=== PATIENT | male | born 1940 | race Caucasian/White ===

== ENCOUNTER → 2016-06-23 | Outpatient (CLI) | payer OTHER, MEDICARE ==
[~2016-06-23] MED LIST: ALLO100T PO; ALLO1TAB51 PO; BIOF500T PO; CALC-393 PO; CALCTAB5 PO; CHOL1000 PO; CHOL5000 PO; CYM/30 PO; DOCU100C22 PO; DOCU100C31 PO; DXY100 PO; FLUOCRE TOP; FURO-85 PO; LYR50 PO; METO5TAB25 PO; MULT-845 PO; OXYC-57 PO; POTA10CA28 PO; TAMS0.4C38 PO; TAMS0.4C59 PO; TNR25 PO; WARF5TAB7 PO; XRL15 PO
== END | disposition home or self-care (01) ==
LOC: C.LABBC 10:16
PROVIDERS: ATTEND Urology
DX: N40.0 Benign prostatic hyperplasia without lower urinary tract symptoms (principal); I48.91 Unspecified atrial fibrillation; Z12.5 Encounter for screening for malignant neoplasm of prostate

== ENCOUNTER → 2016-09-10 | Outpatient (CLI) | payer OTHER, MEDICARE ==
--- NOTE | 2016-09-10 12:45 | DIAGNOSTIC IMAGING REPORT ---
CHEST 2 VIEWS ROUTINE CLINICAL HISTORY: R05 [id number] COMPARISON STUDY: 09/11/2013 FINDINGS: The heart is enlarged. Postsurgical changes are present in left hemithorax. There is a small left pleural effusion. There is no acute parenchymal consolidation. There is prominence of the central pulmonary arteries. Pulmonary arterial hypertension must be considered. There is calcification of the posterior longitudinal ligament with the dorsal spine.[ IMPRESSION: 1. Cardiomegaly with possible pulmonary hypertension 2. Mild left pleural effusion 3. No evidence of acute parenchymal consolidation Electronically signed by: Manuel Rogers M.D. 09/10/2016 12:43 PM Dictated Date/Time: 09/10/2016 12:42 PM
== END | disposition home or self-care (01) ==
LOC: C.LABBC 12:29
PROVIDERS: ATTEND Physician Assistant
DX: R05 Cough (principal); I48.91 Unspecified atrial fibrillation; R73.9 Hyperglycemia, unspecified; M19.90 Unspecified osteoarthritis, unspecified site; N18.9 Chronic kidney disease, unspecified; I10 Essential (primary) hypertension; I51.7 Cardiomegaly; J90 Pleural effusion, not elsewhere classified

== ENCOUNTER → 2016-11-24 | Outpatient (CLI) | payer OTHER, MEDICARE ==
[2016-11-24 13:41] LABS: INR 1.2 (0.9-1.1); PROTHROMBIN TIME (PATIENT) 13.2 SECONDS (9.0-12.0)
== END | disposition home or self-care (01) ==
LOC: C.LABBC 09:34
PROVIDERS: ATTEND Internal Medicine Geriatric Medicine
DX: I10 Essential (primary) hypertension (principal); I48.91 Unspecified atrial fibrillation; N18.9 Chronic kidney disease, unspecified; M19.90 Unspecified osteoarthritis, unspecified site; R73.9 Hyperglycemia, unspecified

== ENCOUNTER → 2016-12-16 | Outpatient (CLI) | payer OTHER, MEDICARE ==
[2016-12-16 13:31] LABS: BASO ABS # 0.06 K/uL (0-0.2); COMPLETE YES; EOS % 6.3 %; HEMATOCRIT 46.4 % (42-52); IG% 0.2 %; LYMPH % 19.5 %; LYMPH ABS # 1.15 K/uL (1.2-3.4); MEAN CELL VOLUME 103.8 fL (80-100); MEAN CORPUSCULAR HEMOGLOBIN 33.8 pg (25-34); MEAN CORPUSCULAR HGB CONC 32.5 g/dl (32-36); MEAN PLATELET VOLUME 11.9 fL (7.4-10.4); PLATELET COUNT 178 K/uL (130-400); RED BLOOD COUNT 4.47 M/uL (4.7-6.1); WHITE BLOOD COUNT 5.91 K/uL (4.8-10.8)
[2016-12-16 13:53] LABS: BLOOD UREA NITROGEN 46 mg/dl (7-18); BUN/CREATININE RATIO 32.8 (10-20); CALCIUM 9.8 mg/dl (8.5-10.1); CARBON DIOXIDE 31 mmol/L (21-32); CHLORIDE 100 mmol/L (98-107); GLUCOSE 112 mg/dl (70-99); POTASSIUM 3.5 mmol/L (3.5-5.1); SODIUM 139 mmol/L (136-145)
[2016-12-16 14:56] LABS: LYME DISEASE AB IGM NEG (NEG)
[2016-12-16 14:58] LABS: LYME DISEASE AB IGG POS (NEG)
[2016-12-17 07:38] LABS: ESTIMATED AVERAGE GLUCOSE 117 mg/dl; HA1C FLAG Normal (Normal)
[2016-12-22 23:16] LABS: 18KDIGG BAND NONREACTIVE (NONREACTIVE); 23KDIGG BAND NONREACTIVE (NONREACTIVE); 23KDIGM BAND NONREACTIVE (NONREACTIVE); 28KDIGG BAND NONREACTIVE (NONREACTIVE); 30KDIGG BAND NONREACTIVE (NONREACTIVE); 39KDIGG BAND NONREACTIVE (NONREACTIVE); 39KDIGM BAND NONREACTIVE (NONREACTIVE); 41KDIGG BAND REACTIVE (NONREACTIVE); 41KDIGM BAND NONREACTIVE (NONREACTIVE); 45KDIGG BAND NONREACTIVE (NONREACTIVE); 58KDIGG BAND NONREACTIVE (NONREACTIVE); 66KDIGG BAND NONREACTIVE (NONREACTIVE); 93KDIGG BAND NONREACTIVE (NONREACTIVE)
== END | disposition home or self-care (01) ==
LOC: C.LABBC 10:36
PROVIDERS: ATTEND Internal Medicine Geriatric Medicine
DX: R73.9 Hyperglycemia, unspecified (principal); G62.9 Polyneuropathy, unspecified; I10 Essential (primary) hypertension

== ENCOUNTER 2016-12-22 12:38 | Inpatient (IN) | payer OTHER, MEDICARE ==
[~2016-12-22] VITALS: Ht 172.7 cm; Wt 122.0 kg
[~2016-12-22 12:38] MED LIST changes: -ALLO100T PO; -CALC-393 PO; -CHOL1000 PO; -CYM/30 PO; -DOCU100C31 PO; -DXY100 PO; -FLUOCRE TOP; -OXYC-57 PO; -TAMS0.4C38 PO; -XRL15 PO
[2016-12-22 12:40] VITALS: Ht 172.7 cm; Wt 122.0 kg
[2016-12-22] MEDS ORDERED: FLUOCRE TOP (13:09)
[2016-12-22] MEDS ORDERED: TAMS0.4C38 PO (13:09)
[2016-12-22] MEDS ORDERED: DXY100 PO (13:09)
[2016-12-22] MEDS ORDERED: POTA10CA28 PO (13:09)
[2016-12-22] MEDS ORDERED: DOCU100C31 PO (13:09)
[2016-12-22] MEDS ORDERED: ALLO100T PO (13:09)
[2016-12-22] MEDS ORDERED: OXYC-57 PO (13:09)
[2016-12-22] MEDS ORDERED: CYM/30 PO (13:09)
[2016-12-22] MEDS ORDERED: XRL15 PO (13:09)
[2016-12-22] MEDS ORDERED: CHOL1000 PO (13:09)
[2016-12-22] MEDS ORDERED: CALC-393 PO (13:09)
--- NOTE | 2016-12-22 13:26 | EMERGENCY ROOM VISIT NOTE ---
History Report prepared by Avelino: Philip Arriaga Under the Supervision of: Dr. Filipe Newman M.D. First contact with patient: 13:07 Chief Complaint: LEG PAIN,LEG INJURY Stated Complaint: BRUISE AND PAIN IN RIGHT CALF History of Present Illness The patient is a 75 year old male who presents to the Emergency Room with complaints of constant left leg pain and swelling for the past five days. The patient states that she got up from his lounge chair, and he stumbled and hit his cane on his legs, and it scraped it on the way down. He states that the next day he was having severe pain and some blistering, so he went to the hospital for x-rays and an ultrasound. There were no fractures or blood clots. The patient states that he has been taking Percocet and Tylenol for the pain every 6 hours. Additionally, the patient states that he is on Xarelto for A- fib. The patient states that he saw his doctor this morning, and they told him to come here for further evaluation. The patient denies any fevers, chills, toe pain, numbness, weakness, chest pain, or shortness of breath. Source of History: patient Onset: five days ago Position: leg (left) Quality: other (swelling) Timing: constant Associated Symptoms: No fevers, No chills, No chest pain, No SOB, No weakness, No numbness Note: Associated symptoms: blisters Review of Systems See HPI for pertinent positives & negatives. A total of 10 systems reviewed and were otherwise negative. Past Medical & Surgical Medical Problems: (1) Anticoagulants,Lt,Current Use (2) Atrial Fibrillation (3) Calculus Of Kidney (4) Chronic Kidney Disease, Unspecified (5) Diab Adela Wo Compl, Type Ii Or Unspec Type, Not Uncntrld (6) Gout Nos (7) Hx-Venous Thrombosis&Embolism (8) Hyperlipidemia Nec/Nos (9) Hypertension Nos (10) Knee Joint Replacement Status (11) Leg injury (12) Lumbago (13) Obstructive Sleep Apnea (Adult) (Pediatric) (14) Osteoarthros Nos-Unspec (15) Personal History Of Pulmonary Embolism (16) Personal History Of Tuberculosis (17) Spinal Stenosis-Oth Site Surgical Problems: (1) History of back surgery Old medical records were reviewed. Nurse's notes were reviewed and I agree with. Family History Patient reports no known family medical history. Social History Smoking Status: Never Smoker Drug Use: none Marital Status: Housing Status: lives with family Occupation Status: retired Current/Historical Medications Scheduled Allopurinol (Zyloprim), 200 MG PO DAILY Atenolol (Atenolol), 25 MG PO DAILY Bioflavonoid Products (Shante-C), 1 TAB PO DAILY Calcium Carbonate (Calcium), 1,200 MG PO DAILY Cholecalciferol (Vitamin D3), 1,000 UNITS PO DAILY Docusate Sodium (Docusate Sodium), 100 MG PO BID Doxycycline Hyclate (Doxycycline Hyclate), 100 MG PO BID Duloxetine HCl (Cymbalta), 30 MG PO QPM Fluocinonide Emulsified Base (Fluocinonide-E), 1 APPLN TOP BID Furosemide (Lasix), 60 MG PO QAM Metolazone (Zaroxolyn), 5 MG PO MWF Multiple Vitamins W/ Minerals (Centrum Silver Adult 50+), 1 TAB PO QDB Potassium Chloride (Micro-K Ext Rel), 20 MEQ PO AMPM Rivaroxaban (Xarelto), 15 MG PO DAILY Tamsulosin Hcl (Flomax), 0.4 MG PO QPM Scheduled PRN Oxycodone/Acetaminophen 5MG/325MG (Percocet 5MG/325MG), 1 TABLET PO Q6H PRN for Pain Allergies Coded Allergies: No Known Allergies (Verified , 10/12/15) Physical Exam Vital Signs Date Time Temp Pulse Resp B/P (MAP) Pulse Ox O2 Delivery O2 Flow Rate FiO2 12/22/16 16:30 69 18 116/63 94 12/22/16 15:25 95 Room Air 12/22/16 14:30 65 20 115/39 95 12/22/16 12:40 36.6 63 20 128/64 96 Physical Exam General: Non-ill appearing older male in no acute distress. HEENT: Normal cephalic atraumatic. Pupils are equal round and reactive to light. Extraocular movements are intact. Oropharynx is pink with moist mucous membranes. No swelling of the mouth lips or tongue. Neck: Supple with a midline trachea. No meningeal signs or stiffness, no JVD or bruits. No Stridor. Chest: Clear to auscultation bilaterally. No wheezes or rhonchi. No increased work of breathing. Heart: regular rate and rhythm. Abdomen: Soft nontender, nondistended without rebound guarding or rigidity. Extremities: Left lower extremity has marked swelling and edema with purplish discoloration. Dopplerable pulse. No pain in toes. Normal motor and sensation in the toes. No cyanosis clubbing or edema. No calf tenderness or assymetry Spine/Back. Non tender to palpation. No CVA tenderness Skin: Good turgor without rashes. Neurologic exam: Cranial nerves two through 12 are intact. Motor and sensation are intact and symmetrical throughout. Medical Decision & Procedures ER Provider Diagnostic Interpretation: Radiology results as stated below per my review and radiologist interpretation: LEFT LOWER EXTREMITY VENOUS DOPPLER HISTORY: eval for DVT, hematoma COMPARISON STUDY: None. FINDINGS: There is normal compressibility, flow, and augmentation within the left lower extremity deep venous system. Subcutaneous edema/fluid within the left calf IMPRESSION: No DVT within the left lower extremity. Subcutaneous edema/fluid within the left calf. Electronically signed by: Richard Torres M.D. 12/22/2016 2:27 PM Dictated Date/Time: 12/22/2016 2:27 PM CHEST ONE VIEW PORTABLE CLINICAL HISTORY: Atypical chest pain COMPARISON STUDY: 09/10/2016 FINDINGS: The heart remains enlarged. There is stable prominence of central pulmonary arteries. There is no lobar consolidation. There is no failure. There is chronic blunting of the left lateral costophrenic angle.[ IMPRESSION: 1. Cardiomegaly with possible pulmonary arterial hypertension 2. No evidence of focal pulmonary consolidation 3. Stable left pleural fluid/scarring Electronically signed by: Manuel Rogers M.D. 12/22/2016 1:37 PM Dictated Date/Time: 12/22/2016 1:36 PM Laboratory Results 12/22/16 13:34 Red Blood Count 3.91, Mean Corpuscular Volume 102.6, Mean Corpuscular Hemoglobin 32.2, Mean Corpuscular Hemoglobin Concent 31.4, Mean Platelet Volume 10.6, Neutrophils (%) (Auto) 67.4, Lymphocytes (%) (Auto) 16.5, Monocytes (%) ( Auto) 12.9, Eosinophils (%) (Auto) 2.6, Basophils (%) (Auto) 0.5, Neutrophils # (Auto) 4.90, Lymphocytes # (Auto) 1.20, Monocytes # (Auto) 0.94, Eosinophils # ( Auto) 0.19, Basophils # (Auto) 0.04 12/22/16 13:34 Test 12/22/16 13:34 White Blood Count 7.28 K/uL (4.8-10.8) Red Blood Count 3.91 M/uL (4.7-6.1) Hemoglobin 12.6 g/dL (14.0-18.0) Hematocrit 40.1 % (42-52) Mean Corpuscular Volume 102.6 fL (80-100) Mean Corpuscular Hemoglobin 32.2 pg (25-34) Mean Corpuscular Hemoglobin Concent 31.4 g/dl (32-36) Platelet Count 179 K/uL (130-400) Mean Platelet Volume 10.6 fL (7.4-10.4) Neutrophils (%) (Auto) 67.4 % Lymphocytes (%) (Auto) 16.5 % Monocytes (%) (Auto) 12.9 % Eosinophils (%) (Auto) 2.6 % Basophils (%) (Auto) 0.5 % Neutrophils # (Auto) 4.90 K/uL (1.4-6.5) Lymphocytes # (Auto) 1.20 K/uL (1.2-3.4) Monocytes # (Auto) 0.94 K/uL (0.11-0.59) Eosinophils # (Auto) 0.19 K/uL (0-0.5) Basophils # (Auto) 0.04 K/uL (0-0.2) RDW Standard Deviation 56.6 fL (36.4-46.3) RDW Coefficient of Variation 15.2 % (11.5-14.5) Immature Granulocyte % (Auto) 0.1 % Immature Granulocyte # (Auto) 0.01 K/uL (0.00-0.02) Nucleated RBC Absolute Count (auto) 0.03 K/uL (0-0) Nucleated Red Blood Cells % 0.4 % Prothrombin Time 14.0 SECONDS (9.0-12.0) Prothromb Time International Ratio 1.3 (0.9-1.1) Activated Partial Thromboplast Time 38.2 SECONDS (21.0-31.0) Partial Thromboplastin Ratio 1.5 Anion Gap 6.0 mmol/L (3-11) Estimated GFR () 48.1 Estimated GFR (Non- 41.5 BUN/Creatinine Ratio 37.8 (10-20) Calcium Level 9.5 mg/dl (8.5-10.1) Total Bilirubin 1.5 mg/dl (0.2-1) Direct Bilirubin 0.4 mg/dl (0-0.2) Aspartate Amino Transf (AST/SGOT) 22 U/L (15-37) Alanine Aminotransferase (ALT/SGPT) 25 U/L (12-78) Alkaline Phosphatase 54 U/L (45-117) Total Protein 8.0 gm/dl (6.4-8.2) Albumin 3.3 gm/dl (3.4-5.0) Lipase 108 U/L (73-393) Laboratory studies as stated above per my review. Medications Administered Medications (Trade) Dose Ordered Sig/Guero Route Start Time Stop Time Status Last Admin Dose Admin Morphine Sulfate (MoRPHine SULFATE INJ) 4 mg NOW STAT IV 12/22/16 14:56 12/22/16 14:57 DC 12/22/16 15:04 4 MG Ondansetron HCl (Zofran Inj) 4 mg NOW STAT IV 12/22/16 14:56 12/22/16 14:57 DC 12/22/16 15:03 4 MG Ondansetron HCl (Zofran Inj) 4 mg Q6H PRN IV 12/22/16 16:30 01/21/17 16:29 12/22/16 16:45 4 MG Morphine Sulfate (MoRPHine SULFATE INJ) 2 mg Q2H PRN IV 12/22/16 16:30 01/05/17 16:29 12/22/16 16:45 2 MG ECG Indication: other (leg injruy) Rate (beats per minute): 58 Rhythm: atrial fibrillation Findings: other (low voltage non-specific T wave abnormality) Comparison ECG Date: 09/17/13 Change: Rate has decreased ED Course 1307: Past medical records reviewed. The patient was evaluated in room A12, and a complete history and physical examination were performed. 1450: I reevaluated the patient, and he was resting. 1456: Zofran Inj 4mg IV, Morphine Sulfate 4mg IV 1526: Discussed the patient's case with Deedee Sparrow PA-C. The patient will be evaluated for further management. Medical Decision Differentials include, but are not limited to; DVT, compartment syndrome, infection, and hematoma This patient comes in as described above he's had pain and swelling in his left leg after falling last week he is on Xarelto is seen by his primary care doctor who referred in the ER for concern for possible compartment syndrome. The patient has no pain in his toes or numbness or weakness. He does have a dopplerable pulse. He does have significant edema in his foot and calf says difficult to feel he tells me that the leg. It has been unchanged for the last several days. He does not appear acutely worse today according to the family, he does have a lot of pain management problems with this. He was given IV morphine and Zofran. EKG and blood testing was obtained. He has no DVT but he has edema. I do think he needs to be admitted for further treatment and evaluation monitoring orthopedic consultation and observation. I have consulted the [facility] [address] hospitalist and they saw him in the ER. Medication Reconcilliation Current Medication List: was personally reviewed by me Blood Pressure Screening Patient's blood pressure: Normal blood pressure Consults Time Called: 1520 Consulting Physician: Deedee Sparrow PA-C Returned Call: 1526 Discussed the patient's case with Deedee Sparrow PA-C. The patient will be evaluated for further management. Impression Primary Impression: Edema of left lower extremity Additional Impression: On rivaroxaban therapy Scribe Attestation The scribe's documentation has been prepared under my direction and personally reviewed by me in its entirety. I confirm that the note above accurately reflects all work, treatment, procedures, and medical decision making performed by me. Departure Information Dispostion Being Evaluated By Hospitalist Referrals Saleem Gil M.D. (PCP) Patient Instructions My [facility] Problem Qualifiers
--- NOTE | 2016-12-22 13:38 | DIAGNOSTIC IMAGING REPORT ---
CHEST ONE VIEW PORTABLE CLINICAL HISTORY: Atypical chest pain COMPARISON STUDY: 09/10/2016 FINDINGS: The heart remains enlarged. There is stable prominence of central pulmonary arteries. There is no lobar consolidation. There is no failure. There is chronic blunting of the left lateral costophrenic angle.[ IMPRESSION: 1. Cardiomegaly with possible pulmonary arterial hypertension 2. No evidence of focal pulmonary consolidation 3. Stable left pleural fluid/scarring Electronically signed by: Manuel Rogers M.D. 12/22/2016 1:37 PM Dictated Date/Time: 12/22/2016 1:36 PM
[2016-12-22 13:49] LABS: BASO % 0.5 %; BASO ABS # 0.04 K/uL (0-0.2); COMPLETE YES; EOS % 2.6 %; HEMATOCRIT 40.1 % (42-52); IG% 0.1 %; LYMPH % 16.5 %; MEAN CELL VOLUME 102.6 fL (80-100); MEAN CORPUSCULAR HEMOGLOBIN 32.2 pg (25-34); MEAN CORPUSCULAR HGB CONC 31.4 g/dl (32-36); MEAN PLATELET VOLUME 10.6 fL (7.4-10.4); MONO % 12.9 %; NEUT % 67.4 %; PLATELET COUNT 179 K/uL (130-400); RED BLOOD COUNT 3.91 M/uL (4.7-6.1); WHITE BLOOD COUNT 7.28 K/uL (4.8-10.8)
[2016-12-22 14:06] LABS: INR 1.3 (0.9-1.1); PARTIAL THROMBOPLASTIN RATIO 1.5
[2016-12-22 14:14] LABS: ALT/SGPT 25 U/L (12-78); BLOOD UREA NITROGEN 61 mg/dl (7-18); BUN/CREATININE RATIO 37.8 (10-20); CALCIUM 9.5 mg/dl (8.5-10.1); CARBON DIOXIDE 32 mmol/L (21-32); CHLORIDE 98 mmol/L (98-107); GLUCOSE 109 mg/dl (70-99); POTASSIUM 3.6 mmol/L (3.5-5.1); SODIUM 136 mmol/L (136-145)
[2016-12-22 14:16] LABS: ALKALINE PHOSPHATASE 54 U/L (45-117); AST/SGOT 22 U/L (15-37)
--- NOTE | 2016-12-22 14:28 | DIAGNOSTIC IMAGING REPORT ---
LEFT LOWER EXTREMITY VENOUS DOPPLER HISTORY: eval for DVT, hematoma COMPARISON STUDY: None. FINDINGS: There is normal compressibility, flow, and augmentation within the left lower extremity deep venous system. Subcutaneous edema/fluid within the left calf IMPRESSION: No DVT within the left lower extremity. Subcutaneous edema/fluid within the left calf. Electronically signed by: Richard Torres M.D. 12/22/2016 2:27 PM Dictated Date/Time: 12/22/2016 2:27 PM
[2016-12-22] MEDS ORDERED: ONDANSETRON INJ 2 MG/ML 2 ML VIAL IV STA (14:56)
[2016-12-22] MEDS ORDERED: MoRPHine SULFATE 4 MG/ML 1 ML CARP\\VIAL IV STA (14:56)
[2016-12-22 15:25] VITALS: O2SAT 95
--- NOTE | 2016-12-22 16:17 | History and Physical ---
History & Physical Date & Time of Service: Dec 22, 2016 at 16:07 Chief Complaint: Bruise And Pain In Right Calf Primary Care Physician: Saleem Gil M.D. History of Present Illness Source: patient, family This patient is a 75-year-old male that presents emergency department with diffuse left leg swelling and pain after having a mechanical fall 5 days ago. The patient typically ambulates with 2 canes. He landed on his cane during the fall. He denies any other injuries. The patient was evaluated at [facility] 2 days after the fall. Imaging was performed. No fractures of the leg were noted. The patient has a history of A. fib and is on chronic anticoagulation with Xarelto. The patient was seen by his primary care physician's office this morning, and sent here for further evaluation. The patient does complain of significant pain in the leg. He denies any numbness, tingling or weakness into the foot. Past Medical/Surgical History Surgical Problems: (1) History of back surgery Status: Chronic A. fib Diastolic heart failure Chronic kidney disease creatinine typically 1.3-1.7 Hypertension Peripheral neuropathy History of pancreatic cysts. History of spinal stenosis status post spinal surgery in 2013 Family History Patient reports no known family medical history. Social History Smoking Status: Never Smoker Smokeless Tobacco Use: No Alcohol Use: none Drug Use: none Marital Status: Housing status: lives with family Occupational Status: retired Immunizations History of Influenza Vaccine: N/A Influenza Vaccine Date: Feb 07, 2010 History of Tetanus Vaccine?: Yes Tetanus Immunization Date: May 30, 2005 History of Pneumococcal: Yes Pneumococcal Date: May 30, 2005 History of Hepatitis B Vaccine: No Multi-Drug Resistant Organisms History of MDRO: No Allergies Coded Allergies: No Known Allergies (Verified , 10/12/15) Home Medications Scheduled Allopurinol (Zyloprim), 200 MG PO DAILY Atenolol (Atenolol), 25 MG PO DAILY Bioflavonoid Products (Shante-C), 1 TAB PO DAILY Calcium Carbonate (Calcium), 1,200 MG PO DAILY Cholecalciferol (Vitamin D3), 1,000 UNITS PO DAILY Docusate Sodium (Docusate Sodium), 100 MG PO BID Doxycycline Hyclate (Doxycycline Hyclate), 100 MG PO BID Duloxetine HCl (Cymbalta), 30 MG PO QPM Fluocinonide Emulsified Base (Fluocinonide-E), 1 APPLN TOP BID Furosemide (Lasix), 60 MG PO QAM Metolazone (Zaroxolyn), 5 MG PO MWF Multiple Vitamins W/ Minerals (Centrum Silver Adult 50+), 1 TAB PO QDB Potassium Chloride (Micro-K Ext Rel), 20 MEQ PO AMPM Rivaroxaban (Xarelto), 15 MG PO DAILY Tamsulosin Hcl (Flomax), 0.4 MG PO QPM Scheduled PRN Oxycodone/Acetaminophen 5MG/325MG (Percocet 5MG/325MG), 1 TABLET PO Q6H PRN for Pain Review of Systems 10 system review performed and negative unless noted in HPI or below Physical Exam Vital Signs Date Time Temp Pulse Resp B/P (MAP) Pulse Ox O2 Delivery O2 Flow Rate FiO2 12/22/16 15:25 95 Room Air 12/22/16 14:30 65 20 115/39 95 12/22/16 12:40 36.6 63 20 128/64 96 General Appearance: no apparent distress Head: normocephalic Eyes: EOMI Neck: no JVD Respiratory/Chest: lungs clear Cardiovascular: + pertinent finding (occasionally irregular. No murmur auscultated.) Abdomen/GI: normal bowel sounds, non tender, soft Extremities/Musculoskelatal: + pertinent finding (diffuse nonpitting edema starting from the mid thigh distally to the left foot. The skin is intact, but very tight. DP pulse palpable. Capillary refill less than 2 seconds. The patient is able to dorsiflex and plantarflex the foot.) Neurologic/Psych: no motor/sensory deficits, oriented x 3 Skin: warm/dry Diagnostics Laboratory Results Results Past 24 Hours Test 12/22/16 13:34 Range/Units White Blood Count 7.28 4.8-10.8 K/uL Red Blood Count 3.91 4.7-6.1 M/uL Hemoglobin 12.6 14.0-18.0 g/dL Hematocrit 40.1 42-52 % Mean Corpuscular Volume 102.6 80-100 fL Mean Corpuscular Hemoglobin 32.2 25-34 pg Mean Corpuscular Hemoglobin Concent 31.4 32-36 g/dl Platelet Count 179 130-400 K/uL Mean Platelet Volume 10.6 7.4-10.4 fL Neutrophils (%) (Auto) 67.4 % Lymphocytes (%) (Auto) 16.5 % Monocytes (%) (Auto) 12.9 % Eosinophils (%) (Auto) 2.6 % Basophils (%) (Auto) 0.5 % Neutrophils # (Auto) 4.90 1.4-6.5 K/uL Lymphocytes # (Auto) 1.20 1.2-3.4 K/uL Monocytes # (Auto) 0.94 0.11-0.59 K/uL Eosinophils # (Auto) 0.19 0-0.5 K/uL Basophils # (Auto) 0.04 0-0.2 K/uL RDW Standard Deviation 56.6 36.4-46.3 fL RDW Coefficient of Variation 15.2 11.5-14.5 % Immature Granulocyte % (Auto) 0.1 % Immature Granulocyte # (Auto) 0.01 0.00-0.02 K/uL Nucleated RBC Absolute Count (auto) 0.03 0-0 K/uL Nucleated Red Blood Cells % 0.4 % Prothrombin Time 14.0 9.0-12.0 SECONDS Prothromb Time International Ratio 1.3 0.9-1.1 Activated Partial Thromboplast Time 38.2 21.0-31.0 SECONDS Partial Thromboplastin Ratio 1.5 Sodium Level 136 136-145 mmol/L Potassium Level 3.6 3.5-5.1 mmol/L Chloride Level 98 98-107 mmol/L Carbon Dioxide Level 32 21-32 mmol/L Anion Gap 6.0 3-11 mmol/L Blood Urea Nitrogen 61 7-18 mg/dl Creatinine 1.60 0.60-1.40 mg/dl Estimated GFR () 48.1 Estimated GFR (Non- 41.5 BUN/Creatinine Ratio 37.8 10-20 Random Glucose 109 70-99 mg/dl Calcium Level 9.5 8.5-10.1 mg/dl Total Bilirubin 1.5 0.2-1 mg/dl Direct Bilirubin 0.4 0-0.2 mg/dl Aspartate Amino Transf (AST/SGOT) 22 15-37 U/L Alanine Aminotransferase (ALT/SGPT) 25 12-78 U/L Alkaline Phosphatase 54 45-117 U/L Total Protein 8.0 6.4-8.2 gm/dl Albumin 3.3 3.4-5.0 gm/dl Lipase 108 73-393 U/L Diagnostic Radiology LEFT LOWER EXTREMITY VENOUS DOPPLER HISTORY: eval for DVT, hematoma COMPARISON STUDY: None. FINDINGS: There is normal compressibility, flow, and augmentation within the left lower extremity deep venous system. Subcutaneous edema/fluid within the left calf IMPRESSION: No DVT within the left lower extremity. Subcutaneous edema/fluid within the left calf. IMPRESSION: 1. Cardiomegaly with possible pulmonary arterial hypertension 2. No evidence of focal pulmonary consolidation 3. Stable left pleural fluid/scarring Electronically signed by: Manuel Rogers M.D. 12/22/2016 1:37 PM Dictated Date/Time: 12/22/2016 1:36 PM Impression Assessment and Plan 75-year-old male presents emergency department with a mechanical fall and significant ecchymosis, swelling and pain in the left lower extremity. Patient was sent in from the primary care physician for concerns of compartment syndrome. Left leg injury -Observe on medical floor -Hold Xarelto -Morphine 2 mg every 2 hours as needed for pain -PT/OT -Orthopedic surgery consult. I spoke with Carlos Bernard PA-C. The patient will be evaluated by orthopedics today. -consider CT pending ortho consult -bedrest and elevate leg History of paroxysmal A. fib -Continue atenolol 25 mg daily -Hold Anticoagulation as noted above -Continue Lasix 60 mg daily -Continue metolazone 5 mg Thursday, Thursday, Thursday chronic kidney disease-creatinine is at baseline DVT prophylaxis -Anticoagulation contraindicated -No TEDs, SCDs to L leg CODE STATUS -LEVEL I FULL CODE Attending Addendum: I have physically seen and examined this patient, have directed the physician assistants medical activities, and agree with the H&P as noted above with the following exceptions: NONE The patient is awake, well-developed and adequately nourished, alert and oriented 3, normocephalic and atraumatic, lying in bed and in no acute distress. HEENT--PERRL, EOMI, mucous membranes and oropharynx dry. Neck--supple, no JVD or bruits, thyroid normal, trachea midline, no adenopathy. Heart--normal S1 and S2, occasional extra beats, no murmurs, rubs or gallops. Lungs--clear bilaterally with good air movement, no respiratory distress, no accessory muscle use. Abdomen--normal bowel sounds and soft, nontender and nondistended, no hernias or masses, no organomegaly. Extremities--right lower extremity normal. Left lower extremity with significant swelling, tenderness skin, and warmth Dermatologic--right lower extremity normal. Neurologic--cranial nerves II through XII grossly intact, motor and sensory examination normal. Rheumatologic--normal range of motion, nontender, muscles and joints. Psychiatric--normal affect. Assessment and Plan: 1. Left lower extremity with pain, swelling risk for compartment syndrome. Has been assessed by orthopedics Dr. Jiang while in the ED, and feels he does not need surgery at this time, that needs to be watched closely. Admit to the medical floor. Hold Xarelto. If there is any question of change, we will order an MRI lower extremity. Keep leg at heart level. Level of Care Med/Surg Advanced Directives Existing Advance Directive: No Existing Living Will: Yes Existing Power of Rural Mail Carrier: Yes Resuscitation Status FULL RESUSCITATION VTE Prophylaxis VTE Risk Assessment Done? Y/N: Yes Risk Level: Low Given or contraindicated: Contraindicated
[2016-12-22] MEDS ORDERED: ONDANSETRON INJ 2 MG/ML 2 ML VIAL IV PRN (16:30)
[2016-12-22] MEDS ORDERED: ALUMINUM/MAGNESIUM/SIMETH (MAALOX MAX) 30 ML UDC PO PRN (16:30)
[2016-12-22] MEDS ORDERED: MAGNESIUM HYDROXIDE SUSP 30 ML UDC PO PRN (16:30)
[2016-12-22] MEDS ORDERED: ACETAMINOPHEN 325 MG TAB PO PRN (16:30)
[2016-12-22] MEDS: MoRPHine SULFATE 2 MG/ML CARP IV PRN ×3 (16:45→23:52)
[2016-12-22] MEDS ORDERED: IV FLUIDS COMPLETED PRN ×2 (18:15→18:30)
--- NOTE | 2016-12-22 19:22 | ORTHOPEDIC CONSULTATION ---
DATE OF CONSULTATION: 12/22/2016 HISTORY OF PRESENT ILLNESS: The patient is a 75-year-old male who has known spinal stenosis and weakness in his right leg. He walks with 2 canes. He got his leg wedged between a sofa and a leg of furniture and his cane fell across in a horizontal fashion. He contused the front of his leg. This was 6 days ago. He had some swelling and bruising. He went to [facility] and they chose to keep him on his Xarelto as he has atrial fibrillation on chronic coagulants. The patient has some pain, but no numbness of the foot and has had no problems with circulation. PAST MEDICAL HISTORY: Also positive for chronic kidney disease, hypertension, peripheral neuropathy, pancreatic cyst. Has a Lookery filter in place. PAST FAMILY HISTORY: Noncontributory. SOCIAL HISTORY: Lives at home with and family. MEDICATIONS: Multiple, also include allopurinol, atenolol, biflavonoid products, calcium carbonate, vitamin D, docusate sodium, doxycycline hyclate, Cymbalta, fluocinonide E, Lasix, Zaroxolyn, multiple vitamins, Micro-K extended release, potassium tablets, Xarelto was on 15 mg daily, last dose was yesterday evening. Also on Flomax 0.4 mg q.p.m. PHYSICAL EXAMINATION: Demonstrates in no distress. He is not any severe pain. He can actively dorsiflex and plantarflex his left foot without difficulty and it is not painful. He is tender over the anterior compartment and lateral compartment. There is moderate swelling there. The other compartments are not tense or swollen. He does have ecchymosis from the knee level down to the foot. He does have edema from the knee level down to the foot. Does have some fracture blisters over the anterior knee, has old anterior scar across the knee. ASSESSMENT: Left leg contusion and bleeding due to anticoagulants. Ultrasound, no clear hematoma, just edema fluid. He does have some risk of developing a lateral or anterior compartment syndrome, but there is no evidence at all of that at this time with no pain on passive or active motion involving any of the compartments. At this time, I would recommend stopping the Xarelto until the situation resolves. He has a filter in place. Would recommend no anticoagulants. Would recommend ice to the extremity. Recommend elevate at heart level. Recommend bed rest and no physical therapy at this time. He may need bed rest for several days until the situation settles down.
[2016-12-22 20:30] VITALS: BP 103/64; PULSE 60; TEMP 37.2; O2SAT 90
[2016-12-22] MEDS: TAMSULOSIN HCL 0.4 MG CAP PO SCH (21:00)
[2016-12-22] MEDS: DULOXETINE (CYMBALTA) 30 MG CAP PO SCH (21:01)
[2016-12-22 23:15] VITALS: BP 120/71; PULSE 77; TEMP 36.5; O2SAT 94
[2016-12-23] MEDS: MoRPHine SULFATE 2 MG/ML CARP IV PRN ×3 (05:25→19:51)
[2016-12-23 05:45] LABS: BASO % 0.4 %; BASO ABS # 0.03 K/uL (0-0.2); COMPLETE YES; EOS % 2.3 %; HEMATOCRIT 36.1 % (42-52); IG% 0.3 %; LYMPH % 15.7 %; LYMPH ABS # 1.15 K/uL (1.2-3.4); MEAN CELL VOLUME 103.7 fL (80-100); MEAN CORPUSCULAR HEMOGLOBIN 33.6 pg (25-34); MEAN CORPUSCULAR HGB CONC 32.4 g/dl (32-36); MEAN PLATELET VOLUME 11.1 fL (7.4-10.4); MONO % 17.7 %; NEUT % 63.6 %; PLATELET COUNT 165 K/uL (130-400); RED BLOOD COUNT 3.48 M/uL (4.7-6.1); WHITE BLOOD COUNT 7.34 K/uL (4.8-10.8)
[2016-12-23 05:51] LABS: INR 1.2 (0.9-1.1); PROTHROMBIN TIME (PATIENT) 12.7 SECONDS (9.0-12.0)
[2016-12-23 06:16] LABS: BLOOD UREA NITROGEN 63 mg/dl (7-18); BUN/CREATININE RATIO 39.2 (10-20); CALCIUM 9.1 mg/dl (8.5-10.1); CARBON DIOXIDE 30 mmol/L (21-32); CHLORIDE 101 mmol/L (98-107); GLUCOSE 118 mg/dl (70-99); MAGNESIUM 2.3 mg/dl (1.8-2.4); POTASSIUM 3.7 mmol/L (3.5-5.1); SODIUM 137 mmol/L (136-145)
[2016-12-23 07:20] VITALS: BP 134/88; PULSE 82; TEMP 36.9; O2SAT 93
--- NOTE | 2016-12-23 07:27 | Progress Note ---
Orthopedic SOAP Note Subjective Date of Service: Dec 23, 2016. Reports: pain controlled w PO medications Problem List Medical Problems: (1) Edema of left lower extremity Status: Acute (2) On rivaroxaban therapy Status: Acute (3) Pancreatic abnormality Status: Acute (4) Warfarin-induced coagulopathy Status: Acute Objective leg swollen , some tenseness lateral compartment and anterior compartment but no severe pain no pain with passive rom and no numbness and good motor function. no major change since last pm exam Date Time Temp Pulse Resp B/P (MAP) Pulse Ox O2 Delivery O2 Flow Rate FiO2 12/23/16 07:05 Room Air 12/23/16 00:00 Room Air 12/22/16 23:15 36.5 77 20 120/71 (87) 94 Room Air 12/22/16 20:30 37.2 60 20 103/64 (77) 90 Room Air 12/22/16 20:30 Room Air 12/22/16 19:21 36.6 65 18 132/60 94 12/22/16 19:00 65 18 132/60 94 12/22/16 16:30 69 18 116/63 94 12/22/16 15:25 95 Room Air 12/22/16 14:30 65 20 115/39 95 12/22/16 12:40 36.6 63 20 128/64 96 Laboratory Results 24 Hours: Test 12/22/16 13:34 12/23/16 05:05 White Blood Count 7.28 K/uL 7.34 K/uL Red Blood Count 3.91 M/uL 3.48 M/uL Hemoglobin 12.6 g/dL 11.7 g/dL Hematocrit 40.1 % 36.1 % Mean Corpuscular Volume 102.6 fL 103.7 fL Mean Corpuscular Hemoglobin 32.2 pg 33.6 pg Mean Corpuscular Hemoglobin Concent 31.4 g/dl 32.4 g/dl Platelet Count 179 K/uL 165 K/uL Mean Platelet Volume 10.6 fL 11.1 fL Neutrophils (%) (Auto) 67.4 % 63.6 % Lymphocytes (%) (Auto) 16.5 % 15.7 % Monocytes (%) (Auto) 12.9 % 17.7 % Eosinophils (%) (Auto) 2.6 % 2.3 % Basophils (%) (Auto) 0.5 % 0.4 % Neutrophils # (Auto) 4.90 K/uL 4.67 K/uL Lymphocytes # (Auto) 1.20 K/uL 1.15 K/uL Monocytes # (Auto) 0.94 K/uL 1.30 K/uL Eosinophils # (Auto) 0.19 K/uL 0.17 K/uL Basophils # (Auto) 0.04 K/uL 0.03 K/uL Prothromb Time International Ratio 1.3 1.2 Prothrombin Time 14.0 SECONDS 12.7 SECONDS Assessment contusion bleed anticoag hx xerelto at risk for compartment syndrome but not clinically present yet Plan stict bedrest , ice ,observation,hold all anticoagulants
[2016-12-23] MEDS: ALLOPURINOL 100 MG TAB PO SCH (08:11)
[2016-12-23] MEDS: FUROSEMIDE 20 MG TAB PO SCH (08:12)
[2016-12-23 09:24] VITALS: O2SAT 93
--- NOTE | 2016-12-23 09:24 | Clinical Documentation Query ---
CLINICAL DOCUMENTATION QUERY Dr. PHOENIX, In your clinical opinion is this patient being managed for: (x ) Chronic kidney disease, stage 3 ( ) Other explanation of clinical findings (Please Explain) ( ) Unable to determine (Please Define) ( ) Need to Discuss ( ) Not Agree The medical record reflects the following clinical findings, treatment, and risk factors. Clinical Indicators: 75 yo male presenting with LLE contusion. Noted to have CKD with baseline Cr of 1.3-1.7. Review of GFR showed range of 41.5-53.4 over the past year Treatment: monitor PRP's, treat comorbid conditions Risk Factors: age, A fib, DM, HTN, diastolic CHF Please clarify and document your clinical opinion in the progress notes and discharge summary. Terms such as "probable", "suspected", "likely", "questionable", "possible", or "still to be ruled out" are acceptable. IF IN AGREEMENT, YOU MUST DOCUMENT ABOVE DIAGNOSTIC STATEMENT IN DAILY PROGRESS NOTES AND DISCHARGE SUMMARY. This document is not part of the patient's record. Thank You, Glo Lyn, RN [phone]
[2016-12-23 17:02] VITALS: BP 109/60; PULSE 72; TEMP 36.7; O2SAT 93
[2016-12-23] MEDS ORDERED: POLYETHYLENE (MIRALAX) 17 GM PACK PO ONE (18:45)
[2016-12-23] MEDS: TAMSULOSIN HCL 0.4 MG CAP PO SCH (20:22)
[2016-12-23] MEDS: DULOXETINE (CYMBALTA) 30 MG CAP PO SCH (20:22)
[2016-12-23 23:27] VITALS: BP 110/65; PULSE 74; TEMP 36.9; O2SAT 91
--- NOTE | 2016-12-23 23:34 | Hospitalist Progress Note ---
Hospitalist Progress Note Date of Service Dec 23, 2016. Subjective Pt evaluation today including: conversation w/ patient, conversation w/ family , physical exam Pt states he has a lot of pain in his leg. First he asked me to come back later after he was done eating his dinner. Then, when I did come back he said I could not touch his leg to examine him. He states the pain is better since admission as he is receiving morphine. No CP or SOB, no headache, no N/V, no abd pain All Other Systems: Reviewed and Negative Objective Vital Signs Date Time Temp Pulse Resp B/P (MAP) Pulse Ox O2 Delivery O2 Flow Rate FiO2 12/23/16 20:20 Room Air 12/23/16 17:02 36.7 72 18 109/60 (76) 93 Room Air 12/23/16 09:24 93 Room Air 12/23/16 07:20 36.9 82 16 134/88 (103) 93 Room Air 12/23/16 07:05 Room Air 12/23/16 00:00 Room Air Physical Exam General Appearance: no apparent distress, + obese Eyes: normal inspection, sclerae normal ENT: hearing grossly normal Neck: trachea midline Respiratory/Chest: lungs clear, normal breath sounds, no respiratory distress, no accessory muscle use Cardiovascular: no murmur, + irregularly irregular, + pertinent finding (Left leg and distal lateral thigh with 4+ edema and diffuse purple ecchymosis, 2+ DP pulses bilat, able to move toes bilat, sensation in left foot intact, cap refill normal) Abdomen: normal bowel sounds, non tender, soft (and obese) Extremities: + swelling (as above) Neurologic/Psychiatric: alert Skin: warm/dry, no rash Laboratory Results Last 24 Hours Test 12/23/16 05:05 White Blood Count 7.34 K/uL Red Blood Count 3.48 M/uL Hemoglobin 11.7 g/dL Hematocrit 36.1 % Mean Corpuscular Volume 103.7 fL Mean Corpuscular Hemoglobin 33.6 pg Mean Corpuscular Hemoglobin Concent 32.4 g/dl Platelet Count 165 K/uL Mean Platelet Volume 11.1 fL Neutrophils (%) (Auto) 63.6 % Lymphocytes (%) (Auto) 15.7 % Monocytes (%) (Auto) 17.7 % Eosinophils (%) (Auto) 2.3 % Basophils (%) (Auto) 0.4 % Neutrophils # (Auto) 4.67 K/uL Lymphocytes # (Auto) 1.15 K/uL Monocytes # (Auto) 1.30 K/uL Eosinophils # (Auto) 0.17 K/uL Basophils # (Auto) 0.03 K/uL RDW Standard Deviation 58.0 fL RDW Coefficient of Variation 15.3 % Immature Granulocyte % (Auto) 0.3 % Immature Granulocyte # (Auto) 0.02 K/uL Prothrombin Time 12.7 SECONDS Prothromb Time International Ratio 1.2 Sodium Level 137 mmol/L Potassium Level 3.7 mmol/L Chloride Level 101 mmol/L Carbon Dioxide Level 30 mmol/L Anion Gap 6.0 mmol/L Blood Urea Nitrogen 63 mg/dl Creatinine 1.60 mg/dl Estimated GFR () 48.1 Estimated GFR (Non- 41.5 BUN/Creatinine Ratio 39.2 Random Glucose 118 mg/dl Calcium Level 9.1 mg/dl Magnesium Level 2.3 mg/dl Assessment and Plan This patient is a 75-year-old male with a h/o A-fib on Xarelto, CKD stage III, obesity, chronic diastolic CHF, HTN, Peripheral neuropathy, pancreatic cysts, and spinal stenosis with gait dysfunction, who presents with a mechanical fall and significant ecchymosis, swelling and pain in the left lower extremity. Patient was sent in from the primary care physician for concerns of compartment syndrome. Doppler of the LLE neg for DVT. Previous xrays at outside hospital negative for fractures. Left leg injury/Massive edema,ecchymosis exacerbated by anticoagulation-seen by Ortho and deemed to not have compartment syndrome at this time. -recommend elevation, strict bedrest, cessation of Xarelto, and icing -Appreciate Ortho consultation -Morphine 2 mg every 2 hours as needed for pain HTN, chronic diastolic CHF, History of paroxysmal A. fib-stable, rate controlled -Continue atenolol 25 mg daily -Holding Anticoagulation as noted above due to massive leg swelling and bleeding -Continue Lasix 60 mg daily -Continue metolazone 5 mg Thursday, Thursday, Thursday Chronic kidney disease stage III-creatinine is at baseline at 1.6 -renally dose meds -avoid nephrotoxins DVT prophylaxis -Anticoagulation contraindicated -No TEDs, SCDs to L leg CODE STATUS -LEVEL I FULL CODE
[2016-12-24] MEDS: MoRPHine SULFATE 2 MG/ML CARP IV PRN ×5 (02:59→23:51)
[2016-12-24 06:00] LABS: BASO % 0.4 %; BASO ABS # 0.03 K/uL (0-0.2); COMPLETE YES; EOS % 1.8 %; HEMATOCRIT 35.2 % (42-52); IG% 0.1 %; LYMPH % 16.3 %; LYMPH ABS # 1.24 K/uL (1.2-3.4); MEAN CELL VOLUME 102.9 fL (80-100); MEAN CORPUSCULAR HEMOGLOBIN 33.9 pg (25-34); MEAN PLATELET VOLUME 11.1 fL (7.4-10.4); MONO % 16.5 %; NEUT % 64.9 %; PLATELET COUNT 167 K/uL (130-400); RED BLOOD COUNT 3.42 M/uL (4.7-6.1); WHITE BLOOD COUNT 7.63 K/uL (4.8-10.8)
[2016-12-24 06:39] LABS: BLOOD UREA NITROGEN 71 mg/dl (7-18); BUN/CREATININE RATIO 39.2 (10-20); CALCIUM 8.8 mg/dl (8.5-10.1); CARBON DIOXIDE 29 mmol/L (21-32); CHLORIDE 97 mmol/L (98-107); GLUCOSE 125 mg/dl (70-99); POTASSIUM 3.7 mmol/L (3.5-5.1); SODIUM 133 mmol/L (136-145)
[2016-12-24 07:45] VITALS: BP 134/86; PULSE 73; TEMP 36.7; O2SAT 93
[2016-12-24 08:20] VITALS: O2SAT 93
[2016-12-24] MEDS: METOLAZONE 5 MG TAB PO SCH (08:27)
[2016-12-24] MEDS: ALLOPURINOL 100 MG TAB PO SCH (09:01)
[2016-12-24] MEDS: FUROSEMIDE 20 MG TAB PO SCH (09:04)
[2016-12-24] MEDS: POLYETHYLENE (MIRALAX) 17 GM PACK PO SCH (09:04)
[2016-12-24 15:10] VITALS: BP 111/63; PULSE 65; TEMP 36.5; O2SAT 99
--- NOTE | 2016-12-24 19:15 | Hospitalist Progress Note ---
Hospitalist Progress Note Date of Service Dec 24, 2016. Subjective Pt evaluation today including: conversation w/ patient, conversation w/ family , physical exam Pt still with significant pain in leg, however appears more comfortable today, swelling down slightly in the ankle. Has been resting, icing the leg, and keeping elevated or at level of heart. All Other Systems: Reviewed and Negative Objective Vital Signs Date Time Temp Pulse Resp B/P (MAP) Pulse Ox O2 Delivery O2 Flow Rate FiO2 12/24/16 15:10 36.5 65 18 111/63 (79) 99 Nasal Cannula 2.0 12/24/16 08:20 93 Room Air 12/24/16 07:45 36.7 73 16 134/86 (102) 93 Room Air 12/24/16 07:15 Room Air 12/23/16 23:27 36.9 74 20 110/65 (80) 91 Room Air 12/23/16 23:25 Room Air 12/23/16 20:20 Room Air Physical Exam General Appearance: WD/WN, no apparent distress, + obese Eyes: normal inspection, sclerae normal ENT: hearing grossly normal Neck: trachea midline Respiratory/Chest: lungs clear, normal breath sounds, no respiratory distress, no accessory muscle use Cardiovascular: no murmur, + irregularly irregular (with normal rate) Abdomen: normal bowel sounds, non tender, soft, + hernia (ventral hernia to left of midline scar that is easily reducible) Extremities: + swelling (Left leg with massive edema but is slightly decreased in more distal leg, most pronounced and most TTP in lateral compartment of leg, 2+ DP pulse, able to move toes, sensation intact to lt touch throughout foot) Neurologic/Psychiatric: alert, normal mood/affect, oriented x 3 Skin: + pertinent finding (large amount of purple ecchymosis covering entire left leg and left lateral thigh) Laboratory Results Last 24 Hours Test 12/24/16 05:23 12/24/16 09:06 White Blood Count 7.63 K/uL Red Blood Count 3.42 M/uL Hemoglobin 11.6 g/dL Hematocrit 35.2 % Mean Corpuscular Volume 102.9 fL Mean Corpuscular Hemoglobin 33.9 pg Mean Corpuscular Hemoglobin Concent 33.0 g/dl Platelet Count 167 K/uL Mean Platelet Volume 11.1 fL Neutrophils (%) (Auto) 64.9 % Lymphocytes (%) (Auto) 16.3 % Monocytes (%) (Auto) 16.5 % Eosinophils (%) (Auto) 1.8 % Basophils (%) (Auto) 0.4 % Neutrophils # (Auto) 4.95 K/uL Lymphocytes # (Auto) 1.24 K/uL Monocytes # (Auto) 1.26 K/uL Eosinophils # (Auto) 0.14 K/uL Basophils # (Auto) 0.03 K/uL RDW Standard Deviation 57.0 fL RDW Coefficient of Variation 15.2 % Immature Granulocyte % (Auto) 0.1 % Immature Granulocyte # (Auto) 0.01 K/uL Nucleated RBC Absolute Count (auto) 0.05 K/uL Nucleated Red Blood Cells % 0.6 % Sodium Level 133 mmol/L Potassium Level 3.7 mmol/L Chloride Level 97 mmol/L Carbon Dioxide Level 29 mmol/L Anion Gap 7.0 mmol/L Blood Urea Nitrogen 71 mg/dl Creatinine 1.80 mg/dl Estimated GFR () 41.7 Estimated GFR (Non- 36.0 BUN/Creatinine Ratio 39.2 Random Glucose 125 mg/dl Calcium Level 8.8 mg/dl Vitamin B12 Level 570 pg/mL Folate > 24.00 ng/mL Thyroid Stimulating Hormone (TSH) 2.550 uIu/ml Assessment and Plan This patient is a 75-year-old male with a h/o A-fib on Xarelto, CKD stage III, obesity, chronic diastolic CHF, HTN, Peripheral neuropathy, pancreatic cysts, h/ o colon rupture, and spinal stenosis with gait dysfunction, who presents with a mechanical fall and significant ecchymosis, swelling and pain in the left lower extremity. Patient was sent in from the primary care physician for concerns of compartment syndrome. Doppler of the LLE neg for DVT. Previous xrays at outside hospital negative for fractures. Left leg injury/Massive edema,ecchymosis exacerbated by anticoagulation-seen by Ortho and deemed to not have compartment syndrome at this time. Only minimal improvement currently. -continue elevation, strict bedrest, cessation of Xarelto, and icing -Appreciate Ortho consultation for any further recommendations and limitations -Morphine 2 mg every 2 hours as needed for pain HTN, chronic diastolic CHF, History of paroxysmal A. fib-stable, rate controlled -Continue atenolol 25 mg daily -Holding Anticoagulation as noted above due to massive leg swelling and bleeding -Continue Lasix 60 mg daily -Continue metolazone 5 mg Thursday, Thursday, Thursday Chronic kidney disease stage III-creatinine at baseline at 1.6, today up a bit to 1.8 -renally dose meds -avoid nephrotoxins -follow PRP Macrocytosis, Anemia of acute blood loss-Macrocytosis is chronic off and on since 2009, also with borderline thrombocytopenia, but no leukopenia. Anemia is new just since this injury with bleeding. B12, folate, TSH all normal. He does not drink any EtOH to explain macrocytosis. -discussed with pt and . May benefit from routine Hematology referral as outpt for evaluation for MDS DVT prophylaxis -Anticoagulation contraindicated at this time -No TEDs, SCDs to L leg CODE STATUS -LEVEL I FULL CODE
[2016-12-24] MEDS: TAMSULOSIN HCL 0.4 MG CAP PO SCH (20:58)
[2016-12-24] MEDS: DULOXETINE (CYMBALTA) 30 MG CAP PO SCH (20:58)
[2016-12-24 23:05] VITALS: BP 116/79; PULSE 66; TEMP 36.7; O2SAT 97
--- NOTE | 2016-12-24 23:20 | Progress Note ---
Orthopedic SOAP Note Subjective Date of Service: Dec 24, 2016. Additional Notes: no pain at rest or with active motion Problem List Medical Problems: (1) Edema of left lower extremity Status: Acute (2) On rivaroxaban therapy Status: Acute (3) Pancreatic abnormality Status: Acute (4) Warfarin-induced coagulopathy Status: Acute Objective swollen and ecchymotic left leg.still tense soft tissue anterolateral but no pain with any active motion or resisted strength testing and good ehl and dorsiflexion and eversion without any pain .still very tender over anterior and lateral compartment. Date Time Temp Pulse Resp B/P (MAP) Pulse Ox O2 Delivery O2 Flow Rate FiO2 12/24/16 15:30 Nasal Cannula 2.0 12/24/16 15:10 36.5 65 18 111/63 (79) 99 Nasal Cannula 2.0 12/24/16 08:20 93 Room Air 12/24/16 07:45 36.7 73 16 134/86 (102) 93 Room Air 12/24/16 07:15 Room Air 12/23/16 23:27 36.9 74 20 110/65 (80) 91 Room Air 12/23/16 23:25 Room Air Laboratory Results 24 Hours: Test 12/24/16 05:23 White Blood Count 7.63 K/uL Red Blood Count 3.42 M/uL Hemoglobin 11.6 g/dL Hematocrit 35.2 % Mean Corpuscular Volume 102.9 fL Mean Corpuscular Hemoglobin 33.9 pg Mean Corpuscular Hemoglobin Concent 33.0 g/dl Platelet Count 167 K/uL Mean Platelet Volume 11.1 fL Neutrophils (%) (Auto) 64.9 % Lymphocytes (%) (Auto) 16.3 % Monocytes (%) (Auto) 16.5 % Eosinophils (%) (Auto) 1.8 % Basophils (%) (Auto) 0.4 % Neutrophils # (Auto) 4.95 K/uL Lymphocytes # (Auto) 1.24 K/uL Monocytes # (Auto) 1.26 K/uL Eosinophils # (Auto) 0.14 K/uL Basophils # (Auto) 0.03 K/uL Assessment contusion bleed anticoag hx xerelto at risk for compartment syndrome but not clinically present yet Plan stict bedrest , ice ,observation,hold all anticoagulants
[2016-12-25 00:30] VITALS: O2SAT 83
[2016-12-25 00:35] VITALS: O2SAT 96
[2016-12-25 06:23] LABS: BASO % 0.6 %; BASO ABS # 0.05 K/uL (0-0.2); COMPLETE YES; EOS % 3.4 %; HEMATOCRIT 33.7 % (42-52); IG% 0.3 %; LYMPH % 10.8 %; LYMPH ABS # 0.84 K/uL (1.2-3.4); MEAN CELL VOLUME 102.4 fL (80-100); MEAN CORPUSCULAR HEMOGLOBIN 34.3 pg (25-34); MEAN CORPUSCULAR HGB CONC 33.5 g/dl (32-36); MEAN PLATELET VOLUME 10.7 fL (7.4-10.4); MONO % 13.1 %; NEUT % 71.8 %; PLATELET COUNT 173 K/uL (130-400); RED BLOOD COUNT 3.29 M/uL (4.7-6.1); WHITE BLOOD COUNT 7.76 K/uL (4.8-10.8)
[2016-12-25 07:45] VITALS: BP 117/73; PULSE 68; TEMP 36.4; O2SAT 98
--- NOTE | 2016-12-25 08:05 | Orthopedic Progress Note ---
Orthopedic Progress Note Date of Service Dec 25, 2016. Subjective Reports: feeling well, calf pain, Denies: chest pain, SOB, nausea / vomiting, pain controlled w PO medications Objective N/V intact, capillary refill less than 2 sec., A&O x3, toes mobile No pain with AROM and PROM of ankle and toes, good strength at ankle with no pain. Wrinkling noted ant LE indicated poss decrease in swelling, fish tender laterally. Date Time Temp Pulse Resp B/P (MAP) Pulse Ox O2 Delivery O2 Flow Rate FiO2 12/25/16 00:35 96 Nasal Cannula 2.0 12/25/16 00:30 83 Room Air 12/24/16 23:30 Nasal Cannula 2.0 12/24/16 23:05 36.7 66 20 116/79 (91) 97 Nasal Cannula 2.0 12/24/16 15:30 Nasal Cannula 2.0 12/24/16 15:10 36.5 65 18 111/63 (79) 99 Nasal Cannula 2.0 12/24/16 08:20 93 Room Air Laboratory Results 24 Hours: Test 12/25/16 05:30 White Blood Count 7.76 K/uL Red Blood Count 3.29 M/uL Hemoglobin 11.3 g/dL Hematocrit 33.7 % Mean Corpuscular Volume 102.4 fL Mean Corpuscular Hemoglobin 34.3 pg Mean Corpuscular Hemoglobin Concent 33.5 g/dl Platelet Count 173 K/uL Mean Platelet Volume 10.7 fL Neutrophils (%) (Auto) 71.8 % Lymphocytes (%) (Auto) 10.8 % Monocytes (%) (Auto) 13.1 % Eosinophils (%) (Auto) 3.4 % Basophils (%) (Auto) 0.6 % Neutrophils # (Auto) 5.57 K/uL Lymphocytes # (Auto) 0.84 K/uL Monocytes # (Auto) 1.02 K/uL Eosinophils # (Auto) 0.26 K/uL Basophils # (Auto) 0.05 K/uL Assessment & Plan Assessment: contusion bleed anticoag hx xerelto at risk for compartment syndrome but not clinically present yet Plan: strict bedrest , ice ,observation,hold all anticoagulants poss get OOB tomorrow after re eval., continue elevation today.
[2016-12-25] MEDS: FUROSEMIDE 20 MG TAB PO SCH (08:49)
[2016-12-25] MEDS: ALLOPURINOL 100 MG TAB PO SCH (08:49)
[2016-12-25] MEDS: POLYETHYLENE (MIRALAX) 17 GM PACK PO SCH (08:49)
[2016-12-25] MEDS: MoRPHine SULFATE 2 MG/ML CARP IV PRN ×3 (12:03→21:05)
[2016-12-25 15:00] VITALS: BP 136/80; PULSE 64; TEMP 36.8; O2SAT 99
--- NOTE | 2016-12-25 16:38 | Hospitalist Progress Note ---
Hospitalist Progress Note Date of Service Dec 25, 2016. Subjective Pt evaluation today including: conversation w/ patient, physical exam, chart review (reviewed outpatient record extensively today), lab review pain slightly improved from yesterday, swelling down in leg. Tried to have a BM today but couldn't. Requiring some O2 off and on but denies SOB, denies CP All Other Systems: Reviewed and Negative Objective Vital Signs Date Time Temp Pulse Resp B/P (MAP) Pulse Ox O2 Delivery O2 Flow Rate FiO2 12/25/16 15:00 36.8 64 18 136/80 (98) 99 Nasal Cannula 2.0 12/25/16 07:45 36.4 68 20 117/73 (88) 98 Nasal Cannula 1.5 12/25/16 07:30 Nasal Cannula 2.0 12/25/16 00:35 96 Nasal Cannula 2.0 12/25/16 00:30 83 Room Air 12/24/16 23:30 Nasal Cannula 2.0 12/24/16 23:05 36.7 66 20 116/79 (91) 97 Nasal Cannula 2.0 Physical Exam General Appearance: no apparent distress, + obese Eyes: normal inspection, sclerae normal ENT: + pertinent finding (VIEJAS) Neck: trachea midline Respiratory/Chest: lungs clear, normal breath sounds, no respiratory distress, no accessory muscle use Cardiovascular: + irregularly irregular (with normal rate), + pertinent finding (left leg with significant edema but is slightly decreased from yesterday, less tense in anterolateral leg and less tender on lateral leg) Abdomen: normal bowel sounds, non tender, soft, + hernia (reducible ventral hernia) Extremities: + pertinent finding (as above; able to move left toes and dorsiflex and plantarflex ankle without any pain in leg, 2+ DP pulses bilat) Neurologic/Psychiatric: alert Skin: warm/dry, + pertinent finding (entire left leg and left lateral distal thigh with purple ecchymosis) Laboratory Results Last 24 Hours Test 12/25/16 05:30 White Blood Count 7.76 K/uL Red Blood Count 3.29 M/uL Hemoglobin 11.3 g/dL Hematocrit 33.7 % Mean Corpuscular Volume 102.4 fL Mean Corpuscular Hemoglobin 34.3 pg Mean Corpuscular Hemoglobin Concent 33.5 g/dl Platelet Count 173 K/uL Mean Platelet Volume 10.7 fL Neutrophils (%) (Auto) 71.8 % Lymphocytes (%) (Auto) 10.8 % Monocytes (%) (Auto) 13.1 % Eosinophils (%) (Auto) 3.4 % Basophils (%) (Auto) 0.6 % Neutrophils # (Auto) 5.57 K/uL Lymphocytes # (Auto) 0.84 K/uL Monocytes # (Auto) 1.02 K/uL Eosinophils # (Auto) 0.26 K/uL Basophils # (Auto) 0.05 K/uL RDW Standard Deviation 55.1 fL RDW Coefficient of Variation 14.8 % Immature Granulocyte % (Auto) 0.3 % Immature Granulocyte # (Auto) 0.02 K/uL Nucleated RBC Absolute Count (auto) 0.02 K/uL Nucleated Red Blood Cells % 0.3 % Assessment and Plan This patient is a 75-year-old male with a h/o chronic A-fib on Xarelto, CKD stage III, obesity, chronic diastolic CHF, pulmonary HTN, HTN, Peripheral neuropathy, IPMNs, h/o colon rupture, and spinal stenosis with gait dysfunction , who presents with a mechanical fall and significant ecchymosis, swelling and pain in the left lower extremity. Patient was sent in from the primary care physician for concerns of compartment syndrome. Doppler of the LLE neg for DVT. Previous xrays at outside hospital negative for fractures. Left leg injury/Massive edema,ecchymosis exacerbated by anticoagulation-seen by Ortho and deemed to not have compartment syndrome at this time. Making steady improvement each day with less edema, less pain -continue elevation, strict bedrest, cessation of Xarelto, and icing -Ortho says maybe able to get out of bed tomorrow -Appreciate Ortho consultation for any further recommendations and limitations -Morphine 2 mg every 2 hours as needed for pain -will need PT eval to see if needs SNF after discharge -SCD ordered to rt leg only for DVT proph HTN, chronic diastolic CHF, chronic A. 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 Anemia is new just since this injury with bleeding. B12, folate, TSH all normal. He does not drink any EtOH to explain macrocytosis. -discussed with pt and . May benefit from routine Hematology referral as outpt for evaluation for MDS Constipation-acute on chronic-added docusate bid, senna qhs, continue daily Miralax DVT prophylaxis -Anticoagulation contraindicated at this time -No TEDs, SCDs to L leg but ordered SCD for right leg today CODE STATUS -LEVEL I FULL CODE
[2016-12-25] MEDS: TAMSULOSIN HCL 0.4 MG CAP PO SCH (21:05)
[2016-12-25] MEDS: DOCUSATE SODIUM 100 MG CAP PO SCH (21:06)
[2016-12-25] MEDS: DULOXETINE (CYMBALTA) 30 MG CAP PO SCH (21:06)
[2016-12-25] MEDS: SENNA 8.6 MG TAB PO SCH (21:07)
[2016-12-25 23:00] VITALS: BP 112/66; PULSE 59; TEMP 37; O2SAT 96
[2016-12-26 06:01] LABS: BASO % 0.1 %; BASO ABS # 0.01 K/uL (0-0.2); COMPLETE YES; EOS % 2.8 %; HEMATOCRIT 35.1 % (42-52); IG% 0.3 %; LYMPH % 9.2 %; MEAN CORPUSCULAR HEMOGLOBIN 32.6 pg (25-34); MEAN CORPUSCULAR HGB CONC 31.9 g/dl (32-36); MEAN PLATELET VOLUME 10.4 fL (7.4-10.4); MONO % 12.1 %; NEUT % 75.5 %; PLATELET COUNT 194 K/uL (130-400); RED BLOOD COUNT 3.44 M/uL (4.7-6.1); WHITE BLOOD COUNT 7.58 K/uL (4.8-10.8)
[2016-12-26 06:56] LABS: BLOOD UREA NITROGEN 60 mg/dl (7-18); BUN/CREATININE RATIO 42.5 (10-20); CALCIUM 8.8 mg/dl (8.5-10.1); CARBON DIOXIDE 34 mmol/L (21-32); CHLORIDE 93 mmol/L (98-107); GLUCOSE 114 mg/dl (70-99); MAGNESIUM 2.5 mg/dl (1.8-2.4); POTASSIUM 2.5 mmol/L (3.5-5.1); SODIUM 136 mmol/L (136-145)
[2016-12-26] MEDS ORDERED: NURSING VERBAL MED ORDER ONE (07:00)
[2016-12-26 07:15] VITALS: BP 113/70; PULSE 63; TEMP 36.8; O2SAT 92
[2016-12-26] MEDS ORDERED: POTASSIUM CHLORIDE 20 MEQ TABCR PO ONE (07:30)
[2016-12-26] MEDS: METOLAZONE 5 MG TAB PO SCH (08:12)
[2016-12-26] MEDS: DOCUSATE SODIUM 100 MG CAP PO SCH ×2 (08:13→21:38)
[2016-12-26] MEDS: ALLOPURINOL 100 MG TAB PO SCH (08:13)
[2016-12-26] MEDS: POLYETHYLENE (MIRALAX) 17 GM PACK PO SCH (08:15)
--- NOTE | 2016-12-26 08:23 | Orthopedic Progress Note ---
Orthopedic Progress Note Date of Service Dec 26, 2016. Subjective Reports: pain controlled w PO medications, Denies: chest pain, SOB, nausea / vomiting, light headedness, calf pain Additional Notes: states left LE pain is getting better. Objective N/V intact, capillary refill less than 2 sec., A&O x3, toes mobile PROM and AROM of toes and ankle continue to be pain free, pulses good, less tender lateral compartment today, no sign of compartment syndrome, improving. Date Time Temp Pulse Resp B/P (MAP) Pulse Ox O2 Delivery O2 Flow Rate FiO2 12/26/16 07:15 36.8 63 20 113/70 (84) 92 Nasal Cannula 1.0 12/26/16 07:15 Nasal Cannula 3.0 12/25/16 23:00 37.0 59 20 112/66 (81) 96 Room Air 12/25/16 19:10 Nasal Cannula 2.0 12/25/16 16:00 Nasal Cannula 2.0 12/25/16 15:00 36.8 64 18 136/80 (98) 99 Nasal Cannula 2.0 Laboratory Results 24 Hours: Test 12/26/16 05:10 White Blood Count 7.58 K/uL Red Blood Count 3.44 M/uL Hemoglobin 11.2 g/dL Hematocrit 35.1 % Mean Corpuscular Volume 102.0 fL Mean Corpuscular Hemoglobin 32.6 pg Mean Corpuscular Hemoglobin Concent 31.9 g/dl Platelet Count 194 K/uL Mean Platelet Volume 10.4 fL Neutrophils (%) (Auto) 75.5 % Lymphocytes (%) (Auto) 9.2 % Monocytes (%) (Auto) 12.1 % Eosinophils (%) (Auto) 2.8 % Basophils (%) (Auto) 0.1 % Neutrophils # (Auto) 5.72 K/uL Lymphocytes # (Auto) 0.70 K/uL Monocytes # (Auto) 0.92 K/uL Eosinophils # (Auto) 0.21 K/uL Basophils # (Auto) 0.01 K/uL Assessment & Plan Assessment: contusion bleed anticoag hx xerelto compartment syndrome not clinically present and improving Plan: start ambulating, ice,observation,hold all anticoagulants. continue elevation today. No signs of compartment syndrome, ortho will sign off, thank you.
--- NOTE | 2016-12-26 08:25 | Consultant Recommendations ---
Community Relations Assistant Recommendations Date of Service Dec 26, 2016. Community Relations Assistant Recommendations Continue observation, no clinical signs of compartment syndrome or surgical indication Left LE. Ice, elevation and medical input. Follow with 2-3 weeks, call [phone] for appt.
[2016-12-26] MEDS: POTASSIUM CHLR 10 MEQ / WTR 10 MEQ in PREMIXED WATER 100 ML IV SCH ×4 (08:38→12:32)
[2016-12-26] MEDS: FUROSEMIDE 20 MG TAB PO SCH (08:41)
[2016-12-26 09:04] VITALS: BP 115/59; O2SAT 92
[2016-12-26] MEDS: MoRPHine SULFATE 2 MG/ML CARP IV PRN ×2 (11:20→23:20)
[2016-12-26 15:05] VITALS: BP 104/67; PULSE 55; TEMP 36.4; O2SAT 99
[2016-12-26] MEDS ORDERED: ALBUTEROL 0.083% NEBU SOLN 3 ML VIAL INH ONE (18:08)
[2016-12-26] MEDS ORDERED: ALBUTEROL 0.083% NEBU SOLN 3 ML VIAL INH PRN (18:15)
--- NOTE | 2016-12-26 18:18 | Hospitalist Progress Note ---
Hospitalist Progress Note Date of Service Dec 26, 2016. Subjective Pt evaluation today including: conversation w/ patient Leg less painful and less swollen todya. Ortho cleared him to get out of bed and he sat in chair x 2 hours. No other problems All Other Systems: Reviewed and Negative Objective Vital Signs Date Time Temp Pulse Resp B/P (MAP) Pulse Ox O2 Delivery O2 Flow Rate FiO2 12/26/16 15:50 Room Air 12/26/16 15:05 36.4 55 18 104/67 (79) 99 Nasal Cannula 1.0 12/26/16 09:04 92 12/26/16 07:15 36.8 63 20 113/70 (84) 92 Nasal Cannula 1.0 12/26/16 07:15 Nasal Cannula 3.0 12/25/16 23:00 37.0 59 20 112/66 (81) 96 Room Air 12/25/16 19:10 Nasal Cannula 2.0 Physical Exam General Appearance: no apparent distress, + obese Eyes: normal inspection, sclerae normal ENT: + pertinent finding (PLATINUM) Neck: trachea midline Respiratory/Chest: no respiratory distress, no accessory muscle use, + wheezing (exp diffusely and faint, air movement decreased throughout; NC in place) Cardiovascular: no murmur, + irregularly irregular (with normal rate) Abdomen: normal bowel sounds, non tender, soft Extremities: + swelling (3+ edema left leg with diffuse purple ecchymosis which is slightly improved, still very tender over lateral left leg but softer than previous, able to dorsi and plantarflex the left ankle without pain, able to flex left knee to 30 degrees) Neurologic/Psychiatric: alert, normal mood/affect, oriented x 3 Skin: warm/dry, no rash Laboratory Results Last 24 Hours Test 12/26/16 05:10 12/26/16 07:16 White Blood Count 7.58 K/uL Red Blood Count 3.44 M/uL Hemoglobin 11.2 g/dL Hematocrit 35.1 % Mean Corpuscular Volume 102.0 fL Mean Corpuscular Hemoglobin 32.6 pg Mean Corpuscular Hemoglobin Concent 31.9 g/dl Platelet Count 194 K/uL Mean Platelet Volume 10.4 fL Neutrophils (%) (Auto) 75.5 % Lymphocytes (%) (Auto) 9.2 % Monocytes (%) (Auto) 12.1 % Eosinophils (%) (Auto) 2.8 % Basophils (%) (Auto) 0.1 % Neutrophils # (Auto) 5.72 K/uL Lymphocytes # (Auto) 0.70 K/uL Monocytes # (Auto) 0.92 K/uL Eosinophils # (Auto) 0.21 K/uL Basophils # (Auto) 0.01 K/uL RDW Standard Deviation 54.4 fL RDW Coefficient of Variation 14.8 % Immature Granulocyte % (Auto) 0.3 % Immature Granulocyte # (Auto) 0.02 K/uL Nucleated RBC Absolute Count (auto) 0.03 K/uL Nucleated Red Blood Cells % 0.3 % Sodium Level 136 mmol/L Potassium Level 2.5 mmol/L 2.6 mmol/L Chloride Level 93 mmol/L Carbon Dioxide Level 34 mmol/L Anion Gap 9.0 mmol/L Blood Urea Nitrogen 60 mg/dl Creatinine 1.40 mg/dl Estimated GFR () 56.6 Estimated GFR (Non- 48.8 BUN/Creatinine Ratio 42.5 Random Glucose 114 mg/dl Calcium Level 8.8 mg/dl Magnesium Level 2.5 mg/dl Assessment and Plan This patient is a 75-year-old male with a h/o chronic A-fib on Xarelto, CKD stage III, obesity, chronic diastolic CHF, pulmonary HTN, HTN, Peripheral neuropathy, IPMNs, h/o colon rupture, and spinal stenosis with gait dysfunction , who presents with a mechanical fall and significant ecchymosis, swelling and pain in the left lower extremity. Patient was sent in from the primary care physician for concerns of compartment syndrome. Doppler of the LLE neg for DVT. Previous xrays at outside hospital negative for fractures. Left leg injury/Massive edema,ecchymosis exacerbated by anticoagulation-seen by Ortho and deemed to not have compartment syndrome at this time. Improved from previous -continue elevation, was on bedrest but now allowed to ambulate as per Ortho, continue to hold Xarelto, and continue icing -Ortho consult appreciated and they have now signed off -Appreciate Ortho consultation for any further recommendations and limitations -continue Morphine 2 mg every 2 hours as needed for pain -PT can now evaluate tomorrow and will likely need SNF -SCD ordered to rt leg only for DVT proph HTN, chronic diastolic CHF, chronic A. fib-stable, rate controlled, Pulm HTN, Cor pulmonale--> no current issues -Continue atenolol 25 mg daily -Holding Anticoagulation as noted above due to massive leg swelling and bleeding -Continue Lasix 60 mg daily -Continue metolazone 5 mg Thursday, Thursday, Thursday -replace KCl Hypokalemia-severe, K+ 2.5, on diuretics and was not on home KCl -replaced IV/po today and restart home dose KCl po Chronic kidney disease stage III-creatinine at baseline at 1.6, was up to 1.8, now down to 1.4 -renally dose meds -avoid nephrotoxins -follow PRP tomorrow Wheezing, acute respiratory insufficiency-requiring 2LNC, with wheezing on exam. Has a h/o requiring Symbicort, may have some component of reactive airway disease. -albuterol nebs ordered -supplemental O2 and wean as tolerated -add IS Macrocytosis, Anemia of acute blood loss-Macrocytosis is chronic off and on since 2009, also with borderline thrombocytopenia, but no leukopenia. Anemia is new just since this injury with bleeding. B12, folate, TSH all normal. He does not drink any EtOH to explain macrocytosis. -discussed with pt and . May benefit from routine Hematology referral as outpt for evaluation for MDS Constipation-acute on chronic-added docusate bid, senna qhs, continue daily Miralax and now moving bowels DVT prophylaxis -Anticoagulation contraindicated at this time -No TEDs, SCDs to L leg but ordered SCD for right leg CODE STATUS -LEVEL I FULL CODE Dispo-to likely SNF in 1-2 days
[2016-12-26] MEDS: TAMSULOSIN HCL 0.4 MG CAP PO SCH (21:38)
[2016-12-26] MEDS: SENNA 8.6 MG TAB PO SCH (21:38)
[2016-12-26] MEDS: DULOXETINE (CYMBALTA) 30 MG CAP PO SCH (21:39)
[2016-12-26] MEDS: POTASSIUM CHLORIDE 10 MEQ TABCR PO SCH (21:39)
[2016-12-26 23:05] VITALS: BP 117/62; PULSE 61; TEMP 36.7; O2SAT 96
[2016-12-27 07:02] LABS: BLOOD UREA NITROGEN 52 mg/dl (7-18); BUN/CREATININE RATIO 47.2 (10-20); CALCIUM 8.8 mg/dl (8.5-10.1); CARBON DIOXIDE 37 mmol/L (21-32); CHLORIDE 94 mmol/L (98-107); GLUCOSE 121 mg/dl (70-99); MAGNESIUM 2.5 mg/dl (1.8-2.4); POTASSIUM 2.8 mmol/L (3.5-5.1); SODIUM 137 mmol/L (136-145)
[2016-12-27 07:35] VITALS: BP 126/64; PULSE 62; TEMP 36.6; O2SAT 98
[2016-12-27] MEDS: DOCUSATE SODIUM 100 MG CAP PO SCH ×2 (08:43→21:19)
[2016-12-27] MEDS: POTASSIUM CHLORIDE 10 MEQ TABCR PO SCH ×3 (08:44→21:20)
[2016-12-27] MEDS: ALLOPURINOL 100 MG TAB PO SCH (08:45)
[2016-12-27] MEDS: POLYETHYLENE (MIRALAX) 17 GM PACK PO SCH (08:46)
[2016-12-27] MEDS: FUROSEMIDE 20 MG TAB PO SCH (08:46)
[2016-12-27] MEDS: POTASSIUM CHLR 10 MEQ / WTR 10 MEQ in PREMIXED WATER 100 ML IV SCH ×4 (11:12→15:57)
[2016-12-27] MEDS: MoRPHine SULFATE 2 MG/ML CARP IV PRN ×2 (11:12→19:42)
[2016-12-27 15:30] VITALS: BP 124/70; PULSE 76; TEMP 36.6; O2SAT 93
[2016-12-27 20:05] VITALS: PULSE 84; O2SAT 92
--- NOTE | 2016-12-27 20:08 | Hospitalist Progress Note ---
Hospitalist Progress Note Date of Service Dec 27, 2016. Subjective Pt evaluation today including: conversation w/ patient, conversation w/ family Pain a little better today. Was OOB to chair for 4 hours today and then walked around the room with his walker. Was painful. All Other Systems: Reviewed and Negative Objective Vital Signs Date Time Temp Pulse Resp B/P (MAP) Pulse Ox O2 Delivery O2 Flow Rate FiO2 12/27/16 16:00 Room Air 12/27/16 15:30 36.6 76 18 124/70 (88) 93 Room Air 12/27/16 10:52 Room Air 12/27/16 07:35 36.6 62 18 126/64 (84) 98 Nasal Cannula 2.0 12/27/16 00:19 Nasal Cannula 1.0 12/26/16 23:05 36.7 61 18 117/62 (80) 96 Nasal Cannula 2.0 Physical Exam General Appearance: no apparent distress, + obese Eyes: normal inspection, sclerae normal ENT: + pertinent finding ([place]) Neck: trachea midline Respiratory/Chest: no respiratory distress, no accessory muscle use, + wheezing (diffusely insp and exp) Cardiovascular: no murmur, + irregularly irregular (with normal rate), + pertinent finding (left leg with 3+ edema, +TTP over lateral leg but softer and less tender today, purple ecchymosis entire left leg) Abdomen: normal bowel sounds, non tender, soft Extremities: + pertinent finding (able to dorsi and plantarflex left ankle and foot without pain, 2+ DP pulse on left) Neurologic/Psychiatric: alert Skin: warm/dry Laboratory Results Last 24 Hours Test 12/27/16 05:30 Sodium Level 137 mmol/L Potassium Level 2.8 mmol/L Chloride Level 94 mmol/L Carbon Dioxide Level 37 mmol/L Anion Gap 6.0 mmol/L Blood Urea Nitrogen 52 mg/dl Creatinine 1.10 mg/dl Estimated GFR () 75.7 Estimated GFR (Non- 65.3 BUN/Creatinine Ratio 47.2 Random Glucose 121 mg/dl Calcium Level 8.8 mg/dl Magnesium Level 2.5 mg/dl Assessment and Plan This patient is a 75-year-old male with a h/o chronic A-fib on Xarelto, CKD stage III, obesity, chronic diastolic CHF, pulmonary HTN, HTN, Peripheral neuropathy, IPMNs, h/o colon rupture, and spinal stenosis with gait dysfunction , who presents with a mechanical fall and significant ecchymosis, swelling and pain in the left lower extremity. Patient was sent in from the primary care physician for concerns of compartment syndrome. Doppler of the LLE neg for DVT. Previous xrays at outside hospital negative for fractures. Left leg injury/Massive edema,ecchymosis exacerbated by anticoagulation-seen by Ortho and deemed to not have compartment syndrome at this time. Improved from previous and now out of bed and ambulated today, making progress -continue elevation and ice when in bed -ambulate with PT -continue to hold Xarelto -Ortho consult appreciated and they have now signed off -continue Morphine 2 mg every 2 hours as needed for pain but try to switch to po pain meds percocet ordered -PT eval as will need SNF -SCD ordered to rt leg only for DVT proph HTN, chronic diastolic CHF, chronic A. fib-stable, rate controlled, Pulm HTN, Cor pulmonale--> no current issues except mild resp insufficiency and some wheezing -Continue atenolol 25 mg daily -Holding Anticoagulation as noted above due to massive leg swelling and bleeding -consider restarting in 1 week -Continue Lasix 60 mg daily -Continue metolazone 5 mg Thursday, Thursday, Thursday Hypokalemia-severe, K+ 2.5, on diuretics and was not on home KCl -replaced KCl again today -repeat K+ this evening Chronic kidney disease stage III-creatinine at baseline at 1.6, was up to 1.8, now down to 1.1 -renally dose meds -avoid nephrotoxins -follow PRP tomorrow Wheezing, acute respiratory insufficiency-requiring 2LNC, with wheezing on exam. 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 Anemia is new just since this injury with bleeding. B12, folate, TSH all normal. He does not drink any EtOH to explain macrocytosis. -discussed with pt and . May benefit from routine Hematology referral as outpt for evaluation for MDS Constipation-acute on chronic-added docusate bid, senna qhs, continue daily Miralax and now moving bowels DVT prophylaxis -Anticoagulation contraindicated at this time -No TEDs, SCDs to L leg but ordered SCD for right leg CODE STATUS -LEVEL I FULL CODE Dispo-to likely SNF in 1-2 days
[2016-12-27] MEDS: ALBUTEROL 0.083% NEBU SOLN 3 ML VIAL INH SCH (21:01)
[2016-12-27] MEDS: SENNA 8.6 MG TAB PO SCH (21:19)
[2016-12-27] MEDS: DULOXETINE (CYMBALTA) 30 MG CAP PO SCH (21:19)
[2016-12-27] MEDS: TAMSULOSIN HCL 0.4 MG CAP PO SCH (21:20)
[2016-12-27] MEDS: OXYCODONE/ACETAMINOPHEN 5-325 TAB PO PRN (21:22)
[2016-12-27 22:55] VITALS: BP 109/64; PULSE 69; TEMP 36.5; O2SAT 87
[2016-12-27 22:59] VITALS: O2SAT 95
[2016-12-28] VITALS (8 sets, daily range): BP systolic 101–121; BP diastolic 50–71; PULSE 61–86; TEMP 36.5; O2SAT 92–98
[2016-12-28] MEDS: POTASSIUM CHLR 10 MEQ / WTR 10 MEQ in PREMIXED WATER 100 ML IV SCH ×8 (00:16→17:59)
[2016-12-28] MEDS: ALBUTEROL 0.083% NEBU SOLN 3 ML VIAL INH SCH ×4 (02:45→19:48)
[2016-12-28 06:25] LABS: BASO % 0.7 %; BASO ABS # 0.04 K/uL (0-0.2); COMPLETE YES; EOS % 6.8 %; IG% 0.2 %; LYMPH % 18.7 %; LYMPH ABS # 1.05 K/uL (1.2-3.4); MEAN CELL VOLUME 102.8 fL (80-100); MEAN CORPUSCULAR HEMOGLOBIN 33.3 pg (25-34); MEAN CORPUSCULAR HGB CONC 32.4 g/dl (32-36); MEAN PLATELET VOLUME 10.4 fL (7.4-10.4); MONO % 11.9 %; NEUT % 61.7 %; PLATELET COUNT 205 K/uL (130-400); RED BLOOD COUNT 3.21 M/uL (4.7-6.1); WHITE BLOOD COUNT 5.61 K/uL (4.8-10.8)
[2016-12-28 07:02] LABS: BLOOD UREA NITROGEN 52 mg/dl (7-18); BUN/CREATININE RATIO 42.9 (10-20); CALCIUM 8.6 mg/dl (8.5-10.1); CARBON DIOXIDE 34 mmol/L (21-32); CHLORIDE 96 mmol/L (98-107); GLUCOSE 114 mg/dl (70-99); MAGNESIUM 2.6 mg/dl (1.8-2.4); POTASSIUM 3.2 mmol/L (3.5-5.1); SODIUM 136 mmol/L (136-145)
[2016-12-28] MEDS: ALLOPURINOL 100 MG TAB PO SCH (09:28)
[2016-12-28] MEDS: DOCUSATE SODIUM 100 MG CAP PO SCH ×2 (09:29→21:16)
[2016-12-28] MEDS: FUROSEMIDE 20 MG TAB PO SCH (09:29)
[2016-12-28] MEDS: POTASSIUM CHLORIDE 10 MEQ TABCR PO SCH ×3 (09:29→21:17)
[2016-12-28] MEDS: POLYETHYLENE (MIRALAX) 17 GM PACK PO SCH (09:30)
[2016-12-28] MEDS: OXYCODONE/ACETAMINOPHEN 5-325 TAB PO PRN ×2 (09:34→12:52)
--- NOTE | 2016-12-28 10:25 | Hospitalist Progress Note ---
Hospitalist Progress Note Date of Service Dec 28, 2016. Subjective Pt evaluation today including: conversation w/ patient Voiding: no voiding problems OOB to chair and ambulated to m[place]ox and back today, still with severe pain, swelling. Says "I'm in no cobb to get out of here." Also with nasal congestion. Breathing is better, off O2 now, K+ still low. Today is his birthday All Other Systems: Reviewed and Negative Objective Vital Signs Date Time Temp Pulse Resp B/P (MAP) Pulse Ox O2 Delivery O2 Flow Rate FiO2 12/28/16 07:30 75 18 98 Nasal Cannula 2.0 12/28/16 07:18 36.5 67 18 116/65 (82) 96 Nasal Cannula 2.0 12/28/16 02:45 86 18 97 Nasal Cannula 2.0 12/27/16 22:59 95 Nasal Cannula 2.0 12/27/16 22:55 36.5 69 16 109/64 (79) 87 Room Air 12/27/16 20:05 84 18 92 Room Air 12/27/16 19:30 Room Air 12/27/16 16:00 Room Air 12/27/16 15:30 36.6 76 18 124/70 (88) 93 Room Air 12/27/16 10:52 Room Air Physical Exam General Appearance: no apparent distress, + obese Eyes: normal inspection, sclerae normal Neck: trachea midline Respiratory/Chest: no respiratory distress, no accessory muscle use, + wheezing (faint but much improved from yesterday, better air movement throughout today) Cardiovascular: no murmur, + irregularly irregular (with normal rate) Abdomen: normal bowel sounds, non tender, soft (and obese) Extremities: + swelling (left leg maybe slightly less edema but not much changed, still tense and tender lateral compartment but can dorsi and plantarflex ankle, 2+ DP pulse, sensation intact, diffuse purple ecchymosis, calf tense) Neurologic/Psychiatric: alert, normal mood/affect, oriented x 3 Skin: no rash Laboratory Results Last 24 Hours Test 12/27/16 20:20 12/28/16 05:08 Potassium Level 3.0 mmol/L 3.2 mmol/L White Blood Count 5.61 K/uL Red Blood Count 3.21 M/uL Hemoglobin 10.7 g/dL Hematocrit 33.0 % Mean Corpuscular Volume 102.8 fL Mean Corpuscular Hemoglobin 33.3 pg Mean Corpuscular Hemoglobin Concent 32.4 g/dl Platelet Count 205 K/uL Mean Platelet Volume 10.4 fL Neutrophils (%) (Auto) 61.7 % Lymphocytes (%) (Auto) 18.7 % Monocytes (%) (Auto) 11.9 % Eosinophils (%) (Auto) 6.8 % Basophils (%) (Auto) 0.7 % Neutrophils # (Auto) 3.46 K/uL Lymphocytes # (Auto) 1.05 K/uL Monocytes # (Auto) 0.67 K/uL Eosinophils # (Auto) 0.38 K/uL Basophils # (Auto) 0.04 K/uL RDW Standard Deviation 56.3 fL RDW Coefficient of Variation 14.9 % Immature Granulocyte % (Auto) 0.2 % Immature Granulocyte # (Auto) 0.01 K/uL Sodium Level 136 mmol/L Chloride Level 96 mmol/L Carbon Dioxide Level 34 mmol/L Anion Gap 6.0 mmol/L Blood Urea Nitrogen 52 mg/dl Creatinine 1.20 mg/dl Estimated GFR () 67.7 Estimated GFR (Non- 58.4 BUN/Creatinine Ratio 42.9 Random Glucose 114 mg/dl Calcium Level 8.6 mg/dl Magnesium Level 2.6 mg/dl Assessment and Plan This patient is a 75-year-old male with a h/o chronic A-fib on Xarelto, CKD stage III, obesity, chronic diastolic CHF, pulmonary HTN, HTN, Peripheral neuropathy, IPMNs, h/o colon rupture, and spinal stenosis with gait dysfunction , who presents with a mechanical fall and significant ecchymosis, swelling and pain in the left lower extremity. Patient was sent in from the primary care physician for concerns of compartment syndrome. Doppler of the LLE neg for DVT. Previous xrays at outside hospital negative for fractures. Has an IVC filter in place. Left leg injury/Massive edema,ecchymosis exacerbated by anticoagulation-seen by Ortho and deemed to not have compartment syndrome at this time. Stable, still very painful and swollen, but is out of bed and ambulated today, making progress -continue elevation and ice when in bed -ambulate with PT -continue to hold Xarelto but could restart perhaps in 1 week -Ortho consult appreciated and they have now signed off -continue Morphine 2 mg every 2 hours as needed for pain but prefer po pain meds percocet and increase to 2 tabs today -PT eval as will need SNF -SCD ordered to rt leg only for DVT proph -Check Doppler LLE again today as high risk for DVT, does have IVC filter in place HTN, chronic diastolic CHF, chronic A. fib-stable, rate controlled, Pulm HTN, Cor pulmonale, Acute resp insufficiency--> no current issues except mild resp insufficiency and some wheezing which is now improved with albuterol nebs, will need nocturnal O2 at SNF -Continue atenolol 25 mg daily -Holding Anticoagulation as noted above due to massive leg swelling and bleeding -consider restarting in 1 week -Continue Lasix 60 mg daily -Continue metolazone 5 mg Thursday, Thursday, Thursday Hypokalemia-severe, K+ 2.5, on diuretics and was not on home KCl for 2 days initially--> now improved to 3.2 -replace KCl again today IV nad po -follow PRP Chronic kidney disease stage III-creatinine at baseline at 1.6, was up to 1.8, now down to 1.2 -renally dose meds -avoid nephrotoxins -follow PRP Wheezing, acute respiratory insufficiency-requiring 2LNC, with wheezing on exam. Has a h/o requiring Symbicort, may have some component of reactive airway disease plus atelectasis from bedrest and morbid obesity, some could be pulm edema. 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 Anemia is new just since this injury with bleeding. B12, folate, TSH all normal. He does not drink any EtOH to explain macrocytosis. -discussed with pt and . May benefit from routine Hematology referral as outpt for evaluation for MDS Constipation-acute on chronic-added docusate bid, senna qhs, continue daily Miralax and now moving bowels DVT prophylaxis -Anticoagulation contraindicated at this time -No TEDs, SCDs to L leg but ordered SCD for right leg CODE STATUS -LEVEL I FULL CODE Dispo-to likely SNF in 1-2 days
[2016-12-28] MEDS: SODIUM CHLORIDE 0.65% NA SOLN 45 ML (OCEAN) SCH ×2 (13:07→21:16)
--- NOTE | 2016-12-28 14:15 | DIAGNOSTIC IMAGING REPORT ---
LEFT LOWER EXTREMITY VENOUS DOPPLER HISTORY: Leg injury. Leg pain. COMPARISON STUDY: Venous Doppler 12/22/2016. FINDINGS: There is normal compressibility, flow, and augmentation within the left lower extremity deep venous system. There is an 11 x 2 cm complex subcutaneous fluid collection extending from the left knee to the lower leg. IMPRESSION: No DVT within the left lower extremity. An 11 x 2 cm complex fluid collection extending from the left knee to the lower leg. This favors a hematoma. Electronically signed by: Richard Torres M.D. 12/28/2016 2:14 PM Dictated Date/Time: 12/28/2016 2:12 PM
[2016-12-28] MEDS: SENNA 8.6 MG TAB PO SCH (21:16)
[2016-12-28] MEDS: TAMSULOSIN HCL 0.4 MG CAP PO SCH (21:17)
[2016-12-28] MEDS: DULOXETINE (CYMBALTA) 30 MG CAP PO SCH (21:17)
[2016-12-29 02:06] VITALS: PULSE 76; O2SAT 98
[2016-12-29] MEDS: ALBUTEROL 0.083% NEBU SOLN 3 ML VIAL INH SCH ×3 (02:06→14:29)
[2016-12-29 05:39] LABS: BASO % 0.8 %; BASO ABS # 0.05 K/uL (0-0.2); COMPLETE YES; EOS % 6.5 %; HEMATOCRIT 35.9 % (42-52); IG% 0.2 %; LYMPH % 14.2 %; LYMPH ABS # 0.88 K/uL (1.2-3.4); MEAN CELL VOLUME 104.1 fL (80-100); MEAN CORPUSCULAR HEMOGLOBIN 33.6 pg (25-34); MEAN CORPUSCULAR HGB CONC 32.3 g/dl (32-36); MEAN PLATELET VOLUME 9.9 fL (7.4-10.4); MONO % 9.9 %; NEUT % 68.4 %; PLATELET COUNT 202 K/uL (130-400); RED BLOOD COUNT 3.45 M/uL (4.7-6.1); WHITE BLOOD COUNT 6.18 K/uL (4.8-10.8)
[2016-12-29 06:15] LABS: BLOOD UREA NITROGEN 46 mg/dl (7-18); BUN/CREATININE RATIO 41.4 (10-20); CALCIUM 8.6 mg/dl (8.5-10.1); CARBON DIOXIDE 35 mmol/L (21-32); CHLORIDE 99 mmol/L (98-107); GLUCOSE 114 mg/dl (70-99); MAGNESIUM 2.6 mg/dl (1.8-2.4); POTASSIUM 3.6 mmol/L (3.5-5.1); SODIUM 138 mmol/L (136-145)
[2016-12-29 06:23] VITALS: BP 137/73; PULSE 81; TEMP 36.8; O2SAT 92
[2016-12-29 07:03] VITALS: PULSE 88; O2SAT 94
[2016-12-29] MEDS: DOCUSATE SODIUM 100 MG CAP PO SCH (07:16)
[2016-12-29] MEDS: SODIUM CHLORIDE 0.65% NA SOLN 45 ML (OCEAN) SCH ×2 (07:16→14:23)
[2016-12-29] MEDS: POTASSIUM CHLORIDE 10 MEQ TABCR PO SCH ×2 (07:17→12:03)
[2016-12-29] MEDS: FUROSEMIDE 20 MG TAB PO SCH (07:17)
[2016-12-29] MEDS: POLYETHYLENE (MIRALAX) 17 GM PACK PO SCH (07:19)
[2016-12-29] MEDS: METOLAZONE 5 MG TAB PO SCH (07:19)
[2016-12-29] MEDS: OXYCODONE/ACETAMINOPHEN 5-325 TAB PO PRN ×2 (07:28→16:18)
[2016-12-29] MEDS ORDERED: NURSING VERBAL MED ORDER ONE (07:30)
[2016-12-29] MEDS ORDERED: ALLOPURINOL 100 MG TAB PO SCH (12:30)
[2016-12-29] MEDS ORDERED: OXYC-57 PO (13:27)
--- NOTE | 2016-12-29 13:32 | Discharge Instructions ---
Discharge Instructions Date of Service Dec 29, 2016. Admission Reason for Admission: Leg Injury Discharge Discharge Diagnosis / Problem: Left leg hematoma after fall, on Xarelto Discharge Goals Goal(s): Decrease discomfort, Improve function Activity Recommendations Activity Level: Assistance Required Therapies: Physical Therapy, Occupational Therapy Weightbearing Status: Left weightbearing (as tolerated) Lifting Limitations: none Exercise/Sports Limitations: as tolerated Shower/Bathe: no limitations . Additional Information Patient informed of condition: Yes Advance Directives: Yes DNR: No Level of Care: Skilled (for rehab) Communicable Disease: No Prognosis: Improving Oxygen at (LPM): no Lr Catheter: No Instructions / Follow-Up Instructions / Follow-Up Medications: please note that patient should be on all of his prior medications with the exception of Xarelto, see below - XARELTO: hold for another week, safe to resume on 01/05 as long as leg swelling and bruising are improving - PERCOCET: use as needed for pain, prescribed 2 tabs every 4 hours but can be decreased to 1 tablet if pain only moderate Left leg has been swollen, tense, tender since admission. Good distal pulses, no pallor, full ROM of ankle. Evaluated by orthopedics, no signs of compartment syndrome. Left leg is warmer than the right leg, no fever the entire admission, normal WBC the entire admission. If he develops fever, would treat for cellulitis but currently no signs of infection. FOLLOW UP - primary care physician or physician at SNF this week Current Hospital Diet Patient's current hospital diet: AHA Diet (Heart Healthy) Discharge Diet Recommended Diet: AHA Diet (Heart Healthy) Pending Studies Studies pending at discharge: no Physician Orders On Transfer POLST Discussion: Not Applicable Laboratory Results Hemoglobin A1c Test 12/16/16 10:41 Range/Units Estimated Average Glucose 117 mg/dl Hemoglobin A1c 5.7 H 4.5-5.6 % Medical Emergencies . Who to Call and When: Medical Emergencies: If at any time you feel your situation is an emergency, please call 911 immediately. . Non-Emergent Contact Non-Emergency issues call your: Primary Care Provider Call Non-Emergent contact if: you have a fever, your pain is not controlled, your pain is worsening, you have any medication questions . . "Provider Documentation" section prepared by Jose Zaragoza. . Director Of Services Recommendations Director Of Services Recommendations: Continue observation, no clinical signs of compartment syndrome or surgical indication Left LE. Ice, elevation and medical input. Follow with 2-3 weeks, call [phone] for appt. Core Measure Problem Core Measures: None [place] Drug Monitoring Program Search Results: no issues identified
[2016-12-29 14:31] VITALS: PULSE 61; O2SAT 96
--- NOTE | 2016-12-29 15:02 | Discharge Summary ---
Discharge Summary Date of Service Dec 29, 2016. Discharge Summary Admission Date: Dec 22, 2016 at 18:22 Discharge Date: Dec 29, 2016 Discharge Disposition: [facility] facility (with rehab) Principal Diagnosis: Left leg hematoma from fall while on anticoagulation Problems/Secondary Diagnoses: chronic afib on Xarelto Chronic diastolic HF Hypertension CKD stage III Immunizations: Have You Had Influenza Vaccine: N/A Influenza Vaccine Date: Feb 07, 2010 History of Tetanus Vaccine?: Yes Tetanus Immunization Date: May 30, 2005 History of Pneumococcal: Yes Pneumococcal Date: May 30, 2005 History of Hepatitis B Vaccine: No Procedures: none Consultations: Orthopedics Medication Reconciliation New Medications: Oxycodone/Acetaminophen 5MG/325MG (Percocet 5MG/325MG) Tab 2 TAB PO Q4H PRN for Pain, #60 TAB 0 Refills PAIN Continued Medications: Allopurinol (Zyloprim) 100 Mg Tab 200 MG PO DAILY, TAB Atenolol (Atenolol) 25 Mg Tab 25 MG PO DAILY Bioflavonoid Products (Shante-C) 1 Tab Tab 1 TAB PO DAILY Calcium Carbonate (Calcium) 600 Mg Tab 1200 MG PO DAILY Cholecalciferol (Vitamin D3) 1,000 Unit Tab 1000 UNITS PO DAILY for 90 Days, TAB 3 Refills Docusate Sodium (Docusate Sodium) 100 Mg Cap 100 MG PO BID for 7 Days, #14 CAP Duloxetine HCl (Cymbalta) 30 Mg Cap 30 MG PO QPM for 30 Days, CAP 2 Refills Fluocinonide Emulsified Base (Fluocinonide-E) 0.05 % Cre 1 APPLN TOP BID Furosemide (Lasix) 20 Mg Tab 60 MG PO QAM, TAB Metolazone (Zaroxolyn) 5 Mg Tab 5 MG PO MWF, TAB Multiple Vitamins W/ Minerals (Centrum Silver Adult 50+) 1 Tab Tab 1 TAB PO QDB Potassium Chloride (Micro-K Ext Rel) 10 Meq Capcr 20 MEQ PO AMPM, CAP TAKE WITH BREAKFAST & DINNER Tamsulosin Hcl (Flomax) 0.4 Mg Cap 0.4 MG PO QPM, CAP TAKE 1 HOUR AFTER SUPPER Discontinued Medications: Doxycycline Hyclate (Doxycycline Hyclate) 100 Mg Cap 100 MG PO BID STARTED 12/16/16 TO TAKE FOR 7 DAYS Oxycodone/Acetaminophen 5MG/325MG (Percocet 5MG/325MG) Tab 1 TABLET PO Q6H PRN for Pain, TAB Rivaroxaban (Xarelto) 15 Mg Tab 15 MG PO DAILY Discharge Exam Patient says he has no pain while laying down, has moderate pain while sitting and walking. Discussed going to [facility] for rehab. discussed d/c plans with the patient and his at the bedside plan to hold Xarelto for a week, Percocet for pain Review of Systems: Constitutional: + weakness, + fatigue, No fever, No chills, No sweats, No weight loss, No problem reported Eyes: No worsening of vision, No eye pain, No redness, No discharge, No diplopia, No problem reported ENT: No hearing loss, No unusual epistaxis, No nasal symptoms, No sore throat, No tinnitus, No dental problems, No trouble swallowing, No problem reported Respiratory: No cough, No sputum, No wheezing, No shortness of breath, No dyspnea on exertion, No dyspnea at rest, No hemoptysis, No problem reported Cardiovascular: No chest pain, No orthopnea, No PND, No edema, No claudication, No palpitations, No problem reported Abdomen: No pain, No nausea, No vomiting, No diarrhea, No constipation, No GI bleeding, No problem reported Musculoskeletal: + swelling (left lower leg), No joint pain, No muscle pain , No calf pain, No problem reported Genitourinary - Male: No hematuria, No dysuria, No urinary frequency, No urinary urgency Neurologic: No memory loss, No paralysis, No weakness, No numbness/tingling , No vertigo, No balance problems, No problem reported Psychiatric: No depression symptoms, No anhedonism, No anxiety, No insomnia , No substance abuse, No problem reported Endocrine: No fatigue, No excessive thirst, No excessive urination, No problem reported Hematologic / Lymphatic: No abnormal bleeding/bruising, No clotting problems , No swollen lymph nodes, No night sweats, No problem reported Integumentary: + problem reported (left lower leg bruising) Physical Exam: General Appearance: WD/WN, no apparent distress Eyes: normal inspection, EOMI, sclerae normal ENT: normal ENT inspection, hearing grossly normal, pharynx normal Neck: supple, no adenopathy, no JVD, trachea midline Respiratory/Chest: chest non-tender, lungs clear, normal breath sounds, no respiratory distress, no accessory muscle use Cardiovascular: no edema, no gallop, no JVD, no murmur, normal peripheral pulses, + irregularly irregular Abdomen / GI: normal bowel sounds, non tender, soft, no organomegaly Extremities: normal capillary refill, normal range of motion, pelvis stable , + pertinent finding (left lower leg larger in circumference, tense, tender, dark discoloration and warmer than right leg, distal pulses intact) Neurologic/Psychiatric: slab puller II-XII nml as tested, no motor/sensory deficits , alert, normal mood/affect, normal reflexes, oriented x 3 Skin: + pertinent finding (left lower leg bruising from knee to ankle) Hospital Course This patient is a 75-year-old male with a h/o chronic A-fib on Xarelto, CKD stage III, obesity, chronic diastolic CHF, pulmonary HTN, HTN, Peripheral neuropathy, IPMNs, h/o colon rupture, and spinal stenosis with gait dysfunction , who presents with a mechanical fall and significant ecchymosis, swelling and pain in the left lower extremity. Patient was sent in from the primary care physician for concerns of compartment syndrome. Doppler of the LLE neg for DVT. Previous xrays at outside hospital negative for fractures. Has an IVC filter in place. Left leg injury/Massive edema,ecchymosis exacerbated by anticoagulation-seen by Ortho and deemed to not have compartment syndrome (pulses intact, no pallor, moving ankle) ambulating slowly with therapy, using walker pain controlled while laying down, increased pain when sitting and standing leg is warm, tense, tender but no fever, normal WBC so doubt cellulitis at this time Percocet PRN for pain control continue to hold Xarelto for a week, can resume on 01/05 d/c to [facility] for rehab HTN, chronic diastolic CHF, chronic A. fib-stable, rate controlled, Pulm HTN, Cor pulmonale, Acute resp insufficiency--> no current issues except mild resp insufficiency and some wheezing which quickly resolved with albuterol nebs -Continue atenolol 25 mg daily -Holding Anticoagulation as noted above due to massive leg swelling and bleeding -consider restarting in 1 week (01/05) -Continue Lasix 60 mg daily -Continue metolazone 5 mg Thursday, Thursday, Thursday Hypokalemia- resolved with IV and PO supplementation - continue home regimen Chronic kidney disease stage III-creatinine at baseline at 1.6, was up to 1.8, back down to 1.2 on most recent check -renally dose meds Macrocytosis, Anemia of acute blood loss-Macrocytosis is chronic off and on since 2009, also with borderline thrombocytopenia, but no leukopenia. Anemia is new just since this injury with bleeding. - hb on d/c is 11.6 B12, folate, TSH all normal. He does not drink any EtOH to explain macrocytosis. -discussed with pt and . May benefit from routine Hematology referral as outpt for evaluation for MDS Constipation-acute on chronic-added docusate bid, senna qhs, continue daily Miralax and now moving bowels DVT prophylaxis -Anticoagulation contraindicated at this time -No TEDs, SCDs to L leg but ordered SCD for right leg CODE STATUS -LEVEL I FULL CODE Total Time Spent: Greater than 30 minutes This includes examination of the patient, discharge planning, medication reconciliation, and communication with other providers. Discharge Instructions Please refer to the electronic Patient Visit Report (Discharge Instructions) for additional information. Follow-Up Physician at [facility] this week Additional Copies To Saleem Gil M.D.
[2016-12-29 16:05] VITALS: BP 137/73; PULSE 61; TEMP 36.8; O2SAT 96
== END 2016-12-29 16:45 | DRG 813 ==
LOC: C.EDB 12:39 → C.3E 18:22 → ENRESERV 18:25
PROVIDERS: ADMIT Hospitalist; ATTEND Internal Medicine
DX: D68.32 Hemorrhagic disorder due to extrinsic circulating anticoagulants (principal); I50.32 Chronic diastolic (congestive) heart failure; S80.12XA Contusion of left lower leg, initial encounter; I12.9 Hypertensive chronic kidney disease with stage 1 through stage 4 chronic kidney disease, or unspecified chronic kidney disease; N18.3 Chronic kidney disease, stage 3 (moderate); E87.6 Hypokalemia; E11.9 Type 2 diabetes mellitus without complications; M10.9 Gout, unspecified; E78.5 Hyperlipidemia, unspecified; Z96.659 Presence of unspecified artificial knee joint; G47.33 Obstructive sleep apnea (adult) (pediatric); M19.90 Unspecified osteoarthritis, unspecified site; Z86.711 Personal history of pulmonary embolism; I48.0 Paroxysmal atrial fibrillation; W19.XXXA Unspecified fall, initial encounter; Z79.01 Long term (current) use of anticoagulants

== ENCOUNTER → 2017-02-02 | Outpatient (CLI) | payer OTHER, MEDICARE ==
[~2017-02-02] MED LIST changes: +ALLO100T PO; -ALLO1TAB51 PO; +CALC-393 PO; -CALCTAB5 PO; +CHOL1000 PO; -CHOL5000 PO; +CYM/30 PO; -DOCU100C22 PO; +DOCU100C31 PO; +FLUOCRE TOP; -LYR50 PO; +OXYC-57 PO; +TAMS0.4C38 PO; -TAMS0.4C59 PO; -WARF5TAB7 PO
[2017-02-03 15:57] LABS: ALBUMIN 4.2 G/DL (3.8-4.8); GAMMA GLOBULIN 1.4 G/DL (0.8-1.7); TOTAL PROTEIN 7.7 G/DL (6.2-8.3)
== END | disposition home or self-care (01) ==
LOC: C.LABBC 10:02
PROVIDERS: ATTEND Psychiatry & Neurology Neurology
DX: G62.9 Polyneuropathy, unspecified (principal)

== ENCOUNTER → 2017-03-16 | Outpatient (CLI) | payer OTHER, MEDICARE ==
[2017-03-16 13:40] LABS: BLOOD UREA NITROGEN 46 mg/dl (7-18); BUN/CREATININE RATIO 37.3 (10-20); CREATININE 1.24 mg/dl (0.60-1.40)
== END | disposition home or self-care (01) ==
LOC: C.LABBC 10:24
PROVIDERS: ATTEND Urology
DX: R97.20 Elevated prostate specific antigen [PSA] (principal)

== ENCOUNTER → 2017-03-30 | Outpatient (CLI) | payer OTHER, MEDICARE ==
[~2017-03-30] MED LIST changes: +GADAVIST IV PRN
--- NOTE | 2017-03-30 14:00 | DIAGNOSTIC IMAGING REPORT ---
PROSTATE MRI COMBO CLINICAL HISTORY: 76 years-old Male presenting with ELEVATED PSA R97.20. Patient presents with elevated PSA and negative biopsy. TECHNIQUE: Multisequence, multiplanar MR imaging of the prostate was performed before and after the administration of intravenous contrast. Additional postprocessing was performed on a separate [employer] workstation by the radiologist for 3-D volumetric segmentation of the prostate and contouring of region(s) of interest (RADHA) for targeting. IV contrast: 12 mL Gadavist. COMPARISON: MRI of the abdomen 03/25/2017. FINDINGS: Prostate: The prostate measures 4.2 x 4.5 x 3.4 cm (DynaCAD prostate boundary segmentation volume 37.8 mL). Moderate changes of benign prostatic hyperplasia. Precontrast T1 weighted imaging demonstrates no evidence of intrinsic T1 hyperintensity to suggest hemorrhage. The seminal vesicles demonstrate inspissated debris or hemorrhagic material. Suspicious lesion(s) described below: Lesion (DynaCAD RADHA) : Location: Left posterolateral peripheral zone at the base. The lesion does not extend across the midline. Size: 13 x 8 mm (as measured on ADC for PZ lesion and T2WI for TZ lesion) T2W: Focal markedly T2 hypointense No evidence of extraprostatic extension. DWI: 4. Focal markedly hypointense on ADC and markedly hyperintense on high b-value DWI. DCE: Positive. Focal enhancement corresponding to a suspicious finding, earlier or contemporaneous with adjacent normal tissue. PI-RADS: 4. Clinically significant cancer is likely to be present. Bladder: Bladder wall thickening likely indicating chronic outlet obstruction. Bowel: Visualized portion of the rectum normal. Peritoneum: No free fluid in the pelvis. Lymph nodes: No lymphadenopathy in the visualized portion of the pelvis. Vasculature: Iliac vessels patent. Osseous structures: Normal bone marrow signal intensity. IMPRESSION: 1. 13 mm lesion in the left posterolateral peripheral zone at the base. PI-RADS 4. Clinically significant cancer is likely to be present. This lesion has been segmented for targeted biopsy. 2. Benign prostatic hyperplasia. Electronically signed by: Oh Gill M.D. 03/30/2017 1:58 PM Dictated Date/Time: 03/30/2017 1:26 PM
== END | disposition home or self-care (01) ==
LOC: C.MRIBC 10:14
PROVIDERS: ATTEND Urology
DX: R97.20 Elevated prostate specific antigen [PSA] (principal); N40.0 Benign prostatic hyperplasia without lower urinary tract symptoms

== ENCOUNTER → 2017-04-19 | Outpatient (CLI) | payer OTHER, MEDICARE ==
[~2017-04-19] MED LIST changes: -GADAVIST IV PRN
[2017-04-19 13:18] LABS: BASO % 1.3 %; BASO ABS # 0.07 K/uL (0-0.2); COMPLETE YES; EOS % 8.3 %; HEMATOCRIT 44.9 % (42-52); IG% 0.2 %; LYMPH ABS # 1.38 K/uL (1.2-3.4); MEAN CELL VOLUME 102.5 fL (80-100); MEAN CORPUSCULAR HEMOGLOBIN 33.1 pg (25-34); MEAN CORPUSCULAR HGB CONC 32.3 g/dl (32-36); MEAN PLATELET VOLUME 10.9 fL (7.4-10.4); MONO % 9.1 %; NEUT % 56.1 %; PLATELET COUNT 168 K/uL (130-400); RED BLOOD COUNT 4.38 M/uL (4.7-6.1); WHITE BLOOD COUNT 5.52 K/uL (4.8-10.8)
[2017-04-19 13:49] LABS: ALT/SGPT 25 U/L (12-78); AST/SGOT 21 U/L (15-37); BLOOD UREA NITROGEN 58 mg/dl (7-18); BUN/CREATININE RATIO 44.2 (10-20); CALCIUM 9.5 mg/dl (8.5-10.1); CARBON DIOXIDE 30 mmol/L (21-32); CHLORIDE 99 mmol/L (98-107); CREATININE 1.32 mg/dl (0.60-1.40); GLUCOSE 103 mg/dl (70-99); POTASSIUM 3.6 mmol/L (3.5-5.1); SODIUM 138 mmol/L (136-145)
[2017-04-19 13:59] LABS: ALB/GLOB RATIO 0.8 (0.9-2); ALKALINE PHOSPHATASE 64 U/L (45-117); CHOLESTEROL 149 mg/dl (0-200); HDL CHOLESTEROL 50 mg/dl; LDL CHOLESTEROL CALCULATED 78 mg/dl; TRIGLYCERIDES 105 mg/dl (0-150); VERY LOW DENSITY LIPOPROT CALC 21 mg/dl
[2017-04-20 07:54] LABS: ESTIMATED AVERAGE GLUCOSE 114 mg/dl; HA1C FLAG Normal (Normal)
== END | disposition home or self-care (01) ==
LOC: C.LAB 12:21
PROVIDERS: ATTEND Internal Medicine Geriatric Medicine
DX: M10.9 Gout, unspecified (principal); R73.9 Hyperglycemia, unspecified; N18.9 Chronic kidney disease, unspecified; E78.5 Hyperlipidemia, unspecified; I12.9 Hypertensive chronic kidney disease with stage 1 through stage 4 chronic kidney disease, or unspecified chronic kidney disease; I48.2 Chronic atrial fibrillation; Z68.41 Body mass index [BMI] 40.0-44.9, adult

== ENCOUNTER → 2017-06-11 | Outpatient (CLI) | payer OTHER, MEDICARE | END | disposition home or self-care (01) | LOC: C.PATHSPEC 17:15 | PROVIDERS: ATTEND Urology | DX: C61 Malignant neoplasm of prostate (principal) ==

== ENCOUNTER 2017-06-22 15:37 | Inpatient (IN) | payer OTHER, MEDICARE ==
[~2017-06-22] VITALS: Ht 172.7 cm; Wt 128.8 kg
[~2017-06-22 15:37] MED LIST changes: -DULO60CA44 PO; -OPTIRAY 320 IV PRN
[2017-06-22] MEDS ORDERED: LEVAQUIN 750MG / 150ML D5W IV STA (16:47)
[2017-06-22] MEDS ORDERED: PIPERACILLIN/TAZOBACTAM 4.5 GM/100ML D5W IV STA (16:47)
[2017-06-22 17:24] LABS: BASO % 0.8 %; BASO ABS # 0.04 K/uL (0-0.2); EOS % 4.9 %; EOS ABS # 0.26 K/uL (0-0.5); HEMATOCRIT 41.5 % (42-52); HEMOGLOBIN 13.2 g/dL (14.0-18.0); IG# 0.01 K/uL (0.00-0.02); LYMPH % 20.9 %; MEAN CELL VOLUME 103.5 fL (80-100); MEAN CORPUSCULAR HEMOGLOBIN 32.9 pg (25-34); MEAN CORPUSCULAR HGB CONC 31.8 g/dl (32-36); MEAN PLATELET VOLUME 11.1 fL (7.4-10.4); MONO % 9.5 %; NEUT % 63.7 %; NEUT ABS # 3.36 K/uL (1.4-6.5); NUCLEATED RED BLOOD CELL ABS 0.03 K/uL (0-0); PLATELET COUNT 149 K/uL (130-400); RED CELL DISTRIBUTION WIDTH SD 64.6 fL (36.4-46.3); WHITE BLOOD COUNT 5.27 K/uL (4.8-10.8)
[2017-06-22 17:32] LABS: INR 1.2 (0.9-1.1); PTT PATIENT 30.2 SECONDS (21.0-31.0)
[2017-06-22] MEDS ORDERED: DULO60CA44 PO (17:40)
[2017-06-22 17:41] LABS: ALBUMIN 3.6 gm/dl (3.4-5.0); CALCIUM 9.5 mg/dl (8.5-10.1); CREATININE 1.24 mg/dl (0.60-1.40); POTASSIUM 3.7 mmol/L (3.5-5.1)
[2017-06-22 18:06] LABS: INFLUENZA B ANTIGEN Neg for Influ B (NEG)
[2017-06-22 18:35] LABS: INFLUENZA A PCR Neg for Influ A (NEG); INFLUENZA B PCR Neg for Influ B (NEG)
[2017-06-22] MEDS ORDERED: ONDANSETRON INJ 2 MG/ML 2 ML VIAL IV PRN (19:30)
[2017-06-22] MEDS ORDERED: OXYCODONE/ACETAMINOPHEN 5-325 TAB PO PRN (19:30)
[2017-06-22] MEDS ORDERED: ALUMINUM/MAGNESIUM/SIMETH (MAALOX MAX) 30 ML UDC PO PRN (19:30)
[2017-06-22] MEDS ORDERED: MAGNESIUM HYDROXIDE SUSP 30 ML UDC PO PRN (19:30)
[2017-06-22] MEDS ORDERED: LIDOCAINE HCL 5% OINT 30 GM TUBE EXT PRN (19:30)
[2017-06-22] MEDS ORDERED: POLYETHYLENE (MIRALAX) 17 GM PACK PO PRN (19:30)
--- NOTE | 2017-06-22 19:40 | EMERGENCY ROOM VISIT NOTE ---
History Report prepared by Avelino: Beau Fisher Under the Supervision of: Dr. Nik Argueta M.D. First contact with patient: 16:32 Chief Complaint: SHORTNESS OF BREATH Stated Complaint: SOB History of Present Illness The patient is a 76 year old male who presents to the Emergency Room after referral from his primary care physician Dr. Gil. The patient had a CT scan of the chest performed this morning which showed patchy consolidation of the right lower lobe, as well as the right upper and middle lobes to a lesser degree. There was no pulmonary emboli. The patient also had Venous Doppler of the lower extremities performed which showed no deep vein thrombosis. He was told he could leave the hospital after his scans. As the patient an his were leaving the hospital they were called by Dr. Saleem Gil and told to come to the Emergency Department immediately. The CT scans today were performed secondary to persistent shortness of breath and cough for 2 weeks. His cough was producing a green mucous. These symptoms are still present currently. The Venous Doppler of the legs was performed due to some increased edema to the bilateral calfs. The patient and his note that his legs are red and warm to the touch at baseline. He states this is been going on for years since his knee replacements. He denies any fevers or chest pain. The patient is on Xarelto daily, he stopped this medication for a few days for a prostate biopsy, and began taking it again two days ago. Source of History: patient, spouse/significant other Position: chest (Respiratory) Symptom Intensity: moderate Quality: other (SOB) Timing: other (persistent) Associated Symptoms: + cough, No fevers, No chest pain Review of Systems See HPI for pertinent positives & negatives. A total of 10 systems reviewed and were otherwise negative. Past Medical & Surgical Medical Problems: (1) Anticoagulants,Lt,Current Use (2) Atrial Fibrillation (3) Calculus Of Kidney (4) Chronic Kidney Disease, Unspecified (5) Diab Adela Wo Compl, Type Ii Or Unspec Type, Not Uncntrld (6) Gout Nos (7) Hx-Venous Thrombosis&Embolism (8) Hyperlipidemia Nec/Nos (9) Hypertension Nos (10) Knee Joint Replacement Status (11) Leg injury (12) Lumbago (13) Obstructive Sleep Apnea (Adult) (Pediatric) (14) Osteoarthros Nos-Unspec (15) Personal History Of Pulmonary Embolism (16) Personal History Of Tuberculosis (17) PNA (pneumonia) (18) Spinal Stenosis-Oth Site Surgical Problems: (1) History of back surgery Family History Patient reports no known family medical history. Social History Smoking Status: Never Smoker Drug Use: none Marital Status: Housing Status: lives with family Occupation Status: retired Current/Historical Medications Scheduled Allopurinol (Zyloprim), 200 MG PO DAILY Atenolol (Atenolol), 25 MG PO DAILY Bioflavonoid Products (Shante-C), 1 TAB PO DAILY Calcium Carbonate (Calcium), 1,200 MG PO DAILY Cholecalciferol (Vitamin D3), 1,000 UNITS PO DAILY Docusate Sodium (Docusate Sodium), 100 MG PO BID Duloxetine Hcl (Cymbalta), 1 CAP PO DAILY Furosemide (Lasix), 60 MG PO QAM Metolazone (Zaroxolyn), 5 MG PO MWF Multiple Vitamins W/ Minerals (Centrum Silver Adult 50+), 1 TAB PO QDB Potassium Chloride (Micro-K Ext Rel), 20 MEQ PO AMPM Tamsulosin Hcl (Flomax), 0.4 MG PO QPM Scheduled PRN Oxycodone/Acetaminophen 5MG/325MG (Percocet 5MG/325MG), 2 TAB PO Q4H PRN for Pain Allergies Coded Allergies: No Known Allergies (Verified , 10/12/15) Physical Exam Vital Signs Date Time Temp Pulse Resp B/P (MAP) Pulse Ox O2 Delivery O2 Flow Rate FiO2 06/22/17 18:41 65 22 131/73 95 Room Air 06/22/17 17:38 61 22 113/49 94 Room Air 06/22/17 17:03 64 06/22/17 17:00 94 Room Air 06/22/17 17:00 94 Room Air 06/22/17 16:12 36.7 69 18 160/80 95 Room Air Physical Exam Constitutional: Vital signs reviewed. Eyes: Pupils are equal round reactive to light. Conjunctiva are noninjected. ENT: Pharynx is clear without erythema or exudate. Mucous membranes are moist. Neck supple without meningeal signs. Respiratory: Clear to auscultation bilaterally. Breath sounds are equal bilaterally. Cardiovascular: Regular rate and rhythm. No rubs or gallops. GI: Soft, nondistended and nontender. Bowel sounds are present. Musculoskeletal: There is bilateral lower extremity edema on exam, with increased redness and warmth to the lower legs bilaterally. Integumentary: No cyanosis. Neurological: The patient is awake and alert. No focal deficits. Psychiatric: Normal affect. Medical Decision & Procedures Laboratory Results 06/22/17 17:00 Red Blood Count 4.01, Mean Corpuscular Volume 103.5, Mean Corpuscular Hemoglobin 32.9, Mean Corpuscular Hemoglobin Concent 31.8, Mean Platelet Volume 11.1, Neutrophils (%) (Auto) 63.7, Lymphocytes (%) (Auto) 20.9, Monocytes (%) ( Auto) 9.5, Eosinophils (%) (Auto) 4.9, Basophils (%) (Auto) 0.8, Neutrophils # ( Auto) 3.36, Lymphocytes # (Auto) 1.10, Monocytes # (Auto) 0.50, Eosinophils # ( Auto) 0.26, Basophils # (Auto) 0.04 06/22/17 17:00 Test 06/22/17 17:00 06/22/17 17:03 06/22/17 17:18 White Blood Count 5.27 K/uL (4.8-10.8) Red Blood Count 4.01 M/uL (4.7-6.1) Hemoglobin 13.2 g/dL (14.0-18.0) Hematocrit 41.5 % (42-52) Mean Corpuscular Volume 103.5 fL (80-100) Mean Corpuscular Hemoglobin 32.9 pg (25-34) Mean Corpuscular Hemoglobin Concent 31.8 g/dl (32-36) Platelet Count 149 K/uL (130-400) Mean Platelet Volume 11.1 fL (7.4-10.4) Neutrophils (%) (Auto) 63.7 % Lymphocytes (%) (Auto) 20.9 % Monocytes (%) (Auto) 9.5 % Eosinophils (%) (Auto) 4.9 % Basophils (%) (Auto) 0.8 % Neutrophils # (Auto) 3.36 K/uL (1.4-6.5) Lymphocytes # (Auto) 1.10 K/uL (1.2-3.4) Monocytes # (Auto) 0.50 K/uL (0.11-0.59) Eosinophils # (Auto) 0.26 K/uL (0-0.5) Basophils # (Auto) 0.04 K/uL (0-0.2) RDW Standard Deviation 64.6 fL (36.4-46.3) RDW Coefficient of Variation 17.0 % (11.5-14.5) Immature Granulocyte % (Auto) 0.2 % Immature Granulocyte # (Auto) 0.01 K/uL (0.00-0.02) Nucleated RBC Absolute Count (auto) 0.03 K/uL (0-0) Nucleated Red Blood Cells % 0.5 % Prothrombin Time 12.6 SECONDS (9.0-12.0) Prothromb Time International Ratio 1.2 (0.9-1.1) Activated Partial Thromboplast Time 30.2 SECONDS (21.0-31.0) Partial Thromboplastin Ratio 1.2 Anion Gap 8.0 mmol/L (3-11) Est Creatinine Clear Calc Drug Dose 68.3 ml/min Estimated GFR () 65.0 Estimated GFR (Non- 56.1 BUN/Creatinine Ratio 33.9 (10-20) Calcium Level 9.5 mg/dl (8.5-10.1) Total Bilirubin 0.9 mg/dl (0.2-1) Aspartate Amino Transf (AST/SGOT) 28 U/L (15-37) Alanine Aminotransferase (ALT/SGPT) 29 U/L (12-78) Alkaline Phosphatase 48 U/L (45-117) Total Protein 8.0 gm/dl (6.4-8.2) Albumin 3.6 gm/dl (3.4-5.0) Globulin 4.4 gm/dl (2.5-4.0) Albumin/Globulin Ratio 0.8 (0.9-2) Influenza Type A (RT-PCR) Neg for Influ A (NEG) Influenza Type A Antigen Neg for Influ A (NEG) Influenza Type B Antigen Neg for Influ B (NEG) Influenza Type B (RT-PCR) Neg for Influ B (NEG) Bedside Lactic Acid Venous 1.28 mmol/L (0.90-1.70) Laboratory results as reviewed by me. Medications Administered Medications (Trade) Dose Ordered Sig/Guero Route Start Time Stop Time Status Last Admin Dose Admin Piperacillin Sod/ Tazobactam Sod (Zosyn Iv) 4.5 gm ONE STAT IV 06/22/17 16:47 06/22/17 16:49 DC 06/22/17 17:37 4.5 GM Levofloxacin (Levaquin / D5W) 750 mg ONE STAT IV 06/22/17 16:47 06/22/17 16:49 DC 06/22/17 18:10 750 MG ECG Indication: SOB/dyspnea Rate (beats per minute): 64 Rhythm: atrial fibrillation Findings: PVC, other (Low voltage QRS) Change: Patient's electrocardiogram per my interpretation. ED Course 163: The patient was evaluated in room C4. A complete history and physical exam was performed. 164: Ordered Zosyn 4.5 gm IV, Levofloxacin 750 mg IV. 1800: I discussed the case with Dr. Luigi Encinas. He will evaluate the patient for further treatment. 180: After my discussion with Dr. Meyers I spoke with the patient. He is still agreeable to an inpatient stay. Medical Decision This is a 76-year-old male presents with shortness breath and cough. Differential diagnosis includes pneumonia, bronchitis, influenza, metastatic disease, sepsis. I did perform a limited focused review of portions of the patient's old chart on the electronic medical record. The patient had a CT scan of the chest performed this morning which showed patchy consolidation of the right lower lobe, as well as the right upper and middle lobes to a lesser degree. There is no pulmonary emboli. The patient also had Venous Doppler of the lower extremities performed which showed no deep vein thrombosis. I did evaluate the patient as noted above. IV access was established. The patient was placed on a continuous equipment monitor phototypesetting. I did order and personally review the patient's 12-lead EKG as described above. I did order and review the patient's blood work as noted in the electronic medical record. A rapid flu test was obtained and was negative. I did discuss the test results with the patient and his . I did treat him with IV Zosyn and Levaquin. I did discuss the case with the hospitalist and correctional counselor/case manager. Medication Reconcilliation Current Medication List: was personally reviewed by me Blood Pressure Screening Patient's blood pressure: Elevated blood pressure Consults Time Called: 1800 Consulting Physician: Dr. Luigi Encinas Returned Call: 1800 I discussed the case with Dr. Luigi Encinas. He will evaluate the patient for further treatment. Impression Primary Impression: Multifocal pneumonia Scribe Attestation The scribe's documentation has been prepared under my direct and personally reviewed by me in its entirety. I confirm that the note above accurately reflects all work, treatment, procedures, and medical decision making performed by me. Departure Information Dispostion Being Evaluated By Hospitalist Referrals Saleem Gil M.D. (PCP) Patient Instructions My [facility]
--- NOTE | 2017-06-22 19:42 | History and Physical ---
History & Physical Date & Time of Service: Jun 22, 2017 at 19:25 Chief Complaint: SOB Primary Care Physician: Saleem Gil M.D. History of Present Illness Source: patient, clinic records, hospital records Patient is a pleasant 75 y/o male, with PMHx of chronic a.fib, HTN, chronic diastolic CHF, gout, BPH, chronic lower extremity edema, who presented to the ED due to PNA findings on CT today. Patient has been complaining of progressive SOB and productive cough x2 weeks. He went to see his PCP this AM who ordered a CTA and bilateral lower extremities dopplers. No evidence of DVT or PE. R lower/ mid/upper PNA noted. Patient has chronic bilateral lower extremity edema, warmth , and swelling since bilateral knee replacement in the past. He states bilateral lower extremities look at baseline. He is currently being worked up outpatient. Patient denies any fever, chills, sweats, lightheadedness, dizziness , vision changes, CP, palpitations, edema, wheezing, abdominal pain, nausea, vomiting, diarrhea, urinary symptoms, melena, numbness/tingling, weakness, muscle/joint pain, anxiety/depression, active bleeding, or new skin discoloration/changes. Past Medical/Surgical History chronic a.fib HTN chronic diastolic CHF gout BPH chronic lower extremity edema back surgery bilateral knee replacement Family History Patient reports no known family medical history. Social History Smoking Status: Never Smoker Drug Use: none Marital Status: Housing status: lives with family Occupational Status: retired Immunizations History of Influenza Vaccine: N/A Influenza Vaccine Date: Feb 07, 2010 History of Tetanus Vaccine?: Yes Tetanus Immunization Date: May 30, 2005 History of Pneumococcal: Yes Pneumococcal Date: May 30, 2005 History of Hepatitis B Vaccine: No Multi-Drug Resistant Organisms History of MDRO: No Allergies Coded Allergies: No Known Allergies (Verified , 10/12/15) Home Medications Scheduled Allopurinol (Zyloprim), 200 MG PO DAILY Atenolol (Atenolol), 25 MG PO DAILY Bioflavonoid Products (Shante-C), 1 TAB PO DAILY Calcium Carbonate (Calcium), 1,200 MG PO DAILY Cholecalciferol (Vitamin D3), 1,000 UNITS PO DAILY Docusate Sodium (Docusate Sodium), 100 MG PO BID Duloxetine Hcl (Cymbalta), 1 CAP PO DAILY Furosemide (Lasix), 60 MG PO QAM Metolazone (Zaroxolyn), 5 MG PO MWF Multiple Vitamins W/ Minerals (Centrum Silver Adult 50+), 1 TAB PO QDB Potassium Chloride (Micro-K Ext Rel), 20 MEQ PO AMPM Tamsulosin Hcl (Flomax), 0.4 MG PO QPM Scheduled PRN Oxycodone/Acetaminophen 5MG/325MG (Percocet 5MG/325MG), 2 TAB PO Q4H PRN for Pain Physical Exam Vital Signs Date Time Temp Pulse Resp B/P (MAP) Pulse Ox O2 Delivery O2 Flow Rate FiO2 06/22/17 18:41 65 22 131/73 95 Room Air 06/22/17 17:38 61 22 113/49 94 Room Air 06/22/17 17:03 64 06/22/17 17:00 94 Room Air 06/22/17 17:00 94 Room Air 06/22/17 16:12 36.7 69 18 160/80 95 Room Air General Appearance: no apparent distress, + obese Head: normocephalic, atraumatic Eyes: PERRL ENT: hearing grossly normal Neck: supple Respiratory/Chest: no respiratory distress, no accessory muscle use, + crackles (R lung base ), + wheezing (mild expiratory wheeze ) Cardiovascular: + irregularly irregular (rate controlled ) Abdomen/GI: normal bowel sounds, non tender, soft Back: normal inspection Extremities/Musculoskelatal: + swelling (bilateral lower extremities ), + pertinent finding (erythem, ttp, and warmth to bilateral lower extremities (mid- beckett to toes)- chronic per patient; chronic stasis changes) Neurologic/Psych: alert, normal mood/affect, oriented x 3 Skin: normal color, warm/dry, no rash Diagnostics Laboratory Results Results Past 24 Hours Test 06/22/17 17:00 06/22/17 17:03 06/22/17 17:18 Range/Units White Blood Count 5.27 4.8-10.8 K/uL Red Blood Count 4.01 4.7-6.1 M/uL Hemoglobin 13.2 14.0-18.0 g/dL Hematocrit 41.5 42-52 % Mean Corpuscular Volume 103.5 80-100 fL Mean Corpuscular Hemoglobin 32.9 25-34 pg Mean Corpuscular Hemoglobin Concent 31.8 32-36 g/dl Platelet Count 149 130-400 K/uL Mean Platelet Volume 11.1 7.4-10.4 fL Neutrophils (%) (Auto) 63.7 % Lymphocytes (%) (Auto) 20.9 % Monocytes (%) (Auto) 9.5 % Eosinophils (%) (Auto) 4.9 % Basophils (%) (Auto) 0.8 % Neutrophils # (Auto) 3.36 1.4-6.5 K/uL Lymphocytes # (Auto) 1.10 1.2-3.4 K/uL Monocytes # (Auto) 0.50 0.11-0.59 K/uL Eosinophils # (Auto) 0.26 0-0.5 K/uL Basophils # (Auto) 0.04 0-0.2 K/uL RDW Standard Deviation 64.6 36.4-46.3 fL RDW Coefficient of Variation 17.0 11.5-14.5 % Immature Granulocyte % (Auto) 0.2 % Immature Granulocyte # (Auto) 0.01 0.00-0.02 K/uL Nucleated RBC Absolute Count (auto) 0.03 0-0 K/uL Nucleated Red Blood Cells % 0.5 % Prothrombin Time 12.6 9.0-12.0 SECONDS Prothromb Time International Ratio 1.2 0.9-1.1 Activated Partial Thromboplast Time 30.2 21.0-31.0 SECONDS Partial Thromboplastin Ratio 1.2 Sodium Level 139 136-145 mmol/L Potassium Level 3.7 3.5-5.1 mmol/L Chloride Level 100 98-107 mmol/L Carbon Dioxide Level 31 21-32 mmol/L Anion Gap 8.0 3-11 mmol/L Blood Urea Nitrogen 42 7-18 mg/dl Creatinine 1.24 0.60-1.40 mg/dl Est Creatinine Clear Calc Drug Dose 68.3 ml/min Estimated GFR () 65.0 Estimated GFR (Non- 56.1 BUN/Creatinine Ratio 33.9 10-20 Random Glucose 101 70-99 mg/dl Calcium Level 9.5 8.5-10.1 mg/dl Total Bilirubin 0.9 0.2-1 mg/dl Aspartate Amino Transf (AST/SGOT) 28 15-37 U/L Alanine Aminotransferase (ALT/SGPT) 29 12-78 U/L Alkaline Phosphatase 48 45-117 U/L Total Protein 8.0 6.4-8.2 gm/dl Albumin 3.6 3.4-5.0 gm/dl Globulin 4.4 2.5-4.0 gm/dl Albumin/Globulin Ratio 0.8 0.9-2 Influenza Type A (RT-PCR) Neg for Influ A NEG Influenza Type A Antigen Neg for Influ A NEG Influenza Type B Antigen Neg for Influ B NEG Influenza Type B (RT-PCR) Neg for Influ B NEG Bedside Lactic Acid Venous 1.28 0.90-1.70 mmol/L Microbiology Results 06/22/17 Blood Culture, Received Pending 06/22/17 Blood Culture, Received Pending Diagnostic Radiology (CHEST FOR PE) ANGIO WITH CLINICAL HISTORY: 76 years-old Male presenting with permanent atrial fibrillation, leg swelling, dyspnea, clinical concern for pulmonary embolus. TECHNIQUE: Multidetector CT angiography of the chest was performed after administration of intravenous contrast. 3-D volumetric and/or maximum intensity projection (MIP) images were subsequently reconstructed for review. IV contrast: 93 mL of Optiray 320. A dose lowering technique was used consistent with the principles of ALARA (as low as reasonably achievable). COMPARISON: 09/01/2013. CT DOSE (mGy.cm): The estimated cumulative dose is 908.21 mGy.cm. FINDINGS: [employer] topogram: Cardiomegaly. Pulmonary vasculature: The study is adequate for assessment of the pulmonary vascular tree. No filling defect within the pulmonary arteries to suggest embolus. Main pulmonary artery enlarged measuring 4.2 cm in transverse dimension. No flattening of the interventricular septum. No intracardiac filling defect. Reflux of contrast into the IVC and hepatic veins. Remaining chest: On soft tissue windows, normal thyroid. Bilateral gynecomastia. Prominent wall collateral veins Atherosclerosis of the aorta. Multichamber enlargement of the heart. Coronary artery calcification. No pericardial or pleural effusion. Cholecystectomy clips noted. 1.6 cm nodule noted in the left adrenal gland consistent with a benign adenoma by density. This is unchanged from prior exam. On lung windows, respiratory motion artifact grades evaluation at the lung bases. Allowing for this, multifocal patchy opacity primarily in the right lower lobe and minimally involving the right middle lobe and right upper lobe in a peribronchovascular distribution. Mosaic attenuation noted primarily in the right lung. Bronchial wall thickening also noted right greater than left. Large airways patent. On bone windows, degenerative changes of the spine. IMPRESSION: 1. No pulmonary embolus. 2. Patchy consolidation primarily in the right lower lobe also involving the right middle and upper lobes to a lesser degree with associated pocket wall thickening. Findings consistent with multifocal pneumonia. 3. Enlargement of the main pulmonary artery suggest pulmonary hypertension. This may be secondary to elevated left heart pressures. 4. Cardiomegaly. Electronically signed by: Mauricio Brown M.D. 06/22/2017 3:03 PM Dictated Date/Time: 06/22/2017 2:56 PM The status of this report is Signed. Draft = Not yet reviewed or approved by Radiologist. Signed = Reviewed and approved by Radiologist. ULTRASOUND BILATERAL LOWER EXTREMITY VENOUS CLINICAL HISTORY: Lower extremity edema. Dyspnea. COMPARISON STUDY: Bilateral lower extremity venous ultrasound dated 10/07/2010. TECHNIQUE: Real-time, grayscale, and color Doppler sonography of the deep veins of the right and left lower extremity was performed from the inguinal crease to the calf. Compression and augmentation were utilized. FINDINGS: There is no sonographic evidence of deep venous thrombosis identified in the right or left lower extremity. The common femoral, superficial femoral, and popliteal veins are patent and normally compressible bilaterally. The greater saphenous vein and the profunda femoris vein at the junction with the common femoral vein are clear in both legs. The visualized calf veins are patent bilaterally. IMPRESSION: There is no sonographic evidence of deep venous thrombosis identified in the right or left lower extremity. Electronically signed by: Reji Almonte M.D. 06/22/2017 2:08 PM Dictated Date/Time: 06/22/2017 2:08 PM The status of this report is Signed. Draft = Not yet reviewed or approved by Radiologist. Signed = Reviewed and approved by Radiologist. EKG MAURICIO PADILLA ID:[id number] 22-JUN-2017 17:33:20 [facility] Atrial fibrillation with premature ventricular or aberrantly conducted complexes Low voltage QRS Cannot rule out Anterior infarct (cited on or before 17-SEP-2013) Abnormal ECG When compared with ECG of 22-DEC-2016 13:27, No significant change was found 25mm/s 10mm/mV 150Hz 8.0 SP2 12SL 241 DAIANA: 3 Referred by: Saleem Gil Unconfirmed Vent. rate 64 BPM MS interval * ms QRS duration 88 ms QT/QTc 414/427 ms P-R-T axes * -15 1940 (76 yr) Male Room: Loc:15 Special Effects Specialist:PANDA Oliva ind: Impression Assessment and Plan Patient is a pleasant 75 y/o male, with PMHx of chronic a.fib, HTN, chronic diastolic CHF, gout, BPH, chronic lower extremity edema, who presented to the ED due to PNA findings on CT today. Multifocal PNA: - Admit to med/surg - IV Zosyn + Levaquin in ED; continue IV Levaquin daily - DuoNebs QID and PRN for SOB - BCx pending - Obtain sputum culture and MRSA swab - Influenza negative Chronic a.fib, HTN, chronic diastolic CHF- STABLE- follows w/ Dr. Evans: - Continue Atenolol 25 mg daily, Lasix 60 mg daily, Metolazone 5 mg MWF, KCL supplement, Xarelto 15 mg daily Chronic lower extremity edema: - Bilateral venous Doppler negative for PE - Continue Lidocaine ointment TID PRN Gout: Continue Allopurinol BPH: - Continue Flomax - Recently had prostate biopsy- continue outpatient f/u DVT prophylaxis: Xarelto Code status: LEVEL I, FULL Dispo: From home, lives w/ Resident Physician Supervision Note: I was present with Dieter DANIEL during the history and exam. I discussed the case with the PA and agree with the findings and plan as documented in the note. Any exceptions or clarifications are listed here: 76 y/o M chronic AF, chronic diastolic CHF, gout, BPH, chronic lower extremity edema, morbid obesity Progressive SOB and cough > one week - he had been off anticoagulation for a short period so that a PE was suspected. The pt was sent for a CTA which did not confirmed a PE - a multifocal PNM was seen and he was sent fro admission. OE AAO x 3 S1,2 irr Poor air movement and end exp wheezing NT, ND LE edema and cellulitic changes present - no significant warmth - pt states this is chronic P: Placed on Nebs and Levaquin - 02 protocol provided - consider steroids AM if there is no improvement with nebs alone AF - cont Atenolol, Xarelto CHF - cont Lasix, Metolazone Documented By: Blade Chaidez Level of Care Med/Surg Resuscitation Status FULL RESUSCITATION VTE Prophylaxis VTE Risk Assessment Done? Y/N: Yes Risk Level: Moderate Given or contraindicated: Other Anticoagulation
[2017-06-22] MEDS ORDERED: ALBUT/IPRATROP 3MG/0.5MG NEB 3 ML VIAL INH SCH (20:00)
[2017-06-22] MEDS ORDERED: LEVOFLOXACIN CONSULT ACTIVE PRN (20:00)
[2017-06-22] MEDS ORDERED: LEVALBUTEROL 1.25MG/3ML NEB INH PRN (20:30)
[2017-06-22 20:42] VITALS: BP 148/77; PULSE 69; TEMP 36.6; O2SAT 91
[2017-06-22 21:33] VITALS: O2SAT 93; Ht 172.7 cm; Wt 128.8 kg
[2017-06-22] MEDS: TAMSULOSIN HCL 0.4 MG CAP PO SCH (22:28)
[2017-06-22] MEDS: POTASSIUM CHLORIDE 20 MEQ TABCR PO SCH (22:29)
[2017-06-23] VITALS (8 sets, daily range): BP systolic 115–148; BP diastolic 67–81; PULSE 55–81; TEMP 36.4–36.8; O2SAT 92–97
[2017-06-23] MEDS: ALBUT/IPRATROP 3MG/0.5MG NEB 3 ML VIAL INH SCH ×4 (02:08→19:52)
[2017-06-23 07:39] LABS: HEMATOCRIT 40.3 % (42-52); HEMOGLOBIN 12.6 g/dL (14.0-18.0); MEAN CELL VOLUME 103.1 fL (80-100); MEAN CORPUSCULAR HEMOGLOBIN 32.2 pg (25-34); MEAN CORPUSCULAR HGB CONC 31.3 g/dl (32-36); NUCLEATED RED BLOOD CELL ABS 0.04 K/uL (0-0); PLATELET COUNT 141 K/uL (130-400); RED CELL DISTRIBUTION WIDTH CV 16.9 % (11.5-14.5); RED CELL DISTRIBUTION WIDTH SD 63.2 fL (36.4-46.3); WHITE BLOOD COUNT 5.44 K/uL (4.8-10.8)
[2017-06-23] MEDS: DULOXETINE HCL 60 MG CAP PO SCH (07:49)
[2017-06-23] MEDS: ALLOPURINOL 100 MG TAB PO SCH (07:49)
[2017-06-23] MEDS: POTASSIUM CHLORIDE 20 MEQ TABCR PO SCH ×3 (07:50→20:57)
[2017-06-23 08:13] LABS: CALCIUM 9.1 mg/dl (8.5-10.1); CREATININE 1.26 mg/dl (0.60-1.40)
[2017-06-23] MEDS ORDERED: FUROSEMIDE 20 MG TAB PO SCH (09:00)
[2017-06-23] MEDS ORDERED: LEVALBUTEROL 1.25MG/3ML NEB INH PRN (13:30)
[2017-06-23] MEDS: ACETAMINOPHEN 325 MG TAB PO PRN ×2 (13:43→18:45)
--- NOTE | 2017-06-23 14:23 | Progress Note ---
Subjective Date of Service: Jun 23, 2017. Subjective Pt evaluation today including: conversation w/ patient, conversation w/ family , physical exam, chart review, lab review, review of studies, conversation w/ test consultant, review of inpatient medication list Some labored breathing when talking , with yellow and thick sputum, and difficult to cough up, dyspnea on exertion, and wheezing, deny fever and chill Problem List Medical Problems: (1) Edema of left lower extremity Status: Acute (2) Multifocal pneumonia Status: Acute (3) On rivaroxaban therapy Status: Acute (4) Pancreatic abnormality Status: Acute (5) Warfarin-induced coagulopathy Status: Acute Review of Systems Constitutional: + weakness, + fatigue, No fever, No chills, No sweats, No weight loss, No problem reported Eyes: No worsening of vision, No eye pain, No redness, No discharge, No diplopia ENT: No hearing loss, No unusual epistaxis, No nasal symptoms, No sore throat, No tinnitus, No dental problems, No trouble swallowing Respiratory: + cough, + sputum, + wheezing, + shortness of breath, No dyspnea on exertion, No dyspnea at rest, No hemoptysis Cardiac: + edema, No chest pain, No orthopnea, No PND, No claudication, No palpitations Abdomen: No pain, No nausea, No vomiting, No diarrhea, No constipation Musculoskeletal: No joint pain, No muscle pain, No swelling, No calf pain Male : No dysuria, No urinary frequency, No incontinence, No nocturia more than once/night, No slowing stream, No hematuria Neurologic: No memory loss, No paralysis, No weakness, No numbness/tingling, No vertigo, No balance problems Psychiatric: No depression symptoms, No anhedonism, No anxiety, No insomnia, No substance abuse Heme: No abnormal bleeding/bruising, No clotting problems, No swollen lymph nodes, No night sweats Endo: No fatigue, No excessive thirst, No excessive urination Skin: + rash ( mild hot in bilateral lower exts), No itch, No new/changing skin lesions, No color change, No bleeding Objective Vital Signs Date Time Temp Pulse Resp B/P (MAP) Pulse Ox O2 Delivery O2 Flow Rate FiO2 06/23/17 08:20 Nasal Cannula 2.0 06/23/17 07:56 36.4 73 20 148/67 (94) 92 2.0 06/23/17 07:13 81 20 96 Nasal Cannula 2.0 06/23/17 02:08 69 14 94 Nasal Cannula 2.0 06/23/17 00:21 36.7 67 18 134/81 (98) 95 Nasal Cannula 1.5 06/23/17 00:00 Nasal Cannula 2.0 06/22/17 21:33 93 Nasal Cannula 2.0 06/22/17 20:42 36.6 69 28 148/77 (100) 91 Room Air 06/22/17 20:20 73 30 93 06/22/17 20:05 76 22 88 06/22/17 20:01 136/62 06/22/17 19:50 75 21 90 06/22/17 19:45 77 28 93 06/22/17 19:31 122/67 06/22/17 19:30 66 18 94 06/22/17 19:15 75 17 95 06/22/17 19:01 137/73 06/22/17 19:00 68 23 94 06/22/17 18:45 66 24 95 06/22/17 18:41 65 22 131/73 95 Room Air 06/22/17 17:38 61 22 113/49 94 Room Air 06/22/17 17:03 64 06/22/17 17:00 94 Room Air 06/22/17 17:00 94 Room Air 06/22/17 16:12 36.7 69 18 160/80 95 Room Air Physical Exam General Appearance: WD/WN, no apparent distress, + obese Eyes: normal inspection, PERRL, EOMI, sclerae normal ENT: normal ENT inspection, hearing grossly normal, pharynx normal Neck: supple, no adenopathy, thyroid normal, no JVD, no carotid bruits, trachea midline Respiratory/Chest: + respiratory distress, + decreased breath sounds, + crackles, + rales, + wheezing Cardiovascular: regular rate, rhythm, no gallop, no JVD, no murmur, + pertinent finding (2-3+ edema in bilateral lower extremity) Abdomen: normal bowel sounds, non tender, soft, no organomegaly, no pulsatile mass Extremities: normal range of motion, non-tender, normal inspection, no pedal edema, no calf tenderness, normal capillary refill, pelvis stable Neurologic/Psychiatric: picking supervisor II-XII nml as tested, no motor/sensory deficits, alert, normal mood/affect, oriented x 3 Skin: normal color, warm/dry, + pertinent finding (rashes in bilateral lower exts, no open wound) Lymphatic: no adenopathy Laboratory Results Last 24 Hours Test 06/22/17 17:00 06/22/17 17:03 06/22/17 17:18 06/23/17 07:24 White Blood Count 5.27 K/uL 5.44 K/uL Red Blood Count 4.01 M/uL 3.91 M/uL Hemoglobin 13.2 g/dL 12.6 g/dL Hematocrit 41.5 % 40.3 % Mean Corpuscular Volume 103.5 fL 103.1 fL Mean Corpuscular Hemoglobin 32.9 pg 32.2 pg Mean Corpuscular Hemoglobin Concent 31.8 g/dl 31.3 g/dl Platelet Count 149 K/uL 141 K/uL Mean Platelet Volume 11.1 fL 11.0 fL Neutrophils (%) (Auto) 63.7 % Lymphocytes (%) (Auto) 20.9 % Monocytes (%) (Auto) 9.5 % Eosinophils (%) (Auto) 4.9 % Basophils (%) (Auto) 0.8 % Neutrophils # (Auto) 3.36 K/uL Lymphocytes # (Auto) 1.10 K/uL Monocytes # (Auto) 0.50 K/uL Eosinophils # (Auto) 0.26 K/uL Basophils # (Auto) 0.04 K/uL RDW Standard Deviation 64.6 fL 63.2 fL RDW Coefficient of Variation 17.0 % 16.9 % Immature Granulocyte % (Auto) 0.2 % Immature Granulocyte # (Auto) 0.01 K/uL Nucleated RBC Absolute Count (auto) 0.03 K/uL 0.04 K/uL Nucleated Red Blood Cells % 0.5 % 0.7 % Prothrombin Time 12.6 SECONDS Prothromb Time International Ratio 1.2 Activated Partial Thromboplast Time 30.2 SECONDS Partial Thromboplastin Ratio 1.2 Sodium Level 139 mmol/L 139 mmol/L Potassium Level 3.7 mmol/L 4.0 mmol/L Chloride Level 100 mmol/L 102 mmol/L Carbon Dioxide Level 31 mmol/L 30 mmol/L Anion Gap 8.0 mmol/L 7.0 mmol/L Blood Urea Nitrogen 42 mg/dl 40 mg/dl Creatinine 1.24 mg/dl 1.26 mg/dl Est Creatinine Clear Calc Drug Dose 68.3 ml/min 67.2 ml/min Estimated GFR () 65.0 63.8 Estimated GFR (Non- 56.1 55.0 BUN/Creatinine Ratio 33.9 31.5 Random Glucose 101 mg/dl 105 mg/dl Calcium Level 9.5 mg/dl 9.1 mg/dl Total Bilirubin 0.9 mg/dl Aspartate Amino Transf (AST/SGOT) 28 U/L Alanine Aminotransferase (ALT/SGPT) 29 U/L Alkaline Phosphatase 48 U/L Total Protein 8.0 gm/dl Albumin 3.6 gm/dl Globulin 4.4 gm/dl Albumin/Globulin Ratio 0.8 Influenza Type A (RT-PCR) Neg for Influ A Influenza Type A Antigen Neg for Influ A Influenza Type B Antigen Neg for Influ B Influenza Type B (RT-PCR) Neg for Influ B Bedside Lactic Acid Venous 1.28 mmol/L Test 06/23/17 13:59 Assessment and Plan 75 y/o male admitted on 06/23/2017 because of multiple lobes PNA findings on CT today. Multifocal PNA: Stable improving, he got IV Zosyn + Levaquin in ED; continue IV Levaquin daily, continue , DuoNebs QID and PRN for SOB Influenza negative , follow up sputum and blood culture results, emergency room chest CT has rule out PE Chronic a.fib, HTN, chronic diastolic CHF Check echocardiogram, follows w/ Dr. Evans: Continue Atenolol 25 mg daily, Metolazone 5 mg MWF, KCL supplement, Xarelto 15 mg daily May increase Nasonex to 40 twice a day cause a combined bilateral lower extremity edema Possible bilateral lower extremity mild cellulitis with some skin rash and mild hot with hx of chronic lower extremity edema, Currently on antibiotic of Levaquin will cover this condition Bilateral venous Doppler negative for PE Continue Lidocaine ointment TID PRN Raise bilateral lower extremity whenever have chances Gout: BPH: We will continue current medication, Recently had prostate biopsy- continue outpatient f/u DVT prophylaxis: Xarelto Code status: LEVEL I, FULL Dispo: From home, lives w/ [facility]ued [facility] stay due to: multiple IV medications needed Discharge planning: home
[2017-06-23] MEDS: LEVOFLOXACIN / D5W 750 MG in PREMIXED IN D5W 150 ML IV SCH (18:00)
[2017-06-23] MEDS: FUROSEMIDE 40 MG TAB PO SCH (18:01)
[2017-06-23] MEDS: RIVAROXABAN TAB 15 MG TAB PO SCH (18:02)
[2017-06-23] MEDS: GUAIFENESIN 600 MG TABCR PO SCH (20:55)
[2017-06-23] MEDS: TAMSULOSIN HCL 0.4 MG CAP PO SCH (20:56)
[2017-06-24] VITALS (9 sets, daily range): BP systolic 125–142; BP diastolic 67–77; PULSE 62–78; TEMP 36.4–36.8; O2SAT 89–97
[2017-06-24] MEDS: ALBUT/IPRATROP 3MG/0.5MG NEB 3 ML VIAL INH SCH ×4 (01:35→19:04)
[2017-06-24] MEDS: DULOXETINE HCL 60 MG CAP PO SCH (07:58)
[2017-06-24] MEDS: ALLOPURINOL 100 MG TAB PO SCH (07:59)
[2017-06-24] MEDS: FUROSEMIDE 40 MG TAB PO SCH (07:59)
[2017-06-24] MEDS: GUAIFENESIN 600 MG TABCR PO SCH ×2 (07:59→19:44)
[2017-06-24] MEDS: POTASSIUM CHLORIDE 20 MEQ TABCR PO SCH ×3 (08:00→19:44)
[2017-06-24] MEDS: METOLAZONE 5 MG TAB PO SCH (08:00)
[2017-06-24 09:28] LABS: HEMATOCRIT 38.3 % (42-52); HEMOGLOBIN 12.2 g/dL (14.0-18.0); MEAN CELL VOLUME 103.5 fL (80-100); MEAN CORPUSCULAR HGB CONC 31.9 g/dl (32-36); MEAN PLATELET VOLUME 11.6 fL (7.4-10.4); NUCLEATED RED BLOOD CELL ABS 0.04 K/uL (0-0); PLATELET COUNT 133 K/uL (130-400); RED CELL DISTRIBUTION WIDTH CV 16.9 % (11.5-14.5); RED CELL DISTRIBUTION WIDTH SD 64.7 fL (36.4-46.3); WHITE BLOOD COUNT 5.48 K/uL (4.8-10.8)
[2017-06-24 09:59] LABS: CALCIUM 8.7 mg/dl (8.5-10.1); CREATININE 1.51 mg/dl (0.60-1.40); PHOSPHORUS 3.1 mg/dl (2.5-4.9); POTASSIUM 4.5 mmol/L (3.5-5.1)
[2017-06-24] MEDS ORDERED: PERFLUTREN LIPID MICROSPHERE (DEFINITY) IV ONE (11:41)
--- NOTE | 2017-06-24 11:41 | Cardiology Consultation ---
Cardiology Consultation Date of Consultation: Jun 24, 2017. Requesting Physician: Dr. Vazquez History of Present Illness Mr. Lundberg this is a very pleasant 76-year-old man with a history of diastolic heart failure, obesity and obstructive sleep apnea, cor pulmonale with right heart failure, persistent atrial fibrillation on anticoagulation, paroxysmal nonsustained ventricular tachycardia, hypertension, stage III CKD and remote pulmonary embolism who was admitted with shortness of breath in the setting of pneumonia on CT scan. Patient is followed by Dr. Evans for his cardiac care, last seen by him in March of 2017. Cardiology consult today for help with management of his diastolic heart failure. Patient was seen by Dr. Gil's office 2 days ago with complaints shortness of breath/exertional dyspnea for the preceding 2 weeks. This was associated with productive cough, wheezing. He had also endorsed mildly increased lower extremity swelling which she attributes to sleeping in his recliner over the last several weeks due to injuring his back while exercising. Patient denies any recent chest pain, palpitations. Denies any fevers or chills. Due to symptoms and the fact that had been off his home anticoagulation recently in the setting of prostate biopsy was sent for a chest CTA which was negative for PE but showed suggestion right lobe pneumonia. Venous duplex of his lower extremities was also negative for DVT. Due to pneumonia was instructed to present to the ED. Since being here has been treated with broad-spectrum antibiotics, now on Levaquin. Has been receiving 40 mg Lasix daily along with 1 dose of metolazone today) home regimen 60 mg Lasix daily, metolazone MWF). At present feels that breathing is still labored with exertion. Feels that lower extremity edema is near baseline. No other new symptoms. Past Medical/Surgical History Permanent atrial fibrillation, chronic diastolic heart failure, his chronic kidney disease, dyslipidemia, hypertension, morbid obesity with nocturnal hypoxia, spinal stenosis, peripheral neuropathy, pancreatic cyst, osteoarthritis status post knee replacement, urinary retention post recent prostate biopsy Family History Patient reports no known family medical history. Social History Smoking Status: Never Smoker History of Alcohol Use: No Review of Systems Respiratory: + cough, + sputum, + wheezing, + shortness of breath, No dyspnea on exertion, No dyspnea at rest, No hemoptysis Cardiac: + edema, No chest pain, No orthopnea, No PND, No claudication, No palpitations 10 point review of systems was completed and was otherwise negative unless stated in HPI Allergies Coded Allergies: No Known Allergies (Verified , 10/12/15) Medications Current Inpatient Medications Medications (Trade) Dose Ordered Sig/Guero Route Start Time Stop Time Status Last Admin Dose Admin Acetaminophen (Tylenol Tab) 650 mg Q4H PRN PO 06/22/17 19:30 07/22/17 19:29 06/23/17 18:45 650 MG Al Hydrox/Mg Hydrox/Simethicone (Maalox Max Susp) 15 ml Q4H PRN PO 06/22/17 19:30 07/22/17 19:29 Magnesium Hydroxide (Milk Of Magnesia Susp) 30 ml Q6H PRN PO 06/22/17 19:30 07/22/17 19:29 Polyethylene (Miralax Powder Packet) 17 gm DAILY PRN PO 06/22/17 19:30 07/22/17 19:29 Ondansetron HCl (Zofran Inj) 4 mg Q6H PRN IV 06/22/17 19:30 07/22/17 19:29 Levofloxacin 750 mg/Prmx 150 ml @ 100 mls/hr Q24H IV 06/23/17 18:00 06/29/17 17:59 06/23/17 18:00 100 MLS/HR Allopurinol (Zyloprim Tab) 200 mg DAILY PO 06/23/17 09:00 07/23/17 08:59 06/24/17 07:59 200 MG Atenolol (Tenormin Tab) 25 mg DAILY PO 06/23/17 09:00 07/23/17 08:59 06/24/17 08:00 25 MG Duloxetine HCl (Cymbalta Cap) 60 mg DAILY PO 06/23/17 09:00 07/23/17 08:59 06/23/17 07:49 60 MG Metolazone (Zaroxolyn Tab) 5 mg MoWeFr@0900 PO 06/24/17 09:00 07/24/17 08:59 06/24/17 08:00 5 MG Oxycodone/ Acetaminophen (Percocet 5-325mg Tab) 2 tab Q4H PRN PO 06/22/17 19:30 07/06/17 19:29 Potassium Chloride (Klor-Con Tab) 40 meq BID PO 06/22/17 21:00 07/22/17 20:59 06/24/17 08:00 40 MEQ Tamsulosin HCl (Flomax Cap) 0.4 mg QPM PO 06/22/17 21:00 07/22/17 20:59 06/23/17 20:56 0.4 MG Potassium Chloride (Klor-Con Tab) 20 meq DAILY@1200 PO 06/23/17 12:00 07/23/17 11:59 06/23/17 12:12 20 MEQ Rivaroxaban (Xarelto Tab) 15 mg QDD PO 06/23/17 17:00 07/23/17 17:59 06/23/17 18:02 15 MG Lidocaine HCl (Xylocaine Oint 5%) 1 appln TID PRN EXT 06/22/17 19:30 07/22/17 19:29 Levofloxacin (Consult) 1 ea UD PRN N/A 06/22/17 20:00 07/22/17 19:59 Albuterol/ Ipratropium (Duoneb) 3 ml Q6R INH 06/23/17 03:00 07/23/17 02:59 06/24/17 07:24 3 ML Levalbuterol (Xopenex 1.25MG/ 3ML Neb) 1.25 mg Q2H PRN INH 06/23/17 13:30 07/23/17 13:29 Guaifenesin (Mucinex Contr Rel Tab) 600 mg Q12 PO 06/23/17 21:00 07/23/17 20:59 06/24/17 07:59 600 MG Furosemide 40 mg/ Syringe 4 ml @ 4 mls/min BID17 IV 06/24/17 17:00 07/24/17 16:59 Physical Exam Vital Signs Past 12 Hours Date Time Temp Pulse Resp B/P (MAP) Pulse Ox O2 Delivery O2 Flow Rate FiO2 06/24/17 08:00 Nasal Cannula 2.0 06/24/17 07:24 78 16 97 Nasal Cannula 2.0 06/24/17 07:16 36.4 70 20 142/67 (92) 90 Room Air 2.0 Nasal Cannula 06/24/17 01:35 62 16 97 Nasal Cannula 2.0 06/24/17 00:10 Nasal Cannula 2.0 06/23/17 23:22 36.8 55 18 125/79 (94) 95 Room Air General: Comfortable, no acute distress, dyspneic with prolonged sitting up but breathing comfortably lying flat Eyes: Sclerae anicteric, extraocular movements intact HENT: Oropharynx clear, mucous membranes dry Neck: Normal carotid upstrokes, no bruits. JVD difficult to assess Lungs: Decreased air movement, scattered wheezes, few crackles over right lung field Cardiac: Distant heart sounds, irregularly irregular, no murmurs . Abdomen: Soft, nontender, nondistended, positive bowel sounds. Extremities: Well perfused, 1+ lower extremity edema right greater than left, diffuse erythema right greater than left with associated warmth Neuro: Nonfocal Psych: Alert orient x3, normal affect and mood Data Laboratory Results: Last 24 Hours Test 06/23/17 13:59 06/24/17 08:55 Pro-B-Type Natriuretic Peptide 5155 pg/ml White Blood Count 5.48 K/uL Red Blood Count 3.70 M/uL Hemoglobin 12.2 g/dL Hematocrit 38.3 % Mean Corpuscular Volume 103.5 fL Mean Corpuscular Hemoglobin 33.0 pg Mean Corpuscular Hemoglobin Concent 31.9 g/dl RDW Standard Deviation 64.7 fL RDW Coefficient of Variation 16.9 % Platelet Count 133 K/uL Mean Platelet Volume 11.6 fL Nucleated RBC Absolute Count (auto) 0.04 K/uL Nucleated Red Blood Cells % 0.6 % Sodium Level 137 mmol/L Potassium Level 4.5 mmol/L Chloride Level 102 mmol/L Carbon Dioxide Level 28 mmol/L Anion Gap 7.0 mmol/L Blood Urea Nitrogen 46 mg/dl Creatinine 1.51 mg/dl Est Creatinine Clear Calc Drug Dose 56.1 ml/min Estimated GFR () 51.3 Estimated GFR (Non- 44.2 BUN/Creatinine Ratio 30.4 Random Glucose 113 mg/dl Calcium Level 8.7 mg/dl Phosphorus Level 3.1 mg/dl Magnesium Level 2.3 mg/dl Imaging: CT chest (06/22/2017): Patchy consolidation involving right lower lobe , middle lobe and upper lobe. Enlarged pulmonary arteries suggestive of pulmonary hypertension, cardiomegaly, no PE EKG (06/22): Atrial fibrillation with occasional PVCs, nonspecific ST changes Assessment & Plan 1. Right lower lobe pneumonia 2. Heart failure with preserved ejection fraction 3. Cor pulmonale/pulmonary hypertension/right-sided heart failure 4. Chronic kidney disease 5. Persistent atrial fibrillation on Coumadin 6. Suspected reactive airway disease Mr. Lundberg was admitted with 2 weeks of exertional dyspnea in the setting pneumonia diagnosed by CT scan. He has been treated with broad-spectrum antibiotics with modest improvement in dyspnea. Difficult exam to assess volume status but in the setting of reduced diuretics during hospitalization, lower extremity edema worse than previously described, and significantly increased weight from recent clinic visits agree with increased diuresis. --received p.o. Lasix and metolazone this a.m., agree with dose of IV Lasix this evening --followed daily weights, I&Os and renal function--consider transfer to telemetry for closer monitoring --continue home atenolol and Xarelto for anticoagulation --continued antibiotics and bronchodilators for wheezing and suspected reactive airway disease Dr. Evans to resume cardiac care tomorrow and will decide regarding additional diuretics.
--- NOTE | 2017-06-24 12:15 | ECHOCARDIOGRAM REPORT ---
*NOTICE TO RECEIVING [employer] This information is strictly Confidential and protected under [place] law. [place] law prohibits you from making any further disclosure of this information unless further disclosure is expressly permitted by the written consent of the person to whom it pertains or is authorized by law. A general authorization for the release of medical or other information is not sufficient for this purpose. Hospital accepts no responsibility if the information is made available to any other person, INCLUDING THE PATIENT. Interpretation Summary * Name: BRAD PADILLA Study Date: 06/24/2017 10:42 AM BP: 115/67 mmHg * Patient Location: .[id number]\W262\S\2 HR: 57 * : 1940 (M/d/yyyy) Gender: Male Height: 67 in * Age: 76 yrs Ethnicity: [place] Weight: 299 lb * Ordering Physician: Gerald Vazquez * Referring Physician: Saleem Gil * Performed By: Val Hawkins RDCS * * Reason For Study: Edema * BSA: 2.4 m2 * -- Conclusions -- * The left ventricle is mildly dilated. * There is borderline concentric left ventricular hypertrophy. * Left ventricular systolic function is normal. * Flattened septum is consistent with RV pressure overload. * The right ventricle is mild to moderately dilated. * The left atrium is moderately dilated. * The right atrium is moderately dilated. * There is mild to moderate tricuspid regurgitation. * Right ventricular systolic pressure is elevated at >60mmHg. * The inferior vena cava is mildly dilated. * Compared to study from 2011, there appears to be less mitral regurgitation. The estimated pulmonary pressures are higher. Procedure Details * A complete two-dimensional transthoracic echocardiogram was performed (2D, M-mode, Doppler and color flow Doppler). * The study was technically difficult. * The study was technically difficult, but visualization was adequate with the administration of Definity ultrasound contrast. * There were technical limitations due to patient'sbody habitus * A contrast injection of Definity was performed to improve assessment of LV function. * Contrast was injected into an intravenous site in the right arm. * One vial of Definity ultrasound contrast was diluted in normal saline to a total volume of 10 ml. A total of '1.5' ml of solution was administered during imaging. * Lot # [id number] of Definity utilized for procedure. * Expiration date . * The attending nurse who injected the contrast agent was Kala Werner RN. Left Ventricle * The left ventricle is mildly dilated. * There is borderline concentric left ventricular hypertrophy. * Ejection Fraction = 50-55%. * Left ventricular systolic function is normal. * The left ventricular wall motion is normal. * Flattened septum is consistent with RV pressure overload. Right Ventricle * The right ventricle is mild to moderately dilated. * The right ventricle is not well visualized. Atria * The left atrium is moderately dilated. * The right atrium is moderately dilated. * There is a catheter/pacemaker lead seen in the right atrium. Mitral Valve * The mitral valve is grossly normal. * There is trace mitral regurgitation. Tricuspid Valve * The tricuspid valve is not well visualized, but is grossly normal. * There is mild to moderate tricuspid regurgitation. * Right ventricular systolic pressure is elevated at >60mmHg. Aortic Valve * The aortic valve is not well visualized. * No hemodynamically significant valvular aortic stenosis. * There is no significant aortic regurgitation. Great Vessels * The aortic root is normal size. Pericardium/Pleural * There is no pericardial effusion. Great Vessels * The inferior vena cava is mildly dilated. MMode 2D Measurements and Calculations IVSd 1.3 cm IVSs 1.6 cm LVIDd 5.8 cm LVIDs 4.4 cm LVPWd 1.2 cm LVPWs 1.7 cm IVS/LVPW 1.1 FS 24.3 % EDV(Teich) 164.8 ml ESV(Teich) 86.4 ml EF(Teich) 47.6 % EDV(cubed) 192.4 ml ESV(cubed) 83.5 ml EF(cubed) 56.6 % % IVS thick 18.5 % % LVPW thick 40.7 % LV mass(C)d 314.8 grams LV mass(C)dI 131.2 grams/m\S\2 LV mass(C)s 299.3 grams LV mass(C)sI 124.8 grams/m\S\2 SV(Teich) 78.4 ml SI(Teich) 32.7 ml/m\S\2 SV(cubed) 108.9 ml SI(cubed) 45.4 ml/m\S\2 Ao root diam 3.0 cm Ao root area 7.1 cm\S\2 ACS 1.9 cm LA dimension 4.8 cm LA/Ao 1.6 LVOT diam 1.9 cm LVOT area 2.7 cm\S\2 LVAd ap4 41.1 cm\S\2 LVLd ap4 9.0 cm EDV(MOD-sp4) 164.0 ml EDV(sp4-el) 159.0 ml LVAs ap4 29.1 cm\S\2 LVLs ap4 8.3 cm ESV(MOD-sp4) 93.9 ml ESV(sp4-el) 86.6 ml EF(MOD-sp4) 42.7 % EF(sp4-el) 45.6 % LVAd ap2 30.1 cm\S\2 LVLd ap2 7.7 cm EDV(MOD-sp2) 99.4 ml EDV(sp2-el) 99.5 ml LVAs ap2 20.2 cm\S\2 LVLs ap2 7.4 cm ESV(MOD-sp2) 50.0 ml ESV(sp2-el) 47.3 ml EF(MOD-sp2) 49.7 % EF(sp2-el) 52.5 % LVLd %diff -16.33 % EDV(MOD-bp) 136.5 ml LVLs %diff -12.46 % ESV(MOD-bp) 72.4 ml EF(MOD-bp) 46.9 % SV(MOD-sp4) 70.0 ml SI(MOD-sp4) 29.2 ml/m\S\2 SV(MOD-sp2) 49.4 ml SI(MOD-sp2) 20.6 ml/m\S\2 SV(MOD-bp) 64.0 ml SI(MOD-bp) 26.7 ml/m\S\2 SV(sp4-el) 72.4 ml SI(sp4-el) 30.2 ml/m\S\2 SV(sp2-el) 52.2 ml SI(sp2-el) 21.8 ml/m\S\2 Doppler Measurements and Calculations MV E max vee 136.9 cm/sec MV A max vee 45.9 cm/sec MV E/A 3.0 MV dec time 0.16 sec Ao V2 max 208.3 cm/sec Ao max PG 17.4 mmHg Ao max PG (full) 13.1 mmHg Ao V2 mean 117.1 cm/sec Ao mean PG 7.0 mmHg Ao mean PG (full) 5.4 mmHg Ao V2 VTI 37.4 cm CASSIA(I,A) 1.5 cm\S\2 CASSIA(I,D) 1.5 cm\S\2 CASSIA(V,A) 1.3 cm\S\2 CASSIA(V,D) 1.3 cm\S\2 LV V1 max PG 4.2 mmHg LV V1 mean PG 1.6 mmHg LV V1 max 102.5 cm/sec LV V1 mean 55.7 cm/sec LV V1 VTI 20.1 cm SV(Ao) 264.4 ml SI(Ao) 110.2 ml/m\S\2 SV(LVOT) 54.8 ml SI(LVOT) 22.8 ml/m\S\2 PA V2 max 94.2 cm/sec PA max PG 3.5 mmHg PI max vee 147.7 cm/sec PI max PG 8.7 mmHg PI dec slope 136.7 cm/sec\S\2 PI P1/2t 316.4 msec TR max vee 403.6 cm/sec
--- NOTE | 2017-06-24 12:18 | Progress Note ---
Subjective Date of Service: Jun 24, 2017. Subjective Pt evaluation today including: conversation w/ patient, conversation w/ family , physical exam, chart review, lab review, review of studies, conversation w/ identity management consultant, review of inpatient medication list Generally feeling the same, possible less difficulty breathing, has good urine output, however his drinking a lot as well, extremity still 's swelling, however is less hot or painful Problem List Medical Problems: (1) Edema of left lower extremity Status: Acute (2) Multifocal pneumonia Status: Acute (3) On rivaroxaban therapy Status: Acute (4) Pancreatic abnormality Status: Acute (5) Warfarin-induced coagulopathy Status: Acute Review of Systems Constitutional: + weakness, No fever, No chills, No sweats, No weight loss, No fatigue, No problem reported Eyes: No worsening of vision, No eye pain, No redness, No discharge, No diplopia ENT: No hearing loss, No unusual epistaxis, No nasal symptoms, No sore throat, No tinnitus, No dental problems, No trouble swallowing Respiratory: + cough, + shortness of breath, + dyspnea on exertion, No sputum, No wheezing, No dyspnea at rest, No hemoptysis Cardiac: + edema, No chest pain, No orthopnea, No PND, No claudication, No palpitations Abdomen: No pain, No nausea, No vomiting, No diarrhea, No constipation Musculoskeletal: + swelling, No joint pain, No muscle pain, No calf pain Male : No dysuria, No urinary frequency, No incontinence, No nocturia more than once/night, No slowing stream, No hematuria Neurologic: No memory loss, No paralysis, No weakness, No numbness/tingling, No vertigo, No balance problems Psychiatric: No depression symptoms, No anhedonism, No anxiety, No insomnia, No substance abuse Heme: No abnormal bleeding/bruising, No clotting problems, No swollen lymph nodes, No night sweats Endo: No fatigue, No excessive thirst, No excessive urination Skin: + rash (is better is ej lower extremities), No itch, No new/changing skin lesions, No color change, No bleeding Objective Vital Signs Date Time Temp Pulse Resp B/P (MAP) Pulse Ox O2 Delivery O2 Flow Rate FiO2 06/24/17 08:00 Nasal Cannula 2.0 06/24/17 07:24 78 16 97 Nasal Cannula 2.0 06/24/17 07:16 36.4 70 20 142/67 (92) 90 Room Air 2.0 Nasal Cannula 06/24/17 01:35 62 16 97 Nasal Cannula 2.0 06/24/17 00:10 Nasal Cannula 2.0 06/23/17 23:22 36.8 55 18 125/79 (94) 95 Room Air 06/23/17 19:52 55 16 97 Nasal Cannula 2.0 06/23/17 16:00 Nasal Cannula 2.0 06/23/17 15:10 36.8 57 18 115/67 (83) 96 2.0 06/23/17 14:16 68 16 97 Nasal Cannula 2.0 Physical Exam General Appearance: WD/WN, no apparent distress, + obese Eyes: normal inspection, PERRL, EOMI, sclerae normal ENT: normal ENT inspection, hearing grossly normal, pharynx normal Neck: supple, no adenopathy, thyroid normal, no JVD, no carotid bruits, trachea midline Respiratory/Chest: chest non-tender, normal breath sounds, no accessory muscle use, + decreased breath sounds, + wheezing (occasional) Cardiovascular: regular rate, rhythm, no edema, no gallop, no JVD, no murmur Abdomen: normal bowel sounds, non tender, soft, no organomegaly, no pulsatile mass Extremities: normal range of motion, non-tender, normal inspection, no pedal edema, no calf tenderness, normal capillary refill, pelvis stable, + swelling (2 -3+ edema) Neurologic/Psychiatric: 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6 fL Nucleated RBC Absolute Count (auto) 0.04 K/uL Nucleated Red Blood Cells % 0.6 % Sodium Level 137 mmol/L Potassium Level 4.5 mmol/L Chloride Level 102 mmol/L Carbon Dioxide Level 28 mmol/L Anion Gap 7.0 mmol/L Blood Urea Nitrogen 46 mg/dl Creatinine 1.51 mg/dl Est Creatinine Clear Calc Drug Dose 56.1 ml/min Estimated GFR () 51.3 Estimated GFR (Non- 44.2 BUN/Creatinine Ratio 30.4 Random Glucose 113 mg/dl Calcium Level 8.7 mg/dl Phosphorus Level 3.1 mg/dl Magnesium Level 2.3 mg/dl Assessment and Plan 75 y/o male admitted on 06/23/2017 because of multiple lobes PNA findings on CT today, he found possible has diastolic CHF exacerbation Multifocal PNA: Stable improving, gotIV Zosyn + Levaquin in ED; continue IV Levaquin daily, DuoNebs QID and PRN for SOB Influenza negative , follow up sputum and blood culture results, emergency room chest CT has rule out PE Possible acute on chronic diastolic CHF, with evidence of dyspnea on exertion, worsening bilateral lower extremity swelling, weight gain, and significant elevated BNP Continue Atenolol 25 mg daily, Metolazone 5 mg MWF, KCL supplement, Xarelto 15 mg daily increase lasix to 40 twice a day bilateral lower extremity edema Watch lytes and input and output, discussed with patient and family about the risk of worsening renal functions they understand and agreed, free water restriction to 1.8 L daily Possible bilateral lower extremity mild cellulitis with some skin rash and mild hot with hx of chronic lower extremity edema, improving when on Levaquin Currently on antibiotic of Levaquin for pneumonia will cover this condition Bilateral venous Doppler negative for PE Continue Lidocaine ointment TID PRN Raise bilateral lower extremity whenever have chances Gout: BPH: We will continue current medication, Recently had prostate biopsy- continue outpatient f/u DVT prophylaxis: Xarelto Code status: LEVEL I, FULL Dispo: From home, lives w/ Continued [facility] stay due to: multiple IV medications needed Discharge planning: home
[2017-06-24] MEDS: RIVAROXABAN TAB 15 MG TAB PO SCH (15:43)
[2017-06-24] MEDS: FUROSEMIDE INJ 40 MG in SYRINGE 0 ML IV SCH (15:43)
[2017-06-24] MEDS: LEVOFLOXACIN / D5W 750 MG in PREMIXED IN D5W 150 ML IV SCH (17:16)
[2017-06-24] MEDS: TAMSULOSIN HCL 0.4 MG CAP PO SCH (19:44)
[2017-06-25] VITALS (14 sets, daily range): BP systolic 107–181; BP diastolic 63–84; PULSE 59–77; TEMP 36.5–37.1; O2SAT 93–97
[2017-06-25] MEDS: ALBUT/IPRATROP 3MG/0.5MG NEB 3 ML VIAL INH SCH ×4 (02:33→19:35)
[2017-06-25 06:38] LABS: HEMATOCRIT 38.6 % (42-52); MEAN CORPUSCULAR HEMOGLOBIN 32.3 pg (25-34); MEAN CORPUSCULAR HGB CONC 31.1 g/dl (32-36); MEAN PLATELET VOLUME 10.8 fL (7.4-10.4); PLATELET COUNT 127 K/uL (130-400); RED CELL DISTRIBUTION WIDTH CV 17.1 % (11.5-14.5); RED CELL DISTRIBUTION WIDTH SD 64.3 fL (36.4-46.3)
[2017-06-25 07:13] LABS: CALCIUM 8.4 mg/dl (8.5-10.1); CREATININE 1.44 mg/dl (0.60-1.40); PHOSPHORUS 3.2 mg/dl (2.5-4.9); POTASSIUM 3.5 mmol/L (3.5-5.1)
[2017-06-25] MEDS: POTASSIUM CHLORIDE 20 MEQ TABCR PO SCH ×3 (07:55→21:28)
[2017-06-25] MEDS: FUROSEMIDE INJ 40 MG in SYRINGE 0 ML IV SCH ×2 (07:55→16:09)
[2017-06-25] MEDS: GUAIFENESIN 600 MG TABCR PO SCH ×2 (07:56→21:28)
[2017-06-25] MEDS: ALLOPURINOL 100 MG TAB PO SCH (07:56)
[2017-06-25] MEDS: DULOXETINE HCL 60 MG CAP PO SCH ×2 (07:56→08:04)
--- NOTE | 2017-06-25 09:39 | CARDIOLOGY PROGRESS NOTE ---
DATE: 06/25/2017 TIME: 9:30 a.m. SUBJECTIVE: He believes that his lower extremity swelling has improved significantly since admission. His breathing has improved. He admits that he had eaten foods higher in sodium content around New Years. He had progressively worsening lower extremity edema and shortness of breath. He has also been diagnosed with pneumonia on CT scan on 06/22/2017 with patchy consolidation in the right lower lobe also involving the right middle lobe and upper lobes consistent with multifocal pneumonia. He denies angina, syncope, near syncope, palpitations or bleeding. He is coughing up brown sputum. OBJECTIVE: VITAL SIGNS: Temperature 36.7 degrees, heart rate 77 beats per minute, respiration rate 18, blood pressure 138/81 mmHg, oxygen saturation is 93% on room air. I's and O's negative 1.9 liters yesterday. He is already negative 850 mL today. His weight is 133 kg. GENERAL: No acute distress. He is alert. NECK: Thick, cannot assess for JVD. CARDIAC EXAM: No ventricular heave, irregularly irregular, normal S1, S2. There were no audible murmurs, rubs or gallops. LUNGS: Rhonchi at the right base, otherwise clear. ABDOMEN: Soft, nontender, nondistended. Normoactive bowel sounds. EXTREMITIES: 1-2+ tense lower extremity edema in the right leg to above the knee. Trace to 1+ tense lower extremity edema in the left lower extremity. No cyanosis. PSYCHIATRIC: Affect appears appropriate. MEDICATIONS: Include atenolol 25 mg p.o. daily, Lasix 40 mg IV b.i.d., levofloxacin 750 mg IV q. 24 hours, Zaroxolyn 5 mg every Thursday, Thursday, Thursday; potassium chloride 40 mEq p.o. b.i.d. and also another 20 mEq daily at noon, Xarelto 15 mg daily. LABORATORY DATA: White blood cell count 6.6, hemoglobin 12, platelets 127. Sodium 138, potassium 3.5, BUN 42, creatinine 1.44, magnesium 2.1. ProBNP 5155. CT scan of the chest report reviewed. Venous Doppler report from 06/22/2017 reviewed. No DVT bilateral lower extremities. Telemetry personally reviewed. Atrial fibrillation. Echocardiogram report from 06/24/2017 personally reviewed. Mildly dilated left ventricle with normal systolic function. EF 50-55%. Flattened septum consistent with RV pressure overload per report. Right ventricle appeared mildly to moderately dilated. Mild to moderate TR. RVSP greater than 60. Moderate biatrial dilation. Dilated IVC. ECG on presentation personally reviewed. Atrial fibrillation at 64 beats per minute with PVCs or aberrantly conducted complexes. ASSESSMENT AND PLAN: 1. Acute on chronic diastolic congestive heart failure/cor pulmonale: He is hypervolemic. He apparently is improving with diuretics. He is diuresing quite nicely on current regimen. Continue current regimen for now. At home he takes 60 mg of Lasix daily with metolazone on Thursday, Thursday, Thursday. Continue intravenous Lasix. Continue low sodium diet, strict I's and O's and daily weights. 2. Pneumonia: As per primary service. 3. Atrial fibrillation: He is well rate controlled on atenolol 25 mg daily. Continue beta sudhir. Continue anticoagulation for stroke risk reduction. 4. Pulmonary hypertension: He has chronic pulmonary hypertension, some of which may be secondary to left heart failure. Cardiac catheterization in 2011 identified a mildly to moderately elevated pulmonary capillary wedge pressure with a pulmonary pressure of 62/18. Echo 2014 had improved RVSP at 49 mmHg, but still elevated. In part, it is likely that his significantly elevated right ventricular systolic pressure is now due to hypervolemia. This should improve with diuresis. 5. Disposition: Cardiology will continue to follow, but I will be out of the hospital for the next 3 days. Cardiology Светлана Cortez PA-C, will see him tomorrow in followup. Please call with any other questions or concerns.
[2017-06-25] MEDS: ACETAMINOPHEN 325 MG TAB PO PRN ×2 (10:57→22:05)
--- NOTE | 2017-06-25 12:45 | Progress Note ---
Subjective Date of Service: Jun 25, 2017. Subjective Pt evaluation today including: conversation w/ patient, conversation w/ family , physical exam, chart review, lab review, review of studies, conversation w/ sec reporting consultant, review of inpatient medication list Voiding: gar catheter in place Has good diuretic, good urine output, still have cough and sometimes wheezing, generally feeling better, deny fever and chill, deny chest pain Problem List Medical Problems: (1) Edema of left lower extremity Status: Acute (2) Multifocal pneumonia Status: Acute (3) On rivaroxaban therapy Status: Acute (4) Pancreatic abnormality Status: Acute (5) Warfarin-induced coagulopathy Status: Acute Review of Systems Constitutional: No fever, No chills, No sweats, No weight loss, No weakness, No fatigue, No problem reported Eyes: No worsening of vision, No eye pain, No redness, No discharge, No diplopia ENT: No hearing loss, No unusual epistaxis, No nasal symptoms, No sore throat, No tinnitus, No dental problems, No trouble swallowing Respiratory: + cough, + wheezing, + shortness of breath, + dyspnea on exertion , No sputum, No hemoptysis Cardiac: + edema, No chest pain, No orthopnea, No PND, No claudication, No palpitations Abdomen: No pain, No nausea, No vomiting, No diarrhea, No constipation Musculoskeletal: + swelling, No joint pain, No muscle pain, No calf pain Male : No dysuria, No urinary frequency, No incontinence, No nocturia more than once/night, No slowing stream, No hematuria Neurologic: No memory loss, No paralysis, No weakness, No numbness/tingling, No vertigo, No balance problems Psychiatric: No depression symptoms, No anhedonism, No anxiety, No insomnia, No substance abuse Heme: No abnormal bleeding/bruising, No clotting problems, No swollen lymph nodes, No night sweats Endo: + fatigue, No excessive thirst, No excessive urination Skin: + problem reported (no lower extremity swelling and hot is much), No rash , No itch, No new/changing skin lesions, No color change, No bleeding Objective Vital Signs Date Time Temp Pulse Resp B/P (MAP) Pulse Ox O2 Delivery O2 Flow Rate FiO2 06/25/17 11:25 37.0 64 18 124/70 (88) 95 Room Air 06/25/17 08:00 Nasal Cannula 2.0 06/25/17 07:29 36.7 77 18 138/81 (100) 93 Room Air 06/25/17 07:19 69 18 97 Nasal Cannula 2.0 06/25/17 04:00 Nasal Cannula 2.0 06/25/17 03:34 36.8 71 16 121/68 (85) 94 06/25/17 02:02 69 18 95 Nasal Cannula 2.0 06/25/17 00:11 36.5 70 18 124/70 (88) 95 06/25/17 00:00 Nasal Cannula 2.0 06/24/17 20:22 89 Room Air 06/24/17 20:22 95 Nasal Cannula 2.0 06/24/17 20:00 Nasal Cannula 2.0 06/24/17 19:32 36.8 75 18 125/74 (91) 90 Room Air 06/24/17 19:04 65 18 96 Nasal Cannula 2.0 06/24/17 14:37 Nasal Cannula 2.0 06/24/17 14:37 36.6 62 24 129/77 (94) 96 Nasal Cannula 2.0 06/24/17 14:34 73 18 96 Nasal Cannula 2.0 06/24/17 14:08 36.4 78 16 97 2.0 Physical Exam General Appearance: WD/WN, no apparent distress, + obese Eyes: normal inspection, PERRL, EOMI, sclerae normal ENT: normal ENT inspection, hearing grossly normal, pharynx normal Neck: supple, no adenopathy, thyroid normal, no JVD, no carotid bruits, trachea midline Respiratory/Chest: chest non-tender, normal breath sounds, no respiratory distress, no accessory muscle use, + decreased breath sounds, + wheezing Cardiovascular: regular rate, rhythm, no gallop, no JVD, no murmur, + pertinent finding (3+ edema improved to 2+ edema,) Abdomen: normal bowel sounds, non tender, soft, no organomegaly, no pulsatile mass Extremities: normal range of motion, non-tender, normal inspection, no pedal edema, no calf tenderness, normal capillary refill, pelvis stable 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, no motor/sensory deficits, alert, normal mood/affect, oriented x 3 Skin: normal color, warm/dry, no rash Lymphatic: no adenopathy Laboratory Results Last 24 Hours Test 06/25/17 06:12 White Blood Count 6.60 K/uL Red Blood Count 3.71 M/uL Hemoglobin 12.0 g/dL Hematocrit 38.6 % Mean Corpuscular Volume 104.0 fL Mean Corpuscular Hemoglobin 32.3 pg Mean Corpuscular Hemoglobin Concent 31.1 g/dl RDW Standard Deviation 64.3 fL RDW Coefficient of Variation 17.1 % Platelet Count 127 K/uL Mean Platelet Volume 10.8 fL Sodium Level 138 mmol/L Potassium Level 3.5 mmol/L Chloride Level 101 mmol/L Carbon Dioxide Level 31 mmol/L Anion Gap 6.0 mmol/L Blood Urea Nitrogen 42 mg/dl Creatinine 1.44 mg/dl Est Creatinine Clear Calc Drug Dose 58.2 ml/min Estimated GFR () 54.3 Estimated GFR (Non- 46.8 BUN/Creatinine Ratio 29.4 Random Glucose 108 mg/dl Calcium Level 8.4 mg/dl Phosphorus Level 3.2 mg/dl Magnesium Level 2.1 mg/dl Assessment and Plan 75 y/o male admitted on 06/23/2017 because of multiple lobes PNA findings on CT today, he found possible has diastolic CHF exacerbation Multifocal PNA: Stable improving, got IV Zosyn + Levaquin in ED; continue IV Levaquin daily, DuoNebs QID and PRN for SOB, Mucinex for the cough , Influenza negative , so for sputum and blood culture negative emergency room chest CT has rule out PE acute on chronic diastolic CHF exacerbation with significant fluid overload, with evidence of dyspnea on exertion, worsening bilateral lower extremity swelling, weight gain, and significant elevated BNP Continue Atenolol 25 mg daily, Metolazone 5 mg MWF, KCL supplement, Xarelto 15 mg daily increase lasix to 40 twice a day bilateral lower extremity edema Watch lytes and input and output, discussed with patient and family about the risk of worsening renal functions they understand and agreed, free water restriction to 1.5 L daily Has been tolerating well and weight lost, we'll continue, discussed with cardiology and patient about a care plan, they agreed to taking the risk of in case worsening renal function Possible bilateral lower extremity mild cellulitis with some skin rash and mild hot with hx of chronic lower extremity edema, Continue improving when on Levaquin Currently on antibiotic of Levaquin for pneumonia will cover this condition Bilateral venous Doppler negative for DVT Continue Lidocaine ointment TID PRN Raise bilateral lower extremity whenever have chances Gout: BPH: We will continue current medication, Recently had prostate biopsy- continue outpatient f/u DVT prophylaxis: Xarelto Code status: LEVEL I, FULL Dispo: From home, lives w/ Continued [facility] stay due to: multiple IV medications needed Discharge planning: home
[2017-06-25] MEDS: RIVAROXABAN TAB 15 MG TAB PO SCH (16:09)
[2017-06-25] MEDS: LEVOFLOXACIN 750 MG TAB PO SCH (19:23)
[2017-06-25] MEDS: TAMSULOSIN HCL 0.4 MG CAP PO SCH (21:27)
[2017-06-26] VITALS (11 sets, daily range): BP systolic 110–134; BP diastolic 63–79; PULSE 55–79; TEMP 36.4–37.1; O2SAT 91–98
[2017-06-26] MEDS: ALBUT/IPRATROP 3MG/0.5MG NEB 3 ML VIAL INH SCH ×4 (01:48→19:52)
[2017-06-26 06:54] LABS: INR 1.6 (0.9-1.1)
[2017-06-26 07:17] LABS: CALCIUM 8.5 mg/dl (8.5-10.1); CREATININE 1.64 mg/dl (0.60-1.40); PHOSPHORUS 3.1 mg/dl (2.5-4.9); POTASSIUM 3.4 mmol/L (3.5-5.1)
[2017-06-26] MEDS: ALLOPURINOL 100 MG TAB PO SCH (07:55)
[2017-06-26] MEDS: METOLAZONE 5 MG TAB PO SCH (07:55)
[2017-06-26] MEDS: GUAIFENESIN 600 MG TABCR PO SCH ×2 (07:56→20:04)
[2017-06-26] MEDS: POTASSIUM CHLORIDE 20 MEQ TABCR PO SCH ×3 (07:56→20:04)
[2017-06-26] MEDS: FUROSEMIDE INJ 40 MG in SYRINGE 0 ML IV SCH ×2 (07:56→16:59)
[2017-06-26] MEDS: DULOXETINE HCL 60 MG CAP PO SCH (07:56)
[2017-06-26] MEDS ORDERED: POTASSIUM CHLORIDE 10 MEQ TABCR PO STA (07:57)
--- NOTE | 2017-06-26 08:54 | Hospitalist Progress Note ---
Hospitalist Progress Note Date of Service Jun 26, 2017. Subjective Pt evaluation today including: conversation w/ patient, physical exam, chart review, lab review, review of studies Pain: None PO Intake: Good Voiding: gar catheter in place The patient was seen and examined this morning. Pt reports doing well today, he has no acute complains regarding shortness of breath. He is on 2 L of O2 and feels well. He has been up ambulating about the halls without difficulty, using the walker. Pt reports swelling is improved in his lower legs. He has no other acute complaints. ROS: no cp, sob at rest, no abd pain, n/v/d/c, no fever, chills, sweats. All other ROS negative. Objective Vital Signs Date Time Temp Pulse Resp B/P (MAP) Pulse Ox O2 Delivery O2 Flow Rate FiO2 06/26/17 07:38 36.4 72 18 115/69 (84) 94 2.0 06/26/17 07:04 73 18 93 Nasal Cannula 2.0 06/26/17 04:00 Nasal Cannula 2.0 06/26/17 03:00 36.4 69 22 122/67 (85) 92 Nasal Cannula 2.0 06/26/17 01:48 79 18 96 Nasal Cannula 2.0 06/26/17 00:10 Nasal Cannula 2.0 06/25/17 23:20 36.9 61 17 107/63 (78) 95 Nasal Cannula 2.0 06/25/17 20:00 96 Nasal Cannula 2.0 06/25/17 19:35 59 18 96 Nasal Cannula 2.0 06/25/17 18:48 37.1 71 19 136/73 (94) 94 Nasal Cannula 3.0 06/25/17 16:00 95 Nasal Cannula 2.0 06/25/17 15:09 36.7 70 18 115/63 (80) 95 Nasal Cannula 2.0 06/25/17 14:29 69 18 95 Nasal Cannula 2.0 06/25/17 12:00 Nasal Cannula 2.0 06/25/17 11:25 37.0 64 18 124/70 (88) 95 Room Air Physical Exam General Appearance: WD/WN, no apparent distress, + pertinent finding (morbidly obese) Eyes: PERRL, EOMI ENT: hearing grossly normal, pharynx normal Neck: supple Respiratory/Chest: chest non-tender, no respiratory distress, no accessory muscle use, + pertinent finding (on 2 L via NC, R sided rhonchi throughout, good aeration throughout the left.) Cardiovascular: + systolic murmur, + irregularly irregular (rate controlled), + pertinent finding (JVD difficult to assess due to body habitus) Abdomen: normal bowel sounds, non tender, soft Extremities: non-tender, no calf tenderness, + pedal edema (2+ BLE, R> L, + chronic venous stasis changes.) Neurologic/Psychiatric: alert, normal mood/affect, oriented x 3 Skin: normal color, warm/dry Laboratory Results Last 24 Hours Test 06/26/17 06:09 Prothrombin Time 16.2 SECONDS Prothromb Time International Ratio 1.6 Sodium Level 139 mmol/L Potassium Level 3.4 mmol/L Chloride Level 100 mmol/L Carbon Dioxide Level 33 mmol/L Anion Gap 7.0 mmol/L Blood Urea Nitrogen 49 mg/dl Creatinine 1.64 mg/dl Est Creatinine Clear Calc Drug Dose 50.7 ml/min Estimated GFR () 46.4 Estimated GFR (Non- 40.0 BUN/Creatinine Ratio 29.7 Random Glucose 108 mg/dl Calcium Level 8.5 mg/dl Phosphorus Level 3.1 mg/dl Magnesium Level 2.2 mg/dl Assessment and Plan 76 y/o male admitted on 06/23/2017 because of multiple lobes PNA findings on CT today, he found possible has diastolic CHF exacerbation Multifocal PNA: Stable improving, got IV Zosyn + Levaquin in ED; - Levaquin switched to PO, DuoNebs QID and PRN for SOB, Mucinex for the cough - Influenza negative, neg sputum culture and BCx - CT for PE negative. Acute on chronic diastolic CHF exacerbation with significant fluid overload, with evidence of dyspnea on exertion, worsening bilateral lower extremity swelling, weight gain, and significant elevated BNP Likely cardiorenal syndrome with elevated Cr Chronic atrial fibrillation - Continue Atenolol 25 mg daily, Metolazone 5 mg MWF, KCL supplement, Xarelto 15 mg daily - Cont lasix 40 mg BID IV - PRP ok, given extra potassium with K=3.4 - Strict I/Os cumulative outs are ~ 2L. - free water restriction to 1.5 L daily, lower extremity edema improving per pt. - Has been tolerating well and weight lost, we'll continue to diuresis despite slightly elevated Cr- cardiology agrees to taking the risk of in case worsening renal function Possible bilateral lower extremity mild cellulitis Chronic Venous stasis changes. - no skin rash, no warmth but with chronic lower extremity edema - Continue on Levaquin as above. - Bilateral venous Doppler negative for DVT - Continue Lidocaine ointment TID PRN - Raise bilateral lower extremity as tolerated. Gout: continue allopurinol BPH: We will continue current medication, Recently had prostate biopsy- continue outpatient f/u DVT prophylaxis: Xarelto Code status: LEVEL I, FULL Dispo: From home, lives w/ , possible dc in ~ 2 days.
--- NOTE | 2017-06-26 10:00 | Cardiology Follow-Up ---
Subjective Date of Service: Jun 26, 2017. Pt evaluation today including: conversation w/ patient, physical exam, chart review, lab review, review of studies, review of inpatient medication list, conversation w/ attending History of Present Illness His breathing and edema have improved since his admission, but he feels that he is still retaining some fluid. He continues to have some lower extremity edema. He denies shortness of breath, but he has not been able to get up and walk much. He denies orthopnea or PND. He denies chest pain, palpitations, lightheadedness, or presyncope. He has diuresed a total of 2 L thus far. Labs have shown a gradual rise in his BUN and creatinine. Social History Smoking Status: Never Smoker History of Alcohol Use: No Review of Systems 10 point review of systems was completed and was otherwise negative unless stated in HPI Objective Vital Signs Past 12 Hours Date Time Temp Pulse Resp B/P (MAP) Pulse Ox O2 Delivery O2 Flow Rate FiO2 06/26/17 07:38 36.4 72 18 115/69 (84) 94 2.0 06/26/17 07:04 73 18 93 Nasal Cannula 2.0 06/26/17 04:00 Nasal Cannula 2.0 06/26/17 03:00 36.4 69 22 122/67 (85) 92 Nasal Cannula 2.0 06/26/17 01:48 79 18 96 Nasal Cannula 2.0 06/26/17 00:10 Nasal Cannula 2.0 06/25/17 23:20 36.9 61 17 107/63 (78) 95 Nasal Cannula 2.0 Last Recorded Weight-Kilograms: 131.100 Physical Exam Constitutional: Alert, oriented, in no acute distress HEENT: Head is atraumatic and normocephalic. EOMs intact. Sclera anicteric. Face is symmetric. No perioral cyanosis. Mucous membranes moist. Neck: Supple, elevated JVP Pulmonary: Normal respiratory effort, decreased breath sounds, scattered wheezes Cardiac: Irregularly irregular, normal S1 and S2, no gallops, no rubs, no murmurs Extremities: Trace to 1+ edema, R>L. Pulses 2+ and symmetric Abdomen: Normal bowel sounds, soft, non-tender, no abdominal mass palpated Skin: Diffuse erythema of the lower extremities, no rash, no skin lesions Neurological: Oriented to person, place, and time Data Laboratory Results: Last 24 Hours Test 06/26/17 06:09 Prothrombin Time 16.2 SECONDS Prothromb Time International Ratio 1.6 Sodium Level 139 mmol/L Potassium Level 3.4 mmol/L Chloride Level 100 mmol/L Carbon Dioxide Level 33 mmol/L Anion Gap 7.0 mmol/L Blood Urea Nitrogen 49 mg/dl Creatinine 1.64 mg/dl Est Creatinine Clear Calc Drug Dose 50.7 ml/min Estimated GFR () 46.4 Estimated GFR (Non- 40.0 BUN/Creatinine Ratio 29.7 Random Glucose 108 mg/dl Calcium Level 8.5 mg/dl Phosphorus Level 3.1 mg/dl Magnesium Level 2.2 mg/dl Telemetry reviewed: Atrial fibrillation with controlled ventricular response Assessment and Plan ASSESSMENT AND PLAN: 1. Acute on chronic diastolic congestive heart failure/cor pulmonale: He has improved symptomatically, but he continues to appear mildly hypervolemic. His BUN/creatinine have been slowly rising. Recommend continued IV diuretic therapy today, then switching to his usual PO Lasix tomorrow. Continue metolazone Thursday , Thursday, and Thursday. Continue low sodium diet, strict I's and O's and daily weights. 2. Pneumonia: As per primary service. 3. Atrial fibrillation: He is well rate controlled on atenolol 25 mg daily. Continue beta sudhir. Continue Xarelto for thromboembolic prophylaxis. 4. Pulmonary hypertension: He has chronic pulmonary hypertension, some of which may be secondary to left heart failure. Cardiac catheterization in 2011 identified a mildly to moderately elevated pulmonary capillary wedge pressure with a pulmonary pressure of 62/18. Echo 2013 had improved RVSP at 49 mmHg, but still elevated. In part, it is likely that his significantly elevated right ventricular systolic pressure is now due to hypervolemia. This should improve with diuresis. The patient was seen and discussed with Dr. Kennedy, and the plan was made in collaboration with him.
[2017-06-26] MEDS: LEVOFLOXACIN 750 MG TAB PO SCH (10:17)
[2017-06-26] MEDS: ACETAMINOPHEN 325 MG TAB PO PRN (15:33)
[2017-06-26] MEDS: RIVAROXABAN TAB 15 MG TAB PO SCH (16:59)
[2017-06-26] MEDS ORDERED: LEVOFLOXACIN 750 MG TAB PO SCH (18:00)
[2017-06-26] MEDS: TAMSULOSIN HCL 0.4 MG CAP PO SCH (20:05)
[2017-06-27] VITALS (10 sets, daily range): BP systolic 113–151; BP diastolic 67–84; PULSE 59–88; TEMP 36.3–36.9; O2SAT 92–98
[2017-06-27] MEDS: ALBUT/IPRATROP 3MG/0.5MG NEB 3 ML VIAL INH SCH ×4 (02:22→19:09)
[2017-06-27 08:22] LABS: CALCIUM 8.5 mg/dl (8.5-10.1); CREATININE 1.49 mg/dl (0.60-1.40); POTASSIUM 3.2 mmol/L (3.5-5.1)
[2017-06-27 08:27] LABS: PHOSPHORUS 2.9 mg/dl (2.5-4.9)
[2017-06-27] MEDS: DULOXETINE HCL 60 MG CAP PO SCH (09:00)
[2017-06-27] MEDS: POTASSIUM CHLORIDE 20 MEQ TABCR PO SCH ×3 (09:04→20:59)
[2017-06-27] MEDS: GUAIFENESIN 600 MG TABCR PO SCH ×2 (09:04→20:59)
[2017-06-27] MEDS: FUROSEMIDE INJ 40 MG in SYRINGE 0 ML IV SCH ×2 (09:04→17:07)
[2017-06-27] MEDS: ACETAMINOPHEN 325 MG TAB PO PRN ×2 (09:08→18:34)
[2017-06-27] MEDS: LEVOFLOXACIN 750 MG TAB PO SCH (11:05)
[2017-06-27] MEDS: ALLOPURINOL 100 MG TAB PO SCH (11:05)
--- NOTE | 2017-06-27 14:29 | Progress Note ---
Subjective Date of Service: Jun 27, 2017. Subjective Pt evaluation today including: conversation w/ patient, conversation w/ family , physical exam, chart review, lab review, review of studies, conversation w/ otm consultant, review of inpatient medication list Voiding: gar catheter in place Continue have 1.5 L of negative yesterday, generally feeling okay, feeling better, deny fever or chills, sob, and lower extremities swelling is much better Problem List Medical Problems: (1) Edema of left lower extremity Status: Acute (2) Multifocal pneumonia Status: Acute (3) On rivaroxaban therapy Status: Acute (4) Pancreatic abnormality Status: Acute (5) Warfarin-induced coagulopathy Status: Acute Review of Systems Constitutional: + weakness, + fatigue, No fever, No chills, No sweats, No weight loss, No problem reported Eyes: No worsening of vision, No eye pain, No redness, No discharge, No diplopia ENT: No hearing loss, No unusual epistaxis, No nasal symptoms, No sore throat, No tinnitus, No dental problems, No trouble swallowing Respiratory: No cough, No sputum, No wheezing, No shortness of breath, No dyspnea on exertion, No dyspnea at rest, No hemoptysis Cardiac: + edema (is better), No chest pain, No orthopnea, No PND, No claudication, No palpitations Abdomen: No pain, No nausea, No vomiting, No diarrhea, No constipation Musculoskeletal: + joint pain, No muscle pain, No swelling, No calf pain Male : No dysuria, No urinary frequency, No incontinence, No nocturia more than once/night, No slowing stream, No hematuria Neurologic: No memory loss, No paralysis, No weakness, No numbness/tingling, No vertigo, No balance problems Psychiatric: No depression symptoms, No anhedonism, No anxiety, No insomnia, No substance abuse Heme: No abnormal bleeding/bruising, No clotting problems, No swollen lymph nodes, No night sweats Endo: No fatigue, No excessive thirst, No excessive urination Skin: + rash, No itch, No new/changing skin lesions, No color change, No bleeding Objective Vital Signs Date Time Temp Pulse Resp B/P (MAP) Pulse Ox O2 Delivery O2 Flow Rate FiO2 06/27/17 14:14 85 16 94 Nasal Cannula 2.0 06/27/17 12:00 Nasal Cannula 2.0 06/27/17 11:42 36.5 61 20 113/71 (85) 97 Nasal Cannula 3.0 06/27/17 08:00 Nasal Cannula 2.0 06/27/17 07:32 36.7 75 22 151/84 (106) 94 Nasal Cannula 2.0 06/27/17 07:11 88 15 94 Nasal Cannula 2.0 06/27/17 04:00 Nasal Cannula 2.0 06/27/17 03:30 36.5 75 23 128/71 (90) 92 Nasal Cannula 2.0 06/26/17 23:59 96 Nasal Cannula 2.0 06/26/17 23:30 36.5 61 23 110/63 (79) 95 Nasal Cannula 3.0 06/26/17 20:02 36.4 62 18 128/78 (95) 98 Nasal Cannula 2.0 06/26/17 20:00 Nasal Cannula 2.0 06/26/17 19:52 55 18 94 Nasal Cannula 3.0 06/26/17 16:16 36.7 67 20 119/69 (86) 91 Nasal Cannula 2.0 06/26/17 16:00 Nasal Cannula 2.0 Physical Exam General Appearance: WD/WN, no apparent distress, + obese Eyes: normal inspection, PERRL, EOMI, sclerae normal ENT: normal ENT inspection, hearing grossly normal, pharynx normal Neck: supple, no adenopathy, thyroid normal, no JVD, no carotid bruits, trachea midline Respiratory/Chest: chest non-tender, normal breath sounds, no respiratory distress, no accessory muscle use, + decreased breath sounds, + pertinent finding (seems better airway movement in the now) Cardiovascular: regular rate, rhythm, no gallop, no JVD, no murmur Abdomen: normal bowel sounds, non tender, soft, no organomegaly, no pulsatile mass Extremities: normal range of motion, non-tender, normal inspection, no pedal edema, no calf tenderness, normal capillary refill, pelvis stable, + swelling (1 -2+ which is better compared 3-4+ when he was admitted) 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, no motor/sensory deficits, alert, normal mood/affect, oriented x 3 Skin: normal color, warm/dry Lymphatic: no adenopathy Laboratory Results Last 24 Hours Test 06/27/17 07:26 Sodium Level 139 mmol/L Potassium Level 3.2 mmol/L Chloride Level 99 mmol/L Carbon Dioxide Level 36 mmol/L Anion Gap 5.0 mmol/L Blood Urea Nitrogen 48 mg/dl Creatinine 1.49 mg/dl Est Creatinine Clear Calc Drug Dose 55.5 ml/min Estimated GFR () 52.1 Estimated GFR (Non- 44.9 BUN/Creatinine Ratio 31.9 Random Glucose 117 mg/dl Calcium Level 8.5 mg/dl Phosphorus Level 2.9 mg/dl Magnesium Level 2.2 mg/dl Pro-B-Type Natriuretic Peptide 5486 pg/ml Assessment and Plan 75 y/o male admitted on 06/23/2017 because of multiple lobes PNA findings on CT today, he was found diastolic CHF exacerbation, continue significant improving because of renal tolerate IV diuretic very well patient continue have negative in and out, has continue losing weight Multifocal PNA: Stable improving, got IV Zosyn + Levaquin in ED; continue IV Levaquin daily, DuoNebs QID and PRN for SOB, Mucinex for the cough , Influenza negative , so for sputum and blood culture negative emergency room chest CT has rule out PE acute on chronic diastolic CHF exacerbation with significant fluid overload, with evidence of dyspnea on exertion, worsening bilateral lower extremity swelling, weight gain, and significant elevated BNP prior to admission Continue Atenolol 25 mg daily, Metolazone 5 mg MWF, KCL supplement, Xarelto 15 mg daily increase lasix to 40, iv, twice a day Watch lytes and input and output, discussed with patient and family about the risk of worsening renal functions they understand and agreed, free water restriction to 1.5 L daily Has been tolerating well and weight lost, we'll continue, discussed with cardiology and patient about a care plan, they agreed to taking the risk of in case worsening renal function Possible bilateral lower extremity mild cellulitis with some skin rash and mild hot with hx of chronic lower extremity edema, Continue improving when on Levaquin Currently on antibiotic of Levaquin for pneumonia will cover this condition Possible CKD stage III, likely secondary to kidney congestions from CHF exacerbation, which caused decrease kidney function, GFR continue improving after diuretic, we'll continue current care Bilateral venous Doppler negative for DVT Continue Lidocaine ointment TID PRN Raise bilateral lower extremity whenever have chances Gout: BPH: continue current medication, Recently had prostate biopsy- continue outpatient f /u DVT prophylaxis: Xarelto Code status: LEVEL I, FULL Dispo: From home, lives w/ Continued [facility] stay due to: multiple IV medications needed Discharge planning: home
[2017-06-27] MEDS: RIVAROXABAN TAB 15 MG TAB PO SCH (17:08)
[2017-06-27] MEDS: TAMSULOSIN HCL 0.4 MG CAP PO SCH (20:59)
[2017-06-28] VITALS (12 sets, daily range): BP systolic 113–134; BP diastolic 66–81; PULSE 56–98; TEMP 36.4–36.9; O2SAT 62–98
[2017-06-28] MEDS: ALBUT/IPRATROP 3MG/0.5MG NEB 3 ML VIAL INH SCH ×4 (02:04→20:08)
[2017-06-28 08:08] LABS: BASO % 0.5 %; BASO ABS # 0.03 K/uL (0-0.2); EOS % 6.3 %; EOS ABS # 0.37 K/uL (0-0.5); HEMATOCRIT 39.5 % (42-52); HEMOGLOBIN 12.5 g/dL (14.0-18.0); IG# 0.01 K/uL (0.00-0.02); LYMPH % 12.8 %; LYMPH ABS # 0.75 K/uL (1.2-3.4); MEAN CELL VOLUME 104.8 fL (80-100); MEAN CORPUSCULAR HEMOGLOBIN 33.2 pg (25-34); MEAN CORPUSCULAR HGB CONC 31.6 g/dl (32-36); MONO % 13.5 %; MONO ABS # 0.79 K/uL (0.11-0.59); NEUT % 66.7 %; PLATELET COUNT 133 K/uL (130-400); RED CELL DISTRIBUTION WIDTH CV 16.9 % (11.5-14.5); RED CELL DISTRIBUTION WIDTH SD 64.4 fL (36.4-46.3); WHITE BLOOD COUNT 5.85 K/uL (4.8-10.8)
[2017-06-28 08:27] LABS: CALCIUM 8.7 mg/dl (8.5-10.1); CREATININE 1.49 mg/dl (0.60-1.40)
[2017-06-28] MEDS: FUROSEMIDE INJ 40 MG in SYRINGE 0 ML IV SCH (08:35)
[2017-06-28] MEDS: DULOXETINE HCL 60 MG CAP PO SCH (08:36)
[2017-06-28] MEDS: ALLOPURINOL 100 MG TAB PO SCH (08:36)
[2017-06-28] MEDS: POTASSIUM CHLORIDE 20 MEQ TABCR PO SCH ×3 (08:36→21:42)
[2017-06-28] MEDS: GUAIFENESIN 600 MG TABCR PO SCH ×2 (08:37→21:42)
[2017-06-28] MEDS: POTASSIUM CHLORIDE 20 MEQ TABCR PO STA ×2 (09:07→11:33)
--- NOTE | 2017-06-28 09:33 | Progress Note ---
Subjective Date of Service: Jun 28, 2017. Subjective Pt evaluation today including: conversation w/ patient, physical exam, chart review, lab review, review of studies, conversation w/ fashion consultant selling, review of inpatient medication list Right nose bleeding, history of right nose bleeding, he's on blood thinner for stroke prevention, Has some postnasal fresh blood Was packed by Cotton which does not help Problem List Medical Problems: (1) Edema of left lower extremity Status: Acute (2) Multifocal pneumonia Status: Acute (3) On rivaroxaban therapy Status: Acute (4) Pancreatic abnormality Status: Acute (5) Warfarin-induced coagulopathy Status: Acute Review of Systems Constitutional: No fever, No chills, No sweats, No weight loss, No weakness, No fatigue, No problem reported Eyes: No worsening of vision, No eye pain, No redness, No discharge, No diplopia ENT: + see HPI, + nasal symptoms, No hearing loss, No unusual epistaxis, No sore throat, No tinnitus, No dental problems, No trouble swallowing Respiratory: + shortness of breath (is in baseline), No cough, No sputum, No wheezing, No dyspnea on exertion, No dyspnea at rest, No hemoptysis Cardiac: + edema (is better), No chest pain, No orthopnea, No PND, No claudication, No palpitations Abdomen: No pain, No nausea, No vomiting, No diarrhea, No constipation Musculoskeletal: No joint pain, No muscle pain, No swelling, No calf pain Male : No dysuria, No urinary frequency, No incontinence, No nocturia more than once/night, No slowing stream, No hematuria Neurologic: No memory loss, No paralysis, No weakness, No numbness/tingling, No vertigo, No balance problems Psychiatric: No depression symptoms, No anhedonism, No anxiety, No insomnia, No substance abuse Heme: No abnormal bleeding/bruising, No clotting problems, No swollen lymph nodes, No night sweats Endo: No fatigue, No excessive thirst, No excessive urination Skin: No rash, No itch, No new/changing skin lesions, No color change, No bleeding Objective Vital Signs Date Time Temp Pulse Resp B/P (MAP) Pulse Ox O2 Delivery O2 Flow Rate FiO2 06/28/17 07:57 36.7 61 24 132/81 (98) 97 Nasal Cannula 3.0 06/28/17 07:54 86 16 72 Nasal Cannula 3.0 06/28/17 04:00 Nasal Cannula 2.0 06/28/17 03:45 36.4 61 23 119/69 (86) 97 Room Air 06/28/17 02:04 56 16 93 Nasal Cannula 2.0 06/28/17 00:02 Nasal Cannula 2.0 06/27/17 23:30 36.7 72 22 116/67 (83) 96 Nasal Cannula 2.0 06/27/17 20:00 Nasal Cannula 2.0 06/27/17 19:40 36.3 59 18 137/73 (94) 96 Room Air 06/27/17 19:09 80 16 92 Nasal Cannula 2.0 06/27/17 16:03 36.9 65 18 138/78 (98) 98 Nasal Cannula 2.0 06/27/17 16:00 Nasal Cannula 2.0 06/27/17 14:14 85 16 94 Nasal Cannula 2.0 06/27/17 12:00 Nasal Cannula 2.0 06/27/17 11:42 36.5 61 20 113/71 (85) 97 Nasal Cannula 3.0 Physical Exam General Appearance: WD/WN, no apparent distress, + obese Eyes: normal inspection, PERRL, EOMI, sclerae normal ENT: pharynx normal, + pertinent finding (right nose bleeding is packed by Vaseline gauges) Neck: supple, no adenopathy, thyroid normal, no JVD, no carotid bruits, trachea midline Respiratory/Chest: chest non-tender, normal breath sounds, no respiratory distress, no accessory muscle use, + decreased breath sounds Cardiovascular: regular rate, rhythm, no gallop, no JVD, no murmur Abdomen: normal bowel sounds, non tender, soft, no organomegaly, no pulsatile mass Extremities: normal range of motion, non-tender, normal inspection, no pedal edema, no calf tenderness, normal capillary refill, pelvis stable, + swelling (1 -2+ edema which is better) 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, no motor/sensory deficits, alert, normal mood/affect, oriented x 3 Skin: normal color, warm/dry, no rash Lymphatic: no adenopathy Laboratory Results Last 24 Hours Test 06/28/17 08:00 White Blood Count 5.85 K/uL Red Blood Count 3.77 M/uL Hemoglobin 12.5 g/dL Hematocrit 39.5 % Mean Corpuscular Volume 104.8 fL Mean Corpuscular Hemoglobin 33.2 pg Mean Corpuscular Hemoglobin Concent 31.6 g/dl Platelet Count 133 K/uL Mean Platelet Volume 10.0 fL Neutrophils (%) (Auto) 66.7 % Lymphocytes (%) (Auto) 12.8 % Monocytes (%) (Auto) 13.5 % Eosinophils (%) (Auto) 6.3 % Basophils (%) (Auto) 0.5 % Neutrophils # (Auto) 3.90 K/uL Lymphocytes # (Auto) 0.75 K/uL Monocytes # (Auto) 0.79 K/uL Eosinophils # (Auto) 0.37 K/uL Basophils # (Auto) 0.03 K/uL RDW Standard Deviation 64.4 fL RDW Coefficient of Variation 16.9 % Immature Granulocyte % (Auto) 0.2 % Immature Granulocyte # (Auto) 0.01 K/uL Sodium Level 139 mmol/L Potassium Level 3.0 mmol/L Chloride Level 98 mmol/L Carbon Dioxide Level 37 mmol/L Anion Gap 4.0 mmol/L Blood Urea Nitrogen 52 mg/dl Creatinine 1.49 mg/dl Est Creatinine Clear Calc Drug Dose 55.7 ml/min Estimated GFR () 52.1 Estimated GFR (Non- 44.9 BUN/Creatinine Ratio 34.6 Random Glucose 117 mg/dl Calcium Level 8.7 mg/dl Magnesium Level 2.2 mg/dl Assessment and Plan 75 y/o male admitted on 06/23/2017 because of multiple lobes PNA findings on CT today, he was found diastolic CHF exacerbation, continue significant improving because of renal tolerate IV diuretic very well patient continue have negative in and out, has continue losing weight Right epistaxis, is packed by Vaseline gauges, no more bleeding after packing, has hold Xarelto, discussed risk and benefit of hold this medication, which may increase the risk of stroke , I devised all the throat secretions should be spit up to follow-up in amount of blood lost from post nasal bleeding, patient is on antibiotics, possible able to remove tomorrow, we will give nasal spray keep moisture to prevent rebleeding, ENT consult if needed Multifocal PNA: Stable improving, got IV Zosyn + Levaquin in ED; continue po Levaquin daily, day 7 out of 10 days of abx, DuoNebs QID and PRN for SOB, Mucinex for the cough, Influenza negative , so for sputum and blood culture negative emergency room chest CT has rule out PE acute on chronic diastolic CHF exacerbation with significant fluid overload, with evidence of dyspnea on exertion, worsening bilateral lower extremity swelling, weight gain, and significant elevated BNP prior to admission Has been on lasix to 40, iv, twice a day, will change by mouth today Continue Atenolol 25 mg daily, Metolazone 5 mg MWF, KCL supplement, Xarelto 15 mg daily which is on hold Watch lytes and input and output, discussed with patient and family about the risk of worsening renal functions they understand and agreed, free water restriction to 1.5 L daily Has been tolerating well and weight lost, we'll continue, discussed with cardiology and patient about a care plan, they agreed to taking the risk of in case worsening renal function Has been 4-5 kg weight lost while on diuretic Possible bilateral lower extremity mild cellulitis with some skin rash and mild hot with hx of chronic lower extremity edema, Possible UTI upon admission, About poor condition is covered by Levaquin Possible CKD stage III, likely secondary to kidney congestions from CHF exacerbation, which caused decrease kidney function, GFR continue improving/ stable after diuretic, we'll continue current care Bilateral venous Doppler negative for DVT Continue Lidocaine ointment TID PRN Raise bilateral lower extremity whenever have chances Gout: BPH: continue current medication, Recently had prostate biopsy- continue outpatient f /u DVT prophylaxis: Xarelto Code status: LEVEL I, FULL Dispo: From home, lives w/ , possible discharge home tomorrow Continued [facility] stay due to: home environment unsafe for pt Discharge planning: home
[2017-06-28] MEDS: LEVOFLOXACIN 750 MG TAB PO SCH (11:32)
[2017-06-28 12:15] LABS: HEMATOCRIT 38.7 % (42-52); HEMOGLOBIN 12.3 g/dL (14.0-18.0)
[2017-06-28] MEDS: FUROSEMIDE 40 MG TAB PO SCH (16:40)
[2017-06-28] MEDS: TAMSULOSIN HCL 0.4 MG CAP PO SCH (21:42)
[2017-06-29] VITALS (11 sets, daily range): BP systolic 117–146; BP diastolic 68–84; PULSE 59–76; TEMP 36.4–36.6; O2SAT 84–98
[2017-06-29] MEDS: ALBUT/IPRATROP 3MG/0.5MG NEB 3 ML VIAL INH SCH ×4 (02:19→19:24)
[2017-06-29 06:55] LABS: BASO % 0.7 %; BASO ABS # 0.04 K/uL (0-0.2); EOS % 8.8 %; EOS ABS # 0.49 K/uL (0-0.5); HEMATOCRIT 37.3 % (42-52); HEMOGLOBIN 11.7 g/dL (14.0-18.0); IG# 0.01 K/uL (0.00-0.02); LYMPH % 15.9 %; LYMPH ABS # 0.89 K/uL (1.2-3.4); MEAN CELL VOLUME 104.5 fL (80-100); MEAN CORPUSCULAR HEMOGLOBIN 32.8 pg (25-34); MEAN CORPUSCULAR HGB CONC 31.4 g/dl (32-36); MEAN PLATELET VOLUME 10.4 fL (7.4-10.4); MONO % 16.5 %; MONO ABS # 0.92 K/uL (0.11-0.59); NEUT % 57.9 %; NEUT ABS # 3.24 K/uL (1.4-6.5); PLATELET COUNT 136 K/uL (130-400); RED CELL DISTRIBUTION WIDTH CV 16.8 % (11.5-14.5); RED CELL DISTRIBUTION WIDTH SD 64.2 fL (36.4-46.3); WHITE BLOOD COUNT 5.59 K/uL (4.8-10.8)
[2017-06-29 07:30] LABS: CALCIUM 8.8 mg/dl (8.5-10.1); CREATININE 1.31 mg/dl (0.60-1.40); POTASSIUM 3.2 mmol/L (3.5-5.1)
[2017-06-29] MEDS ORDERED: POTASSIUM CHLORIDE 10 MEQ TABCR PO ONE (08:30)
[2017-06-29] MEDS: GUAIFENESIN 600 MG TABCR PO SCH ×2 (08:54→20:36)
[2017-06-29] MEDS: DULOXETINE HCL 60 MG CAP PO SCH (08:54)
[2017-06-29] MEDS: ALLOPURINOL 100 MG TAB PO SCH (08:54)
[2017-06-29] MEDS: POTASSIUM CHLORIDE 20 MEQ TABCR PO SCH ×3 (08:55→20:36)
[2017-06-29] MEDS: RIVAROXABAN TAB 15 MG TAB PO SCH (08:56)
[2017-06-29] MEDS: FUROSEMIDE 40 MG TAB PO SCH (08:57)
[2017-06-29] MEDS: METOLAZONE 5 MG TAB PO SCH (08:57)
[2017-06-29] MEDS: LEVOFLOXACIN 750 MG TAB PO SCH (08:57)
--- NOTE | 2017-06-29 09:20 | CARDIOLOGY PROGRESS NOTE ---
DATE: 06/29/2017 TIME: 08:44 a.m. SUBJECTIVE: He feels that his breathing is much better. He has been having issues with a nosebleed from the right nostril. He is currently packed. The primary service has held anticoagulation as it was apparently a significant bleed. He believes that his edema has improved. He feels as though he is dry and would like to drink more. He denies chest pain, palpitations, syncope or near syncope. OBJECTIVE: VITAL SIGNS: Temperature 36.4 degrees, heart rate 62 beats per minute, respiratory rate 18, blood pressure 125/68 mmHg, and oxygen saturation 98% on OxyMask. I's and O's negative 1.6 liters yesterday. Weight is 129.8 kg. Net fluid balance for the hospitalization is negative 6.4 liters. GENERAL: In no acute distress. Alert and oriented. HEAD, EYES, EARS, NOSE AND THROAT: Anicteric sclerae. NECK: Thick. CARDIAC EXAM: No ventricular heave. Irregularly irregular. Normal S1 and S2. There are no audible murmurs, rubs or gallops. LUNGS: Occasional right basilar rhonchi. ABDOMEN: Obese, soft, nontender, nondistended. Normoactive bowel sounds. EXTREMITIES: 1+ bilateral lower extremity edema. No cyanosis. PSYCHIATRIC: Affect appears appropriate. MEDICATIONS: Include atenolol 25 mg daily; Lasix 40 mg p.o. b.i.d. with his last dose of IV Lasix yesterday morning; levofloxacin 750 mg p.o. daily; metolazone 5 mg every Thursday, Thursday and Thursday; potassium chloride 40 mg p.o. b.i.d., 20 mEq daily at noon, and additional 40 mg x1 today; and Xarelto, currently on hold, last dose on 06/27/2017 due to significant epistaxis. Telemetry personally reviewed. Atrial fibrillation. LABORATORY DATA: Sodium 142, potassium 3.2, BUN 53, creatinine 1.31 down from 1.49, and magnesium 2.3. WBC 5.59, hemoglobin 11.7, and platelets 136. ASSESSMENT AND PLAN: 1. Acute on chronic diastolic congestive heart failure/cor pulmonale: He is still hypervolemic compared to his baseline, but has diuresed nicely. His creatinine has improved. He has been switched to oral diuretics. Agree with 40 mg p.o. b.i.d. of Lasix for now, and current metolazone dose, which is his usual home regimen of metolazone. Close heart failure followup is being arranged through the office. Continue I's and O's, daily weights and low sodium diet. 2. Pneumonia: Treatment as per primary service. 3. Atrial fibrillation: Well rate controlled on his home dose of beta sudhir. Continue medications. Resume anticoagulation when okay from a bleeding standpoint. 4. Pulmonary hypertension: Chronic pulmonary hypertension, some of which is likely secondary to left heart failure on his most recent echo. Continue diuresis as above. 5. Disposition: Close cardiology followup is being arranged. If he does not diurese adequately on oral diuretics, would recommend restarting IV diuretics; however, he is already negative approximately 500 mL so far today. MTDD
--- NOTE | 2017-06-29 12:16 | Clinical Documentation Query ---
CLINICAL DOCUMENTATION QUERY Patient is a pleasant 75 y/o male, with PMHx of chronic a.fib, HTN, chronic diastolic CHF, gout, BPH, chronic lower extremity edema, who presented to the ED due to PNA findings on CT today. He is being treated for acute diastolic CHF with significant fluid overload. The patient's creatinine level trended up to 1.64 from a baseline of around 1.24. In your clinical opinion is this patient being managed for: ( x) Acute kidney failure, resolved ( ) Not Agree ( ) Other explanation of clinical findings (Please Explain) ( ) Unable to determine (Please Define) ( ) Need to Discuss The medical record reflects the following clinical findings, treatment, and risk factors. Clinical Indicators: As above Treatment: I&O, serial PRPs Risk Factors: Age, acute CHF, HTN Please clarify and document your clinical opinion in the progress notes and discharge summary. Terms such as "probable", "suspected", "likely", "questionable", "possible", or "still to be ruled out" are acceptable. IF IN AGREEMENT, YOU MUST DOCUMENT ABOVE DIAGNOSTIC STATEMENT IN DAILY PROGRESS NOTES AND DISCHARGE SUMMARY. This document is not part of the patient's record. Thank You, Liana Mcdonald RN [phone]
--- NOTE | 2017-06-29 14:51 | Progress Note ---
Subjective Date of Service: Jun 29, 2017. Subjective Pt evaluation today including: conversation w/ patient, conversation w/ family , physical exam, chart review, lab review, review of studies, conversation w/ surgery consultant, review of inpatient medication list No more nose bleeding after packing yesterday, no postnasal bleeding, has good urine output, deny cough, sputum, denied fever and chill, and ej lower extremities swelling continue better Problem List Medical Problems: (1) Edema of left lower extremity Status: Acute (2) Multifocal pneumonia Status: Acute (3) On rivaroxaban therapy Status: Acute (4) Pancreatic abnormality Status: Acute (5) Warfarin-induced coagulopathy Status: Acute Review of Systems Constitutional: + weight loss, + weakness, + fatigue, No fever, No chills, No sweats, No problem reported Eyes: No worsening of vision, No eye pain, No redness, No discharge, No diplopia ENT: No hearing loss, No unusual epistaxis, No nasal symptoms, No sore throat, No tinnitus, No dental problems, No trouble swallowing Respiratory: + shortness of breath, + dyspnea on exertion, No cough, No sputum , No wheezing, No dyspnea at rest, No hemoptysis Cardiac: + edema, No chest pain, No orthopnea, No PND, No claudication, No palpitations Abdomen: No pain, No nausea, No vomiting, No diarrhea, No constipation Musculoskeletal: No joint pain, No muscle pain, No swelling, No calf pain Male : No dysuria, No urinary frequency, No incontinence, No nocturia more than once/night, No slowing stream, No hematuria Neurologic: No memory loss, No paralysis, No weakness, No numbness/tingling, No vertigo, No balance problems Psychiatric: No depression symptoms, No anhedonism, No anxiety, No insomnia, No substance abuse Heme: No abnormal bleeding/bruising, No clotting problems, No swollen lymph nodes, No night sweats Endo: + fatigue, No excessive thirst, No excessive urination Skin: No rash, No itch, No new/changing skin lesions, No color change, No bleeding Objective Vital Signs Date Time Temp Pulse Resp B/P (MAP) Pulse Ox O2 Delivery O2 Flow Rate FiO2 06/29/17 14:18 70 16 84 Room Air 06/29/17 11:52 Oxymask 3.0 06/29/17 11:20 36.6 65 18 146/84 (104) 96 3.0 06/29/17 08:00 Oxymask 3.0 06/29/17 07:25 61 16 98 Mask 3.0 06/29/17 07:22 36.4 62 18 125/68 (87) 98 3.0 06/29/17 04:00 Oxymask 3.0 06/29/17 03:35 36.6 59 20 117/72 (87) 98 Nasal Cannula 3.0 06/29/17 01:55 69 16 98 Mask 3.0 06/29/17 00:02 Oxymask 3.0 06/28/17 23:35 36.6 60 22 127/77 (94) 97 Nasal Cannula 3.0 06/28/17 20:08 62 16 98 Mask 3.0 06/28/17 20:00 Oxymask 3.0 06/28/17 19:37 36.5 65 18 113/70 (84) 93 Room Air 06/28/17 16:01 36.9 71 16 134/66 (88) 96 Oxymask 3.0 06/28/17 16:00 Nasal Cannula 2.0 06/28/17 15:21 98 16 62 Mask 3.0 Physical Exam General Appearance: WD/WN, no apparent distress, + obese Eyes: normal inspection, PERRL, EOMI, sclerae normal ENT: hearing grossly normal, pharynx normal, + pertinent finding (right nose no bleeding afterremoval) Neck: supple, no adenopathy, thyroid normal, no JVD, no carotid bruits, trachea midline Respiratory/Chest: chest non-tender, normal breath sounds, no respiratory distress, no accessory muscle use, + decreased breath sounds Cardiovascular: regular rate, rhythm, no gallop, no JVD, no murmur, + pertinent finding (you have 2+ edema) Abdomen: normal bowel sounds, non tender, soft, no organomegaly, no pulsatile mass Extremities: normal range of motion, non-tender, normal inspection, no pedal edema, no calf tenderness, normal capillary refill, pelvis stable Neurologic/Psychiatric: 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, no motor/sensory deficits, alert, normal mood/affect, oriented x 3 Skin: normal color, warm/dry, no rash Lymphatic: no adenopathy Laboratory Results Last 24 Hours Test 06/29/17 06:35 White Blood Count 5.59 K/uL Red Blood Count 3.57 M/uL Hemoglobin 11.7 g/dL Hematocrit 37.3 % Mean Corpuscular Volume 104.5 fL Mean Corpuscular Hemoglobin 32.8 pg Mean Corpuscular Hemoglobin Concent 31.4 g/dl Platelet Count 136 K/uL Mean Platelet Volume 10.4 fL Neutrophils (%) (Auto) 57.9 % Lymphocytes (%) (Auto) 15.9 % Monocytes (%) (Auto) 16.5 % Eosinophils (%) (Auto) 8.8 % Basophils (%) (Auto) 0.7 % Neutrophils # (Auto) 3.24 K/uL Lymphocytes # (Auto) 0.89 K/uL Monocytes # (Auto) 0.92 K/uL Eosinophils # (Auto) 0.49 K/uL Basophils # (Auto) 0.04 K/uL RDW Standard Deviation 64.2 fL RDW Coefficient of Variation 16.8 % Immature Granulocyte % (Auto) 0.2 % Immature Granulocyte # (Auto) 0.01 K/uL Sodium Level 142 mmol/L Potassium Level 3.2 mmol/L Chloride Level 100 mmol/L Carbon Dioxide Level 38 mmol/L Anion Gap 4.0 mmol/L Blood Urea Nitrogen 53 mg/dl Creatinine 1.31 mg/dl Est Creatinine Clear Calc Drug Dose 63.1 ml/min Estimated GFR () 60.9 Estimated GFR (Non- 52.5 BUN/Creatinine Ratio 40.4 Random Glucose 118 mg/dl Calcium Level 8.8 mg/dl Magnesium Level 2.3 mg/dl Assessment and Plan 75 y/o male admitted on 06/23/2017 because of multiple lobes PNA findings on CT today, he was found diastolic CHF exacerbation, continue significant improving because of renal tolerate IV diuretic very well Right epistaxis, was packed by Vaseline gauges on June 28 2017 Packing was removed today, no bleeding, ordered erythromycin ointment no claudication 2 time a day for total 7 days Discussed about the bleeding risk after restarting of Xarelto, patient and understand and agreed to start and take the risk Multifocal PNA: Stable improving, got IV Zosyn + Levaquin in ED; continue po Levaquin daily, day 8 out of 10 days of abx, DuoNebs QID and PRN for SOB, Mucinex for the cough, Influenza negative , so for sputum and blood culture negative emergency room chest CT has rule out PE acute on chronic diastolic CHF exacerbation with significant fluid overload upon admission with evidence of dyspnea on exertion, worsening bilateral lower extremity swelling, weight gain, and significant elevated BNP Has been on lasix to 40, iv, twice a day, will change by mouth yesterday, resume IV 40 twice a day because patient was not doing well with oral Lasix per cloth finishing range back tender Continue Atenolol 25 mg daily, Metolazone 5 mg MWF, KCL supplement, Xarelto 15 mg daily which is on hold Watch lytes and input and output, discussed with patient and family about the risk of worsening renal functions they understand and agreed, free water restriction to 1.5 L daily Has been tolerating well and weight lost, Possible bilateral lower extremity mild cellulitis with some skin rash and mild hot with hx of chronic lower extremity edema, Possible UTI upon admission, Above condition is covered by Levaquin Possible CKD stage III, likely secondary to kidney congestions from CHF exacerbation, which caused decrease kidney function, GFR continue improving/ stable after diuretic, we'll continue current care Bilateral venous Doppler negative for DVT Continue Lidocaine ointment TID PRN Raise bilateral lower extremity whenever have chances Gout: BPH: continue current medication, Recently had prostate biopsy- continue outpatient f /u Had to CHF teaching, and Dr. Evans recommend CHF outpatient clinic after discharge DVT prophylaxis: Xarelto Code status: LEVEL I, FULL Dispo: From home, lives w/ , possible discharge home tomorrow Continued [facility] stay due to: multiple IV medications needed Discharge planning: home
[2017-06-29] MEDS: RIVAROXABAN 20 MG TAB PO SCH (16:50)
[2017-06-29] MEDS: FUROSEMIDE INJ 40 MG in SYRINGE 0 ML IV SCH (20:36)
[2017-06-29] MEDS: ERYTHROMYCIN OP OINT 5 MG/GM 3.5 GM TUBE OP SCH (20:36)
[2017-06-29] MEDS: TAMSULOSIN HCL 0.4 MG CAP PO SCH (20:36)
[2017-06-30] VITALS (10 sets, daily range): BP systolic 110–128; BP diastolic 65–76; PULSE 55–77; TEMP 36.3–36.8; O2SAT 88–99
[2017-06-30] MEDS: ALBUT/IPRATROP 3MG/0.5MG NEB 3 ML VIAL INH SCH ×4 (02:32→19:18)
[2017-06-30 07:51] LABS: CALCIUM 8.9 mg/dl (8.5-10.1); CREATININE 1.3 mg/dl (0.60-1.40); POTASSIUM 3.5 mmol/L (3.5-5.1)
[2017-06-30] MEDS: ERYTHROMYCIN OP OINT 5 MG/GM 3.5 GM TUBE OP SCH ×2 (07:58→19:23)
[2017-06-30] MEDS: LEVOFLOXACIN 750 MG TAB PO SCH (07:58)
[2017-06-30] MEDS: DULOXETINE HCL 60 MG CAP PO SCH (07:58)
[2017-06-30] MEDS: FUROSEMIDE INJ 40 MG in SYRINGE 0 ML IV SCH ×2 (07:58→17:11)
[2017-06-30] MEDS: GUAIFENESIN 600 MG TABCR PO SCH ×2 (07:59→19:23)
[2017-06-30] MEDS: POTASSIUM CHLORIDE 20 MEQ TABCR PO SCH ×3 (07:59→19:23)
[2017-06-30] MEDS: ALLOPURINOL 100 MG TAB PO SCH (07:59)
[2017-06-30] MEDS: ACETAMINOPHEN 325 MG TAB PO PRN ×2 (11:14→23:51)
--- NOTE | 2017-06-30 12:28 | Hospitalist Progress Note ---
Hospitalist Progress Note Date of Service Jun 30, 2017. (Linda Briscoe ., CITLALYC) Subjective Pt evaluation today including: conversation w/ patient, conversation w/ family ( at bedside ), physical exam, lab review, review of studies, review of inpatient medication list Voiding: no voiding problems Patient sitting in bedside chair. Eating and drinking OK. +SOB. Still requiring O2 supplement. +cough- sometimes bringing up dark sputum. Lower extremity edema seems significantly improved since admission. Patient denies any fever, chills, sweats, lightheadedness, dizziness, vision changes, CP, palpitations, wheezing, abdominal pain, nausea, vomiting, diarrhea , urinary symptoms, melena, numbness/tingling, weakness, muscle/joint pain, anxiety/depression, active bleeding, or new skin discoloration/changes. (Linda Briscoe ., MARÍA-C) Medications Current Inpatient Medications Medications (Trade) Dose Ordered Sig/Guero Route Start Time Stop Time Status Last Admin Dose Admin Acetaminophen (Tylenol Tab) 650 mg Q4H PRN PO 06/22/17 19:30 07/22/17 19:29 06/30/17 11:14 650 MG Al Hydrox/Mg Hydrox/Simethicone (Maalox Max Susp) 15 ml Q4H PRN PO 06/22/17 19:30 07/22/17 19:29 Magnesium Hydroxide (Milk Of Magnesia Susp) 30 ml Q6H PRN PO 06/22/17 19:30 07/22/17 19:29 Polyethylene (Miralax Powder Packet) 17 gm DAILY PRN PO 06/22/17 19:30 07/22/17 19:29 Ondansetron HCl (Zofran Inj) 4 mg Q6H PRN IV 06/22/17 19:30 07/22/17 19:29 Allopurinol (Zyloprim Tab) 200 mg DAILY PO 06/23/17 09:00 07/23/17 08:59 06/30/17 07:59 200 MG Atenolol (Tenormin Tab) 25 mg DAILY PO 06/23/17 09:00 07/23/17 08:59 06/30/17 07:58 25 MG Duloxetine HCl (Cymbalta Cap) 60 mg DAILY PO 06/23/17 09:00 07/23/17 08:59 06/30/17 07:58 60 MG Metolazone (Zaroxolyn Tab) 5 mg MoWeFr@0900 PO 06/24/17 09:00 07/24/17 08:59 06/29/17 08:57 5 MG Oxycodone/ Acetaminophen (Percocet 5-325mg Tab) 2 tab Q4H PRN PO 06/22/17 19:30 07/06/17 19:29 Potassium Chloride (Klor-Con Tab) 40 meq BID PO 06/22/17 21:00 07/22/17 20:59 06/30/17 07:59 40 MEQ Tamsulosin HCl (Flomax Cap) 0.4 mg QPM PO 06/22/17 21:00 07/22/17 20:59 06/29/17 20:36 0.4 MG Potassium Chloride (Klor-Con Tab) 20 meq DAILY@1200 PO 06/23/17 12:00 07/23/17 11:59 06/30/17 11:15 20 MEQ Lidocaine HCl (Xylocaine Oint 5%) 1 appln TID PRN EXT 06/22/17 19:30 07/22/17 19:29 Levofloxacin (Consult) 1 ea UD PRN N/A 06/22/17 20:00 07/22/17 19:59 Albuterol/ Ipratropium (Duoneb) 3 ml Q6R INH 06/23/17 03:00 07/23/17 02:59 06/30/17 07:34 3 ML Levalbuterol (Xopenex 1.25MG/ 3ML Neb) 1.25 mg Q2H PRN INH 06/23/17 13:30 07/23/17 13:29 Guaifenesin (Mucinex Contr Rel Tab) 600 mg Q12 PO 06/23/17 21:00 07/23/17 20:59 06/30/17 07:59 600 MG Levofloxacin (Levaquin Tab) 750 mg DAILY@11 PO 06/29/17 11:00 07/01/17 11:01 06/30/17 07:58 750 MG Furosemide 40 mg/ Syringe 4 ml @ 4 mls/min BID17 IV 06/29/17 21:00 07/29/17 20:59 06/30/17 07:58 4 MLS/MIN Erythromycin (Erythromycin Oph Oint) 1 appln BID OP 06/29/17 21:00 07/09/17 20:59 06/30/17 07:58 1 APPLN Rivaroxaban (Xarelto Tab) 20 mg QDD PO 06/29/17 16:45 07/29/17 16:44 06/29/17 16:50 20 MG (Linda Briscoe ., PA-C) Objective Vital Signs Date Time Temp Pulse Resp B/P (MAP) Pulse Ox O2 Delivery O2 Flow Rate FiO2 06/30/17 11:48 36.8 58 18 116/74 (88) 99 3.0 06/30/17 08:00 Oxymask 2.5 06/30/17 07:34 68 16 98 Mask 3.0 06/30/17 07:27 36.4 71 18 122/76 (91) 97 3.0 06/30/17 04:00 Oxymask 2.5 06/30/17 03:33 36.3 66 23 128/71 (90) 97 Nasal Cannula 2.5 06/30/17 02:10 77 16 98 Mask 3.0 06/30/17 00:01 Oxymask 2.5 06/29/17 23:33 36.6 76 20 123/72 (89) 91 Nasal Cannula 2.5 06/29/17 20:14 95 Oxymask 3.0 06/29/17 19:31 36.6 65 20 132/74 (93) 98 Oxymask 3.0 06/29/17 19:24 68 16 98 Mask 3.0 06/29/17 15:34 Oxymask 3.0 06/29/17 15:31 36.4 69 18 126/71 (89) 95 Oxymask 3.0 06/29/17 14:18 70 16 84 Room Air (Linda Briscoe ., PA-C) Physical Exam General Appearance: no apparent distress, + obese, + pertinent finding ( OxyMask on ) Eyes: normal inspection, PERRL ENT: hearing grossly normal Neck: supple Respiratory/Chest: no respiratory distress, no accessory muscle use, + decreased breath sounds (throughout ) Cardiovascular: + irregularly irregular (rate controlled ) Abdomen: normal bowel sounds, non tender, soft Extremities: no calf tenderness, + swelling (+2 pitting edema of bilateral lower extremities ), + pertinent finding (+chronic venous stasis changes of bilateral lower extremities ) Neurologic/Psychiatric: alert, normal mood/affect, oriented x 3 Skin: normal color, warm/dry, no rash (Linda Briscoe ., MARY) Laboratory Results Last 24 Hours Test 06/30/17 06:47 Sodium Level 141 mmol/L Potassium Level 3.5 mmol/L Chloride Level 100 mmol/L Carbon Dioxide Level 35 mmol/L Anion Gap 6.0 mmol/L Blood Urea Nitrogen 55 mg/dl Creatinine 1.30 mg/dl Est Creatinine Clear Calc Drug Dose 63.1 ml/min Estimated GFR () 61.4 Estimated GFR (Non- 53.0 BUN/Creatinine Ratio 42.1 Random Glucose 122 mg/dl Calcium Level 8.9 mg/dl Magnesium Level 2.3 mg/dl (Linda Briscoe, MARY) Assessment and Plan Patient is a pleasant 75 y/o male, with PMHx of chronic a.fib, HTN, chronic diastolic CHF, gout, BPH, chronic lower extremity edema, who presented to the ED due to PNA findings on CT today. Multifocal PNA: - Admit to med/surg - IV Zosyn + Levaquin in ED; continue IV Levaquin daily x10 days- treatment completed on 07/01 - DuoNebs QID and PRN for SOB - Mucinex 600 mg BID - BCx NGTD; MRSA negative; sputum culture negative - Influenza negative Acute on chronic diastolic CHF, pulmonary HTN: - IV Lasix 40 mg BID; Lasix 60 mg daily held - Continue Metolazone 5 mg MWF, KCL supplement - Monitor I&Os and daily weights- negative 6.9L - 1500 mL fluid restriction - ECHO reviewed Chronic a.fib, HTN- STABLE- follows w/ Dr. Evans: Continue Atenolol 25 mg daily, Xarelto 15 mg daily CKD stage III- STABLE: Follow PRP Chronic lower extremity edema: - Bilateral venous Doppler negative for PE - Continue Lidocaine ointment TID PRN - IV Lasix as above Abnormal UA: Levaquin coverage as above Gout: Continue Allopurinol BPH: - Continue Flomax - Recently had prostate biopsy- continue outpatient f/u DVT prophylaxis: Xarelto Code status: LEVEL I, FULL Dispo: From home, lives w/ - PT/OT and CM consulted- planning to return to [facility] at discharge (Linda Briscoe, MARY) Reviewed: Pt Seen/Exam by Me (Corinne Cerrato MD) History Physician [employer] Supervision Note: I interviewed and examined the patient. Discussed with MARÍA Briscoe and agree with findings and plan as documented in the note. Any exceptions or clarifications are listed here: Pt still feeling SOB, still requiring O2. Says he had a sleep study a few years back and was told he does not have JAMILA. Had a 5 beat run on VT while sleeping today. Continues to diurese. No further epistaxis Vitals and tele reviewed-Afib rafal to the 40s at times, VT 5 beats Obese, sitting in chair, some tachypnea with speaking fluent sentences without O2 on irreg irreg, no mgr +bibasilar crackles, otherwise CTAB Abd +BS, soft, NT ND Ext 2+ pitting edema nad chronic venous stasis changes with purple and brown hemosiderin deposits This patient is a 75-year-old male with a h/o chronic A-fib on Xarelto, CKD stage III, obesity, chronic diastolic CHF, pulmonary HTN, HTN, Peripheral neuropathy, IPMNs, h/o colon rupture, and spinal stenosis with gait dysfunction , who presents with acute on chronic diastolic CHF, multifocal PNA, and acute on chronic hyoxemic respiratory failure. Doppler of the LLEs neg for DVT. Has an IVC filter in place. CTA CHest neg for PE Acute on chronic diastolic CHF/Pulm HTN,Cor pulmonale -continue to diurese with IV lasix until cobol application developer rises-d/w Cardiology today -continue metolazone -changed to Low Na+ diet today -continue fluid restriction -recommend repeat testing for JAMILA as outpt after discharge Acute hypoxemic resp failure/Multifocal PNA and secodary to Acute CHF -wean supplemental O2 -finish abx -nebs -diuretics as above HTN, chronic A. fib-stable, rate controlled/NSVT--> EF normal, some VT on monitor with sleeping -Continue atenolol 25 mg daily --agree with increasing Xarelto to 20mg dose as CrCl is > 50 Macrocytosis, Anemia of acute blood loss-Macrocytosis is chronic off and on since 2009, also with borderline thrombocytopenia, but no leukopenia. B12, folate, TSH all normal previously. He does not drink any EtOH to explain macrocytosis. -May benefit from routine Hematology referral as outpt for evaluation for MDS as suggested last admission Documented By: Corinne Cerrato (Corinne Cerrato MD)
[2017-06-30] MEDS: RIVAROXABAN 20 MG TAB PO SCH (17:10)
[2017-06-30] MEDS: TAMSULOSIN HCL 0.4 MG CAP PO SCH (19:23)
[2017-07-01] VITALS (10 sets, daily range): BP systolic 106–155; BP diastolic 65–78; PULSE 57–70; TEMP 36.2–36.8; O2SAT 90–98
[2017-07-01] MEDS: ALBUT/IPRATROP 3MG/0.5MG NEB 3 ML VIAL INH SCH ×4 (02:07→19:52)
[2017-07-01 06:50] LABS: HEMATOCRIT 38.9 % (42-52); MEAN CELL VOLUME 104.6 fL (80-100); MEAN CORPUSCULAR HEMOGLOBIN 32.3 pg (25-34); MEAN CORPUSCULAR HGB CONC 30.8 g/dl (32-36); MEAN PLATELET VOLUME 10.9 fL (7.4-10.4); PLATELET COUNT 135 K/uL (130-400); RED CELL DISTRIBUTION WIDTH CV 16.5 % (11.5-14.5); RED CELL DISTRIBUTION WIDTH SD 63.1 fL (36.4-46.3); WHITE BLOOD COUNT 5.56 K/uL (4.8-10.8)
[2017-07-01 07:22] LABS: CALCIUM 9.1 mg/dl (8.5-10.1); CREATININE 1.33 mg/dl (0.60-1.40); POTASSIUM 3.4 mmol/L (3.5-5.1)
[2017-07-01] MEDS: DULOXETINE HCL 60 MG CAP PO SCH (07:45)
[2017-07-01] MEDS: ALLOPURINOL 100 MG TAB PO SCH (07:45)
[2017-07-01] MEDS: FUROSEMIDE INJ 40 MG in SYRINGE 0 ML IV SCH ×2 (07:45→16:58)
[2017-07-01] MEDS: POTASSIUM CHLORIDE 20 MEQ TABCR PO SCH ×3 (07:45→19:45)
[2017-07-01] MEDS: METOLAZONE 5 MG TAB PO SCH (07:46)
[2017-07-01] MEDS: ERYTHROMYCIN OP OINT 5 MG/GM 3.5 GM TUBE OP SCH ×2 (07:46→19:46)
[2017-07-01] MEDS: GUAIFENESIN 600 MG TABCR PO SCH ×2 (07:46→19:46)
[2017-07-01] MEDS: LEVOFLOXACIN 750 MG TAB PO SCH (11:53)
[2017-07-01] MEDS ORDERED: POTASSIUM CHLORIDE 20 MEQ TABCR PO ONE (12:00)
[2017-07-01] MEDS: POLYETHYLENE (MIRALAX) 17 GM PACK PO SCH (13:11)
--- NOTE | 2017-07-01 15:02 | Cardiology Follow-Up ---
Subjective Subjective Date of Service: Jul 01, 2017. Pt evaluation today including: conversation w/ patient, physical exam, chart review, lab review, review of studies, review of inpatient medication list Additional Details: Feeling well. Still intermittently hypoxic with movement requiring O2. Comfortable at rest. I/O - -200 yesterday Tele reviewed-- no events. Problem List Medical Problems: (1) Edema of left lower extremity Status: Acute (2) Multifocal pneumonia Status: Acute (3) On rivaroxaban therapy Status: Acute (4) Pancreatic abnormality Status: Acute (5) Warfarin-induced coagulopathy Status: Acute Review of Systems Constitutional: + fatigue Respiratory: + shortness of breath, + dyspnea on exertion Cardiac: + edema, No chest pain Abdomen: No pain, No nausea Heme: No abnormal bleeding/bruising Endo: + fatigue, No excessive thirst, No excessive urination Skin: + rash Objective Vital Signs Last Vital Signs Documentation Date Time Temp Pulse Resp B/P (MAP) Pulse Ox O2 Delivery O2 Flow Rate FiO2 07/01/17 14:19 65 16 98 Mask 2.0 07/01/17 12:56 36.8 155/77 (103) Physical Exam: General Appearance: no apparent distress, + obese, + pertinent finding ( OxyMask on ) ENT: hearing grossly normal Neck: supple Respiratory/Chest: no respiratory distress, no accessory muscle use, + crackles (few at left base; no wheezing) Cardiovascular: no murmur, + irregularly irregular (rate controlled ) Abdomen: normal bowel sounds, non tender, soft Extremities: no calf tenderness, + swelling (+1 edema and erythema to shins bilaterally of bilateral lower extremities ) Neurologic/Psychiatric: alert, normal mood/affect, oriented x 3 Skin: normal color, warm/dry, no rash Lymphatic: no adenopathy Assessment and Plan 1. Pneumonia 2. Heart failure with preserved ejection fraction 3. Cor pulmonale/pulmonary hypertension/right-sided heart failure 4. Chronic kidney disease 5. Persistent atrial fibrillation on Coumadin Down 7Kg/7.5 L since admission. Minimal pulmonary/systemic venous congestion on exam. Residual LE edema but suspect reaching intravascular euvolemia (rising BUN/ Bicarb). -- Transition back to PO diuretics today; 40mg PO BID with current metolazone regimen. -- Continue to monitor renal function/electrolytes -- Continue current atenolol and Xarelto -- Close HF clinic follow-up on discharge Continued [facility] stay due to: multiple IV medications needed Discharge planning: home Medications: Current Inpatient Medications Medications (Trade) Dose Ordered Sig/Guero Route Start Time Stop Time Status Last Admin Dose Admin Acetaminophen (Tylenol Tab) 650 mg Q4H PRN PO 06/22/17 19:30 07/22/17 19:29 06/30/17 23:51 650 MG Al Hydrox/Mg Hydrox/Simethicone (Maalox Max Susp) 15 ml Q4H PRN PO 06/22/17 19:30 07/22/17 19:29 Magnesium Hydroxide (Milk Of Magnesia Susp) 30 ml Q6H PRN PO 06/22/17 19:30 07/22/17 19:29 Polyethylene (Miralax Powder Packet) 17 gm DAILY PRN PO 06/22/17 19:30 07/22/17 19:29 Ondansetron HCl (Zofran Inj) 4 mg Q6H PRN IV 06/22/17 19:30 07/22/17 19:29 Allopurinol (Zyloprim Tab) 200 mg DAILY PO 06/23/17 09:00 07/23/17 08:59 07/01/17 07:45 200 MG Atenolol (Tenormin Tab) 25 mg DAILY PO 06/23/17 09:00 07/23/17 08:59 07/01/17 07:46 25 MG Duloxetine HCl (Cymbalta Cap) 60 mg DAILY PO 06/23/17 09:00 07/23/17 08:59 07/01/17 07:45 60 MG Metolazone (Zaroxolyn Tab) 5 mg MoWeFr@0900 PO 06/24/17 09:00 07/24/17 08:59 07/01/17 07:46 5 MG Oxycodone/ Acetaminophen (Percocet 5-325mg Tab) 2 tab Q4H PRN PO 06/22/17 19:30 07/06/17 19:29 Potassium Chloride (Klor-Con Tab) 40 meq BID PO 06/22/17 21:00 07/22/17 20:59 07/01/17 07:45 40 MEQ Tamsulosin HCl (Flomax Cap) 0.4 mg QPM PO 06/22/17 21:00 07/22/17 20:59 2/6/18 19:23 0.4 MG Potassium Chloride (Klor-Con Tab) 20 meq DAILY@1200 PO 06/23/17 12:00 07/23/17 11:59 07/01/17 11:53 20 MEQ Lidocaine HCl (Xylocaine Oint 5%) 1 appln TID PRN EXT 06/22/17 19:30 07/22/17 19:29 Albuterol/ Ipratropium (Duoneb) 3 ml Q6R INH 06/23/17 03:00 07/23/17 02:59 07/01/17 14:19 3 ML Levalbuterol (Xopenex 1.25MG/ 3ML Neb) 1.25 mg Q2H PRN INH 06/23/17 13:30 07/23/17 13:29 Guaifenesin (Mucinex Contr Rel Tab) 600 mg Q12 PO 06/23/17 21:00 07/23/17 20:59 07/01/17 07:46 600 MG Furosemide 40 mg/ Syringe 4 ml @ 4 mls/min BID17 IV 06/29/17 21:00 07/29/17 20:59 07/01/17 07:45 4 MLS/MIN Erythromycin (Erythromycin Oph Oint) 1 appln BID OP 06/29/17 21:00 07/09/17 20:59 07/01/17 07:46 1 APPLN Rivaroxaban (Xarelto Tab) 20 mg QDD PO 06/29/17 16:45 07/29/17 16:44 06/30/17 17:10 20 MG Polyethylene (Miralax Powder Packet) 17 gm DAILY PO 07/01/17 12:45 07/31/17 12:44 07/01/17 13:11 17 GM Lab Results: 07/01/17 06:19 07/01/17 06:19 Test 07/01/17 06:19 Red Blood Count 3.72 M/uL (4.7-6.1) Mean Corpuscular Volume 104.6 fL (80-100) Mean Corpuscular Hemoglobin 32.3 pg (25-34) Mean Corpuscular Hemoglobin Concent 30.8 g/dl (32-36) RDW Standard Deviation 63.1 fL (36.4-46.3) RDW Coefficient of Variation 16.5 % (11.5-14.5) Mean Platelet Volume 10.9 fL (7.4-10.4) Anion Gap 4.0 mmol/L (3-11) Est Creatinine Clear Calc Drug Dose 61.9 ml/min Estimated GFR () 59.8 Estimated GFR (Non- 51.6 BUN/Creatinine Ratio 42.1 (10-20) Calcium Level 9.1 mg/dl (8.5-10.1)
[2017-07-01] MEDS: RIVAROXABAN 20 MG TAB PO SCH (16:58)
--- NOTE | 2017-07-01 18:14 | Hospitalist Progress Note ---
Hospitalist Progress Note Date of Service Jul 01, 2017. (Linda Briscoe ., MARY) Subjective Pt evaluation today including: conversation w/ patient, physical exam, lab review, review of inpatient medication list Voiding: no voiding problems Patient resting in bed. Eating and drinking OK. Now on RA. Denies SOB. No BM in the last few days- add MiraLAX daily Patient denies any fever, chills, sweats, lightheadedness, dizziness, vision changes, CP, palpitations, edema, SOB, wheezing, cough, abdominal pain, nausea, vomiting, diarrhea, urinary symptoms, melena, numbness/tingling, weakness, muscle/joint pain, anxiety/depression, active bleeding, or new skin discoloration/changes. (Linda Briscoe ., CITLALYC) Medications Current Inpatient Medications Medications (Trade) Dose Ordered Sig/Guero Route Start Time Stop Time Status Last Admin Dose Admin Acetaminophen (Tylenol Tab) 650 mg Q4H PRN PO 06/22/17 19:30 07/22/17 19:29 06/30/17 23:51 650 MG Al Hydrox/Mg Hydrox/Simethicone (Maalox Max Susp) 15 ml Q4H PRN PO 06/22/17 19:30 07/22/17 19:29 Magnesium Hydroxide (Milk Of Magnesia Susp) 30 ml Q6H PRN PO 06/22/17 19:30 07/22/17 19:29 Polyethylene (Miralax Powder Packet) 17 gm DAILY PRN PO 06/22/17 19:30 07/22/17 19:29 Ondansetron HCl (Zofran Inj) 4 mg Q6H PRN IV 06/22/17 19:30 07/22/17 19:29 Allopurinol (Zyloprim Tab) 200 mg DAILY PO 06/23/17 09:00 07/23/17 08:59 07/01/17 07:45 200 MG Atenolol (Tenormin Tab) 25 mg DAILY PO 06/23/17 09:00 07/23/17 08:59 07/01/17 07:46 25 MG Duloxetine HCl (Cymbalta Cap) 60 mg DAILY PO 06/23/17 09:00 07/23/17 08:59 07/01/17 07:45 60 MG Metolazone (Zaroxolyn Tab) 5 mg MoWeFr@0900 PO 06/24/17 09:00 07/24/17 08:59 07/01/17 07:46 5 MG Oxycodone/ Acetaminophen (Percocet 5-325mg Tab) 2 tab Q4H PRN PO 06/22/17 19:30 07/06/17 19:29 Potassium Chloride (Klor-Con Tab) 40 meq BID PO 06/22/17 21:00 07/22/17 20:59 07/01/17 07:45 40 MEQ Tamsulosin HCl (Flomax Cap) 0.4 mg QPM PO 06/22/17 21:00 07/22/17 20:59 06/30/17 19:23 0.4 MG Potassium Chloride (Klor-Con Tab) 20 meq DAILY@1200 PO 06/23/17 12:00 07/23/17 11:59 07/01/17 11:53 20 MEQ Lidocaine HCl (Xylocaine Oint 5%) 1 appln TID PRN EXT 06/22/17 19:30 07/22/17 19:29 Levofloxacin (Consult) 1 ea UD PRN N/A 06/22/17 20:00 07/22/17 19:59 Albuterol/ Ipratropium (Duoneb) 3 ml Q6R INH 06/23/17 03:00 07/23/17 02:59 07/01/17 07:18 3 ML Levalbuterol (Xopenex 1.25MG/ 3ML Neb) 1.25 mg Q2H PRN INH 06/23/17 13:30 07/23/17 13:29 Guaifenesin (Mucinex Contr Rel Tab) 600 mg Q12 PO 06/23/17 21:00 07/23/17 20:59 07/01/17 07:46 600 MG Furosemide 40 mg/ Syringe 4 ml @ 4 mls/min BID17 IV 06/29/17 21:00 07/29/17 20:59 07/01/17 07:45 4 MLS/MIN Erythromycin (Erythromycin Oph Oint) 1 appln BID OP 06/29/17 21:00 07/09/17 20:59 07/01/17 07:46 1 APPLN Rivaroxaban (Xarelto Tab) 20 mg QDD PO 06/29/17 16:45 07/29/17 16:44 06/30/17 17:10 20 MG (Linda Briscoe PA-C) Objective Vital Signs Date Time Temp Pulse Resp B/P (MAP) Pulse Ox O2 Delivery O2 Flow Rate FiO2 07/01/17 08:00 Room Air 07/01/17 07:32 36.3 59 20 147/76 (99) 98 Nasal Cannula 2.0 07/01/17 07:18 69 16 98 Mask 2.0 07/01/17 04:52 36.4 60 23 106/65 (79) 97 Room Air 07/01/17 04:00 Room Air 2.5 Oxymask 07/01/17 02:07 57 16 95 Mask 2.0 07/01/17 00:00 Room Air 2.5 Oxymask 06/30/17 23:45 36.4 63 24 110/70 (83) 95 Nasal Cannula 3.0 06/30/17 20:00 Room Air 2.5 Oxymask 06/30/17 19:30 36.4 55 20 121/75 (90) 99 Oxymask 2.5 06/30/17 19:19 62 16 88 Room Air 06/30/17 16:00 Oxymask 2.0 06/30/17 15:17 36.5 63 22 115/65 (82) 94 Oxymask 2.0 06/30/17 14:30 57 16 99 Mask 3.0 (Linda Brisceo PA-C) Physical Exam General Appearance: no apparent distress, + obese Eyes: normal inspection, PERRL ENT: hearing grossly normal Neck: supple Respiratory/Chest: no respiratory distress, no accessory muscle use, + wheezing (mild anterior expiratory wheeze ) Cardiovascular: + irregularly irregular (rate controlled ) Abdomen: normal bowel sounds, non tender, soft Extremities: no calf tenderness, + swelling (+2 pitting edema of bilateral lower extremities ), + pertinent finding (chronic venous stasis changes to bilateral lower extremities ) Neurologic/Psychiatric: alert, normal mood/affect, oriented x 3 Skin: normal color, warm/dry, no rash (Linda Briscoe, MARÍA-C) Laboratory Results Last 24 Hours Test 07/01/17 06:19 White Blood Count 5.56 K/uL Red Blood Count 3.72 M/uL Hemoglobin 12.0 g/dL Hematocrit 38.9 % Mean Corpuscular Volume 104.6 fL Mean Corpuscular Hemoglobin 32.3 pg Mean Corpuscular Hemoglobin Concent 30.8 g/dl RDW Standard Deviation 63.1 fL RDW Coefficient of Variation 16.5 % Platelet Count 135 K/uL Mean Platelet Volume 10.9 fL Sodium Level 138 mmol/L Potassium Level 3.4 mmol/L Chloride Level 96 mmol/L Carbon Dioxide Level 38 mmol/L Anion Gap 4.0 mmol/L Blood Urea Nitrogen 56 mg/dl Creatinine 1.33 mg/dl Est Creatinine Clear Calc Drug Dose 61.9 ml/min Estimated GFR () 59.8 Estimated GFR (Non- 51.6 BUN/Creatinine Ratio 42.1 Random Glucose 120 mg/dl Calcium Level 9.1 mg/dl (Linda Briscoe, PADagobertoC) Assessment and Plan Patient is a pleasant 75 y/o male, with PMHx of chronic a.fib, HTN, chronic diastolic CHF, gout, BPH, chronic lower extremity edema, who presented to the ED due to PNA findings on CT today. Multifocal PNA: - Admit to med/surg - IV Zosyn + Levaquin in ED; continue IV Levaquin daily x10 days- treatment completed on 07/01 - DuoNebs QID and PRN for SOB - Mucinex 600 mg BID - BCx NGTD; MRSA negative; sputum culture negative - Influenza negative Acute on chronic diastolic CHF, pulmonary HTN: - IV Lasix 40 mg BID- changed to 40 mg PO BID today - Continue Metolazone 5 mg MWF, KCL supplement - Monitor I&Os and daily weights- negative 7.5L - 1500 mL fluid restriction and low sodium diet - ECHO reviewed Chronic a.fib, HTN- STABLE- follows w/ Dr. Evans: Continue Atenolol 25 mg daily, Xarelto 15 mg daily CKD stage III- STABLE: Follow PRP Chronic lower extremity edema: - Bilateral venous Doppler negative for PE - Continue Lidocaine ointment TID PRN - IV Lasix as above Abnormal UA: Levaquin coverage as above Gout: Continue Allopurinol BPH: - Continue Flomax - Recently had prostate biopsy- continue outpatient f/u DVT prophylaxis: Xarelto Code status: LEVEL I, FULL Dispo: From home, lives w/ - PT/OT and CM consulted- planning to return to [facility] at discharge (Linda Briscoe, MARY) Reviewed: Pt Seen/Exam by Me (Corinne Cerrato MD) History Physician [employer] Supervision Note: I interviewed and examined the patient. Discussed with MARÍA Briscoe and agree with findings and plan as documented in the note. Any exceptions or clarifications are listed here: Walked the halls today, still requiring O2 even at rest. BUN/cook vegetable starting to rise a bit, Cardio recommended switching to po lasix. No epistaxis. Remains in A -fib on tele with controlled rates. Continues to diurese although not as much and weight stable from previous Vitals and tele reviewed Obese, sitting in chair, NAD irreg irreg, no mgr CTAB no wcr, breathing unlabored Abd +BS, soft, NT ND Ext 1+ pitting edema and chronic venous stasis changes with purple and brown hemosiderin deposits This patient is a 75-year-old male with a h/o chronic A-fib on Xarelto, CKD stage III, obesity, chronic diastolic CHF, pulmonary HTN, HTN, Peripheral neuropathy, IPMNs, h/o colon rupture, and spinal stenosis with gait dysfunction , who presents with acute on chronic diastolic CHF, multifocal PNA, and acute on chronic hyoxemic respiratory failure. Doppler of the LLEs neg for DVT. Has an IVC filter in place. CTA Chest neg for PE Acute on chronic diastolic CHF/Pulm HTN,Cor pulmonale -continues to diurese but BUN/[employer] slight rise--> switch to po lasix higher dose than home at 40mg bid -continue metolazone MWF -recommend repeat testing for JAMILA as outpt after discharge -Needs 2-step for home O2 arranged for discharge tomorrow -f/u in CHF clinic within 2 weeks after discharge Acute hypoxemic resp failure/Multifocal PNA and secondary to Acute CHF -2- step in AM, will need home O2 -finished abx -nebs -diuretics as above HTN, chronic A. 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 B12, folate, TSH all normal previously. He does not drink any EtOH to explain macrocytosis. -May benefit from routine Hematology referral as outpt for evaluation for MDS as suggested last admission- I do not see that this has been done yet in outpatient record BPH/Prostate CA- biopsies show CA, but outpt record does not show any f/u with Urology yet. Recommend outpatient f/u with Urology to discuss further evaluation /treatment Biopsy from 06/11/17: I. PROSTATE, SIDE UNSPECIFIED, TARGET LESION X3, BIOPSY: 1. 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 2. MICHAEL PATTERN 4 COMPRISES 20% OF TUMOR PRESENT. 3. TUMOR INVOLVES ONE OF THREE TISSUE CORES. 4. TUMOR INVOLVES 10% OF A 1.2 CM CORE. 5. NO PERINEURAL INVASION IDENTIFIED. Dispo- to home with Home O2 tomorrow Documented By: Corinne Cerrato (Corinne Cerrato MD)
[2017-07-01] MEDS: TAMSULOSIN HCL 0.4 MG CAP PO SCH (19:46)
[2017-07-02] VITALS (9 sets, daily range): BP systolic 107–152; BP diastolic 62–83; PULSE 63–86; TEMP 36.4–36.7; O2SAT 94–99
[2017-07-02] MEDS: ALBUT/IPRATROP 3MG/0.5MG NEB 3 ML VIAL INH SCH ×3 (01:48→14:18)
[2017-07-02 03:09] LABS: HEMOGLOBIN 11.7 g/dL (14.0-18.0); MEAN CELL VOLUME 102.8 fL (80-100); MEAN CORPUSCULAR HEMOGLOBIN 32.5 pg (25-34); MEAN CORPUSCULAR HGB CONC 31.6 g/dl (32-36); MEAN PLATELET VOLUME 9.9 fL (7.4-10.4); PLATELET COUNT 134 K/uL (130-400); RED CELL DISTRIBUTION WIDTH CV 16.1 % (11.5-14.5); RED CELL DISTRIBUTION WIDTH SD 60.6 fL (36.4-46.3); WHITE BLOOD COUNT 6.57 K/uL (4.8-10.8)
[2017-07-02 03:25] LABS: CALCIUM 8.8 mg/dl (8.5-10.1); CREATININE 1.35 mg/dl (0.60-1.40); POTASSIUM 3.3 mmol/L (3.5-5.1)
[2017-07-02] MEDS ORDERED: POTASSIUM CHLORIDE 20 MEQ TABCR PO STA (03:47)
--- NOTE | 2017-07-02 03:56 | Progress Note ---
Progress Note Date of Service Jul 02, 2017. Progress Note Called re: 23 beat run of v tach Patient asymptomatic. Vitals WNL Checked BMP and Mg+ - Mg 2.1, K+ 3.3 Ordered 60mEq KCl tablet stat. Aware that he will receive another 40mEq at 9am Scheduled to recheck BMP at noon Advised nursing staff to hold 12pm KCl tablet until BMP results return to assess need for further supplementation based on K+ level Resident Tracking Resident Involvement: Resident Care Provided Care Provided: Adult Hospital Medicine
[2017-07-02] MEDS: GUAIFENESIN 600 MG TABCR PO SCH (08:11)
[2017-07-02] MEDS: POTASSIUM CHLORIDE 20 MEQ TABCR PO SCH ×2 (08:11→12:00)
[2017-07-02] MEDS: ERYTHROMYCIN OP OINT 5 MG/GM 3.5 GM TUBE OP SCH (08:11)
[2017-07-02] MEDS: POLYETHYLENE (MIRALAX) 17 GM PACK PO SCH (08:12)
[2017-07-02] MEDS: DULOXETINE HCL 60 MG CAP PO SCH (08:12)
[2017-07-02] MEDS: ALLOPURINOL 100 MG TAB PO SCH (08:12)
[2017-07-02] MEDS ORDERED: FUROSEMIDE 40 MG TAB PO SCH (09:00)
[2017-07-02 12:01] LABS: CALCIUM 9.3 mg/dl (8.5-10.1); CREATININE 1.37 mg/dl (0.60-1.40); POTASSIUM 4.3 mmol/L (3.5-5.1)
[2017-07-02] MEDS ORDERED: RIVA1TAB4 PO (13:45)
[2017-07-02] MEDS ORDERED: LSX40 PO (13:45)
--- NOTE | 2017-07-02 13:56 | CARDIOLOGY PROGRESS NOTE ---
DATE: 07/02/2017 TIME: 13:27 p.m. SUBJECTIVE: He has dyspnea with exertion, which improves with supplemental oxygen. He denies shortness of breath at rest or orthopnea. He denies chest pain, syncope, near syncope, or palpitations. His edema has improved. He denies any bleeding. OBJECTIVE: VITAL SIGNS: Temperature 36.7 degrees, heart rate 63 beats per minute, respiratory rate 20, and blood pressure 152/83 mmHg; however, his blood pressure has been mostly normotensive. Oxygen saturation 94% on 2 liters per nasal cannula. I's and O's negative 885 mL yesterday. Weight is 128.8 kilograms. Cumulative fluid balance for hospitalization is negative 8.6 liters. GENERAL: In no acute distress. He is alert. NECK: Thick. CARDIAC EXAM: No ventricular heave. Irregularly irregular. Normal S1 and S2. There are no audible murmurs, rubs or gallops. LUNGS: Relatively clear. ABDOMEN: Soft, nontender, and nondistended. Normoactive bowel sounds. EXTREMITIES: 1+ bilateral lower extremity edema. Chronic venous stasis changes. No cyanosis. PSYCHIATRIC: Affect appears appropriate. MEDICATIONS: Include, 1. Lasix 40 mg p.o. b.i.d. 2. Atenolol 25 mg daily. 3. Metolazone 5 mg every Thursday, Thursday, and Thursday. 4. Potassium chloride 20 mEq at noon and otherwise 40 mEq p.o. b.i.d. He also received 60 mEq this morning. 5. Xarelto 20 mg daily. LABORATORY DATA: White blood cell count is 6.57, hemoglobin 11.7, and platelets 134. Sodium 138, potassium 4.3, BUN 50, creatinine 1.37 and magnesium was 2.1. Telemetry personally reviewed. Atrial fibrillation. There was a 24-beat run of ventricular tachycardia overnight. ASSESSMENT AND PLAN: 1. Acute on chronic diastolic congestive heart failure/cor pulmonale: He still has residual edema, more than baseline. Continue 40 mg of Lasix twice daily with metolazone on Thursday, Thursday and Thursday. He has been on metolazone chronically. With cor pulmonale, he may have some residual edema going forward, even when euvolemic. Heart failure clinic upon followup. 2. Pneumonia: As per primary service. 3. Atrial fibrillation: His heart rate is adequately controlled. Continue anticoagulation for stroke risk reduction. 4. Pulmonary hypertension: He has chronic pulmonary hypertension, some of which is likely secondary to left heart failure based on his most recent echo. Continue current regimen. 5. Ventricular tachycardia: Twenty-four beat run of ventricular tachycardia. He was also hypokalemic. Optimize electrolytes. Continue beta sudhir. No other intervention recommended at this time. 6. Disposition: Follow up in heart failure clinic upon discharge. Cardiology nursing staff has been personally notified and they are arranging this appointment for him to be done within the next 7-10 days to follow with heart failure protocol. Plan of care has been discussed with primary service, Linda Briscoe.
--- NOTE | 2017-07-02 13:57 | Discharge Instructions ---
Discharge Instructions Date of Service Jul 02, 2017. Admission Reason for Admission: PNA Discharge Discharge Diagnosis / Problem: Congestive heart failure exacerbation Discharge Goals Goal(s): Decrease discomfort, Improve function, Increase independence, Improve disease control, Learn about illness, Diagnostic testing, Therapeutic intervention, Prevent Disease Progression Activity Recommendations Activity Limitations: resume your previous activity . Instructions / Follow-Up Instructions / Follow-Up You were admitted to [facility] due to progressive shortness of breath. You were treated for: Pneumonia (lung infection): You have completed a course of antibiotics Congestive heart failure: You were treated with IV Lasix Medications changes: Lasix was INCREASED to 40 mg twice daily Xarelto was INREASED to 20 mg DAILY (was previously 15mg daily) Resume all other regular home medications as prescribed You now require 3L oxygen supplement with ambulation FOLLOW-UPS: Please follow-up with your PCP within 5-7 days Please follow-up with Cardiology/CHF clinic within 2 weeks Please follow-up/keep all of your subspecialty appointments Call your Primary Care doctor if any of the following symptoms or problems start or get worse: * Shortness of breath or difficulty breathing * Wake up at night short of breath * Chest pain * Cough * Swelling of your hands, feet, or legs * More fatigued or tired with your normal activity * Palpitations - sudden fast heart beats WEIGHT * Weigh yourself every morning after using the bathroom. * Use the same scale. * Wear the same amount of clothing. * Write your weight down on a chart. * Call your Primary Care doctor if you gain more than 2-3 pounds in 1-2 days. MEDICATIONS * Use this discharge instruction sheet for medication instructions. * Take your medications at the time your doctor ordered. * Do not skip a dose of your medicines. * If you miss a dose of medicine, take it as soon as possible, but DO NOT DOUBLE A DOSE. * Read your medicine information when you get home. * Know all of the side effects of your medicine. If in doubt, ask your pharmacist * Call your Primary Care doctor's office if you have any side effects. * Be sure all of your doctors know what medicine and herbs you take (including cold, flu, and herbal medicine). Take the following with you to your follow-up doctor appointments: * Weight Chart * Medication List * List of questions Do not drink excessive alcohol, beer or wine. Current Hospital Diet Patient's current hospital diet: Low Sodium Diet (2gm Na) Discharge Diet Recommended Diet: AHA Diet (Heart Healthy), Low Sodium Diet (2gm Na) Fluid Restriction: 1500 ml (6 cups) Pending Studies Studies pending at discharge: no Laboratory Results Hemoglobin A1c Test 04/19/17 12:46 Range/Units Estimated Average Glucose 114 mg/dl Hemoglobin A1c 5.6 4.5-5.6 % Lipid Panel Test 04/19/17 12:46 Range/Units Triglycerides Level 105 0-150 mg/dl Cholesterol Level 149 0-200 mg/dl HDL Cholesterol 50 mg/dl Cholesterol/HDL Ratio 3.0 LDL Cholesterol, Calculated 78 mg/dl Medical Emergencies . Who to Call and When: Call 911 or go to the Emergency Room if: * If at any time you feel your situation is an emergency * You have tightness or pain in your chest that does not go away with rest or Nitroglycerin * You are very short of breath even with rest . Non-Emergent Contact Non-Emergency issues call your: Primary Care Provider, Autobody Technician Call Non-Emergent contact if: you have any medication questions . . "Provider Documentation" section prepared by Linda Briscoe. . VTE Core Measure Inpt VTE Proph given/why not?: Other Anticoagulation
--- NOTE | 2017-07-02 14:05 | Discharge Summary ---
Discharge Summary Date of Service Jul 02, 2017. Discharge Summary Admission Date: Jun 22, 2017 at 19:24 Discharge Date: Jul 02, 2017 Discharge Disposition: Home with services Principal Diagnosis: Acute on chronic diastolic CHF exacerbation Problems/Secondary Diagnoses: Multifocal PNA Acute hypoxic respiratory failure pulmonary HTN mild to moderate tricuspid regurgitation mitral regurgitation Chronic a.fib NSVT hypokalemia HTN CKD stage III Chronic lower extremity edema peripheral neuropathy Abnormal UA Gout BPH Prostate CA morbid obesity IPMNs h/o colon rupture spinal stenosis with gait dysfunction anemia, macrocytosis, borderline thrombocytopenia Immunizations: Have You Had Influenza Vaccine: N/A Influenza Vaccine Date: Feb 07, 2010 History of Tetanus Vaccine?: Yes Tetanus Immunization Date: May 30, 2005 History of Pneumococcal: Yes Pneumococcal Date: May 30, 2005 History of Hepatitis B Vaccine: No Procedures: ECHOCARDIOGRAM: Interpretation Summary * Name: MAURICIO PADILLA Study Date: 06/24/2017 10:42 AM BP: 115/67 mmHg * Patient Location: [id number]\2 HR: 57 * : 1940 (M/d/yyyy) Gender: Male Height: 67 in * Age: 76 yrs Ethnicity: CA Weight: 299 lb * Ordering Physician: Gerald Vazquez * Referring Physician: Saleem Gil * Performed By: Val Hawkins RDCS * * Reason For Study: Edema * BSA: 2.4 m2 * -- Conclusions -- * The left ventricle is mildly dilated. * There is borderline concentric left ventricular hypertrophy. * Left ventricular systolic function is normal. * Flattened septum is consistent with RV pressure overload. * The right ventricle is mild to moderately dilated. * The left atrium is moderately dilated. * The right atrium is moderately dilated. * There is mild to moderate tricuspid regurgitation. * Right ventricular systolic pressure is elevated at >60mmHg. * The inferior vena cava is mildly dilated. * Compared to study from 2012, there appears to be less mitral regurgitation. The estimated pulmonary pressures are higher. Procedure Details * A complete two-dimensional transthoracic echocardiogram was performed (2D, M- mode, Doppler and color flow Doppler). * The study was technically difficult. * The study was technically difficult, but visualization was adequate with the administration of Definity ultrasound contrast. * There were technical limitations due to patient'sbody habitus * A contrast injection of Definity was performed to improve assessment of LV function. * Contrast was injected into an intravenous site in the right arm. * One vial of Definity ultrasound contrast was diluted in normal saline to a total volume of 10 ml. A total of '1.5' ml of solution was administered during imaging. * Lot # [id number] of Definity utilized for procedure. * Expiration date AN. * The attending nurse who injected the contrast agent was Kala Werner RN. Left Ventricle * The left ventricle is mildly dilated. * There is borderline concentric left ventricular hypertrophy. * Ejection Fraction = 50-55%. * Left ventricular systolic function is normal. * The left ventricular wall motion is normal. * Flattened septum is consistent with RV pressure overload. Right Ventricle * The right ventricle is mild to moderately dilated. * The right ventricle is not well visualized. Atria * The left atrium is moderately dilated. * The right atrium is moderately dilated. * There is a catheter/pacemaker lead seen in the right atrium. Mitral Valve * The mitral valve is grossly normal. * There is trace mitral regurgitation. Tricuspid Valve * The tricuspid valve is not well visualized, but is grossly normal. * There is mild to moderate tricuspid regurgitation. * Right ventricular systolic pressure is elevated at >60mmHg. Aortic Valve * The aortic valve is not well visualized. * No hemodynamically significant valvular aortic stenosis. * There is no significant aortic regurgitation. Great Vessels * The aortic root is normal size. Pericardium/Pleural * There is no pericardial effusion. Great Vessels * The inferior vena cava is mildly dilated. ULTRASOUND BILATERAL LOWER EXTREMITY VENOUS CLINICAL HISTORY: Lower extremity edema. Dyspnea. COMPARISON STUDY: Bilateral lower extremity venous ultrasound dated 10/07/2010. TECHNIQUE: Real-time, grayscale, and color Doppler sonography of the deep veins of the right and left lower extremity was performed from the inguinal crease to the calf. Compression and augmentation were utilized. FINDINGS: There is no sonographic evidence of deep venous thrombosis identified in the right or left lower extremity. The common femoral, superficial femoral, and popliteal veins are patent and normally compressible bilaterally. The greater saphenous vein and the profunda femoris vein at the junction with the common femoral vein are clear in both legs. The visualized calf veins are patent bilaterally. IMPRESSION: There is no sonographic evidence of deep venous thrombosis identified in the right or left lower extremity. Electronically signed by: Reji Almonte M.D. 06/22/2017 2:08 PM Dictated Date/Time: 06/22/2017 2:08 PM The status of this report is Signed. Draft = Not yet reviewed or approved by Radiologist. Signed = Reviewed and approved by Radiologist (CHEST FOR PE) ANGIO WITH CLINICAL HISTORY: 76 years-old Male presenting with permanent atrial fibrillation, leg swelling, dyspnea, clinical concern for pulmonary embolus. TECHNIQUE: Multidetector CT angiography of the chest was performed after administration of intravenous contrast. 3-D volumetric and/or maximum intensity projection (MIP) images were subsequently reconstructed for review. IV contrast: 93 mL of Optiray 320. A dose lowering technique was used consistent with the principles of ALARA (as low as reasonably achievable). COMPARISON: 09/01/2013. CT DOSE (mGy.cm): The estimated cumulative dose is 908.21 mGy.cm. FINDINGS: Helminthology Teacher topogram: Cardiomegaly. Pulmonary vasculature: The study is adequate for assessment of the pulmonary vascular tree. No filling defect within the pulmonary arteries to suggest embolus. Main pulmonary artery enlarged measuring 4.2 cm in transverse dimension. No flattening of the interventricular septum. No intracardiac filling defect. Reflux of contrast into the IVC and hepatic veins. Remaining chest: On soft tissue windows, normal thyroid. Bilateral gynecomastia. Prominent wall collateral veins Atherosclerosis of the aorta. Multichamber enlargement of the heart. Coronary artery calcification. No pericardial or pleural effusion. Cholecystectomy clips noted. 1.6 cm nodule noted in the left adrenal gland consistent with a benign adenoma by density. This is unchanged from prior exam. On lung windows, respiratory motion artifact grades evaluation at the lung bases. Allowing for this, multifocal patchy opacity primarily in the right lower lobe and minimally involving the right middle lobe and right upper lobe in a peribronchovascular distribution. Mosaic attenuation noted primarily in the right lung. Bronchial wall thickening also noted right greater than left. Large airways patent. On bone windows, degenerative changes of the spine. IMPRESSION: 1. No pulmonary embolus. 2. Patchy consolidation primarily in the right lower lobe also involving the right middle and upper lobes to a lesser degree with associated pocket wall thickening. Findings consistent with multifocal pneumonia. 3. Enlargement of the main pulmonary artery suggest pulmonary hypertension. This may be secondary to elevated left heart pressures. 4. Cardiomegaly. Electronically signed by: Mauricio Brown M.D. 06/22/2017 3:03 PM Dictated Date/Time: 06/22/2017 2:56 PM The status of this report is Signed. Draft = Not yet reviewed or approved by Radiologist. Signed = Reviewed and approved by Radiologist. Consultations: Cardiology- Dr. Evans/Dr. Lyn Medication Reconciliation New Medications: Rivaroxaban (Xarelto) 20 Mg Tab 1 TAB PO DAILY for 30 Days, #30 TAB 11 Refills Changed Medications: Furosemide (Furosemide) 40 Mg Tab 40 MG PO BID for 30 Days, #60 TABS (Changed from: Furosemide (Lasix) 20 Mg Tab 60 Mg PO QAM) Continued Medications: Allopurinol (Zyloprim) 100 Mg Tab 200 MG PO DAILY, TAB Atenolol (Atenolol) 25 Mg Tab 25 MG PO DAILY Bioflavonoid Products (Shante-C) 1 Tab Tab 1 TAB PO DAILY Calcium Carbonate (Calcium) 600 Mg Tab 1200 MG PO DAILY Cholecalciferol (Vitamin D3) 1,000 Unit Tab 1000 UNITS PO DAILY for 90 Days, TAB 3 Refills Docusate Sodium (Docusate Sodium) 100 Mg Cap 100 MG PO BID for 7 Days, #14 CAP Duloxetine Hcl (Cymbalta) 60 Mg Cap 1 CAP PO DAILY for 90 Days, #90 CAP 3 Refills Metolazone (Zaroxolyn) 5 Mg Tab 5 MG PO MWF, TAB Multiple Vitamins W/ Minerals (Centrum Silver Adult 50+) 1 Tab Tab 1 TAB PO QDB Oxycodone/Acetaminophen 5MG/325MG (Percocet 5MG/325MG) Tab 2 TAB PO Q4H PRN for Pain, #60 TAB 0 Refills PAIN Potassium Chloride (Micro-K Ext Rel) 10 Meq Capcr 20 MEQ PO AMPM, CAP TAKE WITH BREAKFAST & DINNER Tamsulosin Hcl (Flomax) 0.4 Mg Cap 0.4 MG PO QPM, CAP TAKE 1 HOUR AFTER SUPPER Discharge Exam Review of Systems: Constitutional: No fever, No chills, No sweats, No weakness, No fatigue Eyes: No worsening of vision ENT: No hearing loss Respiratory: + shortness of breath, + dyspnea on exertion, No cough, No dyspnea at rest, No hemoptysis Cardiovascular: + edema, No chest pain, No palpitations Abdomen: No pain, No nausea, No vomiting, No diarrhea, No constipation Musculoskeletal: No joint pain, No muscle pain, No swelling, No calf pain Genitourinary - Male: No hematuria, No urinary urgency Neurologic: No weakness, No numbness/tingling Psychiatric: No depression symptoms, No anxiety Endocrine: No fatigue Hematologic / Lymphatic: No abnormal bleeding/bruising Integumentary: No rash, No itch, No new/changing skin lesions Physical Exam: General Appearance: no apparent distress, + obese Eyes: normal inspection, PERRL ENT: hearing grossly normal Neck: supple Respiratory/Chest: lungs clear, no respiratory distress, no accessory muscle use Cardiovascular: + irregularly irregular (rate controlled ) Abdomen / GI: normal bowel sounds, non tender, soft Extremities: no calf tenderness, + swelling (+2 pitting edema of bilateral lower extremities ), + pertinent finding (chronic venous stasis changes of bilateral lower extremities ) Neurologic/Psychiatric: alert, normal mood/affect, oriented x 3 Skin: normal color, warm/dry, no rash Hospital Course Patient is a pleasant 75 y/o male, with PMHx of chronic a.fib, HTN, chronic diastolic CHF, gout, BPH, chronic lower extremity edema, who presented to the ED due to PNA findings on CT today. Multifocal PNA: - IV Zosyn + Levaquin in ED; continue IV Levaquin daily x10 days- treatment completed on 07/01 - DuoNebs QID and PRN for SOB - Mucinex 600 mg BID - BCx NGTD; MRSA negative; sputum culture negative - Influenza negative Acute on chronic diastolic CHF, acute hypoxic respiratory failure, pulmonary HTN , chronic a.fib, HTN- STABLE, NSVT- follows w/ Dr. Evans: - Tele for cardiac monitoring- a.fib w/ rates in 60s, 23 beat run of VT at 0230 on 07/02 - IV Lasix 40 mg BID- changed to 40 mg PO BID - Continue Metolazone 5 mg MWF, KCL supplement 20 mEq BID - O2 protocol- 2 step completed prior to discharge, require 3L O2 NC w/ ambulation - Monitor I&Os and daily weights- negative 8.6L - 1500 mL fluid restriction and low sodium diet - ECHO reviewed - Continue Atenolol 25 mg daily, Xarelto 20 mg daily - Recommend outpatient sleep study to assess for JAMILA Hypokalemia, secondary to Lasix: Follow K and replace PRN, continue BID KCL supplement CKD stage III- STABLE: Follow PRP Chronic lower extremity edema: - Bilateral venous Doppler negative for PE - Continue Lidocaine ointment TID PRN - Lasix as above Abnormal UA: Levaquin coverage as above Macrocytosis- chronic off and on since 2009, anemia- STABLE, borderline thrombocytopenia: - Follow CBC - B12, folate, TSH check in 12/2016- WNL, does not drink any EtOH to explain macrocytosis - Recommend outpatient hematology/oncology follow-up for ?MDS Gout: Continue Allopurinol BPH, prostate CA: - Continue Flomax - Recently had prostate biopsy- continue outpatient f/u DVT prophylaxis: Xarelto Code status: LEVEL I, FULL Dispo: Discharge to home w/ [facility] Total Time Spent: Greater than 30 minutes This includes examination of the patient, discharge planning, medication reconciliation, and communication with other providers. Discharge Instructions Please refer to the electronic Patient Visit Report (Discharge Instructions) for additional information. Follow-Up Please follow-up with your PCP within 5-7 days Please follow-up with Cardiology/CHF clinic within 2 weeks Recommend hematology/oncology follow-up for anemia Please follow-up/keep all of your subspecialty appointments Additional Copies To Saleem Gil M.D.; Deangelo Evans MD Reviewed: Pt Seen/Exam by Me History Physician Helpdesk Specialist Supervision Note: I interviewed and examined the patient. Discussed with MARÍA Briscoe and agree with findings and plan as documented in the note. Any exceptions or clarifications are listed here: Continues to diurese. Still requiring O2 but only with ambulation. Has concerns about the cost of his Xarelto which is $500+ dollars for a 90 day supply. Is ready to go home. Vitals and tele reviewed Obese, sitting in chair, NAD irreg irreg, no mgr CTAB no wcr, breathing unlabored Abd +BS, soft, NT ND Ext 1+ pitting edema and chronic venous stasis changes with purple and brown hemosiderin deposits This patient is a 75-year-old male with a h/o chronic A-fib on Xarelto, CKD stage III, obesity, chronic diastolic CHF, pulmonary HTN, HTN, Peripheral neuropathy, IPMNs, h/o colon rupture, and spinal stenosis with gait dysfunction , who presents with acute on chronic diastolic CHF, multifocal PNA, and acute on chronic hyoxemic respiratory failure. Doppler of the LLEs neg for DVT. Has an IVC filter in place. CTA Chest neg for PE Acute on chronic diastolic CHF/Pulm HTN,Cor pulmonale-much improved, but still has some further diuresis to get back to baseline--> this can be done with increased dose of po lasix upon discharge at home with close f/u in CHF clinic -go home on lasix 40mg po bid -continue metolazone MW -recommend repeat testing for JAMILA as outpt after discharge -home with supplemental O2 with ambulation -f/u in CHF clinic within 2 weeks after discharge Acute hypoxemic resp failure/Multifocal PNA and secondary to Acute CHF -finished abx -diuretics as above, O2 as above HTN, chronic A. fib-stable, rate controlled/NSVT--> EF normal, some VT on monitor and potassium repleted -Continue atenolol 25 mg daily --agree with increasing Xarelto to 20mg dose as CrCl is > 50---> HOWEVER, advised pt that if it is NOT cost affordable to fill this 20mg Rx for Xarelto, he should continue on the 15mg dose for now and inquire with his PCP or Cardiology about switching to Eliquis or Pradaxa if more affordable with his current insurance plan Macrocytosis, Anemia of acute blood loss-Macrocytosis is chronic off and on since 2009, also with borderline thrombocytopenia, but no leukopenia. B12, folate, TSH all normal previously. He does not drink any EtOH to explain macrocytosis. -May benefit from routine Hematology referral as outpt for evaluation for MDS as suggested last admission- I do not see that this has been done yet in outpatient record BPH/Prostate CA- biopsies show CA, but outpt record does not show any f/u with Urology yet. Recommend outpatient f/u with Urology to discuss further evaluation /treatment Biopsy from 06/11/17: I. PROSTATE, SIDE UNSPECIFIED, TARGET LESION X3, BIOPSY: 1. 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 2. MICHAEL PATTERN 4 COMPRISES 20% OF TUMOR PRESENT. 3. TUMOR INVOLVES ONE OF THREE TISSUE CORES. 4. TUMOR INVOLVES 10% OF A 1.2 CM CORE. 5. NO PERINEURAL INVASION IDENTIFIED. Dispo- to home with Home O2 today Documented By: Corinne Cerrato
[2017-07-02] MEDS ORDERED: OXGN (14:18)
[2017-07-02] MEDS: RIVAROXABAN 20 MG TAB PO SCH (15:39)
== END 2017-07-02 16:51 | disposition home health service (06) | DRG 291 ==
LOC: C.EDB 15:38 → C.MS2W 19:24 → ENRESERV 20:06 → C.2T 06-24 14:23
PROVIDERS: ADMIT Internal Medicine; ATTEND Family Medicine
DX: I13.0 Hypertensive heart and chronic kidney disease with heart failure and stage 1 through stage 4 chronic kidney disease, or unspecified chronic kidney disease (principal); J18.9 Pneumonia, unspecified organism; I50.33 Acute on chronic diastolic (congestive) heart failure; Z68.42 Body mass index [BMI] 45.0-49.9, adult; L03.115 Cellulitis of right lower limb; L03.116 Cellulitis of left lower limb; I48.1 Persistent atrial fibrillation; N17.9 Acute kidney failure, unspecified; I27.81 Cor pulmonale (chronic); I48.2 Chronic atrial fibrillation; N18.3 Chronic kidney disease, stage 3 (moderate); R04.0 Epistaxis; I27.29 Other secondary pulmonary hypertension; D75.89 Other specified diseases of blood and blood-forming organs; M10.9 Gout, unspecified; N40.0 Benign prostatic hyperplasia without lower urinary tract symptoms; R60.0 Localized edema; E66.01 Morbid (severe) obesity due to excess calories; Z79.899 Other long term (current) drug therapy

== ENCOUNTER → 2017-06-22 | Outpatient (CLI) | payer OTHER, MEDICARE ==
[~2017-06-22] MED LIST changes: +DULO60CA44 PO; +OPTIRAY 320 IV PRN
--- NOTE | 2017-06-22 14:10 | DIAGNOSTIC IMAGING REPORT ---
ULTRASOUND BILATERAL LOWER EXTREMITY VENOUS CLINICAL HISTORY: Lower extremity edema. Dyspnea. COMPARISON STUDY: Bilateral lower extremity venous ultrasound dated 10/07/2010. TECHNIQUE: Real-time, grayscale, and color Doppler sonography of the deep veins of the right and left lower extremity was performed from the inguinal crease to the calf. Compression and augmentation were utilized. FINDINGS: There is no sonographic evidence of deep venous thrombosis identified in the right or left lower extremity. The common femoral, superficial femoral, and popliteal veins are patent and normally compressible bilaterally. The greater saphenous vein and the profunda femoris vein at the junction with the common femoral vein are clear in both legs. The visualized calf veins are patent bilaterally. IMPRESSION: There is no sonographic evidence of deep venous thrombosis identified in the right or left lower extremity. Electronically signed by: Reji Almonte M.D. 06/22/2017 2:08 PM Dictated Date/Time: 06/22/2017 2:08 PM
--- NOTE | 2017-06-22 15:05 | DIAGNOSTIC IMAGING REPORT ---
(CHEST FOR PE) ANGIO WITH CLINICAL HISTORY: 76 years-old Male presenting with permanent atrial fibrillation, leg swelling, dyspnea, clinical concern for pulmonary embolus. TECHNIQUE: Multidetector CT angiography of the chest was performed after administration of intravenous contrast. 3-D volumetric and/or maximum intensity projection (MIP) images were subsequently reconstructed for review. IV contrast: 93 mL of Optiray 320. A dose lowering technique was used consistent with the principles of ALARA (as low as reasonably achievable). COMPARISON: 09/01/2013. CT DOSE (mGy.cm): The estimated cumulative dose is 908.21 mGy.cm. FINDINGS: Supervisor [employer] topogram: Cardiomegaly. Pulmonary vasculature: The study is adequate for assessment of the pulmonary vascular tree. No filling defect within the pulmonary arteries to suggest embolus. Main pulmonary artery enlarged measuring 4.2 cm in transverse dimension. No flattening of the interventricular septum. No intracardiac filling defect. Reflux of contrast into the IVC and hepatic veins. Remaining chest: On soft tissue windows, normal thyroid. Bilateral gynecomastia. Prominent wall collateral veins Atherosclerosis of the aorta. Multichamber enlargement of the heart. Coronary artery calcification. No pericardial or pleural effusion. Cholecystectomy clips noted. 1.6 cm nodule noted in the left adrenal gland consistent with a benign adenoma by density. This is unchanged from prior exam. On lung windows, respiratory motion artifact grades evaluation at the lung bases. Allowing for this, multifocal patchy opacity primarily in the right lower lobe and minimally involving the right middle lobe and right upper lobe in a peribronchovascular distribution. Mosaic attenuation noted primarily in the right lung. Bronchial wall thickening also noted right greater than left. Large airways patent. On bone windows, degenerative changes of the spine. IMPRESSION: 1. No pulmonary embolus. 2. Patchy consolidation primarily in the right lower lobe also involving the right middle and upper lobes to a lesser degree with associated pocket wall thickening. Findings consistent with multifocal pneumonia. 3. Enlargement of the main pulmonary artery suggest pulmonary hypertension. This may be secondary to elevated left heart pressures. 4. Cardiomegaly. Electronically signed by: Mauricio Brown M.D. 06/22/2017 3:03 PM Dictated Date/Time: 06/22/2017 2:56 PM
== END | disposition home or self-care (01) ==
LOC: C.ULTRBC 12:48
PROVIDERS: ATTEND Nurse Practitioner Adult Health
DX: I48.2 Chronic atrial fibrillation (principal); R06.00 Dyspnea, unspecified

== ENCOUNTER → 2017-07-10 | Outpatient (CLI) | payer OTHER, MEDICARE ==
[~2017-07-10] MED LIST changes: -CYM/30 PO; +DULO60CA44 PO; -FLUOCRE TOP; -FURO-85 PO; +LSX40 PO; +OXGN; +RIVA1TAB4 PO
[2017-07-10 17:47] LABS: BLOOD UREA NITROGEN 37 mg/dl (7-18); CALCIUM 10.6 mg/dl (8.5-10.1); CARBON DIOXIDE 43 mmol/L (21-32); CREATININE 1.26 mg/dl (0.60-1.40); GLUCOSE 104 mg/dl (70-99); POTASSIUM 3.4 mmol/L (3.5-5.1); SODIUM 137 mmol/L (136-145)
== END | disposition home or self-care (01) ==
LOC: C.LABBC 13:00
PROVIDERS: ATTEND Physician Assistant
DX: I50.32 Chronic diastolic (congestive) heart failure (principal)

== ENCOUNTER → 2017-07-15 | Outpatient (CLI) | payer OTHER, MEDICARE ==
[2017-07-15 14:16] LABS: BLOOD UREA NITROGEN 40 mg/dl (7-18); CALCIUM 9.7 mg/dl (8.5-10.1); CARBON DIOXIDE 36 mmol/L (21-32); CREATININE 1.48 mg/dl (0.60-1.40); GLUCOSE 106 mg/dl (70-99); POTASSIUM 3.4 mmol/L (3.5-5.1); SODIUM 136 mmol/L (136-145)
== END | disposition home or self-care (01) ==
LOC: C.LABBC 10:02
PROVIDERS: ATTEND Internal Medicine Geriatric Medicine
DX: I50.32 Chronic diastolic (congestive) heart failure (principal)

== ENCOUNTER → 2017-08-04 | Outpatient (CLI) | payer OTHER, MEDICARE ==
--- NOTE | 2017-08-04 12:01 | DIAGNOSTIC IMAGING REPORT ---
CHEST 2 VIEWS ROUTINE CLINICAL HISTORY: PNEUOMINA dyspnea COMPARISON STUDY: 12/22/2016 FINDINGS: Mild stable cardia megaly. Chronic blunting left lateral costophrenic angle. Hilar prominence unaltered. Lungs otherwise are clear. There are postoperative changes lateral aspect left midlung unchanged. IMPRESSION: Chronic and postoperative change. No acute process. The above report was generated using voice recognition software. It may contain grammatical, syntax or spelling errors. Electronically signed by: Andrez Tolliver M.D. 08/04/2017 12:00 PM Dictated Date/Time: 08/04/2017 11:59 AM
[2017-08-04 13:46] LABS: BASO % 1.5 %; BASO ABS # 0.08 K/uL (0-0.2); EOS % 8.7 %; EOS ABS # 0.45 K/uL (0-0.5); HEMATOCRIT 44.1 % (42-52); HEMOGLOBIN 14.6 g/dL (14.0-18.0); IG# 0.01 K/uL (0.00-0.02); LYMPH % 29.1 %; LYMPH ABS # 1.51 K/uL (1.2-3.4); MEAN CELL VOLUME 98.2 fL (80-100); MEAN CORPUSCULAR HEMOGLOBIN 32.5 pg (25-34); MEAN CORPUSCULAR HGB CONC 33.1 g/dl (32-36); MEAN PLATELET VOLUME 11.7 fL (7.4-10.4); MONO % 12.3 %; MONO ABS # 0.64 K/uL (0.11-0.59); NEUT % 48.2 %; PLATELET COUNT 186 K/uL (130-400); RED CELL DISTRIBUTION WIDTH SD 60.4 fL (36.4-46.3); WHITE BLOOD COUNT 5.19 K/uL (4.8-10.8)
[2017-08-04 14:06] LABS: BLOOD UREA NITROGEN 46 mg/dl (7-18); CALCIUM 10.1 mg/dl (8.5-10.1); CARBON DIOXIDE 32 mmol/L (21-32); CREATININE 1.43 mg/dl (0.60-1.40); GLUCOSE 103 mg/dl (70-99); POTASSIUM 3.2 mmol/L (3.5-5.1); SODIUM 136 mmol/L (136-145)
== END | disposition home or self-care (01) ==
LOC: C.RADBC 11:06
PROVIDERS: ATTEND Nurse Practitioner Adult Health
DX: J18.9 Pneumonia, unspecified organism (principal)

== ENCOUNTER → 2017-08-18 | Outpatient (CLI) | payer OTHER, MEDICARE ==
[~2017-08-18] MED LIST changes: +XRL10 PO
[2017-08-18 14:12] LABS: BLOOD UREA NITROGEN 58 mg/dl (7-18); CALCIUM 10.2 mg/dl (8.5-10.1); CARBON DIOXIDE 32 mmol/L (21-32); CREATININE 1.32 mg/dl (0.60-1.40); GLUCOSE 108 mg/dl (70-99); POTASSIUM 3.2 mmol/L (3.5-5.1); SODIUM 137 mmol/L (136-145)
== END | disposition home or self-care (01) ==
LOC: C.LABBC 10:52
PROVIDERS: ATTEND Internal Medicine Geriatric Medicine
DX: E87.6 Hypokalemia (principal)

== ENCOUNTER → 2017-09-11 | Outpatient (CLI) | payer OTHER, MEDICARE ==
[~2017-09-11] MED LIST changes: -OXGN; -OXYC-57 PO; -RIVA1TAB4 PO
[2017-09-11 14:23] LABS: BLOOD UREA NITROGEN 58 mg/dl (7-18); CALCIUM 9.8 mg/dl (8.5-10.1); CARBON DIOXIDE 32 mmol/L (21-32); CREATININE 1.47 mg/dl (0.60-1.40); GLUCOSE 112 mg/dl (70-99)
[2017-09-11 14:42] LABS: POTASSIUM 3.1 mmol/L (3.5-5.1); SODIUM 139 mmol/L (136-145)
== END | disposition home or self-care (01) ==
LOC: C.LABBC 10:44
PROVIDERS: ATTEND Internal Medicine
DX: E87.6 Hypokalemia (principal)

== ENCOUNTER → 2017-09-22 | Outpatient (CLI) | payer OTHER, MEDICARE ==
[2017-09-22 13:27] LABS: BASO % 0.8 %; BASO ABS # 0.05 K/uL (0-0.2); EOS % 5.9 %; EOS ABS # 0.37 K/uL (0-0.5); HEMATOCRIT 42.7 % (42-52); HEMOGLOBIN 13.7 g/dL (14.0-18.0); IG# 0.01 K/uL (0.00-0.02); LYMPH % 18.3 %; LYMPH ABS # 1.15 K/uL (1.2-3.4); MEAN CELL VOLUME 101.9 fL (80-100); MEAN CORPUSCULAR HEMOGLOBIN 32.7 pg (25-34); MEAN CORPUSCULAR HGB CONC 32.1 g/dl (32-36); MEAN PLATELET VOLUME 12.2 fL (7.4-10.4); MONO % 10.3 %; MONO ABS # 0.65 K/uL (0.11-0.59); NEUT % 64.5 %; NEUT ABS # 4.06 K/uL (1.4-6.5); PLATELET COUNT 152 K/uL (130-400); RED CELL DISTRIBUTION WIDTH CV 16.8 % (11.5-14.5); RED CELL DISTRIBUTION WIDTH SD 61.7 fL (36.4-46.3); WHITE BLOOD COUNT 6.29 K/uL (4.8-10.8)
[2017-09-22 13:56] LABS: HEMOGLOBIN A1C 5.4 % (4.5-5.6)
[2017-09-22 14:10] LABS: ALBUMIN 3.7 gm/dl (3.4-5.0); BLOOD UREA NITROGEN 38 mg/dl (7-18); CARBON DIOXIDE 29 mmol/L (21-32); CREATININE 1.22 mg/dl (0.60-1.40); GLUCOSE 105 mg/dl (70-99); POTASSIUM 4.4 mmol/L (3.5-5.1); SODIUM 138 mmol/L (136-145); URIC ACID 5.7 mg/dl (2.6-7.2)
[2017-09-22 14:21] LABS: PHOSPHORUS 2.4 mg/dl (2.5-4.9)
== END | disposition home or self-care (01) ==
LOC: C.LABBC 10:23
PROVIDERS: ATTEND Internal Medicine Geriatric Medicine
DX: R73.9 Hyperglycemia, unspecified (principal); N18.9 Chronic kidney disease, unspecified; M19.90 Unspecified osteoarthritis, unspecified site; G62.9 Polyneuropathy, unspecified; E55.9 Vitamin D deficiency, unspecified; M48.00 Spinal stenosis, site unspecified; I10 Essential (primary) hypertension

== ENCOUNTER → 2017-10-01 | Outpatient (CLI) | payer OTHER, MEDICARE ==
[2017-10-01 10:50] LABS: BLOOD UREA NITROGEN 36 mg/dl (7-18); CALCIUM 9.5 mg/dl (8.5-10.1); CARBON DIOXIDE 29 mmol/L (21-32); CREATININE 1.34 mg/dl (0.60-1.40); GLUCOSE 103 mg/dl (70-99); POTASSIUM 4.4 mmol/L (3.5-5.1); SODIUM 139 mmol/L (136-145)
== END | disposition home or self-care (01) ==
LOC: C.LABBC 08:01
PROVIDERS: ATTEND Internal Medicine Geriatric Medicine
DX: R73.9 Hyperglycemia, unspecified (principal); N18.9 Chronic kidney disease, unspecified; M19.90 Unspecified osteoarthritis, unspecified site; M48.00 Spinal stenosis, site unspecified; I12.9 Hypertensive chronic kidney disease with stage 1 through stage 4 chronic kidney disease, or unspecified chronic kidney disease; E55.9 Vitamin D deficiency, unspecified

== ENCOUNTER → 2017-10-06 | Outpatient (CLI) | payer OTHER, MEDICARE ==
--- NOTE | 2017-10-06 15:53 | DIAGNOSTIC IMAGING REPORT ---
CHEST 2 VIEWS ROUTINE HISTORY: J20.9 Acute bronchitis with bronchospasm COMPARISON: Chest 08/04/2017. FINDINGS: Suture material within the left midlung zone is again noted. No pneumothorax. Stable blunting of the left lateral costophrenic sulcus. There is mild diffuse interstitial thickening, unchanged. The heart remains enlarged. A few left basilar linear densities favor subsegmental atelectasis. This remains unchanged. IMPRESSION: 1. No significant change compared the prior study. 2. Stable cardiomegaly and interstitial thickening. Electronically signed by: Richard Torres M.D. 10/06/2017 3:51 PM Dictated Date/Time: 10/06/2017 3:49 PM
--- NOTE | 2017-10-06 15:54 | DIAGNOSTIC IMAGING REPORT ---
R FOOT MIN 3 VIEWS ROUTINE HISTORY: 76 years-old Male M79.671 Foot pain, rightright 2nd, 3rd, 4th MCP pain. no injury chronic right foot pain COMPARISON: None available TECHNIQUE: 3 views of the right foot FINDINGS: Bones appear mildly demineralized. Mild hallux valgus deformity. There are moderate degenerative changes about the first MTP joint with at least mild multidigit interphalangeal osteoarthritis. There is suggestion of a subtle marginal erosion involving the medial first metatarsal head with mild associated soft tissue swelling. No sclerotic edges or overhanging margins identified. Mild periosteal thickening about the third through fourth metatarsals. Moderate degenerative changes about the midfoot with moderate sized plantar enthesophyte. Peripheral arterial disease. IMPRESSION: 1. Degenerative changes as above without acute fracture or dislocation. 2. Suggestion of a marginal erosion about the medial aspect of the first metatarsal head without specific features to suggest crystalline arthropathy. Crystalline arthropathy or inflammatory arthropathy are differential considerations. 3. Peripheral arterial disease. The above report was generated using voice recognition software. It may contain grammatical, syntax or spelling errors. Electronically signed by: Oh Gill M.D. 10/06/2017 3:52 PM Dictated Date/Time: 10/06/2017 3:50 PM
[2017-10-06 17:42] LABS: INFLUENZA B ANTIGEN Neg for Influ B (NEG)
== END | disposition home or self-care (01) ==
LOC: C.RADBC 14:49
PROVIDERS: ATTEND Physician Assistant Medical
DX: M79.671 Pain in right foot (principal); J20.9 Acute bronchitis, unspecified

== ENCOUNTER → 2018-01-05 | Outpatient (CLI) | payer OTHER, MEDICARE | END | disposition home or self-care (01) | LOC: C.LABBC 08:59 | PROVIDERS: ATTEND Urology | DX: C61 Malignant neoplasm of prostate (principal) ==

== ENCOUNTER 2018-10-16 16:33 | Inpatient (IN) ==
[2018-10-16] MEDS ORDERED: ONDANSETRON INJ 2 MG/ML 2 ML VIAL IV STA (16:59)
[2018-10-16] MEDS ORDERED: MoRPHine SULFATE 2 MG/ML CARP IV STA ×2 (16:59→18:32)
[2018-10-16] MEDS ORDERED: SODIUM CHLORIDE 0.9% 500 ML IV SCH (17:00)
[2018-10-16 17:23] LABS: Basophils # (auto) 0.01 K/uL (0-0.2); Eosinophils # (auto) 0.01 K/uL (0-0.5); Hematocrit (blood only) 42.6 % (42-52); Immature Granulocytes # (auto) 0.15 K/uL (0.00-0.02); Immature Granulocytes % (auto) 0.7 %; Lymphocytes # (auto) 0.49 K/uL (1.2-3.4); Lymphocytes % (auto) 2.3 %; Mean Corpuscular Hgb Conc 35.2 g/dL (32-36); Mean Corpuscular Volume 99.3 fL (80-100); Mean Platelet Volume 11.6 fL (7.4-10.4); Monocytes # (auto) 1.86 K/uL (0.11-0.59); Monocytes % (auto) 8.9 %; Neutrophils # (auto) 18.34 K/uL (1.4-6.5); Neutrophils % (auto) 88.1 %; Platelet Count 122 K/uL (130-400); RDW Coefficient of Variation 14.9 % (11.5-14.5); Red Blood Count 4.29 M/uL (4.7-6.1); White Blood Count 20.86 K/uL (4.8-10.8)
--- NOTE | 2018-10-16 17:32 | XRay Report ---
XR chest 1V portable CLINICAL HISTORY: weakness dyspnea COMPARISON STUDY: 12/22/2016 FINDINGS: Stable cardiomegaly. Diaphragms are smooth. Chronic blunting left lateral costophrenic angl e. Lungs appear clear. IMPRESSION: Chronic change. No acute process. The above report was generated using voice recognition software. It may contain grammatical, syntax or spelling errors. Electronically signed by: Anrdez Tolliver M.D. 10/16/2018 5:31 PM
--- NOTE | 2018-10-16 17:33 | XRay Report ---
XR foot RT min 3V routine CLINICAL HISTORY: pain eval for osteo pain COMPARISON: None. DISCUSSION: Generalized moderate degenerative change. No evidence for lytic or blastic process. Heel spur. There is no evidence for soft tissue swelling. IMPRESSION: Degenerative change. Heel spur. No acute process. The above report was generated using voice recognition software. It may contain grammatical, syntax or spelling errors. Electronically signed by: Andrez Tolliver M.D. 10/16/2018 5:32 PM
[2018-10-16 17:38] LABS: Albumin Level 3.5 gm/dl (3.4-5.0); BUN Creatinine Ratio 31.4 (10-20); Creatinine Clr Calc Pharmacy 31.1 ml/min; Est GFR (African American) 29.5; Est GFR (Non-African American) 25.5; Potassium 4.9 mmol/L (3.5-5.1)
[2018-10-16] MEDS ORDERED: VANCOMYCIN HCL 2,000 MG in SODIUM CHLORIDE 0.9% 500 ML IV ONE (17:48)
[2018-10-16] MEDS ORDERED: VANCOMYCIN CONSULT ACTIVE PRN (17:48)
[2018-10-16 17:56] LABS: Albumin Globulin Ratio 0.8 (0.9-2); Bilirubin,Total 1.3 mg/dl (0.2-1); Globulin 4.2 gm/dl (2.5-4.0); Total Protein 7.7 gm/dl (6.4-8.2); Troponin I 0.075 ng/ml (0-0.045)
--- NOTE | 2018-10-16 18:17 | History & Physical Report ---
Date of Service October 16, 2018 Assessment & Plan (1) Right foot infection: (2) Ambulatory dysfunction: (3) Leukocytosis: (4) Elevated troponin: (5) ARJUN (acute kidney injury): (6) Atrial fibrillation: (7) Cor pulmonale, chronic: (8) Spondylosis of lumbar joint: (9) Lumbar stenosis with neurogenic claudication: (10) DVT prophylaxis: (11) Obesity (BMI 30-39.9): History of Present Illness Primary Care Provider: Faiza Aguilar MD This is a 77 yo M with PMHx of chronic atrial fib on xarelto, cor pulmonale, right food dysfunction, pulmonary HTN, mild to moderate tricuspid regurgitation, mitral regurgitation, NSVT, hypokalemia , HTN, CKD stage III, Chronic lower extremity edema, peripheral neuropathy, gout, BPH, Prostate CA, morbid obesity IPMNs, h/o colon rupture, spinal stenosis with gait dysfunction, anemia, macrocytosis, borderline thrombocytopenia who presents with acute R foot. pain. Uric acid and ESR in process Allergies Allergy/AdvReac Type Severity Reaction Status Date / Time No Known Allergies Allergy Verified 08/25/17 13:30 Home Medications Home Medications Medication Instructions Recorded Confirmed Type Atenolol 25 mg PO DAILY #0 09/18/13 History BIOFLAVONOID PRODUCTS (JOHN-C) 1 tab PO DAILY #0 10/12/15 History MULTIPLE VITAMINS W/ MINERALS 1 tab PO QDB #0 10/12/15 History (CENTRUM SILVER ADULT 50+) Metolazone (Zaroxolyn) 5 mg PO MWF #0 tab 10/12/15 History ALLOPURINOL (ZYLOPRIM) 200 mg PO DAILY #0 tab 12/22/16 History CALCIUM CARBONATE (CALCIUM) 1,200 mg PO DAILY #0 12/22/16 History CHOLECALCIFEROL (VITAMIN D3) 1,000 unit PO DAILY 90 Days #0 tab 12/22/16 History DOCUSATE SODIUM 100 mg PO BID 7 Days #14 cap 12/22/16 History Potassium Chloride (Micro-K Ext 20 meq PO AMPM #0 cap 12/22/16 History Rel) TAMSULOSIN HCL (FLOMAX) 0.4 mg PO QPM #0 cap 12/22/16 History DULOXETINE HCL (CYMBALTA) 1 cap PO DAILY 90 Days #90 cap 06/22/17 History Furosemide 40 mg PO BID 30 Days #60 tabs 07/02/17 Rx Rivaroxaban (Xarelto) 1.5 tab PO DAILY 10 Days #15 tab 08/25/17 History Past Med/Surg History Medical History Lumbar stenosis with neurogenic claudication Spondylosis of lumbar joint Social History Feels Safe at Home: Yes Smoking Status: Never smoker Results & Data Vital Signs (Past 12 Hours) Vital Signs Temp Pulse Resp BP Pulse Ox 10/16/18 17:01 94 10/16/18 16:36 36.8 C 67 18 117/66 92 Diagnostic Findings XR foot RT min 3V routine CLINICAL HISTORY: pain eval for osteo pain COMPARISON: None. DISCUSSION: Generalized moderate degenerative change. No evidence for lytic or blastic process. Heel spur. There is no evidence for soft tissue swelling. IMPRESSION: Degenerative change. Heel spur. No acute process. XR chest 1V portable CLINICAL HISTORY: weakness dyspnea COMPARISON STUDY: 12/22/2016 FINDINGS: Stable cardiomegaly. Diaphragms are smooth. Chronic blunting left lateral costophrenic angle. Lungs appear clear. IMPRESSION: Chronic change. No acute process. (1) Leukocytosis Leukocytosis type: unspecified Qualified Code(s): D72.829 - Elevated white blood cell count, unspecified
[2018-10-16] MEDS ORDERED: COLCHICINE 0.6 MG TAB PO ONE (18:32)
[2018-10-16] MEDS ORDERED: methylPREDNISolone 125 MG/2 ML VIAL IV STA (18:32)
[2018-10-16 18:49] LABS: Uric Acid 5.1 mg/dl (2.6-7.2)
--- NOTE | 2018-10-16 18:58 | History & Physical Report ---
Date of Service October 16, 2018 Assessment & Plan (1) Acute on chronic kidney failure: Due to volume depletion. Hold Lasix, metolazone, spironolactone. Judicious administration of IV fluids due to history of CHF which currently is stable. Monitor urine output and daily renal function status. Present on Admission?: Yes (2) 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: Treat underlying renal failure. Administer colchicine 0.6 mg every 2 hours for 5 doses and intravenous Solu-Medrol every 8 hours. Administer IV fluids. Pain control measures Present on Admission?: Yes (3) Atrial fibrillation: Chronic. Continue Xarelto and atenolol therapy (4) Chronic CHF: Currently stable. Diuretics are on hold. Judicious administration of intravenous fluids for acute on chronic kidney disease. Monitor intake and output (5) Leukocytosis: Due to acute gout. This does not appear to be acute cellulitis. Will follow Present on Admission?: Yes (6) DVT prophylaxis: Continue Xarelto therapy History of Present Illness Chief Complaint: Severe right foot pain Primary Care Provider: Faiza Aguilar MD 77-year-old male with a history of chronic atrial fibrillation congestive heart failure chronic kidney disease and gout who developed severe right forefoot pain over the past several days that has progressed and is quite severe and he is unable to bear any weight on the right foot at all. His appetite is been very poor due to the pain and he states he has not eaten or drank anything substantially for the past several days. He presents to the ED with acute kidney injury with creatinine 2.3. His white count is 20,000. He appears to have acute gout in the right foot and is volume depleted. He has continued to take his Lasix, metolazone, spironolactone even though his oral intake has been poor over the past several days. I do not believe this is acute cellulitis. Vancomycin ordered by the ED has been discontinued. Clinically on physical exam there is no evidence of cellulitis but he is exquisitely tender to touch over the right lateral forefoot area which is more consistent with acute gout. Uric acid levels are pending but in the past he has had markedly elevated uric acid levels and he does take allopurinol because he has had gout in the past. He does meet admission criteria due to the acute kidney injury and he will be given judicious intravenous fluids while the diuretics are on hold. Colchicine has been ordered 0.6 mg every 2 hours for 5 doses along with IV steroids which should stop the acute gout attack quickly overnight. He remains on Xarelto 50 m g daily for the chronic atrial fibrillation which is rate controlled with atenolol. He will be placed on telemetry tonight however. Allergies Allergy/AdvReac Type Severity Reaction Status Date / Time No Known Allergies Allergy Verified 10/16/18 18:51 Home Medications Home Medications Medication Instructions Recorded Confirmed Type Atenolol 25 mg PO DAILY #0 09/18/13 History BIOFLAVONOID PRODUCTS (JOHN-C) 1 tab PO DAILY #0 10/12/15 History MULTIPLE VITAMINS W/ MINERALS 1 tab PO QDB #0 10/12/15 History (CENTRUM SILVER ADULT 50+) Metolazone (Zaroxolyn) 5 mg PO MWF #0 tab 10/12/15 History ALLOPURINOL (ZYLOPRIM) 200 mg PO DAILY #0 tab 12/22/16 History CALCIUM CARBONATE (CALCIUM) 1,200 mg PO DAILY #0 12/22/16 History CHOLECALCIFEROL (VITAMIN D3) 1,000 unit PO DAILY 90 Days #0 tab 12/22/16 History DOCUSATE SODIUM 100 mg PO BID 7 Days #14 cap 12/22/16 History Potassium Chloride (Micro-K Ext 20 meq PO AMPM #0 cap 12/22/16 History Rel) TAMSULOSIN HCL (FLOMAX) 0.4 mg PO QPM #0 cap 12/22/16 History DULOXETINE HCL (CYMBALTA) 1 cap PO DAILY 90 Days #90 cap 06/22/17 History Furosemide 40 mg PO BID 30 Days #60 tabs 07/02/17 Rx Rivaroxaban (Xarelto) 1.5 tab PO DAILY 10 Days #15 tab 08/25/17 History Past Med/Surg History Medical History DVT prophylaxis Leukocytosis (Acute) Chronic CHF (Chronic) 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 (Acute) Acute on chronic kidney failure (Acute) Obesity (BMI 30-39.9) Right foot infection (Acute) Ambulatory dysfunction (Acute) Leukocytosis (Acute) ARJUN (acute kidney injury) (Acute) Elevated troponin (Acute) Lumbar stenosis with neurogenic claudication (Acute 09/06/13) Spondylosis of lumbar joint (Acute 09/06/13) Atrial fibrillation (Chronic 09/06/13) Cor pulmonale, chronic (Acute 09/06/13) Lumbar stenosis with neurogenic claudication Spondylosis of lumbar joint Social History Feels Safe at Home: Yes Smoking Status: Never smoker Review of Systems Review of Systems: All systems reviewed & are unremarkable except as noted in HPI & below Musculoskeletal: Exquisitely tender right lateral metacarpophalangeal joints and right forefoot area. No erythema or swelling noted Integumentary: Chronic venous insufficiency changes noted bilateral lower extremities below the knees Physical Exam Constitutional: WD/WN, vitals as above Eyes: PERRL, conjunctivae normal, anicteric sclerae ENMT: external ear and nose normal, oropharynx normal Neck: trachea midline, no thyromegaly Respiratory: normal respiratory effort, lungs clear to auscultation Cardiovascular: Rate/Rhythm: regular rate Heart Sounds: normal S1 and normal S2 Controlled irregular rhythm consistent with atrial fibrillation Gastrointestinal (Abdomen): normal bowel sounds, soft, nontender, no hepatosplenomegaly Musculoskeletal: Exquisitely tender right forefoot area especially right third fourth and fifth metacarpal phalangeal joint Skin: Chronic venous stasis changes bilateral lower extremities below the knees Neurologic: CN's II-XI intact bilaterally and moves all extremities; no focal motor deficits Results & Data Vital Signs (Past 12 Hours) Vital Signs Temp Pulse Pulse Resp BP BP Pulse Ox 10/16/18 18:22 67 20 107/55 L 96 10/16/18 17:01 94 10/16/18 16:36 36.8 C 67 18 117/66 92 Laboratory Results 10/16/18 17:04 10/16/18 17:04
[2018-10-16 19:59] LABS: Appearance Urine Cloudy (Clear); Bacteria Urine Automated 4+ (Negative); Bilirubin Urine Negative (Negative); Blood Urine 3+ (Negative); Color Urine Dark Yellow; Epithelial Cell Urine Auto 0-5 /lpf (0-5); Glucose Urine UA Negative (Negative); Ketones Urine Negative (Negative); Leukocyte Esterase Urine 3+ (Negative); Nitrite Urine Negative (Negative); Protein Urine 2+ (Negative); Specific Gravity Urine 1.019 (1.000-1.030); Urobilinogen Urine Negative (Negative); WBC Urine Automated >30 /hpf (0-5)
[2018-10-16 20:35] LABS: Cast Urine Automated 0 /lpf (0-5); RBC Urine Automated >30 /hpf (0-4)
[2018-10-16] MEDS ORDERED: ACETAMINOPHEN 325 MG TAB PO PRN (20:49)
[2018-10-16] MEDS ORDERED: ONDANSETRON INJ 2 MG/ML 2 ML VIAL IV PRN (20:49)
[2018-10-16] MEDS ORDERED: ALUMINUM/MAGNESIUM SUSP 30 ML UDC PO PRN (20:49)
[2018-10-16] MEDS: SODIUM CHLORIDE 0.9% 1000ML 1,000 ML IV SCH (22:03)
--- NOTE | 2018-10-16 22:47 | Emergency Department Note ---
Entered by Niki Hudson acting as a scribe for Nik Argueta MD History of Present Illness General Chief complaint: Weakness Stated complaint: VERY WEAK, CAN'T GET UP Source: patient and family () History of Present Illness Provider complaint: rigth foot pain Onset (ago): day(s) 2 Location: foot (right) Pain Consistency: + other (persistent ) Maximum Pain Intensity: 10 Associated symptoms: + other (+fatigue, +abdominal pain); no chest pain, no fever/chills (-fever), no headaches, no nausea/vomiting and no shortness of breath Treatments prior to arrival: none The patient is a 77 year old male who presents to the Emergency Room with complaints of persistent right foot pain. The patient states that the pain started 2 days ago that radiated from his toes to the arch of his foot. The patient states that he is unable to walk because of the pain and is experiencing generalized weakness. He did have some mild pain to the right upper abdomen several days ago but this is resolved. The patient denies any symptoms of chest pain, shortness of breath, vomiting, nausea, diarrhea, fever, or headache. The patient also reports that he has a lack of appetite from the pain and his last bowel movement was 2 days ago. He states that he has not taken any medication for the pain prior to arrival. Per the , the patient has had surgery on the right 8 years ago where he suffered from nerve damage. Home Medications Home Medications Medication Instructions Recorded Confirmed Type acetaminophen [Tylenol] 0 mg PO Q6H PRN 10/16/18 10/16/18 History allopurinol 200 mg PO QDL 10/16/18 10/16/18 History ascorbate calcium-bioflavonoid 1 tab PO QDD 10/16/18 10/16/18 History [Shante-C with Bioflavonoids] atenolol 25 mg PO QAM 10/16/18 10/16/18 History calcium carbonate [Calcium 600] 1,200 mg PO QDL 10/16/18 10/16/18 History cholecalciferol (vitamin D3) 2,000 unit PO QDD 10/16/18 10/16/18 History [Vitamin D3] docusate sodium [Colace] 100 mg PO UD 10/16/18 10/16/18 History furosemide 40 mg PO BID17 10/16/18 10/16/18 History methylprednisolone 4 mg PO UD 10/16/18 10/16/18 History metolazone 2.5 mg PO 3XWK 10/16/18 10/16/18 History zlucfvzt-agz-GS-lycopen-lutein 1 tab PO QAM 10/16/18 10/16/18 History [Centrum Silver] polyethylene glycol 3350 [Miralax] 17 g PO QAM 10/16/18 10/16/18 History potassium chloride 10 meq PO QDL 10/16/18 10/16/18 History potassium chloride 20 meq PO BIDM 10/16/18 10/16/18 History rivaroxaban [Xarelto] 15 mg PO QDD 10/16/18 10/16/18 History spironolactone 25 mg PO BIDM 10/16/18 10/16/18 History tamsulosin 0.4 mg PO QDD 10/16/18 10/16/18 History Allergies Allergy/AdvReac Type Severity Reaction Status Date / Time No Known Allergies Allergy Verified 10/16/18 18:51 Past Med/Surg History Medical History DVT prophylaxis Leukocytosis (Acute) Chronic CHF (Chronic) 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 (Acute) Acute on chronic kidney failure (Acute) Obesity (BMI 30-39.9) Right foot infection (Acute) Ambulatory dysfunction (Acute) Leukocytosis (Acute) ARJUN (acute kidney injury) (Acute) Elevated troponin (Acute) Lumbar stenosis with neurogenic claudication (Acute 09/06/13) Spondylosis of lumbar joint (Acute 09/06/13) Atrial fibrillation (Chronic 09/06/13) Cor pulmonale, chronic (Acute 09/06/13) Lumbar stenosis with neurogenic claudication Spondylosis of lumbar joint Social History Preferred Language: Dominican Communication Ability: Effective [employer]wind Instrument Repairer Required: No Beliefs That Will Affect Care: None Current Living Situation: Spouse Current Living Situation Comment: [facility]. Other Information That Helps Us Care for You: No Feels Safe at Home: Yes Safety Concerns: Feels Safe At This Time Smoking Status: Never smoker Hx Alcohol Use: Yes Alcohol type: beer Hx Substance Use: No Review of Systems See HPI for pertinent positives & negatives. and A total of 10 systems reviewed and were otherwise negative Physical Exam Vital Signs Vital Signs - 24 hr 10/16/18 16:36 10/16/18 17:01 10/16/18 18:22 Temperature 36.8 C Temperature Source Oral Sepsis Recent Fever Within 48 Hours No Sepsis New/Unexplained Change in Mental Status No Sepsis Action Taken by Nursing No Action Required Pulse Rate 67 Pulse Rate [Apical] 67 Pulse Rhythm [Apical] Regular Pulse Strength [Apical] Normal Respiratory Rate 18 20 Respiratory Effort / Characteristics Non-Labored Non-Labored Spontaneous Respiratory Depth Normal Normal Respiratory Pattern Regular Blood Pressure 117/66 Blood Pressure [Right Arm] 107/55 L Blood Pressure Mean 83 Blood Pressure Mean [Right Arm] 72 Blood Pressure Position [Right Arm] Lying Pulse Oximetry 92 94 96 Oxygen Delivery Method Room Air Room Air 10/16/18 18:58 Temperature Temperature Source Sepsis Recent Fever Within 48 Hours Sepsis New/Unexplained Change in Mental Status Sepsis Action Taken by Nursing Pulse Rate Pulse Rate [Apical] 69 Pulse Rhythm [Apical] Regular Pulse Strength [Apical] Normal Respiratory Rate 18 Respiratory Effort / Characteristics Non-Labored Spontaneous Respiratory Depth Normal Respiratory Pattern Regular Blood Pressure Blood Pressure [Right Arm] 109/57 L Blood Pressure Mean Blood Pressure Mean [Right Arm] 74 Blood Pressure Position [Right Arm] Lying Pulse Oximetry 94 Oxygen Delivery Method Room Air Constitutional: Vital signs reviewed. Eyes: Pupils are equal round reactive to light. Conjunctiva are noninjected. ENT: Pharynx is clear without erythema or exudate. Mucous membranes are moist. Neck supple without meningeal signs. Respiratory: Clear to auscultation bilaterally. Breath sounds are equal bilaterally. Cardiovascular: Regular rate with irregularly irregular rhythm. No rubs or choi ps. GI: Soft, nondistended and nontender. Bowel sounds are present. No right upper quadrant tenderness. Musculoskeletal: Tenderness to right fore foot without erythema or significant swelling. Increased warmth to entire right leg. No tenderness to ankle. Normal distal pulse. Integumentary: No cyanosis. Neurological: The patient is awake and alert. No focal deficits. Psychiatric: Normal affect. Course 1648: The patient was evaluated in room B4B, and a complete history and physical examination were performed. 1747: I reevaluated the patient and I discussed his test results. The patient's leg is less warm, but his foot is still warm to the touch. 1749: I discussed the patient's case with Dr. Jones [facility], where he evaluated the patient. 175: I reevaluated the patient and he denies any chest pain and shortness of breath. 180: I reviewed the patient's case with Dr. Irene. He will evaluate the patient for further management. Reevaluation(s) Reevaluation #1: I discussed the patient's case with Dr. Alonzo SALCEDO, where he evaluated the patient. Time: 17:50 Administered Medications Sodium Chloride (Nss 1000ml) 1,000 mls @ 80 mls/hr IV .[id number] CARLO Stop: 11/15/18 20:48 Last Admin: 10/16/18 22:03 Dose: 80 mls/hr Documented by: [id number] Discontinued Medications Colchicine (Colcrys) 0.6 mg PO NOW ONE Stop: 10/16/18 18:33 Last Admin: 10/16/18 18:57 Dose: 0.6 mg Documented by: [id number] Sodium Chloride (Nss) 500 mls @ 999 mls/hr IV .Q31M CARLO Stop: 10/16/18 17:30 Last Infusion: 10/16/18 17:44 Dose: 0 mls/hr Documented by: [id number] Admin: 10/16/18 17:13 Dose: 999 mls/hr Documented by: [id number] Vancomycin HCl 2,000 mg/ (Sodium Chloride) 540 mls @ 200 mls/hr IV NOW ONE; Protocol Stop: 10/16/18 20:29 Last Infusion: 10/16/18 18:27 Dose: 0 mls/hr Documented by: [id number] Admin: 10/16/18 18:14 Dose: 200 mls/hr Documented by: [id number] Methylprednisolone (Solumedrol) 60 mg IV NOW STA Stop: 10/16/18 18:33 Last Admin: 10/16/18 18:57 Dose: 60 mg Documented by: [id number] Morphine Sulfate (Morphine Sulfate) 2 mg IV NOW STA Stop: 10/16/18 17:00 Last Admin: 10/16/18 17:12 Dose: 2 mg Documented by: [id number] Morphine Sulfate (Morphine Sulfate) 2 mg IV NOW STA Stop: 10/16/18 18:33 Last Admin: 10/16/18 18:57 Dose: 2 mg Documented by: [id number] Ondansetron HCl (Zofran) 4 mg IV NOW STA Stop: 10/16/18 17:00 Last Admin: 10/16/18 17:13 Dose: 4 mg Documented by: [id number] Medical Decision Making Differential Diagnosis Differentials include generalized weakness, infection, osteomyelitis, cellulitis. Medical Records Attestation: I reviewed the patient's medical records. I did perform a limited focused review of portions of the patient's old chart on the electronic medical record. The patient sees pain management for his lumbar stenosis. Home Medications Current Medication List: was personally reviewed by me Laboratory Data Attestation: I reviewed the patient's lab results. Result diagrams: 10/16/18 17:04 10/16/18 17:04 Lab Results 10/16/18 10/16/18 10/16/18 Range/Units 17:04 17:04 17:04 WBC 20.86 H (4.8-10.8) K/uL RBC 4.29 L (4.7-6.1) M/uL Hgb 15.0 (14.0-18.0) g/dL Hct 42.6 (42-52) % MCV 99.3 (80-100) fL MCH 35.0 H (25-34) pg MCHC 35.2 (32-36) g/dL RDW Std Deviation 54.0 H (36.4-46.3) fL RDW Coeff of Anthony 14.9 H (11.5-14.5) % Plt Count 122 L (130-400) K/uL MPV 11.6 H (7.4-10.4) fL Immature Gran % (Auto) 0.7 % Neut % (Auto) 88.1 % Lymph % (Auto) 2.3 % [place] % (Auto) 8.9 % Eos % (Auto) 0.0 % Baso % (Auto) 0.0 % Immature Gran # (Auto) 0.15 H (0.00-0.02) K/uL Neut # (Auto) 18.34 H (1.4-6.5) K/uL Lymph # (Auto) 0.49 L (1.2-3.4) K/uL [place] # (Auto) 1.86 H (0.11-0.59) K/uL Eos # (Auto) 0.01 (0-0.5) K/uL Baso # (Auto) 0.01 (0-0.2) K/uL ESR 66 H (0-14) mm/hr Sodium 133 L (136-145) mmol/L Potassium 4.9 (3.5-5.1) mmol/L Chloride 99 (98-107) mmol/L Carbon Dioxide 23 (21-32) mmol/L Anion Gap 11.0 (3-11) BUN 74 H (7-18) mg/dl Creatinine 2.37 H (0.6-1.4) mg/dl Est Cr Clr Drug Dosing 31.1 ml/min Est GFR ( Amer) 29.5 Est GFR (Non-Af Amer) 25.5 BUN/Creatinine Ratio 31.4 H (10-20) Glucose 120 H (70-99) mg/dl POC Lactic Acid Tristin (0.90-1.70) mmol/L Uric Acid 5.1 (2.6-7.2) mg/dl Calcium 10.0 (8.5-10.1) mg/dl Total Bilirubin 1.3 H (0.2-1) mg/dl AST 22 (15-37) U/L ALT 19 (12-78) U/L Alkaline Phosphatase 43 L (45-117) U/L Troponin I 0.075 H* (0-0.045) ng/ml Total Protein 7.7 (6.4-8.2) gm/dl Albumin 3.5 (3.4-5.0) gm/dl Globulin 4.2 H (2.5-4.0) gm/dl Albumin/Globulin Ratio 0.8 L (0.9-2) TSH 3.640 (0.300-4.500) uIu/ml 10/16/18 Range/Units 18:16 WBC (4.8-10.8) K/uL RBC (4.7-6.1) M/uL Hgb (14.0-18.0) g/dL Hct (42-52) % MCV (80-100) fL MCH (25-34) pg MCHC (32-36) g/dL RDW Std Deviation (36.4-46.3) fL RDW Coeff of Anthony (11.5-14.5) % Plt Count (130-400) K/uL MPV (7.4-10.4) fL Immature Gran % (Auto) % Neut % (Auto) % Lymph % (Auto) % [place] % (Auto) % Eos % (Auto) % Baso % (Auto) % Immature Gran # (Auto) (0.00-0.02) K/uL Neut # (Auto) (1.4-6.5) K/uL Lymph # (Auto) (1.2-3.4) K/uL [place] # (Auto) (0.11-0.59) K/uL Eos # (Auto) (0-0.5) K/uL Baso # (Auto) (0-0.2) K/uL ESR (0-14) mm/hr Sodium (136-145) mmol/L Potassium (3.5-5.1) mmol/L Chloride (98-107) mmol/L Carbon Dioxide (21-32) mmol/L Anion Gap (3-11) BUN (7-18) mg/dl Creatinine (0.6-1.4) mg/dl Est Cr Clr Drug Dosing ml/min Est GFR ( Amer) Est GFR (Non-Af Amer) BUN/Creatinine Ratio (10-20) Glucose (70-99) mg/dl POC Lactic Acid Tristin 1.67 (0.90-1.70) mmol/L Uric Acid (2.6-7.2) mg/dl Calcium (8.5-10.1) mg/dl Total Bilirubin (0.2-1) mg/dl AST (15-37) U/L ALT (12-78) U/L Alkaline Phosphatase (45-117) U/L Troponin I (0-0.045) ng/ml Total Protein (6.4-8.2) gm/dl Albumin (3.4-5.0) gm/dl Globulin (2.5-4.0) gm/dl Albumin/Globulin Ratio (0.9-2) TSH (0.300-4.500) uIu/ml Imaging Data Radiologist's Impression: Radiology results as stated below per my review and the radiologist's interpretation: XR chest 1V portable CLINICAL HISTORY: weakness dyspnea COMPARISON STUDY: 12/22/2016 FINDINGS: Stable cardiomegaly. Diaphragms are smooth. Chronic blunting left lateral costophrenic angle. Lungs appear clear. IMPRESSION: Chronic change. No acute process. The above report was generated using voice recognition software. It may contain grammatical, syntax or spelling errors. Electronically signed by: Andrez Tolliver M.D. 10/16/2018 5:31 PM XR foot RT min 3V routine CLINICAL HISTORY: pain eval for osteo pain COMPARISON: None. DISCUSSION: Generalized moderate degenerative change. No evidence for lytic or blastic process. Heel spur. There is no evidence for soft tissue swelling. IMPRESSION: Degenerative change. Heel spur. No acute process. The above report was generated using voice recognition software. It may contain grammatical, syntax or spelling errors. Electronically signed by: Andrez Tolliver M.D. 10/16/2018 5:32 PM ECG Data Attestation: I personally reviewed and interpreted this ECG as follows: Indication: weakness Rate (beats per minute): 70 Rhythm: atrial fibrillation Findings: + left axis deviation; no ST elevation Blood Pressure Blood Pressure Findings: Normal blood pressure MDM Narrative I did evaluate the patient as noted above. Patient is presenting with a 2-day history of right foot pain. He is unable to ambulate because of pain. He also suffers from generalized weakness as he has not been eating or drinking for the past 2 days. He denies vomiting but states that he just has no appetite and refused to eat or drink. He did have some right-sided pain but on exam today he has no right upper quadrant abdominal pain to suggest a gallbladder issue. He does have significant warmth to the right leg which his states is normal for him. He does have tenderness to the forefoot. This is mostly over the second MTP. IV access was established. The patient was placed on a continuous telemetry monitor. I did treat the patient with IV morphine and Zofran. I did order and personally review the patient's 12-lead EKG as described above. He has atrial fibrillation without acute ischemic changes. I did order and personally reviewed the images of the patient's chest/foot x-ray as described above. He has no signs of pneumonia. There is no fracture or ostial lifting on the x-ray. I did order a urine analysis. He does appear to have some signs of infection. I did order and review the patient's blood work as noted in the electronic medical record. His white count is 20,000 but he is on steroids. Creatinine is elevated 2.37. His baseline is about 1.6. He does have mild hyponatremia. His troponin was slightly elevated but he denies having any chest pain or shortness of breath. This may be secondary to his acute kidney injury. He will need repeat troponins. I did treated with normal saline IV. I did treat the patient with vancomycin IV. I did discuss the test results with the patient and his . On reexamination his right leg is not as warm but his foot is still warm and quite tender. I did recommend hospitalization for further care and evaluation. Also the patient cannot go home because he cannot Ambien the pain in his foot and generalized weakness. I did discuss case with the hospitalist and continuous pillowcase cutter. Impression & Plan Right foot infection, Ambulatory dysfunction, Leukocytosis, ARJUN (acute kidney injury), Elevated troponin Discharge Plan Visit Data *Final* Discharge Date/Time: 10/16/18 20:22 Chief Complaint: Weakness Stated Complaint: VERY WEAK, CAN'T GET UP ED Provider: Nik Argueta Discharge Problem: Right foot infection, Ambulatory dysfunction, Leukocytosis, ARJUN (acute kidney injury), Elevated troponin Patient Disposition: Admitted As Inpatient Discharge Instructions Interventions: ED Discharge Assessment Last Done: 10/16/18 20:22 Discharge Problem: Leukocytosis Qualifiers: Leukocytosis type: unspecified Qualified Code(s): D72.829 - Elevated white blood cell count, unspecified The scribe's documentation has been prepared under my direction and personally reviewed by me in its entirety. I confirm that the note above accurately reflects all work, treatment, procedures, and medical decision making performed by me.
[2018-10-16] MEDS: TAMSULOSIN HCL 0.4 MG CAP PO SCH (22:56)
[2018-10-16] MEDS: COLCHICINE 0.6 MG TAB PO SCH (22:56)
[2018-10-17] MEDS: methylPREDNISolone 40 MG in SYRINGE 0 ML IV SCH ×2 (01:18→08:52)
[2018-10-17] MEDS: COLCHICINE 0.6 MG TAB PO SCH ×3 (01:18→04:42)
[2018-10-17] MEDS ORDERED: PIPERACILL/TAZOBAC CONSULT ACTIVE PRN (05:04)
--- NOTE | 2018-10-17 05:11 | Progress Note ---
Date of Service October 17, 2018 Assessment & Plan (1) Gram-negative bacteremia: Blood cultures came back, gram neg bacilli - Chart reviewed, urine likely source, follow Ucx - Started on Zosyn, renally dosed, continue IVF Results & Data Vital Signs (Past 12 Hours) Vital Signs Temp Pulse Pulse Resp BP BP Pulse Ox 10/17/18 03:14 36.8 C 55 L 18 112/63 97 10/17/18 00:01 36.6 C 68 16 114/60 95 10/16/18 20:30 72 16 130/73 94 10/16/18 20:22 68 18 115/65 94 10/16/18 18:58 69 18 109/57 L 94 10/16/18 18:22 67 20 107/55 L 96
[2018-10-17] MEDS ORDERED: PIPERACILLIN/TAZOBACTAM 4.5 GM in DEXTROSE 5% 100 ML IV STA (05:15)
[2018-10-17 06:18] LABS: Hematocrit (blood only) 42.8 % (42-52); Hemoglobin 14.5 g/dL (14.0-18.0); Mean Corpuscular Hgb Conc 33.9 g/dL (32-36); Mean Corpuscular Volume 100.2 fL (80-100); Mean Platelet Volume 12.2 fL (7.4-10.4); Platelet Count 98 K/uL (130-400); RDW Standard Deviation 54.8 fL (36.4-46.3); Red Blood Count 4.27 M/uL (4.7-6.1); White Blood Count 21.56 K/uL (4.8-10.8)
[2018-10-17 06:19] LABS: BUN Creatinine Ratio 35.2 (10-20); Basophils # (auto) 0.01 K/uL (0-0.2); Calcium 9.3 mg/dl (8.5-10.1); Creatinine Clr Calc Pharmacy 31.8 ml/min; Est GFR (African American) 30.6; Est GFR (Non-African American) 26.4; Immature Granulocytes # (auto) 0.21 K/uL (0.00-0.02); Lymphocytes # (auto) 0.55 K/uL (1.2-3.4); Lymphocytes % (auto) 2.6 %; Monocytes # (auto) 0.69 K/uL (0.11-0.59); Monocytes % (auto) 3.2 %; Neutrophils % (auto) 93.2 %; Platelet Estimate Decreased (Normal); Potassium 5.3 mmol/L (3.5-5.1); RBC Morphology Unremarkable
[2018-10-17 06:27] LABS: Troponin I 0.053 ng/ml (0-0.045)
[2018-10-17] MEDS: MoRPHine SULFATE 2 MG/ML CARP IV PRN ×2 (08:51→16:55)
[2018-10-17] MEDS: ALLOPURINOL 100 MG TAB PO SCH (08:52)
[2018-10-17] MEDS ORDERED: ATENOLOL 25 MG TABLET PO SCH (09:00)
[2018-10-17] MEDS ORDERED: SODIUM POLYSTYRENE SULFONATE 15G/60ML SUSP PO STA (09:06)
[2018-10-17] MEDS: PIPERACILLIN/TAZOBACTAM 4.5 GM in DEXTROSE 5% 100 ML IV SCH ×2 (09:43→17:11)
[2018-10-17] MEDS: POLYETHYLENE (MIRALAX) 17 GM PACK PO SCH (09:43)
--- NOTE | 2018-10-17 09:58 | Hospitalist Progress Note ---
Date of Service October 17, 2018 Assessment & Plan (1) Generalized weakness: He presented with generalized weakness and fatigue along with low urine output and poor appetite x2 days Found to have UTI and gram-negative jerman bacteremia as below. Also presented with severe right foot pain with gout attack as below -Treat infection and weakness should improve PT/OT consults placed (2) Gram-negative bacteremia: GNR in 2/2 bottles, urine is the source as urine culture also growing gram-negative rods at this point He had Klebsiella oxytoca growing in his urine culture from 07/2018-it is unclear if this was treated but the patient does not recall taking antibiotics at that time. He does not report having any urinary symptoms prior to the last several days with the blood in the urine and the right-sided flank pain. He does have a large kidney stone in the right kidney-unsure if this is playing a role in his UTI? Consider urological evaluation but will hold off at this time -Follow urine cultures and blood cultures -Continue Zosyn -Repeat blood cultures today (3) UTI (urinary tract infection): As above, presented with blood in the urine and dark urine with low urine output and generalized fatigue x2 days. UA grossly abnormal -Continue Zosyn -Follow-up on urine culture Renal ultrasound shows stone but no evidence of pyelonephritis Does have a history of prostate cancer that is being observed at this time (4) Acute on chronic kidney failure: With significantly elevated BUN and creatinine at 81 and 2.7 on repeat labs this afternoon-continues to worsen Seems to be prerenal likely due to infection and poor p.o. intake with dehydration in the setting of continued diuretic use Urine output is low normal at this time Renal ultrasound without evidence of obstruction He does also have a urinary tract infection with right flank pain which could be contributing to his renal failure -Continue to hold Lasix, metolazone, and spironolactone. -Check urine sodium and urine creatinine to calculate FeNa -Continue judicious administration of IV fluids due to history of chronic diastolic CHF which currently is stable. -Monitor urine output and daily renal function status. 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 Llamas -Avoid nephrotoxins -Renally dose medications (5) 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: Presented with a severely painful right forefoot with clinical signs and symptoms of acute gout attack Was treated upon admission with several doses of colchicine and IV Fakl-Amnelq-xyctr gout attack is now completely resolved on examination -Continue to treat underlying renal failure as above -DC IV Solu-Medrol and convert to prednisone 40 mg daily to complete a one-week course -Continue allopurinol 100 mg daily (6) Atrial fibrillation: Chronic. With bradycardia after admission likely secondary to atenolol use in the setting of ARJUN as atenolol is renally excreted -hold atenolol -Continue Xarelto -follow on tele (7) Chronic CHF: Chronic diastolic CHF-currently stable. Diuretics are on hold to include Lasix, spironolactone, and metolazone. -Using judicious administration of intravenous fluids for acute on chronic kidney disease as above -Monitor intake and output, daily weights (8) Leukocytosis: WBC count was 20 on admission and was likely due to UTI and bacteremia as above He was also placed on IV Solu-Medrol after admission as above and therefore WBC count still elevated today -Interestingly, his left foot now appears erythematous almost like a cellulitis, but he is having no pain at all in that foot-question of has cellulitis? -Follow CBC -Treating with Zosyn for UTI and bacteremia as above -Follow left foot erythema as well (9) Elevated troponin: Mildly elevated troponin 0.075/0 0.087/0.053 which is likely secondary to myocardial demand ischemia in the setting of acute illness He has no ischemic changes on his ECG -No need for further work-up (10) Hyponatremia: Sodium 133 now down to 130-likely secondary to acute kidney injury -Treating with IV fluids -Follow BMP in the morning (11) Hyperkalemia: Potassium 5.3 this morning and is likely secondary to acute kidney injury -All potassium supplements from home are on hold -Give Kayexalate 30 g p.o. x1 now -Repeat BMP this afternoon now improved -Follow BMP in the morning (12) Lumbar stenosis with neurogenic claudication: Long-standing issue with history of back surgery (13) Ambulatory dysfunction: Secondary to generalized weakness from acute illness in the setting of chronic lower back pain issues PT/OT consultations ordered (14) Prostate cancer: Diagnosed in 2017 and follows with urology, Dr. Blanco-has chosen to undergo observation therapy -Continues on tamsulosin (15) Pulmonary hypertension: RVSP greater than 60 on echocardiogram from 2018 -On multiple diuretics (16) Thrombocytopenia: Platelets dropped down to 98 from 122-could be from acute illness, but has low normal platelets chronically Also has macrocytosis Question of has B12 deficiency? 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 Was recommended to have follow-up imaging in 1 year-I do not see evidence of this -Needs follow-up imaging routinely as an outpatient (18) DVT prophylaxis: Continue Xarelto therapy, renally dosed Disposition-remain hospitalized PT/OT consults placed He lives at [facility] independently, but could go to the senior living portion if needed after discharge Subjective Patient is feeling very fatigued and still generally weak. Appetite is low. He has been sleeping a lot but does wake up. He reports that his urine started turning very dark and seemed like he had blood in it starting 3 days ago. He is having some right-sided flank pain that started this morning but is now improved after taking Tylenol. He reports he keeps very close tabs on his urine output at home and noted decreased urine output the last few days prior to admission. He denies fevers, chills, or sweats at home. Today his right foot pain is almost completely resolved. Telemetry atrial fibrillation with rates in the 50s and 60s but did have some bradycardia with a 3.6 second pause Review of Systems Review of Systems: All systems reviewed & are unremarkable except as noted in HPI & below Physical Exam Constitutional: WD/WN, vitals as above + obese Eyes: PERRL, conjunctivae normal, anicteric sclerae Neck: trachea midline, no thyromegaly Respiratory: normal respiratory effort, lungs clear to auscultation Cardiovascular: Rate/Rhythm: + bradycardic and + irregularly irregular Heart Sounds: no murmur Extremities: + edema (trace pitting edema) Gastrointestinal (Abdomen): Inspection/Auscultation: normal bowel sounds; + abdomen abnormal to inspection (Incisional scar in the midline) and abdomen not distended Percussion/Palpation: + abdomen tender (Positive right flank tenderness, no guarding or rebound) and abdomen soft Musculoskeletal: Extremities: no cyanosis and no clubbing Right foot with out erythema, no tenderness to palpation, full range of motion of ankle and toes at previous site of pain Right leg and foot are cool to the touch but with 2+ dorsalis pedis pulse Left leg is warm to the touch and with mild erythema of the ankle and foot diffusely, 2+ dorsalis pedis pulse, nontender Skin: + rash (Chronic venous stasis changes with hemosiderin deposits on legs bilaterally) and + erythema (Left foot with erythema and warmth but no tenderness at all) Neurologic: moves all extremities and awake; no focal motor deficits Psychiatric: A+Ox3, euthymic affect Genitourinary: + CVA tenderness (On the right); no penis abnormality and no scrotum abnormality Results & Data Vital Signs (Past 12 Hours) Vital Signs Temp Pulse Pulse Resp BP Pulse Ox 10/17/18 07:58 36.6 C 54 L 18 122/56 L 97 10/17/18 07:22 52 L 10/17/18 03:14 36.8 C 55 L 18 112/63 97 10/17/18 00:01 36.6 C 68 16 114/60 95 Laboratory Results 10/17/18 10/17/18 10/16/18 Range/Units 05:20 05:20 21:48 WBC 21.56 H (4.8-10.8) K/uL RBC 4.27 L (4.7-6.1) M/uL Hgb 14.5 (14.0-18.0) g/dL Hct 42.8 (42-52) % MCV 100.2 H (80-100) fL MCH 34.0 (25-34) pg MCHC 33.9 (32-36) g/dL RDW Std Deviation 54.8 H (36.4-46.3) fL RDW Coeff of Anthony 15.0 H (11.5-14.5) % Plt Count 98 L (130-400) K/uL MPV 12.2 H (7.4-10.4) fL Immature Gran % (Auto) 1.0 % Neut % (Auto) 93.2 % Lymph % (Auto) 2.6 % Luce % (Auto) 3.2 % Eos % (Auto) 0.0 % Baso % (Auto) 0.0 % Immature Gran # (Auto) 0.21 H (0.00-0.02) K/uL Neut # (Auto) 20.10 H (1.4-6.5) K/uL Lymph # (Auto) 0.55 L (1.2-3.4) K/uL Luce # (Auto) 0.69 H (0.11-0.59) K/uL Eos # (Auto) 0.00 (0-0.5) K/uL Baso # (Auto) 0.01 (0-0.2) K/uL Platelet Estimate Decreased L (Normal) RBC Morphology Unremarkable ESR (0-14) mm/hr Sodium 131 L (136-145) mmol/L Potassium 5.3 H (3.5-5.1) mmol/L Chloride 99 (98-107) mmol/L Carbon Dioxide 25 (21-32) mmol/L Anion Gap 7.0 (3-11) BUN 81 H (7-18) mg/dl Creatinine 2.30 H (0.6-1.4) mg/dl Est Cr Clr Drug Dosing 31.8 ml/min Est GFR ( Amer) 30.6 Est GFR (Non-Af Amer) 26.4 BUN/Creatinine Ratio 35.2 H (10-20) Glucose 127 H (70-99) mg/dl POC Lactic Acid Tristin (0.90-1.70) mmol/L Uric Acid (2.6-7.2) mg/dl Calcium 9.3 (8.5-10.1) mg/dl Total Bilirubin (0.2-1) mg/dl AST (15-37) U/L ALT (12-78) U/L Alkaline Phosphatase (45-117) U/L Troponin I 0.053 H* 0.082 H* (0-0.045) ng/ml Total Protein (6.4-8.2) gm/dl Albumin (3.4-5.0) gm/dl Globulin (2.5-4.0) gm/dl Albumin/Globulin Ratio (0.9-2) TSH (0.300-4.500) uIu/ml Urine Color Urine Appearance (Clear) Urine pH (4.5-7.5) Ur Specific [place] (1.000-1.030) Urine Protein (Negative) Urine Glucose (UA) (Negative) Urine Ketones (Negative) Urine Blood (Negative) Urine Nitrite (Negative) Urine Bilirubin (Negative) Urine Urobilinogen (Negative) Ur Leukocyte Esterase (Negative) Urine WBC (Auto) (0-5) /hpf Urine RBC (Auto) (0-4) /hpf U Hyaline Cast (Auto) (0-5) /lpf U Epithel Cells (Auto) (0-5) /lpf Urine Bacteria (Auto) (Negative) Urine Yeast 10/16/18 10/16/18 10/16/18 Range/Units 19:24 18:16 17:04 WBC (4.8-10.8) K/uL RBC (4.7-6.1) M/uL Hgb (14.0-18.0) g/dL Hct (42-52) % MCV (80-100) fL MCH (25-34) pg MCHC (32-36) g/dL RDW Std Deviation (36.4-46.3) fL RDW Coeff of Anthony (11.5-14.5) % Plt Count (130-400) K/uL MPV (7.4-10.4) fL Immature Gran % (Auto) % Neut % (Auto) % Lymph % (Auto) % Luce % (Auto) % Eos % (Auto) % Baso % (Auto) % Immature Gran # (Auto) (0.00-0.02) K/uL Neut # (Auto) (1.4-6.5) K/uL Lymph # (Auto) (1.2-3.4) K/uL Luce # (Auto) (0.11-0.59) K/uL Eos # (Auto) (0-0.5) K/uL Baso # (Auto) (0-0.2) K/uL Platelet Estimate (Normal) RBC Morphology ESR 66 H (0-14) mm/hr Sodium (136-145) mmol/L Potassium (3.5-5.1) mmol/L Chloride (98-107) mmol/L Carbon Dioxide (21-32) mmol/L Anion Gap (3-11) BUN (7-18) mg/dl Creatinine (0.6-1.4) mg/dl Est Cr Clr Drug Dosing ml/min Est GFR ( Amer) Est GFR (Non-Af Amer) BUN/Creatinine Ratio (10-20) Glucose (70-99) mg/dl POC Lactic Acid Tristin 1.67 (0.90-1.70) mmol/L Uric Acid (2.6-7.2) mg/dl Calcium (8.5-10.1) mg/dl Total Bilirubin (0.2-1) mg/dl AST (15-37) U/L ALT (12-78) U/L Alkaline Phosphatase (45-117) U/L Troponin I (0-0.045) ng/ml Total Protein (6.4-8.2) gm/dl Albumin (3.4-5.0) gm/dl Globulin (2.5-4.0) gm/dl Albumin/Globulin Ratio (0.9-2) TSH (0.300-4.500) uIu/ml Urine Color Dark Yellow Urine Appearance Cloudy A (Clear) Urine pH 6.0 (4.5-7.5) Ur Specific [place] 1.019 (1.000-1.030) Urine Protein 2+ H (Negative) Urine Glucose (UA) Negative (Negative) Urine Ketones Negative (Negative) Urine Blood 3+ H (Negative) Urine Nitrite Negative (Negative) Urine Bilirubin Negative (Negative) Urine Urobilinogen Negative (Negative) Ur Leukocyte Esterase 3+ H (Negative) Urine WBC (Auto) >30 H (0-5) /hpf Urine RBC (Auto) >30 H (0-4) /hpf U Hyaline Cast (Auto) 0 (0-5) /lpf U Epithel Cells (Auto) 0-5 (0-5) /lpf Urine Bacteria (Auto) 4+ H (Negative) Urine Yeast Not Reportable 10/16/18 10/16/18 Range/Units 17:04 17:04 WBC 20.86 H (4.8-10.8) K/uL RBC 4.29 L (4.7-6.1) M/uL Hgb 15.0 (14.0-18.0) g/dL Hct 42.6 (42-52) % MCV 99.3 (80-100) fL MCH 35.0 H (25-34) pg MCHC 35.2 (32-36) g/dL RDW Std Deviation 54.0 H (36.4-46.3) fL RDW Coeff of Anthony 14.9 H (11.5-14.5) % Plt Count 122 L (130-400) K/uL MPV 11.6 H (7.4-10.4) fL Immature Gran % (Auto) 0.7 % Neut % (Auto) 88.1 % Lymph % (Auto) 2.3 % Luce % (Auto) 8.9 % Eos % (Auto) 0.0 % Baso % (Auto) 0.0 % Immature Gran # (Auto) 0.15 H (0.00-0.02) K/uL Neut # (Auto) 18.34 H (1.4-6.5) K/uL Lymph # (Auto) 0.49 L (1.2-3.4) K/uL Luce # (Auto) 1.86 H (0.11-0.59) K/uL Eos # (Auto) 0.01 (0-0.5) K/uL Baso # (Auto) 0.01 (0-0.2) K/uL Platelet Estimate (Normal) RBC Morphology ESR (0-14) mm/hr Sodium 133 L (136-145) mmol/L Potassium 4.9 (3.5-5.1) mmol/L Chloride 99 (98-107) mmol/L Carbon Dioxide 23 (21-32) mmol/L Anion Gap 11.0 (3-11) BUN 74 H (7-18) mg/dl Creatinine 2.37 H (0.6-1.4) mg/dl Est Cr Clr Drug Dosing 31.1 ml/min Est GFR ( Amer) 29.5 Est GFR (Non-Af Amer) 25.5 BUN/Creatinine Ratio 31.4 H (10-20) Glucose 120 H (70-99) mg/dl POC Lactic Acid Tristin (0.90-1.70) mmol/L Uric Acid 5.1 (2.6-7.2) mg/dl Calcium 10.0 (8.5-10.1) mg/dl Total Bilirubin 1.3 H (0.2-1) mg/dl AST 22 (15-37) U/L ALT 19 (12-78) U/L Alkaline Phosphatase 43 L (45-117) U/L Troponin I 0.075 H* (0-0.045) ng/ml Total Protein 7.7 (6.4-8.2) gm/dl Albumin 3.5 (3.4-5.0) gm/dl Globulin 4.2 H (2.5-4.0) gm/dl Albumin/Globulin Ratio 0.8 L (0.9-2) TSH 3.640 (0.300-4.500) uIu/ml Urine Color Urine Appearance (Clear) Urine pH (4.5-7.5) Ur Specific [place] (1.000-1.030) Urine Protein (Negative) Urine Glucose (UA) (Negative) Urine Ketones (Negative) Urine Blood (Negative) Urine Nitrite (Negative) Urine Bilirubin (Negative) Urine Urobilinogen (Negative) Ur Leukocyte Esterase (Negative) Urine WBC (Auto) (0-5) /hpf Urine RBC (Auto) (0-4) /hpf U Hyaline Cast (Auto) (0-5) /lpf U Epithel Cells (Auto) (0-5) /lpf Urine Bacteria (Auto) (Negative) Urine Yeast Diagnostic Findings Renal ultrasound: RENAL ULTRASOUND HISTORY: acute kidney injury, UTI COMPARISON: Abdominal MRI 03/25/2017. FINDINGS: Right kidney: 11.7 cm. No hydronephrosis. Normal corticomedullary differentiation and cortical thickness. A 2.9 cm cyst. A 1.1 cm stone Left kidney: 12.0 cm. No hydronephrosis. Normal corticomedullary differentiation and cortical thickness. Bladder: Not well distended. No definite bladder wall thickening. The ureteral jets are not identified. IMPRESSION: 1. No hydronephrosis. 2. Right-sided nephrolithiasis. 3. A 2.9 cm right renal cyst. (1) Chronic CHF Heart failure type: diastolic Qualified Code(s): I50.32 - Chronic diastolic (congestive) heart failure
--- NOTE | 2018-10-17 10:27 | Ultrasound Report ---
RENAL ULTRASOUND HISTORY: acute kidney injury, UTI COMPARISON: Abdominal MRI 03/25/2017. FINDINGS: Right kidney: 11.7 cm. No hydronephrosis. Normal corticomedullary differentiation and cortical thickn ess. A 2.9 cm cyst. A 1.1 cm stone Left kidney: 12.0 cm. No hydronephrosis. Normal corticomedullary differentiation and cortical thickne ss. Bladder: Not well distended. No definite bladder wall thickening. The ureteral jets are not identifie d. IMPRESSION: 1. No hydronephrosis. 2. Right-sided nephrolithiasis. 3. A 2.9 cm right renal cyst. Electronically signed by: Richard Torres M.D. 10/17/2018 10:26 AM
[2018-10-17] MEDS: SODIUM CHLORIDE 0.9% 1000ML 1,000 ML IV SCH (10:55)
[2018-10-17 15:35] LABS: BUN Creatinine Ratio 29.4 (10-20); Creatinine Clr Calc Pharmacy 26.7 ml/min; Est GFR (African American) 24.8; Est GFR (Non-African American) 21.4; Potassium 4.8 mmol/L (3.5-5.1)
[2018-10-17] MEDS: RIVAROXABAN 15 MG TAB PO SCH (16:58)
--- NOTE | 2018-10-17 20:05 | Nephrology Consultation ---
Date of Consultation October 17, 2018 Assessment & Plan (1) Acute on chronic kidney failure: -- Clinically consistent with pre-renal physiology and ATN -- No currently in decompensated CHF -- Continue IVF to maintain slightly positive fluid balance -- Change NaCl to balanced IVF -- Diuretics held -- Renal US without obstruction: 3 cm cysts and 1 cm stone in right kidney -- UA consistent with dehydration and infection -- Medications are appropriately dosed for kidney function -- No current indication for dialysis (2) Gram-negative bacteremia: -- + GNR in blood and urine -- Remains on Zosyn -- Suspicion remains for joint or soft tissue infection in foot which is being monitored (3) UTI (urinary tract infection): -- As above (4) 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: -- Improved with treatment (5) Atrial fibrillation: -- Monitor use of Xarelto in renal failure -- Atenolol held due to bradycardia (6) Chronic CHF: -- Diuretics held (7) Leukocytosis: (8) Hyponatremia: -- Encourage solute intake -- Monitor (9) Hyperkalemia: -- Low potassium diet -- Treated with SPS this AM (10) Lumbar stenosis with neurogenic claudication: (11) Pulmonary hypertension: History of Present Illness Reason for Consultation: ARJUN/CKD Requesting Physician: Corinne Cerrato MD Attending Physician: Corinne Cerrato MD History of Present Illness Mr. Mauricio Lundberg is a 77-year-old male with chronic kidney disease who I follow in the CKD clinic in [facility]. Dr. Cerrato called me this evening regarding ARJUN. Baseline creatinine has been 1.3-1.5 mg/dL. Creatinine increased from 2.3 to 2.7 mg/dL in the past 24 hours. The patient was treated with SPS today for a serum potassium of 5.3 mmol/L. Urine output today has been 700 ml. Mr. Lundberg was seen and evaluated this evening with his at the bedside. The patient presented to the ER at [facility] yesterday with significant fatigue, lethargy, and right foot pain. He developed progressive severe right pain several days prior to admission. There was no trauma or injury. He was not able to bear weight. The foot was warm to touch. He denies any effusion or swelling. There as no erythema. This was different than prior episodes of gout. Appetite was very poor. He continued to take diuretics but had minimal to eat or drink for several days. Mauricio was diagnosed with dehydration and gout. Vancomycin was given in the ED. Zosyn has been continue during the hospitalization for UTI and now gram negative bacteremia. Gout in the foot was treated with steroids and Colchicine. In May, creatinine was found to be 1.7 to 2.0 mg/dL on repeat testing. Metabolic profile otherwise notable for hyponatremia and otherwise normal electrolytes. Diuretics were adjusted for prerenal azotemia. Metolazone reduced to three time per week. Mauricio keeps a detailed record of daily weights and well as fluid intake and output. Mauricio follows with Dr. Blanco in the urology clinic regarding prostate cancer observational management. Medical history notable for hypertension, diastolic CHF, atrial fibrillation, a history of paroxysmal vtach as well as JAMILA/obesity hypoventilation and pulmonary hypertension. He was treated for pulmonary embolus in 2006. He underwent complicated lumbar laminectomy in 2013 requiring evacuation of hematoma. He suffers with chronic back pain. He also has chronic knee pain following BL TKA. He avoids NSAIDS. He denies chest pain or palpitations, he denies significant orthopnea or shortness of breath. Mauricio denies syncope, near-syncope, lightheadedness or dizziness. Mauricio'is mother had kidney disease and he had friends who suffered while on dialysis. Mauricio has previously stated that he would refuse dialysis if indicated. Allergies Allergy/AdvReac Type Severity Reaction Status Date / Time No Known Allergies Allergy Verified 10/16/18 18:51 Home Medications Home Medications Medication Instructions Recorded Confirmed Type acetaminophen [Tylenol] 0 mg PO Q6H PRN 10/16/18 10/16/18 History allopurinol 200 mg PO QDL 10/16/18 10/16/18 History ascorbate calcium-bioflavonoid 1 tab PO QDD 10/16/18 10/16/18 History [Shante-C with Bioflavonoids] atenolol 25 mg PO QAM 10/16/18 10/16/18 History calcium carbonate [Calcium 600] 1,200 mg PO QDL 10/16/18 10/16/18 History cholecalciferol (vitamin D3) 2,000 unit PO QDD 10/16/18 10/16/18 History [Vitamin D3] docusate sodium [Colace] 100 mg PO UD 10/16/18 10/16/18 History furosemide 40 mg PO BID17 10/16/18 10/16/18 History methylprednisolone 4 mg PO UD 10/16/18 10/16/18 History metolazone 2.5 mg PO 3XWK 10/16/18 10/16/18 History dwntackk-oyu-DK-lycopen-lutein 1 tab PO QAM 10/16/18 10/16/18 History [Centrum Silver] polyethylene glycol 3350 [Miralax] 17 g PO QAM 10/16/18 10/16/18 History potassium chloride 10 meq PO QDL 10/16/18 10/16/18 History potassium chloride 20 meq PO BIDM 10/16/18 10/16/18 History rivaroxaban [Xarelto] 15 mg PO QDD 10/16/18 10/16/18 History spironolactone 25 mg PO BIDM 10/16/18 10/16/18 History tamsulosin 0.4 mg PO QDD 10/16/18 10/16/18 History Patient History Medical History DVT prophylaxis Leukocytosis (Acute) Chronic CHF (Chronic) 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 (Acute) Acute on chronic kidney failure (Acute) Obesity (BMI 30-39.9) Right foot infection (Acute) Ambulatory dysfunction (Acute) Leukocytosis (Acute) ARJUN (acute kidney injury) (Acute) Elevated troponin (Acute) Lumbar stenosis with neurogenic claudication (Acute 09/06/13) Spondylosis of lumbar joint (Acute 09/06/13) Atrial fibrillation (Chronic 09/06/13) Cor pulmonale, chronic (Acute 09/06/13) Lumbar stenosis with neurogenic claudication Spondylosis of lumbar joint Family History Mother Kidney disease Social History Preferred Language: Macedonian Communication Ability: Effective Computer Installation Engineer Required: No Beliefs That Will Affect Care: None Current Living Situation: Spouse Current Living Situation Comment: [facility]. Other Information That Helps Us Care for You: No Feels Safe at Home: Yes Safety Concerns: Feels Safe At This Time Smoking Status: Never smoker Hx Alcohol Use: Yes Alcohol type: beer Hx Substance Use: No Review of Systems Constitutional: + fatigue and + weakness; no fever and no chills Eyes: no problem reported Ear, Nose, Mouth, Throat: no problem reported Respiratory: no problem reported Cardiovascular: no chest pain, no palpitations, no edema and no problem reported Gastrointestinal: no problem reported Genitourinary: no problem reported Musculoskeletal: no problem reported Integumentary: as per Subjective / HPI; no problem reported Neurologic: as per Subjective / HPI Psychiatric: no problem reported Hematologic / Lymphatic: no problem reported Physical Exam Constitutional: + obese; no acute distress Eyes: no scleral abnormality and no corneal abnormality ENMT: Mouth: + dry oral mucous membranes; no oral mucosal abnormality Neck: normal visual inspection and trachea midline Respiratory: normal respiratory effort Auscultation: lungs clear to auscultation bilaterally; no rales Cardiovascular: Rate/Rhythm: regular rate Heart Sounds: normal S1 and normal S2; no murmur Vessels: no JVD Extremities: no edema Gastrointestinal (Abdomen): Percussion/Palpation: abdomen soft; abdomen nontender Musculoskeletal: Extremities: no cyanosis and no clubbing Skin: normal turgor; no rashes Neurologic: Motor/Sensory: no tremor and no asterixis Psychiatric: Orientation: alert Affect: euthymic affect Results & Data Vital Signs (Past 12 Hours) Vital Signs Temp Pulse Resp BP Pulse Ox 10/17/18 15:58 37.2 C 68 18 112/67 96 10/17/18 12:02 37.1 C 65 18 112/58 L 94 Laboratory Results Laboratory Results - last 24 hr 10/16/18 10/16/18 10/17/18 19:24 21:48 05:20 WBC 21.56 H RBC 4.27 L Hgb 14.5 Hct 42.8 MCV 100.2 H MCH 34.0 MCHC 33.9 RDW Std Deviation 54.8 H RDW Coeff of Anthony 15.0 H Plt Count 98 L MPV 12.2 H Immature Gran % (Auto) 1.0 Neut % (Auto) 93.2 Lymph % (Auto) 2.6 [place] % (Auto) 3.2 Eos % (Auto) 0.0 Baso % (Auto) 0.0 Immature Gran # (Auto) 0.21 H Neut # (Auto) 20.10 H Lymph # (Auto) 0.55 L [place] # (Auto) 0.69 H Eos # (Auto) 0.00 Baso # (Auto) 0.01 Platelet Estimate Decreased L RBC Morphology Unremarkable Sodium Potassium Chloride Carbon Dioxide Anion Gap BUN Creatinine Est Cr Clr Drug Dosing Est GFR ( Amer) Est GFR (Non-Af Amer) BUN/Creatinine Ratio Glucose Calcium Troponin I 0.082 H* Urine Color Dark Yellow Urine Appearance Cloudy A Urine pH 6.0 Ur Specific [place] 1.019 Urine Protein 2+ H Urine Glucose (UA) Negative Urine Ketones Negative Urine Blood 3+ H Urine Nitrite Negative Urine Bilirubin Negative Urine Urobilinogen Negative Ur Leukocyte Esterase 3+ H Urine WBC (Auto) >30 H Urine RBC (Auto) >30 H U Hyaline Cast (Auto) 0 U Epithel Cells (Auto) 0-5 Urine Bacteria (Auto) 4+ H Urine Yeast Not Reportable 10/17/18 10/17/18 05:20 15:03 WBC RBC Hgb Hct MCV MCH MCHC RDW Std Deviation RDW Coeff of Anthony Plt Count MPV Immature Gran % (Auto) Neut % (Auto) Lymph % (Auto) [place] % (Auto) Eos % (Auto) Baso % (Auto) Immature Gran # (Auto) Neut # (Auto) Lymph # (Auto) [place] # (Auto) Eos # (Auto) Baso # (Auto) Platelet Estimate RBC Morphology Sodium 131 L 130 L Potassium 5.3 H 4.8 Chloride 99 98 Carbon Dioxide 25 25 Anion Gap 7.0 7.0 BUN 81 H 81 H Creatinine 2.30 H 2.74 H D Est Cr Clr Drug Dosing 31.8 26.7 Est GFR ( Amer) 30.6 24.8 Est GFR (Non-Af Amer) 26.4 21.4 BUN/Creatinine Ratio 35.2 H 29.4 H Glucose 127 H 142 H Calcium 9.3 9.0 Troponin I 0.053 H* Urine Color Urine Appearance Urine pH Ur Specific [place] Urine Protein Urine Glucose (UA) Urine Ketones Urine Blood Urine Nitrite Urine Bilirubin Urine Urobilinogen Ur Leukocyte Esterase Urine WBC (Auto) Urine RBC (Auto) U Hyaline Cast (Auto) U Epithel Cells (Auto) Urine Bacteria (Auto) Urine Yeast (1) Chronic CHF Heart failure type: diastolic Qualified Code(s): I50.32 - Chronic diastolic (congestive) heart failure
[2018-10-17] MEDS: TAMSULOSIN HCL 0.4 MG CAP PO SCH (20:27)
[2018-10-17] MEDS: NORMOSOL-R 1,000 ML IV SCH (20:28)
[2018-10-18 01:42] LABS: Creatinine Urine Random 95.9 mg/dl; Sodium Random Urine < 5 mmol/L
[2018-10-18] MEDS: PIPERACILLIN/TAZOBACTAM 4.5 GM in DEXTROSE 5% 100 ML IV SCH ×3 (02:05→17:26)
[2018-10-18 07:08] LABS: Hematocrit (blood only) 40.9 % (42-52); Hemoglobin 14.7 g/dL (14.0-18.0); Mean Corpuscular Hgb Conc 35.9 g/dL (32-36); Mean Corpuscular Volume 96.2 fL (80-100); RDW Coefficient of Variation 14.9 % (11.5-14.5); RDW Standard Deviation 52.2 fL (36.4-46.3); Red Blood Count 4.25 M/uL (4.7-6.1); White Blood Count 17.76 K/uL (4.8-10.8)
[2018-10-18 07:40] LABS: BUN Creatinine Ratio 33.6 (10-20); Calcium 8.8 mg/dl (8.5-10.1); Creatinine Clr Calc Pharmacy 28.5 ml/min; Est GFR (Non-African American) 22.5; Potassium 4.5 mmol/L (3.5-5.1)
[2018-10-18 07:41] LABS: Mean Platelet Volume 11.5 fL (7.4-10.4); Platelet Count 88 K/uL (130-400)
[2018-10-18 07:47] LABS: Basophils # (auto) 0.01 K/uL (0-0.2); Basophils % (auto) 0.1 %; Echinocytes 1+; Immature Granulocytes # (auto) 0.12 K/uL (0.00-0.02); Immature Granulocytes % (auto) 0.7 %; Lymphocytes # (auto) 0.29 K/uL (1.2-3.4); Lymphocytes % (auto) 1.6 %; Monocytes # (auto) 1.23 K/uL (0.11-0.59); Monocytes % (auto) 6.9 %; Neutrophils # (auto) 16.11 K/uL (1.4-6.5); Neutrophils % (auto) 90.7 %; Platelet Estimate Decreased (Normal); Tear Drop Cells 1+; Toxic Granulation 1+; Toxic Vacuolation 2+
--- NOTE | 2018-10-18 08:06 | Hospitalist Progress Note ---
Date of Service October 18, 2018 Assessment & Plan (1) Generalized weakness: UTI Klebsiella seen in the urine bacteremia was noted in the blood Also presented with severe right foot pain with gout flare which is improved PT/OT consults placed (2) Gram-negative bacteremia: GNR in 2/2 bottles, urine is the source as urine culture growing Klebsiella previously he has had Klebsiella oxytoca growing in his urine culture from 07/2018- He does not report having any urinary symptoms currenlty but over the last several days he had blood in the urine and the right-sided flank pain. He does have a large kidney stone in the right kidney-unsure if this is playing a role in his UTI? Consider urological evaluation as ? could stone be nidus of infection -Continue Zosyn (3) UTI (urinary tract infection): As above, presented with blood in the urine and dark urine with low urine output and generalized fatigue x2 days. -Continue Zosyn Renal ultrasound shows stone but no evidence of pyelonephritis Does have a history of prostate cancer that is being observed at this time (4) Acute on chronic kidney failure: With significantly elevated BUN and creatinine nephrology feels this to be prerenal likely due to infection and poor p.o. intake with dehydration in the setting of continued diuretic use Renal ultrasound without evidence of obstruction He does also have a urinary tract infection with right flank pain which could be contributing to his renal failure -Continue to hold Lasix, metolazone, and spironolactone. Nephrology has stopped intravenous fluids on 10/18 -Avoid nephrotoxins -Renally dose medications (5) 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: Presented with a severely painful right forefoot with clinical signs and symptoms of acute gout attack Was treated upon admission with several doses of colchicine and IV Solu-Medrol -Continue to treat underlying renal failure as above -DC IV Solu-Medrol and convert to po prednisone -Continue allopurinol 100 mg daily (6) Atrial fibrillation: Chronic. With bradycardia after admission likely secondary to atenolol use in the setting of ARJUN as atenolol is renally excreted -hold atenolol -Continue Xarelto -follow on tele (7) Chronic CHF: Chronic diastolic CHF-currently stable. Diuretics are on hold to include Lasix, spironolactone, and metolazone. (8) Leukocytosis: WBC count was 20 on admission and was likely due to UTI and bacteremia as above He was also placed on IV Solu-Medrol according to family left foot looks dramatically improved, by my evaluation appears to have chronic skin changes but not infected (9) Elevated troponin: Mildly elevated troponin 0.075/0 0.087/0.053 which is likely secondary to myocardial demand ischemia in the setting of acute illness He has no ischemic changes on his ECG -No need for further work-up (10) Hyponatremia: improved with renal oversight (11) Hyperkalemia: resolved after kayexalate (12) Lumbar stenosis with neurogenic claudication: Long-standing issue with history of back surgery, level of discomfort is at baseline (13) Ambulatory dysfunction: Secondary to generalized weakness from acute illness in the setting of chronic lower back pain issues PT/OT consultations ordered (14) Prostate cancer: Diagnosed in 2017 and follows with urology, Dr. Blanco-has chosen to undergo observation therapy -Continues on tamsulosin (15) Pulmonary hypertension: RVSP greater than 60 on echocardiogram from 2018 -On multiple diuretics, which are now on hold follow for clinical symptoms, currently is stable but pt is not exerting significantly (16) Thrombocytopenia: Platelets dropped down to 98 from 122-could be from acute illness, but has low normal platelets chronically Also has macrocytosis Question of has B12 deficiency? 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 Was recommended to have follow-up imaging in 1 year-I do not see evidence of this -Needs follow-up imaging routinely as an outpatient (18) DVT prophylaxis: Continue Xarelto therapy, renally dosed Disposition-remain hospitalized PT/OT consults placed He lives at [facility] independently, but could go to the residential portion if needed after discharge Subjective Patient feels somewhat improved he is slightly hard of hearing is been his biggest concern remains his constipation his is at the bedside and was updated on his health she requests that he have some nutritional supplementation. His sodium and potassium have been stable his creatinine is slightly improved Review of Systems Review of Systems: ROS: Patient appears his stated age No double vision blurry vision No problems with speech or swallowing No palpitations, chest pain or pressure Veins with some shortness of breath no coughing No abdominal pain nausea vomiting complains of no bowel movements No burning urine urine frequency or changes in color No focal joint pain or muscle pain No skin rashes or oral lesions No unusual bruising or bleeding No focused back pain or numbness or loss of strength No changes in memory or confusion Physical Exam Physical Exam: The patient in no significant distress Vital signs as documented. Head exam is unremarkable. normocephalic, atraumatic Neck is without jugular venous distension, thyromegaly, or lymphademopathy Lungs are clear to auscultation and percussion. Cardiac exam reveals Rhythm regular but bradycardic Abdominal exam reveals normal bowel sounds, no masses, no organomegaly Extremities are mildly edematous and both pedal pulses are present Neurologic exam is A&Ox3, no focal deficits, strength is globally reduced Psychologically seems neither anxious or depressed Skin is warm Dry without bruises or lesions Results & Data Vital Signs (Past 12 Hours) Vital Signs Temp Pulse Resp BP Pulse Ox 10/18/18 07:38 36.7 C 63 18 123/67 93 10/18/18 04:36 36.5 C 71 24 122/84 96 10/17/18 23:54 36.4 C L 74 22 119/79 95 (1) Chronic CHF Heart failure type: diastolic Qualified Code(s): I50.32 - Chronic diastolic (congestive) heart failure
[2018-10-18] MEDS: NORMOSOL-R 1,000 ML IV SCH (09:03)
[2018-10-18] MEDS: ALLOPURINOL 100 MG TAB PO SCH (09:05)
[2018-10-18] MEDS: predniSONE 20 MG TAB PO SCH (09:05)
[2018-10-18] MEDS: POLYETHYLENE (MIRALAX) 17 GM PACK PO SCH (09:06)
--- NOTE | 2018-10-18 09:53 | Nephrology Progress Note ---
Date of Service October 18, 2018 Assessment & Plan (1) Acute on chronic kidney failure: -- Clinically consistent with pre-renal physiology and ATN -- Creatinine slightly improved this AM -- Remains in a positive fluid balance -- JVP increased since yesterday -- Urine sodium disconcertingly low -- TTE requested -- Hold IVF -- Diuretics held -- Renal US without obstruction: 3 cm cysts and 1 cm stone in right kidney -- Medications are appropriately dosed for kidney function -- No current indication for dialysis (2) Gram-negative bacteremia: -- + GNR in blood and urine -- Remains on Zosyn -- Suspicion remains for joint or soft tissue infection in foot which is being monitored (3) UTI (urinary tract infection): -- As above (4) 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: -- Improved with treatment (5) Atrial fibrillation: -- Monitor use of Xarelto in renal failure -- Atenolol held due to bradycardia (6) Chronic CHF: -- Diuretics held (7) Leukocytosis: (8) Hyponatremia: -- Encourage solute intake -- Monitor (9) Hyperkalemia: -- Low potassium diet -- Treated with SPS 10/17/18 (10) Lumbar stenosis with neurogenic claudication: (11) Pulmonary hypertension: -- RVSP greater than 60 on echocardiogram from 2018 -- Repeat TTE today Subjective No acute events overnight. Mauricio feels reasonably well this morning. He reports significant constipation. He has frequent urge to void. Bladder scan did not demonstrate significant PVR. He denies dyspnea. He denies chest pain. No fevers or chills. Appetite good. Review of Systems Review of Systems: All systems reviewed & are unremarkable except as noted in HPI & below Physical Exam Constitutional: + obese; no acute distress Eyes: no scleral abnormality and no corneal abnormality ENMT: Mouth: + dry oral mucous membranes; no oral mucosal abnormality Neck: normal visual inspection and trachea midline Respiratory: normal respiratory effort Auscultation: lungs clear to auscultation bilaterally; no rales Cardiovascular: Rate/Rhythm: regular rate Heart Sounds: normal S1 and normal S2; no murmur Vessels: no JVD Extremities: no edema Gastrointestinal (Abdomen): Inspection/Auscultation: + abdomen distended Percussion/Palpation: abdomen nontender Musculoskeletal: Extremities: no cyanosis and no clubbing Skin: normal turgor; no rashes Neurologic: Motor/Sensory: no tremor and no asterixis Psychiatric: Orientation: alert Affect: euthymic affect Results & Data Vital Signs (Past 12 Hours) Vital Signs Temp Pulse Resp BP Pulse Ox 10/18/18 07:38 36.7 C 63 18 123/67 93 10/18/18 04:36 36.5 C 71 24 122/84 96 10/17/18 23:54 36.4 C L 74 22 119/79 95 Laboratory Results Laboratory Results - last 24 hr 10/17/18 10/18/18 10/18/18 15:03 00:40 06:43 WBC RBC Hgb Hct MCV MCH MCHC RDW Std Deviation RDW Coeff of Anthony Plt Count MPV Immature Gran % (Auto) Neut % (Auto) Lymph % (Auto) [place] % (Auto) Eos % (Auto) Baso % (Auto) Immature Gran # (Auto) Neut # (Auto) Lymph # (Auto) [place] # (Auto) Eos # (Auto) Baso # (Auto) Toxic Granulation Toxic Vacuolation Platelet Estimate Tear Drop Cells Echinocytes Sodium 130 L Potassium 4.8 Chloride 98 Carbon Dioxide 25 Anion Gap 7.0 BUN 81 H Creatinine 2.74 H D Est Cr Clr Drug Dosing 26.7 Est GFR ( Amer) 24.8 Est GFR (Non-Af Amer) 21.4 BUN/Creatinine Ratio 29.4 H Glucose 142 H Calcium 9.0 Vitamin B12 456 Ur Random Creatinine 95.9 Ur Random Sodium < 5 10/18/18 10/18/18 06:43 06:43 WBC 17.76 H RBC 4.25 L Hgb 14.7 Hct 40.9 L MCV 96.2 MCH 34.6 H MCHC 35.9 RDW Std Deviation 52.2 H RDW Coeff of Anthony 14.9 H Plt Count 88 L MPV 11.5 H Immature Gran % (Auto) 0.7 Neut % (Auto) 90.7 Lymph % (Auto) 1.6 [place] % (Auto) 6.9 Eos % (Auto) 0.0 Baso % (Auto) 0.1 Immature Gran # (Auto) 0.12 H Neut # (Auto) 16.11 H Lymph # (Auto) 0.29 L [place] # (Auto) 1.23 H Eos # (Auto) 0.00 Baso # (Auto) 0.01 Toxic Granulation 1+ Toxic Vacuolation 2+ Platelet Estimate Decreased L Tear Drop Cells 1+ Echinocytes 1+ Sodium 131 L Potassium 4.5 Chloride 98 Carbon Dioxide 21 Anion Gap 12.0 H BUN 88 H Creatinine 2.63 H Est Cr Clr Drug Dosing 28.5 Est GFR ( Amer) 26.0 Est GFR (Non-Af Amer) 22.5 BUN/Creatinine Ratio 33.6 H Glucose 118 H Calcium 8.8 Vitamin B12 Ur Random Creatinine Ur Random Sodium (1) Chronic CHF Heart failure type: diastolic Qualified Code(s): I50.32 - Chronic diastolic (congestive) heart failure
[2018-10-18] MEDS ORDERED: MINERAL OIL ENEMA 133 ML BTL PR ONE (12:45)
[2018-10-18] MEDS ORDERED: Nursing to Pharmacy Communication ONE (15:58)
[2018-10-18] MEDS: RIVAROXABAN 15 MG TAB PO SCH (16:07)
[2018-10-18] MEDS ORDERED: FUROSEMIDE 40 MG in SYRINGE 0 ML IV ONE (17:15)
[2018-10-18] MEDS: ALBUT/IPRATROP 3MG/0.5MG NEB 3 ML VIAL NEB PRN (18:16)
[2018-10-18] MEDS: TAMSULOSIN HCL 0.4 MG CAP PO SCH (20:54)
[2018-10-19] MEDS: PIPERACILLIN/TAZOBACTAM 4.5 GM in DEXTROSE 5% 100 ML IV SCH ×2 (02:24→09:57)
[2018-10-19 06:37] LABS: Hematocrit (blood only) 42.6 % (42-52); Hemoglobin 15.7 g/dL (14.0-18.0); Mean Corpuscular Hgb Conc 36.9 g/dL (32-36); Mean Corpuscular Volume 95.5 fL (80-100); Mean Platelet Volume 11.8 fL (7.4-10.4); Platelet Count 96 K/uL (130-400); Red Blood Count 4.46 M/uL (4.7-6.1); White Blood Count 13.63 K/uL (4.8-10.8)
[2018-10-19 07:09] LABS: BUN Creatinine Ratio 33.4 (10-20); Calcium 9.6 mg/dl (8.5-10.1); Creatinine Clr Calc Pharmacy 27.3 ml/min; Est GFR (African American) 24.9; Est GFR (Non-African American) 21.5; Potassium 3.7 mmol/L (3.5-5.1)
[2018-10-19 07:17] LABS: Basophils # (auto) 0.02 K/uL (0-0.2); Basophils % (auto) 0.1 %; Immature Granulocytes # (auto) 0.08 K/uL (0.00-0.02); Immature Granulocytes % (auto) 0.6 %; Lymphocytes # (auto) 0.46 K/uL (1.2-3.4); Lymphocytes % (auto) 3.4 %; Monocytes # (auto) 0.65 K/uL (0.11-0.59); Monocytes % (auto) 4.8 %; Neutrophils # (auto) 12.42 K/uL (1.4-6.5); Neutrophils % (auto) 91.1 %
[2018-10-19] MEDS ORDERED: ONDANSETRON INJ 2 MG/ML 2 ML VIAL IV ONE (07:25)
[2018-10-19] MEDS ORDERED: PROMETHAZINE HCL 12.5 MG in SODIUM CHLORIDE 0.9% 50 ML IV PRN (07:51)
--- NOTE | 2018-10-19 07:52 | Hospitalist Progress Note ---
Date of Service October 19, 2018 Assessment & Plan (1) Generalized weakness: UTI Klebsiella seen in the urine with the same strain found in the blood Also presented with severe right foot pain with gout flare which is improved PT/OT consults placed (2) Gram-negative bacteremia: Blood as well as urine culture growing Klebsiella oxytoca previously he has had Klebsiella oxytoca growing in his urine culture from 07/2018- Consider urological evaluation as ? could stone be nidus of infection Patient sevenths activities patient be changed to Rocephin 2 g IV daily although Zosyn and cover things (3) UTI (urinary tract infection): Renal ultrasound shows stone but no evidence of pyelonephritis Does have a history of prostate cancer that is being observed at this time (4) Acute on chronic kidney failure: With significantly elevated BUN and creatinine nephrology feels this to be prerenal likely due to infection and poor p.o. intake with dehydration in the setting of continued diuretic use Renal ultrasound without evidence of obstruction Patient was given a dose of Lasix 40 on 10/18 and now ED on 10/11 due to respiratory distress. We will continuing to hold metolazone, and spironolactone due to acute kidney injury Nephrology has stopped intravenous fluids on 10/18 -Avoid nephrotoxins -Renally dose medications (5) 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: Presented with a severely painful right forefoot with clinical signs and symptoms of acute gout attack Was treated upon admission with several doses of colchicine and IV Solu-Medrol -Continue to treat underlying renal failure -DC IV Solu-Medrol and convert to po prednisone watching for signs of Wilkinson's or steroid insufficiency -Continue allopurinol 100 mg daily (6) Atrial fibrillation: Chronic. Rate controlled almost too much with bradycardia after admission likely secondary to atenolol use in the setting of ARJUN as atenolol is renally excreted -Continue hold atenolol -Currently will hold Xarelto given brownish gastric drainage (7) Chronic CHF: Chronic diastolic CHF-currently stable. Clinically patient appeared volume overloaded with JVD and some respiratory distress associate with crackles on auscultation the patient was given Lasix as mentioned above 40 mg in the evening of 09/2779 mg in the morning of 10/19 (8) Leukocytosis: WBC count was 20 on admission and was likely due to UTI and bacteremia as above He was also placed on IV Solu-Medrol according to family left foot looks dramatically improved, by my evaluation appears to have chronic skin changes but not infected pitting the primary source of infection to be urinary (9) Elevated troponin: Mildly elevated troponin 0.075/0 0.087/0.053 which is likely secondary to myocardial demand ischemia in the setting of acute illness He has no ischemic changes on his ECG No further chest pain or other symptoms (10) Hyponatremia: improved with renal oversight (11) Hyperkalemia: resolved after kayexalate (12) Lumbar stenosis with neurogenic claudication: Long-standing issue with history of back surgery, level of discomfort is at baseline (13) Ambulatory dysfunction: Secondary to generalized weakness from acute illness in the setting of chronic lower back pain issues PT/OT consultations ordered (14) Prostate cancer: Diagnosed in 2017 and follows with urology, Dr. 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 Was recommended to have follow-up imaging in 1 year-I do not see evidence of this -Needs follow-up imaging routinely as an outpatient (18) DVT prophylaxis: Currently we will hold Xarelto begin SCDs Disposition-remain hospitalized PT/OT consults placed He lives at [facility] independently, but could go to the [facility] portion if needed after discharge Subjective Patient has dramatically worsened this morning. He did have some diuresis with Lasix however he has mild to moderate respiratory distress. He has moderate abdominal distention and x-ray of his abdomen look to be a significant ileus. An NG tube was placed and he promptly produced approximately 1900 mL of a brown liquid he felt better when this occurred. Repeat hemoglobin later in the afternoon confirmed he was not having any acute blood loss anemia. His Xarelto was held in a precautionary state. Patient is pending CT of the abdomen pelvis noncontrast as he is previously had colonic surgery and he could have issues at the anastomotic site Review of Systems Review of Systems: ROS: Mild to moderate distress No double vision blurry vision No problems with speech or swallowing No palpitations, chest pain or pressure Has some upper upper airway breath sounds and increased work of breathing No abdominal pain significant distention nausea and vomiting No burning urine urine frequency or changes in color No focal joint pain or muscle pain No skin rashes or oral lesions No unusual bruising or bleeding No focused back pain or numbness or loss of strength No changes in memory or confusion Physical Exam Physical Exam: The patient appeared in mild to moderate distress he is morbidly obese. Vital signs as documented. Head exam is unremarkable. normocephalic, atraumatic Neck is with mild jugular venous distension, thyromegaly, or lymphademopathy Lungs are few rales at the base Cardiac exam reveals rate controlled but irregularly irregular. First and second heart sounds normal. Abdominal exam reveals hypoactive bowel sounds, distended tympanitic Extremities are mildly edematous and both pedal pulses are present Neurologic exam is A&Ox3, no focal deficits, strength is equal bilateral Psychologically seems anxious Skin is warm Dry without bruises or lesions Results & Data Vital Signs (Past 12 Hours) Vital Signs Temp Pulse Pulse Resp BP Pulse Ox 10/19/18 07:07 36.9 C 88 19 146/80 H 94 10/19/18 03:32 36.8 C 67 20 142/86 H 94 10/18/18 23:43 81 18 136/95 94 10/18/18 22:31 67 (1) Chronic CHF Heart failure type: diastolic Qualified Code(s): I50.32 - Chronic diastolic (congestive) heart failure
[2018-10-19] MEDS: ALLOPURINOL 100 MG TAB PO SCH (08:35)
[2018-10-19] MEDS: predniSONE 20 MG TAB PO SCH (08:35)
[2018-10-19] MEDS: POLYETHYLENE (MIRALAX) 17 GM PACK PO SCH (08:36)
--- NOTE | 2018-10-19 09:01 | XRay Report ---
ABDOMEN 2 VIEWS HISTORY: Generalized abdominal pain. COMPARISON: Abdominal MRI 03/25/2017. FINDINGS: Multiple dilated gas-filled loops of large and small bowel are seen throughout the abdomen. There is also gas within the rectum. Therefore, this favors an ileus. The small bowel distended up t o 5 cm. Prior cholecystectomy. No pneumoperitoneum. No pneumatosis. There is also moderate gaseous di stention of the stomach. IMPRESSION: Multiple distended gas-filled loops of large and small bowel seen throughout the abdomen. Findings fa vor an ileus. Electronically signed by: Richard Torres M.D. 10/19/2018 8:59 AM
[2018-10-19 09:02] LABS: Albumin Level 2.6 gm/dl (3.4-5.0); Bilirubin Direct 0.6 mg/dl (0-0.2); Bilirubin,Total 1.4 mg/dl (0.2-1); Total Protein 7.5 gm/dl (6.4-8.2)
[2018-10-19] MEDS ORDERED: FUROSEMIDE 40 MG in SYRINGE 0 ML IV ONE (09:15)
[2018-10-19] MEDS ORDERED: FUROSEMIDE 80 MG in SYRINGE 0 ML IV ONE (09:16)
--- NOTE | 2018-10-19 09:24 | Nephrology Progress Note ---
Date of Service October 19, 2018 Assessment & Plan (1) Acute on chronic kidney failure: -- Clinically consistent with pre-renal physiology and ATN -- Acute on chronic CHF contributing -- Agree with furosemide 80 mg daily -- POC discussed with Dr. Fajardo this morning -- TTE pending -- Renal US without obstruction: 3 cm cysts and 1 cm stone in right kidney -- Medications are appropriately dosed for kidney function -- No current indication for dialysis (2) Gram-negative bacteremia: -- + GNR in blood and urine -- Remains on Zosyn -- ID consult (3) UTI (urinary tract infection): -- ID consultation (4) 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: -- Improved with treatment (5) Atrial fibrillation: -- Monitor use of Xarelto in renal failure (6) Chronic CHF: -- Diuretics held (7) Leukocytosis: (8) Hyponatremia: (9) Hyperkalemia: (10) Lumbar stenosis with neurogenic claudication: (11) Pulmonary hypertension: -- RVSP greater than 60 on echocardiogram from 2018 -- Diuretics to encourage negative fluid balance Subjective Mauricio unfortunately does not look well this morning. He developed difficulty breathing yesterday. Findings suggestive of CHF. He had a fair response to IV furosemide 40 mg. He is very weak today. Abdomen is increasingly distended. Mauricio had notable nausea. He notes a small bowel movement following an enema yesterday. He vomited after breakfast today. Review of Systems Review of Systems: All systems reviewed & are unremarkable except as noted in HPI & below Physical Exam Constitutional: + ill appearing and + obese Eyes: no scleral abnormality and no corneal abnormality ENMT: Mouth: no oral mucosal abnormality and oral mucous membranes not dry Neck: normal visual inspection and trachea midline Respiratory: + labored breathing Auscultation: lungs clear to auscultation bilaterally and + rales Cardiovascular: Rate/Rhythm: regular rate Heart Sounds: normal S1 and normal S2; no murmur Vessels: + JVD Extremities: no edema Gastrointestinal (Abdomen): Inspection/Auscultation: + abdomen distended Percussion/Palpation: + abdomen tender Musculoskeletal: Extremities: no cyanosis and no clubbing Skin: normal turgor; no rashes Neurologic: Motor/Sensory: no tremor and no asterixis Psychiatric: Orientation: alert Affect: euthymic affect Results & Data Vital Signs (Past 12 Hours) Vital Signs Temp Pulse Pulse Resp BP Pulse Ox 10/19/18 07:15 77 10/19/18 07:07 36.9 C 88 19 146/80 H 94 10/19/18 03:32 36.8 C 67 20 142/86 H 94 10/18/18 23:43 81 18 136/95 94 10/18/18 22:31 67 Laboratory Results Laboratory Results - last 24 hr 10/19/18 10/19/18 10/19/18 06:03 06:03 06:03 WBC 13.63 H RBC 4.46 L Hgb 15.7 Hct 42.6 MCV 95.5 MCH 35.2 H MCHC 36.9 H RDW Std Deviation 52.0 H RDW Coeff of Anthony 15.0 H Plt Count 96 L MPV 11.8 H Immature Gran % (Auto) 0.6 Neut % (Auto) 91.1 Lymph % (Auto) 3.4 Cobb % (Auto) 4.8 Eos % (Auto) 0.0 Baso % (Auto) 0.1 Immature Gran # (Auto) 0.08 H Neut # (Auto) 12.42 H Lymph # (Auto) 0.46 L Cobb # (Auto) 0.65 H Eos # (Auto) 0.00 Baso # (Auto) 0.02 Sodium 134 L Potassium 3.7 D Chloride 96 L Carbon Dioxide 25 Anion Gap 13.0 H BUN 91 H Creatinine 2.73 H Est Cr Clr Drug Dosing 27.3 Est GFR ( Amer) 24.9 Est GFR (Non-Af Amer) 21.5 BUN/Creatinine Ratio 33.4 H Glucose 144 H Calcium 9.6 Total Bilirubin 1.4 H Direct Bilirubin 0.6 H AST 24 ALT 36 Alkaline Phosphatase 61 Total Protein 7.5 Albumin 2.6 L Lipase 46 L (1) Chronic CHF Heart failure type: diastolic Qualified Code(s): I50.32 - Chronic diastolic (congestive) heart failure
[2018-10-19] MEDS: HYDROCORTISONE SOD 50 MG in SYRINGE 0 ML IV SCH ×2 (14:02→21:03)
--- NOTE | 2018-10-19 15:04 | CT Scan Report ---
CT SCAN OF THE ABDOMEN AND PELVIS WITHOUT CONTRAST CLINICAL HISTORY: Abdominal pain and distention. Possible obstruction. COMPARISON STUDY: September 2015 TECHNIQUE: CT scan of the abdomen and pelvis was performed from the lung bases to the proximal femurs . Images are reviewed in the axial, sagittal, and coronal planes. IV contrast was not administered fo r this examination. A dose lowering technique was utilized adhering to the principles of ALARA. CT DOSE: 1332.86 mGy.cm FINDINGS: Lower chest: The heart is enlarged. There are coronary artery calcifications. There are enlarged lowe r lobe pulmonary artery branches. There is lower lobe bronchial wall thickening with areas of mucous plugging. There is bilateral gynecomastia. There is a trace right pleural effusion Liver: The unenhanced liver is normal in size, contour, and attenuation. There is no intrahepatic ej iary ductal dilatation. Gallbladder: Surgically absent Spleen: Normal in size and attenuation. Pancreas: Unremarkable. Adrenal glands: There is bilateral low density adrenal gland thickening, likely secondary to adenomat ous hyperplasia Kidneys: There is mild right-sided hydronephrosis. There is a 21 mm calculus within the right renal p aayush. There is a punctate lower pole right renal calculus. There is a 6 mm obstructing distal right ureteral calculus There are bilateral renal cysts. There is no ureteral dilatation. Bowel: There is indwelling nasogastric tube. There are postsurgical changes of a right hemicolectomy with ileocolonic anastomosis. There are multiple dilated small bowel loops with multiple air-fluid le vels. The distal ileum is of more normal caliber. Findings are consistent with a small bowel obstruct ion. Peritoneum: There is no intraperitoneal free air or abdominal ascites. There is trace pelvic ascites. No free air is visualized. There are multiple ventral hernias. Most of these are fat-containing. 2 c ontain small portions of bowel. There is no current evidence of obstruction. Vasculature: There is no evidence of abdominal aortic aneurysm. There is an indwelling IVC filter. Adenopathy: None. Pelvic viscera: There is mild prostamegaly. There is an indwelling Lr catheter. Skeletal structures: Postsurgical changes involve the spine. IMPRESSION: 1. Small bowel obstructive pattern 2. No evidence of free intraperitoneal air 3. Minimal ascites 4. Right-sided hydronephrosis. 6 mm obstructing distal right ureteral calculus 5. 21 mm calculus within the right renal pelvis. 6. Lower lobe bronchial wall thickening with mucous plugging Electronically signed by: Manuel Rogers M.D. 10/19/2018 3:03 PM
--- NOTE | 2018-10-19 15:35 | Anesthesiology Consultation ---
Date of Service October 19, 2018 Assessment & Plan (1) Encounter for pre-operative examination: Chart Review Chart Review: Acceptable Risk for Surgery and Patient NOT seen in Pre Admission Testing Consults Requested none History Surgery Operation Date: 10/19/18 14:20 Proposed Procedures p Cystoscopy, Right Retrograde, Stent Placement - Moose Peraza II, DO Height/Weight Height: 5 ft 8 in Weight: 110.4 kg Allergies Allergy/AdvReac Type Severity Reaction Status Date / Time No Known Allergies Allergy Verified 10/19/18 16:07 Medications Home Medications Medication Instructions Recorded Confirmed Last Taken acetaminophen [Tylenol] 0 mg PO Q6H PRN 10/16/18 10/16/18 10/15/18 2 capsules allopurinol 200 mg PO QDL 10/16/18 10/16/18 10/16/18 ascorbate calcium-bioflavonoid 1 tab PO QDD 10/16/18 10/16/18 10/15/18 [Shante-C with Bioflavonoids] atenolol 25 mg PO QAM 10/16/18 10/16/18 10/16/18 calcium carbonate [Calcium 600] 1,200 mg PO QDL 10/16/18 10/16/18 10/16/18 cholecalciferol (vitamin D3) 2,000 unit PO QDD 10/16/18 10/16/18 10/15/18 [Vitamin D3] docusate sodium [Colace] 100 mg PO UD 10/16/18 10/16/18 10/16/18 12:00 furosemide 40 mg PO BID17 10/16/18 10/16/18 10/16/18 methylprednisolone 4 mg PO UD 10/16/18 10/16/18 10/16/18 12:00 metolazone 2.5 mg PO 3XWK 10/16/18 10/16/18 10/15/18 [id number]-lycopen-lutein 1 tab PO QAM 10/16/18 10/16/18 10/16/18 [Centrum Silver] polyethylene glycol 3350 [Miralax] 17 g PO QAM 10/16/18 10/16/18 10/16/18 potassium chloride 10 meq PO QDL 10/16/18 10/16/18 10/16/18 potassium chloride 20 meq PO BIDM 10/16/18 10/16/18 10/16/18 rivaroxaban [Xarelto] 15 mg PO QDD 10/16/18 10/16/18 10/15/18 spironolactone 25 mg PO BIDM 10/16/18 10/16/18 10/16/18 tamsulosin 0.4 mg PO QDD 10/16/18 10/16/18 10/15/18 Active Medications Generic Name Dose Route Start Last Admin Trade Name Freq PRN Reason Stop Dose Admin Al Hydrox/Mg Hydrox/Simethicone 15 ml 10/16/18 20:49 10/18/18 20:54 Maalox PO 11/15/18 20:48 15 ml Q4H PRN Administration Dyspepsia Albuterol 3 ml 10/18/18 16:18 10/18/18 18:16 Duoneb NEB 11/17/18 19:59 3 ml Q4R PRN Administration Shortness Of Breath Allopurinol 100 mg 10/17/18 09:00 10/19/18 08:35 Zyloprim PO 11/16/18 08:59 100 mg DAILY CARLO Administration Atenolol 25 mg 10/17/18 09:00 10/17/18 08:52 Tenormin PO 11/16/18 08:59 25 mg QAM CARLO Administration Promethazine HCl 12.5 mg/ 50.5 mls @ 202 mls/hr 10/19/18 07:51 10/19/18 08:50 Sodium Chloride IV 11/18/18 07:50 Infused Q6H PRN Infusion Nausea And Vomiting Hydrocortisone Sodium 1 mls @ 4 mls/min 10/19/18 14:00 10/19/18 14:02 Succinate 50 mg/ Syringe IV 11/18/18 13:59 4 mls/min Q8 CARLO Administration Morphine Sulfate 2 mg 10/16/18 20:49 10/17/18 16:55 Morphine Sulfate IV 10/30/18 20:48 2 mg Q3H PRN Administration Pain Ondansetron HCl 4 mg 10/16/18 20:49 10/19/18 03:28 Zofran IV 11/15/18 20:48 4 mg Q6H PRN Administration Nausea Polyethylene Glycol 17 gm 10/17/18 09:15 10/19/18 08:36 Miralax Powder Packet PO 06/25/19 09:14 Not Given QAM CARLO Prednisone 40 mg 10/18/18 09:00 10/19/18 08:35 Prednisone PO 11/17/18 08:59 40 mg QAM CARLO Administration Rivaroxaban 15 mg 10/17/18 16:30 10/18/18 16:07 Xarelto PO 11/16/18 16:29 15 mg QDD CARLO Administration Tamsulosin HCl 0.4 mg 10/16/18 21:00 10/18/18 20:54 Flomax PO 11/15/18 20:59 0.4 mg HS CARLO Administration Past Medical History Medical History DVT prophylaxis Leukocytosis (Acute) Chronic CHF (Chronic) 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 (Acute) Acute on chronic kidney failure (Acute) Obesity (BMI 30-39.9) Right foot infection (Acute) Ambulatory dysfunction (Acute) Leukocytosis (Acute) ARJUN (acute kidney injury) (Acute) Elevated troponin (Acute) Lumbar stenosis with neurogenic claudication (Acute 09/06/13) Spondylosis of lumbar joint (Acute 09/06/13) Atrial fibrillation (Chronic 09/06/13) Cor pulmonale, chronic (Acute 09/06/13) Lumbar stenosis with neurogenic claudication Spondylosis of lumbar joint Exercise / Class Metabolic Activity III < 4 Walking/Shop/Light housework Past Family History Family History Mother Kidney disease Past Surgical History colon surgery, bilateral knee replacements, margaret Past Anesthesia History No Hx of Anesthesia Complications and No Family Hx of Anesthesia Complications History of PONV No Hx of PONV and No Hx of Motion Sickness Social History Smoking Status: Never smoker Hx Alcohol Use: Yes Alcohol type: beer alcohol intake frequency: holidays/special occasions only Hx Substance Use: No Physical Exam Vital Signs Last Vital Signs Temp 36.5 C 10/19/18 15:55 Pulse 71 10/19/18 15:55 Resp 24 10/19/18 15:55 BP 135/89 10/19/18 15:55 Pulse Ox 93 10/19/18 15:55 Testing Laboratory Results 10/19/18 13:01 10/19/18 06:03 10/16/18 19:24 Urine Color Dark Yellow Urine Appearance Cloudy A Urine pH 6.0 Ur Specific [place] 1.019 Urine Protein 2+ H Urine Glucose (UA) Negative Urine Ketones Negative Urine Nitrite Negative Ur Leukocyte Esterase 3+ H Urine WBC (Auto) >30 H Urine RBC (Auto) >30 H U Hyaline Cast (Auto) 0 U Epithel Cells (Auto) 0-5 Urine Bacteria (Auto) 4+ H 10/17/18 09:23 Aerobic Blood Culture - Preliminary Blood Klebsiella oxytoca Anaerobic Blood Culture - Preliminary No growth in Anaerobic bottle after 48 hours. 10/17/18 09:24 Aerobic Blood Culture - Preliminary Blood Klebsiella oxytoca Anaerobic Blood Culture - Final 10/16/18 18:09 Aerobic Blood Culture - Preliminary Blood Klebsiella oxytoca Anaerobic Blood Culture - Preliminary Klebsiella oxytoca 10/16/18 17:59 Aerobic Blood Culture - Preliminary Blood Klebsiella oxytoca Anaerobic Blood Culture - Preliminary Klebsiella oxytoca 10/16/18 19:24 Urine Culture - Final Urine,Clean Catch Klebsiella oxytoca Electrocardiogram Date: 10/19/18 Findings: + AFIB @ (88) Atrial fibrillation with premature ventricular or aberrantly conducted complexes Left anterior fascicular block Anterolateral infarct (cited on or before 17-SEP-2013) Abnormal ECG When compared with ECG of 16-OCT-2018 16:43, QT has lengthened Confirmed by Mayco Kennedy ([id number]) on 10/19/2018 10:15:53 AM Chest X-Ray Date: 10/16/18 XR chest 1V portable CLINICAL HISTORY: weakness dyspnea COMPARISON STUDY: 12/22/2016 FINDINGS: Stable cardiomegaly. Diaphragms are smooth. Chronic blunting left lateral costophrenic angle. Lungs appear clear. IMPRESSION: Chronic change. No acute process. Echocardiogram Date: 10/19/18 LV systolic function is normal. No RWMA. EF 55-60%. Mild to moderate TR. RV systolic pressure is elevated at 50-60mmHg. Compared with study dated 06/24/2017, no significant change. Other Testing 10/19/2018: IMPRESSION: 1. Small bowel obstructive pattern 2. No evidence of free intraperitoneal air 3. Minimal ascites 4. Right-sided hydronephrosis. 6 mm obstructing distal right ureteral calculus 5. 21 mm calculus within the right renal pelvis. 6. Lower lobe bronchial wall thickening with mucous plugging
--- NOTE | 2018-10-19 15:45 | History & Physical Bridge Note ---
Date of Service October 19, 2018 History & Physical Bridge Note I have examined the patient, reviewed the History & Physical and in the interval since the performance of the History & Physical I have noted the following changes of clinical significance: no changes noted Obstructing Distal 6 mm right stone. ARJUN, Sepsis, xarleto. Risks and benefits discussed at [facility]. Urgent cystoscopy with right retrograde pyelogram and stent placement.
[2018-10-19] MEDS ORDERED: ePHEDrine sulfate 50 MG/ML AMP IV PRN (15:53)
[2018-10-19] MEDS ORDERED: ONDANSETRON INJ 2 MG/ML 2 ML VIAL IV PRN (15:53)
[2018-10-19] MEDS ORDERED: ATROPINE SULFATE 0.1 MG/ML 10ML SYR IV PRN (15:53)
[2018-10-19] MEDS ORDERED: fentaNYL citrate 100 MCG/2 ML VIAL IV PRN (15:53)
[2018-10-19] MEDS ORDERED: IOTHALAMATE MEGLUMINE II 17.2% 250 ML VIAL ONE (15:57)
--- NOTE | 2018-10-19 15:59 | Urology Consultation ---
Date of Consultation October 19, 2018 Assessment & Plan (1) ARJUN (acute kidney injury): (2) Gram-negative bacteremia: (3) UTI (urinary tract infection): (4) Urinary tract obstruction due to kidney stone: History of Present Illness Attending Physician: Nik Fajardo MD History of Present Illness Consult for stone. Found today to have obs 6 mm distal right stone with gram neg Klebsiella Bacteremia and ARJUN. Patient has been on broad spectrum antibiotics. Has multiple medical issues. Developed Ileus. Worsening clinical picture. CT today shows stone. Hx of large right stone. This is stable. NG was placed. Patient fatigued and ill. Worsening. No improvement with hydration. No severe pain. General abd discomfort. Long complicated medical history. Has history of bowel resection. On xarleto Allergies Allergy/AdvReac Type Severity Reaction Status Date / Time No Known Allergies Allergy Verified 10/16/18 18:51 Home Medications Home Medications Medication Instructions Recorded Confirmed Type acetaminophen [Tylenol] 0 mg PO Q6H PRN 10/16/18 10/16/18 History allopurinol 200 mg PO QDL 10/16/18 10/16/18 History ascorbate calcium-bioflavonoid 1 tab PO QDD 10/16/18 10/16/18 History [Shante-C with Bioflavonoids] atenolol 25 mg PO QAM 10/16/18 10/16/18 History calcium carbonate [Calcium 600] 1,200 mg PO QDL 10/16/18 10/16/18 History cholecalciferol (vitamin D3) 2,000 unit PO QDD 10/16/18 10/16/18 History [Vitamin D3] docusate sodium [Colace] 100 mg PO UD 10/16/18 10/16/18 History furosemide 40 mg PO BID17 10/16/18 10/16/18 History methylprednisolone 4 mg PO UD 10/16/18 10/16/18 History metolazone 2.5 mg PO 3XWK 10/16/18 10/16/18 History zgarlnrg-xrq-UT-lycopen-lutein 1 tab PO QAM 10/16/18 10/16/18 History [Centrum Silver] polyethylene glycol 3350 [Miralax] 17 g PO QAM 10/16/18 10/16/18 History potassium chloride 10 meq PO QDL 10/16/18 10/16/18 History potassium chloride 20 meq PO BIDM 10/16/18 10/16/18 History rivaroxaban [Xarelto] 15 mg PO QDD 10/16/18 10/16/18 History spironolactone 25 mg PO BIDM 10/16/18 10/16/18 History tamsulosin 0.4 mg PO QDD 10/16/18 10/16/18 History Patient History Medical History DVT prophylaxis Leukocytosis (Acute) Chronic CHF (Chronic) 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 (Acute) Acute on chronic kidney failure (Acute) Obesity (BMI 30-39.9) Right foot infection (Acute) Ambulatory dysfunction (Acute) Leukocytosis (Acute) ARJUN (acute kidney injury) (Acute) Elevated troponin (Acute) Lumbar stenosis with neurogenic claudication (Acute 09/06/13) Spondylosis of lumbar joint (Acute 09/06/13) Atrial fibrillation (Chronic 09/06/13) Cor pulmonale, chronic (Acute 09/06/13) Lumbar stenosis with neurogenic claudication Spondylosis of lumbar joint Family History Mother Kidney disease Social History Preferred Language: Mohawk Communication Ability: Effective Vocational Psychologist Required: No Beliefs That Will Affect Care: None Current Living Situation: Spouse Current Living Situation Comment: [facility]. Other Information That Helps Us Care for You: No Feels Safe at Home: Yes Safety Concerns: Feels Safe At This Time Smoking Status: Never smoker Hx Alcohol Use: Yes Alcohol type: beer Hx Substance Use: No Review of Systems Review of Systems: All systems reviewed & are unremarkable except as noted in HPI & below Constitutional: + fatigue and + weakness; no fever and no chills Integumentary: as per Subjective / HPI; no problem reported Neurologic: as per Subjective / HPI Physical Exam Constitutional: WD/WN, vitals as above + ill appearing, + obese and + lethargic Eyes: PERRL, conjunctivae normal, anicteric sclerae no scleral abnormality and no corneal abnormality ENMT: external ear and nose normal, oropharynx normal Mouth: no oral mucosal abnormality and oral mucous membranes not dry Neck: trachea midline, no thyromegaly normal visual inspection and trachea midline Respiratory: + labored breathing; no respiratory distress Cardiovascular: Rate/Rhythm: not tachycardic Gastrointestinal (Abdomen): normal bowel sounds, soft, nontender, no hepatosplenomegaly Inspection/Auscultation: + abdomen distended and normal bowel sounds; + abdomen abnormal to inspection (Incisional scar in the midline) Percussion/Palpation: + abdomen tender and abdomen soft Musculoskeletal: Extremities: no cyanosis and no clubbing Skin: no rashes, warm and dry normal turgor and + erythema (Left foot with erythema and warmth but no tenderness at all); no rashes Neurologic: CN's II-XI intact bilaterally, moves all extremities and awake; no focal motor deficits Motor/Sensory: no tremor and no asterixis Psychiatric: Orientation: alert and oriented x 3 Affect: + depressed affect Genitourinary: + CVA tenderness (On the right); no penis abnormality and no scrotum abnormality Results & Data Vital Signs (Past 12 Hours) Vital Signs Temp Pulse Pulse Resp BP Pulse Ox 10/19/18 11:37 36.6 C 82 24 143/94 H 92 10/19/18 07:15 77 10/19/18 07:07 36.9 C 88 19 146/80 H 94
[2018-10-19] MEDS: cefTRIAXone SODIUM 2,000 MG in DEXTROSE 5% 50 ML IV SCH (16:12)
[2018-10-19] MEDS ORDERED: MIDAZOLAM HCL 1 MG/ML 2ML VIAL ONE (16:25)
[2018-10-19] MEDS ORDERED: BELLADONNA/OPIUM SUPP 60 MG SUPP PR ONE (16:26)
[2018-10-19] MEDS ORDERED: KETAMINE HCL INJ 50 MG/ML 10 ML VIAL ONE (16:31)
--- NOTE | 2018-10-19 16:46 | Operative Report ---
Post Operative Report Pre & Post Diagnosis Septic Obstructing Right Distal stone Same Operation Date: 10/19/18 14:20 <No data on this case meets the specified criteria> Procedure Cystoscopy with right aspiration, retrograde pyelogram, and stent placement. Operation Date: 10/19/18 14:20 <No data on this case meets the specified criteria> Surgeon Moose Peraza, II, DO Junction Maker None Estimated Blood Loss 2 Findings Consistent with Post-Op Diagnosis Specimens Urine right renal pelvis Drains 6 Fr Multilength. 20 Fr Coude gar Anesthesia Type MAC Complications none Disposition Disposition: Recovery Room Indications Obstructing stone with sepsis and bacteremia. Risks and benefits discussed at length. Urgent procedure. Description of Procedure Patient was consented and brought back to the operating room. Patient was placed under anesthesia in the supine position and moved to the dorsal lithotomy position. Patient was prepped and draped in the regular sterile fashion. A time out was completed. A 30degree Cystoscope was placed into the bladder and the entire bladder was examined. The UO's were identified. The Right was cannulized with a catheter and this was advanced. The obstructing stone was encountered and the wire was used to manipulate the catheter passed. An aspiration of urine was taken and sent for micro analysis. At this point, a retrograde pyelogram was completed. A wire was then placed. With the wire in place, a 6 Fr Double J stent was placed. It was confirmed with fluoroscopy. With the stent in place, The scope was removed. A 20 Fr Gar was placed. The patient was cleaned, aroused from anesthesia, and transferred to the pacu in stable condition having tolerated the procedure well with no complications. I was present and participated in all aspects of the procedure. The patient will be monitored in the PACU until transferred. Will continue to monitor on antibiotics in the ICU. I attest to the content of the Intraoperative Record and any orders documented therein. Any exceptions are noted below.
--- NOTE | 2018-10-19 17:16 | Anesthesiology Progress Note ---
Date of Service October 19, 2018 Anesthesia Post Procedure Vital Signs Vital Signs: Temp Pulse Pulse Pulse Resp BP Pulse Ox 10/19/18 17:10 76 24 126/78 98 10/19/18 17:00 83 24 141/94 H 98 10/19/18 16:53 36.2 C L 80 21 133/94 99 10/19/18 15:55 36.5 C 71 24 135/89 93 10/19/18 15:40 36.9 C 69 18 138/92 93 10/19/18 11:37 36.6 C 82 24 143/94 H 92 10/19/18 07:15 77 10/19/18 07:07 36.9 C 88 19 146/80 H 94 10/19/18 03:32 36.8 C 67 20 142/86 H 94 10/18/18 23:43 81 18 136/95 94 10/18/18 22:31 67 10/18/18 19:32 36.8 C 75 17 139/71 95 10/18/18 18:16 56 L 18 96 Pain Intensity Right Leg: Pain Intensity: 8 Penis: Pain Intensity: 5 Transfer of Care Handoff Completed per policy Notes Mental Status: alert / awake / arousable and participated in evaluation Patient Amnestic to Procedure: Yes Nausea / Vomiting: adequately controlled Pain: adequately controlled Airway Patency, RR, SpO2: stable & adequate BP & HR: stable & adequate Hydration State: stable & adequate Anesthetic Complications: no major complications apparent and Pt Satisfied with anesthetic care
--- NOTE | 2018-10-19 17:21 | Fluoroscopy Report ---
FL retrograde includes kub CLINICAL HISTORY: KIDNEY STONEnephrocalcinosis COMPARISON STUDY: None FLUOROSCOPY TIME: 25 seconds NUMBER OF FLUOROSCOPIC IMAGES: 3 FINDINGS: Image intensifier support for right ureteral stent placement IMPRESSION: Image intensifier support for an intraoperative right ureteral stent placement The above report was generated using voice recognition software. It may contain grammatical, syntax or spelling errors. Electronically signed by: Andrez Tolliver M.D. 10/19/2018 5:20 PM
[2018-10-19] MEDS ORDERED: BELLADONNA/OPIUM SUPP 60 MG SUPP PR PRN (17:22)
[2018-10-19] MEDS ORDERED: METOPROLOL TARTRATE 1 MG/ML VIAL IV PRN (17:42)
[2018-10-19] MEDS ORDERED: HYDROCORTISONE SOD 50 MG in SYRINGE 0 ML IV SCH (17:42)
[2018-10-20 06:40] LABS: BUN Creatinine Ratio 38.7 (10-20); Calcium 9.5 mg/dl (8.5-10.1); Creatinine Clr Calc Pharmacy 25.2 ml/min; Est GFR (African American) 22.9; Est GFR (Non-African American) 19.8; Magnesium 2.9 mg/dl (1.8-2.4); Potassium 3.3 mmol/L (3.5-5.1)
[2018-10-20 06:41] LABS: Phosphorus 5.1 mg/dl (2.5-4.9)
[2018-10-20] MEDS: HYDROCORTISONE SOD 50 MG in SYRINGE 0 ML IV SCH ×3 (06:41→21:29)
[2018-10-20] MEDS ORDERED: SODIUM CHLORIDE 0.9% 1000ML 1,000 ML IV SCH (07:30)
[2018-10-20] MEDS ORDERED: POTASSIUM CHLORIDE 20 MEQ in SODIUM CHLORIDE 0.9% 1000ML 1,000 ML IV SCH (07:45)
[2018-10-20] MEDS: NSS + 20MEQ KCL 20 MEQ/1,000 ML BAG IV SCH ×2 (08:11→18:27)
--- NOTE | 2018-10-20 10:00 | Nephrology Progress Note ---
Date of Service October 20, 2018 Assessment & Plan (1) Acute on chronic kidney failure: -- Clinically consistent with pre-renal physiology and ATN -- Creatinine slightly increased today consistent with ATN -- Agree with maintaining an even fluid balance -- Suggest a balanced IVF at low rate cautiously infused -- Strict I/O's -- POC discussed with Dr. 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 Mauricio was taken emergently to the OR for stent placement. He thankfully tolerated the procedure well. There were no complications. Purulent drainage noted. He remains weak but notes significant improvement today. He is breathing comfortably at this time. Denies fevers or chills. Review of Systems Review of Systems: All systems reviewed & are unremarkable except as noted in HPI & below Physical Exam Constitutional: + ill appearing and + obese Eyes: no scleral abnormality and no corneal abnormality ENMT: Mouth: no oral mucosal abnormality and oral mucous membranes not dry Neck: normal visual inspection and trachea midline Respiratory: + labored breathing Auscultation: lungs clear to auscultation bilaterally and + rales Cardiovascular: Rate/Rhythm: regular rate Heart Sounds: normal S1 and normal S2; no murmur Vessels: + JVD Extremities: no edema Gastrointestinal (Abdomen): Inspection/Auscultation: + abdomen distended Percussion/Palpation: + abdomen tender Musculoskeletal: Extremities: no cyanosis and no clubbing Skin: normal turgor; no rashes Neurologic: Motor/Sensory: no tremor and no asterixis Psychiatric: Orientation: alert Affect: euthymic affect Results & Data Vital Signs (Past 12 Hours) Vital Signs Temp Pulse Resp BP Pulse Ox 10/20/18 07:36 36.4 C L 73 18 137/74 97 10/20/18 04:00 37.1 C 62 18 131/81 98 10/20/18 00:01 37.3 C 69 19 97 Laboratory Results Laboratory Results - last 24 hr 10/19/18 10/19/18 10/20/18 13:01 18:33 00:17 Hgb 15.9 Sodium Potassium Chloride Carbon Dioxide Anion Gap BUN Creatinine Est Cr Clr Drug Dosing Est GFR ( Amer) Est GFR (Non-Af Amer) BUN/Creatinine Ratio Glucose POC Glucose 129 H 140 H Calcium Phosphorus Magnesium 10/20/18 10/20/18 05:51 07:16 Hgb Sodium 138 Potassium 3.3 L Chloride 94 L Carbon Dioxide 35 H Anion Gap 9.0 BUN 113 H Creatinine 2.92 H Est Cr Clr Drug Dosing 25.2 Est GFR ( Amer) 22.9 Est GFR (Non-Af Amer) 19.8 BUN/Creatinine Ratio 38.7 H Glucose 139 H POC Glucose 126 H Calcium 9.5 Phosphorus 5.1 H Magnesium 2.9 H (1) Chronic CHF Heart failure type: diastolic Qualified Code(s): I50.32 - Chronic diastolic (congestive) heart failure
--- NOTE | 2018-10-20 10:01 | Urology Progress Note ---
Date of Service October 20, 2018 Assessment & Plan (1) Urinary tract obstruction due to kidney stone: 77yo M POD #1 s/p emergent R stent placement secondary to obstructing 6mm distal right stone, klebsiella bacteremia and ARJUN. Still acutely ill, but appears stable from perspective. Tolerating stent well, unfortunately Cr continues to climb. Appreciate nephrology's input. Continue gar catheter, monitoring hematuria. H/H, BP stable. We will continue to follow while he is inpatient. Definitive stone management will be addressed once clinical condition improves. Subjective 77yo M POD #1 s/p emergent stent placement secondary to obstructing 6mm distal right stone, klebsiella bacteremia and ARJUN Still very ill appearing, lethargic but able to maintain wakefullness through our conversation. NG tube draining, oxymask intact. Answering questions appropriately. Tolerating stent well. Denies flank or suprapubic pain. Unfortunately Cr continues to climb despite stent placement. Gar catheter placed post procedure, draining very dark purple/red urine - this is unchanged from yesterday per Dr. Peraza. He has no further complaints. Review of Systems Review of Systems: All systems reviewed & are unremarkable except as noted in HPI & below Physical Exam Physical Exam: lethargic, oriented x3 RRR - oxymask intact, easily short of breath when talking. Abd large, soft, nontender. gar draining dark purple/red urine, no clots. Results & Data Vital Signs (Past 12 Hours) Vital Signs Temp Pulse Resp BP Pulse Ox 10/20/18 07:36 36.4 C L 73 18 137/74 97 10/20/18 04:00 37.1 C 62 18 131/81 98 10/20/18 00:01 37.3 C 69 19 97 Laboratory Results Laboratory Results - last 48 hr 10/19/18 10/19/18 10/19/18 06:03 06:03 06:03 WBC 13.63 H RBC 4.46 L Hgb 15.7 Hct 42.6 MCV 95.5 MCH 35.2 H MCHC 36.9 H RDW Std Deviation 52.0 H RDW Coeff of Anthony 15.0 H Plt Count 96 L MPV 11.8 H Immature Gran % (Auto) 0.6 Neut % (Auto) 91.1 Lymph % (Auto) 3.4 Tama % (Auto) 4.8 Eos % (Auto) 0.0 Baso % (Auto) 0.1 Immature Gran # (Auto) 0.08 H Neut # (Auto) 12.42 H Lymph # (Auto) 0.46 L Tama # (Auto) 0.65 H Eos # (Auto) 0.00 Baso # (Auto) 0.02 Sodium 134 L Potassium 3.7 D Chloride 96 L Carbon Dioxide 25 Anion Gap 13.0 H BUN 91 H Creatinine 2.73 H Est Cr Clr Drug Dosing 27.3 Est GFR ( Amer) 24.9 Est GFR (Non-Af Amer) 21.5 BUN/Creatinine Ratio 33.4 H Glucose 144 H POC Glucose Calcium 9.6 Phosphorus Magnesium Total Bilirubin 1.4 H Direct Bilirubin 0.6 H AST 24 ALT 36 Alkaline Phosphatase 61 Total Protein 7.5 Albumin 2.6 L Lipase 46 L 10/19/18 10/19/18 10/20/18 13:01 18:33 00:17 WBC RBC Hgb 15.9 Hct MCV MCH MCHC RDW Std Deviation RDW Coeff of Anthony Plt Count MPV Immature Gran % (Auto) Neut % (Auto) Lymph % (Auto) Tama % (Auto) Eos % (Auto) Baso % (Auto) Immature Gran # (Auto) Neut # (Auto) Lymph # (Auto) Tama # (Auto) Eos # (Auto) Baso # (Auto) Sodium Potassium Chloride Carbon Dioxide Anion Gap BUN Creatinine Est Cr Clr Drug Dosing Est GFR ( Amer) Est GFR (Non-Af Amer) BUN/Creatinine Ratio Glucose POC Glucose 129 H 140 H Calcium Phosphorus Magnesium Total Bilirubin Direct Bilirubin AST ALT Alkaline Phosphatase Total Protein Albumin Lipase 10/20/18 10/20/18 10/20/18 05:51 07:16 11:22 WBC RBC Hgb Hct MCV MCH MCHC RDW Std Deviation RDW Coeff of Anthony Plt Count MPV Immature Gran % (Auto) Neut % (Auto) Lymph % (Auto) Tama % (Auto) Eos % (Auto) Baso % (Auto) Immature Gran # (Auto) Neut # (Auto) Lymph # (Auto) Tama # (Auto) Eos # (Auto) Baso # (Auto) Sodium 138 Potassium 3.3 L Chloride 94 L Carbon Dioxide 35 H Anion Gap 9.0 BUN 113 H Creatinine 2.92 H Est Cr Clr Drug Dosing 25.2 Est GFR ( Amer) 22.9 Est GFR (Non-Af Amer) 19.8 BUN/Creatinine Ratio 38.7 H Glucose 139 H POC Glucose 126 H 124 H Calcium 9.5 Phosphorus 5.1 H Magnesium 2.9 H Total Bilirubin Direct Bilirubin AST ALT Alkaline Phosphatase Total Protein Albumin Lipase
[2018-10-20] MEDS: POLYETHYLENE (MIRALAX) 17 GM PACK PO SCH (10:42)
[2018-10-20] MEDS: cefTRIAXone SODIUM 2,000 MG in DEXTROSE 5% 50 ML IV SCH (16:36)
--- NOTE | 2018-10-20 19:07 | Hospitalist Progress Note ---
Date of Service October 20, 2018 Assessment & Plan (1) Generalized weakness: UTI Klebsiella seen in the urine with the same strain found in the blood Also presented with severe right foot pain with gout flare which is improved Likely had some metabolic encephalopathy and presentation from this infection which has improved however he did have a transient worsening with a psoriasis type symptoms associated with a renal stone associated hydronephrosis with purulent pyelonephritis status post cystoscopy on 10/19 PT/OT consults placed (2) Gram-negative bacteremia: Blood as well as urine culture growing Klebsiella oxytoca previously he has had Klebsiella oxytoca growing in his urine culture from 07/2018- Consider urological evaluation for right hydronephrosis with urgent surgical correction and purulent drainage above the stone consistent with an upper urinary tract infection or pyelonephritis. Patient is markedly improved since that time despite continuing hematuria Patient sevenths activities patient be changed to Rocephin 2 g IV daily although Zosyn and cover things (3) UTI (urinary tract infection): Renal ultrasound did not show pyelonephritis however CAT scan did and cystoscopy confirmed the presence of this May need to consider a longer duration of antibiotic therapy will involve infectious disease once patient recovers somewhat more Does have a history of prostate cancer that is being observed at this time (4) Acute on chronic kidney failure: With significantly elevated BUN and creatinine nephrology feels this to be prerenal likely due to infection and poor p.o. 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 Rate controlled almost too much with bradycardia after admission likely secondary to atenolol use in the setting of ARJUN as atenolol is renally excreted -Continue hold atenolol -Currently will hold Xarelto given hematuria (7) Chronic CHF: Chronic diastolic CHF-currently stable. Clinically patient appeared volume overloaded with JVD and some respiratory distress associate with crackles on auscultation the patient was given Lasix as mentioned above 40 mg in the evening of 10/18, 80 mg in the morning of 10/19 none the morning of 10/20 (8) Leukocytosis: Likely secondary to infection (9) Elevated troponin: Mildly elevated troponin 0.075/0 0.087/0.053 which is likely secondary to myocardial demand ischemia in the setting of acute illness He has no ischemic changes on his ECG No further chest pain or other symptoms (10) Hyponatremia: improved with renal oversight (11) Hyperkalemia: resolved after kayexalate (12) Lumbar stenosis with neurogenic claudication: Long-standing issue with history of back surgery, level of discomfort is at baseline (13) Ambulatory dysfunction: Secondary to generalized weakness from acute illness in the setting of chronic lower back pain issues PT/OT consultations ordered (14) Prostate cancer: Diagnosed in 2017 and follows with urology, Dr. 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 Was recommended to have follow-up imaging in 1 year-I do not see evidence of this -Needs follow-up imaging routinely as an outpatient (18) DVT prophylaxis: Currently we will hold Xarelto begin SCDs Disposition-remain hospitalized PT/OT consults placed He lives at [facility] independently, but could go to the [facility] portion if needed after discharge Subjective Patient feels somewhat better today his NG did not drain significantly overnight this was removed he did have a bit production of stool. His abdomen is less distended and tender. Is not significant flank pain he is having significant hematuria he has a Lr catheter in place Review of Systems Review of Systems: ROS: Overall PEEP patient feels fatigued and tired is much less respiratory distress No double vision blurry vision No problems with speech or swallowing No palpitations, chest pain or pressure Feels some rapid breathing and increased work of breathing according to the patient No abdominal pain nausea vomiting diarrhea changes in appetite or weight No burning urine bloody tinged urine No focal joint pain or muscle pain No skin rashes or oral lesions No unusual bruising or bleeding No focused back pain or numbness or loss of strength No changes in memory or confusion Physical Exam Physical Exam: The patient appeared well nourished and normally developed. Vital signs as documented. Head exam is unremarkable. normocephalic, atraumatic Neck is without jugular venous distension, thyromegaly, or lymphademopathy Lungs are with some mild scattered rhonchi but no wheezes Cardiac exam reveals Rhythm is regular. First and second heart sounds normal. Abdominal exam reveals distended normal bowel sounds, less tympany minor discomfort to the left mid abdomen (although his issue was in the right kidney) Extremities are nonedematous and both pedal pulses are present Neurologic exam is A&Ox3, no focal deficits, strength is equal bilateral Psychologically seems neither anxious or depressed Skin is warm / Dry Results & Data Vital Signs (Past 12 Hours) Vital Signs Temp Pulse Pulse Resp BP Pulse Ox 10/20/18 15:25 36.5 C 70 18 139/77 99 10/20/18 11:47 36.5 C 65 20 131/81 100 10/20/18 07:36 36.4 C L 73 18 137/74 97 10/20/18 07:15 74 (1) Chronic CHF Heart failure type: diastolic Qualified Code(s): I50.32 - Chronic diastolic (congestive) heart failure
[2018-10-20] MEDS: ALBUT/IPRATROP 3MG/0.5MG NEB 3 ML VIAL NEB PRN (20:10)
[2018-10-21] MEDS: NSS + 20MEQ KCL 20 MEQ/1,000 ML BAG IV SCH (04:27)
[2018-10-21] MEDS ORDERED: GUAIFENESIN/CODEINE 100MG/10MG 5ML UDC PO STA (04:48)
[2018-10-21] MEDS: HYDROCORTISONE SOD 50 MG in SYRINGE 0 ML IV SCH ×3 (05:04→22:36)
--- NOTE | 2018-10-21 06:40 | Hospitalist Progress Note ---
Date of Service October 21, 2018 Assessment & Plan (1) Generalized weakness: UTI Klebsiella seen in the urine with the same strain found in the blood Also presented with severe right foot pain with gout flare which is improved Likely had some metabolic encephalopathy and presentation from this infection which has improved however he did have a transient worsening with a SIRS symptoms associated with a renal stone associated hydronephrosis with purulent pyelonephritis status post cystoscopy on 10/19 PT/OT consults placed, pt is planning on Rehab at the time of discharge (2) Gram-negative bacteremia: Blood as well as urine culture growing Klebsiella oxytoca previously he has had Klebsiella oxytoca growing in his urine culture from 07/2018- urological intervention for right hydronephrosis with urgent surgical corre ction and purulent drainage above the stone consistent with an upper urinary tract infection or pyelonephritis. Patient is markedly improved since that time despite continuing hematuria Patient sevenths activities patient be changed to Rocephin 2 g IV daily although Zosyn will have ID opinion to determine duration of treatment and if retained renal stones need to be adressed (3) UTI (urinary tract infection): Renal ultrasound did not show pyelonephritis however CAT scan did and cystoscopy confirmed the presence of this May need to consider a longer duration of antibiotic therapy will involve infectious disease once patient recovers somewhat more Does have a history of prostate cancer that is being observed at this time urology will follow up as outpt to consider means to adress stone in a more formal way (4) Acute on chronic kidney failure: With significantly elevated BUN and creatinine nephrology feels this to be prerenal likely due to infection and poor p.o. intake with dehydration in the setting of continued diuretic use Renal ultrasound without evidence of obstruction CT scan showed hydro-on the right which was relieved Patient was given a dose of Lasix 40 on 10/18 Lasix is dosed on a daily basis decided by his clinical presentation and laboratory values, continuing to hold metolazone, and spironolactone due to acute kidney injury Intravenous fluids were re-begun on the evening of 10/19, potassium is added in the morning of 10/20 due to hypokalemia IVF stopped and diuretics resume 10/21 this seems to be a day to day decision due to the pts issue with pulmonary htn worsening with hydration and ATN worsening with diuresis (5) 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: Presented with a severely painful right forefoot with clinical signs and symptoms of acute gout attack Was treated upon admission with several doses of colchicine and IV Solu-Medrol -Continue to treat underlying renal failure Patient is on hydrocortisone due to recent steroid usage to avoid Jolley's -Continue allopurinol 100 mg daily (6) Atrial fibrillation: Chronic. Rate controlled with bradycardia after admission likely secondary to atenolol use in the setting of ARJUN as atenolol is renally excreted -Continue hold atenolol -Currently will hold Xarelto given hematuria (7) Chronic CHF: Chronic diastolic CHF-currently stable. Clinically patient appeared volume overloaded with JVD and some respiratory distress associate with crackles on auscultation the patient was given Lasix as mentioned above 40 mg in the evening of 10/18, 80 mg in the morning of 10/19 none the morning of 10/20, lasix dosed on 10/21 (8) Leukocytosis: Likely secondary to infection (9) Elevated troponin: Mildly elevated troponin 0.075/0 0.087/0.053 which is likely secondary to myocardial demand ischemia in the setting of acute illness He has no ischemic changes on his ECG No further chest pain or other symptoms (10) Hyponatremia: improved with renal oversight (11) Hyperkalemia: resolved after kayexalate (12) Lumbar stenosis with neurogenic claudication: Long-standing issue with history of back surgery, level of discomfort is at baseline (13) Ambulatory dysfunction: Secondary to generalized weakness from acute illness in the setting of chronic lower back pain issues PT/OT consultations ordered (14) Prostate cancer: Diagnosed in 2017 and follows with urology, Dr. 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 Was recommended to have follow-up imaging in 1 year-I do not see evidence of this -Needs follow-up imaging routinely as an outpatient (18) DVT prophylaxis: Currently we will hold Xarelto begin SCDs Disposition-remain hospitalized PT/OT consults placed He lives at [facility] independently, but could go to the custodial portion if needed after discharge Subjective Patient feels somewhat improved his abdominal pain still having some mild respiratory distress. His BUN is gone off his creatinine is somewhat down. He might be mildly volume overloaded some IV fluids yesterday. Review of Systems Review of Systems: ROS: well nourished well developed. No double vision blurry vision No problems with speech or swallowing No palpitations, chest pain or pressure Mild shortness of breath some upper airway breath sounds Mild abdominal pain he has no nausea vomiting diarrhea No burning urine hematuria in Lr catheter bag No focal joint pain or muscle pain No skin rashes or oral lesions No unusual bruising or bleeding No focused back pain or numbness or loss of strength No changes in memory or confusion Physical Exam Physical Exam: The patient appeared in mild distress Vital signs as documented. Head exam is unremarkable. normocephalic, atraumatic Neck is with minor jugular venous distension, thyromegaly, or lymphademopathy Lungs are mild rhonchi at the base Cardiac exam reveals Rhythm is regular. Abdominal exam reveals normal bowel sounds, mild tenderness to examination Extremities are mildly edematous and both pedal pulses are present Neurologic exam is A&Ox3, no focal deficits, strength is equal bilateral Psychologically seems neither anxious or depressed Skin is warm / Dry Results & Data Vital Signs (Past 12 Hours) Vital Signs Temp Pulse Resp BP Pulse Ox 10/21/18 03:43 36.7 C 62 20 139/80 93 10/21/18 03:40 88 L 10/21/18 00:17 36.9 C 64 16 128/67 98 10/20/18 20:12 71 13 99 10/20/18 19:25 36.4 C L 73 18 139/69 100 (1) Chronic CHF Heart failure type: diastolic Qualified Code(s): I50.32 - Chronic diastolic (congestive) heart failure
[2018-10-21 07:47] LABS: Hemoglobin 13.3 g/dL (14.0-18.0); Mean Corpuscular Hgb Conc 34.1 g/dL (32-36); Mean Corpuscular Volume 99.7 fL (80-100); Mean Platelet Volume 12.8 fL (7.4-10.4); Platelet Count 90 K/uL (130-400); RDW Coefficient of Variation 15.4 % (11.5-14.5); RDW Standard Deviation 55.8 fL (36.4-46.3); Red Blood Count 3.91 M/uL (4.7-6.1); White Blood Count 10.24 K/uL (4.8-10.8)
[2018-10-21 07:51] LABS: Albumin Level 2.2 gm/dl (3.4-5.0); BUN Creatinine Ratio 48.2 (10-20); Calcium 8.8 mg/dl (8.5-10.1); Creatinine Clr Calc Pharmacy 31.4 ml/min; Est GFR (African American) 29.8; Est GFR (Non-African American) 25.7; Phosphorus 4.8 mg/dl (2.5-4.9); Potassium 3.2 mmol/L (3.5-5.1)
--- NOTE | 2018-10-21 10:18 | Nephrology Progress Note ---
Date of Service October 21, 2018 Assessment & Plan (1) Acute on chronic kidney failure: -- Clinically consistent with pre-renal physiology and ATN -- Creatinine stable, BUN rising -- Suspect he is developing recurrent CHF with IVF -- Stop IVF -- Provide furosemide as needed to encourage slightly positive fluid balance -- Repeat urine sodium -- Strict I/O's -- Medications are appropriately dosed for kidney function -- No current indication for dialysis (2) Gram-negative bacteremia: -- Klebsiella in urine and blood -- POD # 2 s/p cystoscopy and stent placement for hydronephrosis with purulent pyelonephritis due to obstructing kidney stone (3) UTI (urinary tract infection): (4) 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: (5) Atrial fibrillation: (6) Chronic CHF: -- Additional furosemide as needed to encourage negative fluid balance (7) Leukocytosis: (8) Hyponatremia: (9) Hyperkalemia: -- Low potassium diet -- Treated with SPS 10/17/18 (10) Lumbar stenosis with neurogenic claudication: Long-standing issue with history of back surgery (11) Pulmonary hypertension: -- RVSP 50-60 -- Avoid significantly positive fluid balance Subjective Mauricio was resting in bed this morning. He reports some dyspnea. He denies cough. He does not have significant orthopnea. Abdomen is slightly tender in the right upper quadrant. His primary concern is nausea and poor appetite. Review of Systems Review of Systems: All systems reviewed & are unremarkable except as noted in HPI & below Physical Exam 2 Constitutional: + ill appearing and + obese Eyes: no scleral abnormality and no corneal abnormality ENMT: Mouth: no oral mucosal abnormality and oral mucous membranes not dry Neck: normal visual inspection and trachea midline Respiratory: + labored breathing Auscultation: lungs clear to auscultation bilaterally and + rales Cardiovascular: Rate/Rhythm: regular rate Heart Sounds: normal S1 and normal S2; no murmur Vessels: + JVD Extremities: no edema Gastrointestinal (Abdomen): Inspection/Auscultation: + abdomen distended Percussion/Palpation: + abdomen tender Musculoskeletal: Extremities: no cyanosis and no clubbing Skin: normal turgor; no rashes Neurologic: Motor/Sensory: no tremor and no asterixis Psychiatric: Orientation: alert Affect: euthymic affect Results & Data Vital Signs (Past 12 Hours) Vital Signs Temp Pulse Pulse Resp BP Pulse Ox 05/30/19 07:41 36.3 C L 62 20 146/76 H 99 10/21/18 03:43 36.7 C 62 20 139/80 93 10/21/18 03:40 88 L 10/21/18 00:17 36.9 C 64 16 128/67 98 Laboratory Results Laboratory Results - last 24 hr 10/20/18 10/20/18 10/20/18 11:22 16:27 20:43 WBC RBC Hgb Hct MCV MCH MCHC RDW Std Deviation RDW Coeff of Anthony Plt Count MPV Sodium Potassium Chloride Carbon Dioxide Anion Gap BUN Creatinine Est Cr Clr Drug Dosing Est GFR ( Amer) Est GFR (Non-Af Amer) BUN/Creatinine Ratio Glucose POC Glucose 124 H 128 H 133 H Calcium Phosphorus Albumin 10/21/18 10/21/18 06:32 06:32 WBC 10.24 RBC 3.91 L Hgb 13.3 L Hct 39.0 L MCV 99.7 MCH 34.0 MCHC 34.1 RDW Std Deviation 55.8 H RDW Coeff of Anthony 15.4 H Plt Count 90 L MPV 12.8 H Sodium 145 D Potassium 3.2 L Chloride 103 Carbon Dioxide 33 H Anion Gap 9.0 BUN 113 H Creatinine 2.35 H D Est Cr Clr Drug Dosing 31.4 Est GFR ( Amer) 29.8 Est GFR (Non-Af Amer) 25.7 BUN/Creatinine Ratio 48.2 H Glucose 127 H POC Glucose Calcium 8.8 Phosphorus 4.8 Albumin 2.2 L (1) Chronic CHF Heart failure type: diastolic Qualified Code(s): I50.32 - Chronic diastolic (congestive) heart failure
[2018-10-21] MEDS: POLYETHYLENE (MIRALAX) 17 GM PACK PO SCH (10:42)
--- NOTE | 2018-10-21 14:39 | Urology Progress Note ---
Date of Service October 21, 2018 Assessment & Plan (1) Urinary tract obstruction due to kidney stone: 77yo M POD #2 s/p emergent R stent placement secondary to obstructing 6mm distal right stone, klebsiella bacteremia and ARJUN. Of note, he also has prostate cancer (Mary 3+4) which is being monitored by active surveillance due to comorbidities by Dr. Olivarez. Clinically improved today, he continues to tolerate stent well. Gross hematuria again observed but improved, light red draining adequate amounts. Lr management per primary team, okay to remove once no longer needed for I&Os. He is much more alert and conversive today. We discussed the management of stones will be pursued once clinically stable. He is receptive of this. We will make close outpatient follow-up to discuss management options. We will continue to monitor peripherally while inpatient. Subjective 77yo M POD #2 s/p emergent R stent placement secondary to obstructing 6mm distal right stone, klebsiella bacteremia and ARJUN. Sitting up in chair today. Denies stent irritation or discomfort. NGT removed , tolerating clear liquids Denies n/v/f/c. Denies sob or chest pain. Much more alert and conversive today Lr catheter draining thin, light red urine, Improved from yesterday. UC&S from kidney aspirate confirms Klebsiella oxytoca, consistent with BCx results. Labs reviewed - WBC normalized today, Creatinine improving, H/H remains stable. Review of Systems Review of Systems: All systems reviewed & are unremarkable except as noted in HPI & below Physical Exam Physical Exam: A&Ox3 RRR Abd soft, nontender No suprapubic tenderness on palpation Lr draining thin, light red urine. no clots. No LE edema Results & Data Vital Signs (Past 12 Hours) Vital Signs Temp Pulse Pulse Pulse Resp BP Pulse Ox 10/21/18 11:54 36.6 C 68 20 138/62 94 10/21/18 10:27 10/21/18 07:41 36.3 C L 62 20 146/76 H 99 10/21/18 07:15 63 10/21/18 03:43 36.7 C 62 20 139/80 93 10/21/18 03:40 88 L Pulse Ox 10/21/18 11:54 10/21/18 10:27 93 10/21/18 07:41 10/21/18 07:15 10/21/18 03:43 10/21/18 03:40
[2018-10-21] MEDS: cefTRIAXone SODIUM 2,000 MG in DEXTROSE 5% 50 ML IV SCH (15:59)
[2018-10-21 16:45] LABS: Albumin Level 2.3 gm/dl (3.4-5.0); BUN Creatinine Ratio 47.9 (10-20); Calcium 8.8 mg/dl (8.5-10.1); Creatinine Clr Calc Pharmacy 32.8 ml/min; Est GFR (African American) 31.4; Est GFR (Non-African American) 27.1; Potassium 2.9 mmol/L (3.5-5.1)
[2018-10-21] MEDS ORDERED: FUROSEMIDE 60 MG in SYRINGE 0 ML IV ONE (18:15)
[2018-10-22] MEDS: HYDROCORTISONE SOD 50 MG in SYRINGE 0 ML IV SCH ×3 (06:04→21:41)
--- NOTE | 2018-10-22 07:55 | Urology Progress Note ---
Date of Service October 22, 2018 Assessment & Plan (1) Urinary tract obstruction due to kidney stone: 77yo M POD #2 s/p emergent R stent placement secondary to obstructing 6mm distal right stone, klebsiella bacteremia and ARJUN, prostate cancer on observation. No new complaints from perspective, hematuria resolved. Continue abx per ID recommendations. Gar management per primary team, okay to remove once no longer needed for I&Os. Outpatient f/u arranged in 2 weeks time to discuss timing of stone management once clinically stable. Thank you for allowing us to participate in the care of Mr. Lundberg. Please reconsult us for new questions, concerns or changes in patient status. Subjective 77yo M POD #2 s/p emergent R stent placement secondary to obs 6mm distal stone, klebsiella bacteremia and ARJUN. Slept well last night, appears comfortable this AM. Sleeping but easily arousable. Denies n/v/f/c. Denies SOB or chest pain. No new issues or complaints from standpoint. Continues to deny flank or suprapubic pain. Tolerating catheter fine. Hematuria largely resolved, draining yellow hazy urine now. Review of Systems Review of Systems: All systems reviewed & are unremarkable except as noted in HPI & below Physical Exam Physical Exam: A&Ox3 RRR abd soft, nontender no suprapubic pain on palpation gar draining hazy yellow Results & Data Vital Signs (Past 12 Hours) Vital Signs Temp Pulse Pulse Resp BP Pulse Ox 10/22/18 06:57 36.8 C 73 18 135/71 94 10/22/18 06:21 60 10/22/18 04:01 36.6 C 78 18 134/55 L 91 10/21/18 23:45 57 L 10/21/18 23:39 36.5 C 60 18 120/64 94
[2018-10-22] MEDS: POLYETHYLENE (MIRALAX) 17 GM PACK PO SCH (08:01)
[2018-10-22 08:06] LABS: BUN Creatinine Ratio 49.8 (10-20); Calcium 9.2 mg/dl (8.5-10.1); Est GFR (African American) 35.2; Est GFR (Non-African American) 30.3; Potassium 2.9 mmol/L (3.5-5.1)
--- NOTE | 2018-10-22 09:58 | Nephrology Progress Note ---
Date of Service October 22, 2018 Assessment & Plan (1) Acute on chronic kidney failure: -- Clinically consistent with pre-renal physiology and ATN -- Creatinine improving -- Provide furosemide as needed to encourage slightly negative fluid balance -- Strict I/O's -- Medications are appropriately dosed for kidney function -- No current indication for dialysis (2) Gram-negative bacteremia: -- Klebsiella in urine and blood -- POD # 3 s/p cystoscopy and stent placement for hydronephrosis with purulent pyelonephritis due to obstructing kidney stone (3) UTI (urinary tract infection): (4) Atrial fibrillation: -- Anticoagulated with Xarelto (5) Chronic CHF: -- Additional furosemide as needed to encourage negative fluid balance (6) Pulmonary hypertension: -- RVSP 50-60 -- Avoid Subjective No acute events overnight. Mauricio feels well this morning. He denies dyspnea. No fevers or chills. No bowel movement. Denies abdominal or flank pain. Urine clearing. Review of Systems Review of Systems: All systems reviewed & are unremarkable except as noted in HPI & below Physical Exam Constitutional: + morbidly obese; no acute distress Eyes: no scleral abnormality and no corneal abnormality ENMT: Mouth: no oral mucosal abnormality and oral mucous membranes not dry Neck: normal visual inspection and trachea midline Respiratory: normal respiratory effort Auscultation: + rales Cardiovascular: Rate/Rhythm: regular rate Heart Sounds: normal S1 and normal S2; no murmur Vessels: + JVD Extremities: no edema Gastrointestinal (Abdomen): Inspection/Auscultation: + abdomen distended Percussion/Palpation: abdomen nontender Musculoskeletal: Extremities: no cyanosis and no clubbing Skin: normal turgor; no rashes Neurologic: Motor/Sensory: no tremor and no asterixis Psychiatric: Orientation: alert Affect: euthymic affect Results & Data Vital Signs (Past 12 Hours) Vital Signs Temp Pulse Pulse Resp BP Pulse Ox 10/22/18 06:57 36.8 C 73 18 135/71 94 10/22/18 06:21 60 10/22/18 04:01 36.6 C 78 18 134/55 L 91 10/21/18 23:45 57 L 10/21/18 23:39 36.5 C 60 18 120/64 94 Laboratory Results Laboratory Results - last 24 hr 10/21/18 10/21/18 10/22/18 10:11 16:00 07:11 Sodium 144 144 Potassium 2.9 L 2.9 L Chloride 104 101 Carbon Dioxide 31 34 H Anion Gap 10.0 9.0 BUN 108 H 102 H Creatinine 2.25 H 2.05 H Est Cr Clr Drug Dosing 32.8 36.0 Est GFR ( Amer) 31.4 35.2 Est GFR (Non-Af Amer) 27.1 30.3 BUN/Creatinine Ratio 47.9 H 49.8 H Glucose 121 H 107 H Calcium 8.8 9.2 Phosphorus 3.0 D Albumin 2.3 L Ur Random Sodium 27 (1) Chronic CHF Heart failure type: diastolic Qualified Code(s): I50.32 - Chronic diastolic (congestive) heart failure
[2018-10-22] MEDS ORDERED: POTASSIUM CHLORIDE 20 MEQ TABCR PO ONE (10:00)
--- NOTE | 2018-10-22 15:02 | Hospitalist Progress Note ---
Date of Service October 22, 2018 Assessment & Plan (1) Generalized weakness: UTI Klebsiella seen in the urine with the same strain found in the blood Also presented with severe right foot pain with gout flare which is improved Likely had some metabolic encephalopathy and presentation from this infection which has improved however he did have a transient worsening with a SIRS symptoms associated with a renal stone associated hydronephrosis with purulent pyelonephritis status post cystoscopy on 10/19 PT/OT consults placed, pt is planning on Rehab at the time of discharge (2) Gram-negative bacteremia: Blood as well as urine culture growing Klebsiella oxytoca previously he has had Klebsiella oxytoca growing in his urine culture from 07/2018- urological intervention for right hydronephrosis with urgent surgical corre ction and purulent drainage above the stone consistent with an upper urinary tract infection or pyelonephritis. Patient is markedly improved since that time despite continuing hematuria Patient sevenths activities patient be changed to Rocephin 2 g IV daily although Zosyn will have ID opinion to determine duration of treatment and if retained renal stones need to be addressed (3) UTI (urinary tract infection): Renal ultrasound did not show pyelonephritis however CAT scan did and cystoscopy confirmed the presence of this May need to consider a longer duration of antibiotic therapy will involve infectious disease once patient recovers somewhat more Does have a history of prostate cancer that is being observed at this time urology will follow up as out pt to consider means to address stone in a more formal way (4) Acute on chronic kidney failure: With significantly elevated BUN and creatinine nephrology feels this to be prerenal likely due to infection and poor p.o. intake with dehydration in the setting of continued diuretic use Renal ultrasound without evidence of obstruction CT scan showed hydro-on the right which was relieved Patient was given a dose of Lasix 40 on 10/18 Lasix is dosed on a daily basis decided by his clinical presentation and laboratory values, continuing to hold metolazone, and spironolactone due to acute kidney injury Intravenous fluids were re-begun on the evening of 10/19, potassium is added in the morning of 10/20 due to hypokalemia IVF stopped and diuretics resume 10/21 Patient's creatinine is come down BUN remains elevated nephrology is recommending achieving a slight negative balance with eyes and nose (5) 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: Resolved -Continue allopurinol 100 mg daily (6) Atrial fibrillation: Chronic. Remains rate controlled with bradycardia after admission likely secondary to atenolol use in the setting of ARJUN as atenolol is renally excreted -Continue hold atenolol -Currently will hold Xarelto given hematuria (7) Chronic CHF: Chronic diastolic CHF-currently stable. Clinically patient appeared volume overloaded with JVD and some respiratory distress associate with crackles on auscultation the patient was given Lasix as mentioned above 40 mg in the evening of 10/18, 80 mg in the morning of 10/19 none the morning of 10/20, lasix dosed on 10/22 (8) Leukocytosis: Likely secondary to infection (9) Elevated troponin: Mildly elevated troponin 0.075/0 0.087/0.053 which is likely secondary to myocardial demand ischemia in the setting of acute illness He has no ischemic changes on his ECG No further chest pain or other symptoms (10) Hyponatremia: improved with renal oversight (11) Hyperkalemia: resolved after kayexalate (12) Lumbar stenosis with neurogenic claudication: Long-standing issue with history of back surgery, level of discomfort is at baseline (13) Ambulatory dysfunction: Secondary to generalized weakness from acute illness in the setting of chronic lower back pain issues PT/OT consultations ordered (14) Prostate cancer: Diagnosed in 2017 and follows with urology, Dr. 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 Was recommended to have follow-up imaging in 1 year-I do not see evidence of this -Needs follow-up imaging routinely as an outpatient (18) DVT prophylaxis: Currently we will hold Xarelto begin SCDs Disposition-remain hospitalized PT/OT consults placed He lives at [facility] independently, but could go to the [facility] portion if needed after discharge Subjective Patient feels much better today is less abdominal pain he still has a mild cough he is got some blood-tinged sputum and still pink urine but overall generally he is improving Review of Systems Review of Systems: ROS: well nourished she feels weak and fatigued is looking forward to rehab No double vision blurry vision No problems with speech or swallowing No palpitations, chest pain or pressure No Wheezing has frequent problems clearing his throat minor dyspnea at rest No abdominal pain nausea vomiting diarrhea, pain is resolved No burning urine still with blood-tinged urine his Lr catheter bag No focal joint pain or muscle pain No skin rashes or oral lesions No focused back pain or numbness or loss of strength No changes in memory or confusion Physical Exam Physical Exam: The patient appeared well nourished and normally developed. Vital signs as documented. Head exam is unremarkable. normocephalic, atraumatic Neck is without jugular venous distension, thyromegaly, or lymphademopathy Lungs are decreased at the bases but clear with repeat inspiration Cardiac exam reveals Rhythm is regular. Abdominal exam reveals normal bowel sounds, no masses, no organomegaly Extremities are mildly edematous and both pedal pulses are present Neurologic exam is A&Ox3, no focal deficits, strength is equal bilateral Psychologically seems neither anxious or depressed Skin is warm Dry without bruises or lesions Results & Data Vital Signs (Past 12 Hours) Vital Signs Temp Pulse Pulse Resp BP BP Pulse Ox 10/22/18 11:06 37.2 C 69 22 156/66 H 94 10/22/18 06:57 36.8 C 73 18 135/71 94 10/22/18 06:21 60 10/22/18 04:01 36.6 C 78 18 134/55 L 91 (1) Chronic CHF Heart failure type: diastolic Qualified Code(s): I50.32 - Chronic diastolic (congestive) heart failure
[2018-10-22] MEDS: cefTRIAXone SODIUM 2,000 MG in DEXTROSE 5% 50 ML IV SCH (17:00)
[2018-10-23] MEDS ORDERED: NITROGLYCERIN SL 0.4 MG/TAB TAB ONE (02:01)
[2018-10-23] MEDS: HYDROCORTISONE SOD 50 MG in SYRINGE 0 ML IV SCH ×3 (05:29→21:25)
[2018-10-23 07:32] LABS: BUN Creatinine Ratio 61.4 (10-20); Calcium 8.7 mg/dl (8.5-10.1); Creatinine Clr Calc Pharmacy 48.6 ml/min; Est GFR (African American) 50.9; Est GFR (Non-African American) 43.9; Magnesium 2.4 mg/dl (1.8-2.4); Potassium 2.8 mmol/L (3.5-5.1)
[2018-10-23] MEDS ORDERED: POTASSIUM CHLORIDE 20 MEQ TABCR PO ONE (07:55)
[2018-10-23] MEDS ORDERED: POTASSIUM CHLORIDE 10 MEQ / 100ML WTR IV STA (07:55)
[2018-10-23] MEDS: POLYETHYLENE (MIRALAX) 17 GM PACK PO SCH (08:29)
[2018-10-23] MEDS: POTASSIUM CHLORIDE / WTR 10 MEQ/100 ML PLCT IV SCH ×3 (09:42→11:51)
--- NOTE | 2018-10-23 11:30 | Nephrology Progress Note ---
Date of Service October 23, 2018 Assessment & Plan (1) Acute on chronic kidney failure: -- Clinically consistent with pre-renal physiology and ATN -- renal function improved and now stable at his baseline --agree with continuing to supplement with p.o. and IV potassium -- Provide furosemide as needed to encourage slightly negative fluid balance -- Strict I/O's -- Medications are appropriately dosed for kidney function -- No current indication for dialysis Will sign off. Patient can follow with Dr. Llamas as scheduled (2) Gram-negative bacteremia: -- Klebsiella in urine and blood -- POD # 3 s/p cystoscopy and stent placement for hydronephrosis with purulent pyelonephritis due to obstructing kidney stone (3) UTI (urinary tract infection): -- POD #1 s/p ureteral stent placement (4) Atrial fibrillation: -- Anticoagulated with Xarelto (5) Chronic CHF: -- Additional furosemide as needed to encourage negative fluid balance (6) Pulmonary hypertension: -- RVSP 50-60 -- Avoid Subjective Bravo was seen and examined in his room this morning. He is feeling overall slightly better. Appetite improved however does not like hospital food. Renal function staying stable, has decent urine output. Potassium remained low curr ently getting replaced via oral and IV. Review of Systems Constitutional: + fatigue and + weakness; no fever and no chills Integumentary: as per Subjective / HPI; no problem reported Neurologic: as per Subjective / HPI Physical Exam Physical Exam: GENERAL: elderly male, AAA x 3, not in any distress. NECK: Supple, no JVD. RESPIRATORY: clear to auscultation bilaterally, no wheezes or rales. CARDIOVASCULAR: S1, S2 normal, rate rhythm regular. EXTREMITY: No lower extremity edema NEURO: speech fluent. PSYCHIATRY: Normal mood and judgment Results & Data Vital Signs (Past 12 Hours) Vital Signs Temp Pulse Pulse Resp BP Pulse Ox 10/23/18 08:06 36.5 C 74 20 170/79 H 93 10/23/18 06:19 66 10/23/18 03:29 37.4 C 63 16 139/78 95 10/22/18 23:43 36.6 C 61 16 156/74 H 94 (1) Chronic CHF Heart failure type: diastolic Qualified Code(s): I50.32 - Chronic diastolic (congestive) heart failure
[2018-10-23] MEDS ORDERED: ATENOLOL 25 MG TABLET PO ONE (12:32)
--- NOTE | 2018-10-23 12:40 | Hospitalist Progress Note ---
Date of Service October 23, 2018 Assessment & Plan (1) Generalized weakness: UTI Klebsiella seen in the urine with the same strain found in the blood Also presented with severe right foot pain with gout flare which is improved Likely had some metabolic encephalopathy and presentation from this infection which has improved however he did have a transient worsening with a SIRS symptoms associated with a renal stone associated hydronephrosis with purulent pyelonephritis status post cystoscopy on 10/19 PT/OT consults placed, pt is planning on Rehab at the time of discharge Despite having some dark bowel movements in some tachycardia the patient improves on a daily basis (2) Gram-negative bacteremia: Blood as well as urine culture growing Klebsiella oxytoca previously he has had Klebsiella oxytoca growing in his urine culture from 07/2018- urological intervention for right hydronephrosis with urgent surgical correction and purulent drainage above the stone consistent with an upper urinary tract infection or pyelonephritis. Patient is markedly improved since that time despite continuing hematuria Patient sevenths activities patient be changed to Rocephin 2 g IV daily (3) UTI (urinary tract infection): Renal ultrasound did not show pyelonephritis however CAT scan did and cystoscopy confirmed the presence of this May need to consider a longer duration of antibiotic therapy will involve infectious disease once patient recovers somewhat more Does have a history of prostate cancer that is being observed at this time urology will follow up as out pt to consider means to address stone in a more formal way (4) Acute on chronic kidney failure: With significantly elevated BUN and creatinine nephrology feels this to be prerenal likely due to infection and poor p.o. intake with dehydration in the setting of continued diuretic use Renal ultrasound without evidence of obstruction CT scan showed hydro-on the right which was relieved Patient was given a dose of Lasix 40 on 10/18 Lasix is dosed on a daily basis decided by his clinical presentation and laboratory values, continuing to hold metolazone, and spironolactone due to acute kidney injury Intravenous fluids were re-begun on the evening of 10/19, potassium is added in the morning of 10/20 due to hypokalemia IVF stopped and diuretics resume 10/21 Patient's creatinine is come down BUN remains elevated nephrology is recommending achieving a slight negative balance with the dog bowel movement now this might be some current concern the patient could have some gastritis. A hemoglobin is checked and a proton pump inhibitor is added (5) 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: Remains resolved -Continue allopurinol 100 mg daily (6) Atrial fibrillation: Chronic. Remains rate controlled with bradycardia after admission likely secondary to atenolol use in the setting of ARJUN as atenolol is renally excreted We will restart atenolol given some mild tachycardia magnesium is replete -Currently will hold Xarelto given hematuria and now dark bowel movement (7) Chronic CHF: Chronic diastolic CHF-currently stable. Clinically patient appeared volume overloaded with JVD and some respiratory distress associate with crackles on auscultation the patient was given Lasix as mentioned above 40 mg in the evening of 10/18, 80 mg in the morning of 10/19 none the morning of 10/20, lasix dosed on 10/22 we will start daily dosing on (8) Leukocytosis: Likely secondary to infection (9) Elevated troponin: Mildly elevated troponin 0.075/0 0.087/0.053 which is likely secondary to myocardial demand ischemia in the setting of acute illness He has no ischemic changes on his ECG No further chest pain or other symptoms (10) Hyponatremia: improved with renal oversight (11) Hyperkalemia: resolved after kayexalate (12) Lumbar stenosis with neurogenic claudication: Long-standing issue with history of back surgery, level of discomfort is at baseline no new symptoms (13) Ambulatory dysfunction: Secondary to generalized weakness from acute illness in the setting of chronic lower back pain issues PT/OT consultations ordered (14) Prostate cancer: Diagnosed in 2017 and follows with urology, Dr. 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 Was recommended to have follow-up imaging in 1 year-I do not see evidence of this -Needs follow-up imaging routinely as an outpatient (18) DVT prophylaxis: Currently we will hold Xarelto begin SCDs Disposition-remain hospitalized PT/OT consults placed He lives at [facility] independently, but [facility] go [facility] if needed after discharge Subjective Patient's in no particular distress this morning he does have some increasing ta chycardia and definitely has some arrhythmia with exertion. We have previously held his atenolol we will reinstitute this today. His magnesium this morning was replete. He did have a dark bowel movement which could explain his elevation of his BUN hemoglobin to be checked in the afternoon and Hemoccult is pending he is not on any antiacid medications we will add Protonix twice daily Review of Systems Review of Systems: ROS: well nourished well developed. No significant distress No double vision blurry vision No problems with speech or swallowing No palpitations, chest pain or pressure is not aware of his tachycardia No Wheezing or breathing issues No abdominal pain nausea vomiting diarrhea did have a black bowel movement No burning urine urine frequency or changes in color No focal joint pain or muscle pain No skin rashes or oral lesions No unusual bruising or bleeding No focused back pain or numbness or loss of strength No changes in memory or confusion Physical Exam Physical Exam: The patient appeared well nourished and normally developed. Vital signs as documented. Has episodes of some tachycardia Head exam is unremarkable. normocephalic, atraumatic Neck is without jugular venous distension, thyromegaly, or lymphademopathy Lungs are clear to auscultation and percussion. Cardiac exam reveals irregular rhythm at times Abdominal exam reveals normal bowel sounds, no masses, no organomegaly Extremities are mildly edematous and both pedal pulses are present Neurologic exam is A&Ox3, no focal deficits, strength is equal bilateral Psychologically seems neither anxious or depressed Skin is warm Dry without bruises or lesions Results & Data Vital Signs (Past 12 Hours) Vital Signs Temp Pulse Pulse Resp BP BP Pulse Ox 10/23/18 11:48 36.6 C 82 20 170/88 H 97 10/23/18 08:06 36.5 C 74 20 170/79 H 93 10/23/18 06:19 66 10/23/18 03:29 37.4 C 63 16 139/78 95 (1) Chronic CHF Heart failure type: diastolic Qualified Code(s): I50.32 - Chronic diastolic (congestive) heart failure
[2018-10-23] MEDS ORDERED: FUROSEMIDE 40 MG TAB PO ONE (12:41)
[2018-10-23] MEDS: cefTRIAXone SODIUM 2,000 MG in DEXTROSE 5% 50 ML IV SCH (15:57)
[2018-10-23] MEDS: PANTOprazole 40 MG TAB PO SCH (21:25)
[2018-10-24] MEDS: HYDROCORTISONE SOD 50 MG in SYRINGE 0 ML IV SCH ×3 (04:57→20:40)
[2018-10-24 06:30] LABS: BUN Creatinine Ratio 58.6 (10-20); Calcium 8.1 mg/dl (8.5-10.1); Creatinine Clr Calc Pharmacy 55.6 ml/min; Est GFR (African American) 59.9; Est GFR (Non-African American) 51.7; Magnesium 2.1 mg/dl (1.8-2.4); Potassium 2.8 mmol/L (3.5-5.1)
[2018-10-24] MEDS: ATENOLOL 25 MG TABLET PO SCH (07:21)
[2018-10-24] MEDS: PANTOprazole 40 MG TAB PO SCH ×2 (07:21→20:37)
[2018-10-24] MEDS: POLYETHYLENE (MIRALAX) 17 GM PACK PO SCH (07:21)
[2018-10-24] MEDS: POTASSIUM CHLORIDE 20 MEQ TABCR PO SCH ×3 (08:55→20:37)
--- NOTE | 2018-10-24 14:31 | Hospitalist Progress Note ---
Date of Service October 24, 2018 Assessment & Plan (1) Generalized weakness: UTI Klebsiella seen in the urine with the same strain found in the blood Also presented with severe right foot pain with gout flare which is improved Likely had some metabolic encephalopathy and presentation from this infection which has improved however he did have a transient worsening with a SIRS symptoms associated with a renal stone associated hydronephrosis with purulent pyelonephritis status post cystoscopy on 10/19 PT/OT consults placed, pt is planning on Rehab at the time of discharge Despite having some dark bowel movements in some tachycardia the patient improves on a daily basis (2) Gram-negative bacteremia: Blood as well as urine culture growing Klebsiella oxytoca previously he has had Klebsiella oxytoca growing in his urine culture from 07/2018- urological intervention for right hydronephrosis with urgent surgical correction and purulent drainage above the stone consistent with an upper urinary tract infection or pyelonephritis. Patient is markedly improved since that time despite continuing hematuria Patient sevenths activities patient be changed to Rocephin 2 g IV daily, likely need a minimum of 2 weeks of therapy may consider an ultrasound-guided peripheral IV (3) UTI (urinary tract infection): Initially renal ultrasound did not show pyelonephritis however CAT scan did and cystoscopy confirmed the presence of this May need to consider a longer duration of antibiotic therapy will involve infectious disease follow-up as an outpatient within 2 weeks to determine duration of therapy Does have a history of prostate cancer that is being observed at this time urology will follow up as out pt to consider means to address stone in a more formal way and also to address his stent was placed (4) Acute on chronic kidney failure: With significantly elevated BUN and creatinine nephrology feels this to be prerenal likely due to infection and poor p.o. intake with dehydration in the setting of continued diuretic use Renal ultrasound without evidence of obstruction CT scan showed hydro-on the right which was relieved Patient said intermittent Lasix and fluid throughout his whole hospital stay currently he is off Lasix, and nephrology is recommending achieving a slight negative balance Dark bowel movement, concern the patient could have some gastritis. A hemoglobin is stable and a proton pump inhibitor is added thoughts that this could account for the elevation of his BUN (5) 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: Remains resolved -Continue allopurinol 100 mg daily (6) Atrial fibrillation: Chronic. Remains rate controlled with bradycardia after admission likely secondary to atenolol use in the setting of ARJUN as atenolol is renally excreted Did restart atenolol 10/23 given some mild tachycardia magnesium is replete -Currently holding Xarelto hematuria is resolved with dark bowel movement is concerning. If hemoglobin remains stable on 10/25 consider restarting Xarelto for atrial fibrillation (7) Chronic CHF: Chronic diastolic CHF-currently stable. Clinically patient appeared volume overloaded with JVD and some respiratory distress associate with crackles on auscultation the patient was given Lasix as mentioned above 40 mg in the evening of 10/18, 80 mg in the morning of 10/19 none the morning of 10/20, lasix dosed on 10/22 furosemide at this time, however potassium is significantly low it is not substantial or supplementation (8) Leukocytosis: Likely secondary to infection (9) Elevated troponin: Mildly elevated troponin 0.075/0 0.087/0.053 which is likely secondary to myocardial demand ischemia in the setting of acute illness He has no ischemic changes on his ECG No further chest pain or other symptoms (10) Hyponatremia: improved with renal oversight (11) Hyperkalemia: resolved after kayexalate (12) Lumbar stenosis with neurogenic claudication: Long-standing issue with history of back surgery, level of discomfort is at baseline no new symptoms (13) Ambulatory dysfunction: Secondary to generalized weakness from acute illness in the setting of chronic lower back pain issues PT/OT consultations ordered (14) Prostate cancer: Diagnosed in 2017 and follows with urology, Dr. 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 Was recommended to have follow-up imaging in 1 year-I do not see evidence of this -Needs follow-up imaging routinely as an outpatient (18) DVT prophylaxis: Currently we are holding Xarelto begin SCDs Disposition-remain hospitalized PT/OT consults placed He lives at [facility] independently, but could go to the [facility] portion if needed after discharge Subjective Patient feels much better today his renal function is drastically improving. Given the fact that he has recurrence of his urinary infection and retained stone and instrumentation with the stent he will likely need a minimum 2 weeks of intravenous antibiotics. We could consider having an ultrasound placed peripheral IV and follow-up with infectious disease Review of Systems Review of Systems: ROS: well nourished well developed. No double vision blurry vision No problems with speech or swallowing No palpitations, chest pain or pressure No Wheezing or breathing issues No abdominal pain nausea vomiting diarrhea changes in appetite or weight No burning urine urine frequency or changes in color No focal joint pain or muscle pain No skin rashes or oral lesions No unusual bruising or bleeding No focused back pain or numbness or loss of strength No changes in memory or confusion Physical Exam Physical Exam: The patient appeared well nourished and normally developed. Vital signs as documented. Head exam is unremarkable. normocephalic, atraumatic Neck is with no visible jugular venous distension, thyromegaly, or lymphademopathy Lungs are clear decreased at the bases with some rales Cardiac exam reveals irregular but rate controlled Abdominal exam reveals normal bowel sounds, no masses, no organomegaly minor right-sided tenderness Extremities are mildly edematous and both pedal pulses are present Neurologic exam is A&Ox3, no focal deficits, strength is equal bilateral Psychologically seems neither anxious or depressed Skin is warm Dry Results & Data Vital Signs (Past 12 Hours) Vital Signs Temp Pulse Resp BP BP Pulse Ox 10/24/18 11:08 36.5 C 57 L 18 154/74 H 98 10/24/18 07:12 36.5 C 60 18 170/83 H 99 10/24/18 03:26 36.8 C 65 18 106/59 L 96 (1) Chronic CHF Heart failure type: diastolic Qualified Code(s): I50.32 - Chronic diastolic (congestive) heart failure
[2018-10-24] MEDS: cefTRIAXone SODIUM 2,000 MG in DEXTROSE 5% 50 ML IV SCH (16:16)
[2018-10-25] MEDS: HYDROCORTISONE SOD 50 MG in SYRINGE 0 ML IV SCH (05:33)
[2018-10-25 07:38] LABS: BUN Creatinine Ratio 52.8 (10-20); Calcium 8.4 mg/dl (8.5-10.1); Creatinine Clr Calc Pharmacy 59.1 ml/min; Est GFR (Non-African American) 55.2; Magnesium 2.1 mg/dl (1.8-2.4); Potassium 3.9 mmol/L (3.5-5.1)
[2018-10-25] MEDS: POLYETHYLENE (MIRALAX) 17 GM PACK PO SCH (08:50)
[2018-10-25] MEDS: ATENOLOL 25 MG TABLET PO SCH (08:50)
[2018-10-25] MEDS: PANTOprazole 40 MG TAB PO SCH ×2 (08:51→20:47)
[2018-10-25] MEDS: POTASSIUM CHLORIDE 20 MEQ TABCR PO SCH ×2 (09:00→20:47)
[2018-10-25 09:05] LABS: Hematocrit (blood only) 39.1 % (42-52); Hemoglobin 13.1 g/dL (14.0-18.0); Mean Corpuscular Hgb Conc 33.5 g/dL (32-36); Mean Corpuscular Volume 101.3 fL (80-100); Mean Platelet Volume 11.9 fL (7.4-10.4); Platelet Count 155 K/uL (130-400); RDW Coefficient of Variation 15.4 % (11.5-14.5); RDW Standard Deviation 57.1 fL (36.4-46.3); Red Blood Count 3.86 M/uL (4.7-6.1); White Blood Count 15.03 K/uL (4.8-10.8)
[2018-10-25 09:34] LABS: Basophils # (auto) 0.05 K/uL (0-0.2); Basophils % (auto) 0.3 %; Eosinophils # (auto) 0.14 K/uL (0-0.5); Eosinophils % (auto) 0.9 %; Immature Granulocytes # (auto) 0.83 K/uL (0.00-0.02); Immature Granulocytes % (auto) 5.5 %; Lymphocytes # (auto) 0.92 K/uL (1.2-3.4); Lymphocytes % (auto) 6.1 %; Monocytes # (auto) 0.92 K/uL (0.11-0.59); Monocytes % (auto) 6.1 %; Neutrophils # (auto) 12.17 K/uL (1.4-6.5); Neutrophils % (auto) 81.1 %
--- NOTE | 2018-10-25 11:26 | Hospitalist Progress Note ---
Date of Service October 25, 2018 Assessment & Plan (1) Generalized weakness: UTI Klebsiella seen in the urine with the same strain found in the blood Also presented with severe right foot pain with gout flare which is improved but still remains Likely had some metabolic encephalopathy and presentation from this infection which has improved however he did have a transient worsening with a SIRS symptoms associated with a renal stone associated hydronephrosis with purulent pyelonephritis status post cystoscopy on 10/19 PT/OT consults placed, pt is planning on Rehab at the time of discharge (2) Gram-negative bacteremia: Blood as well as urine culture growing Klebsiella oxytoca. Previously he had Klebsiella oxytoca growing in his urine culture from 07/2018 He presented with generalized weakness and a UTI also with the same organism- Klebsiella With large kidney stone on the right at 1 cm and then developed right hydronephrosis with urinary obstruction and found to have right ureterolithiasis which required urgent intervention by urology with stent placement -Appreciate urological management of upper urinary tract infection or pyelonephritis secondary to ureterolithiasis -Patient is markedly improved since that time -Lr catheter is now removed and he is voiding on his own, no hematuria noted -Was on Rocephin 2 g daily-with development of diffuse rash today, may be drug eruption versus contact dermatitis -Nonetheless, will discontinue Rocephin and consult infectious disease to see about choice of antibiotic-appreciate consultation -ID started imipenem and recommends 14 days from the time of last negative blood culture -Repeat blood cultures today He will need a peripherally inserted ultrasound-guided IV which can stand for 4 weeks prior to discharge (3) UTI (urinary tract infection): Initially renal ultrasound did not show pyelonephritis however CAT scan did and cystoscopy confirmed the presence of this -Treatment as above -Urology will follow up as out pt to consider means to address stone in a more formal way and also to address his stent which was placed this admission (4) Acute on chronic kidney failure: With significantly elevated BUN and creatinine nephrology feels this to be prerenal likely due to infection and poor p.o. intake with dehydration in the setting of continued diuretic use Renal ultrasound without evidence of obstruction initially A repeat CT scan later on then showed hydro-on the right which was relieved with stent placement Creatinine peaked in the twos and is now down to 1.25 today -He has received intermittent Lasix alternating with IV fluid throughout his whole hospital stay -Nephrology is recommending achieving a slight negative balance Fluid status and weight seem even from previous Dark bowel movement, concern the patient could have some gastritis. A hemoglobin is stable and a proton pump inhibitor is added thoughts that this could account for the elevation of his BUN -Will gently restart home Lasix but only at 40 mg once daily and follow BMP -Appreciate nephrology consultation-they have signed off -Avoid nephrotoxins -Renally dose all medications -Continue to hold off on home metolazone and spironolactone (5) 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: Remains persistent somewhat in the right foot at this time with tenderness -Continue allopurinol 100 mg daily -Convert IV hydrocortisone to prednisone and finish out taper (6) Atrial fibrillation: Chronic. Remains rate controlled with bradycardia after admission likely secondary to atenolol use in the setting of ARJUN as atenolol is renally excreted Did restart atenolol 10/23 given some mild tachycardia - Xarelto was on hold for hematuria which is now resolved; also had dark bowel movement is concerning-stool I witnessed today on examination is not dark and hemoglobin remains perfectly stable from several days ago -Restart Xarelto today (7) Chronic CHF: Chronic diastolic CHF-currently stable. Clinically patient appeared volume overloaded with JVD and some respiratory distress associate with crackles on auscultation the patient was given Lasix as mentioned above 40 mg in the evening of 10/18, 80 mg in the morning of 10/19 none the morning of 10/20, lasix dosed on 10/22 furosemide at this time -Restarting Lasix 40 mill grams daily as above -Follow volume status (8) Leukocytosis: Likely secondary to infection and steroid use (9) Elevated troponin: Mildly elevated troponin 0.075/0 0.087/0.053 which is likely secondary to myocardial demand ischemia in the setting of acute illness He has no ischemic changes on his ECG No further chest pain or other symptoms (10) Hyponatremia: improved with improving acute kidney injury (11) Hyperkalemia: resolved after kayexalate (12) Lumbar stenosis with neurogenic claudication: Long-standing issue with history of back surgery, level of discomfort is at baseline no new symptoms (13) Ambulatory dysfunction: Secondary to generalized weakness from acute illness in the setting of chronic lower back pain issues PT/OT consultations appreciated -He will need rehab placement (14) Prostate cancer: Diagnosed in 2017 and follows with urology, Dr. 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 Was recommended to have follow-up imaging in 1 year-I do not see evidence of this -Needs follow-up imaging routinely as an outpatient (18) DVT prophylaxis: Restarting Xarelto Disposition-remain hospitalized on PCU PT/OT consults placed He lives at [facility] independently, but could go to the assisted portion if needed after discharge-they do not have a bed until the end of this week Referral was made to [facility] as well May be stable for discharge in the next 2 days if repeat blood cultures remain negative and renal function stable Subjective Patient feeling better today. He is worried about leaving the hospital just yet. He and his question if his infection is resolved. They are concerned that he claims he has not been based except for one time the whole admission. I confirmed with AIDS that he is bathed daily. He denies hematuria. His stools remain dark but no blood. His hemoglobin remained stable. Telemetry with atrial fibrillation with rates in the 60s to 70s is also requesting infectious disease consultation After I noted a rash on his arms and legs, he does note that he has been itchy and neither the nurse nor the have noticed this rash before today. Review of Systems Review of Systems: All systems reviewed & are unremarkable except as noted in HPI & below Physical Exam Constitutional: WD/WN, vitals as above + obese Eyes: PERRL, conjunctivae normal, anicteric sclerae ENMT: external ear and nose normal, oropharynx normal Neck: trachea midline, no thyromegaly Respiratory: normal respiratory effort Auscultation: + diminished lung sounds (At the bases); no crackles, no rhonchi and no wheezes Cardiovascular: Rate/Rhythm: regular rate and + irregularly irregular Heart Sounds: no murmur Extremities: + edema (trace pitting edema legs bilaterally) Gastrointestinal (Abdomen): normal bowel sounds, soft, nontender, no hepatosplenomegaly Musculoskeletal: Extremities: extremities normal to inspection (With some tenderness to palpation over the right dorsal foot, no erythema or edema or effusion); no cyanosis and no clubbing Skin: + rash (Chronic venous stasis changes with hemosiderin deposits on legs bilaterally; also with diffuse erythematous macular rash with some circular satellite lesions on medial thighs and upper extremities bilaterally) Neurologic: moves all extremities and awake; no focal motor deficits Psychiatric: A+Ox3, euthymic affect Genitourinary: no penis abnormality and no scrotum abnormality Results & Data Vital Signs (Past 12 Hours) Vital Signs Temp Pulse Resp BP BP Pulse Ox 10/25/18 07:28 36.5 C 65 20 166/75 H 98 10/25/18 03:42 36.4 C L 56 L 17 130/63 98 10/25/18 00:22 36.4 C L 59 L 18 99/41 L 95 Laboratory Results Sodium 143, potassium 3.9, chloride 108, bicarb 32, BUN 66, creatinine 1.25, glucose 103 WBC 15, hemoglobin stable at 13.1, platelets improved at 155 Hemoccult positive stool noted Most recent blood cultures from 10/19 remain positive 2 out of 2 sets with Klebs iella oxytoca (1) Chronic CHF Heart failure type: diastolic Qualified Code(s): I50.32 - Chronic diastolic (congestive) heart failure
--- NOTE | 2018-10-25 11:52 | Infectious Disease Consult ---
Date of Consultation October 25, 2018 Assessment & Plan (1) Gram negative sepsis: will repeat blood cultures. unclear if rash due to abx or contact dermatitis. will change to ertapenem and observe. will need 14 days from first negative blood culture. if he does not tolerate ertapenem, levaquin would be alternative. (2) UTI (urinary tract infection): History of Present Illness Attending Physician: Corinne Cerrato MD pt admitted with right foot pain, gout suspected. was also found to have wbc 20. UA >30 wbc, +4 bacteria, blood and urine cultures from 10/16 grew K. oxytoca, resistant to ancef, I to amp/sulbactam. repeat blood cultures on 10/17 grew the same, no repeats done. Had ct abd pain showing right hydro, 6mm obstructing stone, 21mm right renal pelvis stone, went to OR on 10/19 for stent placement. afebrile. wbc decreased to 15. creat initially 2.7, now 1.2. was on ctx but developed rash on inner thighs today, not itchy, ID consulted for abx recs and duration. pt states he is feeling much better overall. denies abd pain, no n/v/d. no cp, sob, cough. at bedside. Echo negative for veg. Allergies Allergy/AdvReac Type Severity Reaction Status Date / Time No Known Allergies Allergy Verified 10/19/18 16:07 Home Medications Home Medications Medication Instructions Recorded Confirmed Type acetaminophen [Tylenol] 0 mg PO Q6H PRN 10/16/18 10/16/18 History allopurinol 200 mg PO QDL 10/16/18 10/16/18 History ascorbate calcium-bioflavonoid 1 tab PO QDD 10/16/18 10/16/18 History [Shante-C with Bioflavonoids] atenolol 25 mg PO QAM 10/16/18 10/16/18 History calcium carbonate [Calcium 600] 1,200 mg PO QDL 10/16/18 10/16/18 History cholecalciferol (vitamin D3) 2,000 unit PO QDD 10/16/18 10/16/18 History [Vitamin D3] docusate sodium [Colace] 100 mg PO UD 10/16/18 10/16/18 History furosemide 40 mg PO BID17 10/16/18 10/16/18 History methylprednisolone 4 mg PO UD 10/16/18 10/16/18 History metolazone 2.5 mg PO 3XWK 10/16/18 10/16/18 History horcmihl-mqm-HU-lycopen-lutein 1 tab PO QAM 10/16/18 10/16/18 History [Centrum Silver] polyethylene glycol 3350 [Miralax] 17 g PO QAM 10/16/18 10/16/18 History potassium chloride 10 meq PO QDL 10/16/18 10/16/18 History potassium chloride 20 meq PO BIDM 10/16/18 10/16/18 History rivaroxaban [Xarelto] 15 mg PO QDD 10/16/18 10/16/18 History spironolactone 25 mg PO BIDM 10/16/18 10/16/18 History tamsulosin 0.4 mg PO QDD 10/16/18 10/16/18 History Patient History Medical History DVT prophylaxis Leukocytosis (Acute) Chronic CHF (Chronic) 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 (Acute) Acute on chronic kidney failure (Acute) Obesity (BMI 30-39.9) Right foot infection (Acute) Ambulatory dysfunction (Acute) Leukocytosis (Acute) ARJUN (acute kidney injury) (Acute) Elevated troponin (Acute) Lumbar stenosis with neurogenic claudication (Acute 09/06/13) Spondylosis of lumbar joint (Acute 09/06/13) Atrial fibrillation (Chronic 09/06/13) Cor pulmonale, chronic (Acute 09/06/13) Lumbar stenosis with neurogenic claudication Spondylosis of lumbar joint Family History Mother Kidney disease Social History Preferred Language: [place] Communication Ability: Effective News Commentator Required: No Beliefs That Will Affect Care: None Current Living Situation: Spouse Current Living Situation Comment: [facility]. Other Information That Helps Us Care for You: No Feels Safe at Home: Yes Safety Concerns: Feels Safe At This Time Smoking Status: Never smoker Hx Alcohol Use: Yes Alcohol type: beer Hx Substance Use: No Review of Systems Review of Systems: All systems reviewed & are unremarkable except as noted in HPI & below Physical Exam Constitutional: WD/WN, vitals as above Eyes: PERRL, conjunctivae normal, anicteric sclerae ENMT: external ear and nose normal, oropharynx normal Neck: normal visual inspection Respiratory: normal respiratory effort, lungs clear to auscultation Cardiovascular: RRR, no murmur, no edema Gastrointestinal (Abdomen): normal bowel sounds, soft, nontender, no hepatosplenomegaly Musculoskeletal: no cyanosis or clubbing, extremities motor strength 5/5 Skin: no rashes, warm and dry + rash (scatted rash inner thighs r>l not raised, no warmth) chronic discoloration b/l le Psychiatric: A+Ox3, euthymic affect Results & Data Vital Signs (Past 12 Hours) Vital Signs Temp Pulse Resp BP BP Pulse Ox 10/25/18 07:28 36.5 C 65 20 166/75 H 98 10/25/18 03:42 36.4 C L 56 L 17 130/63 98 10/25/18 00:22 36.4 C L 59 L 18 99/41 L 95 Laboratory Results Microbiology 10/19/18 Unknown Urine,Kidney Gram Stain - Final 10/19/18 Unknown Urine,Kidney Aerobic and Anaerobic Culture - Final Klebsiella oxytoca 10/17/18 09:24 Blood Aerobic Blood Culture - Final Klebsiella oxytoca 10/17/18 09:24 Blood Anaerobic Blood Culture - Final 10/17/18 09:23 Blood Aerobic Blood Culture - Final Klebsiella oxytoca 10/17/18 09:23 Blood Anaerobic Blood Culture - Final Klebsiella oxytoca 10/16/18 18:09 Blood Aerobic Blood Culture - Final Klebsiella oxytoca 10/16/18 18:09 Blood Anaerobic Blood Culture - Final Klebsiella oxytoca 10/16/18 17:59 Blood Aerobic Blood Culture - Final Klebsiella oxytoca 10/16/18 17:59 Blood Anaerobic Blood Culture - Final Klebsiella oxytoca 10/16/18 19:24 Urine,Clean Catch Urine Culture - Final Klebsiella oxytoca
[2018-10-25] MEDS: predniSONE 20 MG TAB PO SCH (12:58)
[2018-10-25] MEDS: ERTAPENEM SODIUM 1,000 MG in SODIUM CHLORIDE 0.9% 50 ML IV SCH (12:58)
[2018-10-25] MEDS: FUROSEMIDE 40 MG TAB PO SCH (12:58)
[2018-10-25] MEDS ORDERED: HYDROCORTISONE SOD 25 MG in SYRINGE 0 ML IV SCH (14:00)
[2018-10-25] MEDS: TAMSULOSIN HCL 0.4 MG CAP PO SCH (16:45)
[2018-10-25] MEDS: RIVAROXABAN 15 MG TAB PO SCH (16:45)
[2018-10-26 06:34] LABS: Hematocrit (blood only) 38.2 % (42-52); Hemoglobin 12.4 g/dL (14.0-18.0); Mean Corpuscular Hgb Conc 32.5 g/dL (32-36); Mean Corpuscular Volume 101.6 fL (80-100); Mean Platelet Volume 10.9 fL (7.4-10.4); Nucleated RBC # (auto) 0.03 K/uL (0-0); Nucleated RBC % (auto) 0.2 %; Platelet Count 158 K/uL (130-400); RDW Coefficient of Variation 15.3 % (11.5-14.5); RDW Standard Deviation 56.6 fL (36.4-46.3); Red Blood Count 3.76 M/uL (4.7-6.1); White Blood Count 14.99 K/uL (4.8-10.8)
[2018-10-26 07:21] LABS: BUN Creatinine Ratio 45.8 (10-20); Calcium 8.2 mg/dl (8.5-10.1); Creatinine Clr Calc Pharmacy 59.6 ml/min; Est GFR (African American) 64.6; Est GFR (Non-African American) 55.7; Potassium 4.7 mmol/L (3.5-5.1)
[2018-10-26] MEDS: POLYETHYLENE (MIRALAX) 17 GM PACK PO SCH (08:51)
[2018-10-26] MEDS: POTASSIUM CHLORIDE 20 MEQ TABCR PO SCH ×2 (08:52→20:22)
[2018-10-26] MEDS: FUROSEMIDE 40 MG TAB PO SCH (08:52)
[2018-10-26] MEDS: PANTOprazole 40 MG TAB PO SCH ×2 (08:53→20:22)
[2018-10-26] MEDS: predniSONE 20 MG TAB PO SCH (08:53)
[2018-10-26] MEDS: ATENOLOL 25 MG TABLET PO SCH (08:53)
[2018-10-26] MEDS: ERTAPENEM SODIUM 1,000 MG in SODIUM CHLORIDE 0.9% 50 ML IV SCH (12:55)
--- NOTE | 2018-10-26 12:58 | Infectious Disease Progress Nt ---
Date of Service October 26, 2018 Assessment & Plan (1) Gram negative sepsis: follow repeat blood cultures. unclear if rash due to abx or contact dermatitis. will change to ertapenem and observe. will need 14 days from first negative blood culture. if he does not tolerate ertapenem, levaquin would be alternative. (2) UTI (urinary tract infection): Subjective tolerating ertapenem, repeat cultures pending. afebrile overnight. wbc 14 Results & Data Vital Signs (Past 12 Hours) Vital Signs Temp Pulse Resp BP BP Pulse Ox 10/26/18 11:34 36.6 C 36 L 20 146/64 H 97 10/26/18 07:28 36.6 C 52 L 18 135/69 96 10/26/18 04:37 36.5 C 74 17 126/68 95 Laboratory Results Microbiology 10/19/18 Unknown Urine,Kidney Gram Stain - Final 10/19/18 Unknown Urine,Kidney Aerobic and Anaerobic Culture - Final Klebsiella oxytoca 10/17/18 09:24 Blood Aerobic Blood Culture - Final Klebsiella oxytoca 10/17/18 09:24 Blood Anaerobic Blood Culture - Final 10/17/18 09:23 Blood Aerobic Blood Culture - Final Klebsiella oxytoca 10/17/18 09:23 Blood Anaerobic Blood Culture - Final Klebsiella oxytoca 10/16/18 18:09 Blood Aerobic Blood Culture - Final Klebsiella oxytoca 10/16/18 18:09 Blood Anaerobic Blood Culture - Final Klebsiella oxytoca 10/16/18 17:59 Blood Aerobic Blood Culture - Final Klebsiella oxytoca 10/16/18 17:59 Blood Anaerobic Blood Culture - Final Klebsiella oxytoca 10/16/18 19:24 Urine,Clean Catch Urine Culture - Final Klebsiella oxytoca
[2018-10-26] MEDS: TAMSULOSIN HCL 0.4 MG CAP PO SCH (17:26)
[2018-10-26] MEDS: RIVAROXABAN 15 MG TAB PO SCH (17:26)
--- NOTE | 2018-10-26 17:42 | Hospitalist Progress Note ---
Date of Service October 26, 2018 Assessment & Plan (1) Generalized weakness: UTI Klebsiella seen in the urine with the same strain found in the blood Also presented with severe right foot pain with gout flare which is improved but still remains Likely had some metabolic encephalopathy and presentation from this infection which has improved however he did have a transient worsening with a SIRS symptoms associated with a renal stone associated hydronephrosis with purulent pyelonephritis status post cystoscopy on 10/19 PT/OT consults placed, pt is planning on Rehab at the time of discharge Improved and OOB to chair all day today (2) Gram-negative bacteremia: Blood as well as urine culture growing Klebsiella oxytoca. Previously he had Klebsiella oxytoca growing in his urine culture from 07/2018 He presented with generalized weakness and a UTI also with the same organism- Klebsiella With large kidney stone on the right at 1 cm and then developed right hydronephrosis with urinary obstruction and found to have right ureterolithiasis with a 6mm stone which required urgent intervention by urology with stent placement -Appreciate urological management of upper urinary tract infection or pyelonephritis secondary to ureterolithiasis -Patient is markedly improved since that time -Lr catheter is now removed and he is voiding on his own, no hematuria noted -Was on Rocephin 2 g daily-with development of diffuse rash today, may be drug eruption versus contact dermatitis-now resolved with stopping Rocephin -ID started imipenem and recommends 14 days from the time of last negative blood culture which is on 10/25 -follow repeat blood cultures He will need a peripherally inserted ultrasound-guided IV which can stay in for 4 weeks prior to discharge (3) UTI (urinary tract infection): Initially renal ultrasound did not show pyelonephritis however CAT scan did and cystoscopy confirmed the presence of this -Treatment as above -Urology will follow up as out pt to consider means to address stone in a more formal way and also to address his stent which was placed this admission (4) Acute on chronic kidney failure: With significantly elevated BUN and creatinine nephrology feels this to be prerenal likely due to infection and poor p.o. intake with dehydration in the setting of continued diuretic use Renal ultrasound without evidence of obstruction initially A repeat CT scan later on then showed hydro-on the right which was relieved with stent placement Creatinine peaked in the twos and is now down to 1.25 today -He has received intermittent Lasix alternating with IV fluid throughout his whole hospital stay -Nephrology is recommending achieving a slight negative balance Fluid status and weight seem even from previous Had some dark bowel movement, concern the patient could have some gastritis. A hemoglobin is stable and a proton pump inhibitor is added thoughts that this could account for the elevation of his BUN -doing ok with restarting Lasix but only at 40 mg once daily and follow BMP -Appreciate nephrology consultation-they have signed off -Avoid nephrotoxins -Renally dose all medications -Continue to hold off on home metolazone and spironolactone (5) 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: Remains persistent somewhat in the right foot at this time with tenderness -Continue allopurinol 100 mg daily -Converted IV hydrocortisone to prednisone on 10/25 and finish out taper (6) Atrial fibrillation: Chronic. Remains rate controlled with bradycardia after admission likely secondary to atenolol use in the setting of ARJUN as atenolol is renally excreted Did restart atenolol 10/23 given some mild tachycardia Now with some bradycardia into the 30s again, asymptomatic -decrease atenolol to 12.5mg daily - Xarelto was on hold for hematuria which is now resolved; also had dark bowel movement is concerning-stool now normal in color and hemoglobin remains perfectly stable from several days ago -Restarted Xarelto on 10/25 and doing well (7) Chronic CHF: Chronic diastolic CHF-currently stable. Clinically patient appeared volume overloaded with JVD and some respiratory distress associate with crackles on auscultation the patient was given Lasix as mentioned above 40 mg in the evening of 10/18, 80 mg in the morning of 10/19 none the morning of 10/20, lasix dosed on 10/22 furosemide at this time -Restarted Lasix 40 mg daily as above and doing well -Follow volume status (8) Leukocytosis: Likely secondary to infection and steroid use (9) Elevated troponin: Mildly elevated troponin 0.075/0 0.087/0.053 which is likely secondary to myocardial demand ischemia in the setting of acute illness He has no ischemic changes on his ECG No further chest pain or other symptoms (10) Hyponatremia: Resolved withresolution of acute kidney injury (11) Hyperkalemia: resolved after kayexalate (12) Lumbar stenosis with neurogenic claudication: Long-standing issue with history of back surgery, level of discomfort is at baseline no new symptoms (13) Ambulatory dysfunction: Secondary to generalized weakness from acute illness in the setting of chronic lower back pain issues PT/OT consultations appreciated -He will need rehab placement (14) Prostate cancer: Diagnosed in 2017 and follows with urology, Dr. 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 Was recommended to have follow-up imaging in 1 year-I do not see evidence of this -Needs follow-up imaging routinely as an outpatient (18) DVT prophylaxis: Xarelto Disposition-remain hospitalized on PCU PT/OT consults placed He lives at [facility] independently, but could go to the [facility] portion if needed after discharge-they do not have a bed until the end of this week Referral was made to [facility] as well-hopeful for bed availability tomorrow Needs PIV US guided placed prior to discharge Subjective Feeling well, no complaints. Rash seems to be gone, no itching Review of Systems Review of Systems: All systems reviewed & are unremarkable except as noted in HPI & below Physical Exam Constitutional: WD/WN, vitals as above + obese Eyes: PERRL, conjunctivae normal, anicteric sclerae ENMT: external ear and nose normal, oropharynx normal Neck: trachea midline, no thyromegaly Respiratory: normal respiratory effort, lungs clear to auscultation normal respiratory effort Cardiovascular: Rate/Rhythm: regular rate and + irregularly irregular Heart Sounds: no murmur Extremities: + edema (trace pitting edema legs bilaterally) Gastrointestinal (Abdomen): normal bowel sounds, soft, nontender, no hepatosplenomegaly Musculoskeletal: Extremities: extremities normal to inspection (With some tenderness to palpation over the right dorsal foot, no erythema or edema or effusion); no cyanosis and no clubbing Skin: no rashes, warm and dry + rash (Chronic venous stasis changes with hemosiderin deposits on legs bilaterally) previous macular erythematous rash on LEs and UEs now resolved Neurologic: moves all extremities and awake; no focal motor deficits Psychiatric: A+Ox3, euthymic affect Results & Data Vital Signs (Past 12 Hours) Vital Signs Temp Pulse Pulse Resp BP BP Pulse Ox 10/26/18 15:34 55 L 10/26/18 11:34 36.6 C 36 L 20 146/64 H 97 10/26/18 08:00 56 L 10/26/18 07:28 36.6 C 52 L 18 135/69 96 Laboratory Results 10/26/18 10/26/18 Range/Units 06:19 06:19 WBC 14.99 H (4.8-10.8) K/uL RBC 3.76 L (4.7-6.1) M/uL Hgb 12.4 L (14.0-18.0) g/dL Hct 38.2 L (42-52) % MCV 101.6 H (80-100) fL MCH 33.0 (25-34) pg MCHC 32.5 (32-36) g/dL RDW Std Deviation 56.6 H (36.4-46.3) fL RDW Coeff of Anthony 15.3 H (11.5-14.5) % Plt Count 158 (130-400) K/uL MPV 10.9 H (7.4-10.4) fL Absolute Nucleated RBC 0.03 H (0-0) K/uL Nucleated RBC % (auto) 0.2 % Sodium 141 (136-145) mmol/L Potassium 4.7 D (3.5-5.1) mmol/L Chloride 106 (98-107) mmol/L Carbon Dioxide 32 (21-32) mmol/L Anion Gap 3.0 (3-11) BUN 57 H (7-18) mg/dl Creatinine 1.24 (0.6-1.4) mg/dl Est Cr Clr Drug Dosing 59.6 ml/min Est GFR ( Amer) 64.6 Est GFR (Non-Af Amer) 55.7 BUN/Creatinine Ratio 45.8 H (10-20) Glucose 97 (70-99) mg/dl Calcium 8.2 L (8.5-10.1) mg/dl Magnesium 2.0 (1.8-2.4) mg/dl BCxs NGTD (1) Chronic CHF Heart failure type: diastolic Qualified Code(s): I50.32 - Chronic diastolic (congestive) heart failure
[2018-10-27 06:28] LABS: Hematocrit (blood only) 37.4 % (42-52); Hemoglobin 12.4 g/dL (14.0-18.0); Mean Corpuscular Hgb Conc 33.2 g/dL (32-36); Mean Corpuscular Volume 101.1 fL (80-100); Mean Platelet Volume 11.5 fL (7.4-10.4); Platelet Count 180 K/uL (130-400); RDW Coefficient of Variation 15.5 % (11.5-14.5); RDW Standard Deviation 56.4 fL (36.4-46.3); White Blood Count 14.76 K/uL (4.8-10.8)
[2018-10-27 06:55] LABS: Basophils # (auto) 0.03 K/uL (0-0.2); Basophils % (auto) 0.2 %; Eosinophils # (auto) 0.12 K/uL (0-0.5); Eosinophils % (auto) 0.8 %; Immature Granulocytes % (auto) 5.4 %; Lymphocytes % (auto) 8.1 %; Monocytes # (auto) 0.77 K/uL (0.11-0.59); Monocytes % (auto) 5.2 %; Neutrophils # (auto) 11.84 K/uL (1.4-6.5); Neutrophils % (auto) 80.3 %; Toxic Granulation 1+; Toxic Vacuolation Occasional
[2018-10-27 06:59] LABS: Albumin Level 2.3 gm/dl (3.4-5.0); BUN Creatinine Ratio 46.6 (10-20); Bilirubin Direct 0.2 mg/dl (0-0.2); Calcium 8.5 mg/dl (8.5-10.1); Creatinine Clr Calc Pharmacy 62.1 ml/min; Est GFR (African American) 67.9; Est GFR (Non-African American) 58.6; Magnesium 1.9 mg/dl (1.8-2.4); Potassium 5.1 mmol/L (3.5-5.1)
[2018-10-27 07:02] LABS: Bilirubin,Total 0.7 mg/dl (0.2-1); Total Protein 5.5 gm/dl (6.4-8.2)
[2018-10-27] MEDS: ATENOLOL 25 MG TABLET PO SCH (07:45)
[2018-10-27] MEDS: POLYETHYLENE (MIRALAX) 17 GM PACK PO SCH (07:45)
[2018-10-27] MEDS: predniSONE 20 MG TAB PO SCH (07:46)
[2018-10-27] MEDS: PANTOprazole 40 MG TAB PO SCH (07:46)
[2018-10-27] MEDS: POTASSIUM CHLORIDE 20 MEQ TABCR PO SCH (07:46)
[2018-10-27] MEDS: FUROSEMIDE 40 MG TAB PO SCH (07:46)
--- NOTE | 2018-10-27 10:50 | Infectious Disease Progress Nt ---
Date of Service October 27, 2018 Assessment & Plan (1) Gram negative sepsis: follow repeat blood cultures, negative to date. tolerating ertapenem. will need 14 days from first negative blood culture. if he does not tolerate ertapenem, levaquin would be alternative. ok for d/c from ID standpoint when otherwise stable. (2) UTI (urinary tract infection): Subjective pt repeat cultures remain negative, tolerating ertapenem well. afebrile. for pos sible d/c to snf. Results & Data Vital Signs (Past 12 Hours) Vital Signs Temp Pulse Resp BP Pulse Ox 10/27/18 07:08 36.8 C 51 L 16 130/75 98 10/27/18 03:29 36.5 C 64 18 167/85 H 97 10/26/18 23:25 36.6 C 56 L 20 143/70 H 98 Laboratory Results Microbiology 10/25/18 12:49 Blood Aerobic Blood Culture - Preliminary No growth in Aerobic bottle after 24 hours. 10/25/18 12:49 Blood Anaerobic Blood Culture - Preliminary No growth in Anaerobic bottle after 24 hours. 10/25/18 12:38 Blood Aerobic Blood Culture - Preliminary No growth in Aerobic bottle after 24 hours. 10/25/18 12:38 Blood Anaerobic Blood Culture - Preliminary No growth in Anaerobic bottle after 24 hours. 10/19/18 Unknown Urine,Kidney Gram Stain - Final 10/19/18 Unknown Urine,Kidney Aerobic and Anaerobic Culture - Final Klebsiella oxytoca 10/17/18 09:24 Blood Aerobic Blood Culture - Final Klebsiella oxytoca 10/17/18 09:24 Blood Anaerobic Blood Culture - Final 10/17/18 09:23 Blood Aerobic Blood Culture - Final Klebsiella oxytoca 10/17/18 09:23 Blood Anaerobic Blood Culture - Final Klebsiella oxytoca 10/16/18 18:09 Blood Aerobic Blood Culture - Final Klebsiella oxytoca 10/16/18 18:09 Blood Anaerobic Blood Culture - Final Klebsiella oxytoca 10/16/18 17:59 Blood Aerobic Blood Culture - Final Klebsiella oxytoca 10/16/18 17:59 Blood Anaerobic Blood Culture - Final Klebsiella oxytoca 10/16/18 19:24 Urine,Clean Catch Urine Culture - Final Klebsiella oxytoca
[2018-10-27] MEDS: ERTAPENEM SODIUM 1,000 MG in SODIUM CHLORIDE 0.9% 50 ML IV SCH (11:48)
[2018-10-27] MEDS: TAMSULOSIN HCL 0.4 MG CAP PO SCH (18:40)
[2018-10-27] MEDS: RIVAROXABAN 15 MG TAB PO SCH (18:40)
--- NOTE | 2018-10-27 18:51 | Hospitalist Progress Note ---
Date of Service October 27, 2018 Assessment & Plan (1) Generalized weakness: UTI Klebsiella seen in the urine with the same strain found in the blood Also presented with severe right foot pain with gout flare which is improved but still remains Likely had some metabolic encephalopathy and presentation from this infection which has improved however he did have a transient worsening with a SIRS symptoms associated with a renal stone associated hydronephrosis with purulent pyelonephritis status post cystoscopy on 10/19 PT/OT consults placed, pt is planning on Rehab at the time of discharge Improved and OOB to chair and more mobile now but remains weak (2) Gram-negative bacteremia: Blood as well as urine culture growing Klebsiella oxytoca. Previously he had Klebsiella oxytoca growing in his urine culture from 07/2018 He presented with generalized weakness and a UTI also with the same organism- Klebsiella With large kidney stone on the right at 1 cm and then developed right hydronephrosis with urinary obstruction and found to have right ureterolithiasis with a 6mm stone which required urgent intervention by urology with stent placement -Appreciate urological management of upper urinary tract infection or pyel onephritis secondary to ureterolithiasis -Patient is markedly improved since that time -Lr catheter is now removed and he is voiding on his own, no hematuria noted -Was on Rocephin 2 g daily-with development of diffuse rash while on this, may be drug eruption versus contact dermatitis-now resolved with stopping Rocephin -ID started imipenem and recommends 14 days from the time of last negative blood culture which is on 10/25--> end date would be at least 11/08 but would recommend staying on until stone/stent removed -follow repeat blood cultures-no growth to date He has a peripherally inserted ultrasound-guided IV which can stay in for 4 weeks prior to discharge-placed on 10/27 (3) UTI (urinary tract infection): Initially renal ultrasound did not show pyelonephritis however CAT scan did and cystoscopy confirmed the presence of this -Treatment as above -Urology will follow up as out pt to consider means to address stone in a more formal way and also to address his stent which was placed this admission-will need f/u appt with Dr. Christ Peraza within 2 weeks (4) Acute on chronic kidney failure: With significantly elevated BUN and creatinine nephrology feels this to be prerenal likely due to infection and poor p.o. intake with dehydration in the setting of continued diuretic use Renal ultrasound without evidence of obstruction initially A repeat CT scan later on then showed hydro-on the right which was relieved with stent placement Creatinine peaked in the twos and is now down to 1.19 today -He has received intermittent Lasix alternating with IV fluid throughout his whole hospital stay -Nephrology is recommending achieving a slight negative balance Fluid status and weight seem even from previous -doing well since restarting Lasix but only at 40 mg once daily and follow BMP -Appreciate nephrology consultation-they have signed off -Avoid nephrotoxins -Renally dose all medications -Continue to hold off on restarting home metolazone and spironolactone (5) 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: Remains persistent somewhat in the right foot at this time with tenderness -Continue allopurinol 100 mg daily -Converted IV hydrocortisone to prednisone on 10/25 and finish out taper (6) Atrial fibrillation: Chronic. Remains rate controlled and now bradycardic to the 30s again on atenolol 25 with bradycardia after admission likely secondary to atenolol use in the setting of ARJUN as atenolol is renally excreted -decreased atenolol to 12.5mg daily and has had improvement - Xarelto was on hold for hematuria which is now resolved; also had dark bowel movement is concerning-stool now normal in color and hemoglobin remains perfectly stable from several days ago -Restarted Xarelto on 10/25 and doing well (7) Chronic CHF: Chronic diastolic CHF-currently stable. Clinically patient appeared volume overloaded with JVD and some respiratory distress associate with crackles on auscultation the patient was given Lasix as mentioned above 40 mg in the evening of 10/18, 80 mg in the morning of 10/19 none the morning of 10/20, lasix dosed on 10/22 furosemide at this time -Restarted Lasix 40 mg daily as above and doing well -Follow volume status (8) Leukocytosis: Likely secondary to infection and now due to steroid use (9) Elevated troponin: Mildly elevated troponin 0.075/0 0.087/0.053 which is likely secondary to myocardial demand ischemia in the setting of acute illness He has no ischemic changes on his ECG No further chest pain or other symptoms (10) Hyponatremia: Resolved with resolution of acute kidney injury (11) Hyperkalemia: resolved after kayexalate Now slightly up again-dcd po potassium (12) Lumbar stenosis with neurogenic claudication: Long-standing issue with history of back surgery, level of discomfort is at baseline no new symptoms (13) Ambulatory dysfunction: Secondary to generalized weakness from acute illness in the setting of ch ronic lower back pain issues PT/OT consultations appreciated -He will need rehab placement (14) Prostate cancer: Diagnosed in 2017 and follows with urology, Dr. 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 Was recommended to have follow-up imaging in 1 year-I do not see evidence of this -Needs follow-up imaging routinely as an outpatient (18) DVT prophylaxis: Xarelto Disposition-remain hospitalized on PCU PT/OT consults placed Plan for [facility] placement tomorrow Subjective feels well, no concerns Tele with Afib rates 30s-50s Review of Systems Review of Systems: All systems reviewed & are unremarkable except as noted in HPI & below (still some right foot pain) Physical Exam Constitutional: WD/WN, vitals as above + obese Eyes: PERRL, conjunctivae normal, anicteric sclerae Neck: trachea midline, no thyromegaly Respiratory: normal respiratory effort, lungs clear to auscultation normal respiratory effort Cardiovascular: Rate/Rhythm: + bradycardic and + irregularly irregular Heart Sounds: no murmur Extremities: + edema (trace pitting edema legs bilaterally) Gastrointestinal (Abdomen): normal bowel sounds, soft, nontender, no hepatosplenomegaly Inspection/Auscultation: normal bowel sounds; + abdomen abnormal to inspection (Incisional scar in the midline) and abdomen not distended Musculoskeletal: Extremities: extremities normal to inspection (With some tenderness to palpation over the right dorsal foot, no erythema or edema or effusion); no cyanosis and no clubbing Skin: no rashes, warm and dry + rash (Chronic venous stasis changes with hemosiderin deposits on legs bilaterally) Neurologic: moves all extremities and awake; no focal motor deficits Psychiatric: A+Ox3, euthymic affect Results & Data Vital Signs (Past 12 Hours) Vital Signs Temp Pulse Pulse Resp BP Pulse Ox 10/27/18 15:54 36.8 C 60 19 117/69 96 10/27/18 15:00 63 10/27/18 11:43 36.6 C 55 L 20 124/58 L 97 10/27/18 07:08 36.8 C 51 L 16 130/75 98 Laboratory Results 10/27/18 10/27/18 Range/Units 06:15 06:15 WBC 14.76 H (4.8-10.8) K/uL RBC 3.70 L (4.7-6.1) M/uL Hgb 12.4 L (14.0-18.0) g/dL Hct 37.4 L (42-52) % MCV 101.1 H (80-100) fL MCH 33.5 (25-34) pg MCHC 33.2 (32-36) g/dL RDW Std Deviation 56.4 H (36.4-46.3) fL RDW Coeff of Anthony 15.5 H (11.5-14.5) % Plt Count 180 (130-400) K/uL MPV 11.5 H (7.4-10.4) fL Immature Gran % (Auto) 5.4 % Neut % (Auto) 80.3 % Lymph % (Auto) 8.1 % [place] % (Auto) 5.2 % Eos % (Auto) 0.8 % Baso % (Auto) 0.2 % Immature Gran # (Auto) 0.80 H (0.00-0.02) K/uL Neut # (Auto) 11.84 H (1.4-6.5) K/uL Lymph # (Auto) 1.20 (1.2-3.4) K/uL [place] # (Auto) 0.77 H (0.11-0.59) K/uL Eos # (Auto) 0.12 (0-0.5) K/uL Baso # (Auto) 0.03 (0-0.2) K/uL Toxic Granulation 1+ Toxic Vacuolation Occasional Sodium 141 (136-145) mmol/L Potassium 5.1 (3.5-5.1) mmol/L Chloride 107 (98-107) mmol/L Carbon Dioxide 31 (21-32) mmol/L Anion Gap 4.0 (3-11) BUN 55 H (7-18) mg/dl Creatinine 1.19 (0.6-1.4) mg/dl Est Cr Clr Drug Dosing 62.1 ml/min Est GFR ( Amer) 67.9 Est GFR (Non-Af Amer) 58.6 BUN/Creatinine Ratio 46.6 H (10-20) Glucose 76 (70-99) mg/dl Calcium 8.5 (8.5-10.1) mg/dl Magnesium 1.9 (1.8-2.4) mg/dl Total Bilirubin 0.7 (0.2-1) mg/dl Direct Bilirubin 0.2 (0-0.2) mg/dl AST 16 (15-37) U/L ALT 48 (12-78) U/L Alkaline Phosphatase 55 (45-117) U/L Total Protein 5.5 L (6.4-8.2) gm/dl Albumin 2.3 L (3.4-5.0) gm/dl (1) Chronic CHF Heart failure type: diastolic Qualified Code(s): I50.32 - Chronic diastolic (congestive) heart failure
[2018-10-28 05:57] LABS: Hemoglobin 12.5 g/dL (14.0-18.0); Mean Corpuscular Hgb Conc 33.8 g/dL (32-36); Mean Corpuscular Volume 100.5 fL (80-100); Mean Platelet Volume 11.8 fL (7.4-10.4); Platelet Count 180 K/uL (130-400); RDW Coefficient of Variation 15.5 % (11.5-14.5); RDW Standard Deviation 55.9 fL (36.4-46.3); Red Blood Count 3.68 M/uL (4.7-6.1); White Blood Count 13.02 K/uL (4.8-10.8)
[2018-10-28] MEDS: POLYETHYLENE (MIRALAX) 17 GM PACK PO SCH (07:35)
[2018-10-28] MEDS: predniSONE 20 MG TAB PO SCH (07:40)
[2018-10-28] MEDS: ATENOLOL 25 MG TABLET PO SCH (07:40)
[2018-10-28] MEDS: FUROSEMIDE 40 MG TAB PO SCH (07:40)
[2018-10-28] MEDS: ERTAPENEM SODIUM 1,000 MG in SODIUM CHLORIDE 0.9% 50 ML IV SCH (10:15)
--- NOTE | 2018-10-28 11:21 | Discharge Summary ---
Date of Service October 28, 2018 Admission HPI Per Admitting Provider 77-year-old male with a history of chronic atrial fibrillation congestive heart failure chronic kidney disease and gout who developed severe right forefoot pain over the past several days that has progressed and is quite severe and he is unable to bear any weight on the right foot at all. His appetite is been very poor due to the pain and he states he has not eaten or drank anything substantially for the past several days. He presents to the ED with acute kidney injury with creatinine 2.3. His white count is 20,000. He appears to have acute gout in the right foot and is volume depleted. He has continued to take his Lasix, metolazone, spironolactone even though his oral intake has been poor over the past several days. I do not believe this is acute cellulitis. Vancomycin ordered by the ED has been discontinued. Clinically on physical exam there is no evidence of cellulitis but he is exquisitely tender to touch over the right lateral forefoot area which is more consistent with acute gout. Uric acid levels are pending but in the past he has had markedly elevated uric acid levels and he does take allopurinol because he has had gout in the past. He does meet admission criteria due to the acute kidney injury and he will be given judicious intravenous fluids while the diuretics are on hold. Colchicine has been ordered 0.6 mg every 2 hours for 5 doses along with IV steroids which should stop the acute gout attack quickly overnight. He remains on Xarelto 50 mg daily for the chronic atrial fibrillation which is rate controlled with atenolol. He will be placed on telemetry tonight however. Principal Diagnosis Klebsiella bacteremia and UTI/Acute pyelonephritis ARJUN Discharge Exam Constitutional WD/WN, vitals as above + obese Eyes PERRL, conjunctivae normal, anicteric sclerae Neck trachea midline, no thyromegaly Respiratory normal respiratory effort, lungs clear to auscultation normal respiratory effort Cardiovascular Rate/Rhythm: regular rate and + irregularly irregular Heart Sounds: no murmur Extremities: + edema (trace pitting edema legs bilaterally) Gastrointestinal (Abdomen) normal bowel sounds, soft, nontender, no hepatosplenomegaly Inspection/Auscultation: + abdomen abnormal to inspection (Incisional scar in the midline) and abdomen not distended Musculoskeletal Extremities: extremities normal to inspection (With some tenderness to palpation over the right dorsal foot, no erythema or edema or effusion); no cyanosis and no clubbing Skin no rashes, warm and dry + rash (Chronic venous stasis changes with hemosiderin deposits on legs bilater ally) Neurologic moves all extremities and awake; no focal motor deficits Psychiatric A+Ox3, euthymic affect Discharge Data Allergies Allergy/AdvReac Type Severity Reaction Status Date / Time ceftriaxone [From Rocephin] Allergy Mild Rash Verified 10/26/18 17:40 Consultations 10/16/18 17:49 ED Decision to Admit Stat 10/17/18 18:11 Consult Nephrology Routine 10/19/18 15:11 Consult Urology Routine 10/25/18 11:17 Consult Infectious Diseases Routine 10/26/18 17:24 Consult Case Management - Discharge Planning Routine Procedures Performed Operation Date: 10/19/18 14:20 Actual Procedures p Cystoscopy, Right Retrograde, Stent Placement - Moose Peraza II, DO Ordered Studies 10/17/18 09:13 US renal/blad retro comp Routine 10/19/18 [place] retrograde includes kub Routine 10/19/18 13:37 CT abd pelvis wo con Routine CXR Foot xray Abdomen xray Hospital Course (1) Generalized weakness: UTI Klebsiella seen in the urine with the same strain found in the blood Also presented with severe right foot pain with gout flare which is improved but still remains Likely had some metabolic encephalopathy and presentation from this infection which has improved however he did have a transient worsening with a SIRS symptoms associated with a renal stone associated hydronephrosis with purulent pyelonephritis status post cystoscopy on 10/19 PT/OT consults placed, pt is planning on Rehab at the time of discharge Improved and OOB to chair and more mobile now but remains weak (2) Gram-negative bacteremia: Septicemia, POA Blood as well as urine culture growing Klebsiella oxytoca. Previously he had Klebsiella oxytoca growing in his urine culture from 07/2018 He presented with generalized weakness and a UTI also with the same organism- Klebsiella With large kidney stone on the right at 1 cm and then developed right hydronephrosis with urinary obstruction and found to have right ureterolithiasis with a 6mm stone which required urgent intervention by urology with stent placement -Appreciate urological management of upper urinary tract infection or pyelonephritis secondary to ureterolithiasis -Patient is markedly improved since that time -Lr catheter is now removed and he is voiding on his own, no hematuria noted -Was on Rocephin 2 g daily-with development of diffuse rash while on this, may be drug eruption versus contact dermatitis-now resolved with stopping Rocephin -ID started imipenem and recommends 14 days from the time of last negative blood culture which is on 10/25--> end date would be at least 11/08 but would recommend staying on until stone/stent removed -follow repeat blood cultures-no growth to date He has a peripherally inserted ultrasound-guided IV which can stay in for 4 weeks prior to discharge-placed on 10/27 (3) UTI (urinary tract infection): Initially renal ultrasound did not show pyelonephritis however CAT scan did and cystoscopy confirmed the presence of this -Treatment as above -Urology will follow up as out pt to consider means to address stone in a more formal way and also to address his stent which was placed this admission-will need f/u appt with Dr. Christ Peraza within 2 weeks (4) Acute on chronic kidney failure: Previously with significantly elevated BUN and creatinine nephrology feels this to be prerenal likely due to infection and poor p.o. intake with dehydration in the setting of continued diuretic use Renal ultrasound without evidence of obstruction initially A repeat CT scan later on then showed hydro-on the right which was relieved with stent placement Creatinine peaked in the twos and is now down to 1.3 on day of discharge -He has received intermittent Lasix alternating with IV fluid throughout his whole hospital stay -Nephrology is recommending achieving a slight negative balance Fluid status and weight seem even from previous -doing well since restarting Lasix but only at 40 mg once daily and follow BMP -Appreciate nephrology consultation-they have signed off -Avoid nephrotoxins -Renally dose all medications -Continue to hold off on restarting home metolazone and spironolactone (5) 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: Remains persistent somewhat in the right foot at this time with tenderness -Continue allopurinol 100 mg daily -Converted IV hydrocortisone to prednisone on 10/25 and finish out taper (6) Atrial fibrillation: Chronic. Remains rate controlled and was again bradycardic to the 30s after restarting the previously discontinued atenolol 25 with bradycardia after admission likely secondary to atenolol use in the setting of ARJUN as atenolol is renally excreted -decreased atenolol to 12.5mg daily and has had improvement - Xarelto was on hold for hematuria which is now resolved; also had dark bowel movement is concerning-stool now normal in color and hemoglobin remains perfectly stable from several days ago -Restarted Xarelto on 10/25 and doing well (7) Chronic CHF: Chronic diastolic CHF-currently stable. Clinically patient appeared volume overloaded with JVD and some respiratory distress associated with crackles on auscultation in the middle of the stay and the patient was given Lasix as mentioned above 40 mg in the evening of 10/18, 80 mg in the morning of 10/19 none the morning of 10/20, lasix dosed on 10/22 furosemide at this time -Restarted Lasix 40 mg daily as above and doing well -Follow volume status (8) Leukocytosis: Likely secondary to infection and now due to steroid use, WBC count 13k on day of discharge -follow CBC as outpt after prednisone course completed (9) Elevated troponin: Mildly elevated troponin 0.075/0 0.087/0.053 which is likely secondary to myocardial demand ischemia in the setting of acute illness He has no ischemic changes on his ECG No further chest pain or other symptoms (10) Hyponatremia: Resolved with resolution of acute kidney injury (11) Hyperkalemia: resolved after kayexalate Then was slightly up again-dcd po potassium K+ on day of discharge was down to 4.6 -follow BMP in 1 week after discharge (12) Lumbar stenosis with neurogenic claudication: Long-standing issue with history of back surgery, level of discomfort is at baseline no new symptoms (13) Ambulatory dysfunction: Secondary to generalized weakness from acute illness in the setting of chronic lower back pain issues PT/OT consultations appreciated -He will need rehab placement (14) Prostate cancer: Diagnosed in 2017 and follows with urology, Dr. 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 Was recommended to have follow-up imaging in 1 year-I do not see evidence of this -Needs follow-up imaging routinely as an outpatient (18) DVT prophylaxis: Xarelto Disposition-stable for dc to acute rehab Total Time Total Time Spent Total Time Spent (In Minutes): >30 min Total Time Includes: Examination of the Patient, Discharge Planning and Medication Reconciliation Discharge Plan Discharge Items Patient Disposition: Transfer Inpatient Rehab Fac Reason For Visit: ACUTE ON CHRONIC KIDNEY DISEASE, ACUTE GOUT Discharge Diagnosis: Klebsiella bacteremia and acute pyelonephritis, ureterolithiasis, Acute kidney injury Condition: Good Discharge Goals: Decrease discomfort, Diagnostic testing, Improve disease control, Learn about illness and Therapeutic intervention Activity: As commented below Lifting: Gradually increase as tolerated Bathing: No limitations Bathing Comment: Keep IV site dry Exercise/Sports: Gradually increase as tolerated Exercise Comment: with PT/OT Non-emergency contact: Primary Care Provider and Urologist Call non-emergency contact if: you have any medication questions, your symptoms worsen, your pain is not controlled, your pain is worsening, your pain is unusual for you, your pain is concerning for you, you have a fever and your temperature is above 100.5 Follow-up/Referrals: Dmitri Shelton MD [Physician] - (Please follow up within 2 weeks ) Faiza Aguilar MD [Primary Care Provider] - Moose Peraza II, DO [Physician] - (Please follow up within 1-2 weeks) Diet: Low Sodium (2gm) Addtl Provider Instructions: Please continue ertapenem for at least 11 more days, but would continue through the time of planned repeat Urological intervention for ureteral stent and stone. As for his ARJUN, his spironolactone and metolazone were discontinued, and lasix was restarted at 40mg once daily. Please follow daily weights, BMP in 1-2 days, and can increase lasix back to 40mg bid if peripheral edema worsens and renal function stable. Continue prednisone taper down for acute gout flare in right foot. Atenolol dose was cut in half for bradycardia which is now resolved. Please follow up with Infectious Disease within 2 weeks, and with Urology within 1-2 weeks for ureteral stent and definitive stone management. Prescriptions: New ipratropium-albuterol 0.5 mg-3 mg(2.5 mg base)/3 mL Solution For Nebulization 3 ml NEB Q4R PRN (Reason: shortness of breath or wheezing) Qty: 90 RF: 0 prednisone 20 mg Tablet 40 mg PO QAM Qty: 7 RF: 0 atenolol 25 mg Tablet 12.5 mg PO QAM Qty: 15 RF: 0 ertapenem 1 gram recon soln 1 gm IV DAILY 11 Days RF: 0 Continued polyethylene glycol 3350 [Miralax] 17 gram Powder In Packet 17 g PO QAM RF: 0 allopurinol 100 mg tablet 200 mg PO QDL RF: 0 calcium carbonate [Calcium 600] 600 mg calcium (1,500 mg) Tablet 1,200 mg PO QDL RF: 0 tamsulosin 0.4 mg capsule 0.4 mg PO QDD RF: 0 docusate sodium [Colace] 100 mg Capsule 100 mg PO UD RF: 0 cholecalciferol (vitamin D3) [Vitamin D3] 1,000 unit Capsule 2,000 unit PO QDD RF: 0 Centrum Silver 0.4-300-250 mg-mcg-mcg Tablet 1 tab PO QAM RF: 0 acetaminophen [Tylenol] 325 mg Capsule PO Q6H PRN (Reason: Pain) RF: 0 Xarelto 15 mg tablet 15 mg PO QDD RF: 0 Shante-C with Bioflavonoids 1,000-200 mg Tablet 1 tab PO QDD RF: 0 Changed furosemide 40 mg tablet 40 mg PO QAM Qty: 0 RF: 0 Discontinued metolazone 2.5 mg tablet 2.5 mg PO 3XWK RF: 0 potassium chloride 10 mEq capsule, extended release 20 meq PO BIDM RF: 0 potassium chloride 10 mEq capsule, extended release 10 meq PO QDL RF: 0 atenolol 25 mg tablet 25 mg PO QAM RF: 0 spironolactone 25 mg tablet 25 mg PO BIDM RF: 0 methylprednisolone 4 mg tablets,dose pack 4 mg PO UD RF: 0 Stand-Alone Forms: [facility] Discharge Orders: Discharge Order (Routine); Ordered 10/28/18 Ordered By: Corinne Cerrato Skilled Items Patient informed of condition?: Yes DNR: No Discharge Level of Care: Acute rehab Communicable Disease: No Discharge Prognosis: Improving Admission Data Admit Date/Time: 10/16/18 18:59 Attending Provider: Corinne Cerrato Admit Provider: Stephen Saavedra Primary Care Provider: Faiza Aguilar V. Other Providers: Corinne Cerrato ; Stephen Saavedra ; Tommy Llamas ; Vaibhav Olivarez ; Dmitri Shelton Service: Telemetry Other Interventions: Discharge Summary Assessment (RN) Last Done: 10/28/18 10:00 Pending Studies at Discharge: Yes Studies:: Final repeat Blood cultures-no growth to date DC Date/Time DO NOT enter until pt leaves facility: 10/28/18 14:41
[2018-10-28 11:46] LABS: BUN Creatinine Ratio 44.2 (10-20); Creatinine Clr Calc Pharmacy 56.6 ml/min; Est GFR (Non-African American) 52.6
--- NOTE | 2018-11-01 12:30 | Coding Query ---
SEPSIS To promote full compliance with coding requirements relating to patient care, physician participation is requested in all cases of death surveys coder uncertainty. Please assist us with the question(s) below: In responding to this query, please exercise your independent professional judgement. The fact that a question is asked does not imply that any particular answer is desired or expected. We appreciate your clarification on this issue. Throughout the medical record, you have clearly documented a localized infection and your patient has clinical evidence of a generalized sepsis or severe sepsis. The term urosepsis is a nonspecific entity and is coded as an UTI. If the patient has sepsis, severe sepsis, from an urinary source or some other source, please clarify in your response below. The medical record reflects the following clinical findings: (With dates as appropriate) (Body temperature of >38.3 C(101 F) or <36 C(96.8F), pulse >90/minute, respirations >20/minute, WBC count >12,000 or <4,000, altered mental status, significant edema or positive fluid balance, hyperglycemia without diabetes, hypotension, metabolic acidosis (elev. lactate level, anion gap or reduced blood pH), shock, positive blood culture (enter organism) ____ ( )Bacteremia (Nonspecific laboratory finding of bacteria in the blood) Specify Organism ( ) Present on Admission ( ) Not present on admission ( ) Unable to clinically determine (x ) Septicemia (Systemic disease associated with the presence of pathogenic microorganisms in the blood): Specify Organism -Klebsiella oxytoca (x ) Present on Admission ( ) Not present on admission ( ) Unable to clinically determine ( ) Sepsis Specify Organism Specify Associated Condition/Diagnosis ( ) Present on Admission ( ) Not present on admission ( ) Unable to clinically determine ( ) Severe Sepsis (Sepsis associated with acute organ dysfunction) Specify Organism Specify Associated Condition/Diagnosis ( ) Present on Admission( ) Not present on admission ( ) Unable to clinically determine ( ) Septic Shock (Severe sepsis with acute circulatory failure, unexplained by other causes) ( ) Present on Admission( ) Not present on admission ( ) Unable to clinically determine ( ) Other, patient has: MTDD
== END 2018-10-28 14:41 | DRG 853 ==
LOC: ED 16:33 → 2E 18:59 → SUATTDRO 18:59 → 2E 20:22

== ENCOUNTER 2020-12-14 12:24 | Inpatient (IN) ==
--- NOTE | 2020-12-14 13:49 | Emergency Department Note ---
History of Present Illness General Chief complaint: Abnormal Labs/Diagnostic Testing Stated complaint: LOW SODIUM, REFERRED BY DOCTOR Time Seen by Provider: 12/14/20 13:03 History of Present Illness Maximum Pain Intensity: 0 79-year-old male was sent here for hyponatremia. The patient had some outpatient blood work a few days ago that showed hyponatremia. The patient had a recheck of the sodium that was lower. It was even lower today when it was rechecked. The patient was sent here for evaluation. Sodium today was 120. The patient does report some generalized weakness. The states that he seems to have some short-term memory issues. He does have some generalized weakness. He also had a recent change in his diuretic therapy. No additional complaints. No nausea or vomiting. reports decreased p.o. intake recently as well. The patient sodium today is 122. CBC was unremarkable. BUN is 92 and creatinine is 1.65. This is near the patient's baseline. CT scan of the brain did not show intracranial bleed or mass. Urine suggest infection. The patient was given IV Rocephin. He will be seen by the hospitalist for further patient evaluation and care. Home Medications Medication Instructions Recorded Confirmed Type dccxqtah-qwm-grewh acid 0.4 1 tab PO QDL 10/16/18 12/14/20 History mg-lycopene 300 mcg-lutein 250 mcg tablet (Centrum Silver) ascorbate calcium-bioflavonoid 1 tab PO QDD tab 07/27/19 12/14/20 History 1,000 mg-200 mg tablet (Shante-C with Bioflavonoids) methylprednisolone 4 mg tablet 4 mg PO DAILY PRN 01/11/20 12/14/20 History spironolactone 25 mg tablet 25 mg PO QDB tab 01/11/20 12/14/20 History tamsulosin 0.4 mg capsule 0.4 mg PO QDD 04/07/20 12/14/20 History calcium carbonate 600 mg calcium 600 mg PO DAILY 04/10/20 12/14/20 History (1,500 mg) tablet (Calcium) potassium chloride 10 mEq 30 meq PO TIDM #500 cap 04/10/20 12/14/20 Rx capsule,extended release atenolol 25 mg tablet 25 mg PO DAILY #90 tab 04/30/20 12/14/20 Rx cholecalciferol (vitamin D3) 25 25 mcg PO DAILY #30 cap 07/12/20 12/14/20 Rx mcg (1,000 unit) capsule hydrocolloid dressing 2" X 2" #10 ea 07/26/20 12/14/20 Rx (Aquacel Extra) hydrocolloid dressing 4" X 5" #5 ea 07/26/20 12/14/20 Rx (Aquacel Extra) rivaroxaban 15 mg tablet (Xarelto) 15 mg PO DAILY #90 tab 08/06/20 12/14/20 Rx leuprolide (3 month) 22.5 mg (3 22.5 mg SUBCUT ONCE #1 ea 09/14/20 12/14/20 Rx month) subcutaneous syringe (Eligard) psyllium husk 3.4 gram/5.4 gram 1 tbsp PO DAILY 10/29/20 12/14/20 History oral powder (Metamucil) fluocinonide 0.05 % topical cream 1 applic TOP DAILY PRN #30 gm 11/05/20 12/14/20 Rx metolazone 2.5 mg tablet 2.5 mg PO Q OTHER DAY 90 Days #45 11/05/20 12/14/20 Rx tab allopurinol 100 mg tablet 200 mg PO QDL #180 tab 11/26/20 12/14/20 Rx bumetanide 2 mg tablet 2 mg PO BID #60 tab 11/29/20 12/14/20 Rx Allergies Allergy/AdvReac Type Severity Reaction Status Date / Time ceftriaxone [From Rocephin] Allergy Mild Rash Verified 12/07/20 14:13 gabapentin Allergy Mild Rash Verified 12/07/20 14:13 pregabalin [From Lyrica] Allergy SUICIDAL Verified 12/07/20 14:13 Past Med/Surg History Medical History Ambulatory dysfunction uses a walker and uses a wheel chair Atrial fibrillation (09/06/13) 2013 and takes xarelto Chronic diastolic CHF (congestive heart failure) Chronic kidney disease (CKD) Cor pulmonale, chronic (09/06/13) Gastrointestinal complaints Generalized weakness Hearing deficit Hx of gout Hypertension IPMN (intraductal papillary mucinous neoplasm) Kidney stones Lower extremity edema Lumbar stenosis with neurogenic claudication (09/06/13) Numbness of right foot ANKLE TO BOTTOM OF FOOT Obesity (BMI 30-39.9) Pancreatic cyst Paroxysmal ventricular tachycardia Prostate cancer (06/11/17) Pulmonary hypertension Spinal stenosis of lumbar region Tricuspid regurgitation X-ray of lung, abnormal Surgical History H/O lithotripsy History of back surgery X 3 10/03/13 - I&D Lumbar Spine - Ramos #3, ETT #8.0, Grade 1 View 09/18/13 - I&D Lumbar Spine/Hematoma Evacuation - MAC #4, ETT# 8.0 cuffed, Grade 1 View 09/06/13 - L4-S1 Laminectomy - MAC #4, ETT #8.0 HiLo Oral, Grade 1 View History of cardiac cath 2013 [place] History of cataract surgery BOTH History of colon surgery FOR RUPTURED COLON History of lung surgery FOR SPOT ON LEFT LUNG AND FLUID IN LUNG History of surgical removal of pilonidal cyst History of total left knee replacement History of total right knee replacement Hx of colonoscopy Hx of prostate biopsy NUMEROUS S/P insertion of inferior vena caval filter Family History Mother , 95yo Kidney disease Natural with unknown cause Dementia Father , in his 70s Myocardial infarction Brother Unknown family medical history Brother Unknown family medical history Brother Unknown family medical history Sister Dementia Sister Unknown family medical history Other No pertinent family history Denies family history of Ovarian cancer Prostate cancer Breast cancer Colorectal cancer Social History Smoking Status: Never smoker Second Hand Exposure: No; Hx Alcohol Use: No Hx Substance Use: No Preferred Language: Marshallese Communication Ability: Effective Visual Impairment: No Limitations Hearing Ability: Use of Hearing Aid Signal Worker Required: No Beliefs That Will Affect Care: None marital status: Current Living Situation: Spouse Current Living Situation Comment: [facility]. current occupational status: retired Feels Safe at Home: Yes caffeine: No during the past year weight has: remained stable Physical Activity Frequency: Does not Exercise Seatbelt Use: always Assistive Devices: Glasses, Hearing Aid - Bilateral, Walker and Wheelchair Review of Systems A total of 10 systems reviewed and were otherwise negative Physical Exam Vital Signs Vital Signs - 24 hr 12/14/20 12:28 12/14/20 13:38 Temperature 36.7 C Temperature Source Temporal Artery Scan Pulse Rate 55 L Pulse Rate [Apical] 53 L Pulse Rhythm [Apical] Irregular Respiratory Rate 18 23 Respiratory Effort / Characteristics Non-Labored Spontaneous Respiratory Depth Shallow Blood Pressure 107/52 L Blood Pressure [Right Arm] 121/64 Blood Pressure Mean 70 Blood Pressure Mean [Right Arm] 83 Blood Pressure Position [Right Arm] Lying Pulse Oximetry 97 95 Oxygen Delivery Method Room Air Sepsis Recent Fever Within 48 Hours No Sepsis New/Unexplained Change in Mental Status No Sepsis Action Taken by Nursing No Action Required CONSTITUTIONAL/VITAL SIGNS: Reviewed / noted above. GENERAL: Non-toxic in appearance. INTEGUMENTARY: Warm, dry, and [place]. HEAD: Normocephalic. EYES: without scleral icterus or trauma. ENT/OROPHARYNX: clear and moist. LYMPHADENOPATHY/NECK: Is supple without lymphadenopathy or meningismus. RESPIRATORY: Clear to auscultation bilaterally. No increased work of breathing. CARDIOVASCULAR: Regular rate and rhythm. GI/ABDOMEN: Soft and nontender. No organomegaly or pulsatile mass. EXTREMITIES: Warm and well perfused. BACK: No CVA tenderness. NEUROLOGICAL: Intact without focal deficits. PSYCHIATRIC: normal affect. MUSCULOSKELETAL: Normally developed with some generalized weakness. TRIAGE NURSING DOCUMENTATION REVIEWED. Medical Decision Making Differential Diagnosis Differential includes acute coronary syndrome, myocardial infarction, CVA, TIA, anemia, infection, pneumonia, UTI, pyelonephritis, poor nutrition, dehydration, electrolyte disturbance,hypoglycemia. Medical Records Attestation: I reviewed the patient's medical records. Home Medications Current Medication List: was personally reviewed by me Laboratory Data Attestation: I reviewed the patient's lab results. Result diagrams: 12/14/20 13:40 12/14/20 13:40 Lab Results 12/14/20 12/14/20 12/14/20 Range/Units 13:40 13:40 13:40 WBC 4.75 L (4.8-10.8) K/uL RBC 3.35 L (4.7-6.1) M/uL Hgb 11.6 L (14.0-18.0) g/dL Hct 33.4 L (42-52) % MCV 99.7 (80-100) fL MCH 34.6 H (25-34) pg MCHC 34.7 (32-36) g/dL RDW Std Deviation 65.9 H (36.4-46.3) fL RDW Coeff of Anthony 18.2 H (11.5-14.5) % Plt Count 177 (130-400) K/uL MPV 10.5 H (7.4-10.4) fL Immature Gran % (Auto) 0.2 % Neut % (Auto) 73.3 % Lymph % (Auto) 14.7 % [place] % (Auto) 5.9 % Eos % (Auto) 5.5 % Baso % (Auto) 0.4 % Neut # (Auto) 3.48 (1.4-6.5) K/uL Lymph # (Auto) 0.70 L (1.2-3.4) K/uL [place] # (Auto) 0.28 (0.11-0.59) K/uL Eos # (Auto) 0.26 (0-0.5) K/uL Baso # (Auto) 0.02 (0-0.2) K/uL Immature Gran # (Auto) 0.01 (0.00-0.02) K/uL Sodium 122 L (136-145) mmol/L Potassium 3.9 (3.5-5.1) mmol/L Chloride 86 L (98-107) mmol/L Carbon Dioxide 29 (21-32) mmol/L Anion Gap 7.0 (3-11) BUN 92 H (7-18) mg/dl Creatinine 1.65 H (0.6-1.4) mg/dl Est Cr Clr Drug Dosing Not Reportable Est GFR ( Amer) 45.1 ml/min Est GFR (Non-Af Amer) 38.9 ml/min BUN/Creatinine Ratio 55.8 H (10-20) Glucose 103 H (70-99) mg/dl Calcium 9.7 (8.5-10.1) mg/dl Magnesium 2.3 (1.8-2.4) mg/dl Total Bilirubin 1.0 (0.2-1) mg/dl AST 25 (15-37) U/L ALT 25 (12-78) U/L Alkaline Phosphatase 49 (45-117) U/L Total Creatine Kinase 100 (39-308) U/L Total Protein 7.9 (6.4-8.2) gm/dl Albumin 3.9 (3.4-5.0) gm/dl Globulin 4.0 (2.5-4.0) gm/dl Albumin/Globulin Ratio 1.0 (0.9-2) TSH 2.390 (0.300-4.500) uIu/ml Urine Color Yellow Urine Appearance Cloudy A (Clear) Urine pH 6.5 (4.5-7.5) Ur Specific [place] 1.012 (1.000-1.030) Urine Protein Negative (Negative) Urine Glucose (UA) Negative (Negative) Urine Ketones Negative (Negative) Urine Blood Trace H (Negative) Urine Nitrite Negative (Negative) Urine Bilirubin Negative (Negative) Urine Urobilinogen Negative (Negative) Ur Leukocyte Esterase 3+ H (Negative) Urine WBC (Auto) >30 H (0-5) /hpf Urine RBC (Auto) 0-4 (0-4) /hpf U Hyaline Cast (Auto) 1-5 (0-5) /lpf U Epithel Cells (Auto) 0-5 (0-5) /lpf Urine Bacteria (Auto) 4+ H (Negative) Imaging Data Radiologist's Impression: Chest X-Ray 12/14/20 13:10 SINGLE VIEW CHEST CLINICAL HISTORY: Generalized weakness. FINDINGS: An AP, portable, upright chest radiograph is compared to study dated 11/29/2020 and correlated with chest CT dated 06/13/2018. The heart is enlarged noting atherosclerotic calcification of the thoracic aorta. There is mild pulmonary vascular congestion. There is postoperative change and mild volume loss in the left lung. Suture material projects over the left lower chest. Bibasilar airspace opacities likely represents scarring/atelectasis. No large pleural effusion or pneumothorax is seen. The skeletal structures are osteopenic. The bony thorax is grossly intact. IMPRESSION: 1. Cardiomegaly with mild pulmonary vasculature congestion. 2. Bibasilar opacities likely represent scarring/atelectasis. Clinical correlation will be required. ACT 112: Negative or not required by law. Electronically signed by: Reji Almonte M.D. 12/14/2020 2:06 PM ECG Data Attestation: I personally reviewed and interpreted this ECG as follows: Additional Comments: Twelve-lead EKG: Per my interpretation there is atrial fibrillation at a rate of 58. Occasional PVC. No ST elevation. Normal QTC. Low voltage. MDM Narrative Patient presents with generalized weakness as well as some outpatient lab work that shows hyponatremia. He is in no distress on my exam. His vital signs are stable. Impression & Plan Acute hyponatremia, Acute UTI Discharge Plan Visit Data Chief Complaint: Abnormal Labs/Diagnostic Testing Stated Complaint: LOW SODIUM, REFERRED BY DOCTOR ED Provider: Tommy Nguyen Discharge Problem: Acute hyponatremia, Acute UTI Patient Disposition: Admitted As Inpatient Forms Stand Alone Forms: [facility], Virtual Emergency Department, Important Visit Information Prescriptions Prescriptions: No Action Eligard (3 month) 22.5 mg syringe 22.5 mg subcut ONCE Qty: 1 RF: 0 Metamucil 3.4 gram/5.4 gram powder 1 tbsp PO DAILY RF: 0 atenolol 25 mg tablet 25 mg PO DAILY Qty: 90 RF: 3 cholecalciferol (vitamin D3) 25 mcg (1,000 unit) capsule 25 mcg PO DAILY Qty: 30 RF: 0 Xarelto 15 mg tablet 15 mg PO DAILY Qty: 90 RF: 3 fluocinonide 0.05 % cream 1 applic TOP DAILY PRN (Reason: SKIN ISSUES) Qty: 30 RF: 3 metolazone 2.5 mg tablet 2.5 mg PO Q OTHER DAY 90 Days Qty: 45 RF: 1 Hold Instructions: hyponatremia allopurinol 100 mg tablet 200 mg PO QDL Qty: 180 RF: 1 Shante-C with Bioflavonoids 1,000-200 mg tablet 1 tab PO QDD RF: 0 bumetanide 2 mg tablet 2 mg PO BID Qty: 60 RF: 2 potassium chloride 10 mEq capsule, extended release 30 meq PO TIDM Qty: 500 RF: 4 calcium carbonate [Calcium 600] 600 mg calcium (1,500 mg) tablet 600 mg PO DAILY RF: 0 spironolactone 25 mg tablet 25 mg PO QDB RF: 0 Hold Instructions: hyponatremia methylprednisolone 4 mg tablet 4 mg PO DAILY PRN (Reason: gout) RF: 0 (DME) Aquacel Extra 2 X 2 " bandage See Rx Instructions .ROUTE .MEDSUPPLY Qty: 10 RF: 0 (DME) Aquacel Extra 4 X 5 " bandage See Rx Instructions .ROUTE .MEDSUPPLY Qty: 5 RF: 0 tamsulosin 0.4 mg capsule 0.4 mg PO QDD RF: 0 Centrum Silver 0.4-300-250 mg-mcg-mcg Tablet 1 tab PO QDL RF: 0 Referrals Referrals: Faiza Aguilar MD [Primary Care Provider] -
[2020-12-14 13:52] LABS: Basophils # (auto) 0.02 K/uL (0-0.2); Basophils % (auto) 0.4 %; Eosinophils # (auto) 0.26 K/uL (0-0.5); Eosinophils % (auto) 5.5 %; Hematocrit (blood only) 33.4 % (42-52); Hemoglobin 11.6 g/dL (14.0-18.0); Immature Granulocytes # (auto) 0.01 K/uL (0.00-0.02); Immature Granulocytes % (auto) 0.2 %; Lymphocytes % (auto) 14.7 %; Mean Corpuscular Hemoglobin 34.6 pg (25-34); Mean Corpuscular Hgb Conc 34.7 g/dL (32-36); Mean Corpuscular Volume 99.7 fL (80-100); Mean Platelet Volume 10.5 fL (7.4-10.4); Monocytes # (auto) 0.28 K/uL (0.11-0.59); Monocytes % (auto) 5.9 %; Neutrophils # (auto) 3.48 K/uL (1.4-6.5); Neutrophils % (auto) 73.3 %; Platelet Count 177 K/uL (130-400); RDW Coefficient of Variation 18.2 % (11.5-14.5); RDW Standard Deviation 65.9 fL (36.4-46.3); Red Blood Count 3.35 M/uL (4.7-6.1); White Blood Count 4.75 K/uL (4.8-10.8)
--- NOTE | 2020-12-14 14:08 | XRay Report ---
SINGLE VIEW CHEST CLINICAL HISTORY: Generalized weakness. FINDINGS: An AP, portable, upright chest radiograph is compared to study dated 11/29/2020 and correlate d with chest CT dated 06/13/2018. The heart is enlarged noting atherosclerotic calcification of the th oracic aorta. There is mild pulmonary vascular congestion. There is postoperative change and mild vol ume loss in the left lung. Suture material projects over the left lower chest. Bibasilar airspace opa cities likely represents scarring/atelectasis. No large pleural effusion or pneumothorax is seen. The skeletal structures are osteopenic. The bony thorax is grossly intact. IMPRESSION: 1. Cardiomegaly with mild pulmonary vasculature congestion. 2. Bibasilar opacities likely represent scarring/atelectasis. Clinical correlation will be required. ACT 112: Negative or not required by law. Electronically signed by: Reji Almonte M.D. 12/14/2020 2:06 PM
[2020-12-14 14:13] LABS: Alanine Aminotransferase 25 U/L (12-78); Albumin Level 3.9 gm/dl (3.4-5.0); Aspartate Aminotransferase 25 U/L (15-37); BUN Creatinine Ratio 55.8 (10-20); Blood Urea Nitrogen 92 mg/dl (7-18); Calcium 9.7 mg/dl (8.5-10.1); Carbon Dioxide 29 mmol/L (21-32); Chloride 86 mmol/L (98-107); Est GFR (African American) 45.1 ml/min; Est GFR (Non-African American) 38.9 ml/min; Glucose 103 mg/dl (70-99); Magnesium 2.3 mg/dl (1.8-2.4); Potassium 3.9 mmol/L (3.5-5.1); Sodium 122 mmol/L (136-145)
[2020-12-14 14:14] LABS: Appearance Urine Cloudy (Clear); Bacteria Urine Automated 4+ (Negative); Bilirubin Urine Negative (Negative); Blood Urine Trace (Negative); Color Urine Yellow; Epithelial Cell Urine Auto 0-5 /lpf (0-5); Glucose Urine UA Negative (Negative); Ketones Urine Negative (Negative); Leukocyte Esterase Urine 3+ (Negative); Nitrite Urine Negative (Negative); Protein Urine Negative (Negative); RBC Urine Automated 0-4 /hpf (0-4); Specific Gravity Urine 1.012 (1.000-1.030); Urobilinogen Urine Negative (Negative); WBC Urine Automated >30 /hpf (0-5); pH Urine 6.5 (4.5-7.5)
[2020-12-14 14:24] LABS: Alkaline Phosphatase 49 U/L (45-117); Creatine Kinase 100 U/L (39-308); Total Protein 7.9 gm/dl (6.4-8.2)
[2020-12-14] MEDS ORDERED: oxyCODONE/ACETAMINOPHEN 5mg/325mg TAB PO STA (14:41)
[2020-12-14] MEDS ORDERED: cefTRIAXone SODIUM 1,000 MG/50 ML BAG IV STA (14:42)
--- NOTE | 2020-12-14 14:49 | CT Scan Report ---
CT head/brain wo con CLINICAL HISTORY: Weakness. COMPARISON STUDY: No previous studies for comparison. TECHNIQUE: Axial CT of the brain is performed from the vertex to the skull base. IV contrast was not administered for this examination. A dose lowering technique was utilized adhering to the principles of ALARA. CT DOSE: 1035.81 mGycm FINDINGS: No intra or extra-axial mass lesions are visualized. There is no CT evidence of acute cortical infarc tion. There is no evidence of midline shift. There is no acute hemorrhage. No calvarial fractures ar e visualized. There are patchy white matter hypodensities likely on a small vessel basis. There is bilateral basal ganglial mineralization There is no evidence of pathologic ventricular dilatation. There is opacification of a single left-sided ethmoid air cell IMPRESSION: No acute intracranial findings ACT 112: Negative or not required by law. Electronically signed by: Manuel Rogers M.D. 12/14/2020 2:48 PM
--- NOTE | 2020-12-14 15:57 | History & Physical Report ---
Date of Service December 14, 2020 Assessment & Plan (1) Acute hyponatremia: Plan: 79 y/o M Hx gout, obese, atrial fibrillation, diastolic CHF, chronic anemia, CKD III, hyponatremia, prostate CA - recently completed radiation therapy. The pt has been complaining of weakness. Routine labs demonstrated worsening hyponatremia with a sodium of 120. A repeat in the ER returned at 122. Labs are additionally notable for a + UA. He does not describe nausea/vomiting/diarrhea or dysuria. It is noted that he was recently switched from Lasix to Bumex by his hand slitter. 1) Hyponatremia is acute on chronic - may be due to his new diuretic and a degree of depletion. He has a tendency t overload quickly. We have provided NS and his volume status will bear monitoring. He may then be a candidate for Tolvaptan. We have consulted nephrology. Serial BMP. 2) UTI - placed on Ceftriaxone - this can certainly contribute to his weakness 3) CHF - we will continue his diuretics as he receives NS 4) AF - slow ventricular response - cont Xarelto 5) Chronic anemia - Hb is at baseline 6) CKD III - renal function is at baseline - his BUN regularly runs in the 100s 7) Gout - takes allopurinol and is prescribed steroids for flares. Full code - Xarelto prophylaxis Total time for this admit including review of labs, meds, imaging, records - discussion with pt and ER attending - 48 min (2) Acute UTI: (3) Chronic diastolic CHF (congestive heart failure): (4) Chronic kidney disease (CKD): History of Present Illness Chief Complaint: Hyponatremia Primary Care Provider: Faiza Aguilar MD 79 y/o M Hx HTN, gout, obese, atrial fibrillation, diastolic CHF, chronic anemia, CKD III, hyponatremia, prostate CA - recently completed radiation therapy. The pt has been complaining of weakness. Routine labs demonstrated worsening hyponatremia with a sodium of 120. A repeat in the ER returned at 122. Labs are additionally notable for a + UA. He does not describe nausea/vomiting/diarrhea or dysuria. It is noted that he was recently switched from Lasix to Bumex by his hand slitter. PMH: 1) HTN 2) Gout 3) Chronic AF - bradycardic at baseline 4) Diastolic CHF 5) Chronic lower extremity edema and ulcers 6) CKD III 7) Normocytic anemia - baseline Hb 10-12 8) Paroxysmal VT 9) Prostate CA - completed radiation 06/2020 10) Lumbar stenosis 11) Morbidly obese 12) Uremia Surgical: 1) BL TKA 2) Cataract 3) Lumbar fusion 4) Lithotripsy Social: Does not drink or smoke - lives with who manages his care Family: Mother - ESRD Father's cause of not known Allergies Allergy/AdvReac Type Severity Reaction Status Date / Time ceftriaxone [From Rocephin] Allergy Mild Rash Verified 12/07/20 14:13 gabapentin Allergy Mild Rash Verified 12/07/20 14:13 pregabalin [From Lyrica] Allergy SUICIDAL Verified 12/07/20 14:13 Home Medications Medication Instructions Recorded Confirmed Type wckocevl-bxv-eadww acid 0.4 1 tab PO QDL 10/16/18 12/14/20 History mg-lycopene 300 mcg-lutein 250 mcg tablet (Centrum Silver) ascorbate calcium-bioflavonoid 1 tab PO QDD tab 07/27/19 12/14/20 History 1,000 mg-200 mg tablet (Shante-C with Bioflavonoids) methylprednisolone 4 mg tablet 4 mg PO DAILY PRN 01/11/20 12/14/20 History spironolactone 25 mg tablet 25 mg PO QDB tab 01/11/20 12/14/20 History tamsulosin 0.4 mg capsule 0.4 mg PO QDD 04/07/20 12/14/20 History calcium carbonate 600 mg calcium 600 mg PO DAILY 04/10/20 12/14/20 History (1,500 mg) tablet (Calcium) potassium chloride 10 mEq 30 meq PO TIDM #500 cap 04/10/20 12/14/20 Rx capsule,extended release atenolol 25 mg tablet 25 mg PO DAILY #90 tab 04/30/20 12/14/20 Rx cholecalciferol (vitamin D3) 25 25 mcg PO DAILY #30 cap 07/12/20 12/14/20 Rx mcg (1,000 unit) capsule hydrocolloid dressing 2" X 2" #10 ea 07/26/20 12/14/20 Rx (Aquacel Extra) hydrocolloid dressing 4" X 5" #5 ea 07/26/20 12/14/20 Rx (Aquacel Extra) rivaroxaban 15 mg tablet (Xarelto) 15 mg PO DAILY #90 tab 08/06/20 12/14/20 Rx leuprolide (3 month) 22.5 mg (3 22.5 mg SUBCUT ONCE #1 ea 09/14/20 12/14/20 Rx month) subcutaneous syringe (Eligard) psyllium husk 3.4 gram/5.4 gram 1 tbsp PO DAILY 10/29/20 12/14/20 History oral powder (Metamucil) fluocinonide 0.05 % topical cream 1 applic TOP DAILY PRN #30 gm 11/05/20 12/14/20 Rx metolazone 2.5 mg tablet 2.5 mg PO Q OTHER DAY 90 Days #45 11/05/20 12/14/20 Rx tab allopurinol 100 mg tablet 200 mg PO QDL #180 tab 11/26/20 12/14/20 Rx bumetanide 2 mg tablet 2 mg PO BID #60 tab 11/29/20 12/14/20 Rx Past Med/Surg History Medical History Ambulatory dysfunction uses a walker and uses a wheel chair Atrial fibrillation (09/06/13) 2013 and takes xarelto Chronic diastolic CHF (congestive heart failure) Chronic kidney disease (CKD) Cor pulmonale, chronic (09/06/13) Gastrointestinal complaints Generalized weakness Hearing deficit Hx of gout Hypertension IPMN (intraductal papillary mucinous neoplasm) Kidney stones Lower extremity edema Lumbar stenosis with neurogenic claudication (09/06/13) Numbness of right foot ANKLE TO BOTTOM OF FOOT Obesity (BMI 30-39.9) Pancreatic cyst Paroxysmal ventricular tachycardia Prostate cancer (06/11/17) Pulmonary hypertension Spinal stenosis of lumbar region Tricuspid regurgitation X-ray of lung, abnormal Surgical History H/O lithotripsy History of back surgery X 3 10/03/13 - I&D Lumbar Spine - Ramos #3, ETT #8.0, Grade 1 View 09/18/13 - I&D Lumbar Spine/Hematoma Evacuation - MAC #4, ETT# 8.0 cuffed, Grade 1 View 09/06/13 - L4-S1 Laminectomy - MAC #4, ETT #8.0 HiLo Oral, Grade 1 View History of cardiac cath 2013 [place] History of cataract surgery BOTH History of colon surgery FOR RUPTURED COLON History of lung surgery FOR SPOT ON LEFT LUNG AND FLUID IN LUNG History of surgical removal of pilonidal cyst History of total left knee replacement History of total right knee replacement Hx of colonoscopy Hx of prostate biopsy NUMEROUS S/P insertion of inferior vena caval filter Family History Mother , 95yo Kidney disease Natural with unknown cause Dementia Father , in his 70s Myocardial infarction Brother Unknown family medical history Brother Unknown family medical history Brother Unknown family medical history Sister Dementia Sister Unknown family medical history Other No pertinent family history Denies family history of Ovarian cancer Prostate cancer Breast cancer Colorectal cancer Social History Smoking Status: Never smoker Second Hand Exposure: No; Hx Alcohol Use: No Hx Substance Use: No Preferred Language: Bermudian Communication Ability: Effective Visual Impairment: No Limitations Hearing Ability: Use of Hearing Aid Housekeeper Caregiver Required: No Beliefs That Will Affect Care: None marital status: Current Living Situation: Spouse Current Living Situation Comment: [facility]. current occupational status: retired Feels Safe at Home: Yes caffeine: No during the past year weight has: remained stable Physical Activity Frequency: Does not Exercise Seatbelt Use: always Assistive Devices: Glasses, Hearing Aid - Bilateral, Walker and Wheelchair Review of Systems Review of Systems: Gen: Denies fevers, night sweats, rigors - describes fatigue/weakness ENT: Denies congestion, throat pain, hearing loss Eyes: Denies acute visual changes CV: Denies CP, palpitations Pulmonary: Denies SOB, cough, wheezing GI: Denies N/V, diarrhea, constipation Neuro: Denies acute or unilateral weakness, acute gait impairment, headache or acute visual changes Musculoskeletal: Chronic LE pain related to edema - difficulty walking due to edema Endocrine: Denies polydipsia, polyuria Skin: Chronic ulcer R [place] which is healing Physical Exam Physical Exam: General: Pleasant, elderly M, AAO x 3, no distress ENT: No erythema or exudates, no thrush Eyes: MELODY, EOMI Head and neck: Normocephalic, atraumatic, No JVD, neck is supple. Chest/heart: Nontender, S1,2, RRR, no murmurs, no gallops Lungs: CTAB, no wheezing or crackles Abdomen: Nontender, nondistended, BS+ Neuro: AAO x 3, speech is clear, no unilateral weakness or loss of sensation, coordination intact Musculoskeletal: + lower extremity edema and stasis changes Skin: Well-healing ulcer on ant of RLE Extremities: No clubbing, cyanosis. + Edema Results & Data Results & Data ([facility]) Vital Signs (Past 12 Hours) Vital Signs Temp Pulse Pulse Resp BP BP Pulse Ox 12/14/20 13:38 53 L 23 121/64 95 12/14/20 13:00 55 L 19 12/14/20 12:56 53 L 20 12/14/20 12:28 98.1 F 55 L 18 107/52 L 97 Code Status & VTE Plan VTE Prophylaxis Plan VTE Prophylaxis will be ordered: Yes PG Care Time/CCT Total # of Minutes Spent Total Time Spent with Patient: Total time spent is greater than 50% in coordination of care (as documented) at patient's floor/unit and/or counseling patient: Coding Level of Care Code 41276 Initial Inpt Care Lvl 3 Diagnoses Acute hyponatremia E87.1 Acute UTI N39.0 Chronic diastolic CHF (congestive heart failure) I50.32 Chronic kidney disease (CKD) N18.9
[2020-12-14] MEDS ORDERED: CIPROFLOXACIN 400MG / 200ML D5W IV ONE (17:52)
[2020-12-14] MEDS ORDERED: ALUMINUM/MAGNESIUM SUSP 30 ML UDC PO PRN (19:33)
[2020-12-14] MEDS: CIPROFLOXACIN / D5W 400 MG/200 ML BAG IV SCH (20:43)
[2020-12-14] MEDS: TAMSULOSIN HCL 0.4 MG CAP PO SCH (20:43)
[2020-12-14] MEDS: POTASSIUM CHLORIDE 10 MEQ TABCR PO SCH (20:43)
[2020-12-14] MEDS: SODIUM CHLORIDE 0.9% 1000ML 1,000 ML IV SCH (20:43)
[2020-12-14 23:14] LABS: Calcium 8.8 mg/dl (8.5-10.1); Creatinine Clr Calc Pharmacy 44.1 ml/min; Est GFR (African American) 46.4 ml/min; Est GFR (Non-African American) 40.1 ml/min; Potassium 3.3 mmol/L (3.5-5.1)
[2020-12-15] MEDS: SPIRONOLACTONE 25 MG TAB PO SCH (07:54)
[2020-12-15] MEDS: POTASSIUM CHLORIDE 10 MEQ TABCR PO SCH ×3 (09:07→16:36)
[2020-12-15] MEDS: ATENOLOL 25 MG TABLET PO SCH (09:07)
[2020-12-15] MEDS: RIVAROXABAN 15 MG TAB PO SCH (09:07)
[2020-12-15] MEDS: BUMETANIDE 1 MG TAB PO SCH ×2 (09:07→16:36)
[2020-12-15] MEDS: PSYLLIUM 58.6% POWDER PACKET PO SCH (09:07)
[2020-12-15] MEDS: CIPROFLOXACIN / D5W 400 MG/200 ML BAG IV SCH ×2 (09:08→20:56)
[2020-12-15] MEDS: SODIUM CHLORIDE 0.9% 1000ML 1,000 ML IV SCH (09:31)
[2020-12-15 09:55] LABS: BUN Creatinine Ratio 52.7 (10-20); Calcium 8.7 mg/dl (8.5-10.1); Creatinine Clr Calc Pharmacy 52.6 ml/min; Est GFR (African American) 57.5 ml/min; Est GFR (Non-African American) 49.6 ml/min; Magnesium 2.1 mg/dl (1.8-2.4); Potassium 3.2 mmol/L (3.5-5.1)
[2020-12-15] MEDS: allopurinoL 100 MG TAB PO SCH (11:17)
--- NOTE | 2020-12-15 12:12 | Nephrology Consultation ---
Date of Consultation December 15, 2020 Assessment & Plan (1) Acute hyponatremia: Acute hyponatremia with history of chronic hyponatremia in the setting of diastolic CHF. serum sodium generally stays around 124 to 130s, on admission sodium was 120 which a improved to 126 and staying relatively stable. Clinically otherwise asymptomatic, blood pressure acceptable. Has been on IV normal saline since admission and some concern for volume overload. renal function staying relatively stable. -- discontinue IV fluid, continue on Bumex 2 mg twice a day -- repeat serum sodium in 4 hours -- repeat urine osmolality in a.m., if urine osmolality remains elevated, will consider tolvaptan however, hold for now. will follow Thank you for allowing me to participate in your patient's care. It was a pleasure to see the Mauricio (2) Lower extremity edema: (3) Chronic diastolic CHF (congestive heart failure): (4) Stage 3b chronic kidney disease: History of Present Illness Attending Physician: Tanner Meyers History of Present Illness Mr. Mauricio Lundberg is a 79-year-old male with Stage 3B/4CKD, JAMILA, pulmonary hypertension, diastolic CHF and hypertension admitted with hyponatremia. Nephrology consult requested to manage hyponatremia. EMR records are reviewed in detail during patient's visit. Mauricio was admitted to the hospital yesterday after outpatient lab showed hyponatremia. He has been having chronic hyponatremia with serum sodium 124 to 130s. Outpatient follow-up lab showed sodium 120 and he was advised to go to ER. Lab in year showed sodium 122. He was otherwise asymptomatic except some generalized weakness. Received Lasix 20 mg IV in ER. she was also continued on Bumex 2 mg orally twice daily. Workup including chest x-ray CT head was unremarkable. Recent TSH was normal. Urine osmolality 382. Uric acid normal. Blood pressure has been relatively stable. he reports normal p.o. intake prior to hospitalization. Denies NSAID use. Sodium improved to 126 this morning. He also reports voiding normally at home. Past medical history also significant for stage III B/ 4 CKD, b/l cr around 2.0 milligrams/deciliter. CKD most likely secondary to combination of factors including prior AK I, cardiorenal syndrome with chronic diastolic dysfunction requiring high dose of diuretics. has chronic CHF with diastolic dysfunction, EF 50-55, follows with [facility], estimated dry weight is 235 lb, recently diuretics was changed to Bumex 2 mg twice a day and metolazone 2.5 mg 3 times a week. Prior h/o right hydronephrosis for 6 mm right mid ureter stone s/p ureteral stent and ESWL. Diagnosed with prostate cancer on 06/11/2019, treated with radiation, currently follows with urology clinic regarding prostate cancer observational management. mom had history of kidney disease. Never smoker. Retired, lives with . Medical history also notable for hypertension, atrial fibrillation on anticoagulation with Xarelto, JAMILA/obesity hypoventilation and pulmonary hypertension. h/o pulmonary embolus in 2006. He denies chest pain or palpitations, he denies significant orthopnea or shortness of breath. His weight currently seems close to his baseline. Allergies Allergy/AdvReac Type Severity Reaction Status Date / Time ceftriaxone [From Rocephin] Allergy Mild Rash Verified 12/07/20 14:13 gabapentin Allergy Mild Rash Verified 12/07/20 14:13 pregabalin [From Lyrica] Allergy SUICIDAL Verified 12/07/20 14:13 Home Medications Medication Instructions Recorded Confirmed Type [id number]-hxy-nfpop acid 0.4 1 tab PO QDL 10/16/18 12/14/20 History mg-lycopene 300 mcg-lutein 250 mcg tablet (Centrum Silver) ascorbate calcium-bioflavonoid 1 tab PO QDD tab 07/27/19 12/14/20 History 1,000 mg-200 mg tablet (Shante-C with Bioflavonoids) methylprednisolone 4 mg tablet 4 mg PO DAILY PRN 01/11/20 12/14/20 History spironolactone 25 mg tablet 25 mg PO QDB tab 01/11/20 12/14/20 History tamsulosin 0.4 mg capsule 0.4 mg PO QDD 04/07/20 12/14/20 History calcium carbonate 600 mg calcium 600 mg PO DAILY 04/10/20 12/14/20 History (1,500 mg) tablet (Calcium) potassium chloride 10 mEq 30 meq PO TIDM #500 cap 04/10/20 12/14/20 Rx capsule,extended release atenolol 25 mg tablet 25 mg PO DAILY #90 tab 04/30/20 12/14/20 Rx cholecalciferol (vitamin D3) 25 25 mcg PO DAILY #30 cap 07/12/20 12/14/20 Rx mcg (1,000 unit) capsule hydrocolloid dressing 2" X 2" #10 ea 07/26/20 12/14/20 Rx (Aquacel Extra) hydrocolloid dressing 4" X 5" #5 ea 07/26/20 12/14/20 Rx (Aquacel Extra) rivaroxaban 15 mg tablet (Xarelto) 15 mg PO DAILY #90 tab 08/06/20 12/14/20 Rx leuprolide (3 month) 22.5 mg (3 22.5 mg SUBCUT ONCE #1 ea 09/14/20 12/14/20 Rx month) subcutaneous syringe (Eligard) psyllium husk 3.4 gram/5.4 gram 1 tbsp PO DAILY 10/29/20 12/14/20 History oral powder (Metamucil) fluocinonide 0.05 % topical cream 1 applic TOP DAILY PRN #30 gm 11/05/20 12/14/20 Rx metolazone 2.5 mg tablet 2.5 mg PO Q OTHER DAY 90 Days #45 11/05/20 12/14/20 Rx tab allopurinol 100 mg tablet 200 mg PO QDL #180 tab 11/26/20 12/14/20 Rx bumetanide 2 mg tablet 2 mg PO BID #60 tab 11/29/20 12/14/20 Rx Patient History Medical History (Updated 12/15/20 @ 12:35 by Fabi Mendoza MD) Ambulatory dysfunction uses a walker and uses a wheel chair Atrial fibrillation (09/06/13) 2013 and takes xarelto Chronic diastolic CHF (congestive heart failure) Chronic kidney disease (CKD) Cor pulmonale, chronic (09/06/13) Gastrointestinal complaints Generalized weakness Hearing deficit Hx of gout Hypertension IPMN (intraductal papillary mucinous neoplasm) Kidney stones Lower extremity edema Lumbar stenosis with neurogenic claudication (09/06/13) Numbness of right foot ANKLE TO BOTTOM OF FOOT Obesity (BMI 30-39.9) Pancreatic cyst Paroxysmal ventricular tachycardia Prostate cancer (06/11/17) Pulmonary hypertension Spinal stenosis of lumbar region Stage 3b chronic kidney disease Tricuspid regurgitation X-ray of lung, abnormal Surgical History H/O lithotripsy History of back surgery X 3 10/03/13 - I&D Lumbar Spine - Ramos #3, ETT #8.0, Grade 1 View 4/27/14 - I&D Lumbar Spine/Hematoma Evacuation - MAC #4, ETT# 8.0 cuffed, Grade 1 View 09/06/13 - L4-S1 Laminectomy - MAC #4, ETT #8.0 HiLo Oral, Grade 1 View History of cardiac cath 2013 ALEXANDER History of cataract surgery BOTH History of colon surgery FOR RUPTURED COLON History of lung surgery FOR SPOT ON LEFT LUNG AND FLUID IN LUNG History of surgical removal of pilonidal cyst History of total left knee replacement History of total right knee replacement Hx of colonoscopy Hx of prostate biopsy NUMEROUS S/P insertion of inferior vena caval filter Family History Mother , 95yo Kidney disease Natural with unknown cause Dementia Father , in his 70s Myocardial infarction Brother Unknown family medical history Brother Unknown family medical history Brother Unknown family medical history Sister Dementia Sister Unknown family medical history Other No pertinent family history Denies family history of Ovarian cancer Prostate cancer Breast cancer Colorectal cancer Social History Smoking Status: Never smoker Second Hand Exposure: No; Hx Alcohol Use: No Hx Substance Use: No Preferred Language: British Communication Ability: Effective Visual Impairment: No Limitations Hearing Ability: Use of Hearing Aid Conference Translator Required: No Beliefs That Will Affect Care: None marital status: Current Living Situation: Spouse Current Living Situation Comment: [facility]. current occupational status: retired Feels Safe at Home: Yes caffeine: No during the past year weight has: remained stable Physical Activity Frequency: Does not Exercise Seatbelt Use: always Assistive Devices: Contacts and Walker Physical Exam Constitutional: WD/WN, vitals as above well developed and well nourished; no acute distress Eyes: PERRL, conjunctivae normal, anicteric sclerae ENMT: external ear and nose normal, oropharynx normal Ears: no hearing impairment Neck: trachea midline Respiratory: normal respiratory effort, lungs clear to auscultation no cough Auscultation: + crackles and + rales; no wheezes Cardiovascular: Rate/Rhythm: regular rate and regular rhythm Extremities: + edema Gastrointestinal (Abdomen): normal bowel sounds, soft, nontender, no hepatosplenomegaly Percussion/Palpation: abdomen nontender, no guarding and abdomen not rigid Musculoskeletal: Extremities: extremities normal to inspection Gait: normal gait Skin: no rashes, warm and dry Neurologic: moves all extremities and awake Psychiatric: A+Ox3, euthymic affect Results & Data ([facility]) Vital Signs (Past 12 Hours) Vital Signs Temp Pulse Resp BP Pulse Ox 12/15/20 12:00 36.6 C 51 L 18 116/58 L 98 12/15/20 08:04 36.4 C L 55 L 20 125/55 L 100 12/15/20 02:59 36.5 C 56 L 20 121/61 98 PG Care Time/CCT Total # of Minutes Spent Total Time Spent with Patient: Total time spent is greater than 50% in coordination of care (as documented) at patient's floor/unit and/or counseling patient: Coding Level of Care Code 22588 Office/OBS Consult Lvl 5 Diagnoses Acute hyponatremia E87.1 Lower extremity edema R60.0 Chronic diastolic CHF (congestive heart failure) I50.32 Stage 3b chronic kidney disease N18.32
[2020-12-15] MEDS ORDERED: POTASSIUM CHLORIDE CRTAB 20 MEQ TABCR PO STA (12:44)
[2020-12-15] MEDS: TAMSULOSIN HCL 0.4 MG CAP PO SCH (16:36)
--- NOTE | 2020-12-15 22:43 | Hospitalist Progress Note ---
Date of Service December 15, 2020 Assessment & Plan (1) Acute hyponatremia: Plan: Low of 120 at presentation. Likely contributed heavily to his acute weakness at home. May be playing some role in altered mental status. Has been off/on low for several months or longer. Urine Na is very low c/w solute depletion in setting of chronic, heavy diuretic usage and heavily restricted salt intake ( confirms he eats nothing with salt). CKD and CHF also contributing to low Na at baseline. Appreciate nephrology consult. Agree with no further IVF. Agree with resuming bumex. Agree with probable trial of tolvaptan. Ideally Na level sits low 130s but his Na issue will be hard to manage given his complex diuretic usage. Serial BMPs. (2) Acute UTI: Plan: GNR. allergy to rocephin thus cipro IV being employed. continue such; follow culture. will need BEATRIZ -- r/o prostatitis. gar due to frequent soiling/incontinence. (3) Acute on chronic diastolic (congestive) heart failure: Plan: last echo with preserved EF and preserved RV function. follows with CHF clinic. remains on atenolol. was taking aldactone, zaroxylyn QOD, and recent switch from lasix to bumex. cont aldactone. resume bumex 2mg BID. holding zaroxylyn. he examines mildly volume overloaded today despite his low Na and solute deficiency. (4) Stage 3b chronic kidney disease: Plan: daily BMP (5) Atrial fibrillation: Plan: permanent cont xarelto cont atenolol telemetry (6) Pulmonary hypertension: Plan: severe on last echo 2nd to long-standing JAMILA? no known lung disease no prior PEs (7) Hypertension: Plan: BPs acceptable cont current meds (8) Memory loss: Plan: I am not aware that Lupron causes such. most recent B12 and TSH were wnl. CT head this admission wnl. the memory loss seems relatively new - perhaps several months in duration. due to hypoxia? due to low Na? given right-heart CHF findings on exam - could he have elevated ammonia? will check in am. (9) BPH NOS w ur obs/LUTS: Plan: flomax place gar needs BEATRIZ - r/o prostatitis (10) Hypokalemia: Plan: 2nd to heavy diuretic usage (thiazide use, and loop diuretic use) replace bmp am Plan: will need PT/OT updated at bedside Admission and Anticipated Discharge Date Admission Date: December 14, 2020 Subjective during my visit pt's at bedside she does most of the talking as patient has cognitive impairment at baseline when asked directly how he feels he repeatedly says "on a scale of 1-10? maybe a..." for his answers. during the visit he was on NC o2 and they both state he is not on continuous NC O2 at home. states "he has been so weak - and he wasn't eating" (at home). asked multiple times if I thought his Lupron injections for prostate cancer caused memory loss?? patient denied any chest pain or abd pain. staff report frequent episodes of urinary incontinence and soiling the bed. Review of Systems Constitutional: + fatigue and + anorexia; no fever, no chills and no body aches Respiratory: + dyspnea on exertion Cardiovascular: + orthopnea; no chest pain and no dyspnea at rest Gastrointestinal: no abdominal pain Neurologic: + memory loss Physical Exam Physical Exam: gen - poor historian, obese, NAD, nontoxic mouth - MMM neck - mild JVD noted heart - irregular, s1 s2 lungs - bibasilar rales, no distress abd - obese, mildly distended, BS+, NT ext - trace edema b/l, pulses 2+ b/l neuro - no asterixis skin - stasis changes b/l legs Results & Data Results & Data ([facility]) Vital Signs (Past 12 Hours) Vital Signs Temp Pulse Pulse Resp BP Pulse Ox 12/15/20 20:03 36.6 C 81 20 145/67 H 96 12/15/20 15:51 36.5 C 57 L 22 148/75 H 99 12/15/20 14:56 54 L 12/15/20 12:00 36.6 C 51 L 18 116/58 L 98 Laboratory Results Laboratory Results - last 24 hr 12/14/20 12/15/20 12/15/20 22:20 09:18 10:04 Sodium 126 L 126 L Potassium 3.3 L D 3.2 L Chloride 90 L 91 L Carbon Dioxide 30 28 Anion Gap 6.0 8.0 BUN 87 H 71 H Creatinine 1.61 H 1.35 Est Cr Clr Drug Dosing 44.1 52.6 Est GFR ( Amer) 46.4 57.5 Est GFR (Non-Af Amer) 40.1 49.6 BUN/Creatinine Ratio 54.0 H 52.7 H Glucose 150 H 137 H Osmolality 292 Uric Acid 5.0 Calcium 8.8 8.7 Magnesium 2.1 Urine Osmolality Ur Random Sodium 12/15/20 12/15/20 12/15/20 11:10 11:10 16:42 Sodium 126 L Potassium Chloride Carbon Dioxide Anion Gap BUN Creatinine Est Cr Clr Drug Dosing Est GFR ( Amer) Est GFR (Non-Af Amer) BUN/Creatinine Ratio Glucose Osmolality Uric Acid Calcium Magnesium Urine Osmolality 382 L Ur Random Sodium 6 Diagnostic Findings urine cx - >100,000 CFU GNR PG Care Time/CCT Total # of Minutes Spent Total Time Spent with Patient: Total time spent is greater than 50% in coordination of care (as documented) at patient's floor/unit and/or counseling patient: Coding Level of Care Code 24352 Subseq Hosp Care Lvl 3 Diagnoses Acute hyponatremia E87.1 Acute UTI N39.0 Stage 3b chronic kidney disease N18.32 Atrial fibrillation I48.21 Atrial fibrillation type: permanent Pulmonary hypertension I27.20 Hypertension I10 Memory loss R41.3 BPH NOS w ur obs/LUTS N40.1 Acute on chronic diastolic (congestive) heart failure I50.33 Hypokalemia E87.6 (1) Atrial fibrillation Atrial fibrillation type: permanent Qualified Code(s): I48.21 - Permanent atrial fibrillation
[2020-12-16] MEDS ORDERED: TOLVAPTAN 15 MG TABLET PO STA (00:23)
[2020-12-16 08:32] LABS: Hematocrit (blood only) 34.4 % (42-52); Hemoglobin 11.3 g/dL (14.0-18.0); Mean Corpuscular Hemoglobin 33.6 pg (25-34); Mean Corpuscular Hgb Conc 32.8 g/dL (32-36); Mean Corpuscular Volume 102.4 fL (80-100); Mean Platelet Volume 9.6 fL (7.4-10.4); Platelet Count 152 K/uL (130-400); RDW Coefficient of Variation 18.1 % (11.5-14.5); RDW Standard Deviation 68.1 fL (36.4-46.3); Red Blood Count 3.36 M/uL (4.7-6.1); White Blood Count 5.94 K/uL (4.8-10.8)
[2020-12-16 09:04] LABS: Albumin Level 3.5 gm/dl (3.4-5.0); BUN Creatinine Ratio 51.3 (10-20); Calcium 8.9 mg/dl (8.5-10.1); Creatinine Clr Calc Pharmacy 60.6 ml/min; Est GFR (African American) 67.6 ml/min; Est GFR (Non-African American) 58.3 ml/min; Phosphorus 2.9 mg/dl (2.5-4.9); Potassium 3.7 mmol/L (3.5-5.1)
[2020-12-16] MEDS: CIPROFLOXACIN / D5W 400 MG/200 ML BAG IV SCH (09:23)
[2020-12-16] MEDS: POTASSIUM CHLORIDE 10 MEQ TABCR PO SCH ×3 (09:23→17:25)
[2020-12-16] MEDS: BUMETANIDE 1 MG TAB PO SCH (09:24)
[2020-12-16] MEDS: SPIRONOLACTONE 25 MG TAB PO SCH (09:24)
[2020-12-16] MEDS: RIVAROXABAN 15 MG TAB PO SCH (09:24)
[2020-12-16] MEDS: ATENOLOL 25 MG TABLET PO SCH (09:24)
[2020-12-16] MEDS: PSYLLIUM 58.6% POWDER PACKET PO SCH (09:25)
--- NOTE | 2020-12-16 11:04 | Nephrology Progress Note ---
Date of Service December 16, 2020 Assessment & Plan (1) Acute hyponatremia: Plan: Acute hyponatremia with history of chronic hyponatremia in the setting of diastolic CHF. serum sodium generally stays around 124 to 130s, on admission sodium was 120 which a improved to 126 and staying relatively stable. Clinically otherwise asymptomatic, blood pressure acceptable. Has been on IV normal saline since admission and some concern for volume overload. renal function staying relatively stable. Na 129 after Tolvaptan 15 mg last night but U osm still 370 -- repeat Na in afternoon, if still less than 130, give another dose of Tolvaptan 15, continue on Bumex 2 mg twice a day -- repeat urine osmolality in a.m. will follow (2) Lower extremity edema: (3) Chronic diastolic CHF (congestive heart failure): (4) Stage 3b chronic kidney disease: Admission and Anticipated Discharge Date Admission Date: December 14, 2020 Subjective Mauricio has been overall feeling better, denies any specific symptom. No shortness of breath or chest pain. Urine output improved after 1 dose of tolvaptan and sodium improved to 129 however urine osmolality still elevated. Renal function stable. Review of Systems Review of Systems: Otherwise unremarkable. Physical Exam Constitutional: well developed and well nourished; no acute distress Respiratory: normal respiratory effort, lungs clear to auscultation Cardiovascular: RRR, no murmur, no edema Neurologic: moves all extremities and awake; not confused Psychiatric: A+Ox3, euthymic affect Results & Data ([facility]) Vital Signs (Past 12 Hours) Vital Signs Temp Pulse Resp BP Pulse Ox 12/16/20 07:51 36.9 C 59 L 20 138/75 99 12/16/20 04:14 36.6 C 60 18 144/76 H 99 12/16/20 03:45 36.3 C L 55 L 22 131/81 98 12/15/20 23:30 36.3 C L 58 L 18 120/62 94 PG Care Time/CCT Total # of Minutes Spent Total Time Spent with Patient: Total time spent is greater than 50% in coordination of care (as documented) at patient's floor/unit and/or counseling patient: Coding Level of Care Code 80521 Subseq Hosp Care Lvl 2 Diagnoses Acute hyponatremia E87.1 Lower extremity edema R60.0 Chronic diastolic CHF (congestive heart failure) I50.32 Stage 3b chronic kidney disease N18.32
[2020-12-16] MEDS: allopurinoL 100 MG TAB PO SCH (12:25)
[2020-12-16] MEDS ORDERED: BUMETANIDE 2 MG in SYRINGE 0 ML IV SCH (17:00)
[2020-12-16] MEDS ORDERED: TOLVAPTAN 15 MG TABLET PO ONE (17:15)
[2020-12-16] MEDS: TAMSULOSIN HCL 0.4 MG CAP PO SCH (17:25)
--- NOTE | 2020-12-16 23:13 | Hospitalist Progress Note ---
Date of Service December 16, 2020 Assessment & Plan (1) Acute hyponatremia: Plan: IMPROVED. Low of 120 at presentation. Now 129. s/p tolvaptan overnight. Dr Mendoza to give additional dose of tolvaptan later today. Low Na likely contributed heavily to his acute weakness and confusion at home. May be playing some role in altered mental status. Has been off/on low for several months or longer. Urine Na is very low c/w solute depletion in setting of chronic, heavy diuretic usage and heavily restricted salt intake ( confirms he eats nothing with salt). CKD and CHF also contributing to low Na at baseline. Appreciate nephrology consult. Ideally Na level sits low 130s but his Na issue will be hard to manage given his complex diuretic usage. Serial daily BMPs. (2) Acute UTI: Plan: initially was growing a GNR, but final culture result was contaminated. his initial ua showed 4+ bacteria and he had severe incontinence prior to gar insertion. I DO suspect he has UTI. needs BEATRIZ -- r/o prostatitis. cont gar. despite neg urine cx would continue Rx with cipro orally. (3) Acute on chronic diastolic (congestive) heart failure: Plan: last echo with preserved EF and preserved RV function. follows with CHF clinic. remains on atenolol. was taking aldactone, zaroxylyn QOD, and bumex prior to admission. resumed bumex 2mg BID but I held his PM dose today and gave 2mg IV of bumex to enhance his diuresis --- re-eval for ongoing use of IV bumex tomorrow. holding zaroxylyn. cont aldactone. dry weight ~105 kg ?? (4) Stage 3b chronic kidney disease: Plan: daily BMP Cr today 1.1 after placing gar, with-holding diuretics for a few days, etc (5) Atrial fibrillation: Plan: permanent cont xarelto cont atenolol telemetry (6) Pulmonary hypertension: Plan: severe on last echo 2nd to long-standing JAMILA? no known lung disease no prior PEs (7) Hypertension: Plan: BPs acceptable cont current meds (8) Memory loss: Plan: Most recent B12 and TSH were wnl. CT head this admission wnl. ammonia level wnl. the memory loss seems relatively new - perhaps several months in duration. due to hypoxia? due to low Na? other? Pt's inquired if Lupron can cause memory disturbance. in 6% of Lupron users they experience such. I do not know how long the memory issues can last for in the setting of lupron. (9) BPH NOS w ur obs/LUTS: Plan: flomax placed gar 12/15 needs BEATRIZ - r/o prostatitis (10) Hypokalemia: Plan: 2nd to heavy diuretic usage resolved bmp am Plan: PT, OT alexandre completed - PT recommending rehab (he is 2+ assist) extensively updated at bedside today Admission and Anticipated Discharge Date Admission Date: December 14, 2020 Subjective tele a.fib - rates controlled patient lying in bed comfortably at bedside she feels that he looks better today he agrees w/ his that he is somewhat improved but still feels tired and still has poor appetite he was noted to be coughing during the visit also feels his mentation is better today ultimately patient needed gar insertion yesterday evening since insertion he has put out 2000 cc of urine Review of Systems Review of Systems: gen - fatigue CV - no chest pain pulm - positive for cough, wheeze, dyspnea GI - no abd pain, nausea or emesis Physical Exam Physical Exam: gen - poor historian although he is a bit less confused today, obese, NAD, nontoxic mouth - MMM neck - mild JVD noted heart - irregular, s1 s2 lungs - bibasilar rales with wheezes, no distress abd - obese, mildly distended, BS+, NT ext - trace edema b/l, pulses 2+ b/l skin - stasis changes b/l legs Results & Data Results & Data ([facility]) Vital Signs (Past 12 Hours) Vital Signs Temp Pulse Pulse Resp BP Pulse Ox 12/16/20 19:00 36.8 C 69 20 146/65 H 99 12/16/20 15:42 36.8 C 55 L 20 127/69 100 12/16/20 15:26 60 12/16/20 11:17 36.8 C 50 L 18 123/67 100 Laboratory Results Laboratory Results - last 24 hr 12/16/20 12/16/20 12/16/20 05:40 08:20 08:20 WBC 5.94 RBC 3.36 L Hgb 11.3 L Hct 34.4 L MCV 102.4 H MCH 33.6 MCHC 32.8 RDW Std Deviation 68.1 H RDW Coeff of Anthony 18.1 H Plt Count 152 MPV 9.6 Sodium 129 L Potassium 3.7 D Chloride 95 L Carbon Dioxide 29 Anion Gap 5.0 BUN 61 H Creatinine 1.18 Est Cr Clr Drug Dosing 60.6 Est GFR ( Amer) 67.6 Est GFR (Non-Af Amer) 58.3 BUN/Creatinine Ratio 51.3 H Glucose 133 H Calcium 8.9 Phosphorus 2.9 Ammonia Albumin 3.5 Urine Osmolality 373 L 12/16/20 12/16/20 08:20 16:03 WBC RBC Hgb Hct MCV MCH MCHC RDW Std Deviation RDW Coeff of Anthony Plt Count MPV Sodium 129 L Potassium Chloride Carbon Dioxide Anion Gap BUN Creatinine Est Cr Clr Drug Dosing Est GFR ( Amer) Est GFR (Non-Af Amer) BUN/Creatinine Ratio Glucose Calcium Phosphorus Ammonia 14.0 Albumin Urine Osmolality PG Care Time/CCT Total # of Minutes Spent Total Time Spent with Patient: Total time spent is greater than 50% in coordination of care (as documented) at patient's floor/unit and/or counseling patient: Coding Level of Care Code 31701 Subseq Hosp Care Lvl 3 Diagnoses Acute hyponatremia E87.1 Acute UTI N39.0 Acute on chronic diastolic (congestive) heart failure I50.33 Stage 3b chronic kidney disease N18.32 Atrial fibrillation I48.21 Atrial fibrillation type: permanent Pulmonary hypertension I27.20 Hypertension I10 Memory loss R41.3 BPH NOS w ur obs/LUTS N40.1 Hypokalemia E87.6 (1) Atrial fibrillation Atrial fibrillation type: permanent Qualified Code(s): I48.21 - Permanent atrial fibrillation
[2020-12-17 07:56] LABS: Albumin Level 3.2 gm/dl (3.4-5.0); BUN Creatinine Ratio 44.5 (10-20); Calcium 8.7 mg/dl (8.5-10.1); Creatinine Clr Calc Pharmacy 52.8 ml/min; Est GFR (African American) 57.5 ml/min; Est GFR (Non-African American) 49.6 ml/min; Phosphorus 2.8 mg/dl (2.5-4.9)
[2020-12-17] MEDS: SPIRONOLACTONE 25 MG TAB PO SCH (08:41)
[2020-12-17] MEDS: POTASSIUM CHLORIDE 10 MEQ TABCR PO SCH ×3 (08:41→16:40)
[2020-12-17] MEDS: PSYLLIUM 58.6% POWDER PACKET PO SCH (08:42)
[2020-12-17] MEDS: ATENOLOL 25 MG TABLET PO SCH (08:42)
[2020-12-17] MEDS: RIVAROXABAN 15 MG TAB PO SCH (08:42)
[2020-12-17] MEDS ORDERED: BUMETANIDE 2 MG in SYRINGE 0 ML IV ONE (08:45)
[2020-12-17] MEDS: SODIUM CHLORIDE 1 GM TABLET PO SCH ×2 (10:35→22:04)
[2020-12-17] MEDS: BUMETANIDE 1 MG TAB PO SCH ×2 (10:36→16:39)
--- NOTE | 2020-12-17 10:42 | Nephrology Progress Note ---
Date of Service December 17, 2020 Assessment & Plan (1) Acute hyponatremia: Plan: Acute hyponatremia with history of chronic hyponatremia in the setting of diastolic CHF. serum sodium generally stays around 124 to 130s, on admission sodium was 120 which a improved to 126 and staying relatively stable. Clinically otherwise asymptomatic, blood pressure acceptable. Has been on IV normal saline since admission and some concern for volume overload. renal function staying relatively stable. Na staying around 128-129 after 2 doses of Tolvaptan 15 mg, U osm started to decrease to less than 270, urine output improved and net negative more than 1.5 L -- resume Bumex at 1 mg p.o. b.i.d., start on oral salt tablet 1 g twice a day -- repeat serum sodium this afternoon urine osmolality in a.m. will follow (2) Lower extremity edema: (3) Chronic diastolic CHF (congestive heart failure): (4) Stage 3b chronic kidney disease: Admission and Anticipated Discharge Date Admission Date: December 14, 2020 Cookie Martínez was seen and examined in his room this morning. He seems somewhat lethargic today and reports some difficulty in breathing this morning but overall otherwise clinically about same. Review of Systems Review of Systems: detailed review of system was otherwise unremarkable. Physical Exam Constitutional: + ill appearing; no acute distress Respiratory: Auscultation: + diminished lung sounds ( Left base) Cardiovascular: RRR, no murmur, no edema Neurologic: moves all extremities and awake; not confused Psychiatric: A+Ox3, euthymic affect Results & Data ([facility]) Vital Signs (Past 12 Hours) Vital Signs Temp Pulse Pulse Resp BP Pulse Ox 12/17/20 08:13 66 12/17/20 08:08 36.6 C 59 L 20 109/62 97 12/17/20 04:00 36.4 C L 60 18 119/65 99 12/16/20 22:40 36.4 C L 66 18 111/65 99 PG Care Time/CCT Total # of Minutes Spent Total Time Spent with Patient: Total time spent is greater than 50% in coordination of care (as documented) at patient's floor/unit and/or counseling patient: Coding Level of Care Code 62137 Subseq Hosp Care Lvl 3 Diagnoses Acute hyponatremia E87.1 Lower extremity edema R60.0 Chronic diastolic CHF (congestive heart failure) I50.32 Stage 3b chronic kidney disease N18.32
[2020-12-17 11:51] LABS: Potassium 4.3 mmol/L (3.5-5.1)
[2020-12-17] MEDS: allopurinoL 100 MG TAB PO SCH (12:22)
--- NOTE | 2020-12-17 12:44 | Hospitalist Progress Note ---
Date of Service December 17, 2020 Assessment & Plan (1) Acute hyponatremia: Plan: IMPROVED. Low of 120 at presentation. Now 128-129 over last 24 hours. s/p tolvaptan - multiple doses. Low Na likely contributed heavily to his acute weakness and confusion at home. May be playing some role in altered mental status. Has been off/on low for several months or longer. Urine Na is very low c/w solute depletion in setting of chronic, heavy diuretic usage and heavily restricted salt intake ( confirms he eats nothing with salt). CKD and CHF also contributing to low Na at baseline. Appreciate nephrology consult. Ideally Na level sits low 130s but his Na issue will be hard to manage given his complex diuretic usage. Check serum Na 1-2x's daily. (2) Acute respiratory failure with hypoxia: Plan: 2nd to pulmonary edema from decompensated CHF. Cont NC O2. Diurese as tolerated. (3) Acute on chronic diastolic (congestive) heart failure: Plan: last echo with preserved EF and preserved RV function. follows with CHF clinic. remains on atenolol. was taking aldactone, zaroxylyn QOD, and bumex prior to admission. clinically appears volume overloaded today despite bumex 2mg IV x 1 yesterday evening. will give another IV dose now. repeat cxr. dry weight - 105Kg? lower? (4) Acute UTI: Plan: initially was growing a GNR, but final culture result was contaminated. his initial ua showed 4+ bacteria and he had severe incontinence prior to gar insertion. I DO suspect he has UTI. needs BEATRIZ -- r/o prostatitis - will perform this today. even if no prostatitis would treat empirically for about 1 week w/ abx. cont gar. (5) Stage 3b chronic kidney disease: Plan: daily BMP Cr today 1.3 (6) Atrial fibrillation: Plan: permanent cont xarelto cont atenolol cont telemetry controlled (7) Pulmonary hypertension: Plan: severe on last echo 2nd to long-standing JAMILA? no known lung disease no prior PEs he will need to be assessed for ambulatory O2 at discharge (8) Hypertension: Plan: BPs acceptable cont current meds (9) Memory loss: Plan: Most recent B12 and TSH were wnl. CT head this admission wnl. ammonia level wnl. the memory loss seems relatively new - perhaps several months in duration. due to hypoxia? due to low Na? other? Pt's inquired if Lupron can cause memory disturbance. in 6% of Lupron users they experience such. I do not know how long the memory issues can last for in the setting of lupron. either way he seems to have superimposed delirium/encephalopathy - supportive c are. consider checking VBG w/ next blood draw to ensure no CO2 retention. (10) BPH NOS w ur obs/LUTS: Plan: flomax placed gar 12/15 needs BEATRIZ - r/o prostatitis (11) Hypokalemia: Plan: 2nd to heavy diuretic usage resolved (12) Aspiration of liquid: Plan: palak aspiration with water during my rounds I spoke with speech therapy and they will consult Plan: PT, OT alexandre completed - PT recommending rehab (he is 2+ assist) extensively updated at bedside yesterday Admission and Anticipated Discharge Date Admission Date: December 14, 2020 Subjective tele overnight - a.fib, rates mainly 70s patient sitting in chair by the window when I arrived he c/o feeling cold he asked for a sip of water I offered him his water thermos; took a small sip from the straw and immediately had palak aspiration with regurgitation of foamy spit, cough, wheezing, throat clearing, etc he denied having swallowing troubles at home he continues to feel poorly with fatigue, anorexia, and dyspnea Review of Systems Review of Systems: general: fatigue, weakness cardio: no chest pain pulm: wheezing, mild cough, dyspnea GI: no abd pain, nausea, emesis Physical Exam Physical Exam: gen - obese, was comfortable until he had the aspiration episode mouth - MMM neck - mild JVD heart - irregular, s1 s2, no murmur lungs - bibasilar rales with wheezes (extensive); decreased BS bases; mild tachypnea during his aspiration spell abd - obese, mildly distended, BS+, NT ext - trace edema b/l, pulses 2+ b/l skin - stasis changes b/l legs psych - knew the year and that he was in hospital but thought it was December 27 Results & Data Results & Data ([facility]) Vital Signs (Past 12 Hours) Vital Signs Temp Pulse Pulse Resp BP Pulse Ox 12/17/20 11:20 36.6 C 62 22 144/77 H 98 07/26/21 08:13 66 12/17/20 08:08 36.6 C 59 L 20 109/62 97 12/17/20 04:00 36.4 C L 60 18 119/65 99 Laboratory Results Laboratory Results - last 24 hr 12/16/20 12/17/20 12/17/20 16:03 05:20 06:55 Sodium 129 L 128 L Potassium 4.3 D Chloride 94 L Carbon Dioxide 31 Anion Gap 3.0 BUN 60 H Creatinine 1.35 Est Cr Clr Drug Dosing 52.8 Est GFR ( Amer) 57.5 Est GFR (Non-Af Amer) 49.6 BUN/Creatinine Ratio 44.5 H Glucose 116 H Calcium 8.7 Phosphorus 2.8 Albumin 3.2 L Urine Osmolality 267 L 12/17/20 12:08 Sodium Pending Potassium Chloride Carbon Dioxide Anion Gap BUN Creatinine Est Cr Clr Drug Dosing Est GFR ( Amer) Est GFR (Non-Af Amer) BUN/Creatinine Ratio Glucose Calcium Phosphorus Albumin Urine Osmolality PG Care Time/CCT Total # of Minutes Spent Total Time Spent with Patient: Total time spent is greater than 50% in coordination of care (as documented) at patient's floor/unit and/or counseling patient: Coding Level of Care Code 99103 Subseq Hosp Care Lvl 3 Diagnoses Acute hyponatremia E87.1 Acute UTI N39.0 Acute on chronic diastolic (congestive) heart failure I50.33 Stage 3b chronic kidney disease N18.32 Atrial fibrillation I48.21 Atrial fibrillation type: permanent Pulmonary hypertension I27.20 Hypertension I10 Memory loss R41.3 BPH NOS w ur obs/LUTS N40.1 Hypokalemia E87.6 Acute respiratory failure with hypoxia J96.01 Aspiration of liquid T17.998A (1) Atrial fibrillation Atrial fibrillation type: permanent Qualified Code(s): I48.21 - Permanent atrial fibrillation
[2020-12-17] MEDS ORDERED: IPRATROPIUM BROMIDE/ALBUTEROL respimat INH INH SCH (13:00)
--- NOTE | 2020-12-17 13:53 | XRay Report ---
XR chest 2V PA/lateral CLINICAL HISTORY: b/l wheezes, pulm edema? pneumonia? COMPARISON STUDY: Chest radiographJuly 2020. FINDINGS: There has been interval development of extensive left hemithorax opacification with volume loss. Cardiomegaly is better depicted on prior exam. There is no pneumothorax. There may be a small l eft pleural effusion. IMPRESSION: 1. Interval development of extensive left lung airspace opacity with volume loss. This favors subtota l atelectasis of the left lung, possibly due to mucous plugging. Bronchoscopy might be considered for further evaluation. Discussed with Dr. Meyers at time of dictation. 2. Possible small left pleural effusion. ACT 112: Negative or not required by law. Electronically signed by: Matt Bright M.D. 12/17/2020 1:52 PM
--- NOTE | 2020-12-17 14:03 | Pulmonary Consultation ---
Date of Consultation December 17, 2020 Assessment & Plan (1) Acute respiratory failure with hypoxia: (2) Aspiration pneumonia: (3) Prostate cancer: (4) Pulmonary hypertension: X-ray 12/17/2020 personally reviewed: Blunting of the left costophrenic angle, increased opacification of the left hemithorax, possibility of left lower lobe collapse. Right costophrenic angle clean, increased hilar vascular marking Patient did have chest x-ray on 11/29/2020 which did not show any significant infiltrate at that time. --Acute hypoxic respiratory failure Likely secondary to aspiration pneumonia with multilobar infiltrates Keep the patient on aspiration precautions O2 supplementation to keep oxygen saturation between 88-92% --Pulmonary hypertension Likely type II --Morbid obesity with probable JAMILA BiPAP nightly and as needed shortness of breath --A. fib On Xarelto Plan: Incentive spirometry, flutter valve, chest PT Keep the patient on the right side CT chest without contrast to see if there is mucous plugging of the left lower lobe. Repeat chest x-ray in the morning. If there is any worsening in the respiratory status patient might need to be intubated. We will think about doing a bronchoscopy on the patient based on the CT chest finding Patient's was in the room during examination and interrogation. Risk and benefits of bronchoscopy explained to patient and patient yesterday. They agreed to proceed with it if need be. Case was discussed with Dr. Cazares Please note the above document was generated using voice recognition software. It may contain grammatical, syntax or spelling errors.Any formal questions or concerns about the content, text or information contained within the body of this dictation should be directly addressed to the provider for clarification. History of Present Illness Attending Physician: Tanner Meyers History of Present Illness 79-year-old male with past medical history of A. fib on Xarelto, diastolic CHF, CKD stage III, gout on allopurinol, prostate CA s/p radiation therapy presented to the hospital with complaints of weakness. Patient also showed a sodium 120 being one of the reasons of him being admitted to the hospital. Today in the afternoon patient while drinking water had an episode of aspiration witnessed by Dr. Cazares Pulmonary consulted for the abnormal chest x-ray finding following that Patient also has short-term memory loss and is not a good historian Patient's was in the room during examination and interrogation. At the time of examination patient was not in any acute distress. He denied any shortness of breath, does complain of cough and difficulty bringing up phlegm. Denied any chest pain, no headache, no nausea, no vomiting. Denies any issues with swallowing before. Allergies Allergy/AdvReac Type Severity Reaction Status Date / Time ceftriaxone [From Rocephin] Allergy Mild Rash Verified 12/07/20 14:13 gabapentin Allergy Mild Rash Verified 12/07/20 14:13 pregabalin [From Lyrica] Allergy SUICIDAL Verified 12/07/20 14:13 Home Medications Medication Instructions Recorded Confirmed Type mwqbudmt-aim-udgga acid 0.4 1 tab PO QDL 10/16/18 12/14/20 History mg-lycopene 300 mcg-lutein 250 mcg tablet (Centrum Silver) ascorbate calcium-bioflavonoid 1 tab PO QDD tab 07/27/19 12/14/20 History 1,000 mg-200 mg tablet (Shante-C with Bioflavonoids) methylprednisolone 4 mg tablet 4 mg PO DAILY PRN 01/11/20 12/14/20 History spironolactone 25 mg tablet 25 mg PO QDB tab 01/11/20 12/14/20 History tamsulosin 0.4 mg capsule 0.4 mg PO QDD 04/07/20 12/14/20 History calcium carbonate 600 mg calcium 600 mg PO DAILY 04/10/20 12/14/20 History (1,500 mg) tablet (Calcium) potassium chloride 10 mEq 30 meq PO TIDM #500 cap 04/10/20 12/14/20 Rx capsule,extended release atenolol 25 mg tablet 25 mg PO DAILY #90 tab 04/30/20 12/14/20 Rx cholecalciferol (vitamin D3) 25 25 mcg PO DAILY #30 cap 07/12/20 12/14/20 Rx mcg (1,000 unit) capsule hydrocolloid dressing 2" X 2" #10 ea 07/26/20 12/14/20 Rx (Aquacel Extra) hydrocolloid dressing 4" X 5" #5 ea 07/26/20 12/14/20 Rx (Aquacel Extra) rivaroxaban 15 mg tablet (Xarelto) 15 mg PO DAILY #90 tab 08/06/20 12/14/20 Rx leuprolide (3 month) 22.5 mg (3 22.5 mg SUBCUT ONCE #1 ea 09/14/20 12/14/20 Rx month) subcutaneous syringe (Eligard) psyllium husk 3.4 gram/5.4 gram 1 tbsp PO DAILY 10/29/20 12/14/20 History oral powder (Metamucil) fluocinonide 0.05 % topical cream 1 applic TOP DAILY PRN #30 gm 11/05/20 12/14/20 Rx metolazone 2.5 mg tablet 2.5 mg PO Q OTHER DAY 90 Days #45 11/05/20 12/14/20 Rx tab allopurinol 100 mg tablet 200 mg PO QDL #180 tab 11/26/20 12/14/20 Rx bumetanide 2 mg tablet 2 mg PO BID #60 tab 11/29/20 12/14/20 Rx Patient History Medical History (Updated 12/17/20 @ 13:59 by Maximus Pineda MD) Ambulatory dysfunction uses a walker and uses a wheel chair Atrial fibrillation (09/06/13) 2013 and takes xarelto Chronic diastolic CHF (congestive heart failure) Chronic kidney disease (CKD) Cor pulmonale, chronic (09/06/13) Gastrointestinal complaints Generalized weakness Hearing deficit Hx of gout Hypertension IPMN (intraductal papillary mucinous neoplasm) Kidney stones Lower extremity edema Lumbar stenosis with neurogenic claudication (09/06/13) Numbness of right foot ANKLE TO BOTTOM OF FOOT Obesity (BMI 30-39.9) Pancreatic cyst Paroxysmal ventricular tachycardia Prostate cancer (06/11/17) Pulmonary hypertension Spinal stenosis of lumbar region Stage 3b chronic kidney disease Tricuspid regurgitation X-ray of lung, abnormal Surgical History H/O lithotripsy History of back surgery X 3 10/03/13 - I&D Lumbar Spine - Ramos #3, ETT #8.0, Grade 1 View 09/18/13 - I&D Lumbar Spine/Hematoma Evacuation - MAC #4, ETT# 8.0 cuffed, Grade 1 View 09/06/13 - L4-S1 Laminectomy - MAC #4, ETT #8.0 HiLo Oral, Grade 1 View History of cardiac cath 2013 ALEXANDER History of cataract surgery BOTH History of colon surgery FOR RUPTURED COLON History of lung surgery FOR SPOT ON LEFT LUNG AND FLUID IN LUNG History of surgical removal of pilonidal cyst History of total left knee replacement History of total right knee replacement Hx of colonoscopy Hx of prostate biopsy NUMEROUS S/P insertion of inferior vena caval filter Family History Mother , 95yo Kidney disease Natural with unknown cause Dementia Father , in his 70s Myocardial infarction Brother Unknown family medical history Brother Unknown family medical history Brother Unknown family medical history Sister Dementia Sister Unknown family medical history Other No pertinent family history Denies family history of Ovarian cancer Prostate cancer Breast cancer Colorectal cancer Social History Smoking Status: Never smoker Second Hand Exposure: No; Hx Alcohol Use: No Hx Substance Use: No Preferred Language: [place] Communication Ability: Effective Visual Impairment: No Limitations Hearing Ability: Use of Hearing Aid Score Caller Required: No Beliefs That Will Affect Care: None marital status: Current Living Situation: Spouse Current Living Situation Comment: Dale Samuels. current occupational status: retired Feels Safe at Home: Yes caffeine: No during the past year weight has: remained stable Physical Activity Frequency: Does not Exercise Seatbelt Use: always Assistive Devices: Walker Review of Systems Review of Systems: All systems reviewed & are unremarkable except as noted in HPI & below Physical Exam Physical Exam: Constitutional: No acute distress HEENT: EOMI, PERRLA, hard to hear Respiratory system: Decreased air entry in the left side, no wheeze, rhonchi, positive crackles left lower lobe CVS: S1-S2 positive, no murmurs or gallops Abdomen: Soft, nontender, nondistended, positive bowel sounds x4 Extremities: +2 pulses bilaterally radialis/ dorsalis pedis, no cyanosis, +1 pitting edema bilateral lower extremity Neuro: Awake alert oriented to self and place Psych: Normal mood and affect G/U: Positive Lr Skin: no rashes, warm and dry Lymphatic: no cervical or axillary lymphadenopathy Results & Data Results & Data ([facility]) Vital Signs (Past 12 Hours) Vital Signs Temp Pulse Pulse Resp BP Pulse Ox 12/17/20 11:20 36.6 C 62 22 144/77 H 98 12/17/20 08:13 66 07/26/21 08:08 36.6 C 59 L 20 109/62 97 12/17/20 04:00 36.4 C L 60 18 119/65 99 12/16/20 08:20 12/17/20 12:08 PG Care Time/CCT Total # of Minutes Spent Total Time Spent with Patient: Total time spent is greater than 50% in coordination of care (as documented) at patient's floor/unit and/or counseling patient: Coding Level of Care Code 40153 Initial Inpt Care Lvl 3 Diagnoses Acute respiratory failure with hypoxia J96.01 Aspiration pneumonia J69.0 Prostate cancer C61 Pulmonary hypertension I27.20
[2020-12-17] MEDS: ALBUTEROL HFA 8 GM INHALER INH SCH ×2 (15:13→19:43)
[2020-12-17] MEDS: IPRATROPIUM BROMIDE HFA INHALER INH SCH ×2 (15:14→19:44)
--- NOTE | 2020-12-17 15:51 | CT Scan Report ---
CT chest diagnostic wo con CLINICAL HISTORY: Left lung collapse vs pneumonia or combo COMPARISON STUDY: June 22, 2017 CT DOSE: 683.71 mGycm TECHNIQUE: CT of the thorax was performed from the thoracic inlet to the lung bases. Images are revi ewed in the axial, sagittal, and coronal planes. IV contrast was not administered for this examinatio n. A dose lowering technique was utilized adhering to the principles of ALARA. FINDINGS: There is no axial, supra clavicle or internal mammary lymphadenopathy seen. Evaluation is limited due to motion artifact. No definite mediastinal lymphadenopathy seen. Thyroid: Imaged portions of the thyroid gland are normal in appearance. Thoracic aorta: Ascending portion of thoracic aorta is ectatic, measured 4.3 cm in diameter. It was m easured 4.1 cm during prior study in 2018. Overall evaluation of aorta is limited due to lack of IV c ontrast. Scattered calcifications of aortic wall are seen. Heart: Four-chamber cardiomegaly is seen without pericardial effusion. Calcifications of the aortic v alve and coronary arteries are seen. Pulmonary artery is dilated measuring 3.1 cm in diameter which was also seen during prior study and m ight be seen in pulmonary hypertension. Lungs and pleural spaces: This study is acquired during partial expiratory phase. Evaluation of pulmonary parenchyma is signifi cantly limited due to motion artifact. Trachea and the right bronchial tree are patent. There is intraluminal content within left mainstem bronchus and left bronchial tree with complete occ lusion of its lumen and associated with patchy consolidative opacities within partially collapsed rig ht lung. There are few mixed reticular and groundglass opacities are seen within inferior aspect of the right middle lobe and right lower lobe. Trace left pleural effusion is seen. There are pleural calcificatio n is seen on the left which appear more conspicuous since prior study. Upper abdomen: Partially visualized upper abdominal viscera is within normal limits. Skeletal structures: Multilevel degenerative changes of the spine. IMPRESSION: 1. 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 Further evaluation w ith direct inspection of the left bronchial tree might be considered. Short-term follow-up with chest radiograph is suggested. Findings will be called to patient's unit. 2. Trace left pleural effusion and pleural calcification. 3. Patchy consolidative opacity within right lower lung. 4. Limited evaluation due to significant motion artifact. 5. Ectatic ascending aorta. Redemonstration of dilatation of the pulmonary artery which could be see n in pulmonary hypertension. ACT 112: Negative or not required by law. The above report was generated using voice recognition software. It may contain grammatical, syntax o r spelling errors. Electronically signed by: Ros Monsivais DO 12/17/2020 3:49 PM
[2020-12-17] MEDS: TAMSULOSIN HCL 0.4 MG CAP PO SCH (16:39)
[2020-12-17] MEDS: AMPICILLIN/SULBACTAM SOD 3,000 MG in 0.9 % SODIUM CHLORIDE 100 ML IV SCH ×2 (16:56→22:31)
[2020-12-17 18:19] LABS: Appearance Urine Clear (Clear); Bacteria Urine Automated Negative (Negative); Bilirubin Urine Negative (Negative); Blood Urine 3+ (Negative); Color Urine Orange; Epithelial Cell Urine Auto 0-5 /lpf (0-5); Glucose Urine UA Negative (Negative); Ketones Urine Negative (Negative); Leukocyte Esterase Urine Trace (Negative); Nitrite Urine Negative (Negative); Protein Urine 1+ (Negative); RBC Urine Automated >30 /hpf (0-4); Specific Gravity Urine 1.011 (1.000-1.030); Urobilinogen Urine Negative (Negative)
[2020-12-17] MEDS: guaiFENesin 600 MG TABCR PO SCH (22:04)
[2020-12-17] MEDS: ACETAMINOPHEN 325 MG TAB PO PRN (22:17)
[2020-12-18] MEDS: AMPICILLIN/SULBACTAM SOD 3,000 MG in 0.9 % SODIUM CHLORIDE 100 ML IV SCH ×4 (04:39→22:11)
[2020-12-18 06:56] LABS: BUN Creatinine Ratio 45.7 (10-20); Calcium 8.4 mg/dl (8.5-10.1); Creatinine Clr Calc Pharmacy 57.1 ml/min; Est GFR (African American) 61.9 ml/min; Est GFR (Non-African American) 53.4 ml/min; Phosphorus 2.8 mg/dl (2.5-4.9); Potassium 4.2 mmol/L (3.5-5.1)
--- NOTE | 2020-12-18 07:15 | Pulmonology Progress Note ---
Date of Service December 18, 2020 Assessment & Plan (1) Acute respiratory failure with hypoxia: (2) Aspiration pneumonia: (3) Prostate cancer: (4) Pulmonary hypertension: Plan: X-ray 12/17/2020 personally reviewed: Blunting of the left costophrenic angle, increased opacification of the left hemithorax, possibility of left lower lobe collapse. Right costophrenic angle clean, increased hilar vascular marking Patient did have chest x-ray on 11/29/2020 which did not show any significant infiltrate at that time. --Acute hypoxic respiratory failure Likely secondary to aspiration pneumonia with multilobar infiltrates Keep the patient on aspiration precautions O2 supplementation to keep oxygen saturation between 88-92% --Pulmonary hypertension Likely type II --Morbid obesity with probable JAMILA BiPAP nightly and as needed shortness of breath --A. fib On Xarelto Plan: Chest x-ray from today still shows left lower lobe collapse with opacity in the left hemithorax We will plan to do bronchoscopy to clear the mucous plugging. Continue with incentive spirometry, flutter valve, chest PT Keep the patient on the right side Risk and benefits of bronchoscopy explained to patient and patient yesterday. I will call the to get the consent Please note the above document was generated using voice recognition software. It may contain grammatical, syntax or spelling errors.Any formal questions or concerns about the content, text or information contained within the body of this dictation should be directly addressed to the provider for clarification. Admission and Anticipated Discharge Date Admission Date: December 14, 2020 Subjective Patient seen and examined at bedside. No acute distress, no adverse events overnight. Patient was saturating 98% on 2 L nasal cannula. He complained of mild shortness of breath. Denies any chest pain, no chest tightness. Patient has been n.p.o. since aspiration episode that he had yesterday. Has been afebrile. Review of Systems Review of Systems: All systems reviewed & are unremarkable except as noted in Subjective and Unobtainable due to mental health condition Physical Exam Physical Exam: Constitutional: No acute distress HEENT: EOMI, PERRLA, hard to hear Respiratory system: Decreased air entry in the left side, no wheeze, rhonchi, positive crackles left lower lobe CVS: S1-S2 positive, no murmurs or gallops Abdomen: Soft, nontender, nondistended, positive bowel sounds x4 Extremities: +2 pulses bilaterally radialis/ dorsalis pedis, no cyanosis, +1 pitting edema bilateral lower extremity Neuro: Awake alert oriented to self and place Psych: Normal mood and affect G/U: Positive Lr Skin: no rashes, warm and dry Lymphatic: no cervical or axillary lymphadenopathy Results & Data Results & Data ([facility]) Vital Signs (Past 12 Hours) Vital Signs Temp Pulse Pulse Resp BP Pulse Ox 12/18/20 02:53 36.4 C L 67 20 114/69 98 12/17/20 23:59 77 12/17/20 22:57 36.8 C 70 18 138/71 96 12/17/20 19:44 72 20 97 12/16/20 08:20 12/18/20 05:47 PG Care Time/CCT Total # of Minutes Spent Total Time Spent with Patient: Total time spent is greater than 50% in coordination of care (as documented) at patient's floor/unit and/or counseling patient: Coding Level of Care Code 18559 Subseq Hosp Care Lvl 3 Diagnoses Acute respiratory failure with hypoxia J96.01 Aspiration pneumonia J69.0 Prostate cancer C61 Pulmonary hypertension I27.20
[2020-12-18] MEDS: IPRATROPIUM BROMIDE HFA INHALER INH SCH (07:32)
[2020-12-18] MEDS: ALBUTEROL HFA 8 GM INHALER INH SCH (07:32)
--- NOTE | 2020-12-18 07:33 | XRay Report ---
XR chest 1V portable CLINICAL HISTORY: f/u COMPARISON STUDY: Chest radiograph and chest CT December 17, 2020. FINDINGS: There is no pneumothorax. Extensive left hemithorax opacification has increased since chest CT of December 17, 2020. Left lung volume loss is present. There is cardiomegaly. There is mild intersti tial thickening opacities within the right lung. There is a trace left pleural effusion. IMPRESSION: 1. Increase in extensive left lung opacification with volume loss. This may reflect a combination of pneumonia and left lung atelectasis. Underlying mucous plug cannot be excluded. 2. Mild right lung opacities which favor an infectious process. 3. Trace left pleural effusion. ACT 112: Negative or not required by law. Electronically signed by: Matt Bright M.D. 12/18/2020 7:32 AM
[2020-12-18] MEDS ORDERED: fentaNYL citrate 100 MCG/2 ML VIAL ONE (07:59)
[2020-12-18] MEDS ORDERED: MIDAZOLAM HCL 5 MG/ML 1 ML VIAL ONE (07:59)
--- NOTE | 2020-12-18 08:05 | Pre Anesthesia Assessment ---
Date of Service December 18, 2020 Pre Sedation Assessment Vital Signs Temp Pulse Pulse Resp BP Pulse Ox 12/18/20 07:34 76 20 98 12/18/20 07:15 36.5 C 45 L 22 132/74 95 12/18/20 06:30 55 L 12/18/20 02:53 36.4 C L 67 20 114/69 98 12/17/20 23:59 77 12/17/20 22:57 36.8 C 70 18 138/71 96 12/17/20 19:44 72 20 97 12/17/20 19:06 36.6 C 70 22 125/64 99 12/17/20 15:14 83 18 96 12/17/20 11:20 36.6 C 62 22 144/77 H 98 12/17/20 08:13 66 12/17/20 08:08 36.6 C 59 L 20 109/62 97 Pre-Sedation Airway Assessment Smoking Status: Never smoker Hx Sleep Apnea: No Short, Thick Neck: Yes Thyromental Distance: > or= 3.5 Finger Breadths Oral Cavity: + WNL Mallampati Class: I ASA: ASA3 NPO Status Date of Last Intake of Fluids: 12/18/20 Time of Last Intake of Fluids: 00:00 Date of Last Intake of Solid Food: 12/18/20 Time of Last Intake of Solid Foods: 00:00 Procedure Planning Contraindications for Sedation: none Current Medications Reviewed: Yes Notes The planned sedation has been discussed with the patient. Informed Consent was obtained. I have identified the patient, determined the appropriateness of sedation and have assessed the patient immediately prior to the procedure. All medicine(s) and interventions are by my order.
--- NOTE | 2020-12-18 08:39 | Procedure Note ---
Procedure Note: Bronchoscopy Procedure PREOPERATIVE DIAGNOSIS: Left lower lobe collapse POSTOPERATIVE DIAGNOSIS: Left lower lobe collapse secondary to mucous plugging PROCEDURE PERFORMED: Flexible fiberoptic bronchoscopy with mucous plug clearance and wash COMPLICATIONS: None. INDICATION: As above PROCEDURE: After obtaining an informed consent, the patient was brought to the Bronchoscopy Suite. The patient had appropriate oxygen, blood pressure, heart rate, and respiratory rate monitoring applied and monitored continuously thr oughout the procedure. Supplemental oxygen via nasal cannula as per nursing records was applied to the nasopharynx with adequate saturations achieved. Topical anesthesia with nebulized 1% lidocaine was achieved. Subsequent to this, the patient was premedicated with 3 mg of midazolam and 75 mcg of fentanyl. Upper Airway: The oropharynx and larynx were well visualized and was normal There was normal vocal cord motion without masses or lesions. Additional topical anesthesia with 1% lidocaine was applied to the trachea and marcelo. The trachea appeared normal.The bronchoscope was then advanced through the marcelo, which was sharp. Large mucous plug was appreciated staggering between the right main and left main. Mostly located in the left main. The scope was then advanced into the right main stem and each segment, subsegement in the right upper lobe, right middle lobe and right lower lobe were visualized. There was moderate amount of valadez thick secretion which were suctioned out. There were no other findings including evidence of mass, anatomic distortions, or hemorrhage. The bronchoscope was subsequently withdrawn and advanced into the left mainstem. Large mucous plug was gradually suctioned out. Again, each segment and subsegment was well visualized after clearing the mucus. No specific masses or other lesions were identified throughout the tracheobronchial tree on the left. There was severe amount of thick grayish secretions which were suctioned out. 10 mL of Mucomyst was instilled in the left lower lobe. The bronchoscope was then wedged in the left upper lobe and bronchoalveolar lavage samples were obtained. 60 ml of saline was instilled and 25 ml of fluid was aspirated back.The bronchoscope was withdrawn and the area was suctioned clear. Minimal bleeding was appreciated after suctioning which stopped on its own. The bronchoscope was then withdrawn to the mainstem. The area was suctioned clear. The bronchoscope was then withdrawn. The patient tolerated the procedure well without evidence of desaturation or complications. Bronchoalveolar lavage samples were sent for cell count, Gram stain and luca terial culture, AFB culture and smear, fungal culture and smear and cytology. Recommendations: Follow-up chest x-ray
--- NOTE | 2020-12-18 08:54 | XRay Report ---
XR chest 1V portable HISTORY: 79 years-old Male s/p bronch status post bronchoscopy COMPARISON: Chest radiograph of same day at 6:57 AM, chest CT 12/17/2020 TECHNIQUE: Portable AP view of the chest FINDINGS: Cardiac silhouette is enlarged. Extensive opacification of the left hemithorax with mildly improved a eration of the left lung from the study obtained earlier this morning. Surgical suture material the l eft lung. No pneumothorax identified. Unchanged patchy right lung opacities with mild right hemidiaph ragmatic elevation. Trace pleural effusions. Degenerative changes of the shoulders and spine. Surgica l clips of the right upper quadrant abdomen. IMPRESSION: 1. Extensive opacification of the left hemithorax redemonstrated. There is slightly improved aeration of the left lung from the study obtained earlier this morning. 2. Unchanged right lung opacities. 3. Trace pleural effusions. ACT 112: Negative or not required by law. The above report was generated using voice recognition software. It may contain grammatical, syntax o r spelling errors. Electronically signed by: Neto Gill M.D. 12/18/2020 8:53 AM
[2020-12-18] MEDS: PSYLLIUM 58.6% POWDER PACKET PO SCH (09:54)
[2020-12-18] MEDS: ACETYLCYSTEINE 20% INHAL SOLN 4ML ***DISPENSED BY RESP. INH SCH ×2 (09:59→20:11)
[2020-12-18 10:03] LABS: Eosinophil Body Fluid Man 0 %; Fluid Mono/Macrophage 4 %; Lymphocyte Body Fluid Man 3 %; Neutrophil Body Fluid Man 93 %
--- NOTE | 2020-12-18 10:13 | Nephrology Progress Note ---
Date of Service December 18, 2020 Assessment & Plan (1) Acute hyponatremia: Plan: Acute hyponatremia with history of chronic hyponatremia in the setting of diastolic CHF. serum sodium generally stays around 124 to 130s, on admission sodium was 120 which a improved to 126 and staying relatively stable. Clinically otherwise asymptomatic, blood pressure acceptable. Has been on IV normal saline since admission and some concern for volume overload. renal function staying relatively stable. Na staying around 127 to 128. -- continue on the on oral salt tablet 1 g twice a day -- repeat serum sodium this afternoon will follow (2) Lower extremity edema: (3) Chronic diastolic CHF (congestive heart failure): (4) Stage 3b chronic kidney disease: Admission and Anticipated Discharge Date Admission Date: December 14, 2020 Cookie Martínez was seen in his room, he just came back after having bronchoscopy. Lethargic and thirsty. blood pressure stable. Sodium remained low at 127. Review of Systems Review of Systems: detailed review of system was not possible due to patient's condition Physical Exam Constitutional: + ill appearing and + lethargic; no acute distress Respiratory: Auscultation: + diminished lung sounds ( ) and + rales Cardiovascular: RRR, no murmur, no edema Neurologic: moves all extremities and awake; not confused Psychiatric: A+Ox3, euthymic affect Results & Data ([facility]) Vital Signs (Past 12 Hours) Vital Signs Temp Pulse Pulse Resp BP Pulse Ox 12/18/20 09:45 36.3 C L 65 22 133/71 98 12/18/20 09:30 36.3 C L 61 22 129/75 95 12/18/20 09:15 36.3 C L 65 22 133/76 97 12/18/20 08:53 63 16 117/61 95 12/18/20 08:47 70 16 124/57 L 93 12/18/20 08:42 70 16 122/66 94 12/18/20 08:37 72 10 L 117/55 L 95 12/18/20 08:32 69 10 L 114/65 96 12/18/20 08:27 70 10 L 114/65 92 12/18/20 08:22 67 10 L 116/69 100 12/18/20 08:17 70 10 L 113/68 100 12/18/20 08:12 63 14 138/77 100 12/18/20 08:01 61 18 135/73 100 12/18/20 07:34 76 20 98 12/18/20 07:15 36.5 C 45 L 22 132/74 95 12/18/20 06:30 55 L 12/18/20 02:53 36.4 C L 67 20 114/69 98 12/17/20 23:59 77 12/17/20 22:57 36.8 C 70 18 138/71 96 PG Care Time/CCT Total # of Minutes Spent Total Time Spent with Patient: Total time spent is greater than 50% in coordination of care (as documented) at patient's floor/unit and/or counseling patient: Coding Level of Care Code 49180 Subseq Hosp Care Lvl 2 Diagnoses Acute hyponatremia E87.1 Lower extremity edema R60.0 Chronic diastolic CHF (congestive heart failure) I50.32 Stage 3b chronic kidney disease N18.32
[2020-12-18] MEDS: ATENOLOL 25 MG TABLET PO SCH (10:24)
[2020-12-18] MEDS: POTASSIUM CHLORIDE 10 MEQ TABCR PO SCH ×3 (10:25→16:24)
[2020-12-18] MEDS: SPIRONOLACTONE 25 MG TAB PO SCH (10:25)
[2020-12-18] MEDS: guaiFENesin 600 MG TABCR PO SCH ×2 (10:26→22:07)
[2020-12-18] MEDS: BUMETANIDE 1 MG TAB PO SCH ×2 (10:26→16:24)
[2020-12-18] MEDS: SODIUM CHLORIDE 1 GM TABLET PO SCH ×2 (10:26→22:07)
[2020-12-18] MEDS: ALBUT/IPRATROP 3MG/0.5MG NEB 3 ML VIAL NEB SCH ×2 (11:19→20:11)
[2020-12-18] MEDS: allopurinoL 100 MG TAB PO SCH (12:18)
[2020-12-18] MEDS: TAMSULOSIN HCL 0.4 MG CAP PO SCH (16:24)
--- NOTE | 2020-12-18 18:41 | Hospitalist Progress Note ---
Date of Service December 18, 2020 Assessment & Plan (1) Acute hyponatremia: Plan: This is slowly improving. Being followed by nephrology Continue fluid restriction Continue salt tablets Status post multiple doses of tolvaptan Fluid status difficult to manage secondary to patient's use of Aldactone, Zaroxolyn, Bumex (2) Acute respiratory failure with hypoxia: Plan: Positive for mucous plugging Status post bronchoscopy for clearance this morning Chest x-ray improved Interim suction established so patient can use Yankauer for clearance from mouth Pulmonology following. Appreciate Dr. Pineda's input (3) Acute on chronic diastolic (congestive) heart failure: Plan: No chest pain or tightness Multiple diuretics Dry weight approximately 105 kg (4) Acute UTI: Plan: Continues on Unasyn Initial culture with gram-negative rods. However, culture contaminated Urinalysis with 4+ bacteria Lr catheter in place Creatinine 1.27 Follow serial labs (5) Stage 3b chronic kidney disease: Plan: Creatinine 1.27 Follow serial labs (6) Atrial fibrillation: Plan: Anticoagulated with Xarelto Continue medical telemetry (7) Pulmonary hypertension: Plan: Secondary to obesity and longstanding obstructive sleep apnea Confirmed on echocardiogram Supplemental oxygen as needed Diuretics as tolerated (8) Hypertension: Plan: Hemodynamically stable Continue antihypertensives and monitor on telemetry (9) Memory loss: Plan: Hard to tell status today with patient recently having anesthesia for moderate sedation for bronchoscopy this morning CT scan of the head with no acute findings Ammonia level is within normal limits as well as B12 and TSH Continue to monitor Does not appear to be delirium (10) BPH NOS w ur obs/LUTS: Plan: Lr catheter in place (11) Hypokalemia: Plan: Resolved (12) Aspiration of liquid: Plan: Aspiration precautions Witnessed aspiration by Dr. Meyers PET CAREGIVER consult placed Possible video study tomorrow (13) Metabolic encephalopathy: Plan: possible metabolic encephalopathy due to hyponatremia resolved (14) DVT prophylaxis: Plan: Anticoagulated on Xarelto Admission and Anticipated Discharge Date Admission Date: December 14, 2020 Supervising Physician Co-Signing Physician Notes PA Supervision Note: I did not personally see or examine the patient today, but I verified all montgomery points of MARÍA Pond's assessment and plan with the following exceptions/additions: None Subjective Attending: Dr. Cerrato 79-year-old male presented to the hospital with weakness and hyponatremia. Followed by nephrology. This morning patient found to have white out of lung. Pulmonary consulted and bronchoscopy performed this morning with significant mucus plugging. Patient received installation of acetylcysteine during the procedure. Patient is still somewhat lethargic from moderate sedation. is at bedside. Patient is easily arousable. He is extremely hard of hearing. Patient is rhonchorous and has significant sputum. Able to encourage patient to do forceful cough with copious amounts of pink sputum. Patient denies any chest pain or tightness. He is afebrile. He has no nausea or vomiting. He denies diarrhea. Review of Systems Review of Systems: All systems reviewed & are unremarkable except as noted in Subjective Physical Exam Physical Exam: GENERAL : No acute distress. Hard of hearing EYES: No icterus, gaze conjugate. Pupils equal round and reactive to light NOSE: No evidence of epistaxis MOUTH: No lesions or candidiasis. Moist NECK: Supple LUNGS: Coarse crackles worse at left base. Positive upper field rhonchi HEART: Regular, rate controlled ABDOMEN: Soft, NT, ND, BS Present EXTREMITIES: No LE edema, pedal pulses intact NEURO: A&OX3 but tired from anesthesia. Falls asleep easily. Easily arousable. Results & Data Results & Data ([facility]) Vital Signs (Past 12 Hours) Vital Signs Temp Pulse Pulse Resp BP Pulse Ox 12/18/20 15:37 68 12/18/20 14:30 36.7 C 70 22 104/62 92 12/18/20 11:42 36.3 C L 96 H 22 132/70 91 12/18/20 11:20 78 22 90 12/18/20 10:15 36.3 C L 68 22 135/69 94 12/18/20 09:45 36.3 C L 65 22 133/71 98 12/18/20 09:30 36.3 C L 61 22 129/75 95 12/18/20 09:15 36.3 C L 65 22 133/76 97 12/18/20 08:53 63 16 117/61 95 12/18/20 08:47 70 16 124/57 L 93 12/18/20 08:42 70 16 122/66 94 12/18/20 08:37 72 10 L 117/55 L 95 12/18/20 08:32 69 10 L 114/65 96 12/18/20 08:27 70 10 L 114/65 92 12/18/20 08:22 67 10 L 116/69 100 12/18/20 08:17 70 10 L 113/68 100 12/18/20 08:12 63 14 138/77 100 12/18/20 08:01 61 18 135/73 100 12/18/20 07:34 76 20 98 12/18/20 07:15 36.5 C 45 L 22 132/74 95 Laboratory Results 12/16/20 08:20 12/18/20 12:02 PG Care Time/CCT Total # of Minutes Spent Total Time Spent with Patient: Total time spent is greater than 50% in coordination of care (as documented) at patient's floor/unit and/or counseling patient: Coding Level of Care Code 00248 Subseq Hosp Care Lvl 2 Diagnoses Acute hyponatremia E87.1 Acute respiratory failure with hypoxia J96.01 Acute on chronic diastolic (congestive) heart failure I50.33 Acute UTI N39.0 Stage 3b chronic kidney disease N18.32 Atrial fibrillation I48.21 Atrial fibrillation type: permanent Pulmonary hypertension I27.20 Hypertension I10 Memory loss R41.3 BPH NOS w ur obs/LUTS N40.1 Hypokalemia E87.6 Aspiration of liquid T17.998A DVT prophylaxis Z29.9 Metabolic encephalopathy G93.41 (1) Atrial fibrillation Atrial fibrillation type: permanent Qualified Code(s): I48.21 - Permanent atrial fibrillation
[2020-12-19] MEDS: AMPICILLIN/SULBACTAM SOD 3,000 MG in 0.9 % SODIUM CHLORIDE 100 ML IV SCH ×4 (04:43→21:54)
[2020-12-19] MEDS: ALBUT/IPRATROP 3MG/0.5MG NEB 3 ML VIAL NEB SCH ×2 (07:06→20:46)
[2020-12-19] MEDS: ACETYLCYSTEINE 20% INHAL SOLN 4ML ***DISPENSED BY RESP. INH SCH ×2 (07:14→20:29)
[2020-12-19 08:15] LABS: Albumin Level 2.7 gm/dl (3.4-5.0); BUN Creatinine Ratio 44.8 (10-20); Calcium 8.5 mg/dl (8.5-10.1); Creatinine Clr Calc Pharmacy 50.8 ml/min; Est GFR (African American) 54.5 ml/min; Phosphorus 2.5 mg/dl (2.5-4.9); Potassium 4.8 mmol/L (3.5-5.1)
[2020-12-19] MEDS: SPIRONOLACTONE 25 MG TAB PO SCH (09:06)
[2020-12-19] MEDS: POTASSIUM CHLORIDE 10 MEQ TABCR PO SCH (09:06)
[2020-12-19] MEDS: guaiFENesin 600 MG TABCR PO SCH ×2 (09:06→21:54)
[2020-12-19] MEDS: ATENOLOL 25 MG TABLET PO SCH (09:06)
[2020-12-19] MEDS: PSYLLIUM 58.6% POWDER PACKET PO SCH (09:07)
[2020-12-19] MEDS: SODIUM CHLORIDE 1 GM TABLET PO SCH ×2 (09:07→21:54)
--- NOTE | 2020-12-19 10:43 | Nephrology Progress Note ---
Date of Service December 19, 2020 Assessment & Plan (1) Acute hyponatremia: Plan: Acute hyponatremia with history of chronic hyponatremia in the setting of diastolic CHF. serum sodium generally stays around 124 to 130s, on admission sodium was 120 which a improved to 126 and staying relatively stable. Clinically otherwise asymptomatic, blood pressure acceptable. Has been on IV normal saline since admission and some concern for volume overload. renal function staying relatively stable. Na Improved to 129. Blood pressure acceptable. creatinine 1.4.. No sign of volume overload. -- Hold Bumex for now, encourage p.o. intake. -- consider follow-up chest x-ray -- continue on the on oral salt tablet 2 g twice a day -- repeat serum sodium in am will follow (2) Lower extremity edema: (3) Chronic diastolic CHF (congestive heart failure): (4) Stage 3b chronic kidney disease: Admission and Anticipated Discharge Date Admission Date: December 14, 2020 Cookie Martínez was seen in his room this morning. Overall feeling poorly and again having some respiratory distress. Sodium slightly improved to 129 this morning. Blood pressure acceptable. He has been net negative almost 4 L since admission. Clinically no sign of volume overload. Physical Exam Constitutional: WD/WN, vitals as above + ill appearing; no acute distress Respiratory: Auscultation: + diminished lung sounds ( ) and + rales; no wheezes Cardiovascular: RRR, no murmur, no edema Rate/Rhythm: regular rate and regular rhythm Neurologic: awake; not confused Psychiatric: A+Ox3, euthymic affect Results & Data ([facility]) Vital Signs (Past 12 Hours) Vital Signs Temp Pulse Pulse Resp BP Pulse Ox 12/19/20 09:05 36.4 C L 65 18 124/64 98 12/19/20 07:22 67 12/19/20 07:16 65 19 99 12/19/20 04:00 36.4 C L 68 20 109/48 L 93 12/19/20 00:00 70 12/18/20 23:00 36.3 C L 77 20 114/61 95 PG Care Time/CCT Total # of Minutes Spent Total Time Spent with Patient: Total time spent is greater than 50% in coordination of care (as documented) at patient's floor/unit and/or counseling p atient: Coding Level of Care Code 71254 Subseq Hosp Care Lvl 3 Diagnoses Acute hyponatremia E87.1 Lower extremity edema R60.0 Chronic diastolic CHF (congestive heart failure) I50.32 Stage 3b chronic kidney disease N18.32
--- NOTE | 2020-12-19 12:03 | Pulmonology Progress Note ---
Date of Service December 19, 2020 Assessment & Plan (1) Acute respiratory failure with hypoxia: (2) Pulmonary hypertension: (3) Aspiration pneumonia: Plan: X-ray 12/17/2020 personally reviewed: Blunting of the left costophrenic angle, increased opacification of the left hemithorax, possibility of left lower lobe collapse. Right costophrenic angle clean, increased hilar vascular marking Patient did have chest x-ray on 11/29/2020 which did not show any significant infiltrate at that time. --Acute hypoxic respiratory failure Likely secondary to aspiration pneumonia with multilobar infiltrates Keep the patient on aspiration precautions S/p bronchoscopy 12/18/2020 with large mucous plug on the left side O2 supplementation to keep oxygen saturation between 88-92% --Poor cough effort Patient has very poor cough effort He already collapsed left side of the lung partly because of that He will need CoughAssist as well as chest vest therapy when he goes home Would recommend social work involvement for it --Pulmonary hypertension Likely type II --Morbid obesity with probable JAMILA BiPAP nightly and as needed shortness of breath --A. fib On Xarelto Plan: Chest x-ray from today shows improvement in aeration of the left side. Still persistent infiltrates Continue with antibiotics to cover for anaerobes I am optimistic that I will not have to bronc him again. But if there is again worsening of any pain in the left lower side or collapse then endoscopy might be indicated to clear airway He will need CoughAssist as well as chest vest therapy when he goes home Would recommend social work involvement for it Please note the above document was generated using voice recognition software. It may contain grammatical, syntax or spelling errors.Any formal questions or concerns about the content, text or information contained within the body of this dictation should be directly addressed to the provider for clarification. Admission and Anticipated Discharge Date Admission Date: December 14, 2020 Subjective Patient seen and examined at bedside. No acute distress, no adverse events overnight. Patient is s/p bronchoscopy 12/19/2019, he has been chest vest as well as cough assist In the time of examination patient says that he is feeling better. He did cough in front of me but he did not bring up any phlegm. Denies any chest pain, says that the shortness of breath is improved. Please make note the patient is a poor historian. Review of Systems Review of Systems: All systems reviewed & are unremarkable except as noted in Subjective Physical Exam Physical Exam: Constitutional: No acute distress HEENT: EOMI, PERRLA, hard to hear Respiratory system: Decreased air entry in the left side, no wheeze, rhonchi, positive crackles left lower lobe CVS: S1-S2 positive, no murmurs or gallops Abdomen: Soft, nontender, nondistended, positive bowel sounds x4 Extremities: +2 pulses bilaterally radialis/ dorsalis pedis, no cyanosis, +1 pitting edema bilateral lower extremity Neuro: Awake alert oriented to self and place Psych: Normal mood and affect G/U: Positive Lr Skin: no rashes, warm and dry Lymphatic: no cervical or axillary lymphadenopathy Results & Data Results & Data ([facility]) Vital Signs (Past 12 Hours) Vital Signs Temp Pulse Pulse Resp BP BP Pulse Ox 12/19/20 11:51 36.4 C L 60 20 112/70 99 12/19/20 09:05 36.4 C L 65 18 124/64 98 12/19/20 07:22 67 12/19/20 07:16 65 19 99 12/19/20 04:00 36.4 C L 68 20 109/48 L 93 12/16/20 08:20 12/19/20 06:56 PG Care Time/CCT Total # of Minutes Spent Total Time Spent with Patient: Total time spent is greater than 50% in coordination of care (as documented) at patient's floor/unit and/or counseling patient: Coding Level of Care Code 04888 Subseq Hosp Care Lvl 3 Diagnoses Acute respiratory failure with hypoxia J96.01 Pulmonary hypertension I27.20 Aspiration pneumonia J69.0
[2020-12-19] MEDS: allopurinoL 100 MG TAB PO SCH (12:06)
--- NOTE | 2020-12-19 12:25 | XRay Report ---
XR chest 1V portable HISTORY: Shortness of breath. Status post bronchoscopy. Follow-up. COMPARISON: Chest 12/18/2020. FINDINGS: Slight improved aeration within the left lung airspace opacities. There are patchy densitie s within the right lung base persist. The heart is stable in size. No pneumothorax. Suture material w ithin the left midlung zone and left lung volume loss is again noted. IMPRESSION: 1. Slight improved aeration within the left lung airspace opacities. 2. The right basilar airspace opacities persist. ACT 112: Negative or not required by law. Electronically signed by: Richard Torres M.D. 12/19/2020 12:23 PM
--- NOTE | 2020-12-19 12:57 | Post Anesthesia Assessment ---
Date of Service December 18, 2020 Post Sedation Assessment Vital Signs Temp Pulse Pulse Resp BP BP Pulse Ox 12/19/20 11:51 36.4 C L 60 20 112/70 99 12/19/20 09:05 36.4 C L 65 18 124/64 98 12/19/20 07:22 67 12/19/20 07:16 65 19 99 12/19/20 04:00 36.4 C L 68 20 109/48 L 93 12/19/20 00:00 70 12/18/20 23:00 36.3 C L 77 20 114/61 95 12/18/20 20:20 63 22 98 12/18/20 19:00 36.7 C 67 20 119/75 95 12/18/20 15:37 68 12/18/20 14:30 36.7 C 70 22 104/62 92 Recovery Score Activity: Moves 4 extremities Respiration: Deep Breath/Cough Circulation: +/-20% PreAnes Value Consciousness: Arouseable (by name) Oxygen Saturation: O2 needed for >90% Post Anesthesia Score: 8 Discharge Sedation Level of Care: Fast Track Phase II Post Sedation Plan On clinical assessment, the patient appears to have tolerated the sedation without complications. Patient is recovering as anticipated. Patient will continue to be monitored by nursing and may be discharged when sedation discharge criteria are met per below protocol. Upon Completions of procedure up to 15 minutes continue every 5 minute vital signs and the P.A.R. score; then discharge to a Phase I or Fast Track to Phase II per the following guidelines: * Discharge Patient to appropriate Phase II area if PAR is 8 or greater or return to pre- procedure baseline. The post - procedure orders will be as directed. * If PAR score is less than 8 or not return to pre-procedure baseline then patient will follow Phase I monitoring till PAR is reached for Phase II. The Phase I may be done in procedure room or may call to secure a Phase I area. * If naloxone or flumazenil are used for reversal, hold in Phase I for continued monitoring from when last reversal dose was given for a minimum of 60 minutes or longer pending the nurse and/or physician discretion of patient condition before discharge to Phase II. Please call the Sedation Physician to re-evaluate and complete post-note for discharge to Phase II area. Do NOT discharge from procedure sedation or Phase 1 until post- sedation evaluation note is complete by procedure /sedation MD Sedation Discharge Instructions to be given to the patient at discharge to home.
--- NOTE | 2020-12-19 14:58 | Fluoroscopy Report ---
FL video swallow CLINICAL HISTORY: 79 years-old Male with r/o aspiration; s/s aspiration at b/s. Dysphagia TECHNIQUE: Video fluoroscopic evaluation of swallowing was performed in the AP and lateral projection s by the speech pathology staff. The patient is fed nectar-thick and thin liquid barium, a barium coa sammie wafer, and barium pudding. FLUOROSCOPY TIME: 3.5 minutes.. COMPARISON STUDY: None. FINDINGS: Aspiration with thin liquid, nectar thick, pudding and solid consistencies. Esophageal dysm otility. Vallecular retention is noted with solid consistencies. Disordered oral pharyngeal transit. IMPRESSION: 1. Aspiration as above. 2. Please see the speech pathologist report for detailed findings and recommendations. ACT 112: Negative or not required by law. Electronically signed by: Neto Gill M.D. 12/19/2020 2:57 PM
--- NOTE | 2020-12-19 15:32 | Hospitalist Progress Note ---
Date of Service December 19, 2020 Assessment & Plan (1) Metabolic encephalopathy: Plan: Possible metabolic encephalopathy due to hyponatremia Sodium level slowly improving Continue fluid restriction Continue salt tablets Monitor daily labs (2) Acute hyponatremia: Plan: Most likely secondary to multiple dose of tolvaptan Patient also on multiple diuretics Fluid status has been difficult to manage secondary to patient's use of Aldactone, Zaroxolyn, Bumex Diuretics have been reduced Continue with fluid restriction for now Nephrology following as well. Appreciate Drs. Mendoza and Farhad's input Follow serial labs (3) Acute respiratory failure with hypoxia: Plan: Secondary to mucous plugging and aspiration pneumonia Bronchoscopy yesterday with copious amounts of mucus and large mucous plug straddling the right and left main bronchus Acetylcysteine introduced via bronchoscopy Rhonchi improved today Continue with [id number] and Pneumovax Continue on medical telemetry (4) Aspiration pneumonia: Plan: Video swallow study today * Silent aspiration of all liquid bolus presentations * No palak aspiration of pudding or crackers however there was residual in the v allecula and piriform sinuses * Attempted strategy use were ineffective * Patient with severe pharyngeal stage dysphagia Patient not able to effectively use throat clearing and cleansing swallows to clear material in the laryngeal vestibule. Diet modification not particularly helpful Focus on good oral hygiene to minimize oral bacteria Continue with aspiration precautions Patient would benefit from supervised feedings Single bites/small sips/slow rate No straws (5) Acute on chronic diastolic (congestive) heart failure: Plan: Follows with the heart clinic Discussed patient with Erlinda Martino PA-C, heart clinical support tech Appears to be euvolemic today May slowly reintroduce diuretics Continue fluid restriction Follow serial labs (6) Acute UTI: Plan: Initial culture with gram-negative rods. Culture appear to be contaminated Urinalysis had 4+ bacteria Received ceftriaxone in the emergency room on 12/14/2020. On admission patient was changed to ciprofloxacin from 12/14/2020 through 12/16/2020. Was then started on Unasyn 12/17/2020 Today is day 6 of antibiotics. Discontinue most likely tomorrow Check a procalcitonin level with a.m. labs (7) Stage 3b chronic kidney disease: Plan: Baseline creatinine appears to be 1.4-1.5. Creatinine today is 1.41. Follow serial labs (8) Atrial fibrillation: Plan: Chronically anticoagulated with rivaroxaban This is been held for bronchoscopy. Patient with nosebleed today. May resume anticoagulation tomorrow if pulmonary does not feel the patient needs further bronchoscopy Patient is rate controlled with a pulse of 62 bpm Continue to monitor heart rate and other vital signs. (9) Pulmonary hypertension: Plan: Likely type II Continue oxygen supplementation and diuretics as tolerated (10) Hypertension: Plan: Well-controlled Continue atenolol Vital signs per protocol (11) Memory loss: Plan: This seems to be slightly improved today Continue repletion of electrolytes to maintain balance Continue supplemental oxygen and BiPAP to control hypercapnia CT head with no acute findings (12) BPH NOS w ur obs/LUTS: Plan: Continue tamsulosin Lr catheter in place Follow strict I's and O's (13) Hypokalemia: Plan: Potassium levels been climbing secondary to holding of diuretics Change potassium supplement from 3 times daily to daily Monitor daily labs (14) DVT prophylaxis: Plan: Rivaroxaban held secondary to procedures Ambulate as tolerated May restart anticoagulation tomorrow if no further procedures are required Plan: Disposition: Admission and Anticipated Discharge Date Admission Date: December 14, 2020 Supervising Physician Co-Signing Physician Notes PA Supervision Note: I did not personally see or examine the patient today, but I verified all montgomery points of MARÍA Pond's assessment and plan with the following exc eptions/additions: None Subjective Patient seen and examined the bedside chair. He is comfortable in no acute respiratory distress. He sounds less rhonchorous than yesterday. He states that he is still having difficulty clearing sputum. Forced cough is slightly better today. He denies fever. No hemoptysis. No chest pain or tightness. No pleuritic type pain. Review of Systems Review of Systems: All systems reviewed & are unremarkable except as noted in Subjective Physical Exam Physical Exam: GENERAL : No acute distress. Sitting in bedside chair EYES: No icterus, gaze conjugate NOSE: No evidence of epistaxis MOUTH: No lesions or candidiasis. Mucosa moist NECK: Supple LUNGS: Bibasilar crackles. Rhonchi in the upper hur[place] but improved compared to yesterday HEART: Regular, rate controlled ABDOMEN: Soft, NT, ND, BS Present EXTREMITIES: No LE edema, pedal pulses intact NEURO: A&OX3 Results & Data Results & Data ([facility]) Vital Signs (Past 12 Hours) Vital Signs Temp Pulse Pulse Resp BP BP Pulse Ox 12/19/20 11:51 36.4 C L 60 20 112/70 99 12/19/20 09:05 36.4 C L 65 18 124/64 98 12/19/20 07:22 67 12/19/20 07:16 65 19 99 12/19/20 04:00 36.4 C L 68 20 109/48 L 93 Laboratory Results 12/16/20 08:20 12/19/20 06:56 Diagnostic Findings XR chest 1V portable HISTORY: Shortness of breath. Status post bronchoscopy. Follow-up. COMPARISON: Chest 12/18/2020. FINDINGS: Slight improved aeration within the left lung airspace opacities. There are patchy densities within the right lung base persist. The heart is stable in size. No pneumothorax. Suture material within the left midlung zone and left lung volume loss is again noted. IMPRESSION: 1. Slight improved aeration within the left lung airspace opacities. 2. The right basilar airspace opacities persist. ACT 112: Negative or not required by law. Electronically signed by: Richard Torres M.D. 12/19/2020 12:23 PM PG Care Time/CCT Total # of Minutes Spent Total Time Spent with Patient: Total time spent is greater than 50% in coordination of care (as documented) at patient's floor/unit and/or counseling patient: Coding Level of Care Code 47554 Subseq Hosp Care Lvl 2 Diagnoses Metabolic encephalopathy G93.41 Acute hyponatremia E87.1 Acute respiratory failure with hypoxia J96.01 Acute on chronic diastolic (congestive) heart failure I50.33 Acute UTI N39.0 Stage 3b chronic kidney disease N18.32 Atrial fibrillation I48.21 Atrial fibrillation type: permanent Pulmonary hypertension I27.20 Hypertension I10 Memory loss R41.3 BPH NOS w ur obs/LUTS N40.1 Hypokalemia E87.6 DVT prophylaxis Z29.9 Aspiration pneumonia J69.0 Time Spent (min) 25 (1) Atrial fibrillation Atrial fibrillation type: permanent Qualified Code(s): I48.21 - Permanent atrial fibrillation
[2020-12-19] MEDS: TAMSULOSIN HCL 0.4 MG CAP PO SCH (15:41)
[2020-12-20] MEDS: AMPICILLIN/SULBACTAM SOD 3,000 MG in 0.9 % SODIUM CHLORIDE 100 ML IV SCH ×4 (03:43→21:12)
[2020-12-20] MEDS: ALBUT/IPRATROP 3MG/0.5MG NEB 3 ML VIAL NEB SCH ×2 (07:22→19:52)
--- NOTE | 2020-12-20 07:25 | XRay Report ---
XR chest 1V portable HISTORY: 79 years-old Male f/u follow-up study in a patient with acute shortness of breath COMPARISON: 12/19/2020, chest CT 12/17/2020 TECHNIQUE: Portable AP view of the chest FINDINGS: Cardiac silhouette is enlarged. Pulmonary vascular congestion. Extensive pulmonary opacities througho ut the left lung have mildly worsened. Unchanged right lung patchy opacities with right hemidiaphragm atic elevation. No pneumothorax or large pleural effusion. Degenerative changes of the shoulders and spine. IMPRESSION: 1. Extensive left lung airspace opacities have mildly worsened from comparison. 2. Unchanged patchy opacities throughout the right lung. 3. Cardiomegaly. ACT 112: Negative or not required by law. The above report was generated using voice recognition software. It may contain grammatical, syntax o r spelling errors. Electronically signed by: Neto Gill M.D. 12/20/2020 7:24 AM
[2020-12-20] MEDS: ACETYLCYSTEINE 20% INHAL SOLN 4ML ***DISPENSED BY RESP. INH SCH ×2 (07:36→19:52)
[2020-12-20] MEDS: RIVAROXABAN 15 MG TAB PO SCH ×2 (08:08→08:10)
[2020-12-20] MEDS: POTASSIUM CHLORIDE 10 MEQ TABCR PO SCH (08:08)
[2020-12-20] MEDS: guaiFENesin 600 MG TABCR PO SCH ×2 (08:08→19:38)
[2020-12-20] MEDS: SODIUM CHLORIDE 1 GM TABLET PO SCH ×2 (08:08→19:38)
[2020-12-20] MEDS: ATENOLOL 25 MG TABLET PO SCH (08:08)
[2020-12-20] MEDS: PSYLLIUM 58.6% POWDER PACKET PO SCH (08:09)
[2020-12-20] MEDS: SPIRONOLACTONE 25 MG TAB PO SCH (08:09)
[2020-12-20 09:21] LABS: Albumin Level 2.9 gm/dl (3.4-5.0); BUN Creatinine Ratio 47.3 (10-20); Calcium 8.4 mg/dl (8.5-10.1); Creatinine Clr Calc Pharmacy 50.6 ml/min; Est GFR (African American) 53.6 ml/min; Est GFR (Non-African American) 46.3 ml/min; Phosphorus 2.5 mg/dl (2.5-4.9); Potassium 4.2 mmol/L (3.5-5.1)
--- NOTE | 2020-12-20 10:37 | Nephrology Progress Note ---
Date of Service December 20, 2020 Assessment & Plan (1) Acute hyponatremia: Plan: Acute hyponatremia with history of chronic hyponatremia in the setting of diastolic CHF. serum sodium generally stays around 124 to 130s, on admission sodium was 120 which a improved to 129 and staying relatively stable. found to have left lung collapse with mucus plugging, had bronchoscopy on 12/18/20, bronchial washing is negative for malignant cell. Swallow evaluation showed aspiration with liquids, thick liquids as well as solids. Na staying relatively stable around 129. Blood pressure acceptable. creatinine 1.4.. No sign of volume overload. -- start on normal saline at 80 mL/hour -- continue on the on oral salt tablet 2 g twice a day -- repeat serum sodium in am will follow (2) Lower extremity edema: (3) Chronic diastolic CHF (congestive heart failure): (4) Stage 3b chronic kidney disease: Admission and Anticipated Discharge Date Admission Date: December 14, 2020 Cookie Martínez was seen in his room this morning. Overall feeling poorly. Sodium staying relatively stable at 129. Blood pressure acceptable. Clinically no sign of volume overload. swallow evaluation showed aspiration with liquids, thick liquid and solids and has been kept NPO. complains of thirst and asking for drinks. Review of Systems Review of Systems: detailed review of system was not possible due to patient's condition Physical Exam Constitutional: WD/WN, vitals as above + ill appearing; no acute distress Respiratory: Auscultation: + crackles and + rales; no wheezes Cardiovascular: RRR, no murmur, no edema Rate/Rhythm: regular rate and regular rhythm Neurologic: awake; no focal motor deficits Psychiatric: A+Ox3, euthymic affect Results & Data ([facility]) Vital Signs (Past 12 Hours) Vital Signs Temp Pulse Pulse Resp BP BP Pulse Ox 12/20/20 07:57 36.4 C L 70 24 150/74 H 99 12/20/20 07:22 87 21 98 12/20/20 03:45 75 12/20/20 02:59 36.3 C L 69 18 151/82 H 100 12/19/20 22:52 36.3 C L 69 20 133/71 96 PG Care Time/CCT Total # of Minutes Spent Total Time Spent with Patient: Total time spent is greater than 50% in coordination of care (as documented) at patient's floor/unit and/or counseling patient: Coding Level of Care Code 75206 Subseq Hosp Care Lvl 3 Diagnoses Acute hyponatremia E87.1 Lower extremity edema R60.0 Chronic diastolic CHF (congestive heart failure) I50.32 Stage 3b chronic kidney disease N18.32
[2020-12-20] MEDS: allopurinoL 100 MG TAB PO SCH (10:57)
[2020-12-20] MEDS: SODIUM CHLORIDE 0.9% 1000ML 1,000 ML IV SCH ×2 (10:57→19:39)
[2020-12-20] MEDS: TAMSULOSIN HCL 0.4 MG CAP PO SCH (16:32)
--- NOTE | 2020-12-20 19:32 | Hospitalist Progress Note ---
Date of Service December 20, 2020 Assessment & Plan (1) Metabolic encephalopathy: Plan: Mentation seems to be improving but still with memory loss Possible metabolic encephalopathy due to hyponatremia Sodium level stable Continue fluid restriction Continue salt tablets Monitor daily labs Nephrology following. Appreciate their input (2) Acute hyponatremia: Plan: Was given multiple doses of tolvaptan Patient also on multiple diuretics Fluid status has been difficult to manage secondary to patient's use of Aldactone, Zaroxolyn, Bumex Diuretics have been held for rising creatinine-okay to continue spironolactone Continue with fluid restriction for now Nephrology following as well. Appreciate Drs. Mendoza and Farhad's input- recommending starting normal saline at 80 mL's per hour today Follow serial labs (3) Acute respiratory failure with hypoxia: Plan: Secondary to mucous plugging and aspiration pneumonia Bronchoscopy 12/18/20 with copious amounts of mucus and large mucous plug straddling the right and left main bronchus Acetylcysteine introduced via bronchoscopy Anticipate repeat bronchoscopy tomorrow morning * N.p.o. after midnight * Hold anticoagulation Continue with [id number] and Pneumovax Continue on medical telemetry (4) Aspiration pneumonia: Plan: Video swallow study here showed: * Silent aspiration of all liquid bolus presentations * No palak aspiration of pudding or crackers however there was residual in the vallecula and piriform sinuses * Attempted strategy use were ineffective * Patient with severe pharyngeal stage dysphagia Patient not able to effectively use throat clearing and cleansing swallows to clear material in the laryngeal vestibule. Diet modification not particularly helpful Focus on good oral hygiene to minimize oral bacteria Continue with aspiration precautions Patient would benefit from supervised feedings Single bites/small sips/slow rate No straws (5) Acute on chronic diastolic (congestive) heart failure: Plan: Follows with the heart clinic Discussed patient with Erlinda Martino PA-C, heart chief general pediatric clinic Appears to be euvolemic today Slowly reintroduce diuretics Continue fluid restriction per nephrology Follow serial labs (6) Acute UTI: Plan: Initial culture with gram-negative rods. Culture appear to be contaminated Urinalysis had 4+ bacteria Received ceftriaxone in the emergency room on 12/14/2020. On admission patient was changed to ciprofloxacin from 12/14/2020 through 12/16/2020. Was then started on Unasyn 12/17/2020 Today is day 7 of antibiotics. Procalcitonin level continues to be elevated at 4.34 (7) Stage 3b chronic kidney disease: Plan: Baseline creatinine appears to be 1.4-1.5. Creatinine today is 1.43. Follow serial labs (8) Atrial fibrillation: Plan: Chronically anticoagulated with rivaroxaban This is been held for bronchoscopy. Continue to hold anticoagulation for repeat bronchoscopy tomorrow Patient is rate controlled with a pulse of 62 bpm Continue to monitor heart rate and other vital signs. (9) Pulmonary hypertension: Plan: Likely type II Continue oxygen supplementation and diuretics as tolerated (10) Hypertension: Plan: Well-controlled Continue atenolol Vital signs per protocol (11) Memory loss: Plan: This seems to be slightly improved today but does continue to have have significant decline Continue repletion of electrolytes to maintain balance Continue supplemental oxygen and BiPAP to control hypercapnia CT head with no acute findings (12) BPH NOS w ur obs/LUTS: Plan: Continue tamsulosin Lr catheter in place Follow strict I's and O's (13) Hypokalemia: Plan: Potassium levels been climbing secondary to holding of diuretics Change potassium supplement from 3 times daily to once daily Monitor daily labs (14) DVT prophylaxis: Plan: Rivaroxaban held secondary to procedures Ambulate as tolerated Continue to hold anticoagulation for repeat bronchoscopy Plan: Disposition: Long discussion with patient and Patient now with significant non-reversible dysphagia Multisystem issues now progressing Patient and agree to palliative care consult to discuss goals of care and patient aware that we may need to focus on quality of life Also discussed that patient may have deteriorated to the point that he may not be able to return home. The [facility] is holding a bed for him. Will continue discussion. Admission and Anticipated Discharge Date Admission Date: December 14, 2020 Supervising Physician Co-Signing Physician Notes PA Supervision Note: I did not personally see or examine the patient today, but I verified all montgomery points of MARÍA Pond's assessment and plan with the following exceptions/additions: None Subjective Attending: Dr. Cerrato Patient seen and examined in bed. Also had 30-minute discussion with at bedside. Patient states he feels better today and has little bit more energy. Continues to have difficulty clearing secretions. Unable to move secretions from his chest into his mouth at this time. Chest x-ray with evidence of more mucous plugging today. Patient denies fever, chills, sweats, rigors. No nausea or vomiting. Patient denies diarrhea but does have flatus. No other acute comp laints. Review of Systems Review of Systems: All systems reviewed & are unremarkable except as noted in Subjective Physical Exam Physical Exam: GENERAL : No acute distress. More relaxed today. EYES: No icterus, gaze conjugate NOSE: No evidence of epistaxis MOUTH: No lesions or candidiasis. Oxymask in place NECK: Supple LUNGS: Decreased breath sounds on left. Positive for rales at the bases. HEART: Regular, rate controlled ABDOMEN: Soft, NT, ND, BS Present EXTREMITIES: Trace LE edema, pedal pulses intact and equal bilaterally NEURO: A&OX3. Hard of hearing. Memory loss Results & Data Results & Data ([facility]) Vital Signs (Past 12 Hours) Vital Signs Temp Pulse Resp BP Pulse Ox 12/20/20 15:35 36.4 C L 61 20 130/72 100 12/20/20 11:25 36.7 C 83 24 113/74 94 12/20/20 07:57 36.4 C L 70 24 150/74 H 99 Laboratory Results 12/16/20 08:20 12/20/20 08:17 Diagnostic Findings XR chest 1V portable HISTORY: 79 years-old Male f/u follow-up study in a patient with acute shortness of breath COMPARISON: 12/19/2020, chest CT 12/17/2020 TECHNIQUE: Portable AP view of the chest FINDINGS: Cardiac silhouette is enlarged. Pulmonary vascular congestion. Extensive pulmonary opacities throughout the left lung have mildly worsened. Unchanged right lung patchy opacities with right hemidiaphragmatic elevation. No pneumothorax or large pleural effusion. Degenerative changes of the shoulders and spine. IMPRESSION: 1. Extensive left lung airspace opacities have mildly worsened from comparison. 2. Unchanged patchy opacities throughout the right lung. 3. Cardiomegaly. ACT 112: Negative or not required by law. The above report was generated using voice recognition software. It may contain grammatical, syntax or spelling errors. Electronically signed by: Neto Gill M.D. 12/20/2020 7:24 AM [place] video swallow CLINICAL HISTORY: 79 years-old Male with r/o aspiration; s/s aspiration at b/s. Dysphagia TECHNIQUE: Video fluoroscopic evaluation of swallowing was performed in the AP and lateral projections by the speech pathology staff. The patient is fed nectar-thick and thin liquid barium, a barium coated wafer, and barium pudding. FLUOROSCOPY TIME: 3.5 minutes.. COMPARISON STUDY: None. FINDINGS: Aspiration with thin liquid, nectar thick, pudding and solid consistencies. Esophageal dysmotility. Vallecular retention is noted with solid consistencies. Disordered oral pharyngeal transit. IMPRESSION: 1. Aspiration as above. 2. Please see the speech pathologist report for detailed findings and recommendations. ACT 112: Negative or not required by law. Electronically signed by: Neto Gill M.D. 12/19/2020 2:57 PM PG Care Time/CCT Total # of Minutes Spent Total Time Spent with Patient: Total time spent is greater than 50% in coordination of care (as documented) at patient's floor/unit and/or counseling patient: 60 minutes including discussion with the patient and his Coding Level of Care Code 24442 Subseq Hosp Care Lvl 2 (25 - SIGNIFICANT, SEPARATELY IDENTIFIABLE ) Diagnoses Metabolic encephalopathy G93.41 Acute hyponatremia E87.1 Acute respiratory failure with hypoxia J96.01 Aspiration pneumonia J69.0 Acute on chronic diastolic (congestive) heart failure I50.33 Acute UTI N39.0 Stage 3b chronic kidney disease N18.32 Atrial fibrillation I48.21 Atrial fibrillation type: permanent Pulmonary hypertension I27.20 Hypertension I10 Memory loss R41.3 BPH NOS w ur obs/LUTS N40.1 Hypokalemia E87.6 DVT prophylaxis Z29.9 Time Spent (min) 60 (1) Atrial fibrillation Atrial fibrillation type: permanent Qualified Code(s): I48.21 - Permanent atrial fibrillation
--- NOTE | 2020-12-20 20:21 | Pulmonology Progress Note ---
Date of Service December 20, 2020 Assessment & Plan (1) Aspiration pneumonia: (2) Acute respiratory failure with hypoxia: (3) Cough: (4) Pulmonary hypertension: Plan: X-ray 12/17/2020 personally reviewed: Blunting of the left costophrenic angle, increased opacification of the left hemithorax, possibility of left lower lobe collapse. Right costophrenic angle clean, increased hilar vascular marking Patient did have chest x-ray on 11/29/2020 which did not show any s ignificant infiltrate at that time. --Acute hypoxic respiratory failure Likely secondary to aspiration pneumonia with multilobar infiltrates Keep the patient on aspiration precautions S/p bronchoscopy 12/18/2020 with large mucous plug on the left side O2 supplementation to keep oxygen saturation between 88-92% --Poor cough effort Patient has very poor cough effort He already collapsed left side of the lung partly because of that He will need CoughAssist as well as chest vest therapy when he goes home Would recommend social work involvement for it --Pulmonary hypertension Likely type II --Morbid obesity with probable JAMILA BiPAP nightly and as needed shortness of breath --A. fib On Xarelto Plan: Chest x-ray from today again shows atelectasis/collapse of the left lower lobe Patient still has very poor cough effort We will plan to do bronchoscopy to clear the airway again tomorrow Case was discussed with at bedside. Risk and benefits of the procedure were again explained to her. Overall prognosis of the patient is guarded given the patient still has active aspiration. This was also relayed to her. He will need CoughAssist as well as chest vest therapy when he goes home Would recommend social work involvement for it Please note the above document was generated using voice recognition software. It may contain grammatical, syntax or spelling errors.Any formal questions or concerns about the content, text or information contained within the body of this dictation should be directly addressed to the provider for clarification. Admission and Anticipated Discharge Date Admission Date: December 14, 2020 Subjective Patient seen and examined at bedside. No acute distress, no adverse events ov ernight. Denies any chest pain He says that he is coughing and trying to bring up phlegm. Has been using chest vest as well as CoughAssist. Denies any headache, no nausea or vomiting. Review of Systems Review of Systems: All systems reviewed & are unremarkable except as noted in Subjective and Unobtainable due to mental health condition Physical Exam Physical Exam: Constitutional: No acute distress HEENT: EOMI, PERRLA, hard to hear Respiratory system: Decreased air entry in the left side, no wheeze, rhonchi, positive crackles left lower lobe CVS: S1-S2 positive, no murmurs or gallops Abdomen: Soft, nontender, nondistended, positive bowel sounds x4 Extremities: +2 pulses bilaterally radialis/ dorsalis pedis, no cyanosis, +1 pitting edema bilateral lower extremity Neuro: Awake alert oriented to self and place Psych: Normal mood and affect G/U: Positive Lr Skin: no rashes, warm and dry Lymphatic: no cervical or axillary lymphadenopathy Results & Data Results & Data ([facility]) Vital Signs (Past 12 Hours) Vital Signs Temp Pulse Resp BP Pulse Ox 12/20/20 19:57 56 L 20 100 12/20/20 15:35 36.4 C L 61 20 130/72 100 12/20/20 11:25 36.7 C 83 24 113/74 94 12/16/20 08:20 12/20/20 08:17 PG Care Time/CCT Total # of Minutes Spent Total Time Spent with Patient: Total time spent is greater than 50% in coordination of care (as documented) at patient's floor/unit and/or counseling patient: Coding Level of Care Code 31230 Subseq Hosp Care Lvl 3 Diagnoses Aspiration pneumonia J69.0 Acute respiratory failure with hypoxia J96.01 Cough R05 Pulmonary hypertension I27.20
[2020-12-21] MEDS: AMPICILLIN/SULBACTAM SOD 3,000 MG in 0.9 % SODIUM CHLORIDE 100 ML IV SCH ×4 (03:33→21:47)
[2020-12-21] MEDS: ALBUT/IPRATROP 3MG/0.5MG NEB 3 ML VIAL NEB SCH ×2 (07:30→19:43)
[2020-12-21] MEDS: ACETYLCYSTEINE 20% INHAL SOLN 4ML ***DISPENSED BY RESP. INH SCH ×2 (07:30→19:49)
--- NOTE | 2020-12-21 07:37 | Pulmonology Progress Note ---
Date of Service December 21, 2020 Assessment & Plan (1) Aspiration pneumonia: (2) Acute respiratory failure with hypoxia: (3) Cough: (4) Pulmonary hypertension: Plan: X-ray 12/17/2020 personally reviewed: Blunting of the left costophrenic angle, increased opacification of the left hemithorax, possibility of left lower lobe collapse. Right costophrenic angle clean, increased hilar vascular marking Patient did have chest x-ray on 11/29/2020 which did not show any s ignificant infiltrate at that time. --Acute hypoxic respiratory failure Likely secondary to aspiration pneumonia with multilobar infiltrates Keep the patient on aspiration precautions S/p bronchoscopy 12/18/2020 with large mucous plug on the left side O2 supplementation to keep oxygen saturation between 88-92% --Poor cough effort Patient has very poor cough effort He already collapsed left side of the lung partly because of that He will need CoughAssist as well as chest vest therapy when he goes home Would recommend social work involvement for it --Pulmonary hypertension Likely type II --Morbid obesity with probable JAMILA BiPAP nightly and as needed shortness of breath --A. fib On Xarelto Plan: For bronchoscopy today Case was discussed with 12/20/20. Risk and benefits of the procedure were again explained to her. Overall prognosis of the patient is guarded given the patient still has active aspiration. He will need CoughAssist as well as chest vest therapy when he goes home Would recommend social work involvement for it Please note the above document was generated using voice recognition software. It may contain grammatical, syntax or spelling errors.Any formal questions or concerns about the content, text or information contained within the body of this dictation should be directly addressed to the provider for clarification. Admission and Anticipated Discharge Date Admission Date: December 14, 2020 Subjective Patient seen and examined at bedside. No acute distress. No adverse events overnight Denies any complaints. States that he is coughing and using the CoughAssist as well as the chest vest therapy. Denies any chest pain. No abdominal pain. No nausea or vomiting. Patient is a poor historian Review of Systems Review of Systems: All systems reviewed & are unremarkable except as noted in Subjective and Unobtainable due to mental health condition Physical Exam Physical Exam: Constitutional: No acute distress HEENT: EOMI, PERRLA, hard to hear Respiratory system: Decreased air entry in the left side, no wheeze, rhonchi, positive crackles left lower lobe CVS: S1-S2 positive, no murmurs or gallops Abdomen: Soft, nontender, nondistended, positive bowel sounds x4 Extremities: +2 pulses bilaterally radialis/ dorsalis pedis, no cyanosis, +1 pitting edema bilateral lower extremity Neuro: Awake alert oriented to self and place Psych: Normal mood and affect G/U: Positive Lr Skin: no rashes, warm and dry Lymphatic: no cervical or axillary lymphadenopathy Results & Data Results & Data ([facility]) Vital Signs (Past 12 Hours) Vital Signs Temp Pulse Resp BP Pulse Ox 12/21/20 07:00 36.4 C L 67 20 133/73 100 12/21/20 03:00 37 C 66 20 122/70 100 12/20/20 23:00 36.4 C L 67 20 122/65 100 12/20/20 20:00 36.4 C L 74 20 128/71 100 12/20/20 19:57 56 L 20 100 12/16/20 08:20 12/20/20 08:17 PG Care Time/CCT Total # of Minutes Spent Total Time Spent with Patient: Total time spent is greater than 50% in coordination of care (as documented) at patient's floor/unit and/or counseling patient: Coding Level of Care Code 75268 Subseq Hosp Care Lvl 3 Diagnoses Aspiration pneumonia J69.0 Acute respiratory failure with hypoxia J96.01 Cough R05 Pulmonary hypertension I27.20
[2020-12-21] MEDS ORDERED: MIDAZOLAM HCL 5 MG/ML 1 ML VIAL ONE (07:42)
[2020-12-21] MEDS ORDERED: fentaNYL citrate 100 MCG/2 ML VIAL ONE (07:42)
--- NOTE | 2020-12-21 08:06 | Pre Anesthesia Assessment ---
Date of Service December 21, 2020 Pre Sedation Assessment Vital Signs Temp Pulse Pulse Resp BP BP Pulse Ox 12/21/20 07:40 60 20 122/64 100 12/21/20 07:36 65 12/21/20 07:00 36.4 C L 67 20 133/73 100 12/21/20 03:00 37 C 66 20 122/70 100 12/20/20 23:00 36.4 C L 67 20 122/65 100 12/20/20 20:00 36.4 C L 74 20 128/71 100 12/20/20 19:57 56 L 20 100 12/20/20 15:35 36.4 C L 61 20 130/72 100 12/20/20 11:25 36.7 C 83 24 113/74 94 Pre-Sedation Airway Assessment Smoking Status: Never smoker Hx Sleep Apnea: No Short, Thick Neck: Yes Thyromental Distance: > or= 3.5 Finger Breadths Oral Cavity: + WNL Mallampati Class: I ASA: ASA3 NPO Status Date of Last Intake of Fluids: 12/21/20 Time of Last Intake of Fluids: 00:00 Last Oral Intake of Fluids Comment: t Date of Last Intake of Solid Food: 12/21/20 Time of Last Intake of Solid Foods: 00:00 Procedure Planning Contraindications for Sedation: none Current Medications Reviewed: Yes Notes The planned sedation has been discussed with the patient. Informed Consent was obtained. I have identified the patient, determined the appropriateness of sedation and have assessed the patient immediately prior to the procedure. All medicine(s) and interventions are by my order.
--- NOTE | 2020-12-21 08:29 | Post Anesthesia Assessment ---
Date of Service December 21, 2020 Post Sedation Assessment Vital Signs Temp Pulse Pulse Resp BP BP Pulse Ox 12/21/20 07:40 60 20 122/64 100 12/21/20 07:36 65 12/21/20 07:00 36.4 C L 67 20 133/73 12/21/20 03:00 37 C 66 20 122/70 100 12/20/20 23:00 36.4 C L 67 20 122/65 12/20/20 20:00 36.4 C L 74 20 128/71 12/20/20 19:57 56 L 20 12/20/20 15:35 36.4 C L 61 20 130/72 12/20/20 11:25 36.7 C 83 24 113/74 94 Recovery Score Activity: Moves 4 extremities Respiration: Deep Breath/Cough Circulation: +/-20% PreAnes Value Consciousness: Arouseable (by name) Oxygen Saturation: O2 needed for >90% Post Anesthesia Score: 8 Discharge Sedation Level of Care: Fast Track Phase II Post Sedation Plan On clinical assessment, the patient appears to have tolerated the sedation without complications. Patient is recovering as anticipated. Patient will continue to be monitored by nursing and may be discharged when sedation discharge criteria are met per below protocol. Upon Completions of procedure up to 15 minutes continue every 5 minute vital signs and the P.A.R. score; then discharge to a Phase I or Fast Track to Phase II per the following guidelines: * Discharge Patient to appropriate Phase II area if PAR is 8 or greater or return to pre- procedure baseline. The post - procedure orders will be as directed. * If PAR score is less than 8 or not return to pre-procedure baseline then patient will follow Phase I monitoring till PAR is reached for Phase II. The Phase I may be done in procedure room or may call to secure a Phase I area. * If naloxone or flumazenil are used for reversal, hold in Phase I for continued monitoring from when last reversal dose was given for a minimum of 60 minutes or longer pending the nurse and/or physician discretion of patient condition before discharge to Phase II. Please call the Sedation Physician to re-evaluate and complete post-note for discharge to Phase II area. Do NOT discharge from procedure sedation or Phase 1 until post- sedation evaluation note is complete by procedure /sedation MD Sedation Discharge Instructions to be given to the patient at discharge to home.
--- NOTE | 2020-12-21 08:34 | Procedure Note ---
Procedure Note: Bronchoscopy Procedure PREOPERATIVE DIAGNOSIS: Left lower lobe atelectasis/collapse POSTOPERATIVE DIAGNOSIS: Mucous plugging left main PROCEDURE PERFORMED: Therapeutic flexible fiberoptic bronchoscopy COMPLICATIONS: None. INDICATION: As above PROCEDURE: After obtaining an informed consent, the patient was brought to the Bronchoscopy Suite. The patient had appropriate oxygen, blood pressure, heart rate, and respiratory rate monitoring applied and monitored continuously throughout the procedure. Supplemental oxygen via nasal cannula as per nursing records was applied to the nasopharynx with adequate saturations achieved. Topical anesthesia with nebulized 1% lidocaine was achieved. Subsequent to this, the patient was premedicated with 2 mg of midazolam and 50 mcg of fentanyl. Upper Airway: The oropharynx and larynx were well visualized and showed mild erythema, otherwise normal. There was normal vocal cord motion without masses or lesions. Additional topical anesthesia with 1% lidocaine was applied to the trachea and marcelo. The trachea appeared slightly erythematous especially at the entry.The bronchoscope was then advanced through the marcelo, which was sharp. The scope was then advanced into the right main stem and each segment, subsegement in the right upper lobe, right middle lobe and right lower lobe were visualized. There was minimal amount of greenish-yellow secretion which were suctioned out from the right upper lobe. There were no other findings including evidence of mass, anatomic distortions, or hemorrhage. The bronchoscope was subsequently withdrawn and advanced into the left mainstem. Mucous plugs were appreciated in the left main. Very thick. Very hard to suction out. I had to retract the bronchoscope to clean the channel and then inserted the bronchoscope again. After clearing the secretions again, each segment and subsegment was well visualized. No specific masses or other lesions were identified throughout the tracheobronchial tree on the left. Patient's left main as well as left upper lobe mucosa was very friable. It bled very easily to suction. Cold saline was given. The bronchoscope was then withdrawn to the mainstem. The area was suctioned clear. The bronchoscope was then withdrawn. The patient tolerated the procedure well without evidence of desaturation or complications. Recommendations: Follow-up chest x-ray Would recommend holding off Xarelto for 2 days.
[2020-12-21] MEDS: ATENOLOL 25 MG TABLET PO SCH (09:18)
[2020-12-21] MEDS: POTASSIUM CHLORIDE 10 MEQ TABCR PO SCH (09:18)
[2020-12-21] MEDS: PSYLLIUM 58.6% POWDER PACKET PO SCH (09:18)
[2020-12-21] MEDS: guaiFENesin 600 MG TABCR PO SCH ×2 (09:18→21:48)
[2020-12-21] MEDS: SPIRONOLACTONE 25 MG TAB PO SCH (09:18)
[2020-12-21] MEDS: SODIUM CHLORIDE 1 GM TABLET PO SCH ×2 (09:19→21:48)
--- NOTE | 2020-12-21 09:19 | XRay Report ---
XR chest 1V portable CLINICAL HISTORY: s/p bronch COMPARISON STUDY: Chest CT December 17, 2020. Chest radiograph December 20, 2020. FINDINGS: There is no pneumothorax. Extensive left lung airspace opacities are noted. Left lung aerat ion has slightly improved. Mild right lung opacities are unchanged. Cardiomegaly is unchanged. There is a trace left pleural effusion. IMPRESSION: 1. No pneumothorax. 2. Extensive left lung airspace opacities, slightly improved. Persistent mild right lung airspace opa cities. ACT 112: Negative or not required by law. Electronically signed by: Matt Bright M.D. 12/21/2020 9:17 AM
[2020-12-21] MEDS: SODIUM CHLORIDE 0.9% 1000ML 1,000 ML IV SCH ×2 (09:52→21:55)
[2020-12-21 10:07] LABS: Basophils # (auto) 0.02 K/uL (0-0.2); Basophils % (auto) 0.3 %; Eosinophils # (auto) 0.13 K/uL (0-0.5); Hematocrit (blood only) 32.6 % (42-52); Hemoglobin 10.5 g/dL (14.0-18.0); Immature Granulocytes # (auto) 0.03 K/uL (0.00-0.02); Immature Granulocytes % (auto) 0.5 %; Lymphocytes # (auto) 0.47 K/uL (1.2-3.4); Lymphocytes % (auto) 7.2 %; Mean Corpuscular Hgb Conc 32.2 g/dL (32-36); Mean Corpuscular Volume 105.5 fL (80-100); Mean Platelet Volume 10.1 fL (7.4-10.4); Monocytes % (auto) 6.1 %; Neutrophils # (auto) 5.46 K/uL (1.4-6.5); Neutrophils % (auto) 83.9 %; Platelet Count 151 K/uL (130-400); RDW Coefficient of Variation 18.6 % (11.5-14.5); RDW Standard Deviation 72.4 fL (36.4-46.3); Red Blood Count 3.09 M/uL (4.7-6.1); White Blood Count 6.51 K/uL (4.8-10.8)
--- NOTE | 2020-12-21 10:10 | Nephrology Progress Note ---
Date of Service December 21, 2020 Assessment & Plan (1) Acute hyponatremia: Plan: Acute hyponatremia with history of chronic hyponatremia in the setting of diastolic CHF. serum sodium generally stays around 124 to 130s, on admission sodium was 120 which a improved to 129 and staying relatively stable. found to have left lung collapse with mucus plugging, had bronchoscopy on 12/18/20 and 12/21/20, bronchial washing is negative for malignant cell. Swallow evaluation showed aspiration with liquids, thick liquids as well as solids. Na staying relatively stable around 129. Blood pressure acceptable. creatinine 1.4.. No sign of volume overload. Lab from this morning currently pending. overall doing poorly with high risk for aspiration repeated left lung collapse with thick mucus plugging, despite bronchoscopy. -- continue on normal saline at 80 mL/hour -- oral salt tablet 2 g twice a day -- repeat serum sodium in am will follow (2) Lower extremity edema: (3) Chronic diastolic CHF (congestive heart failure): (4) Stage 3b chronic kidney disease: Admission and Anticipated Discharge Date Admission Date: December 14, 2020 Cookie Martínez was seen in his room this morning. He just came back after 2nd bronchoscopy this morning. post bronch chest x-ray showed persistent left lung opacity with minimum improvement. continue to complain of thirst and repeatedly asking for drinks. lab pending. Review of Systems Review of Systems: detailed review of system was otherwise unremarkable. Physical Exam Constitutional: WD/WN, vitals as above + ill appearing and + lethargic; no acute distress Respiratory: Auscultation: + crackles and + rales; no wheezes Cardiovascular: RRR, no murmur, no edema Neurologic: awake; no focal motor deficits Psychiatric: A+Ox3, euthymic affect Results & Data ([facility]) Vital Signs (Past 12 Hours) Vital Signs Temp Pulse Pulse Resp BP BP Pulse Ox 12/21/20 10:01 36.4 C L 73 18 147/73 H 90 12/21/20 09:22 36.4 C L 18 142/74 H 100 12/21/20 09:03 79 20 117/65 98 12/21/20 08:48 71 20 116/66 98 12/21/20 08:43 71 20 127/62 98 12/21/20 08:38 71 18 121/66 98 12/21/20 08:33 75 18 123/65 98 07/30/21 08:28 68 18 131/62 97 12/21/20 08:23 81 16 123/64 93 12/21/20 08:22 72 16 106/82 92 12/21/20 08:17 73 16 112/57 L 95 12/21/20 08:12 60 18 140/60 100 12/21/20 07:40 60 20 122/64 100 12/21/20 07:36 65 12/21/20 07:00 36.4 C L 67 20 133/73 100 12/21/20 03:00 37 C 66 20 122/70 100 12/20/20 23:00 36.4 C L 67 20 122/65 100 PG Care Time/CCT Total # of Minutes Spent Total Time Spent with Patient: Total time spent is greater than 50% in coordination of care (as documented) at patient's floor/unit and/or counseling patient: Coding Level of Care Code 26021 Subseq Hosp Care Lvl 3 Diagnoses Acute hyponatremia E87.1 Lower extremity edema R60.0 Chronic diastolic CHF (congestive heart failure) I50.32 Stage 3b chronic kidney disease N18.32
[2020-12-21 10:32] LABS: Albumin Level 2.8 gm/dl (3.4-5.0); BUN Creatinine Ratio 54.8 (10-20); Calcium 8.7 mg/dl (8.5-10.1); Creatinine Clr Calc Pharmacy 62.4 ml/min; Est GFR (African American) 68.3 ml/min; Est GFR (Non-African American) 58.9 ml/min; Phosphorus 2.9 mg/dl (2.5-4.9); Potassium 4.3 mmol/L (3.5-5.1)
[2020-12-21] MEDS: allopurinoL 100 MG TAB PO SCH (11:11)
--- NOTE | 2020-12-21 15:54 | Palliative Care Consultation ---
Date of Consultation December 21, 2020 Assessment & Plan (1) Dyspnea: with anxiety. We talked about his oxygen level being normal and with some distraction and relaxation techniques, his dyspnea improved. (2) Palliative care encounter: I met with Mr. Lundberg, his and his nephew, Cristino, at bedside. We reviewed his current medical problems and talked about how he is coping with his illness. Five years ago they moved to a senior living community in [place] in anticipation of his declining health. They have the option for him to move from his apartment to SNF. They tell me that he has completed a living will and would not want to have any life support. We talked about his current code status of full code and possibility that if he were intubated he would be dependent on ventilatory support. They both tell me that is not what he would want. He tells me that he would not want CPR, shocks to his chest or a breathing tube. Code status was changed to DNR to reflect this. We also talked about his aspiration risk. They have talked about the possibility of artificial feeding if needed but he says that he would not want that. They would want to adjust diet consistency to lower his risk of aspiration and were interested in continued therapy both physical and speech therapy at the SNF after discharge. He has been evaluated by speech therapy here with recommendation for no straws and alternating solids and liquids. Palliative care will follow as needed during his stay. (3) Acute respiratory failure with hypoxia: (4) Acute on chronic diastolic (congestive) heart failure: (5) Pulmonary hypertension: (6) Stage 3b chronic kidney disease: (7) Prostate cancer: History of Present Illness Reason for Consultation: goals of care Requesting Physician: Reji Pond PAC Attending Physician: Corinne Cerrato MD History of Present Illness 79 yo gentleman with diastolic heart failure, atrial fibrillation, CKD and obesity. He also has prostate cancer and recently completed full course of radiation therapy. His notes that he has been very weak at home which she initially attributed to the radiation therapy. She took him for a check up and he was found to be hyponatremic. He has had encephalpathy with some improvement but still has periods of confusion. He is also found to have acute hypoxic respiratory failure with aspiration. He underwent bronchoscopy for left lower lung collapse due to mucous plugging. He is awake with some mild confusion and anxiety. He complains of feeling short of breath. His oxygen saturation is 95- 99% and his air hunger and anxiety improve with distraction. We have been consulted to assist with goals of care. Allergies Allergy/AdvReac Type Severity Reaction Status Date / Time ceftriaxone [From Rocephin] Allergy Mild Rash Verified 12/07/20 14:13 gabapentin Allergy Mild Rash Verified 12/07/20 14:13 pregabalin [From Lyrica] Allergy SUICIDAL Verified 12/07/20 14:13 Home Medications Medication Instructions Recorded Confirmed Type fiptohkn-trd-unqxv acid 0.4 1 tab PO QDL 10/16/18 12/14/20 History mg-lycopene 300 mcg-lutein 250 mcg tablet (Centrum Silver) ascorbate calcium-bioflavonoid 1 tab PO QDD tab 07/27/19 12/14/20 History 1,000 mg-200 mg tablet (Shante-C with Bioflavonoids) methylprednisolone 4 mg tablet 4 mg PO DAILY PRN 01/11/20 12/14/20 History spironolactone 25 mg tablet 25 mg PO QDB tab 01/11/20 12/14/20 History tamsulosin 0.4 mg capsule 0.4 mg PO QDD 04/07/20 12/14/20 History calcium carbonate 600 mg calcium 600 mg PO DAILY 04/10/20 12/14/20 History (1,500 mg) tablet (Calcium) potassium chloride 10 mEq 30 meq PO TIDM #500 cap 04/10/20 12/14/20 Rx capsule,extended release atenolol 25 mg tablet 25 mg PO DAILY #90 tab 04/30/20 12/14/20 Rx cholecalciferol (vitamin D3) 25 25 mcg PO DAILY #30 cap 07/12/20 12/14/20 Rx mcg (1,000 unit) capsule hydrocolloid dressing 2" X 2" #10 ea 07/26/20 12/14/20 Rx (Aquacel Extra) hydrocolloid dressing 4" X 5" #5 ea 07/26/20 12/14/20 Rx (Aquacel Extra) rivaroxaban 15 mg tablet (Xarelto) 15 mg PO DAILY #90 tab 08/06/20 12/14/20 Rx leuprolide (3 month) 22.5 mg (3 22.5 mg SUBCUT ONCE #1 ea 04/23/21 07/23/21 Rx month) subcutaneous syringe (Eligard) psyllium husk 3.4 gram/5.4 gram 1 tbsp PO DAILY 10/29/20 12/14/20 History oral powder (Metamucil) fluocinonide 0.05 % topical cream 1 applic TOP DAILY PRN #30 gm 11/05/20 12/14/20 Rx metolazone 2.5 mg tablet 2.5 mg PO Q OTHER DAY 90 Days #45 11/05/20 12/14/20 Rx tab allopurinol 100 mg tablet 200 mg PO QDL #180 tab 11/26/20 12/14/20 Rx bumetanide 2 mg tablet 2 mg PO BID #60 tab 11/29/20 12/14/20 Rx Patient History Medical History Ambulatory dysfunction uses a walker and uses a wheel chair Atrial fibrillation (09/06/13) 2013 and takes xarelto Chronic diastolic CHF (congestive heart failure) Chronic kidney disease (CKD) Cor pulmonale, chronic (09/06/13) Gastrointestinal complaints Generalized weakness Hearing deficit Hx of gout Hypertension IPMN (intraductal papillary mucinous neoplasm) Kidney stones Lower extremity edema Lumbar stenosis with neurogenic claudication (09/06/13) Numbness of right foot ANKLE TO BOTTOM OF FOOT Obesity (BMI 30-39.9) Pancreatic cyst Paroxysmal ventricular tachycardia Prostate cancer (06/11/17) Pulmonary hypertension Spinal stenosis of lumbar region Stage 3b chronic kidney disease Tricuspid regurgitation X-ray of lung, abnormal Surgical History H/O lithotripsy History of back surgery X 3 10/03/13 - I&D Lumbar Spine - Ramos #3, ETT #8.0, Grade 1 View 09/18/13 - I&D Lumbar Spine/Hematoma Evacuation - MAC #4, ETT# 8.0 cuffed, Grade 1 View 09/06/13 - L4-S1 Laminectomy - MAC #4, ETT #8.0 HiLo Oral, Grade 1 View History of cardiac cath 2013 ALEXANDER History of cataract surgery BOTH History of colon surgery FOR RUPTURED COLON History of lung surgery FOR SPOT ON LEFT LUNG AND FLUID IN LUNG History of surgical removal of pilonidal cyst History of total left knee replacement History of total right knee replacement Hx of colonoscopy Hx of prostate biopsy NUMEROUS S/P insertion of inferior vena caval filter Family History Mother , 95yo Kidney disease Natural with unknown cause Dementia Father , in his 70s Myocardial infarction Brother Unknown family medical history Brother Unknown family medical history Brother Unknown family medical history Sister Dementia Sister Unknown family medical history Other No pertinent family history Denies family history of Ovarian cancer Prostate cancer Breast cancer Colorectal cancer Social History Smoking Status: Never smoker Second Hand Exposure: No; Hx Alcohol Use: No Hx Substance Use: No Preferred Language: Iraqi Communication Ability: Effective Visual Impairment: No Limitations Hearing Ability: Use of Hearing Aid Chief Deputy Clerk/Bailiff Required: No Beliefs That Will Affect Care: None marital status: Current Living Situation: Spouse Current Living Situation Comment: Dale Samuels. current occupational status: retired Feels Safe at Home: Yes caffeine: No during the past year weight has: remained stable Physical Activity Frequency: Does not Exercise Seatbelt Use: always Assistive Devices: Walker Review of Systems Review of Systems: [place] Symptom Assessment Scale Pain 0/3 Anxiety 2/3 Dyspnea 1/3 Fatigue 2/3 Drowsiness 1/3 Palliative Performance Score 30% Physical Exam Constitutional: + ill appearing and + obese ENMT: Ears: + hearing impairment Respiratory: + uses accessory muscles and + cough (productive) Cardiovascular: Rate/Rhythm: regular rate and regular rhythm Gastrointestinal (Abdomen): Inspection/Auscultation: + significant pannus Neurologic: awake mild confusion Results & Data ([facility]) Vital Signs (Past 12 Hours) Vital Signs Temp Pulse Pulse Resp BP BP Pulse Ox 12/21/20 15:00 97.0 F L 73 20 143/78 H 135/72 99 12/21/20 11:39 98.1 F 72 18 133/65 95 12/21/20 11:33 98.2 F 83 18 124/67 95 12/21/20 10:01 97.5 F L 73 18 147/73 H 90 12/21/20 09:22 97.5 F L 18 142/74 H 100 12/21/20 09:03 79 20 117/65 98 12/21/20 08:48 71 20 116/66 98 12/21/20 08:43 71 20 127/62 98 12/21/20 08:38 71 18 121/66 98 12/21/20 08:33 75 18 123/65 98 12/21/20 08:28 68 18 131/62 97 12/21/20 08:23 81 16 123/64 93 12/21/20 08:22 72 16 106/82 92 12/21/20 08:17 73 16 112/57 L 95 12/21/20 08:12 60 18 140/60 100 12/21/20 07:40 60 20 122/64 100 12/21/20 07:36 65 12/21/20 07:00 97.5 F L 67 20 133/73 100 PG Care Time/CCT Total # of Minutes Spent Total Time Spent: 70 Total Time Spent with Patient: Total time spent is greater than 50% in coordination of care (as documented) at patient's floor/unit and/or counseling patient: goals of care, code status, advance directives, artificial feeding Coding Level of Care Code 42114 Initial Inpt Care Lvl 3 Diagnoses Dyspnea R06.00 Palliative care encounter Z51.5 Acute respiratory failure with hypoxia J96.01 Acute on chronic diastolic (congestive) heart failure I50.33 Pulmonary hypertension I27.20 Stage 3b chronic kidney disease N18.32 Prostate cancer C61
--- NOTE | 2020-12-21 17:07 | Hospitalist Progress Note ---
Date of Service December 21, 2020 Assessment & Plan (1) Metabolic encephalopathy: Plan: Mentation seems to be improving but still with short-term memory loss which contributes to Lupron therapy previously Possible metabolic encephalopathy due to hyponatremia Sodium level stable to improved Seems to be at his baseline mental status at this time (2) Acute hyponatremia: Plan: With a history of chronic hyponatremia in the setting of chronic diastolic CHF with baseline sodium 124-130s With acute hyponatremia upon admission with a sodium of 120 Was given multiple doses of tolvaptan Patient also on multiple diuretics Fluid status has been difficult to manage secondary to patient's use of Aldactone, Zaroxolyn, Bumex Diuretics have been held for rising creatinine-okay to continue spironolactone Nephrology following as well. Appreciate Drs. Mendoza and Farhad's [id number] normal saline at 80 mL's per hour today Follow serial labs, urine osmolality remaining around 370 Continue sodium chloride 2 g p.o. twice daily (3) Acute respiratory failure with hypoxia: Plan: Secondary to mucous plugging and recurrent aspiration pneumonia causing recurrent collapse of left lung Bronchoscopy 12/18/20 with copious amounts of mucus and large mucous plug straddling the right and left main bronchus Repeat bronchoscopy on 12/21 again with thick hardened large amount of mucus secretions suctioned out of left lung Acetylcysteine introduced via bronchoscopy Has very poor cough effort BAL cultures, AFB, and fungal smear all pending. Cytology shows no malignant cells but with abundant acute inflammatory cells and necrotic debris present -Start acetylcysteine nebulizer every 12 hours -Continue to hold Xarelto has had some friable tissue in bronchoscopy after removal of mucous -Continue with fqswg-[id number] and Pneumovax -Case management should be consulted for assisting with obtaining CoughAssist machine as well as chest vest therapy for home use as per pulmonary recommendation Continue supplemental O2 to keep pulse ox greater than 92% (4) Aspiration pneumonia: Plan: Video swallow study here showed: * Silent aspiration of all liquid bolus presentations * No palak aspiration of pudding or crackers however there was residual in the vallecula and piriform sinuses * Attempted strategy use were ineffective * Patient with severe pharyngeal stage dysphagia Patient not able to effectively use throat clearing and cleansing swallows to clear material in the laryngeal vestibule. Diet modification not particularly helpful Focus on good oral hygiene to minimize oral bacteria Continue with aspiration precautions Patient would benefit from supervised feedings Single bites/small sips/slow rate No straws Continue Unasyn Follow BAL cultures (5) Acute on chronic diastolic (congestive) heart failure: Plan: Follows with the heart clinic Discussed patient with Erlinda Martino PA-C, heart clinical trials data coordinator Appears to be euvolemic today Slowly reintroduce diuretics when okay with nephrology For now, remains on normal saline due to overdiuresis (6) Acute UTI: Plan: Urine culture with mixed organisms Urinalysis had 4+ bacteria and greater than 30 whites with 0 epithelial cells Received ceftriaxone in the emergency room on 12/14/2020, followed by ciprofloxacin x3 days, now on Unasyn as above for aspiration Has Lr catheter in place-need to assess when okay to remove Unclear why Lr catheter was placed on 12/15 Need to do trial of void prior to discharge Just completed recent radiation therapy for prostate cancer (7) Stage 3b chronic kidney disease: Plan: Baseline creatinine appears to be 1.4-1.5. Creatinine was up to 1.43 nephrology giving normal saline And Bumex was held, now creatinine down to 1.12, Follow serial labs (8) Atrial fibrillation: Plan: Permanent atrial fibrillation Chronically anticoagulated with rivaroxaban Which has been held for bronchoscopy.-Pulmonology recommends continuing to hold for 2 days further given oozing of blood and friable tissue after bronchoscopy Rates are well controlled Continue home atenolol Monitor on telemetry (9) Pulmonary hypertension: Plan: Likely type II Continue oxygen supplementation and diuretics as tolerated (10) Hypertension: Plan: Well-controlled Continue atenolol Vital signs per protocol (11) Memory loss: Plan: This seems to be slightly improved today but does continue to have have signific ant decline Continue repletion of electrolytes to maintain balance Continue supplemental oxygen and BiPAP to control hypercapnia CT head with no acute findings (12) BPH NOS w ur obs/LUTS: Plan: With a history of prostate cancer status post recent radiation therapy Continue tamsulosin Lr catheter in place but needs trial of void in the near future Follow strict I's and O's (13) Hypokalemia: Plan: Potassium levels been climbing secondary to holding of diuretics Change potassium supplement from home dose of 30 mEq p.o. 3 times daily to 30 mEq once daily Monitor daily labs (14) Hx of gout: Plan: Continue allopurinol (15) Prostate cancer: Plan: Status post recent radiation therapy (16) DVT prophylaxis: Plan: Rivaroxaban held secondary to procedures Ambulate as tolerated Continue to hold anticoagulation for repeat bronchoscopy Plan: Disposition: Long discussion with patient and Patient now with significant non-reversible dysphagia Multisystem issues now progressing Patient and agree to palliative care consult to discuss goals of care and patient aware that we may need to focus on quality of life Also discussed that patient may have deteriorated to the point that he may not be able to return home. The [facility] is holding a bed for him. Will continue discussion. Hopeful for discharge to SNF in the next 2 to 3 days if pulmonary issues improve and does not need continued serial bronchoscopy Admission and Anticipated Discharge Date Admission Date: December 14, 2020 Subjective Patient and his recall meeting me 2 years ago in the hospital. Patient reports no new symptoms. He denies shortness of breath. He remains on oxygen. He had a bronchoscopy this morning to remove lots of thick and hard mucus in the left lung. He denies chest pains. No nausea. We discussed the fact that he has difficulties with aspiration. Telemetry with atrial fibrillation with rates in the 70s to 80s with small runs of PVCs. Review of Systems Review of Systems: All systems reviewed & are unremarkable except as noted in HPI & below Physical Exam Constitutional: WD/WN, vitals as above + obese Eyes: + anicteric sclerae Neck: trachea midline, no thyromegaly Respiratory: Auscultation: + rhonchi (On left middle and lower lung hurley); no wheezes Cardiovascular: Rate/Rhythm: regular rate and + irregularly irregular Extremities: + edema (1+ pitting edema of the bilateral lower extremities) Gastrointestinal (Abdomen): normal bowel sounds, soft, nontender, no h epatosplenomegaly Musculoskeletal: Extremities: no cyanosis and no clubbing Skin: no rashes, warm and dry Neurologic: moves all extremities and awake; no focal motor deficits Psychiatric: Orientation: alert, oriented to person, oriented to place and cooperative Genitourinary: Lr catheter in place Results & Data Results & Data ([facility]) Vital Signs (Past 12 Hours) Vital Signs Temp Pulse Pulse Resp BP BP Pulse Ox 12/21/20 15:00 36.1 C L 73 20 143/78 H 135/72 99 12/21/20 11:39 36.7 C 72 18 133/65 95 12/21/20 11:33 36.8 C 83 18 124/67 95 12/21/20 10:01 36.4 C L 73 18 147/73 H 90 12/21/20 09:22 36.4 C L 18 142/74 H 100 12/21/20 09:03 79 20 117/65 98 12/21/20 08:48 71 20 116/66 98 12/21/20 08:43 71 20 127/62 98 12/21/20 08:38 71 18 121/66 98 12/21/20 08:33 75 18 123/65 98 12/21/20 08:28 68 18 131/62 97 12/21/20 08:23 81 16 123/64 93 12/21/20 08:22 72 16 106/82 92 12/21/20 08:17 73 16 112/57 L 95 12/21/20 08:12 60 18 140/60 100 12/21/20 07:40 60 20 122/64 100 12/21/20 07:36 65 12/21/20 07:00 36.4 C L 67 20 133/73 100 Laboratory Results 12/21/20 12/21/20 12/21/20 Range/Units 17:22 09:56 09:56 WBC 6.51 (4.8-10.8) K/uL RBC 3.09 L (4.7-6.1) M/uL Hgb 10.5 L (14.0-18.0) g/dL Hct 32.6 L (42-52) % MCV 105.5 H (80-100) fL MCH 34.0 (25-34) pg MCHC 32.2 (32-36) g/dL RDW Std Deviation 72.4 H (36.4-46.3) fL RDW Coeff of Anthony 18.6 H (11.5-14.5) % Plt Count 151 (130-400) K/uL MPV 10.1 (7.4-10.4) fL Immature Gran % (Auto) 0.5 % Neut % (Auto) 83.9 % Lymph % (Auto) 7.2 % [place] % (Auto) 6.1 % Eos % (Auto) 2.0 % Baso % (Auto) 0.3 % Neut # (Auto) 5.46 (1.4-6.5) K/uL Lymph # (Auto) 0.47 L (1.2-3.4) K/uL [place] # (Auto) 0.40 (0.11-0.59) K/uL Eos # (Auto) 0.13 (0-0.5) K/uL Baso # (Auto) 0.02 (0-0.2) K/uL Immature Gran # (Auto) 0.03 H (0.00-0.02) K/uL Sodium 132 L (136-145) mmol/L Potassium 4.3 (3.5-5.1) mmol/L Chloride 102 (98-107) mmol/L Carbon Dioxide 26 (21-32) mmol/L Anion Gap 4.0 (3-11) BUN 64 H (7-18) mg/dl Creatinine 1.17 (0.6-1.4) mg/dl Est Cr Clr Drug Dosing 62.4 ml/min Est GFR ( Amer) 68.3 ml/min Est GFR (Non-Af Amer) 58.9 ml/min BUN/Creatinine Ratio 54.8 H (10-20) Glucose 108 H (70-99) mg/dl Calcium 8.7 (8.5-10.1) mg/dl Phosphorus 2.9 (2.5-4.9) mg/dl Albumin 2.8 L (3.4-5.0) gm/dl Urine Osmolality 387 L (500-800) mOsm/kg PG Care Time/CCT Total # of Minutes Spent Total Time Spent with Patient: Total time spent is greater than 50% in coordination of care (as documented) at patient's floor/unit and/or counseling patient: Coding Level of Care Code 29173 Subseq Hosp Care Lvl 3 Diagnoses Metabolic encephalopathy G93.41 Acute hyponatremia E87.1 Acute respiratory failure with hypoxia J96.01 Aspiration pneumonia J69.0 Acute on chronic diastolic (congestive) heart failure I50.33 Acute UTI N39.0 Stage 3b chronic kidney disease N18.32 Atrial fibrillation I48.21 Atrial fibrillation type: permanent Pulmonary hypertension I27.20 Hypertension I10 Memory loss R41.3 BPH NOS w ur obs/LUTS N40.1 Hypokalemia E87.6 DVT prophylaxis Z29.9 Hx of gout Z87.39 Prostate cancer C61 (1) Atrial fibrillation Atrial fibrillation type: permanent Qualified Code(s): I48.21 - Permanent atrial fibrillation
[2020-12-21] MEDS: TAMSULOSIN HCL 0.4 MG CAP PO SCH (17:16)
[2020-12-22] MEDS: AMPICILLIN/SULBACTAM SOD 3,000 MG in 0.9 % SODIUM CHLORIDE 100 ML IV SCH ×4 (03:36→22:06)
--- NOTE | 2020-12-22 07:06 | Communication Note ---
Date of Service: December 22, 2020 Subjective: Nursing notified that the patient had a subjective complaint of trouble breathing. Objective: Oxygen increased --> 4L --> BiPAP PE Lungs with good air movement bilaterally speaking in 2-3 word sentences wiht increased WOB Slight end expiratory wheeze appreciated, no crackles appreciated A/P: 79 yo M w/ CHF (on Bumetanide @ home), CKD with Hyponatremia - held fluids - CXR ordered
[2020-12-22 07:20] LABS: Albumin Level 2.7 gm/dl (3.4-5.0); BUN Creatinine Ratio 51.7 (10-20); Calcium 8.8 mg/dl (8.5-10.1); Creatinine Clr Calc Pharmacy 72.4 ml/min; Est GFR (African American) 79.7 ml/min; Est GFR (Non-African American) 68.8 ml/min; Phosphorus 2.6 mg/dl (2.5-4.9); Potassium 4.3 mmol/L (3.5-5.1)
[2020-12-22] MEDS: ALBUT/IPRATROP 3MG/0.5MG NEB 3 ML VIAL NEB SCH ×2 (07:30→19:19)
[2020-12-22] MEDS: ACETYLCYSTEINE 20% INHAL SOLN 4ML ***DISPENSED BY RESP. INH SCH ×2 (07:31→19:20)
--- NOTE | 2020-12-22 07:53 | XRay Report ---
SINGLE VIEW CHEST CLINICAL HISTORY: Hypoxia. FINDINGS: An AP, portable, upright chest radiograph is compared to study dated 12/21/2020 and correlat ed with chest CT dated 12/17/2020. The examination is degraded by portable technique and patient rotat ion. The heart is enlarged noting atherosclerotic calcification of the thoracic aorta. There is pulmo nary vascular congestion. There is volume loss and postoperative change in the left lung. Multifocal airspace consolidation throughout the left lung is unchanged. There is increasing consolidation at th e right lung base. Small pleural effusions are noted. No pneumothorax is seen. The skeletal structure s are osteopenic. The bony thorax is grossly intact. IMPRESSION: 1. Multifocal airspace consolidation throughout the left lung is unchanged. 2. There is increasing airspace consolidation at the right lung base. 3. Cardiomegaly with pulmonary vascular congestion and small pleural effusions. ACT 112: Negative or not required by law. Electronically signed by: Reji Almonte M.D. 12/22/2020 7:52 AM
[2020-12-22] MEDS: PSYLLIUM 58.6% POWDER PACKET PO SCH (08:20)
[2020-12-22] MEDS: ATENOLOL 25 MG TABLET PO SCH (08:20)
[2020-12-22] MEDS: POTASSIUM CHLORIDE 10 MEQ TABCR PO SCH (08:20)
[2020-12-22] MEDS: SPIRONOLACTONE 25 MG TAB PO SCH (08:20)
[2020-12-22] MEDS: guaiFENesin 600 MG TABCR PO SCH ×2 (08:20→20:20)
[2020-12-22] MEDS: SODIUM CHLORIDE 1 GM TABLET PO SCH (08:21)
--- NOTE | 2020-12-22 08:32 | Pulmonology Progress Note ---
Date of Service December 22, 2020 Assessment & Plan (1) Aspiration pneumonia: (2) Acute respiratory failure with hypoxia: (3) Cough: (4) Pulmonary hypertension: Plan: X-ray 12/17/2020 personally reviewed: Blunting of the left costophrenic angle, increased opacification of the left hemithorax, possibility of left lower lobe collapse. Right costophrenic angle clean, increased hilar vascular marking Patient did have chest x-ray on 11/29/2020 which did not show any s ignificant infiltrate at that time. --Acute hypoxic respiratory failure Likely secondary to aspiration pneumonia with multilobar infiltrates Keep the patient on aspiration precautions S/p bronchoscopy 12/18/2020 with large mucous plug on the left side S/p rebronchoscopy 12/21/2020 with mucous plugging on the left side, less severe compared to the 12/18/2020 O2 supplementation to keep oxygen saturation between 88-92% --Poor cough effort Patient has very poor cough effort He already collapsed left side of the lung partly because of that He will need CoughAssist as well as chest vest therapy when he goes home Would recommend social work involvement for it --Pulmonary hypertension Likely type II --Morbid obesity with probable JAMILA BiPAP nightly and as needed shortness of breath --A. fib On Xarelto --DNR/DNI Plan: Chest x-ray still shows persistent left lower lobe infiltrate. Left upper lobe is clearing up. Given the chronic aspiration of saliva, patient will have repeatative episodes of aspiration. Unfortunately there is not much to offer from pulmonary perspective. We will follow peripherally. Call directly with any questions. CoughAssist as well as chest vest therapy when he goes home Can resume Xarelto. Please note the above document was generated using voice recognition software. It may contain grammatical, syntax or spelling errors.Any formal questions or concerns about the content, text or information contained within the body of this dictation should be directly addressed to the provider for clarification. Admission and Anticipated Discharge Date Admission Date: December 14, 2020 Subjective Patient seen and examined at bedside. No acute distress. Patient was sleeping during examination. On oxygen mask Afebrile Denies any complete. Review of Systems Review of Systems: All systems reviewed & are unremarkable except as noted in Subjective and Unobtainable due to mental health condition Physical Exam Physical Exam: Constitutional: No acute distress HEENT: EOMI, PERRLA, hard to hear Respiratory system: Decreased air entry in the left side, no wheeze, rhonchi, positive crackles left lower lobe CVS: S1-S2 positive, no murmurs or gallops Abdomen: Soft, nontender, nondistended, positive bowel sounds x4 Extremities: +2 pulses bilaterally radialis/ dorsalis pedis, no cyanosis, +1 pitting edema bilateral lower extremity Neuro: Awake alert oriented to self and place Psych: Normal mood and affect G/U: Positive Lr Skin: no rashes, warm and dry Lymphatic: no cervical or axillary lymphadenopathy Results & Data Results & Data ([facility]) Vital Signs (Past 12 Hours) Vital Signs Temp Pulse Pulse Resp BP Pulse Ox 12/22/20 08:00 36.2 C L 81 20 158/72 H 100 12/22/20 07:33 88 20 94 12/22/20 04:46 77 24 99 12/22/20 04:00 36.4 C L 83 20 169/74 H 94 12/22/20 00:14 36.7 C 67 18 140/64 97 12/21/20 22:24 81 12/21/20 09:56 12/22/20 06:25 PG Care Time/CCT Total # of Minutes Spent Total Time Spent with Patient: Total time spent is greater than 50% in coordination of care (as documented) at patient's floor/unit and/or counseling patient: Coding Level of Care Code 80928 Subseq Hosp Care Lvl 2 Diagnoses Aspiration pneumonia J69.0 Acute respiratory failure with hypoxia J96.01 Cough R05 Pulmonary hypertension I27.20
--- NOTE | 2020-12-22 10:24 | Hospitalist Progress Note ---
Date of Service December 22, 2020 Assessment & Plan (1) Acute respiratory failure with hypoxia: Plan: Secondary to mucous plugging and recurrent aspiration pneumonia causing recurrent collapse of left lung Bronchoscopy 12/18/20 with copious amounts of mucus and large mucous plug straddling the right and left main bronchus Repeat bronchoscopy on 12/21 again with thick hardened large amount of mucus secretions suctioned out of left lung Acetylcysteine introduced via bronchoscopy Has very poor cough effort BAL cultures, AFB, and fungal smear all pending. Cytology shows no malignant cells but with abundant acute inflammatory cells and necrotic debris present -Continue acetylcysteine nebulizer every 12 hours -Restart Xarelto per pulm recommendations -Continue with [id number] and Pneumovax -Case management should be consulted for assisting with obtaining CoughAssist machine as well as chest vest therapy for home use as per pulmonary recommendation Continue supplemental O2 to keep pulse ox greater than 92% - if decompensates again here ok to use non-invasive ventilation but no intubation, aware of poor intermediate manager prognosis but patient has little insight to make decisions. (2) Aspiration pneumonia: Plan: Video swallow study here showed: * Silent aspiration of all liquid bolus presentations * No palak aspiration of pudding or crackers however there was residual in the vallecula and piriform sinuses * Attempted strategy use were ineffective * Patient with severe pharyngeal stage dysphagia Patient not able to effectively use throat clearing and cleansing swallows to clear material in the laryngeal vestibule. Diet modification not particularly helpful Focus on good oral hygiene to minimize oral bacteria Continue with aspiration precautions Patient would benefit from supervised feedings Single bites/small sips/slow rate No straws Continue Unasyn Follow BAL cultures Will switch to minced and moist diet as he was getting large pieces of meat and prefers to eat the potatoes anyway. (3) Metabolic encephalopathy: Plan: Mentation seems to be improving but still with short-term memory loss which contributes to Lupron therapy previously Possible metabolic encephalopathy due to hyponatremia Sodium level stable to improved Seems to be at his baseline mental status at this time (4) Acute hyponatremia: Plan: With a history of chronic hyponatremia in the setting of chronic diastolic CHF with baseline sodium 124-130s With acute hyponatremia upon admission with a sodium of 120 Was given multiple doses of tolvaptan Patient also on multiple diuretics Fluid status has been difficult to manage secondary to patient's use of Aldactone, Zaroxolyn, Bumex Diuretics have been held for rising creatinine-okay to continue spironolactone Nephrology following as well. Appreciate Drs. Mendoza and Farhad's [id number] IV fluids Follow serial labs, urine osmolality remaining around 370 Continue sodium chloride 2 g p.o. twice daily (5) Acute on chronic diastolic (congestive) heart failure: Plan: Follows with the heart clinic Discussed patient with Erlinda Martino PA-C, heart clinical trial leader Slowly reintroduce diuretics when okay with nephrology For now, remains on normal saline due to overdiuresis (6) Acute UTI: Plan: Urine culture with mixed organisms Urinalysis had 4+ bacteria and greater than 30 whites with 0 epithelial cells Received ceftriaxone in the emergency room on 12/14/2020, followed by ciprofloxacin x3 days, now on Unasyn as above for aspiration Has Lr catheter in place-need to assess when okay to remove Unclear why Lr catheter was placed on 12/15 Need to do trial of void prior to discharge Just completed recent radiation therapy for prostate cancer (7) Stage 3b chronic kidney disease: Plan: Baseline creatinine appears to be 1.4-1.5. Creatinine was up to 1.43 nephrology giving normal saline And Bumex was held, now creatinine down to 1.12, Follow serial labs (8) Atrial fibrillation: Plan: Permanent atrial fibrillation Chronically anticoagulated with rivaroxaban Which has been held for bronchoscopy.-Pulmonology recommends continuing to hold for 2 days further given oozing of blood and friable tissue after bronchoscopy Rates are well controlled Continue home atenolol Monitor on telemetry (9) Pulmonary hypertension: Plan: Likely type II Continue oxygen supplementation and diuretics as tolerated (10) Hypertension: Plan: Well-controlled Continue atenolol Vital signs per protocol (11) Memory loss: Plan: This seems to be slightly improved today but does continue to have have significant decline Continue repletion of electrolytes to maintain balance Continue supplemental oxygen and BiPAP to control hypercapnia CT head with no acute findings (12) BPH NOS w ur obs/LUTS: Plan: With a history of prostate cancer status post recent radiation therapy Continue tamsulosin Lr catheter in place but needs trial of void in the near future Follow strict I's and O's (13) Hypokalemia: Plan: Potassium levels been climbing secondary to holding of diuretics Change potassium supplement from home dose of 30 mEq p.o. 3 times daily to 30 mEq once daily Monitor daily labs (14) Hx of gout: Plan: Continue allopurinol (15) Prostate cancer: Plan: Status post recent radiation therapy (16) DVT prophylaxis: Plan: Rivaroxaban held secondary to procedures Ambulate as tolerated Continue to hold anticoagulation for repeat bronchoscopy Plan: Disposition: Long discussion with patient and Patient now with significant non-reversible dysphagia Multisystem issues now progressing Patient and agree to palliative care consult to discuss goals of care and patient aware that we may need to focus on quality of life Also discussed that patient may have deteriorated to the point that he may not be able to return home. [facility] holding [facility] bed for him. Will continue discussion. Hopeful for discharge to SNF in the next 2 to 3 days if pulmonary issues improve and does not need continued serial bronchoscopy Admission and Anticipated Discharge Date Admission Date: December 14, 2020 Subjective Patient is short of breath at rest but reports he is mostly at his baseline. Not getting any worse. Confusion is at baseline. Aspirates on own secretions. Choosing to eat potatoes but also being served steak. Extensive conversation with his at bedside regarding continued risk of aspiration and potentially leaving on hospice care. Review of Systems Review of Systems: All systems reviewed & are unremarkable except as noted in HPI & below Physical Exam Constitutional: WD/WN, vitals as above + obese Eyes: + anicteric sclerae Neck: trachea midline, no thyromegaly Respiratory: Auscultation: + rhonchi (On left middle and lower lung hurley); no wheezes Cardiovascular: Rate/Rhythm: regular rate and + irregularly irregular Extremities: + edema (2+ pitting edema of the bilateral lower extremities) Gastrointestinal (Abdomen): normal bowel sounds, soft, nontender, no hepatosplenomegaly Musculoskeletal: Extremities: no cyanosis and no clubbing Skin: no rashes, warm and dry Neurologic: moves all extremities and awake; no focal motor deficits Psychiatric: Orientation: alert, oriented to person, oriented to place and cooperative Results & Data Results & Data ([facility]) Vital Signs (Past 12 Hours) Vital Signs Temp Pulse Pulse Resp BP Pulse Ox 12/22/20 08:00 36.2 C L 81 20 158/72 H 100 12/22/20 07:33 88 20 94 12/22/20 04:46 77 24 99 12/22/20 04:00 36.4 C L 83 20 169/74 H 94 12/22/20 00:14 36.7 C 67 18 140/64 97 12/21/20 22:24 81 PG Care Time/CCT Total # of Minutes Spent Total Time Spent with Patient: Total time spent is greater than 50% in coordination of care (as documented) at patient's floor/unit and/or counseling patient: Coding Level of Care Code 45826 Subseq Hosp Care Lvl 2 Diagnoses Metabolic encephalopathy G93.41 Acute hyponatremia E87.1 Acute respiratory failure with hypoxia J96.01 Aspiration pneumonia J69.0 Acute on chronic diastolic (congestive) heart failure I50.33 Acute UTI N39.0 Stage 3b chronic kidney disease N18.32 Atrial fibrillation I48.21 Atrial fibrillation type: permanent Pulmonary hypertension I27.20 Hypertension I10 Memory loss R41.3 BPH NOS w ur obs/LUTS N40.1 Hypokalemia E87.6 Hx of gout Z87.39 Prostate cancer C61 DVT prophylaxis Z29.9 (1) Atrial fibrillation Atrial fibrillation type: permanent Qualified Code(s): I48.21 - Permanent atrial fibrillation
[2020-12-22] MEDS: allopurinoL 100 MG TAB PO SCH (11:02)
--- NOTE | 2020-12-22 12:12 | Nephrology Progress Note ---
Date of Service December 22, 2020 Assessment & Plan (1) Acute hyponatremia: Plan: Sodium improved to baseline. Volume status acceptable. Oral fluid intake limited. Oral NaCl provided this AM but will now be held. Kidney function stable. Electrolytes otherwise within normal limits. Remains on oral KCl. Repeat metabolic profile tomorrow AM. (2) Lower extremity edema: Plan: Chronic, stable. Volume status relatively euvolemic. IVF stopped and diuretics held. Remains on low dose spironolactone. (3) Chronic diastolic CHF (congestive heart failure): Plan: Not decompensated currently. Diuretics held. No NIKOS/ARB due to kidney dysfunction. Remains on low dose spironolactone. Heart rate reasonably controlled with atenolol. (4) Stage 3b chronic kidney disease: Plan: Creatinine stable. Medications appropriate for kidney function. Admission and Anticipated Discharge Date Admission Date: December 14, 2020 Subjective No acute events overnight. Mauricio states that he feels reasonably well this AM but notably weak and deconditioned. Breathing comfortably. No fevers or chills. Review of Systems Constitutional: no weight loss, no weight gain and no problem reported Eyes: no problem reported Ear, Nose, Mouth, Throat: no problem reported Respiratory: no problem reported Cardiovascular: no problem reported Gastrointestinal: no problem reported Musculoskeletal: no problem reported Integumentary: no problem reported Neurologic: no problem reported Psychiatric: no problem reported Endocrine: no problem reported Hematologic / Lymphatic: no problem reported Physical Exam Constitutional: well developed; no acute distress Eyes: no scleral abnormality and no corneal abnormality ENMT: Mouth: no oral mucosal abnormality and oral mucous membranes not dry Neck: normal visual inspection and trachea midline Respiratory: normal respiratory effort Auscultation: lungs clear to auscultation bilaterally Cardiovascular: Rate/Rhythm: regular rate Heart Sounds: normal S1 and normal S2 Extremities: no edema Musculoskeletal: Extremities: no cyanosis and no clubbing Skin: normal turgor; no lesions Neurologic: Motor/Sensory: no tremor and no asterixis Psychiatric: Orientation: alert and oriented x 3 Results & Data ([facility]) Vital Signs (Past 12 Hours) Vital Signs Temp Pulse Pulse Resp BP Pulse Ox 12/22/20 11:00 36.3 C L 101 H 20 132/65 92 12/22/20 08:00 36.2 C L 81 20 158/72 H 100 12/22/20 07:33 88 20 94 12/22/20 04:46 77 24 99 12/22/20 04:00 36.4 C L 83 20 169/74 H 94 12/22/20 00:14 36.7 C 67 18 140/64 97 Laboratory Results Laboratory Results - last 24 hr 12/21/20 12/22/20 17:22 06:25 Sodium 134 L Potassium 4.3 Chloride 103 Carbon Dioxide 25 Anion Gap 5.0 BUN 53 H Creatinine 1.03 Est Cr Clr Drug Dosing 72.4 Est GFR ( Amer) 79.7 Est GFR (Non-Af Amer) 68.8 BUN/Creatinine Ratio 51.7 H Glucose 115 H Calcium 8.8 Phosphorus 2.6 Albumin 2.7 L Urine Osmolality 387 L PG Care Time/CCT Total # of Minutes Spent Total Time Spent with Patient: Total time spent is greater than 50% in coordination of care (as documented) at patient's floor/unit and/or counseling patient: Coding Level of Care Code 10767 Subseq Hosp Care Lvl 3 Diagnoses Acute hyponatremia E87.1 Lower extremity edema R60.0 Chronic diastolic CHF (congestive heart failure) I50.32 Stage 3b chronic kidney disease N18.32
[2020-12-22] MEDS: TAMSULOSIN HCL 0.4 MG CAP PO SCH (17:52)
[2020-12-23] MEDS ORDERED: ONDANSETRON INJ 2 MG/ML 2 ML VIAL IV PRN (03:12)
[2020-12-23] MEDS: AMPICILLIN/SULBACTAM SOD 3,000 MG in 0.9 % SODIUM CHLORIDE 100 ML IV SCH ×4 (04:30→22:52)
[2020-12-23] MEDS: ACETYLCYSTEINE 20% INHAL SOLN 4ML ***DISPENSED BY RESP. INH SCH ×2 (07:05→19:33)
[2020-12-23] MEDS: ALBUT/IPRATROP 3MG/0.5MG NEB 3 ML VIAL NEB SCH ×2 (07:06→19:33)
[2020-12-23] MEDS: guaiFENesin 600 MG TABCR PO SCH ×2 (09:34→21:21)
[2020-12-23] MEDS: ATENOLOL 25 MG TABLET PO SCH (09:35)
[2020-12-23] MEDS: SPIRONOLACTONE 25 MG TAB PO SCH (09:35)
[2020-12-23] MEDS: POTASSIUM CHLORIDE 10 MEQ TABCR PO SCH (09:35)
[2020-12-23] MEDS: PSYLLIUM 58.6% POWDER PACKET PO SCH (09:36)
[2020-12-23] MEDS: ACETAMINOPHEN 325 MG TAB PO PRN (11:27)
[2020-12-23] MEDS: RIVAROXABAN 15 MG TAB PO SCH (11:27)
[2020-12-23] MEDS: allopurinoL 100 MG TAB PO SCH (11:29)
--- NOTE | 2020-12-23 13:01 | Hospitalist Progress Note ---
Date of Service December 23, 2020 Assessment & Plan (1) Acute respiratory failure with hypoxia: Plan: Secondary to mucous plugging and recurrent aspiration pneumonia causing recurrent collapse of left lung Bronchoscopy 12/18/20 with copious amounts of mucus and large mucous plug straddling the right and left main bronchus Repeat bronchoscopy on 12/21 again with thick hardened large amount of mucus secretions suctioned out of left lung Acetylcysteine introduced via bronchoscopy Has very poor cough effort BAL cultures, AFB, and fungal smear all pending. 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 (2) Aspiration pneumonia: Plan: Video swallow study here showed: * Silent aspiration of all liquid bolus presentations * No palak aspiration of pudding or crackers however there was residual in the vallecula and piriform sinuses * Attempted strategy use were ineffective * Patient with severe pharyngeal stage dysphagia Patient not able to effectively use throat clearing and cleansing swallows to clear material in the laryngeal vestibule. Diet modification not particularly helpful Focus on good oral hygiene to minimize oral bacteria Continue with aspiration precautions Patient would benefit from supervised feedings Single bites/small sips/slow rate No straws Continue Unasyn Follow BAL cultures Will switch to minced and moist diet as he was getting large pieces of meat and prefers to eat the potatoes anyway. (3) Metabolic encephalopathy: Plan: Mentation seems to be improving but still with short-term memory loss which contributes to Lupron therapy previously Possible metabolic encephalopathy due to hyponatremia Sodium level stable to improved Seems to be at his baseline mental status at this time (4) Acute hyponatremia: Plan: With a history of chronic hyponatremia in the setting of chronic diastolic CHF with baseline sodium 124-130s With acute hyponatremia upon admission with a sodium of 120 Was given multiple doses of tolvaptan Patient also on multiple diuretics Fluid status has been difficult to manage secondary to patient's use of Aldactone, Zaroxolyn, Bumex Diuretics have been held for rising creatinine-okay to continue spironolactone Nephrology following as well. Appreciate Drs. Mendoza and Farhad's [id number] normal saline at 80 mL's per hour today Follow serial labs, urine osmolality remaining around 370 Continue sodium chloride 2 g p.o. twice daily (5) Acute on chronic diastolic (congestive) heart failure: Plan: Follows with the heart clinic Discussed patient with Erlinda Martino PA-C, heart access clinician Slowly reintroduce diuretics when okay with nephrology For now, remains on normal saline due to overdiuresis (6) Acute UTI: Plan: Urine culture with mixed organisms Urinalysis had 4+ bacteria and greater than 30 whites with 0 epithelial cells Received ceftriaxone in the emergency room on 12/14/2020, followed by ciprofloxacin x3 days, now on Unasyn as above for aspiration Has Lr catheter in place-need to assess when okay to remove Unclear why Lr catheter was placed on 12/15 Need to do trial of void prior to discharge Just completed recent radiation therapy for prostate cancer (7) Stage 3b chronic kidney disease: Plan: Baseline creatinine appears to be 1.4-1.5. Creatinine was up to 1.43 nephrology giving normal saline And Bumex was held, now creatinine down to 1.12, Follow serial labs (8) Atrial fibrillation: Plan: Permanent atrial fibrillation Chronically anticoagulated with rivaroxaban Which has been held for bronchoscopy.-Pulmonology recommends continuing to hold for 2 days further given oozing of blood and friable tissue after bronchoscopy Rates are well controlled Continue home atenolol Monitor on telemetry (9) Pulmonary hypertension: Plan: Likely type II Continue oxygen supplementation and diuretics as tolerated (10) Hypertension: Plan: Well-controlled Continue atenolol Vital signs per protocol (11) Memory loss: Plan: This seems to be slightly improved today but does continue to have have significant decline Continue repletion of electrolytes to maintain balance Continue supplemental oxygen and BiPAP to control hypercapnia CT head with no acute findings (12) BPH NOS w ur obs/LUTS: Plan: With a history of prostate cancer status post recent radiation therapy Continue tamsulosin Lr catheter in place but needs trial of void in the near future Follow strict I's and O's (13) Hypokalemia: Plan: Potassium levels been climbing secondary to holding of diuretics Change potassium supplement from home dose of 30 mEq p.o. 3 times daily to 30 mEq once daily Monitor daily labs (14) Hx of gout: Plan: Continue allopurinol (15) Prostate cancer: Plan: Status post recent radiation therapy (16) DVT prophylaxis: Plan: Rivaroxaban held secondary to procedures Ambulate as tolerated Continue to hold anticoagulation for repeat bronchoscopy Plan: Disposition: Long discussion with patient and Patient now with significant non-reversible dysphagia Multisystem issues now progressing Patient and agree to palliative care consult to discuss goals of care and patient aware that we may need to focus on quality of life Also discussed that patient may have deteriorated to the point that he may not be able to return home. [facility] holding [facility] bed [facility] him. Will continue discussion. Hopeful for discharge to SNF in the next 2 to 3 days if pulmonary issues improve and does not need continued serial bronchoscopy Admission and Anticipated Discharge Date Admission Date: December 14, 2020 Subjective No shortness of breath. Hypoxia at baseline on 4LPM. No acute events overnight. Review of Systems Review of Systems: Unobtainable due to cognitive status Physical Exam Constitutional: + obese Eyes: + anicteric sclerae Neck: trachea midline, no thyromegaly Respiratory: + cough; no respiratory distress Auscultation: + rhonchi (Left, upper airway sounds b/l); no wheezes Cardiovascular: Rate/Rhythm: regular rate and + irregularly irregular Extremities: + edema (2+ pitting edema of the bilateral lower extremities) Gastrointestinal (Abdomen): normal bowel sounds, soft, nontender, no hepatosplenomegaly Skin: no rashes, warm and dry Neurologic: moves all extremities and awake; no focal motor deficits Psychiatric: Orientation: alert, oriented to person, oriented to place and cooperative Results & Data Results & Data ([facility]) Vital Signs (Past 12 Hours) Vital Signs Temp Pulse Pulse Pulse Resp BP Pulse Ox 12/23/20 07:30 37.3 C 85 18 138/75 99 12/23/20 07:28 71 26 H 99 12/23/20 07:12 87 18 100 12/23/20 03:19 98 12/23/20 01:19 99 PG Care Time/CCT Total # of Minutes Spent Total Time Spent with Patient: Total time spent is greater than 50% in coordination of care (as documented) at patient's floor/unit and/or counseling patient: Coding Level of Care Code 77462 Subseq Hosp Care Lvl 1 Diagnoses Acute respiratory failure with hypoxia J96.01 Aspiration pneumonia J69.0 Metabolic encephalopathy G93.41 Acute hyponatremia E87.1 Acute on chronic diastolic (congestive) heart failure I50.33 Acute UTI N39.0 Stage 3b chronic kidney disease N18.32 Atrial fibrillation I48.21 Atrial fibrillation type: permanent Pulmonary hypertension I27.20 Hypertension I10 Memory loss R41.3 BPH NOS w ur obs/LUTS N40.1 Hypokalemia E87.6 Hx of gout Z87.39 Prostate cancer C61 DVT prophylaxis Z29.9 (1) Atrial fibrillation Atrial fibrillation type: permanent Qualified Code(s): I48.21 - Permanent atrial fibrillation
--- NOTE | 2020-12-23 13:43 | Nephrology Progress Note ---
Date of Service December 23, 2020 Assessment & Plan (1) Acute hyponatremia: Plan: Volume status acceptable. Oral fluid intake limited. Oral NaCl held. Kidney function stable. Electrolytes otherwise within normal limits. Remains on oral KCl. (2) Lower extremity edema: Plan: Chronic, stable. Volume status relatively euvolemic. Remains on low dose spironolactone. (3) Chronic diastolic CHF (congestive heart failure): Plan: Not decompensated currently. Bumex held. No NIKOS/ARB due to kidney dysfunction. Remains on low dose spironolactone. Heart rate reasonably controlled with atenolol. (4) Stage 3b chronic kidney disease: Plan: Creatinine stable. Medications appropriate for kidney function. Admission and Anticipated Discharge Date Admission Date: December 14, 2020 Subjective No acute events overnight. Noted weakness. Denies significant dyspnea. I spoke in detail with Mauricio's (Cindy) this AM). Review of Systems Review of Systems: detailed review of system was otherwise unremarkable. Constitutional: no problem reported Eyes: no problem reported Ear, Nose, Mouth, Throat: no problem reported Respiratory: no problem reported Cardiovascular: no problem reported Gastrointestinal: no problem reported Musculoskeletal: no problem reported Integumentary: no problem reported Neurologic: no problem reported Psychiatric: no problem reported Endocrine: no problem reported Hematologic / Lymphatic: no problem reported Physical Exam Constitutional: well developed; no acute distress Eyes: no scleral abnormality and no corneal abnormality ENMT: Mouth: no oral mucosal abnormality and oral mucous membranes not dry Neck: normal visual inspection and trachea midline Respiratory: normal respiratory effort Auscultation: lungs clear to auscultation bilaterally Cardiovascular: Rate/Rhythm: regular rate Heart Sounds: normal S1 and normal S2 Extremities: no edema Musculoskeletal: Extremities: no cyanosis and no clubbing Skin: normal turgor; no lesions Neurologic: Motor/Sensory: no tremor and no asterixis Psychiatric: Orientation: alert and oriented x 3 Results & Data ([facility]) Vital Signs (Past 12 Hours) Vital Signs Temp Pulse Pulse Pulse Resp BP Pulse Ox 12/23/20 07:30 37.3 C 85 18 138/75 99 12/23/20 07:28 71 26 H 99 12/23/20 07:12 87 18 100 12/23/20 03:19 98 Laboratory Results Laboratory Results - last 24 hr 12/22/20 20:14 POC Glucose 135 H PG Care Time/CCT Total # of Minutes Spent Total Time Spent with Patient: Total time spent is greater than 50% in coordination of care (as documented) at patient's floor/unit and/or counseling patient: Coding Level of Care Code 79525 Subseq Hosp Care Lvl 3 Diagnoses Acute hyponatremia E87.1 Lower extremity edema R60.0 Chronic diastolic CHF (congestive heart failure) I50.32 Stage 3b chronic kidney disease N18.32
[2020-12-23 15:01] LABS: BUN Creatinine Ratio 49.6 (10-20); Calcium 8.6 mg/dl (8.5-10.1); Creatinine Clr Calc Pharmacy 60.2 ml/min; Est GFR (African American) 63.7 ml/min; Est GFR (Non-African American) 54.9 ml/min; Potassium 4.8 mmol/L (3.5-5.1)
[2020-12-23] MEDS: TAMSULOSIN HCL 0.4 MG CAP PO SCH ×2 (16:00→17:32)
[2020-12-24] MEDS: AMPICILLIN/SULBACTAM SOD 3,000 MG in 0.9 % SODIUM CHLORIDE 100 ML IV SCH ×2 (03:27→09:51)
[2020-12-24 06:38] LABS: Hemoglobin 10.8 g/dL (14.0-18.0); Mean Corpuscular Hemoglobin 33.8 pg (25-34); Mean Corpuscular Hgb Conc 31.8 g/dL (32-36); Mean Corpuscular Volume 106.3 fL (80-100); Mean Platelet Volume 10.6 fL (7.4-10.4); Nucleated RBC # (auto) 0.02 K/uL (0-0); Nucleated RBC % (auto) 0.4 %; Platelet Count 143 K/uL (130-400); RDW Coefficient of Variation 18.4 % (11.5-14.5); RDW Standard Deviation 72.5 fL (36.4-46.3); White Blood Count 5.39 K/uL (4.8-10.8)
[2020-12-24 07:14] LABS: BUN Creatinine Ratio 47.4 (10-20); Calcium 8.9 mg/dl (8.5-10.1); Creatinine Clr Calc Pharmacy 59.7 ml/min; Est GFR (African American) 63.1 ml/min; Est GFR (Non-African American) 54.4 ml/min; Potassium 4.9 mmol/L (3.5-5.1)
[2020-12-24] MEDS: ALBUT/IPRATROP 3MG/0.5MG NEB 3 ML VIAL NEB SCH ×2 (07:52→20:17)
[2020-12-24] MEDS: ACETYLCYSTEINE 20% INHAL SOLN 4ML ***DISPENSED BY RESP. INH SCH ×2 (07:52→20:17)
[2020-12-24] MEDS: SPIRONOLACTONE 25 MG TAB PO SCH ×2 (08:17→08:35)
[2020-12-24] MEDS: guaiFENesin 600 MG TABCR PO SCH ×3 (08:17→19:54)
[2020-12-24] MEDS: RIVAROXABAN 15 MG TAB PO SCH ×2 (08:18→08:36)
[2020-12-24] MEDS: ATENOLOL 25 MG TABLET PO SCH ×2 (08:18→08:35)
[2020-12-24] MEDS: PSYLLIUM 58.6% POWDER PACKET PO SCH (08:19)
[2020-12-24] MEDS: POTASSIUM CHLORIDE 10 MEQ TABCR PO SCH ×2 (08:25→08:35)
--- NOTE | 2020-12-24 08:45 | XRay Report ---
XR chest 1V portable CLINICAL HISTORY: hypoxia ?worsening pulmonary edema COMPARISON STUDY: Chest radiograph December 22, 2020 FINDINGS: There is no pneumothorax. Suspected small left pleural effusion is noted. Extensive opacifi cation of the left hemithorax has significantly increased. Right lung airspace opacity with right bas ilar consolidation has also increased. There is no pneumothorax. IMPRESSION: 1. Significant increase in extensive left lung airspace opacity with volume loss. 2. Increase in multifocal right lung airspace opacities which favors pneumonia. ACT 112: Negative or not required by law. Electronically signed by: Matt Bright M.D. 12/24/2020 8:44 AM
--- NOTE | 2020-12-24 10:43 | Nephrology Progress Note ---
Date of Service December 24, 2020 Assessment & Plan (1) Acute hyponatremia: Plan: Volume status acceptable. Oral NaCl held. Sodium stable. Kidney function stable. Electrolytes otherwise within normal limits. Continue oral KCl as tolerated. Virtual visit follow up will be arranged with me in the nephrology clinic. Plan of care reviewed with Mauricio's (Cindy). (2) Lower extremity edema: Plan: Chronic, stable. Volume status relatively euvolemic. Remains on low dose spironolactone. (3) Chronic diastolic CHF (congestive heart failure): Plan: Not decompensated currently. Bumex held. No NIKOS/ARB due to kidney dysfunction. Remains on low dose spironolactone. Heart rate reasonably controlled with atenolol. (4) Stage 3b chronic kidney disease: Plan: Creatinine stable. Medications appropriate for kidney function. Admission and Anticipated Discharge Date Admission Date: December 14, 2020 Subjective No acute events overnight. Mauricio is looking forward to discharge today. Review of Systems Constitutional: no problem reported Eyes: no problem reported Ear, Nose, Mouth, Throat: no problem reported Respiratory: no problem reported Cardiovascular: no problem reported Gastrointestinal: no problem reported Musculoskeletal: no problem reported Integumentary: no problem reported Neurologic: no problem reported Psychiatric: no problem reported Endocrine: no problem reported Hematologic / Lymphatic: no problem reported Physical Exam Constitutional: well developed; no acute distress Eyes: no scleral abnormality and no corneal abnormality ENMT: Mouth: no oral mucosal abnormality and oral mucous membranes not dry Neck: normal visual inspection and trachea midline Respiratory: normal respiratory effort Auscultation: lungs clear to auscultation bilaterally Cardiovascular: Rate/Rhythm: regular rate Heart Sounds: normal S1 and normal S2 Extremities: no edema Musculoskeletal: Extremities: no cyanosis and no clubbing Skin: normal turgor; no lesions Neurologic: Motor/Sensory: no tremor and no asterixis Psychiatric: Orientation: alert and oriented x 3 Results & Data ([facility]) Vital Signs (Past 12 Hours) Vital Signs Temp Pulse Pulse Resp BP Pulse Ox 12/24/20 08:00 36.6 C 74 16 133/81 100 12/24/20 07:52 76 20 98 12/24/20 06:14 83 28 H 98 Laboratory Results Laboratory Results - last 24 hr 12/23/20 12/24/20 12/24/20 14:03 06:00 06:00 WBC 5.39 RBC 3.20 L Hgb 10.8 L Hct 34.0 L MCV 106.3 H MCH 33.8 MCHC 31.8 L RDW Std Deviation 72.5 H RDW Coeff of Anthony 18.4 H Plt Count 143 MPV 10.6 H Absolute Nucleated RBC 0.02 H Nucleated RBC % (auto) 0.4 Sodium 134 L 134 L Potassium 4.8 4.9 Chloride 104 104 Carbon Dioxide 25 24 Anion Gap 6.0 6.0 BUN 62 H 59 H Creatinine 1.24 1.25 Est Cr Clr Drug Dosing 60.2 59.7 Est GFR ( Amer) 63.7 63.1 Est GFR (Non-Af Amer) 54.9 54.4 BUN/Creatinine Ratio 49.6 H 47.4 H Glucose 109 H 112 H Calcium 8.6 8.9 PG Care Time/CCT Total # of Minutes Spent Total Time Spent with Patient: Total time spent is greater than 50% in coordination of care (as documented) at patient's floor/unit and/or counseling patient: Coding Level of Care Code 59919 Subseq Hosp Care Lvl 3 Diagnoses Acute hyponatremia E87.1 Lower extremity edema R60.0 Chronic diastolic CHF (congestive heart failure) I50.32 Stage 3b chronic kidney disease N18.32
[2020-12-24] MEDS: allopurinoL 100 MG TAB PO SCH (12:19)
--- NOTE | 2020-12-24 14:44 | Palliative Care Progress Note ---
Date of Service December 24, 2020 Assessment & Plan (1) Dyspnea: Plan: Improved with diuresis. Likely to be ongoing problem with aspiration. Discussed symptom management with opioids and anxiolytics with his . (2) Palliative care encounter: Plan: Goal [facility] with focus on comfort. He will likely be skilled care on admission to SNF. Discussed this with his . He can be transitioned to hospice if he no longer qualifies for skilled care and social work at the facility can help her with this. POLST was reviewed and completed for DNR, comfort measures only, no antibiotics or artificial nutrition. (3) Aspiration pneumonia: (4) Acute on chronic diastolic (congestive) heart failure: Admission and Anticipated Discharge Date Admission Date: December 14, 2020 Subjective Resting comfortably. Denies pain, dyspnea of anxiety. Review of Systems Review of Systems: [place] Symptom Assessment Scale Pain 0/3 Dyspnea 0/3 Anxiety 1/3 Fatigue 2/3 Nausea 0/3 Drowsiness 1/3 Palliative Performance Score 30% Physical Exam Constitutional: + ill appearing; no acute distress ENMT: Mouth: + dry oral mucous membranes Respiratory: + uses accessory muscles; no respiratory distress Cardiovascular: Extremities: + edema Gastrointestinal (Abdomen): Inspection/Auscultation: + significant pannus Neurologic: awake and + confused Results & Data ([facility]) Vital Signs (Past 12 Hours) Vital Signs Temp Pulse Pulse Resp BP Pulse Ox 12/24/20 08:00 97.9 F 74 16 133/81 100 12/24/20 07:52 76 20 98 12/24/20 06:14 83 28 H 98 PG Care Time/CCT Total # of Minutes Spent Total Time Spent: 45 Total Time Spent with Patient: Total time spent is greater than 50% in coordination of care (as documented) at patient's floor/unit and/or counseling patient: symptom management, goals of care, hospice, POLST Coding Level of Care Code 84530 Subseq Hosp Care Lvl 3 Diagnoses Dyspnea R06.00 Palliative care encounter Z51.5 Aspiration pneumonia J69.0 Acute on chronic diastolic (congestive) heart failure I50.33
[2020-12-24] MEDS: TAMSULOSIN HCL 0.4 MG CAP PO SCH (17:00)
--- NOTE | 2020-12-24 18:11 | Hospitalist Progress Note ---
Date of Service December 24, 2020 Assessment & Plan (1) Acute respiratory failure with hypoxia: Plan: Secondary to mucous plugging and recurrent aspiration pneumonia causing recurrent collapse of left lung Bronchoscopy 12/18/20 with copious amounts of mucus and large mucous plug straddling the right and left main bronchus Repeat bronchoscopy on 12/21 again with thick hardened large amount of mucus secretions suctioned out of left lung Acetylcysteine introduced via bronchoscopy Has very poor cough effort -Continue acetylcysteine nebulizer every 12 hours -Continue Xarelto -D/C regular BiPAP as patient not tolerating this well -Continue with [id number] and Pneumovax -Case management should be consulted for assisting with obtaining CoughAssist machine as well as chest vest therapy for home use as per pulmonary recommendation Continue supplemental O2 to keep pulse ox greater than 92% - if decompensates again here ok to use non-invasive ventilation but no intubation, aware of poor long term care social worker prognosis but patient has little insight to make decisions. (2) Aspiration pneumonia: Plan: Video swallow study here showed: * Silent aspiration of all liquid bolus presentations * No palak aspiration of pudding or crackers however there was residual in the vallecula and piriform sinuses * Attempted strategy use were ineffective * Patient with severe pharyngeal stage dysphagia Patient not able to effectively use throat clearing and cleansing swallows to clear material in the laryngeal vestibule. Diet modification not particularly helpful Focus on good oral hygiene to minimize oral bacteria Continue with aspiration precautions Patient would benefit from supervised feedings Single bites/small sips/slow rate No straws Follow BAL cultures Will switch to minced and moist diet as he was getting large pieces of meat and prefers to eat the potatoes anyway. Last day of Unasyn today. Will switch to Augmentin BID on discharge as CXR continues to get worse. (3) Metabolic encephalopathy: Plan: Mentation seems to be improving but still with short-term memory loss which contributes to Lupron therapy previously Possible metabolic encephalopathy due to hyponatremia Sodium level stable to improved Seems to be at his baseline mental status at this time (4) Acute hyponatremia: Plan: With a history of chronic hyponatremia in the setting of chronic diastolic CHF with baseline sodium 124-130s With acute hyponatremia upon admission with a sodium of 120 Was given multiple doses of tolvaptan Secondary to overdiuresis Fluid status has been difficult to manage secondary to patient's use of Aldactone, Zaroxolyn, Bumex Diuretics have been held for rising creatinine-okay to continue spironolactone Nephrology following as well. Appreciate Drs. Mendoza and Farhad's input Continue to hold NaCl, sodium stable. (5) Acute on chronic diastolic (congestive) heart failure: Plan: Follows with the heart clinic Appears to be relatively euvolemic off bumex. (6) Acute UTI: Plan: Urine culture with mixed organisms Urinalysis had 4+ bacteria and greater than 30 whites with 0 epithelial cells Received ceftriaxone in the emergency room on 12/14/2020, followed by ciprofloxacin x3 days, now on Unasyn as above for aspiration Just completed recent radiation therapy for prostate cancer Keep gar catheter in for palliative purposes (7) Stage 3b chronic kidney disease: Plan: Baseline creatinine appears to be 1.4-1.5. Creatinine was up to 1.43 nephrology giving normal saline Continue to hold bumex. CXR finsings secondary to aspiration rather than fluid Follow serial labs (8) Atrial fibrillation: Plan: Permanent atrial fibrillation Rates are well controlled Continue home atenolol (9) Pulmonary hypertension: Plan: Likely type II Continue oxygen supplementation and diuretics as tolerated (10) Hypertension: Plan: Well-controlled Continue atenolol Vital signs per protocol (11) Memory loss: Plan: Continue repletion of electrolytes to maintain balance CT head with no acute findings (12) BPH NOS w ur obs/LUTS: Plan: With a history of prostate cancer status post recent radiation therapy Continue tamsulosin Follow strict I's and O's (13) Hypokalemia: Plan: Potassium levels been climbing secondary to holding of diuretics Change potassium supplement from home dose of 30 mEq p.o. 3 times daily to 30 mEq once daily Monitor daily labs (14) Hx of gout: Plan: Continue allopurinol (15) Prostate cancer: Plan: Status post recent radiation therapy (16) DVT prophylaxis: Plan: Xarelto Plan: Planning on discharging on hospice care since CXR getting worse he is clearly continuing to aspirate into this lung. If personal care facility unable to cough vest recommend still discharging on hospice tomorrow. Admission and Anticipated Discharge Date Admission Date: December 14, 2020 Subjective No shortness of breath. Not tolerating BiPAP well. Wet cough. Review of Systems Review of Systems: Unobtainable due to cognitive status Physical Exam Constitutional: WD/WN, vitals as above + obese Eyes: + anicteric sclerae Neck: trachea midline, no thyromegaly Respiratory: + cough; no respiratory distress Auscultation: + rhonchi (Left, upper airway sounds b/l); no wheezes Cardiovascular: Rate/Rhythm: regular rate and + irregularly irregular Extremities: + edema (2+ pitting edema of the bilateral lower extremities) Gastrointestinal (Abdomen): normal bowel sounds, soft, nontender, no hepatosplenomegaly Musculoskeletal: Extremities: no cyanosis and no clubbing Skin: no rashes, warm and dry Neurologic: moves all extremities and awake; no focal motor deficits Psychiatric: Orientation: alert, oriented to person, oriented to place and cooperative Results & Data Results & Data ([facility]) Vital Signs (Past 12 Hours) Vital Signs Temp Pulse Pulse Resp BP BP Pulse Ox 12/24/20 16:10 36.5 C 88 22 147/78 H 97 12/24/20 14:16 70 31 H 99 12/24/20 08:00 36.6 C 74 16 133/81 100 12/24/20 07:52 76 20 98 12/24/20 06:14 83 28 H 98 PG Care Time/CCT Total # of Minutes Spent Total Time Spent with Patient: Total time spent is greater than 50% in coordination of care (as documented) at patient's floor/unit and/or counseling patient: Coding Level of Care Code 06275 Subseq Hosp Care Lvl 1 Diagnoses Acute respiratory failure with hypoxia J96.01 Aspiration pneumonia J69.0 Metabolic encephalopathy G93.41 Acute hyponatremia E87.1 Acute on chronic diastolic (congestive) heart failure I50.33 Acute UTI N39.0 Stage 3b chronic kidney disease N18.32 Atrial fibrillation I48.21 Atrial fibrillation type: permanent Pulmonary hypertension I27.20 Hypertension I10 Memory loss R41.3 BPH NOS w ur obs/LUTS N40.1 Hypokalemia E87.6 Hx of gout Z87.39 Prostate cancer C61 DVT prophylaxis Z29.9 (1) Atrial fibrillation Atrial fibrillation type: permanent Qualified Code(s): I48.21 - Permanent atrial fibrillation
[2020-12-24] MEDS: ACETAMINOPHEN 325 MG TAB PO PRN (22:46)
[2020-12-25] MEDS: AMOXICILLIN/CLAVULANATE 875 MG TAB PO SCH ×2 (08:04→19:16)
[2020-12-25] MEDS: SPIRONOLACTONE 25 MG TAB PO SCH (08:04)
[2020-12-25] MEDS: ACETYLCYSTEINE 20% INHAL SOLN 4ML ***DISPENSED BY RESP. INH SCH ×2 (08:08→19:28)
[2020-12-25] MEDS: ALBUT/IPRATROP 3MG/0.5MG NEB 3 ML VIAL NEB SCH ×2 (08:08→19:28)
[2020-12-25] MEDS: guaiFENesin 600 MG TABCR PO SCH ×2 (09:19→20:31)
[2020-12-25] MEDS: RIVAROXABAN 15 MG TAB PO SCH (09:19)
[2020-12-25] MEDS: PSYLLIUM 58.6% POWDER PACKET PO SCH (09:19)
[2020-12-25] MEDS: ATENOLOL 25 MG TABLET PO SCH (09:19)
[2020-12-25] MEDS: POTASSIUM CHLORIDE 10 MEQ TABCR PO SCH (09:19)
[2020-12-25] MEDS: allopurinoL 100 MG TAB PO SCH (11:48)
[2020-12-25 13:11] LABS: Basophils # (auto) 0.01 K/uL (0-0.2); Basophils % (auto) 0.3 %; Eosinophils # (auto) 0.07 K/uL (0-0.5); Eosinophils % (auto) 1.8 %; Hematocrit (blood only) 30.4 % (42-52); Hemoglobin 9.8 g/dL (14.0-18.0); Immature Granulocytes # (auto) 0.09 K/uL (0.00-0.02); Immature Granulocytes % (auto) 2.3 %; Lymphocytes # (auto) 0.42 K/uL (1.2-3.4); Lymphocytes % (auto) 10.7 %; Mean Corpuscular Hemoglobin 33.7 pg (25-34); Mean Corpuscular Hgb Conc 32.2 g/dL (32-36); Mean Corpuscular Volume 104.5 fL (80-100); Monocytes # (auto) 0.36 K/uL (0.11-0.59); Monocytes % (auto) 9.2 %; Neutrophils # (auto) 2.96 K/uL (1.4-6.5); Neutrophils % (auto) 75.7 %; Nucleated RBC # (auto) 0.05 K/uL (0-0); Nucleated RBC % (auto) 1.2 %; Platelet Count 121 K/uL (130-400); RDW Coefficient of Variation 18.4 % (11.5-14.5); RDW Standard Deviation 70.8 fL (36.4-46.3); Red Blood Count 2.91 M/uL (4.7-6.1); White Blood Count 3.91 K/uL (4.8-10.8)
[2020-12-25 13:37] LABS: Anisocytosis Present; Basophilic Stippling 1+; Giant Platelets 1+; Platelet Estimate Decreased (Normal); Poikilocytosis Present; Toxic Granulation 1+
[2020-12-25 13:50] LABS: Albumin Level 2.7 gm/dl (3.4-5.0); BUN Creatinine Ratio 49.1 (10-20); Calcium 8.5 mg/dl (8.5-10.1); Creatinine Clr Calc Pharmacy 59.2 ml/min; Est GFR (African American) 62.5 ml/min; Est GFR (Non-African American) 53.9 ml/min; Potassium 4.9 mmol/L (3.5-5.1)
[2020-12-25 13:56] LABS: Albumin Globulin Ratio 0.8 (0.9-2); Bilirubin,Total 0.5 mg/dl (0.2-1); C Reactive Protein 3.48 mg/dl (0-0.29); Globulin 3.5 gm/dl (2.5-4.0); Total Protein 6.2 gm/dl (6.4-8.2)
[2020-12-25] MEDS ORDERED: dexAMETHasone 6 MG in SYRINGE 0 ML IV SCH (16:00)
[2020-12-25] MEDS: TAMSULOSIN HCL 0.4 MG CAP PO SCH (19:16)
--- NOTE | 2020-12-25 21:00 | Hospitalist Progress Note ---
Date of Service December 25, 2020 Assessment & Plan (1) Acute respiratory failure with hypoxia: Plan: Secondary to mucous plugging and recurrent aspiration pneumonia causing recurrent collapse of left lung Bronchoscopy 12/18/20 with copious amounts of mucus and large mucous plug straddling the right and left main bronchus Repeat bronchoscopy on 12/21 again with thick hardened large amount of mucus secretions suctioned out of left lung Acetylcysteine introduced via bronchoscopy Has very poor cough effort -Continue acetylcysteine nebulizer every 12 hours -Continue Xarelto -D/C regular BiPAP as patient not tolerating this well -Continue with [id number] and Pneumovax -Case management should be consulted for assisting with obtaining CoughAssist machine as well as chest vest therapy for home use as per pulmonary recommendation Continue supplemental O2 to keep pulse ox greater than 92% - if decompensates again here ok to use non-invasive ventilation but no intubation, aware of poor pulley mortiser operator prognosis but patient has little insight to make decisions. (2) COVID-19: Plan: Incidental finding although patient is short of breath this hasn't changed significantly throughout his admission Given elevated CRP and worsening CXR changes despite no change in hypoxia will start dexamethasone. Isolation precautions Discussed with Dr Pineda and will order PCR COVID swab for confirmation (3) Aspiration pneumonia: Plan: Video swallow study here showed: * Silent aspiration of all liquid bolus presentations * No palak aspiration of pudding or crackers however there was residual in the vallecula and piriform sinuses * Attempted strategy use were ineffective * Patient with severe pharyngeal stage dysphagia Patient not able to effectively use throat clearing and cleansing swallows to clear material in the laryngeal vestibule. Diet modification not particularly helpful Focus on good oral hygiene to minimize oral bacteria Continue with aspiration precautions Patient would benefit from supervised feedings Single bites/small sips/slow rate No straws Continue minced and moist diet as he was getting large pieces of meat and pref ers to eat the potatoes anyway. Last day of Unasyn 12/24. Stop further Augmentin as procalcitonin now negative and possible worsening due to COVID as above. (4) Metabolic encephalopathy: Plan: Mentation seems to be improving but still with short-term memory loss which contributes to Lupron therapy previously Possible metabolic encephalopathy due to hyponatremia Sodium level stable to improved Seems to be at his baseline mental status at this time (5) Acute hyponatremia: Plan: With a history of chronic hyponatremia in the setting of chronic diastolic CHF with baseline sodium 124-130s With acute hyponatremia upon admission with a sodium of 120 Was given multiple doses of tolvaptan Secondary to overdiuresis Fluid status has been difficult to manage secondary to patient's use of Aldactone, Zaroxolyn, Bumex Diuretics have been held for rising creatinine-okay to continue spironolactone Nephrology following as well. Appreciate Drs. Mendoza and Farhad's input Continue to hold NaCl, sodium stable. (6) Acute on chronic diastolic (congestive) heart failure: Plan: Follows with the heart clinic Appears to be relatively euvolemic off bumex. (7) Acute UTI: Plan: Urine culture with mixed organisms Urinalysis had 4+ bacteria and greater than 30 whites with 0 epithelial cells Received ceftriaxone in the emergency room on 12/14/2020, followed by ciprofloxacin x3 days, now on Unasyn as above for aspiration Just completed recent radiation therapy for prostate cancer Keep gar catheter in for palliative purposes (8) Stage 3b chronic kidney disease: Plan: Baseline creatinine appears to be 1.4-1.5. Creatinine was up to 1.43 nephrology giving normal saline Continue to hold bumex. CXR findings secondary to aspiration rather than fluid Follow serial labs (9) Atrial fibrillation: Plan: Permanent atrial fibrillation Rates are well controlled Continue home atenolol (10) Pulmonary hypertension: Plan: Likely type II Continue oxygen supplementation and diuretics as tolerated (11) Hypertension: Plan: Well-controlled Continue atenolol Vital signs per protocol (12) Memory loss: Plan: Continue repletion of electrolytes to maintain balance CT head with no acute findings (13) BPH NOS w ur obs/LUTS: Plan: With a history of prostate cancer status post recent radiation therapy Continue tamsulosin Follow strict I's and O's (14) Hypokalemia: Plan: Potassium levels been climbing secondary to holding of diuretics Change potassium supplement from home dose of 30 mEq p.o. 3 times daily to 30 mEq once daily Monitor daily labs (15) Hx of gout: Plan: Continue allopurinol (16) Prostate cancer: Plan: Status post recent radiation therapy (17) DVT prophylaxis: Plan: Xarelto Plan: Disposition - unclear as [facility] will no longer take him if COVID-19 positive Admission and Anticipated Discharge Date Admission Date: December 14, 2020 Subjective Patient at baseline shortness of breath. Feels more short of breath than his oxygen requirement shows. No fever or chills. Chronic aspiration cough. On routine testing for COVID for hospital discharge to [facility] this was positive. His CXR has been showing more opacities but this was suspected to be due to his chronic aspirations. Long discussion with his that she wouldn't be able to visit him unless he was to acutely deteriorate. Updated her again over the phone. Review of Systems Review of Systems: All systems reviewed & are unremarkable except as noted in HPI & below Physical Exam Constitutional: WD/WN, vitals as above + obese Eyes: + anicteric sclerae Neck: trachea midline, no thyromegaly Respiratory: + cough; no respiratory distress Auscultation: + rhonchi (Left, upper airway sounds b/l); no wheezes Cardiovascular: Rate/Rhythm: regular rate and + irregularly irregular Extremities: + edema (3+ pitting edema of the bilateral lower extremities) Gastrointestinal (Abdomen): normal bowel sounds, soft, nontender, no hepatosplenomegaly Musculoskeletal: Extremities: no cyanosis and no clubbing Skin: no rashes, warm and dry Neurologic: moves all extremities and awake; no focal motor deficits Psychiatric: Orientation: alert, oriented to person and cooperative; + not oriented to place Results & Data Results & Data ([facility]) Vital Signs (Past 12 Hours) Vital Signs Temp Pulse Resp BP Pulse Ox 12/25/20 19:29 85 22 95 12/25/20 15:08 36.9 C 80 17 118/68 94 PG Care Time/CCT Total # of Minutes Spent Total Time Spent with Patient: Total time spent is greater than 50% in coordination of care (as documented) at patient's floor/unit and/or counseling patient: Coding Level of Care Code 71966 Subseq Hosp Care Lvl 2 Diagnoses Acute respiratory failure with hypoxia J96.01 Aspiration pneumonia J69.0 Metabolic encephalopathy G93.41 Acute hyponatremia E87.1 Acute on chronic diastolic (congestive) heart failure I50.33 Acute UTI N39.0 Stage 3b chronic kidney disease N18.32 Atrial fibrillation I48.21 Atrial fibrillation type: permanent Pulmonary hypertension I27.20 Hypertension I10 Memory loss R41.3 BPH NOS w ur obs/LUTS N40.1 Hypokalemia E87.6 Hx of gout Z87.39 Prostate cancer C61 DVT prophylaxis Z29.9 COVID-19 U07.1 (1) Atrial fibrillation Atrial fibrillation type: permanent Qualified Code(s): I48.21 - Permanent atrial fibrillation
[2020-12-26 06:24] LABS: Basophils # (auto) 0.01 K/uL (0-0.2); Basophils % (auto) 0.3 %; Hematocrit (blood only) 29.9 % (42-52); Hemoglobin 9.8 g/dL (14.0-18.0); Immature Granulocytes # (auto) 0.12 K/uL (0.00-0.02); Immature Granulocytes % (auto) 3.6 %; Lymphocytes # (auto) 0.18 K/uL (1.2-3.4); Lymphocytes % (auto) 5.4 %; Mean Corpuscular Hemoglobin 34.1 pg (25-34); Mean Corpuscular Hgb Conc 32.8 g/dL (32-36); Mean Corpuscular Volume 104.2 fL (80-100); Mean Platelet Volume 10.3 fL (7.4-10.4); Monocytes # (auto) 0.07 K/uL (0.11-0.59); Monocytes % (auto) 2.1 %; Neutrophils # (auto) 2.97 K/uL (1.4-6.5); Neutrophils % (auto) 88.6 %; Nucleated RBC # (auto) 0.04 K/uL (0-0); Nucleated RBC % (auto) 1.3 %; Platelet Count 140 K/uL (130-400); RDW Coefficient of Variation 18.2 % (11.5-14.5); RDW Standard Deviation 70.1 fL (36.4-46.3); Red Blood Count 2.87 M/uL (4.7-6.1); White Blood Count 3.35 K/uL (4.8-10.8)
[2020-12-26 06:58] LABS: BUN Creatinine Ratio 54.8 (10-20); Calcium 8.9 mg/dl (8.5-10.1); Creatinine Clr Calc Pharmacy 67.2 ml/min; Est GFR (African American) 72.8 ml/min; Est GFR (Non-African American) 62.8 ml/min
[2020-12-26] MEDS: ACETYLCYSTEINE 20% INHAL SOLN 4ML ***DISPENSED BY RESP. INH SCH ×2 (08:01→19:41)
[2020-12-26] MEDS: ALBUT/IPRATROP 3MG/0.5MG NEB 3 ML VIAL NEB SCH ×2 (08:01→19:42)
[2020-12-26] MEDS: guaiFENesin 600 MG TABCR PO SCH ×2 (09:10→20:10)
[2020-12-26] MEDS: PSYLLIUM 58.6% POWDER PACKET PO SCH (09:10)
[2020-12-26] MEDS: ATENOLOL 25 MG TABLET PO SCH (09:10)
[2020-12-26] MEDS: RIVAROXABAN 15 MG TAB PO SCH (09:10)
[2020-12-26] MEDS: POTASSIUM CHLORIDE 10 MEQ TABCR PO SCH (09:10)
[2020-12-26] MEDS: SPIRONOLACTONE 25 MG TAB PO SCH (09:10)
[2020-12-26] MEDS ORDERED: MoRPHine SULFATE 5 MG/0.25 ML UDP PO PRN (11:39)
--- NOTE | 2020-12-26 12:05 | XRay Report ---
SINGLE VIEW CHEST CLINICAL HISTORY: Hypoxia. FINDINGS: An AP, portable, upright chest radiograph is compared to study dated 12/24/2020 and correlate d with chest CT dated 12/17/2020. The examination is degraded by portable technique and patient rotati on. The heart is enlarged noting atherosclerotic calcification of the thoracic aorta. There is pulmon robson vascular congestion. There is volume loss and postoperative change in the left lung. Multifocal a irspace consolidation is again seen throughout both lungs. This has modestly cleared in the left uppe r lung as compared to previous. Small pleural effusions are noted. No pneumothorax is seen. The skele estella structures are osteopenic. The bony thorax is grossly intact. IMPRESSION: 1. Multifocal airspace consolidation is again seen throughout both lungs. This has modestly cleared i n the left upper lung as compared 12/24/2020. 2. Cardiomegaly with pulmonary vascular congestion and small pleural effusions. ACT 112: Negative or not required by law. Electronically signed by: Reji Almonte M.D. 12/26/2020 12:04 PM
--- NOTE | 2020-12-26 13:04 | Palliative Care Progress Note ---
Date of Service December 26, 2020 Assessment & Plan (1) Dyspnea: Plan: With maximal medical management. Add roxanol prn for air hunger and labored breathing. His has been very clear that comfort is highest priority at this time. (2) Palliative care encounter: Plan: Goal for return to SNF at his longterm community. He will have repeat Covid test today. If negative, he can return to [facility] with comfort directed care. POLST is completed and on chart. I called his x 3 to discuss but no answer. (3) COVID-19: (4) Aspiration pneumonia: (5) Metabolic encephalopathy: (6) Acute on chronic diastolic (congestive) heart failure: Admission and Anticipated Discharge Date Admission Date: December 14, 2020 Subjective Confused at times. Reports feeling short of breath. Negative fluid balance with diuresis. Covid screen positive though PCR is negative. Review of Systems Review of Systems: [place] Symptom Assessment Scale Pain 0/3 Dyspnea 2/3 Anxiety 2/3 Fatigue 2/3 Nausea 0/3 Drowsiness 0/3 Palliative Performance Score 30% Physical Exam Constitutional: + ill appearing; + uncomfortable ENMT: Mouth: + dry oral mucous membranes Respiratory: + labored breathing; does not use accessory muscles Cardiovascular: Extremities: + edema (decreased) Gastrointestinal (Abdomen): Inspection/Auscultation: + significant pannus Skin: vascular skin changes, lower extremities Neurologic: awake and + confused Results & Data ([facility]) Vital Signs (Past 12 Hours) Vital Signs Temp Pulse Resp BP Pulse Ox 12/26/20 09:04 97.5 F L 89 20 156/88 H 99 12/26/20 08:01 81 20 99 PG Care Time/CCT Total # of Minutes Spent Total Time Spent with Patient: Total time spent is greater than 50% in coordination of care (as documented) at patient's floor/unit and/or counseling patient: Coding Level of Care Code 21335 Subseq Hosp Care Lvl 2 Diagnoses Dyspnea R06.00 Palliative care encounter Z51.5 COVID-19 U07.1 Aspiration pneumonia J69.0 Metabolic encephalopathy G93.41 Acute on chronic diastolic (congestive) heart failure I50.33
[2020-12-26] MEDS: allopurinoL 100 MG TAB PO SCH (14:17)
[2020-12-26] MEDS ORDERED: BUMETANIDE 1 MG TAB PO ONE (14:43)
[2020-12-26] MEDS: TAMSULOSIN HCL 0.4 MG CAP PO SCH (17:52)
--- NOTE | 2020-12-26 18:08 | Hospitalist Progress Note ---
Date of Service December 26, 2020 Assessment & Plan (1) Acute respiratory failure with hypoxia: Plan: Secondary to mucous plugging and recurrent aspiration pneumonia causing recurrent collapse of left lung Bronchoscopy 12/18/20 with copious amounts of mucus and large mucous plug straddling the right and left main bronchus Repeat bronchoscopy on 12/21 again with thick hardened large amount of mucus secretions suctioned out of left lung Acetylcysteine introduced via bronchoscopy Has very poor cough effort -Continue acetylcysteine nebulizer every 12 hours -Continue Xarelto -D/C regular BiPAP as patient not tolerating this well -Continue with [id number] and Pneumovax -Case management should be consulted for assisting with obtaining CoughAssist machine as well as chest vest therapy for home use as per pulmonary recommendation Continue supplemental O2 to keep pulse ox greater than 92% - if decompensates again here ok to use non-invasive ventilation but no intubation, aware of poor intermediate teacher prognosis but patient has little insight to make decisions. (2) COVID-19: Plan: Isolation precautions Cepheid negative. Suspect initial test false positive. Will repeat Cepheid tonight, if negative remove isolation precautions. (3) Aspiration pneumonia: Plan: Video swallow study here showed: * Silent aspiration of all liquid bolus presentations * No palak aspiration of pudding or crackers however there was residual in the vallecula and piriform sinuses * Attempted strategy use were ineffective * Patient with severe pharyngeal stage dysphagia Patient not able to effectively use throat clearing and cleansing swallows to clear material in the laryngeal vestibule. Diet modification not particularly helpful Focus on good oral hygiene to minimize oral bacteria Continue with aspiration precautions Patient would benefit from supervised feedings Single bites/small sips/slow rate No straws Continue minced and moist diet as he was getting large pieces of meat and prefers to eat the potatoes anyway. Last day of Unasyn 12/24. Stop further Augmentin as procalcitonin now negative and possible worsening due to COVID as above. (4) Metabolic encephalopathy: Plan: Mentation seems to be improving but still with short-term memory loss which contributes to Lupron therapy previously Possible metabolic encephalopathy due to hyponatremia Sodium level stable to improved Seems to be at his baseline mental status at this time (5) Acute hyponatremia: Plan: With a history of chronic hyponatremia in the setting of chronic diastolic CHF with baseline sodium 124-130s With acute hyponatremia upon admission with a sodium of 120 Was given multiple doses of tolvaptan Secondary to overdiuresis Fluid status has been difficult to manage secondary to patient's use of Aldactone, Zaroxolyn, Bumex Diuretics have been held for rising creatinine-okay to continue spironolactone Appreciate nephrology input (6) Acute on chronic diastolic (congestive) heart failure: Plan: Follows with the heart clinic Will give one dose bumex 2mg PO today (7) Acute UTI: Plan: Urine culture with mixed organisms Urinalysis had 4+ bacteria and greater than 30 whites with 0 epithelial cells Received ceftriaxone in the emergency room on 12/14/2020, followed by ciprofloxacin x3 days, now on Unasyn as above for aspiration Just completed recent radiation therapy for prostate cancer Keep gar catheter in for palliative purposes (8) Stage 3b chronic kidney disease: Plan: Baseline creatinine appears to be 1.4-1.5. Creatinine was up to 1.43 nephrology giving normal saline. Now discontinued. (9) Atrial fibrillation: Plan: Permanent atrial fibrillation Rates are well controlled Continue home atenolol Anticoagulation with Xarelto (10) Pulmonary hypertension: Plan: Likely type II Continue oxygen supplementation and diuretics as tolerated (11) Hypertension: Plan: Well-controlled Continue atenolol Vital signs per protocol (12) Memory loss: Plan: Continue repletion of electrolytes to maintain balance CT head with no acute findings (13) BPH NOS w ur obs/LUTS: Plan: With a history of prostate cancer status post recent radiation therapy Continue tamsulosin Follow strict I's and O's (14) Hypokalemia: Plan: Potassium levels been climbing secondary to holding of diuretics Change potassium supplement from home dose of 30 mEq p.o. 3 times daily to 30 mEq once daily Monitor daily labs (15) Hx of gout: Plan: Continue allopurinol (16) Prostate cancer: Plan: Status post recent radiation therapy (17) DVT prophylaxis: Plan: Xarelto Plan: Disposition - to [facility] if second Cepheid COVID-19 test negative. Consideration of transition to hospice at [facility]. Admission and Anticipated Discharge Date Admission Date: December 14, 2020 Subjective Poor night last night, little sleep. Feels short of breath but CXR improved (probably cleared mucus plug himself). Hypoxia unchanged. Review of Systems Review of Systems: All systems reviewed & are unremarkable except as noted in HPI & below Physical Exam Constitutional: WD/WN, vitals as above + obese Eyes: + anicteric sclerae Neck: trachea midline, no thyromegaly Respiratory: + cough; no respiratory distress Auscultation: + rhonchi (Left, upper airway sounds b/l); no wheezes Cardiovascular: Rate/Rhythm: regular rate and + irregularly irregular Extremities: + edema (3+ pitting edema of the bilateral lower extremities) Gastrointestinal (Abdomen): normal bowel sounds, soft, nontender, no hepatosplenomegaly Skin: no rashes, warm and dry Psychiatric: Orientation: alert, oriented to person and cooperative; + not oriented to place Results & Data Results & Data ([facility]) Vital Signs (Past 12 Hours) Vital Signs Temp Pulse Resp BP Pulse Ox 12/26/20 14:21 36.5 C 80 18 156/81 H 97 12/26/20 09:04 36.4 C L 89 20 156/88 H 99 12/26/20 08:01 81 20 99 PG Care Time/CCT Total # of Minutes Spent Total Time Spent with Patient: Total time spent is greater than 50% in coordination of care (as documented) at patient's floor/unit and/or counseling patient: Coding Level of Care Code 73450 Subseq Hosp Care Lvl 2 Diagnoses Acute respiratory failure with hypoxia J96.01 COVID-19 U07.1 Aspiration pneumonia J69.0 Metabolic encephalopathy G93.41 Acute hyponatremia E87.1 Acute on chronic diastolic (congestive) heart failure I50.33 Acute UTI N39.0 Stage 3b chronic kidney disease N18.32 Atrial fibrillation I48.21 Atrial fibrillation type: permanent Pulmonary hypertension I27.20 Hypertension I10 Memory loss R41.3 BPH NOS w ur obs/LUTS N40.1 Hypokalemia E87.6 Hx of gout Z87.39 Prostate cancer C61 DVT prophylaxis Z29.9 (1) Atrial fibrillation Atrial fibrillation type: permanent Qualified Code(s): I48.21 - Permanent atrial fibrillation
[2020-12-27] MEDS: ALBUT/IPRATROP 3MG/0.5MG NEB 3 ML VIAL NEB SCH (07:33)
[2020-12-27] MEDS: ACETYLCYSTEINE 20% INHAL SOLN 4ML ***DISPENSED BY RESP. INH SCH (07:34)
[2020-12-27 09:16] VITALS: TEMP 97.3; O2SAT 99
[2020-12-27] MEDS: SPIRONOLACTONE 25 MG TAB PO SCH (09:17)
[2020-12-27] MEDS: PSYLLIUM 58.6% POWDER PACKET PO SCH (09:17)
[2020-12-27] MEDS: guaiFENesin 600 MG TABCR PO SCH (09:17)
[2020-12-27] MEDS: RIVAROXABAN 15 MG TAB PO SCH (09:18)
[2020-12-27] MEDS: ATENOLOL 25 MG TABLET PO SCH (09:18)
[2020-12-27] MEDS: POTASSIUM CHLORIDE 10 MEQ TABCR PO SCH (09:42)
[2020-12-27] MEDS: allopurinoL 100 MG TAB PO SCH (11:24)
[2020-12-27 12:28] VITALS: BP 132/70; PULSE 66
--- NOTE | 2020-12-27 12:37 | Discharge Summary ---
Date of Service December 27, 2020 Admission HPI Per Admitting Provider 79 y/o M Hx HTN, gout, obese, atrial fibrillation, diastolic CHF, chronic anemia, CKD III, hyponatremia, prostate CA - recently completed radiation therapy. The pt has been complaining of weakness. Routine labs demonstrated worsening hyponatremia with a sodium of 120. A repeat in the ER returned at 122. Labs are additionally notable for a + UA. He does not describe nausea/vomiting/diarrhea or dysuria. It is noted that he was recently switched from Lasix to Bumex by his oral and maxillofacial surgery resident. PMH: 1) HTN 2) Gout 3) Chronic AF - bradycardic at baseline 4) Diastolic CHF 5) Chronic lower extremity edema and ulcers 6) CKD III 7) Normocytic anemia - baseline Hb 10-12 8) Paroxysmal VT 9) Prostate CA - completed radiation 06/2020 10) Lumbar stenosis 11) Morbidly obese 12) Uremia Surgical: 1) BL TKA 2) Cataract 3) Lumbar fusion 4) Lithotripsy Social: Does not drink or smoke - lives with who manages his care Family: Mother - ESRD Father's cause of not known Discharge Data Allergies Allergy/AdvReac Type Severity Reaction Status Date / Time ceftriaxone [From Rocephin] Allergy Mild Rash Verified 12/07/20 14:13 gabapentin Allergy Mild Rash Verified 12/07/20 14:13 pregabalin [From Lyrica] AdvReac Severe SUICIDAL Verified 12/25/20 12:40 Consultations 12/14/20 19:33 Consult Nephrology Routine 12/17/20 13:57 Consult Pulmonology Routine 12/20/20 12:02 Consult Palliative Care Routine Procedures Performed Operation Date: 12/18/20 08:00 Actual Procedures p Bronchoscopy(Bilateral) - Maximsu Pineda MD Operation Date: 12/21/20 08:00 Actual Procedures p Bronchoscopy(Bilateral) - Maximus Pineda MD Ordered Studies 12/14/20 13:10 CT head/brain wo con Stat 12/17/20 13:57 CT chest diagnostic wo con Urgent 12/19/20 13:45 FL video swallow Routine Hospital Course (1) Acute respiratory failure with hypoxia: Secondary to mucous plugging and recurrent aspiration pneumonia causing recurrent collapse of left lung Bronchoscopy 12/18/20 with copious amounts of mucus and large mucous plug straddling the right and left main bronchus Repeat bronchoscopy on 12/21 again with thick hardened large amount of mucus secretions suctioned out of left lung Acetylcysteine introduced via bronchoscopy Has very poor cough effort -Continue acetylcysteine nebulizer every 12 hours -Continue Xarelto -D/C regular BiPAP as patient not tolerating this well -Continue with [id number] and Pneumovax -Case management should be consulted for assisting with obtaining CoughAssist machine as well as chest vest therapy for home use as per pulmonary recommendation Continue supplemental O2 to keep pulse ox greater than 92% - if decompensates again here ok to use non-invasive ventilation but no intubation, 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 (2) COVID-19: Isolation precautions Cepheid negative. Suspect initial test false positive. Will repeat Cepheid tonight, if negative remove isolation precautions. (3) Aspiration pneumonia: Video swallow study here showed: * Silent aspiration of all liquid bolus presentations * No palak aspiration of pudding or crackers however there was residual in the vallecula and piriform sinuses * Attempted strategy use were ineffective * Patient with severe pharyngeal stage dysphagia Patient not able to effectively use throat clearing and cleansing swallows to clear material in the laryngeal vestibule. Diet modification not particularly helpful Focus on good oral hygiene to minimize oral bacteria Continue with aspiration precautions Patient would benefit from supervised feedings Single bites/small sips/slow rate No straws Continue minced and moist diet as he was getting large pieces of meat and prefers to eat the potatoes anyway. Last day of Unasyn 12/24. Stop further Augmentin as procalcitonin now negative and possible worsening due to COVID as above. (4) Metabolic encephalopathy: Mentation seems to be improving but still with short-term memory loss which contributes to Lupron therapy previously Possible metabolic encephalopathy due to hyponatremia Sodium level stable to improved Seems to be at his baseline mental status at this time (5) Acute hyponatremia: With a history of chronic hyponatremia in the setting of chronic diastolic CHF with baseline sodium 124-130s With acute hyponatremia upon admission with a sodium of 120 Was given multiple doses of tolvaptan Secondary to overdiuresis Fluid status has been difficult to manage secondary to patient's use of Aldactone, Zaroxolyn, Bumex Diuretics have been held for rising creatinine-okay to continue spironolactone Appreciate nephrology input (6) Acute on chronic diastolic (congestive) heart failure: Follows with the heart clinic Will give one dose bumex 2mg PO today (7) Acute UTI: Urine culture with mixed organisms Urinalysis had 4+ bacteria and greater than 30 whites with 0 epithelial cells Received ceftriaxone in the emergency room on 12/14/2020, followed by ciproflo xacin x3 days, now on Unasyn as above for aspiration Just completed recent radiation therapy for prostate cancer Keep gar catheter in for palliative purposes (8) Stage 3b chronic kidney disease: Baseline creatinine appears to be 1.4-1.5. Creatinine was up to 1.43 nephrology giving normal saline. Now discontinued. (9) Atrial fibrillation: Permanent atrial fibrillation Rates are well controlled Continue home atenolol Anticoagulation with Xarelto (10) Pulmonary hypertension: Likely type II Continue oxygen supplementation and diuretics as tolerated (11) Hypertension: Well-controlled Continue atenolol Vital signs per protocol (12) Memory loss: Continue repletion of electrolytes to maintain balance CT head with no acute findings (13) BPH NOS w ur obs/LUTS: With a history of prostate cancer status post recent radiation therapy Continue tamsulosin Follow strict I's and O's (14) Hypokalemia: Potassium levels been climbing secondary to holding of diuretics Change potassium supplement from home dose of 30 mEq p.o. 3 times daily to 30 mEq once daily Monitor daily labs (15) Hx of gout: Continue allopurinol (16) Prostate cancer: Status post recent radiation therapy (17) DVT prophylaxis: Xarelto Disposition - to [facility] if second Cepheid COVID-19 test negative. Consideration of transition to hospice at [facility]. Discharge Plan Discharge Items Patient Disposition: Transfer [facility] Fac Reason For Visit: HYPONATREMIA Discharge Diagnosis: Aspiration pneumonia Acute kidney injury Hyponatremia due to diuretic use Acute urinary tract infection Activity: Resume your previous activity Non-emergency contact: Primary Care Provider Call non-emergency contact if: you have any medication questions and your symptoms worsen Follow-up/Referrals: Faiza Aguilar MD [Primary Care Provider] - Diet: Heart Healthy Diet Texture: Mechanical soft (ground) Addtl Attending Provider Instructions: Mauricio Lundberg is a 79 year old male admitted to [facility] from December 14 to December 27, 2020 due to generalized weakness. He was diagnosed with hyponatremia and acute kidney injury due to diuretic use and urinary tract infection treated with intravenous antibiotics. Unfortunately despite improvement in his mentation he continued to aspirate on all solids, liquids and his own secretions. He developed an aspiration pneumonia requiring x2 bronchoscopies (12/18 and 12/21) to remove mucus plugs. Due to friable tissue continued bronchoscopies were not recommended. On discussion with palliative care with his she wished for him to be transitioned to a more palliative approach. He will be transferred to [facility] for rehabilitation but if he continues to decline will be transitioned to hospice care. If able use a cough assist device to help with mucus plug or use flutter valve as able. He has been taken off his BiPAP at night as he has not been tolerating this. Use Roxanol as needed for air hunger. POLST form has been signed. Follow aspiration precautions when feeding. Continue on his chronic 4LPM O2 to maintain saturation > 94% as able. Pending Studies at Discharge: No Stand-Alone Forms: My [facility] Skilled Items Patient informed of condition?: Yes DNR: Yes Discharge Level of Care: Skilled Communicable Disease: No Discharge Prognosis: Deteriorating Lines: None Urinary Catheter: Yes Medications and DC Order Prescriptions: New acetylcysteine 200 mg/mL (20 %) Solution 5 ml inhalation Q12H Qty: 100 RF: 0 guaifenesin [Mucinex] 600 mg Tablet Extended Release 12hr 1,200 mg PO Q12 Qty: 120 RF: 0 morphine 20 mg/5 mL (4 mg/mL) solution 5 mg PO Q6H PRN (Reason: pain or shortness of breath) Qty: 500 RF: 0 Continued Metamucil 3.4 gram/5.4 gram powder 1 tbsp PO DAILY RF: 0 atenolol 25 mg tablet 25 mg PO DAILY Qty: 90 RF: 3 Xarelto 15 mg tablet 15 mg PO DAILY Qty: 90 RF: 3 allopurinol 100 mg tablet 200 mg PO QDL Qty: 180 RF: 1 spironolactone 25 mg tablet 25 mg PO QDB RF: 0 Hold Instructions: hyponatremia (DME) Aquacel Extra 2 X 2 " bandage See Rx Instructions .ROUTE .MEDSUPPLY Qty: 10 RF: 0 (DME) Aquacel Extra 4 X 5 " bandage See Rx Instructions .ROUTE .MEDSUPPLY Qty: 5 RF: 0 tamsulosin 0.4 mg capsule 0.4 mg PO QDD RF: 0 Changed potassium chloride 10 mEq capsule, extended release 30 meq PO DAILY Qty: 500 RF: 4 Discontinued Eligard (3 month) 22.5 mg syringe 22.5 mg subcut ONCE Qty: 1 RF: 0 cholecalciferol (vitamin D3) 25 mcg (1,000 unit) capsule 25 mcg PO DAILY Qty: 30 RF: 0 fluocinonide 0.05 % cream 1 applic TOP DAILY PRN (Reason: SKIN ISSUES) Qty: 30 RF: 3 metolazone 2.5 mg tablet 2.5 mg PO Q OTHER DAY 90 Days Qty: 45 RF: 1 Hold Instructions: hyponatremia Shante-C with Bioflavonoids 1,000-200 mg tablet 1 tab PO QDD RF: 0 bumetanide 2 mg tablet 2 mg PO BID Qty: 60 RF: 2 calcium carbonate [Calcium 600] 600 mg calcium (1,500 mg) tablet 600 mg PO DAILY RF: 0 methylprednisolone 4 mg tablet 4 mg PO DAILY PRN (Reason: gout) RF: 0 Centrum Silver 0.4-300-250 mg-mcg-mcg Tablet 1 tab PO QDL RF: 0 Discharge Orders: Discharge Order (Routine); Ordered 12/27/20 Ordered By: Tanner Bazan Admission Data Admit Date/Time: 12/14/20 15:41 Attending Provider: Tanner Bazan Admit Provider: Blade Chaidez Primary Care Provider: Faiza Aguilar V. Other Providers: Fabi Mendoza ; Maximus Pineda ; Karissa Shin Other Interventions: Discharge Summary Assessment (RN) Last Done: 12/27/20 12:26 Coding Diagnoses Acute respiratory failure with hypoxia J96.01 COVID-19 U07.1 Aspiration pneumonia J69.0 Metabolic encephalopathy G93.41 Acute hyponatremia E87.1 Acute on chronic diastolic (congestive) heart failure I50.33 Acute UTI N39.0 Stage 3b chronic kidney disease N18.32 Atrial fibrillation I48.21 Atrial fibrillation type: permanent Pulmonary hypertension I27.20 Hypertension I10 Memory loss R41.3 BPH NOS w ur obs/LUTS N40.1 Hypokalemia E87.6 Hx of gout Z87.39 Prostate cancer C61 DVT prophylaxis Z29.9
== END 2020-12-27 14:38 | DRG 640 ==
LOC: ED 12:24 → SUATTDRO 15:41 → 2N 15:41 → 3W 12-22 17:06 → 3E 12-25 14:29